=== PATIENT | male | born 1945 | race Caucasian/White ===

== ENCOUNTER 2019-11-02 11:52 | Emergency (ER) | payer BC, SELFPAY ==
--- NOTE | ~2019-11-02 | CT_ITS ---
EXAMINATION: CT brain wo con DATE: 11/02/2019 13:03 INDICATION: Dizziness. TECHNIQUE: Computed tomography (CT) of the head was performed without intravenous contrast. The mA wa s adjusted according to patient size. Iterative reconstruction technique was employed. The dose-lengt h product was 681.00 mGy-cm. COMPARISON: Head CT 07/07/2006 FINDINGS: There are small old infarcts in right cerebellum. There is chronic encephalomalacia in ante roinferior right temporal lobe There is no intracranial hemorrhage, acute infarction, or abnormal int racranial mass lesion. The ventricles are normal in size. There is mucosal thickening in the paranasa l sinuses. The mastoid air cells are normal. The orbits are normal. There is posterior scalp soft tis tonya swelling. IMPRESSION: 1. 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 2. Chronic encephalomalacia in anteroinferior right temporal lobe, which may be secondary to old infa rct or old traumatic brain injury. Reviewed, dictated and finalized at location A. CTOR OF RESERVATIONS IMPRESSION: 1. 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 2. Chronic encephalomalacia in anteroinferior right temporal lobe, which may be secondary to old infarct or old traumatic brain injury.
--- NOTE | 2019-11-02 12:20 | ECG_ITS ---
Measurements Intervals [place] Rate: 57 P: 53 [place]: 190 QRS: -33 QRSD: 126 T: 67 QT: 475 QTc: 464 Interpretive Statements SINUS BRADYCARDIA LEFT AXIS DEVIATION BORDERLINE AV CONDUCTION DELAY INTRAVENTRICULAR CONDUCTION DELAY LEFT VENTRICULAR HYPERTROPHY AND ST-T CHANGE DELAYED PRECORDIAL R/S TRANSITION BASELINE ARTIFACT- I, II, III, AVR, AVL, V1-V3 BORDERLINE ECG Electronically Signed On 11-02-2019 13:22:54 STAFF REPORTER by Tra Guillaume D.O.
[2019-11-02 12:31] VITALS: BP 120/61; PULSE 52; RESP 16; O2SAT 95
[2019-11-02 12:37] LABS: Basophils Percent Auto 0.7 % (0.2-1.2); Eosinophils Absolute Auto 0.2 K/mm3 (0-0.3); Eosinophils Percent Auto 3.6 % (0-4.4); Hematocrit 37.3 % (42.0-52.0); Hemoglobin 12.6 g/dL (14.0-18.0); Immature Granulocyte Absolute 0.01 K/mm3 (0.00-0.031); Immature Granulocyte Percent A 0.2 % (0-0.5); Lymphocytes Absolute Auto 1.02 K/mm3 (0.9-3.2); Lymphocytes Percent Auto 22.7 % (18.3-44.2); Mean Corpuscular HGB Conc 33.8 g/dl (32-36); Mean Corpuscular Hemoglobin 29.8 pg (26-34); Mean Corpuscular Volume 88.2 fl (80-100); Mean Platelet Volume 9.7 fl (7.4-10.4); Monocytes Absolute Auto 0.5 K/mm3 (0.1-0.6); Monocytes Percent Auto 10.4 % (2.6-8.5); Neutrophils Absolute Auto 2.8 K/mm3 (1.3-6.7); Neutrophils Percent Auto 62.4 % (45.5-73.1); Platelet Count Result 221 k/mm3 (150-375); Red Blood Count 4.23 M/mm3 (4.6-6.20); Red Cell Distribution Width 13.4 % (11.5-14.5); White Blood Count 4.5 K/mm3 (4.5-10.0)
--- NOTE | 2019-11-02 12:42 | PC.NURSE ---
to ct scan
[2019-11-02 12:44] LABS: Glucose Point of Care 121 (65-105)
[2019-11-02 12:48] LABS: Prothrombin Time 12.6 Seconds (11.1-14.7)
[2019-11-02 12:49] LABS: Blood Urea Nitrogen 23 mg/dL (9-20); Carbon Dioxide 28 mmol/L (22-30); Chloride 104 mmol/L (98-107); Estimated CRCL calculation 78 ml/min; Estimated Glomerular Filt Rate > 60; Glucose 112 mg/dL (75-110); Partial Thromboplastin Time 27.1 SECONDS (22.3-36.8); Potassium 4.1 mmol/L (3.4-5.0); Sodium 141 mmol/L (137-145)
[2019-11-02 13:00] LABS: Troponin I 0.021 ng/mL (0.000-0.034)
[2019-11-02] MEDS: MECLIZINE HCL 25 MG TABLET PO (13:05)
[2019-11-02] MEDS: ONDANSETRON INJ 4 MG/2 ML VIAL IV PUSH (13:06)
[2019-11-02] MEDS: SODIUM CHLORIDE 0.9% IV 1,000 ML 999 ML IV CONT (13:06)
[2019-11-02 13:14] VITALS: BP 127/77; PULSE 56; RESP 20; O2SAT 96
--- NOTE | 2019-11-02 13:14 | ED.DIZZY ---
HPI - Dizziness General Chief Complaint: Dizziness Stated Complaint: DIZZINESS Time Seen by Provider: 11/02/19 12:20 Source: patient and RN notes reviewed Mode of arrival: ambulatory Limitations: no limitations History of Present Illness HPI Narrative: Pt is a 73 y/o male with a Hx of vertigo, who presents to the ED with c/o dizziness. He notes that he has chronic intermittent tinnitus, and states that he was evaluated at his PCP, Dr. Chapa's office earlier today for recent tinnitus in his rt ear. Pt notes that he became dizzy while at his appointment which prompted Dr. Chapa to send the pt to the ED. He states that he feels off balance. He also currently reports a headache, but denies any vomiting, ABD pain, CP, numbness, otalgia, or visual changes. Pt also notes that he hasn't eaten much today. MD elicited complaint: dizziness Pertinent past history: other (vertigo) Timing: sudden onset Description: off-balance History of similar symptoms: Yes Associated symptoms: tinnitus (rt ear) and other (headache) Related Data Home Medications Medication Instructions Recorded Confirmed furosemide 40 mg PO DAILY 08/09/19 08/18/19 isosorbide mononitrate 30 mg PO DAILY 08/09/19 08/18/19 evolocumab [Repatha Syringe] 140 mg SUBCUT USEASDIRECTD 08/18/19 08/18/19 insulin aspart U-100 [Novolog See Rx Instructions .ROUTE .COMPLEX 08/18/19 08/18/19 Flexpen U-100 Insulin] insulin glargine [Lantus Solostar 40 unit SUBCUT BID 08/18/19 08/18/19 U-100 Insulin] omeprazole 40 mg DAILY 08/18/19 08/18/19 oseltamivir 75 mg PO BID 08/18/19 08/18/19 acetaminophen 325 mg tablet 325 mg PO Q6H PRN 09/07/19 albuterol sulfate 90 mcg/actuation 1 puff INHALATION Q4H PRN 09/07/19 aerosol inhaler aspirin 81 mg tablet,delayed 81 mg PO DAILY 09/07/19 release Allergies Allergy/AdvReac Type Severity Reaction Status Date / Time Penicillins Allergy Severe Anaphylaxis Verified 11/02/19 13:10 liraglutide Allergy Unknown Hives / Verified 11/02/19 13:10 Red Face Wfiboqk-Ahu-Ebu Reductase AdvReac Unknown Muscle Verified 11/02/19 13:11 Inhibitor Spasms Review of Systems Review of Systems: Narrative: CONSTITUTIONAL: Denies fever, chills, or sweats. EYES: Denies visual changes, redness, or discharge. ENT: Reports tinnitus in rt ear. Denies otalgia. CARDIOVASCULAR: Denies chest pain, palpitations, or edema. RESPIRATORY: Denies cough or dyspnea. GASTROINTESTINAL: Denies abdominal pain, nausea, vomiting, or diarrhea. NEUROLOGIC: Denies numbness or weakness. Reports headache and dizziness. All systems reviewed & are unremarkable except as noted in HPI and below PMFSH Past Medical History Medical History (Updated 11/02/19 @ 15:04 by Anika Banks MD) Abnormality of gait CAD (coronary artery disease) DM neuropathy with neurologic complication Dyslipidemia GERD (gastroesophageal reflux disease) Hypertension Morbid (severe) obesity due to excess calories Vertigo Surgical History Surgical History Hx of tonsillectomy S/P CABG (coronary artery bypass graft) Stented coronary artery Family History Family History (Updated 08/18/19 @ 11:51 by Betsy Mitchell, RN) Father Family history of heart disease in male family member before age 55 Hypertension Acute myocardial infarction Mother Family history of heart disease in male family member before age 55 Asthma Acute myocardial infarction Emphysema of lung Sibling Family history of kidney disease Acute myocardial infarction Hypertension Family history of heart disease in male family member before age 55 Sibling Acute myocardial infarction Family history of heart disease in male family member before age 55 Sibling Emphysema of lung Cerebrovascular accident Social History Social History Smoking status: Never smoker Second hand tobacco smoke exposure:
[2019-11-02 14:11] VITALS: BP 132/72; PULSE 50; RESP 16; O2SAT 99
--- NOTE | 2019-11-02 14:13 | PC.NURSE ---
no dizziness, chest pain or sob at this time.
--- NOTE | 2019-11-02 14:27 | PC.NURSE ---
urine sent to lab
[2019-11-02 14:43] LABS: Add Urine Microscopic? YES; Appearance Urine Clear (Clear); Bilirubin Urine Negative (Negative); Blood Urine Negative (Negative); Color Urine Straw (Yellow); Glucose Urine UA Negative (Negative); Ketones Urine Negative (Negative); Leukocyte Esterase Ur Negative LEU/UL (Negative); Mucus Urine Rare /lpf; Nitrate Urine Negative (Negative); Protein Urine 1+ mg/dL (Negative); Urobilinogen Urine Negative mg/dL (<2.0); WBC Urine 0-3 /hpf
[2019-11-02 15:51] VITALS: BP 130/72; PULSE 50; RESP 16; O2SAT 99
== END 2019-11-02 15:50 | disposition home or self-care (01) ==
PROVIDERS: Emergency Provider Emergency Medicine; PCP Family Medicine
DX: H81.11 Benign paroxysmal vertigo, right ear (principal); H93.11 Tinnitus, right ear; I25.10 Atherosclerotic heart disease of native coronary artery without angina pectoris; E11.40 Type 2 diabetes mellitus with diabetic neuropathy, unspecified; E11.44 Type 2 diabetes mellitus with diabetic amyotrophy; Z79.4 Long term (current) use of insulin; E78.5 Hyperlipidemia, unspecified; K21.9 Gastro-esophageal reflux disease without esophagitis; I10 Essential (primary) hypertension; E66.01 Morbid (severe) obesity due to excess calories; Z68.38 Body mass index [BMI] 38.0-38.9, adult; Z95.1 Presence of aortocoronary bypass graft; Z95.5 Presence of coronary angioplasty implant and graft; R00.1 Bradycardia, unspecified; R94.31 Abnormal electrocardiogram [ECG] [EKG]; I51.7 Cardiomegaly; I45.9 Conduction disorder, unspecified; G93.89 Other specified disorders of brain
CPT/HCPCS: 36415; 70450; 80048; 81001; 82948; 84484; 85025; 85610; 85730; 93005; 96361; 96374; 99284; A9270; J2405; J7030

== ENCOUNTER 2019-12-24 10:08 | Outpatient (CLI) | payer BC, SELFPAY ==
--- NOTE | ~2019-12-24 | XR_ITS ---
XR chest 2V DATE: 12/24/2019 10:31 INDICATION: Shortness of breath TECHNIQUE: PA and lateral views COMPARISON: 06/11/2019 2 view chest FINDINGS: Status post sternotomy/coronary artery bypass graft surgery. Normal heart size. Aortic calcification. No hilar or mediastinal enlargement. There is mild chronic discoid scarring in the left lower lung. No pulmonary infiltrate or consolidati on, pleural effusion or pulmonary vascular congestion or pneumothorax is detected. IMPRESSION: Status post sternotomy/CABG No active cardiopulmonary disease or significant change since 06/11/2019 Reviewed, dictated and finalized at location D.
== END 2019-12-24 10:09 | disposition home or self-care (01) ==
LOC: ANHIMG 10:23
PROVIDERS: PCP Family Medicine; Visit Provider Family Medicine
DX: R06.02 Shortness of breath (principal); Z95.1 Presence of aortocoronary bypass graft
CPT/HCPCS: 71046

== ENCOUNTER 2020-10-18 07:40 | Outpatient (CLI) | payer BC, SELFPAY ==
--- NOTE | ~2020-10-18 | NM_ITS ---
EXAMINATION: NM bone scan whole body DATE: 10/18/2020 11:33 INDICATION: Prostate cancer. TECHNIQUE: 23.6 mCi Tc-99m HDP was administered intravenously. Delayed whole-body scintigrams were o btained. COMPARISON: CT abdomen and pelvis 10/18/2020, chest 2 views 10/18/2020 FINDINGS: There is joint-centered increased activity at the acromioclavicular joints, sternoclavicula r joints, right wrist, right knee, left ankle, and bilateral feet without radiographic comparison, li emily osteoarthritis. There is focal increased activity in the anterior right rib correlating with a h ealed fracture by CT. There is an old healed fracture deformity of left femoral diaphysis. There is i ncreased activity in left kidney correlating with osteoarthritis on radiographs. There is increased a ctivity in the sternum correlating with changes of sternotomy on radiographs. IMPRESSION: 1. No evidence of metastatic disease. Reviewed, dictated and finalized at location A. IC HEALTH TECHNICIAN
--- NOTE | ~2020-10-18 | CT_ITS ---
EXAMINATION: CT abdomen pelvis w con INDICATION: Prostate cancer TECHNIQUE: Computed tomographic images of the abdomen and pelvis were obtained after the administrati on of 100 cc of Omnipaque 350 intravenous contrast. The dose-length product (DLP) was 1694.45 mGy-cm. Automated exposure control and iterative reconstruction technique were employed. COMPARISON: None available FINDINGS: The lung bases are clear. The heart size is normal. The liver, spleen, pancreas, gallbladde r, and adrenal glands are normal. There is an apparent 2.7 x 2.1 cm enhancing mass of the right mid k idney. Cortical parenchymal scarring is noted in the otherwise normal-appearing left kidney. There is calcified atherosclerosis of the aorta and many of the other arteries. There is no free intraperiton eal gas or evidence of bowel obstruction. No pathologically enlarged abdominal or pelvic lymph nodes are identified. The appendix is normal. There is mild lumbar spondylosis. No suspicious osseous lesio ns are identified. IMPRESSION: 1. No evidence of metastatic disease. 2. Right kidney mass suspicious for renal cell carcinoma. Consider further evaluation by MRI without and with contrast. Reviewed, dictated and finalized at location A. RVISOR CHASSIS ASSEMBLY IMPRESSION: 1. No evidence of metastatic disease. 2. Right kidney mass suspicious for renal cell carcinoma. Consider further eval uation by MRI without and with contrast.
--- NOTE | ~2020-10-18 | XR_ITS ---
EXAMINATION: XR chest 2V EXAM DATE: 10/18/2020 08:07 INDICATION: Prostate cancer. TECHNIQUE: Frontal and lateral projections of the chest obtained and reviewed. Comparison is made to prior examination from 12/24/2019. FINDINGS: Sternotomy wires are present without findings to suggest sternal dehiscence. The lungs are clear. There are no pleural effusions. The cardiomediastinal silhouette is within normal limits. There is no pneumothorax suspected. There are no osteoblastic or osteolytic lesions identified. The re is no significant interval change. IMPRESSION: No acute cardiopulmonary findings. Reviewed, dictated and finalized at location B. SUPERVISOR PIPE LINES
[2020-10-18 08:20] LABS: Estimated Glomerular Filt Rate 59
== END 2020-10-18 07:41 | disposition home or self-care (01) ==
PROVIDERS: PCP Family Medicine; Visit Provider Urology
DX: C61 Malignant neoplasm of prostate (principal); N28.89 Other specified disorders of kidney and ureter
CPT/HCPCS: 71046; 74177; 78306; A9561; Q9967

== ENCOUNTER 2020-10-23 07:44 | Outpatient (CLI) | payer BC, SELFPAY ==
--- NOTE | ~2020-10-23 | MR_ITS ---
EXAMINATION: MR abdomen wo/w con DATE: 10/23/2020 09:20 INDICATION: Neoplasm of uncertain behavior of the right kidney. TECHNIQUE: Magnetic resonance imaging (MRI) of the abdomen was performed without and with 20 mL Multi felecia intravenous contrast. Sequences included coronal T2-weighted SS-FSE, coronal and axial FS 2D-F IESTA, axial STIR FSE, axial T2-weighted SS-FSE, axial T2-weighted FS SS-FSE, axial diffusion-weighte d SE, axial dual-echo T1-weighted FSPGR, and axial and coronal T1-weighted LAVA. Postcontrast axial T 1-weighted LAVA images were obtained in a time course. Postcontrast coronal T1-weighted LAVA images w ere obtained. COMPARISON: CT abdomen and pelvis dated 10/18/2020 FINDINGS: Heart size is normal. No pericardial or pleural effusion. Metallic magnetic field artifact related to median sternotomy wires and likely coronary artery bypass grafting. Liver, gallbladder, spleen, bila teral adrenal glands and left kidney are normal. 2.0 cm heterogeneously enhancing mass at the lower p ole of the right kidney consistent with renal cell carcinoma. There is an additional 1.8 cm partially exophytic nonenhancing T2 hyperintense cyst at the posterior upper pole of the right kidney. Multipl e small T2 hyperintense cystic lesions but solid enhancing components throughout pancreas, the larges t at the uncinate process measuring 14 x 10 mm, 8-9 mm lesions in the uncinate process and tail of th e pancreas with a few additional tiny scattered cystic lesions throughout the pancreas suggesting sma ll pseudocysts or dilated side branches related to chronic pancreatitis. Visual is portions of the mary lou wels are unremarkable. No pathologically enlarged abdominal lymphadenopathy. Moderate disc height los s with degenerative endplate changes at T10-T11 and L2-L3. Bones are otherwise unremarkable. IMPRESSION: 1. 2.0 cm enhancing mass at the lower pole of the right kidney consistent with renal cell carcinoma. 2. Multiple small simple appearing cystic lesions at the pancreas likely small pseudocysts or dilated side branches related to chronic pancreatitis. Recommend two-year follow-up pre and postcontrast MRI . Reviewed, dictated and finalized at location A. REWIND MACHINE OPERATOR IMPRESSION: 1. 2.0 cm enhancing mass at the lower pole of the right kidney consistent with renal cell carcinoma. 2. Multiple small simple appearing cystic lesions at the pancreas likely small pseudocysts or dilated side branches related to chronic pancreatitis. Recommend two-year follow-up pre and postcontrast MRI.
== END 2020-10-23 07:45 | disposition home or self-care (01) ==
PROVIDERS: PCP Family Medicine; Visit Provider Urology
DX: D41.01 Neoplasm of uncertain behavior of right kidney (principal)
CPT/HCPCS: 74183; A9577

== ENCOUNTER → 2021-01-01 02:00 | Outpatient (CLI) | payer BC, SELFPAY ==
[2021-01-01 20:13] LABS: SARS-CoV-2 RNA PCR Negative
== END ==
PROVIDERS: PCP Family Medicine; Visit Provider Urology
DX: Z01.812 Encounter for preprocedural laboratory examination (principal); Z20.822 Contact with and (suspected) exposure to COVID-19
CPT/HCPCS: C9803; U0003; U0005

== ENCOUNTER 2021-01-01 10:28 | Outpatient (CLI) | payer BC, SELFPAY ==
[2021-01-01 11:06] LABS: Anion Gap 6 mmol/L (8-16); Blood Urea Nitrogen 21 mg/dL (9-20); Calcium 8.5 mg/dL (8.4-10.2); Carbon Dioxide 33 mmol/L (22-30); Chloride 102 mmol/L (98-107); Estimated Glomerular Filt Rate 54; Glucose 198 mg/dL (75-110); Potassium 4.4 mmol/L (3.4-5.0); Sodium 141 mmol/L (137-145)
--- NOTE | 2021-01-01 13:15 | ECG_ITS ---
Measurements Intervals [place] Rate: 59 P: 60 CO: 188 QRS: -44 QRSD: 137 T: 117 QT: 485 QTc: 484 Interpretive Statements SINUS BRADYCARDIA WITH SINUS ARRHYTHMIA LEFT AXIS DEVIATION INTRAVENTRICULAR CONDUCTION DELAY LEFT VENTRICULAR HYPERTROPHY AND ST-T CHANGE POOR R WAVE PROGRESSION, ANTERIOR LEADS BORDERLINE ECG Electronically Signed On 01-01-2021 10:48:59 CDT by Tra Guillaume D.O.
== END 2021-01-01 10:29 | disposition home or self-care (01) ==
LOC: ANHSURGERY 10:30
PROVIDERS: Anesthesiology; PCP Family Medicine; Visit Provider Urology
DX: E11.9 Type 2 diabetes mellitus without complications (principal); I10 Essential (primary) hypertension; Z01.818 Encounter for other preprocedural examination; I45.9 Conduction disorder, unspecified
CPT/HCPCS: 36415; 80048; 93005

== ENCOUNTER 2021-01-04 00:54 | Day surgery (SDC) | payer BC, SELFPAY ==
--- NOTE | 2020-12-13 10:01 | PM.HPGS ---
History of Present Illness History of Present Illness Consent: Risks, benefits, and alternatives have been discussed and questions answered. Patient agrees to proceed with procedure. Chief complaint: Prostate CA Narrative: Lopez Guzman is a 75 year old male who is a patient of Dr. Angelina Castano that recently presented with a PSA of 11.0ng/dl. He was diagnosed with clinically localized adenocarcinoma of the prostate and is scheduled for definitive pelvic IMRT. He's opted for placement of SpaceOAR to minimize risk of rectal irritation. Review of Systems Cardiovascular: Cardiovascular: Denies chest pain, Denies lightheadedness, Denies palpitations and Denies dyspnea Respiratory: Respiratory: Denies dyspnea Gastrointestinal: Gastrointestinal: Denies diarrhea, Denies nausea and Denies vomiting Genitourinary: Genitourinary: Denies hematuria and Denies dysuria Endocrine: Endocrine: Denies palpitations PMFSH Past Medical History Medical History Abnormality of gait CAD (coronary artery disease) DM neuropathy with neurologic complication Dyslipidemia GERD (gastroesophageal reflux disease) Hypertension Morbid (severe) obesity due to excess calories Vertigo Surgical History Surgical History Hx of tonsillectomy S/P CABG (coronary artery bypass graft) Stented coronary artery Family History Family History Father Family history of heart disease in male family member before age 55 Hypertension Acute myocardial infarction Mother Family history of heart disease in male family member before age 55 Asthma Acute myocardial infarction Emphysema of lung Sibling Family history of kidney disease Acute myocardial infarction Hypertension Family history of heart disease in male family member before age 55 Sibling Acute myocardial infarction Family history of heart disease in male family member before age 55 Sibling Emphysema of lung Cerebrovascular accident Social History Social History Social History: Smoking status: Never smoker Second hand tobacco smoke exposure: No Alcohol intake: never Substance use: never Substance use type: does not use Gender identity (if verbalized by the patient): Male Meds Home Medications and Allergies Home Medications Medication Instructions Recorded Confirmed Type evolocumab [Repatha Syringe] 140 mg SUBCUT USEASDIRECTD 08/18/19 05/16/20 History acetaminophen 325 mg tablet 325 mg PO Q6H PRN 09/07/19 05/16/20 History clobetasol 0.05 % topical cream 1 applic TOPICAL DAILY #30 gm 04/13/20 05/16/20 Rx carvedilol 12.5 mg tablet 25 mg PO Q12H #60 tablet 05/16/20 05/16/20 Rx flash glucose scanning reader #1 each 06/02/20 Rx insulin glargine 100 unit/mL (3 40 unit SUBCUT BID 90 Days #72 ml 06/29/20 Rx mL) subcutaneous pen omeprazole 40 mg capsule,delayed 40 mg PO DAILY #90 cap 06/29/20 Rx release nitroglycerin 0.4 mg sublingual 0.4 mg SUBLINGUAL Q5M PRN #90 07/27/20 Rx tablet tablet insulin aspart U-100 100 unit/mL See Rx Instructions .ROUTE 08/01/20 Rx (3 mL) subcutaneous pen .COMPLEX #15 ml nystatin 100,000 unit/gram topical 1 applic TOPICAL BID #60 gm 09/05/20 Rx cream furosemide 40 mg tablet 40 mg PO DAILY #90 tablet 09/26/20 Rx isosorbide dinitrate 30 mg tablet 30 mg PO TID #90 tablet 10/30/20 Rx losartan 25 mg tablet 12.5 mg PO DAILY tablet 11/06/20 11/06/20 History trazodone 50 mg tablet 50 mg PO .qhs #30 tablet 11/06/20 11/06/20 Rx prasugrel 10 mg tablet 10 mg PO DAILY #90 tablet 11/14/20 Rx flash glucose sensor #2 each 11/21/20 Rx Allergies Allergy/AdvReac Type Severity Reaction Status Date / Time Penicillins Allergy Severe Anaphylaxis Verified 11/06/20 14:43 liraglutide Allergy Unk
[2020-12-15 11:36] VITALS: BMI 40.9
--- NOTE | 2020-12-27 14:59 | PC.NURSE ---
STATES NO CHANGE IN HEALTH HX SINCE LAST INTERVIEW ON 12/15/20. DID HAVE POSITIVE URINE CULTURE AND WAS TREATED WITH AN ANTIBIOTIC
--- NOTE | 2020-12-28 07:27 | PM.HPGS ---
History of Present Illness History of Present Illness Consent: Risks, benefits, and alternatives have been discussed and questions answered. Patient agrees to proceed with procedure. Chief complaint: Prostate CA Narrative: Lopez Guzman is a 75 year old male who is a patient of Dr. Angelina Castano that recently presented with a PSA of 11.0ng/dl. He was diagnosed with clinically localized adenocarcinoma of the prostate and is scheduled for definitive pelvic IMRT. He's opted for placement of SpaceOAR to minimize risk of rectal irritation. Review of Systems Cardiovascular: Cardiovascular: Denies chest pain, Denies lightheadedness, Denies palpitations and Denies dyspnea Respiratory: Respiratory: Denies dyspnea Gastrointestinal: Gastrointestinal: Denies diarrhea, Denies nausea and Denies vomiting Genitourinary: Genitourinary: Denies hematuria and Denies dysuria Endocrine: Endocrine: Denies palpitations PMFSH Past Medical History Medical History Abnormality of gait CAD (coronary artery disease) DM neuropathy with neurologic complication Dyslipidemia GERD (gastroesophageal reflux disease) Hypertension Morbid (severe) obesity due to excess calories Vertigo Surgical History Surgical History Hx of tonsillectomy S/P CABG (coronary artery bypass graft) Stented coronary artery Family History Family History Father Family history of heart disease in male family member before age 55 Hypertension Acute myocardial infarction Mother Family history of heart disease in male family member before age 55 Asthma Acute myocardial infarction Emphysema of lung Sibling Family history of kidney disease Acute myocardial infarction Hypertension Family history of heart disease in male family member before age 55 Sibling Acute myocardial infarction Family history of heart disease in male family member before age 55 Sibling Emphysema of lung Cerebrovascular accident Social History Social History Social History: Smoking status: Never smoker Second hand tobacco smoke exposure: No Alcohol intake: never Substance use: never Substance use type: does not use Gender identity (if verbalized by the patient): Male Spiritual care concerns: No Meds Home Medications and Allergies Home Medications Medication Instructions Recorded Confirmed Type evolocumab [Repatha Syringe] 140 mg SUBCUT USEASDIRECTD 08/18/19 12/27/20 History acetaminophen 325 mg tablet 325 mg PO Q6H PRN 09/07/19 12/27/20 History carvedilol 12.5 mg tablet 25 mg PO Q12H #60 tablet 05/16/20 12/27/20 Rx flash glucose scanning reader #1 each 06/02/20 12/27/20 Rx insulin glargine 100 unit/mL (3 40 unit SUBCUT BID 90 Days #72 ml 06/29/20 12/27/20 Rx mL) subcutaneous pen omeprazole 40 mg capsule,delayed 40 mg PO DAILY #90 cap 06/29/20 12/27/20 Rx release nitroglycerin 0.4 mg sublingual 0.4 mg SUBLINGUAL Q5M PRN #90 07/27/20 12/27/20 Rx tablet tablet insulin aspart U-100 100 unit/mL See Rx Instructions .ROUTE 08/01/20 12/27/20 Rx (3 mL) subcutaneous pen .COMPLEX #15 ml furosemide 40 mg tablet 40 mg PO DAILY #90 tablet 09/26/20 12/27/20 Rx isosorbide dinitrate 30 mg tablet 30 mg PO TID #90 tablet 10/30/20 12/27/20 Rx prasugrel 10 mg tablet 10 mg PO DAILY #90 tablet 11/14/20 12/27/20 Rx flash glucose sensor #2 each 11/21/20 12/27/20 Rx clobetasol 1 applic TOPICAL DAILY PRN 12/15/20 12/27/20 History losartan 25 mg PO BID 12/15/20 12/27/20 History nystatin 1 applic TOPICAL BID PRN 12/15/20 12/27/20 History ranolazine 500 mg PO Q12H 12/15/20 12/27/20 History trazodone 50 mg PO .qhs PRN 12/15/20 12/27/20 History Allergies Allergy/AdvReac Type Severity Reaction Status Date / Time Penicillins Aller
--- NOTE | 2021-01-04 06:59 | WPDHPUPDATE1 ---
History and Physical Update Update Date/Time: 01/04/21 06:59 History and Physical has been reviewed, including an updated exam of the patient. There are NO changes in the patient's condition. Risks, benefits, and alternatives have been discussed and questions answered. Patient agrees to proceed with procedure.
--- NOTE | 2021-01-04 07:55 | WPDANESEPPF ---
Anes - Initial Pre Proc Eval Procedure: Operation Date: 01/04/21 13:00 Proposed Procedures p Insertion SpaceOAR Hydrogel System - Filiberto Castano MD Date/Time: 01/04/21 07:55 Surgeon: Filiberto Castano MD Pre Op Diagnosis: Prostate CA Patient Data Age: 75 Gender: M Height: 6 ft 1 in Weight: 140.9 kg Allergies Allergy/AdvReac Type Severity Reaction Status Date / Time Penicillins Allergy Severe Anaphylaxis Verified 12/28/20 14:42 liraglutide Allergy Unknown Hives / Verified 12/28/20 14:42 Red Face Jwxsjyv-Won-Szs Reductase AdvReac Unknown Muscle Verified 12/28/20 14:42 Inhibitor Spasms Home Medications Medication Instructions Recorded Confirmed Type evolocumab [Repatha Syringe] 140 mg SUBCUT USEASDIRECTD 08/18/19 12/28/20 History acetaminophen 325 mg tablet 325 mg PO Q6H PRN 09/07/19 12/28/20 History carvedilol 12.5 mg tablet 25 mg PO Q12H #60 tablet 05/16/20 12/28/20 Rx flash glucose scanning reader #1 each 06/02/20 12/28/20 Rx insulin glargine 100 unit/mL (3 40 unit SUBCUT BID 90 Days #72 ml 06/29/20 12/28/20 Rx mL) subcutaneous pen omeprazole 40 mg capsule,delayed 40 mg PO DAILY #90 cap 06/29/20 12/28/20 Rx release nitroglycerin 0.4 mg sublingual 0.4 mg SUBLINGUAL Q5M PRN #90 07/27/20 12/28/20 Rx tablet tablet insulin aspart U-100 100 unit/mL See Rx Instructions .ROUTE 08/01/20 12/28/20 Rx (3 mL) subcutaneous pen .COMPLEX #15 ml furosemide 40 mg tablet 40 mg PO DAILY #90 tablet 09/26/20 12/28/20 Rx isosorbide dinitrate 30 mg tablet 30 mg PO TID #90 tablet 10/30/20 12/28/20 Rx prasugrel 10 mg tablet 10 mg PO DAILY #90 tablet 11/14/20 12/28/20 Rx flash glucose sensor #2 each 11/21/20 12/28/20 Rx clobetasol 1 applic TOPICAL DAILY PRN 12/15/20 12/28/20 History losartan 25 mg PO BID 12/15/20 12/28/20 History nystatin 1 applic TOPICAL BID PRN 12/15/20 12/28/20 History ranolazine 500 mg PO Q12H 12/15/20 12/28/20 History trazodone 50 mg PO .qhs PRN 12/15/20 12/28/20 History Patient hx anesthesia problems: none Family hx anesthesia problems: none [facility] Past Medical History Medical History (Updated 12/28/20 @ 15:57 by Leonila Chapa MD) Abnormality of gait CAD (coronary artery disease) DM neuropathy with neurologic complication Dyslipidemia GERD (gastroesophageal reflux disease) Hypertension Morbid (severe) obesity due to excess calories Vertigo Surgical History Surgical History Hx of tonsillectomy S/P CABG (coronary artery bypass graft) Stented coronary artery Family History Family History Father Family history of heart disease in male family member before age 55 Hypertension Acute myocardial infarction Mother Family history of heart disease in male family member before age 55 Asthma Acute myocardial infarction Emphysema of lung Sibling Family history of kidney disease Acute myocardial infarction Hypertension Family history of heart disease in male family member before age 55 Sibling Acute myocardial infarction Family history of heart disease in male family member before age 55 Sibling Emphysema of lung Cerebrovascular accident Social History Social History (Updated 12/28/20 @ 14:43 by Flor Figueroa) Social History: Smoking status: Never smoker Second hand tobacco smoke exposure: No Alcohol intake: never Substance use: never Substance use type: does not use Living arrangements: alone Gender identity (if verbalized by the patient): Male Spiritual care concerns: No Anes - Eval Final PreProcedure Day of Procedure 01/04/21 07:55 Patient weight: overweight Heart: regular rate and rhythm Lungs: clear to auscultation Airway: Mallampati scale class II Neurological: alert and oriented Last oral intake: >/= 8 hours ASA classification: III Emergent: no Anesthetic plan: proceed Anesth
[2021-01-04] MEDS: LACTATED RINGERS 1,000 ML 30 ML IV CONT (11:25)
[2021-01-04 11:37] VITALS: BP 152/74; PULSE 67; RESP 18; TEMP 36.2; O2SAT 95
[2021-01-04 11:37] LABS: Glucose Point of Care 174 (65-105)
--- NOTE | 2021-01-04 12:27 | WPDANESEPPF ---
Anes - Initial Pre Proc Eval Procedure: Operation Date: 01/04/21 13:00 Proposed Procedures p Insertion SpaceOAR Hydrogel System - Filiberto Castano MD Date/Time: 01/04/21 12:27 Surgeon: Filiberto Castano MD Pre Op Diagnosis: Prostate CA Patient Data Age: 75 Gender: M Height: 6 ft 1 in Weight: 141 kg Last Vital Signs Temp 97.2 F L 01/04/21 11:37 Pulse 67 01/04/21 11:37 Resp 18 01/04/21 11:37 BP 152/74 H 01/04/21 11:37 Pulse Ox 95 01/04/21 11:37 Allergies Allergy/AdvReac Type Severity Reaction Status Date / Time Penicillins Allergy Severe Anaphylaxis Verified 01/04/21 11:16 liraglutide Allergy Unknown Hives / Verified 01/04/21 11:16 Red Face Uaqwsla-Ebj-Bkk Reductase AdvReac Unknown Muscle Verified 01/04/21 11:16 Inhibitor Spasms Home Medications Medication Instructions Recorded Confirmed Type evolocumab [Repatha Syringe] 140 mg SUBCUT USEASDIRECTD 08/18/19 01/04/21 History acetaminophen 325 mg tablet 325 mg PO Q6H PRN 09/07/19 01/04/21 History carvedilol 12.5 mg tablet 25 mg PO Q12H #60 tablet 05/16/20 01/04/21 Rx flash glucose scanning reader #1 each 06/02/20 01/04/21 Rx insulin glargine 100 unit/mL (3 40 unit SUBCUT BID 90 Days #72 ml 06/29/20 01/04/21 Rx mL) subcutaneous pen omeprazole 40 mg capsule,delayed 40 mg PO DAILY #90 cap 06/29/20 01/04/21 Rx release nitroglycerin 0.4 mg sublingual 0.4 mg SUBLINGUAL Q5M PRN #90 07/27/20 01/04/21 Rx tablet tablet insulin aspart U-100 100 unit/mL See Rx Instructions .ROUTE 08/01/20 01/04/21 Rx (3 mL) subcutaneous pen .COMPLEX #15 ml furosemide 40 mg tablet 40 mg PO DAILY #90 tablet 09/26/20 01/04/21 Rx isosorbide dinitrate 30 mg tablet 30 mg PO TID #90 tablet 10/30/20 01/04/21 Rx prasugrel 10 mg tablet 10 mg PO DAILY #90 tablet 11/14/20 01/04/21 Rx flash glucose sensor #2 each 11/21/20 01/04/21 Rx clobetasol 1 applic TOPICAL DAILY PRN 12/15/20 01/04/21 History losartan 25 mg PO BID 12/15/20 01/04/21 History nystatin 1 applic TOPICAL BID PRN 12/15/20 01/04/21 History ranolazine 500 mg PO Q12H 12/15/20 01/04/21 History trazodone 50 mg PO .qhs PRN 12/15/20 01/04/21 History Laboratory Tests 01/04/21 11:26 POC Capillary Glucose 174 mg/dl H mg/dl (65-105) Patient hx anesthesia problems: none Family hx anesthesia problems: none PMFSH Past Medical History Medical History (Updated 12/28/20 @ 15:57 by Leonila Chapa MD) Abnormality of gait CAD (coronary artery disease) DM neuropathy with neurologic complication Dyslipidemia GERD (gastroesophageal reflux disease) Hypertension Morbid (severe) obesity due to excess calories Vertigo Surgical History Surgical History Hx of tonsillectomy S/P CABG (coronary artery bypass graft) Stented coronary artery Family History Family History Father Family history of heart disease in male family member before age 55 Hypertension Acute myocardial infarction Mother Family history of heart disease in male family member before age 55 Asthma Acute myocardial infarction Emphysema of lung Sibling Family history of kidney disease Acute myocardial infarction Hypertension Family history of heart disease in male family member before age 55 Sibling Acute myocardial infarction Family history of heart disease in male family member before age 55 Sibling Emphysema of lung Cerebrovascular accident Social History Social History (Updated 12/28/20 @ 14:43 by Flor Figueroa) Social History: Smoking status: Never smoker Second hand tobacco smoke exposure: No Alcohol intake: never Substance use: never Substance use type: does not use Living arrangements: alone Gender identity (if verbalized by the patient): Male Spiritual care concerns: No Anes - Eval Final PreProcedure Day of Procedure 01/04/21
[2021-01-04] MEDS: levoFLOXacin 500 MG/D5W 100 ML 500 MG/100 ML BAG 100 MG IVPB (13:12)
[2021-01-04 13:44] VITALS: BP 107/57; PULSE 53; RESP 12; O2SAT 98
[2021-01-04 13:51] LABS: Glucose Point of Care 157 (65-105)
--- NOTE | 2021-01-04 13:52 | PM.PROC ---
Procedure Note - Detailed Date of procedure: 01/04/21 Pre-op diagnosis: Prostate CA Post-op diagnosis: same Procedure performed: Placement SpaceOAR Description of procedure: This patient has been diagnosed with prostate cancer. Patient has met with a radiation oncologist who has prescribed a course of radiation for treatment of the malignancy. Please refer to the Radiation Oncologist's note for radiation method, dose, number of fractions. After discussing with the radiation oncologist and the patient, it has been agreed upon to proceed with SpaceOAR placement. The purpose of SpaceOAR is to reduce rectal irradiation during radiation therapy by placing an absorbable polyethylene glycol (PEG) hydrogel (SpaceOAR) into perirectal fat space, thereby pushing the rectum away from the prostate. Prior to the procedure, a timeout was performed confirming the patient's identity and planned the procedure. Anesthesia was induced without complication. Antibiotics were administered prophylactically, and the patient completed an enema at home prior to the procedure. The patient was positioned in the dorsal lithotomy position. A transrectal ultrasound probe was inserted per rectum with clear visualization of the prostatic base and apex. SpaceOAR hydrogel was prepared as described in the online activist?s 'Instructions For Use'. Under transrectal ultrasound guidance, a 15 cm 18G needle was inserted, transperineal, through the rectourethralis muscle and the needle tip advanced into the perirectal fat posterior to the prostate. The needle position, and downward bevel, were confirmed in both sagittal and axial nye. 3-5cc of Sterile Saline was used to hydro-dissect the space between the Denonvilliers? fascia and anterior rectal wall. Aspiration did not yield any bleeding. With the needle tip at mid gland, the axial field was viewed to confirm the needle was not in the rectal wall -- movement of the needle tip without corresponding movement of the rectal wall confirmed perirectal placement. The assembled SpaceOAR delivery system was then attached to the 18G needle. Under ultrasound guidance in the sagittal plane, a smooth, continuous injection technique was used to dispense all 10cc of the SpaceOAR hydrogel into the space between the prostate and rectum. Optimal visualization of the needle during hydrogel administration was maintained at all times. An axial measurement of the space between the prostate (mid gland) and rectum immediately post-SpaceOAR injection was noted and measured 90mm. No suspected penetration or compromise of the rectal wall occurred. Anesthesia: GLMA Surgeon: Filiberto Castano MD Estimated blood loss (mL): 0 Drains: No Packing: No Pathology: none sent Complications: No immediate complications Condition: stable Disposition: PACU
[2021-01-04 14:00] VITALS: BP 134/69; PULSE 57; RESP 12; O2SAT 96
[2021-01-04 14:15] VITALS: BP 149/65; PULSE 53; RESP 12; O2SAT 95
[2021-01-04 14:25] VITALS: BP 145/71; PULSE 53; RESP 14
[2021-01-04 14:55] VITALS: BP 168/78; PULSE 54; RESP 16
== END 2021-01-04 15:39 | disposition home or self-care (01) ==
PROVIDERS: PCP Family Medicine; Visit Provider Urology
PROC: (CPT 55874; principal; 2021-01-04 13:00)
DX: C61 Malignant neoplasm of prostate (principal); I10 Essential (primary) hypertension; E11.40 Type 2 diabetes mellitus with diabetic neuropathy, unspecified; K21.9 Gastro-esophageal reflux disease without esophagitis; E78.5 Hyperlipidemia, unspecified; Z79.4 Long term (current) use of insulin; Z95.1 Presence of aortocoronary bypass graft; Z95.5 Presence of coronary angioplasty implant and graft; Z79.02 Long term (current) use of antithrombotics/antiplatelets; E66.01 Morbid (severe) obesity due to excess calories; Z68.41 Body mass index [BMI] 40.0-44.9, adult
CPT/HCPCS: 55874; A9270; C1889; J1100; J1956; J2405; J2704; J3010; J7120

== ENCOUNTER 2021-01-13 08:25 | Outpatient (CLI) | payer BC, SELFPAY ==
--- NOTE | ~2021-01-13 | MR_ITS ---
EXAMINATION: MR pelvis wo/w con INDICATION: Prostate cancer TECHNIQUE: Coronal SSFSE ARC, Axial and Coronal 2D FIESTA FatSat, Axial T2 FS, Axial SSFSE BH ARC, Ax ial 3D DualEcho BH, Axial SSFSE-IR Edin, Axial DWI b=600, pre and dynamic postcontrast Axial LAVA ARC, WATER:POST Cor LAVA-FLEX COMPARISON: CT, 10/18/2020 CONTRAST: Multihance, 20 cc FINDINGS: There is an area of low T2 signal intensity in the right peripheral zone of the prostate wi th associated restricted diffusion which may reflect the patient's known prostate cancer. Crescentic material situated between the rectum and prostate likely relates to biopsy. There are no pathological ly enlarged pelvic lymph nodes. No dilated loops of bowel are evident. There is circumferential wall thickening of the urinary bladder, likely reflecting chronic outlet obstruction. IMPRESSION: 1. No evidence of metastatic disease. Reviewed, dictated and finalized at location A.
== END 2021-01-13 08:26 | disposition home or self-care (01) ==
PROVIDERS: PCP Family Medicine; Visit Provider Radiology Radiation Oncology
DX: C61 Malignant neoplasm of prostate (principal)
CPT/HCPCS: 72197; A9577

== ENCOUNTER 2021-03-05 18:28 | Observation (INO) | payer BC, SELFPAY ==
--- NOTE | ~2021-03-05 | CT_ITS ---
EXAMINATION: CTA brain carotid EXAM DATE: 03/05/2021 20:51 INDICATION: Headache. Neck pain. Sudden onset one hour ago. TECHNIQUE: Noncontrast head CT. Spiral CTA of the carotid arteries was performed with intravenous i njection 100 cc of Omnipaque 350. Axial, coronal, sagittal reformatted images reviewed. Additional r eformatted images created on dedicated 3-D workstation. NASCET comparable standard used to assess th e degree of arterial stenosis. Spiral CT angiogram cerebral arteries performed with the same intrave nous injection of contrast. Source images of the brain CTA transferred to dedicated workstation for 3 -D rotational image creation. Coronal, sagittal maximum intensity pixel images also reviewed. The d ose-length product (DLP) for this examination was 1820.46 mGy-cm. The exposure was tailored accordi ng to patient size, and iterative reconstruction (ASIR) was used as additional dose reduction techniq ue. Comparison made to prior head CT 11/02/2019 FINDINGS: There is moderate amount of bilateral carotid bulb plaque with 45% stenosis on the right an d 30% stenosis on the left. The left vertebral artery is dominant. At the skull base there is signifi cant arterial sclerosis to both vertebral arteries before they join the basilar artery, with near occ lusion on the right and moderate stenosis on the left. There is also significant bilateral carotid si phon arterial sclerosis, making it difficult to quantify degree of stenosis. Supraclinoid segments of both intracranial internal carotid arteries may be significantly stenotic, more on the right. There is short segment moderate to severe stenosis of the right P1 segment. The middle cerebral, posterior cerebral and anterior cerebral arteries to appear otherwise symmetric. There is no carotid or vertebr al basilar arterial dissection or fibromuscular dysplasia. There are no cerebral artery aneurysms. T he sagittal, transverse and sigmoid sinuses enhance normally, no venous sinus thrombosis. Internal ce rebral veins also enhance normally. Again there is some chronic encephalomalacia in the right temporal horn anteriorly from prior infecti on or trauma. There is no acute intraparenchymal hemorrhage. No evidence of intraparenchymal brain m ass lesion. No evidence of acute infarction. There is mild periventricular and subcortical hypodensi ty, nonspecific but probably related to small vessel ischemic disease. There is mild prominence of the sulci and ventricles related to cerebral atrophy. There is no mass effect or midline shift. Th ere is no obstructive hydrocephalus suspected. There are no extra-axial collections. There are no a reas of abnormal enhancement on the post contrast images. Incidental Findings: Moderate cervical spondylosis. Sternotomy wires. IMPRESSION: 1. No acute carotid or intracranial findings. 2. Small to moderate-sized old region temporal lobe encephalomalacia. 3. Right carotid bulb 45% stenosis. Left carotid bulb 30% stenosis. 4. Distal vertebral, and bilateral intracranial carotid arteriosclerosis causing short segment regio ns of significant stenosis. Reviewed, dictated and finalized at location B. IMPRESSION: 1. No acute carotid or intracranial findings. 2. Small to moderate-sized old region temporal lobe encephalomalacia. 3. Right carotid bulb 45% stenosis. Left carotid bulb 30% stenosis. 4. Distal vertebral, and bilateral intracranial carotid arteriosclerosis causi ng short segment regions of significant stenosis.
--- NOTE | ~2021-03-05 | MR_ITS ---
EXAMINATION: MRA brain wo con DATE: 03/06/2021 13:58 INDICATION: Intracranial arterial stenosis and atherosclerosis. Headache. TECHNIQUE: Magnetic resonance angiography (MRA) of the brain was performed without intravenous contra st with T1-weighted SPGR by the 3D [id number] technique. Maximum intensity projection 3D-reconstr uctions were obtained. COMPARISON: Head CTA 03/05/2021 FINDINGS: There is total occlusion of distal right vertebral artery. There is no significant stenosis of basila r artery or the posterior cerebral arteries. There is moderate stenosis of the intracranial internal carotid arteries. There is no significant stenosis of the anterior or middle cerebral arteries. Anter ior communicating artery is normal. There is no aneurysm. Posterior communicating arteries are not id entified. IMPRESSION: 1. 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 2. Moderate stenosis of the intracranial internal carotid arteries. Reviewed, dictated and finalized at location A.
--- NOTE | ~2021-03-05 | MR_ITS ---
EXAMINATION: MR brain/brain stem wo/w con DATE: 03/06/2021 13:58 INDICATION: Headache. TECHNIQUE: Magnetic resonance imaging (MRI) of the brain and brainstem was performed without and with 20 mL MultiHance intravenous contrast. Sequences included sagittal and axial T1-weighted FSE, axial diffusion-weighted FS EPI, axial T2*-weighted GRE, axial T2-weighted FLAIR Propeller, and axial T2-we ighted Propeller. Postcontrast sequences included axial and coronal T1-weighted FSE. Apparent diffusi on coefficient (ADC) maps were created. COMPARISON: Head CT 03/05/2021 FINDINGS: There is chronic encephalomalacia in lateral aspect of right temporal lobe. There are small old infarcts in right cerebellum. There are scattered areas of nonspecific increased T2-weighted sig nal intensity in the cerebral white matter and herminio, which is within normal limits for the patient's age. There is no intracranial hemorrhage, acute infarction, or abnormal intracranial mass lesion. The ventricles are normal in size. The mastoid air cells are normal. There is mild mucosal thickening in the ethmoid sinuses. The orbits are normal. IMPRESSION: 1. Chronic encephalomalacia in lateral aspect of right temporal lobe. 2. 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 Reviewed, dictated and finalized at location A.
[2021-03-05 18:32] VITALS: BP 203/92; PULSE 79; RESP 18; TEMP 37.1; O2SAT 96
[2021-03-05 19:27] VITALS: BP 175/86; PULSE 85; RESP 25
[2021-03-05 20:16] LABS: Basophils Percent Auto 0.5 % (0.2-1.2); Eosinophils Absolute Auto 0.1 K/mm3 (0-0.3); Eosinophils Percent Auto 2.5 % (0-4.4); Hematocrit 34.7 % (42.0-52.0); Hemoglobin 11.7 g/dL (14.0-18.0); Immature Granulocyte Absolute 0.03 K/mm3 (0.00-0.031); Immature Granulocyte Percent A 0.7 % (0-0.5); Lymphocytes Absolute Auto 0.39 K/mm3 (0.9-3.2); Lymphocytes Percent Auto 9.7 % (18.3-44.2); Mean Corpuscular HGB Conc 33.7 g/dl (32-36); Monocytes Absolute Auto 0.5 K/mm3 (0.1-0.6); Monocytes Percent Auto 12.2 % (2.6-8.5); Neutrophils Percent Auto 74.4 % (45.5-73.1); Platelet Count Result 171 k/mm3 (150-375); Red Cell Distribution Width 14.6 % (11.5-14.5)
[2021-03-05 20:25] LABS: Anion Gap 7 mmol/L (8-16); Blood Urea Nitrogen 16 mg/dL (9-20); Calcium 9.3 mg/dL (8.4-10.2); Carbon Dioxide 31 mmol/L (22-30); Chloride 102 mmol/L (98-107); Estimated CRCL calculation 93 ml/min; Estimated Glomerular Filt Rate > 60; Glucose 144 mg/dL (75-110); Potassium 4.2 mmol/L (3.4-5.0); Sodium 140 mmol/L (137-145)
[2021-03-05 21:14] VITALS: BP 190/94; PULSE 81; RESP 23; O2SAT 97
[2021-03-05 21:30] LABS: INR 0.9; Prothrombin Time 13.1 Seconds (11.1-14.7)
[2021-03-05 21:32] LABS: Partial Thromboplastin Time 27.2 SECONDS (22.3-36.8)
--- NOTE | 2021-03-05 21:41 | PC.NURSE ---
This RN called Pharmacy and spoke to Roxi to follow up on ordered medication for pt. Informed they will be sent up as soon as possible.
[2021-03-05 21:50] VITALS: BP 164/70; PULSE 72; RESP 19; O2SAT 97
[2021-03-05 22:00] VITALS: PULSE 73
[2021-03-05] MEDS: carvediloL 25 MG TABLET PO (22:00)
[2021-03-05] MEDS: LOSARTAN POTASSIUM 12.5 MG TABLET PO (22:00)
--- NOTE | 2021-03-05 22:13 | ED.HA ---
HPI - Headache General Chief Complaint: Headache Stated Complaint: SUDDEN ON SET HEADACHE-SALAS UP NECK AND INTO HEAD Time Seen by Provider: 03/05/21 18:59 History of Present Illness HPI Narrative: Patient is a 75-year-old male who presents ER with sudden onset headache and neck pain. Patient was straining to urinate and defecate when he felt discomfort in his neck that then radiated to the front of his head. Reports 8/10. It has subsided to 2/10 without any pain therapy. Reports he felt like he is having a spasm in his neck but he maintained range of motion. No chest pain or chest pressure. No numbness or tingling or dizziness. Denies slurred speech or focal weakness. Denies history of head bleed. He is on no blood thinners but does take the generic for Effient. Related Data Home Medications Medication Instructions Recorded Confirmed acetaminophen 325 mg tablet 325 mg PO Q6H PRN 09/07/19 03/06/21 clobetasol 1 applic TOPICAL DAILY PRN 12/15/20 03/06/21 losartan 12.5 mg PO BID 12/15/20 03/06/21 nystatin 1 applic TOPICAL BID PRN 12/15/20 03/06/21 ranolazine 500 mg PO Q12H 12/15/20 03/06/21 trazodone 50 mg PO PRN PRN 12/15/20 03/06/21 Pepto-Bismol 30 ml PO PRN 03/06/21 03/06/21 psyllium husk [Metamucil] 0.8 g PO HS PRN 03/06/21 03/06/21 Allergies Allergy/AdvReac Type Severity Reaction Status Date / Time Penicillins Allergy Severe Anaphylaxis Verified 03/06/21 01:53 liraglutide Allergy Unknown Hives / Verified 03/06/21 01:53 Red Face Aihtntx-Uiz-Fgj Reductase AdvReac Unknown Muscle Verified 03/06/21 01:53 Inhibitor Spasms Review of Systems Review of Systems: All systems reviewed & are unremarkable except as noted in HPI and below Constitutional: Constitutional: Denies chills, Denies fever(s) and Denies weakness Eyes: Eyes: Denies change in vision and Denies photophobia ENT: Denies vertigo, Denies nasal congestion and Denies sore throat Cardiovascular: Cardiovascular: Denies chest pain and Denies radiating jaw, neck or arm pain Respiratory: Respiratory: Denies cough and Denies dyspnea Neurologic: Denies confusion, Denies syncope, Reports headache(s), Denies focal weakness and Denies numbness PMF Past Medical History Medical History (Updated 03/06/21 @ 06:53 by Juan Dupree MD) Abnormality of gait CAD (coronary artery disease) Multivessel coronary artery disease with stents to the proximal and distal LAD, mid right coronary artery July 2014 with prior catheterization performed [facility] January 2018 had severe diffuse 3 vessel coronary artery disease with multiple stenoses of about 70% and mid to distal LAD between previously placed proximal and distal stents, 50-70% diffuse stenosis of the circumflex with a proximal stenosis of: To and total occlusion of a the marginal branch and diffuse distal right coronary artery disease with occluded RPDA referred for CABG DM neuropathy with neurologic complication Dyslipidemia Eczema GERD (gastroesophageal reflux disease) Hypertension Morbid (severe) obesity due to excess calories Non-STEMI (non-ST elevated myocardial infarction) Most recent non-STEMI 12/11/2018 Obstructive sleep apnea Intolerant to CPAP Prostate cancer Renal cell carcinoma Vertigo Surgical History Surgical History (Updated 03/06/21 @ 04:45 by Liliana Martinez DO) Hx of tonsillectomy S/P CABG (coronary artery bypass graft) (04/2018) YESENIA to LAD, vein graft to OM, radial graft to RPDA, RCA was diffusely diseased and not a great target for bypass, LAD was also diffusely diseased Status post open reduction with internal fixation of fracture Of left leg at age 21 Stented coronary artery Family History Family History (Updated 03/06/21 @ 04:49 by Liliana Martinez DO) Father Family history of heart disease in male family member before age 55 Acute myocardial infarction Hypertension Mother Family history of heart disease in male family member eric
[2021-03-05 23:04] VITALS: BP 197/99; PULSE 73; RESP 17; O2SAT 97
[2021-03-06] VITALS (14 sets, daily range): BP systolic 134–199; BP diastolic 65–89; PULSE 60–77; RESP 16–20; TEMP 36.5–36.8; O2SAT 96–99; BMI 35.8
[2021-03-06] MEDS: RANOLAZINE 500 MG TAB.ER.12H PO ×2 (00:01→10:07)
--- NOTE | 2021-03-06 02:14 | PC.NURSE ---
This patient, Lopez Guzman, was admitted to IMU Room 206-02 on 03/06/21 at 0128. Patient/family oriented to hospital policies and general routines including ID bracelet, bed and alarms, visiting hours, pain management, procedures, bathroom and other care routines, personal items, smoking policy, room service/diet, and visiting hours. Information on how to activate the Rapid Response Team has been discussed. Patient/Family are encouraged to report perceived risks to care and to ask questions if they do not understand what they are told or what they should do.
--- NOTE | 2021-03-06 04:33 | PM.IMHP ---
H&P: HPI History of Present Illness Date/Time: 03/06/21 04:33 Chief Complaint: Sudden severe headache and neck pain Narrative: 75-year-old male with a past medical history of coronary artery disease, hyperlipidemia, hypertension, and insulin-dependent diabetes mellitus who presented to the ER after having sudden onset of headache and neck pain. The patient reports that he had been on the toilet straining to have a bowel movement. When he began having mid scapular back pain that radiated up into his neck into the base of his skull. He reports that the pain was burning in nature. He reported that he felt the back of his neck and felt like it was knotted like a muscle spasm. Was a costa of pain. The pain was a 8/10 at its worst. His pain improved values in the ER but did not resolve until he started to fall asleep last night. When he arrived to the ER his blood pressures were elevated as high as 203/92. He had not yet received his home antihypertensive prior to onset of symptoms. He has been into the ER multiple times over the last couple of years due to episodes of hypertension. Usually he received p.r.n. antihypertensives in his blood pressure returns to normal. When he presented to the ER today he only got his home meds and his blood pressure still returned to normal. His blood pressure did spike 1 more time once he arrived to the IMU but this occurred after he had exerted himself going to the bathroom. He reports that he usually cannot walk from his bed to the other room without shortness of breath this is been his baseline for years with his known coronary artery disease. He denies any cough or congestion. He has not had any orthopnea or paroxysmal nocturnal dyspnea. He is currently undergoing radiation treatment for prostate cancer. He reports that he received radiation treatments 5 days a week. He has not noticed any dysuria or hematuria. He has been having difficulty starting and stopping his urinary stream. He he does not feel like he empties his bladder completely. He reports that after he receives Lasix in the morning he usually pees a total of 2 L. but it takes him several attempts at urinating to get that urine output. His prostate cancer is managed by Dr. Castano. He has been on radiation treatments since the 23 of January. Initially when the patient woke up he would start out answering questions appropriately but in the middle of a sentence would state nonsensical facts. And then asked orientation questions and after that orientation questions the patient proceeded to answer the remainder of questions appropriately. He did still have 2 other episodes of word substitution but he states that this is not unusual for him, he reports occasional difficulty with word finding. He denies a history of stroke. Review of Systems Review of Systems: Narrative: 12 systems were reviewed with pertinent positives and negatives per HPI. Except as documented in the HPI, all other systems were reviewed and are negative. [facility], LAT[facility] Past Medical History Medical History (Updated 03/06/21 @ 05:00 by Liliana Martinez, ) Abnormality of gait CAD (coronary artery disease) Multivessel coronary artery disease with stents to the proximal and distal LAD, mid right coronary artery July 2014 with prior catheterization performed [facility] January 2018 had severe diffuse 3 vessel coronary artery disease with multiple stenoses of about 70% and mid to distal LAD between previously placed proximal and distal stents, 50-70% diffuse stenosis of the circumflex with a proximal stenosis of: To and total occlusion of a the marginal branch and diffuse distal right coronary artery disease with occluded RPDA referred for CABG DM neuropathy with neurologic complication Dyslipidemia Eczema GERD (gastroesophageal reflux disease) Hypertension Morbid (severe) obesity due to excess calories Non-STEMI (non-ST elevated myocardial infarction) Most recent non-STEMI 12/11/2018 O
--- NOTE | 2021-03-06 09:43 | WPDNEURCNPN ---
Assessment and Plan Assessment and plan (1) Headache: Code(s): R51.9 - Headache, unspecified Status: Acute Additional Plan intermittent hypertension with documented right carotid bulb 45% stenosis left carotid bulb 30% stenosis but otherwise the circulation without any significant stenosis patient will need the regular control of the hypertension and the symptomatology is related to the straining to use the restroom obviously aneurysm has been ruled out and there is no significant stenosis to consider any intervention Consult date: 03/06/21 Time Seen: 09:30 HPI: Lopez Guzman is a 75 year old male admitted to the hospital for the complaints of severe headaches and neck pain in addition to the ongoing history of 1. Hyperlipidemia 2. Coronary artery disease 3. Hypertension 4. Insulin-dependent diabetes mellitus reportedly he was on the toilet straining to have BM when he became having mild scapular back pain radiating into his neck and into the base of his skull pain was described as burning in nature and he also complained of knotted like feeling in the muscle pain was 8/10 at its worst by the time he came to the emergency room the pain was improved his blood pressure was noted lead 203/92 though he had not received antihypertensive medication what he had been taking at home he has been to the ER several times in the past for the episodes of hypertension and received epi p.r.n. antihypertensive the usually cannot walk from his bed to the other room without shortness of breath and has underlying known coronary artery disease without any cough or congestion or orthopnea or paroxysmal nocturnal dyspnea he has recently undergoing radiation treatment for prostate cancer and received the last treatment about 5 days ago complained of no dysuria or hematuria toe has difficulties in urination with hesitancy he is being followed by Dr. Rodriguez for the carcinoma of the prostate. Pertinent investigation this time includes the chemistry with blood sugar of 144 normal CBC with hemoglobin of 11.7 and platelet count of 171 Review of Systems Review of Systems: All systems reviewed & are unremarkable except as noted in HPI and below PMFSH Past Medical History Medical History Abnormality of gait CAD (coronary artery disease) Multivessel coronary artery disease with stents to the proximal and distal LAD, mid right coronary artery July 2014 with prior catheterization performed [facility] January 2018 had severe diffuse 3 vessel coronary artery disease with multiple stenoses of about 70% and mid to distal LAD between previously placed proximal and distal stents, 50-70% diffuse stenosis of the circumflex with a proximal stenosis of: To and total occlusion of a the marginal branch and diffuse distal right coronary artery disease with occluded RPDA referred for CABG DM neuropathy with neurologic complication Dyslipidemia Eczema GERD (gastroesophageal reflux disease) Hypertension Morbid (severe) obesity due to excess calories Non-STEMI (non-ST elevated myocardial infarction) Most recent non-STEMI 12/11/2018 Obstructive sleep apnea Intolerant to CPAP Prostate cancer Renal cell carcinoma Vertigo Surgical History Surgical History Hx of tonsillectomy S/P CABG (coronary artery bypass graft) (04/2018) YESENIA to LAD, vein graft to OM, radial graft to RPDA, RCA was diffusely diseased and not a great target for bypass, LAD was also diffusely diseased Status post open reduction with internal fixation of fracture Of left leg at age 21 Stented coronary artery Family History Family History Father Family history of heart disease in male family member before age 55 Acute myocardial infarction Hypertension Mother Family history of heart disease in male family member before age 55 Acute mary grace
[2021-03-06] MEDS: PANTOPRAZOLE 40 MG TABLET PO (10:06)
[2021-03-06] MEDS: ISOSORBIDE DINITRATE 10 MG TABLET 30 MG PO ×3 (10:06→13:05)
[2021-03-06] MEDS: carvediloL 25 MG TABLET PO (10:06)
[2021-03-06] MEDS: PRASUGREL HCL 10 MG TABLET PO (10:06)
[2021-03-06] MEDS: polyethylene glycoL 3350 17 GM POWD.PACK PO (10:06)
[2021-03-06] MEDS: FUROSEMIDE 40 MG TABLET PO (10:06)
[2021-03-06] MEDS: LOSARTAN POTASSIUM 12.5 MG TABLET PO (10:07)
[2021-03-06] MEDS: INSULIN GLARGINE (*BKC) 100 UNITS/ML 40 UNITS SUB-Q (10:07)
[2021-03-06] MEDS: ALPRAZolam (*CRX) 0.5 MG TABLET PO (13:05)
[2021-03-06] MEDS: INSULIN ASPART (*BKC) 100 UNITS/ML SUB-Q (13:07)
--- NOTE | 2021-03-06 14:51 | PM.DS ---
DS: Admitting Diagnosis Admitting Diagnosis Admitting Diagnosis: (1) Hypertensive urgency: Code(s): I16.0 - Hypertensive urgency Status: Acute (2) Headache: Qualifiers: Headache chronicity pattern: acute headache Headache type: unspecified Intractability: not intractable Qualified Code(s): R51.9 - Headache, unspecified Code(s): R51.9 - Headache, unspecified Status: Acute (3) Intracranial atherosclerosis: Code(s): I67.2 - Cerebral atherosclerosis Status: Acute DS: Discharge Diagnosis Discharge Diagnosis (1) Hypertensive urgency: Code(s): I16.0 - Hypertensive urgency Status: Acute (2) Headache: Qualifiers: Headache type: unspecified Headache chronicity pattern: acute headache Intractability: not intractable Qualified Code(s): R51.9 - Headache, unspecified Code(s): R51.9 - Headache, unspecified Status: Acute (3) Intracranial atherosclerosis: Code(s): I67.2 - Cerebral atherosclerosis Status: Acute DS: Summary Hospital Course Reason for hospitalization: Shooting pain down his neck Hospital Course: Chief Complaint: Sudden severe headache and neck pain Narrative: 75-year-old male with a past medical history of coronary artery disease, hyperlipidemia, hypertension, and insulin-dependent diabetes mellitus who presented to the ER after having sudden onset of headache and neck pain. The patient reports that he had been on the toilet straining to have a bowel movement. When he began having mid scapular back pain that radiated up into his neck into the base of his skull. He reports that the pain was burning in nature. He reported that he felt the back of his neck and felt like it was knotted like a muscle spasm. Was a costa of pain. The pain was a 8/10 at its worst. His pain improved values in the ER but did not resolve until he started to fall asleep last night. When he arrived to the ER his blood pressures were elevated as high as 203/92. He had not yet received his home antihypertensive prior to onset of symptoms. He has been into the ER multiple times over the last couple of years due to episodes of hypertension. Usually he received p.r.n. antihypertensives in his blood pressure returns to normal. When he presented to the ER today he only got his home meds and his blood pressure still returned to normal. His blood pressure did spike 1 more time once he arrived to the IMU but this occurred after he had exerted himself going to the bathroom. He reports that he usually cannot walk from his bed to the other room without shortness of breath this is been his baseline for years with his known coronary artery disease. He denies any cough or congestion. He has not had any orthopnea or paroxysmal nocturnal dyspnea. He is currently undergoing radiation treatment for prostate cancer. He reports that he received radiation treatments 5 days a week. He has not noticed any dysuria or hematuria. He has been having difficulty starting and stopping his urinary stream. He he does not feel like he empties his bladder completely. He reports that after he receives Lasix in the morning he usually pees a total of 2 L. but it takes him several attempts at urinating to get that urine output. His prostate cancer is managed by Dr. Castano. He has been on radiation treatments since the 23 of January. Initially when the patient woke up he would start out answering questions appropriately but in the middle of a sentence would state nonsensical facts. And then asked orientation questions and after that orientation questions the patient proceeded to answer the remainder of questions appropriately. He did still have 2 other episodes of word substitution but he states that this is not unusual for him, he reports occasional difficulty with word finding. He denies a history of stroke. Patient was able to have his blood pressure well controlled once initiated on his home meds
== END 2021-03-06 16:00 | disposition home or self-care (01) ==
LOC: ANHED 18:59 → ANHIMU 03-06 06:13
PROVIDERS: Admitting Provider Internal Medicine; Emergency Provider Emergency Medicine; PCP Family Medicine; Visit Provider Internal Medicine
DX: I16.0 Hypertensive urgency (principal); R51.9 Headache, unspecified; I67.2 Cerebral atherosclerosis; M54.2 Cervicalgia; I25.10 Atherosclerotic heart disease of native coronary artery without angina pectoris; E78.5 Hyperlipidemia, unspecified; E11.9 Type 2 diabetes mellitus without complications; I10 Essential (primary) hypertension; R06.02 Shortness of breath; C61 Malignant neoplasm of prostate; I65.01 Occlusion and stenosis of right vertebral artery; Z79.4 Long term (current) use of insulin
CPT/HCPCS: 36415; 70496; 70498; 70544; 70553; 80048; 85025; 85610; 85730; 99285; A9270; A9577; G0378; J1815; Q9967

== ENCOUNTER 2021-04-22 10:48 | Emergency (ER) | payer BC, SELFPAY ==
--- NOTE | ~2021-04-22 | US_ITS ---
EXAMINATION: US venous doppler [facility] DATE: 04/22/2021 13:03 INDICATION: Bilateral lower limb swelling TECHNIQUE: Crandall scale images without and with compression and Doppler images of the bilateral lower e xtremity veins were obtained. COMPARISON: 09/03/2010 FINDINGS: The right common femoral vein, profunda femoral vein, femoral vein, popliteal vein, peroneal trunk, a nd posterior tibial veins are patent. The left common femoral vein, profunda femoral vein, femoral vein, popliteal vein, peroneal trunk, po sterior tibial veins and greater saphenous vein are patent. IMPRESSION: 1. Patent bilateral lower extremity veins. No evidence of deep venous thrombosis. Reviewed, dictated and finalized at location A. IMPRESSION: 1. Patent bilateral lower extremity veins. No evidence of deep venous thrombosi s.
--- NOTE | ~2021-04-22 | XR_ITS ---
EXAMINATION: XR chest 2V DATE: 04/22/2021 11:12 INDICATION: Shortness of breath TECHNIQUE: AP and lateral views of the chest are obtained. COMPARISON: 10/18/2020 FINDINGS: The lungs are free of acute opacities. There is chronic atelectasis or scarring of the left lung base. There is no pleural effusion or pneumothorax. The heart size is upper limits of normal fo r technique. Median sternotomy wires and mediastinal surgical clips are seen, likely from prior coron vandana artery bypass grafting. There is mild thoracic spondylosis. IMPRESSION: 1. No acute cardiopulmonary abnormality. Reviewed, dictated and finalized at location A.
--- NOTE | 2021-04-22 10:50 | ECG_ITS ---
Measurements Intervals [place] Rate: 62 P: 49 NM: 197 QRS: -42 QRSD: 149 T: 107 QT: 478 QTc: 487 Interpretive Statements SINUS RHYTHM LEFT AXIS DEVIATION IVCD, CONSIDER ATYPICAL LBBB BASELINE ARTIFACT- I, II, III, AVR, AVL, AVF, V1-V6 ABNORMAL ECG Electronically Signed On 04-22-2021 12:40:49 CDT by Tra Guillaume D.O.
[2021-04-22 10:52] VITALS: BP 131/68; PULSE 64; RESP 21; TEMP 36.6; O2SAT 97
[2021-04-22 11:13] LABS: Basophils Percent Auto 0.3 % (0.2-1.2); Eosinophils Absolute Auto 0.1 K/mm3 (0-0.3); Eosinophils Percent Auto 2.3 % (0-4.4); Hematocrit 31.9 % (42.0-52.0); Hemoglobin 10.6 g/dL (14.0-18.0); Immature Granulocyte Absolute 0.01 K/mm3 (0.00-0.031); Immature Granulocyte Percent A 0.3 % (0-0.5); Lymphocytes Percent Auto 7.8 % (18.3-44.2); Mean Corpuscular HGB Conc 33.2 g/dl (32-36); Mean Corpuscular Hemoglobin 30.6 pg (26-34); Mean Corpuscular Volume 92.2 fl (80-100); Mean Platelet Volume 8.9 fl (7.4-10.4); Monocytes Absolute Auto 0.5 K/mm3 (0.1-0.6); Monocytes Percent Auto 11.7 % (2.6-8.5); Neutrophils Percent Auto 77.6 % (45.5-73.1); Platelet Count Result 135 k/mm3 (150-375); Red Blood Count 3.46 M/mm3 (4.6-6.20); Red Cell Distribution Width 14.4 % (11.5-14.5); White Blood Count 3.9 K/mm3 (4.5-10.0)
--- NOTE | 2021-04-22 11:17 | ED.SOB ---
HPI - SOB/Dyspnea General Chief Complaint: Shortness of Breath/Dyspnea Stated Complaint: SOB Time Seen by Provider: 04/22/21 11:17 History of Present Illness HPI Narrative: 75 yo male w/ h/o CHF, HTN, DM presents to the ED for SOB. He has had increased SOB since last night. This has been preventing him from sleeping. He is not able to lay flat at baseline. He has noted increased BLE swelling for the past few days. He first noticed this increasing when he finished radiation treatment for prostate cancer. No pain, fever, weakness. Related Data Home Medications Medication Instructions Recorded Confirmed acetaminophen 325 mg tablet 325 mg PO Q6H PRN 09/07/19 03/06/21 clobetasol 1 applic TOPICAL DAILY PRN 12/15/20 03/06/21 losartan 12.5 mg PO BID 12/15/20 03/06/21 nystatin 1 applic TOPICAL BID PRN 12/15/20 03/06/21 ranolazine 500 mg PO Q12H 12/15/20 03/06/21 trazodone 50 mg PO PRN PRN 12/15/20 03/06/21 Pepto-Bismol 30 ml PO PRN 03/06/21 03/06/21 psyllium husk [Metamucil] 0.8 g PO HS PRN 03/06/21 03/06/21 Allergies Allergy/AdvReac Type Severity Reaction Status Date / Time Penicillins Allergy Severe Anaphylaxis Verified 03/06/21 01:53 liraglutide Allergy Unknown Hives / Verified 03/06/21 01:53 Red Face Busuqdr-[id number]-Agq Reductase AdvReac Unknown Muscle Verified 03/06/21 01:53 Inhibitor Spasms Review of Systems Review of Systems: All systems reviewed & are unremarkable except as noted in HPI and below Constitutional: Constitutional: Denies fever(s) Cardiovascular: Cardiovascular: Denies chest pain Respiratory: Respiratory: Denies dyspnea Gastrointestinal: Gastrointestinal: Denies abdominal pain, Denies nausea and Denies vomiting Genitourinary: Genitourinary: Reports no additional male genitourinary complaints Neurologic: Denies numbness and Denies weakness [facility] Past Medical History Medical History Abnormality of gait CAD (coronary artery disease) Multivessel coronary artery disease with stents to the proximal and distal LAD, mid right coronary artery July 2014 with prior catheterization performed [facility] January 2018 had severe diffuse 3 vessel coronary artery disease with multiple stenoses of about 70% and mid to distal LAD between previously placed proximal and distal stents, 50-70% diffuse stenosis of the circumflex with a proximal stenosis of: To and total occlusion of a the marginal branch and diffuse distal right coronary artery disease with occluded RPDA referred for CABG DM neuropathy with neurologic complication Dyslipidemia Eczema GERD (gastroesophageal reflux disease) Hypertension Morbid (severe) obesity due to excess calories Non-STEMI (non-ST elevated myocardial infarction) Most recent non-STEMI 12/11/2018 Obstructive sleep apnea Intolerant to CPAP Prostate cancer Renal cell carcinoma [facility] Surgical History Surgical History Hx of tonsillectomy S/P CABG (coronary artery bypass graft) (04/2018) YESENIA to LAD, vein graft to OM, radial graft to RPDA, RCA was diffusely diseased and not a great target for bypass, LAD was also diffusely diseased Status post open reduction with internal fixation of fracture Of left leg at age 21 Stented coronary artery Family History Family History Father Family history of heart disease in male family member before age 55 Acute myocardial infarction Hypertension Mother Family history of heart disease in male family member before age 55 Acute myocardial infarction Emphysema of lung Asthma Sibling Family history of heart disease in male family member before age 55 Acute myocardial infarction Hypertension Polycystic kidney disease Sibling Family history of heart disease in male family member before age 55 Acute myocardial infarction Breast cancer S
[2021-04-22 11:22] LABS: Anion Gap 7 mmol/L (8-16); Blood Urea Nitrogen 22 mg/dL (9-20); Calcium 9.3 mg/dL (8.4-10.2); Carbon Dioxide 32 mmol/L (22-30); Chloride 100 mmol/L (98-107); Estimated CRCL calculation 77 ml/min; Estimated Glomerular Filt Rate > 60; Glucose 157 mg/dL (65-110); INR 0.9; Potassium 4.3 mmol/L (3.4-5.0); Prothrombin Time 12.5 Seconds (11.1-14.7); Sodium 139 mmol/L (137-145)
[2021-04-22 11:23] LABS: Partial Thromboplastin Time 28.9 SECONDS (22.3-36.8)
[2021-04-22 11:34] LABS: NT Pro B Type Natriuretic Pept 1490 pg/mL (5-100); Troponin I 0.025 ng/mL (0.000-0.034)
[2021-04-22] MEDS: FUROSEMIDE INJ 40 MG/4 ML VIAL IV PUSH (12:29)
[2021-04-22 13:59] VITALS: BP 149/69; PULSE 55; RESP 18; O2SAT 98
== END 2021-04-22 14:00 | disposition home or self-care (01) ==
PROVIDERS: Emergency Provider Emergency Medicine; PCP Family Medicine
DX: I50.9 Heart failure, unspecified (principal); I11.0 Hypertensive heart disease with heart failure; I25.10 Atherosclerotic heart disease of native coronary artery without angina pectoris; E78.5 Hyperlipidemia, unspecified; K21.9 Gastro-esophageal reflux disease without esophagitis; I25.2 Old myocardial infarction; G47.33 Obstructive sleep apnea (adult) (pediatric); Z85.46 Personal history of malignant neoplasm of prostate; Z85.528 Personal history of other malignant neoplasm of kidney; E11.40 Type 2 diabetes mellitus with diabetic neuropathy, unspecified; Z79.4 Long term (current) use of insulin; R94.31 Abnormal electrocardiogram [ECG] [EKG]; Z95.1 Presence of aortocoronary bypass graft; Z95.5 Presence of coronary angioplasty implant and graft; E66.01 Morbid (severe) obesity due to excess calories; Z68.41 Body mass index [BMI] 40.0-44.9, adult
CPT/HCPCS: 36415; 71046; 80048; 83880; 84484; 85025; 85610; 85730; 93005; 93970; 96374; 99284; J1940

== ENCOUNTER 2022-04-02 11:00 | Outpatient (CLI) | payer BC, SELFPAY ==
--- NOTE | ~2022-04-02 | XR_ITS ---
EXAMINATION: XR knee RT min 4V DATE: 04/02/2022 11:31 INDICATION: Right knee pain TECHNIQUE: Four views of the right knee were obtained. COMPARISON: 01/09/2010 FINDINGS: Alignment is normal. No fracture or osteochondral lesion. There is tricompartmental osteoar thritis characterized by marginal osteophytes end joint space narrowing. No joint effusion/synovitis. Soft tissues are unremarkable. A chronic sclerotic lesion in the medial aspect of the distal femur is stable since 2009, consistent with benign finding. IMPRESSION: 1. Osteoarthritis without acute osseous abnormality. Reviewed, dictated and finalized at location A.
--- NOTE | ~2022-04-02 | XR_ITS ---
EXAMINATION: XR knee LT min 4V DATE: 04/02/2022 11:32 INDICATION: Left knee pain TECHNIQUE: Four views of the left knee were obtained. COMPARISON: 01/29/2019 FINDINGS: No acute fracture is identified. There is an old healed fracture of the distal femoral shaf t with chronic angulation at the fracture site. There is severe tricompartmental osteoarthritis. No j oint effusion/synovitis. Soft tissues are unremarkable. IMPRESSION: 1. Severe tricompartmental osteoarthritis and old healed fracture of the femur without acute osseous abnormality identified. Reviewed, dictated and finalized at location A.
== END 2022-04-02 11:01 | disposition home or self-care (01) ==
PROVIDERS: PCP Family Medicine; Visit Provider Nurse Practitioner Gerontology
DX: M17.0 Bilateral primary osteoarthritis of knee (principal); S80.00XA Contusion of unspecified knee, initial encounter
CPT/HCPCS: 73564

== ENCOUNTER 2022-05-20 23:56 | Emergency (ER) | payer BC, SELFPAY ==
--- NOTE | ~2022-05-20 | XR_ITS ---
EXAMINATION: XR chest 1V portable DATE: 05/21/2022 01:16 INDICATION: Chest pain TECHNIQUE: frontal view of the chest was obtained. COMPARISON: Chest radiograph dated 04/22/2021 and 10/18/2020 FINDINGS: Unchanged mild elevation of the left hemidiaphragm with chronic discoid atelectasis/scarring at the l ateral left lung base. No new airspace opacities, pulmonary edema, pleural effusion or pneumothorax. Borderline heart size accounting for AP technique. Median sternotomy wires and mediastinal surgical c lips are seen, likely from prior coronary artery bypass grafting. IMPRESSION: 1. Chronic atelectasis/scarring at the left lung base with unchanged mild elevation of left hemidiaph ragm. Reviewed, dictated and finalized at location A. IMPRESSION: 1. Chronic atelectasis/scarring at the left lung base with unchanged mild eleva tion of left hemidiaphragm.
[2022-05-21] VITALS (14 sets, daily range): BP systolic 150–163; BP diastolic 65–85; PULSE 61–82; RESP 14–21; TEMP 36.6; O2SAT 94–100
--- NOTE | 2022-05-21 00:36 | ECG_ITS ---
Measurements Intervals [place] Rate: 59 P: 50 IN: 202 QRS: -44 QRSD: 146 T: 85 QT: 462 QTc: 460 Interpretive Statements SINUS BRADYCARDIA WITH MARKED SINUS ARRHYTHMIA LEFT AXIS DEVIATION LEFT BUNDLE BRANCH BLOCK [120+ ms QRS DURATION, 80+ ms Q/S IN V1/V2, 85+ ms R IN I/aVL/V5/V6] ABNORMAL ECG COMPARED TO ECG 04/22/2021 10:58:47 SINUS BRADYCARDIA NOW PRESENT SINUS ARRHYTHMIA NOW PRESENT Electronically Signed On 05-21-2022 8:48:46 CDT by Juwan Brown M.D.
--- NOTE | 2022-05-21 00:37 | ED.ABDPAIN ---
HPI - Abdominal Pain General Chief Complaint: Abdominal Pain Stated Complaint: chest pain, back ache, indegestion Time Seen by Provider: 05/21/22 00:22 History of Present Illness HPI narrative: 76-year-old male presents emergency room secondary to epigastric abdominal pain. He states that happened a couple days ago. He finally was able to go to sleep and woke up and felt pretty good throughout the day began having some more discomfort this evening so he got concerned came to emergency room. It hurts in the epigastric and left upper quadrant area and goes all way through to the back. He concerned because a 1 to make sure it was not coming from his heart. Denies any known history of any cardiac disease. He does not have any exertional chest pain. No shortness of breath no radicular pain as well. 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 Patient had a history of renal cancer as well as prostate cancer. Within the last couple weeks he had an extensive series of CAT scans which showed no pathology at that time. Related Data Home Medications Medication Instructions Recorded Confirmed acetaminophen 325 mg tablet (Pain 325 mg PO Q6H PRN Pain 09/07/19 04/16/22 Reliever (acetaminophen)) clobetasol 0.05 % topical cream 1 applic topical DAILY PRN Itching 12/15/20 04/16/22 nystatin 100,000 unit/gram topical 1 applic topical BID PRN Skin 12/15/20 04/16/22 cream Irritation ranolazine 500 mg tablet,extended 500 mg PO Q12H 12/15/20 04/16/22 release,12 hr Pepto-Bismol 30 ml PO PRN 03/06/21 04/16/22 psyllium husk 0.4 gram capsule 0.8 g PO HS PRN Constipation 03/06/21 04/16/22 (Metamucil) evolocumab 140 mg/mL subcutaneous 140 mg subcut ONCE 05/07/21 04/16/22 pen injector (Aman Ryder) Allergies Allergy/AdvReac Type Severity Reaction Status Date / Time Penicillins Allergy Severe Anaphylaxis Verified 05/21/22 00:00 liraglutide Allergy Unknown Hives / Verified 05/21/22 00:00 Red Face [id number]-[id number]-[id number] Reductase AdvReac Unknown Muscle Verified 05/21/22 00:00 Inhibitor Spasms [Bvamahu-Ptv-Llz Reductase Inhibitor] Review of Systems Review of Systems: CONSTITUTIONAL: Denies fever, chills, or sweats. EYES: Denies visual changes, redness, or discharge. ENT: Denies rhinorrhea, congestion, sore throat, or otalgia. CARDIOVASCULAR: Denies chest pain, palpitations, or edema. RESPIRATORY: Denies cough or dyspnea. GASTROINTESTINAL: Epigastric and left quadrant abdominal pain with no associated nausea, vomiting, or diarrhea. GENITOURINARY: Denies dysuria or hematuria. SKIN: Denies rash or itching. MUSCULOSKELETAL: Denies back pain, joint pain, or myalgia. NEUROLOGIC: Denies headache, numbness, or weakness. PSYCHIATRIC: Denies anxiety or depression. [facility] Past Medical History Medical History Abnormality of gait CAD (coronary artery disease) Multivessel coronary artery disease with stents to the proximal and distal LAD, mid right coronary artery July 2014 with prior catheterization performed [facility] January 2018 had severe diffuse 3 vessel coronary artery disease with multiple stenoses of about 70% and mid to distal LAD between previously placed proximal and distal stents, 50-70% diffuse stenosis of the circumflex with a proximal stenosis of: To and total occlusion of a the marginal branch and diffuse distal right coronary artery disease with occluded RPDA referred for CABG 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
[2022-05-21 00:58] LABS: Basophils Percent Auto 0.4 % (0.2-1.2); Eosinophils Absolute Auto 0.1 K/mm3 (0-0.3); Eosinophils Percent Auto 2.6 % (0-4.4); Hematocrit 35.4 % (42.0-52.0); Hemoglobin 11.3 g/dL (14.0-18.0); Immature Granulocyte Absolute 0.01 K/mm3 (0.00-0.031); Immature Granulocyte Percent A 0.2 % (0-0.5); Lymphocytes Absolute Auto 0.59 K/mm3 (0.9-3.2); Lymphocytes Percent Auto 11.1 % (18.3-44.2); Mean Corpuscular HGB Conc 31.9 g/dl (32-36); Mean Corpuscular Hemoglobin 30.8 pg (26-34); Mean Corpuscular Volume 96.5 fl (80-100); Mean Platelet Volume 9.2 fl (7.4-10.4); Monocytes Absolute Auto 0.5 K/mm3 (0.1-0.6); Monocytes Percent Auto 8.5 % (2.6-8.5); Neutrophils Absolute Auto 4.1 K/mm3 (1.3-6.7); Neutrophils Percent Auto 77.2 % (45.5-73.1); Platelet Count Result 181 k/mm3 (150-375); Red Blood Count 3.67 M/mm3 (4.6-6.20); Red Cell Distribution Width 13.7 % (11.5-14.5); White Blood Count 5.3 K/mm3 (4.5-10.0)
[2022-05-21 01:09] LABS: Alanine Aminotransferase 28 U/L (6-50); Albumin Level 4.2 g/dL (3.5-5.1); Alkaline Phosphatase 246 U/L (38-126); Anion Gap 9 mmol/L (8-16); Aspartate Amino Transferase 41 U/L (17-59); Bilirubin,Total 0.7 mg/dL (0.2-1.3); Blood Urea Nitrogen 19 mg/dL (9-20); Calcium 9.5 mg/dL (8.4-10.2); Carbon Dioxide 33 mmol/L (22-30); Chloride 94 mmol/L (98-107); Estimated CRCL calculation 75 ml/min; Estimated Glomerular Filt Rate > 60; Glucose 126 mg/dL (65-110); Potassium 3.9 mmol/L (3.4-5.0); Sodium 136 mmol/L (137-145)
[2022-05-21 01:21] LABS: Troponin I 0.032 ng/mL (0.000-0.034)
== END 2022-05-21 02:40 | disposition home or self-care (01) ==
PROVIDERS: Emergency Provider Emergency Medicine; PCP Family Medicine
DX: K52.9 Noninfective gastroenteritis and colitis, unspecified (principal); R00.1 Bradycardia, unspecified; I25.10 Atherosclerotic heart disease of native coronary artery without angina pectoris; E78.5 Hyperlipidemia, unspecified; K21.9 Gastro-esophageal reflux disease without esophagitis; I10 Essential (primary) hypertension; I25.2 Old myocardial infarction
CPT/HCPCS: 36415; 71045; 80053; 84484; 85025; 93005; 99284

== ENCOUNTER 2022-12-20 09:52 | Emergency (ER) | payer BC, SELFPAY ==
[2022-12-20] VITALS (24 sets, daily range): BP systolic 156–196; BP diastolic 61–78; PULSE 61–76; RESP 13–24; TEMP 36.4; O2SAT 97–100
--- NOTE | ~2022-12-20 | CT_ITS ---
CT of the Abdomen and Pelvis: Indication: Abdominal pain Technique: 2.5 mm axial scans were obtained through the abdomen and pelvis following intravenous adm inistration of 100 cc of Omnipaque 350. Dose reduction technique was used on this scan by utilizing a utomated exposure control and iterative reconstruction technique. The dose-length product (DLP) was 1 684.71 mGy-cm. COMPARISON: 10/18/2020 Findings: Scans through the lung bases are unremarkable. The liver, spleen, gallbladder, adrenals and left kidney are within normal limits. 13 mm cystic mass present at the uncinate process of the pancreas. There is a 2.1 cm masslike density at the mid pole t he right kidney with surrounding fat proliferative change, suggestive of postablation change. Residua l/recurrent neoplasm cannot be excluded based on this examination lesion. There are atherosclerotic c alcifications of the aorta. No lymphadenopathy. No bowel obstruction or bowel wall thickening. There is no evidence to suggest acute appendicitis. Images through the pelvis were performed. Urinary bladder unremarkable. Prostate gland is mildly prom inent with fiducial markers present. No ascites. Impression: 2.1 cm masslike lesion at the midpole right kidney with surrounding fatty proliferative change. This could reflect postablative change of previously diagnosed renal cell carcinoma from 2020, however rec urrent/residual neoplasm is not excluded based on this examination in isolation. Comparison with any other post therapy exams would be useful to assess for any interval change. Consider pre and postcont rast MR to assess for enhancing soft tissue masses indicated. 13 mm cystic mass at the uncinate process of the pancreas, abdominal clinical significance. Reviewed, dictated and finalized at [facility]. Impression: 2.1 cm masslike lesion at the midpole right kidney with surrounding fatty proli ferative change. This could reflect postablative change of previously diagnosed renal cell carcinoma from 2020, however recurrent/residual neoplasm is not exc luded based on this examination in isolation. Comparison with any other post th erapy exams would be useful to assess for any interval change. Consider pre and postcontrast MR to assess for enhancing soft tissue masses indicated. 13 mm cystic mass at the uncinate process of the pancreas, abdominal clinical s ignificance.
[2022-12-20 10:34] LABS: Basophils Percent Auto 0.4 % (0.2-1.2); Eosinophils Absolute Auto 0.1 K/mm3 (0-0.3); Eosinophils Percent Auto 1.7 % (0-4.4); Hematocrit 29.3 % (42.0-52.0); Hemoglobin 9.7 g/dL (14.0-18.0); Immature Granulocyte Absolute 0.03 K/mm3 (0.00-0.031); Immature Granulocyte Percent A 0.6 % (0-0.5); Lymphocytes Absolute Auto 0.45 K/mm3 (0.9-3.2); Lymphocytes Percent Auto 9.4 % (18.3-44.2); Mean Corpuscular HGB Conc 33.1 g/dl (32-36); Mean Corpuscular Hemoglobin 31.3 pg (26-34); Mean Corpuscular Volume 94.5 fl (80-100); Mean Platelet Volume 8.6 fl (7.4-10.4); Monocytes Absolute Auto 0.5 K/mm3 (0.1-0.6); Monocytes Percent Auto 10.4 % (2.6-8.5); Neutrophils Absolute Auto 3.7 K/mm3 (1.3-6.7); Neutrophils Percent Auto 77.5 % (45.5-73.1); Platelet Count Result 280 k/mm3 (150-375); Red Cell Distribution Width 15.2 % (11.5-14.5); White Blood Count 4.8 K/mm3 (4.5-10.0)
[2022-12-20 10:43] LABS: Alanine Aminotransferase 22 U/L (6-50); Alkaline Phosphatase 322 U/L (38-126); Anion Gap 8 mmol/L (8-16); Aspartate Amino Transferase 46 U/L (17-59); Bilirubin,Total 1.4 mg/dL (0.2-1.3); Blood Urea Nitrogen 16 mg/dL (9-20); Calcium 8.8 mg/dL (8.4-10.2); Carbon Dioxide 30 mmol/L (22-30); Chloride 94 mmol/L (98-107); Estimated CRCL calculation 69 ml/min; Estimated Glomerular Filt Rate 59; Glucose 97 mg/dL (65-110); Lactic Acid Reflex 0.9 mmol/L (0.7-2.0); Lipase 19 U/L (23-300); Potassium 4.3 mmol/L (3.4-5.0); Sodium 132 mmol/L (137-145)
[2022-12-20 11:04] LABS: Appearance Urine Clear (Clear); Bacteria Urine None Seen /hpf; Bilirubin Urine Negative (Negative); Blood Urine Negative (Negative); Color Urine Yellow (Yellow); Glucose Urine UA Negative (Negative); Ketones Urine Negative (Negative); Leukocyte Esterase Ur Negative LEU/UL (Negative); Nitrate Urine Negative (Negative); Non Pathogenic Casts 0-2; Protein Urine Trace mg/dL (Negative); RBC Urine 0-2 /hpf (0-2); Specific Grav Ur 1.012 (1.001-1.035); Squamous Epithelial Cell Urine None seen /hpf (Few); WBC Urine 0-5 /hpf; pH Urine 7.5 (5.0-9.0)
[2022-12-20] MEDS: SODIUM CHLORIDE 0.9% IV 1,000 ML 999 ML IV CONT (11:13)
[2022-12-20 11:17] LABS: Add Urine Microscopic? YES
[2022-12-20 12:43] LABS: Influenza A QL RT-PCR Negative (Negative); Influenza B QL RT-PCR Negative (Negative); SARS-CoV-2 RNA PCR Negative
[2022-12-20] MEDS: ONDANSETRON INJ 4 MG/2 ML VIAL IV PUSH (13:01)
--- NOTE | 2022-12-20 14:27 | ED.GENADULT ---
HPI - General Adult General Chief complaint: Nausea/Vomiting/Diarrhea Stated complaint: N/V Source: RN notes reviewed History of Present Illness HPI narrative: Patient presents emergency department from [facility] via EMS for nausea and vomiting. Patient states that he recently had knee surgery and has been constipated since that time states he had a small bowel movement last night but is concerned he is constipated. He states he has had nausea and belching today with an episode of emesis. States that the facility did send him over for further evaluation as there is concern of possible bowel obstruction. Patient denies having any abdominal pain. He denies any fevers or chills chest pain or shortness of breath he states he is not currently on any stool softeners Related Data Home Medications Medication Instructions Recorded Confirmed acetaminophen 325 mg tablet (Pain 325 mg PO Q6H PRN Pain 09/07/19 12/18/22 Reliever (acetaminophen)) clobetasol 0.05 % topical cream 1 applic topical DAILY PRN Itching 12/15/20 12/18/22 Pepto-Bismol 30 ml PO PRN 03/06/21 12/18/22 psyllium husk 0.4 gram capsule 0.8 g PO HS PRN Constipation 03/06/21 12/18/22 (Metamucil) evolocumab 140 mg/mL subcutaneous 140 mg subcut ONCE 05/07/21 12/18/22 pen injector (Aman Ryder) Allergies Allergy/AdvReac Type Severity Reaction Status Date / Time Penicillins Allergy Severe Anaphylaxis Verified 11/29/22 10:33 liraglutide Allergy Unknown Hives / Verified 11/29/22 10:33 Red Face Qutsfia-MTO-NiX Reductase AdvReac Unknown Muscle Verified 11/29/22 10:33 Inhibitor Spasms [Mlndebo-Wra-Ixw Reductase Inhibitor] Review of Systems Review of Systems: Gen.: Denies fevers or chills ENT: Denies congestion Respiratory: Denies shortness of breath or cough CV: Denies chest pain or palpitations GI: See HPI denies burning, urgency, frequency or hematuria Musculoskeletal: Denies back pain or muscle pain Neuro: Denies numbness, tingling, weakness or focal weakness Skin: Denies rash Except as documented, all other systems reviewed and negative PMFSH Past Medical History Medical History Abnormality of gait CAD (coronary artery disease) Multivessel coronary artery disease with stents to the proximal and distal LAD, mid right coronary artery July 2014 with prior catheterization performed [facility] January 2018 had severe diffuse 3 vessel coronary artery disease with multiple stenoses of about 70% and mid to distal LAD between previously placed proximal and distal stents, 50-70% diffuse stenosis of the circumflex with a proximal stenosis of: To and total occlusion of a the marginal branch and diffuse distal right coronary artery disease with occluded RPDA referred for CABG 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ory Hx of tonsillectomy S/P CABG (coronary artery bypass graft) (04/2018) YESENIA to LAD, vein graft to OM, radial graft to RPDA, RCA was diffusely diseased and not a great target for bypass, LAD was also diffusely diseased Status post open reduction with internal fixation of fracture Of left leg at age 21 Stented coronary artery Family History Family History Father Family history of heart disease in male family member before age 55 Acute myocardial infarction Hypertension Mother Family history of heart disease in male family member before age 55 Acute myocardial infarction Emphysema of tim
[2022-12-20 14:32] LABS: Glucose Point of Care 85 mg/dl (65-105)
--- NOTE | 2022-12-20 14:58 | PC.NURSE ---
puja yanez notified stephan herman for residential return to [facility]
== END 2022-12-20 17:24 | disposition home or self-care (01) ==
PROVIDERS: Emergency Provider Emergency Medicine; PCP Family Medicine
DX: R11.2 Nausea with vomiting, unspecified (principal); Z20.822 Contact with and (suspected) exposure to COVID-19; I25.10 Atherosclerotic heart disease of native coronary artery without angina pectoris; E11.40 Type 2 diabetes mellitus with diabetic neuropathy, unspecified; E11.49 Type 2 diabetes mellitus with other diabetic neurological complication; E78.5 Hyperlipidemia, unspecified; I10 Essential (primary) hypertension; I25.2 Old myocardial infarction; E66.01 Morbid (severe) obesity due to excess calories; Z68.41 Body mass index [BMI] 40.0-44.9, adult; G47.33 Obstructive sleep apnea (adult) (pediatric); K21.9 Gastro-esophageal reflux disease without esophagitis; Z85.46 Personal history of malignant neoplasm of prostate; Z85.528 Personal history of other malignant neoplasm of kidney; Z95.5 Presence of coronary angioplasty implant and graft; Z95.1 Presence of aortocoronary bypass graft; Z79.4 Long term (current) use of insulin; N28.9 Disorder of kidney and ureter, unspecified; K86.89 Other specified diseases of pancreas
CPT/HCPCS: 36415; 74177; 80053; 81001; 82948; 83605; 83690; 85025; 87636; 96361; 96374; 99284; J2405; J7030; Q9967

== ENCOUNTER 2023-01-09 14:32 | Outpatient (CLI) | payer BC, SELFPAY ==
--- NOTE | ~2023-01-09 | XR_ITS ---
XR abdomen/kub 1V DATE: 01/09/2023 14:54 INDICATION: Nausea and vomiting for one day TECHNIQUE: 2 supine AP views of the abdomen and pelvis COMPARISON: 12/20/2022 CT abdomen pelvis FINDINGS: There is no evidence of bowel obstruction. The psoas shadows are intact. No visceromegaly i s detected. Surgical clips at the prostate bed. Status post sternotomy. IMPRESSION: Nonspecific abdomen; no evidence of bowel obstruction Reviewed, dictated and finalized at [facility]. Reviewed, dictated and finalized at [facility].
== END 2023-01-09 14:33 | disposition home or self-care (01) ==
PROVIDERS: PCP Family Medicine; Visit Provider Physician Assistant
DX: R11.2 Nausea with vomiting, unspecified (principal)
CPT/HCPCS: 74018

== ENCOUNTER 2023-05-15 09:49 | Emergency (ER) | payer BC, SELFPAY ==
[2023-05-15] VITALS (13 sets, daily range): BP systolic 114–144; BP diastolic 54–80; PULSE 62–80; RESP 12–25; TEMP 36.6–36.7; O2SAT 94–100
--- NOTE | ~2023-05-15 | XR_ITS ---
Clinical Indication: CHF AP and lateral views of the chest: Comparison: 05/21/2022 Findings: Stable probable focal scarring at the left lung base. The lungs are otherwise clear, withou t evidence of focal consolidation or pleural effusion. Cardiomediastinal silhouette is stable, statu s post CABG. Bones and soft tissues are unremarkable. Impression: No acute pulmonary abnormality. Reviewed, dictated and finalized at location . Impression: No acute pulmonary abnormality.
--- NOTE | 2023-05-15 09:55 | ECG_ITS ---
Measurements Intervals [place] Rate: 63 P: [place]: 0 QRS: -37 QRSD: 141 T: 159 QT: 475 QTc: 487 Interpretive Statements UNCERTAIN REGULAR RHYTHM MARKED LEFT AXIS DEVIATION [QRS AXIS < -30] INTRAVENTRICULAR CONDUCTION DELAY [130+ ms QRS DURATION] ABNORMAL ECG COMPARED TO ECG 05/21/2022 01:20:34 INTRAVENTRICULAR CONDUCTION DELAY NOW PRESENT Electronically Signed On 05-15-2023 13:06:16 CDT by Juwan Brown M.D.
[2023-05-15 10:12] LABS: Basophils Percent Auto 0.9 % (0.2-1.2); Eosinophils Absolute Auto 0.1 K/mm3 (0-0.3); Eosinophils Percent Auto 4.1 % (0-4.4); Hematocrit 28.4 % (42.0-52.0); Hemoglobin 9.3 g/dL (14.0-18.0); Immature Granulocyte Absolute 0.02 K/mm3 (0.00-0.031); Immature Granulocyte Percent A 0.6 % (0-0.5); Lymphocytes Absolute Auto 0.45 K/mm3 (0.9-3.2); Lymphocytes Percent Auto 13.2 % (18.3-44.2); Mean Corpuscular HGB Conc 32.7 g/dl (32-36); Mean Corpuscular Hemoglobin 32.5 pg (26-34); Mean Corpuscular Volume 99.3 fl (80-100); Mean Platelet Volume 9.9 fl (7.4-10.4); Monocytes Absolute Auto 0.5 K/mm3 (0.1-0.6); Monocytes Percent Auto 15.8 % (2.6-8.5); Neutrophils Absolute Auto 2.2 K/mm3 (1.3-6.7); Neutrophils Percent Auto 65.4 % (45.5-73.1); Platelet Count Result 136 k/mm3 (150-375); Red Blood Count 2.86 M/mm3 (4.6-6.20); Red Cell Distribution Width 15.2 % (11.5-14.5); White Blood Count 3.4 K/mm3 (4.5-10.0)
[2023-05-15 10:22] LABS: Alanine Aminotransferase 23 U/L (6-50); Albumin Level 3.6 g/dL (3.5-5.1); Alkaline Phosphatase 187 U/L (38-126); Anion Gap 3 mmol/L (8-16); Aspartate Amino Transferase 46 U/L (17-59); Bilirubin,Total 1.7 mg/dL (0.2-1.3); Blood Urea Nitrogen 31 mg/dL (9-20); Calcium 8.7 mg/dL (8.4-10.2); Carbon Dioxide 27 mmol/L (22-30); Chloride 100 mmol/L (98-107); Estimated CRCL calculation 102 ml/min; Estimated Glomerular Filt Rate 49; Glucose 107 mg/dL (65-110); INR 1.2; Potassium 4.5 mmol/L (3.4-5.0); Prothrombin Time 15.5 Seconds (11.1-14.7); Sodium 130 mmol/L (137-145)
[2023-05-15 10:23] LABS: Partial Thromboplastin Time 32.9 SECONDS (22.3-36.8)
[2023-05-15 10:34] LABS: NT Pro B Type Natriuretic Pept 2530 pg/mL (19.9-100); Troponin I 0.018 ng/mL (0.000-0.034)
--- NOTE | 2023-05-15 12:02 | ED.GENADULT ---
HPI - General Adult General Chief complaint: Unspecified Stated complaint: fluid buildup Time Seen by Provider: 05/15/23 09:53 History of Present Illness HPI narrative: This is a 77-year-old male, past history of CHF and coronary artery disease, who presents to the emergency department complaining of bilateral lower extremity swelling. The patient states he was recently adjusted on his Lasix from a total of 120 mg daily to 40 mg a day due to kidney injury. He states his dose was increased to 40 mg twice daily yesterday. He take his first dose today. He denies chest pain or shortness of breath and has no other complaints. Related Data Home Medications Medication Instructions Recorded Confirmed acetaminophen 325 mg tablet (Pain 325 mg PO Q6H PRN Pain 09/07/19 05/15/23 Reliever (acetaminophen)) clobetasol 0.05 % topical cream 1 applic topical DAILY PRN Itching 12/15/20 05/12/23 psyllium husk 0.4 gram capsule 0.8 g PO HS PRN Constipation 03/06/21 05/12/23 (Metamucil) evolocumab 140 mg/mL subcutaneous 140 mg subcut ONCE 05/07/21 05/12/23 pen injector (Repatha SureClick) metolazone 2.5 mg tablet 2.5 mg PO DAILY PRN 12/24/22 05/12/23 furosemide 40 mg tablet (Lasix) 40 mg PO BID 05/08/23 05/15/23 isosorbide dinitrate 30 mg tablet See Rx Instructions .Route .COMPLEX 05/15/23 05/15/23 losartan 25 mg tablet 12.5 mg PO BID 05/15/23 05/15/23 omeprazole 40 mg capsule,delayed 40 mg PO DAILY 05/15/23 05/15/23 release prasugrel 10 mg tablet 10 mg 05/15/23 ranolazine 500 mg tablet,extended mg PO 05/15/23 release,12 hr Allergies Allergy/AdvReac Type Severity Reaction Status Date / Time Penicillins Allergy Severe Anaphylaxis Verified 05/15/23 10:13 liraglutide Allergy Unknown Hives / Verified 05/15/23 10:13 Red Face Xfhtdsj-UGU-UeH Reductase AdvReac Unknown Muscle Verified 05/15/23 10:13 Inhibitor Spasms [Gbfepry-Tle-Zzh Reductase Inhibitor] Review of Systems Review of Systems: CONSTITUTIONAL: Denies fever, chills, or sweats. CARDIOVASCULAR: Bilateral lower extremity edema denies chest pain, palpitations RESPIRATORY: Denies cough or dyspnea. GASTROINTESTINAL: Denies abdominal pain, nausea, vomiting, or diarrhea. GENITOURINARY: Denies dysuria or hematuria. SKIN: Denies rash or itching. MUSCULOSKELETAL: Denies back pain, joint pain, or myalgia. NEUROLOGIC: Denies headache, numbness, dizziness, or weakness. PSYCHIATRIC: Denies anxiety or depression. [facility] Past Medical History Medical History Abnormality of gait CAD (coronary artery disease) Multivessel coronary artery disease with stents to the proximal and distal LAD, mid right coronary artery July 2014 with prior catheterization performed [facility] January 2018 had severe diffuse 3 vessel coronary artery disease with multiple stenoses of about 70% and mid to distal LAD between previously placed proximal and distal stents, 50-70% diffuse stenosis of the circumflex with a proximal stenosis of: To and total occlusion of a the marginal branch and diffuse distal right coronary artery disease with occluded RPDA referred for CABG 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ory Hx of tonsillectomy S/P CABG (coronary artery bypass graft) (04/2018) YESENIA to LAD, vein graft to OM, radial graft to RPDA, RCA was diffusely diseased and not a great target for bypass, LAD was also diffusely diseased Status post open reduction with internal fixation of fracture Of left leg at age 21 Stented co
[2023-05-15] MEDS: FUROSEMIDE INJ 40 MG/4 ML VIAL 20 MG IV PUSH (12:05)
== END 2023-05-15 12:30 | disposition home or self-care (01) ==
PROVIDERS: Emergency Provider Preventive Medicine Aerospace Medicine; PCP Family Medicine
DX: I11.0 Hypertensive heart disease with heart failure (principal); I50.9 Heart failure, unspecified; R22.43 Localized swelling, mass and lump, lower limb, bilateral; I25.10 Atherosclerotic heart disease of native coronary artery without angina pectoris; E11.40 Type 2 diabetes mellitus with diabetic neuropathy, unspecified; I25.2 Old myocardial infarction; M17.9 Osteoarthritis of knee, unspecified; K21.9 Gastro-esophageal reflux disease without esophagitis; E66.01 Morbid (severe) obesity due to excess calories; Z68.45 Body mass index [BMI] 70 or greater, adult; G47.33 Obstructive sleep apnea (adult) (pediatric); Z95.1 Presence of aortocoronary bypass graft; Z95.5 Presence of coronary angioplasty implant and graft; Z85.528 Personal history of other malignant neoplasm of kidney; Z85.46 Personal history of malignant neoplasm of prostate; Z79.4 Long term (current) use of insulin
CPT/HCPCS: 36415; 71046; 80053; 83880; 84484; 85025; 85610; 85730; 93005; 96374; 99284; J1940

== ENCOUNTER 2023-05-18 16:59 | Inpatient (IN) | payer MEDICARE, BC, SELFPAY ==
[2023-05-18] VITALS (8 sets, daily range): BP systolic 117–148; BP diastolic 40–74; PULSE 60–75; RESP 14–22; TEMP 36.4–36.7; O2SAT 95–100; BMI 42.8
--- NOTE | ~2023-05-18 | CT_ITS ---
EXAMINATION: CTA chest PE protocol DATE: 05/18/2023 18:59 INDICATION: Dyspnea. TECHNIQUE: Computed tomography angiography (CTA) of the chest was performed with 100 mL Omnipaque-350 intravenous contrast timed to evaluate the pulmonary arteries. Coronal maximum intensity projection 3D-reconstructions were created by the technologist. Automated exposure control and iterative reconst ruction technique were employed. The dose-length product was 921.77 mGy-cm. COMPARISON: Chest CT 12/19/2014 FINDINGS: The lungs demonstrate mild atelectasis. A calcified left lung nodule and calcified left hil ar lymph nodes are consistent with old granulomatous disease. There is a trace right pleural effusion . Cardiomegaly is noted. There are coronary artery calcifications. There are changes of coronary hector ry bypass grafting. No pericardial effusion. There is no pulmonary embolus. There is a small volume o f perihepatic ascites. There are old healed left rib fractures. There is mild chronic anterior wedgin g of multiple vertebral bodies. There is mild thoracic spondylosis. IMPRESSION: 1. No pulmonary embolus. 2. Small volume of perihepatic ascites. Reviewed, dictated and finalized at location [facility].
--- NOTE | ~2023-05-18 | XR_ITS ---
EXAMINATION: XR chest 1V portable DATE: 05/18/2023 17:42 INDICATION: Dyspnea. TECHNIQUE: A single frontal view of the chest was obtained. COMPARISON: Chest 2 views 05/15/2023, CT abdomen and pelvis 12/20/2022 FINDINGS: There is mild atelectasis in left lower lung zone. No pleural effusion or pneumothorax. Car diomegaly is noted. Median sternotomy wires and mediastinal surgical clips are seen, likely from prio r coronary artery bypass grafting. IMPRESSION: 1. Mild atelectasis in left lower lung zone. 2. Cardiomegaly. Reviewed, dictated and finalized at location [facility].
--- NOTE | 2023-05-18 17:32 | ED.SOB ---
HPI - SOB/Dyspnea General Chief Complaint: Shortness of Breath/Dyspnea <Isabel Oates PA-C - Last Filed: 05/18/23 20:00> Stated Complaint: shortness of breath <Isabel Oates PA-C - Last Filed: 05/18/23 20:00> Time Seen by Provider: 05/18/23 17:09 <Isabel Oates PA-C - Last Filed: 05/18/23 20:00> History of Present Illness HPI Narrative: 77-year-old male with a history of anemia, insulin-dependent type 2 diabetes, chronic diastolic CHF, hypertension, CAD reports for evaluation for dyspnea and generalized fatigue x15 hours. Patient states the shortness of breath started at 2 AM and is worse when laying flat, improved when standing or sitting up with his feet hanging over the edge of the bed. Reports he took a nitroglycerin at 5 AM and again at 10 AM with improvement in symptoms. States since he took the nitro, he has developed a mild nonproductive cough. He denies chest pain, abdominal pain, palpitations, dysuria or hematuria, dizziness or lightheadedness, fever, calf pain. He is prescribed 40 mg of Lasix twice daily and states he has not missed any doses. His daily Lasix dose was recently reduced secondary to an AALIYAH. He came to the ED 3 days ago for CHF exacerbation, was given an IV dose of Lasix and advised to continue his Lasix regimen and follow-up with his stunt man. States he is scheduled to see his stunt man, Dr. Brown, in 3 days. Patient reports a recent weight gain of 26 pounds in the past month and increased bilateral lower extremity edema. He is able to ambulate with a walker. He does not wear oxygen at baseline and is currently satting 90% on room air. <Isabel Oates PA-C - Last Filed: 05/18/23 20:00> Related Data Home Medications: Home Medications Medication Instructions Recorded Confirmed acetaminophen 325 mg tablet (Pain 650 mg PO Q6H PRN Pain (Scale 09/07/19 05/18/23 Reliever (acetaminophen)) Score 1-3) clobetasol 0.05 % topical cream 1 applic topical DAILY PRN Itching 12/15/20 05/18/23 psyllium husk 0.4 gram capsule 0.8 g PO HS PRN Constipation 03/06/21 05/18/23 (Metamucil) evolocumab 140 mg/mL subcutaneous 140 mg subcut [id number] 05/07/21 05/18/23 pen injector (Aman Casianoick) furosemide 40 mg tablet (Lasix) 40 mg PO BID 05/08/23 05/18/23 isosorbide dinitrate 30 mg tablet See Rx Instructions .Route .COMPLEX 05/15/23 05/18/23 losartan 25 mg tablet 12.5 mg PO BID 05/15/23 05/18/23 omeprazole 40 mg capsule,delayed 40 mg PO DAILY 05/15/23 05/18/23 release prasugrel 10 mg tablet 10 mg PO DAILY 05/15/23 05/18/23 <Isabel Oates PA-C - Last Filed: 05/18/23 20:00> Allergies/Adverse Reactions: Allergies Allergy/AdvReac Type Severity Reaction Status Date / Time Penicillins Allergy Severe Anaphylaxis Verified 05/15/23 10:13 liraglutide Allergy Unknown Hives / Verified 05/15/23 10:13 Red Face Vdtptro-NLO-NfO Reductase AdvReac Unknown Muscle Verified 05/15/23 10:13 Inhibitor Spasms [Ikujcue-Tlg-Uge Reductase Inhibitor] <Isabel Oates PA-C - Last Filed: 05/18/23 20:00> Review of Systems Review of Systems: CONSTITUTIONAL: Denies fever, chills EYES: Denies visual changes, redness, or discharge. ENT: Denies rhinorrhea, congestion, sore throat, or otalgia. CARDIOVASCULAR: See HPI RESPIRATORY: See HPI GASTROINTESTINAL: Denies abdominal pain, nausea, vomiting, or diarrhea. GENITOURINARY: Denies dysuria or hematuria. SKIN: Denies rash or itching. MUSCULOSKELETAL: Denies back pain, joint pain, or myalgia. NEUROLOGIC: Denies headache, numbness, dizziness, or weakness. PSYCHIATRIC: Denies anxiety or depression. <Isabel Oates PA-C - Last Filed: 05/18/23 20:00> [facility] Past Medical History Medical History: Medical History (Updated 05/19/23 @ 02:35 by Yahaira Westfall MD) Abnormality of gait CAD (coronary artery disease) Multivessel coronary artery disease with stents to the proximal and distal LAD, mid right
[2023-05-18 17:39] LABS: Basophils Percent Auto 0.3 % (0.2-1.2); Eosinophils Absolute Auto 0.1 K/mm3 (0-0.3); Eosinophils Percent Auto 3.1 % (0-4.4); Hematocrit 27.6 % (42.0-52.0); Hemoglobin 9.2 g/dL (14.0-18.0); Immature Granulocyte Absolute 0.01 K/mm3 (0.00-0.031); Immature Granulocyte Percent A 0.3 % (0-0.5); Lymphocytes Absolute Auto 0.41 K/mm3 (0.9-3.2); Lymphocytes Percent Auto 11.6 % (18.3-44.2); Mean Corpuscular HGB Conc 33.3 g/dl (32-36); Mean Corpuscular Hemoglobin 32.6 pg (26-34); Mean Corpuscular Volume 97.9 fl (80-100); Mean Platelet Volume 9.6 fl (7.4-10.4); Monocytes Absolute Auto 0.5 K/mm3 (0.1-0.6); Monocytes Percent Auto 15.3 % (2.6-8.5); Neutrophils Absolute Auto 2.5 K/mm3 (1.3-6.7); Neutrophils Percent Auto 69.4 % (45.5-73.1); Platelet Count Result 138 k/mm3 (150-375); Red Blood Count 2.82 M/mm3 (4.6-6.20); White Blood Count 3.5 K/mm3 (4.5-10.0)
[2023-05-18 17:52] LABS: Alanine Aminotransferase 25 U/L (6-50); Albumin Level 3.7 g/dL (3.5-5.1); Alkaline Phosphatase 223 U/L (38-126); Anion Gap 7 mmol/L (8-16); Aspartate Amino Transferase 51 U/L (17-59); Bilirubin,Total 1.4 mg/dL (0.2-1.3); Blood Urea Nitrogen 30 mg/dL (9-20); Carbon Dioxide 28 mmol/L (22-30); Chloride 100 mmol/L (98-107); Estimated CRCL calculation 43 ml/min; Estimated Glomerular Filt Rate 45; Glucose 87 mg/dL (65-110); INR 1.2; Potassium 4.3 mmol/L (3.4-5.0); Prothrombin Time 16.1 Seconds (11.1-14.7); Sodium 135 mmol/L (137-145)
[2023-05-18 17:53] LABS: Partial Thromboplastin Time 36.2 SECONDS (22.3-36.8)
[2023-05-18 17:59] LABS: Appearance Urine Clear (Clear); Bacteria Urine None Seen /hpf; Bilirubin Urine 1+ (Negative); Blood Urine Negative (Negative); Color Urine Dark Yellow (Yellow); Glucose Urine UA Negative (Negative); Ketones Urine Trace mg/dL (Negative); Leukocyte Esterase Ur Trace LEU/UL (Negative); Nitrate Urine Negative (Negative); Non Pathogenic Casts 0-2; Protein Urine Negative (Negative); RBC Urine 0-2 /hpf (0-2); Specific Grav Ur 1.018 (1.001-1.035); Squamous Epithelial Cell Urine None seen /hpf (Few); WBC Urine 0-5 /hpf; pH Urine 5.5 (5.0-9.0)
[2023-05-18 18:01] LABS: Add Urine Microscopic? YES
[2023-05-18 18:03] LABS: NT Pro B Type Natriuretic Pept 3420 pg/mL (19.9-100); Troponin I 0.022 ng/mL (0.000-0.034)
[2023-05-18 18:07] LABS: D Dimer 2.61 ug/mL (<0.48)
[2023-05-18] MEDS: FUROSEMIDE INJ 40 MG/4 ML VIAL IV PUSH (19:18)
--- NOTE | 2023-05-18 19:30 | PM.IMHP ---
H&P: HPI History of Present Illness Date/Time: 05/18/23 19:30 Chief Complaint: Swelling. Narrative: THIS IS A 77-YEAR-OLD MALE WITH PAST MEDICAL HISTORY SIGNIFICANT FOR MORBID OBESITY, CONGESTIVE HEART FAILURE, INSULIN-DEPENDENT DIABETES MELLITUS, GERD, DEGENERATIVE JOINT DISEASE OF THE KNEES, DIABETIC PERIPHERAL NEUROPATHY, CORONARY ARTERY DISEASE, DYSLIPIDEMIA, OBSTRUCTIVE SLEEP APNEA, PROSTATE CANCER, RENAL CELL CARCINOMA. PATIENT PRESENTS TO THE EMERGENCY ROOM DUE TO BILATERAL LOWER EXTREMITY WORSENING EDEMA, WORSENING SHORTNESS OF BREATH, PATIENT DENIES ANY CHEST PAIN, NAUSEA, VOMITING, HAS HAD POOR APPETITE. UPON ARRIVAL TO MEDICAL FLOOR PATIENT HAD EPISODE OF HYPOGLYCEMIA WITH A BLOOD SUGAR IN THE 50S. PATIENT DENIES ANY FEVERS, RIGORS, CHILLS, COUGH, SPUTUM PRODUCTION. HAS HAD GENERALIZED WEAKNESS. PRELIMINARY WORKUP WAS SIGNIFICANT FOR A BRAIN NATRIURETIC PEPTIDE UPWARDS 3000, D-DIMER WAS 2.[address] A OF THE CHEST DID NOT SHOW ACUTE PULMONARY EMBOLUS. PATIENT IS BEEN ADMITTED FOR FURTHER EVALUATION MANAGEMENT AND TREATMENT. EXAMINATION: XR chest 1V portable DATE: 05/18/2023 17:42 INDICATION: Dyspnea. TECHNIQUE: A single frontal view of the chest was obtained. COMPARISON: Chest 2 views 05/15/2023, CT abdomen and pelvis 12/20/2022 FINDINGS: There is mild atelectasis in left lower lung zone. No pleural effusion or pneumothorax. Cardiomegaly is noted. Median sternotomy wires and mediastinal surgical clips are seen, likely from prior coronary artery bypass grafting. IMPRESSION: 1. Mild atelectasis in left lower lung zone. 2. Cardiomegaly. EXAMINATION: CTA chest PE protocol DATE: 05/18/2023 18:59 INDICATION: Dyspnea. TECHNIQUE: Computed tomography angiography (CTA) of the chest was performed with 100 mL Omnipaque-350 intravenous contrast timed to evaluate the pulmonary arteries. Coronal maximum intensity projection 3D-reconstructions were created by the technologist. Automated exposure control and iterative reconstruction technique were employed. The dose-length product was 921.77 mGy-cm. COMPARISON: Chest CT 12/19/2014 FINDINGS: The lungs demonstrate mild atelectasis. A calcified left lung nodule and calcified left hilar lymph nodes are consistent with old granulomatous disease. There is a trace right pleural effusion. Cardiomegaly is noted. There are coronary artery calcifications. There are changes of coronary artery bypass grafting. No pericardial effusion. There is no pulmonary embolus. There is a small volume of perihepatic ascites. There are old healed left rib fractures. There is mild chronic anterior wedging of multiple vertebral bodies. There is mild thoracic spondylosis. IMPRESSION: 1. No pulmonary embolus. 2. Small volume of perihepatic ascites. EKG Rate 63 MO 0 QRSd 137 QT 483 QTc 497 --[place]-- P QRS -36 T 166 UNCERTAIN REGULAR RHYTHM MARKED LEFT AXIS DEVIATION [QRS AXIS < -30] INTRAVENTRICULAR CONDUCTION DELAY [130+ ms QRS DURATION] LEFT VENTRICULAR HYPERTROPHY AND ST-T CHANGE [VOLTAGE CRITERIA PLUS ST/T ABNORMALITY] POSSIBLE ANTERIOR MYOCARDIAL INFARCTION [30 ms Q WAVE IN V3/V4, OR R < 0.2 mV IN V4], PROBABLY OLD COMPARED TO ECG 05/15/2023 10:00:03 LEFT VENTRICULAR HYPERTROPHY NOW PRESENT ST (T WAVE) DEVIATION NOW PRESENT Review of Systems Review of Systems: leg swelling. Constitutional: Constitutional: Denies chills, Denies fever(s), Denies frequent falls, Reports poor appetite and Reports weakness Eyes: Eyes: Denies change in vision ENT: Denies dysphagia, Denies vertigo, Denies dizziness and Denies odynophagia Cardiovascular: Cardiovascular: Denies chest pain, Reports leg edema, Denies palpitations and Reports dyspnea on exertion Respiratory: Respiratory: Denies chest congestion, Denies cough, Denies excessive phlegm production and Denies pain on inspiration Gastrointestinal: Gastrointestinal: Denies abdominal pain, Denies dyspepsia, Denies heartburn, Denies diarrhea, Denies nausea and Abad
--- NOTE | 2023-05-18 19:56 | ECG_ITS ---
Measurements Intervals [place] Rate: 63 P: ME: 0 QRS: -36 QRSD: 137 T: 166 QT: 483 QTc: 497 Interpretive Statements SINUS RHYTHM BASELINE ARTIFACT LEFT AXIS DEVIATION INTRAVENTRICULAR CONDUCTION DELAY LEFT VENTRICULAR HYPERTROPHY AND ST-T CHANGE [VOLTAGE CRITERIA PLUS ST/T ABNORMALITY] POSSIBLE ANTERIOR MYOCARDIAL INFARCTION, PROBABLY OLD ABNORMAL ECG COMPARED TO ECG 05/15/2023 10:00:03 NO SIGNIFICANT CHANGE Electronically Signed On 05-19-2023 15:32:47 CDT by Kishan Mendoza M.D.
--- NOTE | 2023-05-18 20:57 | ADMGEN ---
This patient, Lopez Guzman, was admitted to Medical Room 348-01. Patient/family oriented to hospital policies and general routines including ID bracelet, bed and alarms, visiting hours, pain management, procedures, bathroom and other care routines, personal items, smoking policy, room service/diet, and visiting hours. Information on how to activate the Rapid Response Team has been discussed. Patient/Family are encouraged to report perceived risks to care and to ask questions if they do not understand what they are told or what they should do.
[2023-05-18] MEDS: DEXTROSE 50% 25 GM/50 ML SYRINGE IV PUSH (21:42)
[2023-05-18 23:24] LABS: Glucose Point of Care 84 mg/dl (65-105)
[2023-05-19] VITALS (13 sets, daily range): BP systolic 132–145; BP diastolic 56–72; PULSE 60–88; RESP 18–20; TEMP 36.4–36.8; O2SAT 98–100
--- NOTE | 2023-05-19 00:48 | PC.NURSE ---
NOTIFIED PHARMACY THAT PATIENT WOULD LIKE TO HAVE HS DOSES RANEXA AND LOSARTAN. NOTED THAT HE WILL SEND THOSE UP.
[2023-05-19] MEDS: carvediloL 12.5 MG TABLET BY MOUTH ×2 (01:26→17:57)
[2023-05-19] MEDS: LOSARTAN POTASSIUM 12.5 MG TABLET PO ×3 (01:27→20:17)
[2023-05-19] MEDS: RANOLAZINE 500 MG TAB.ER.12H PO ×3 (01:27→20:24)
[2023-05-19] MEDS: MAG HYDROX/AL HYDROX/SIMETH 30 ML UDC PO (02:39)
[2023-05-19 08:34] LABS: Glucose Point of Care 122 mg/dl (65-105)
--- NOTE | 2023-05-19 09:13 | PM.CNCAR ---
Assessment and Plan Assessment and plan (1) Acute exacerbation of CHF (congestive heart failure): Qualifiers: Heart failure type: diastolic Qualified Code(s): I50.33 - Acute on chronic diastolic (congestive) heart failure Code(s): I50.9 - Heart failure, unspecified Status: Acute Assessment and Plan: Patient presents with acute on chronic heart failure with preserved ejection fraction. Accurate input and output and daily weights required to monitor volume status and assess response to therapy. Patient reports acute kidney injury with addition of metolazone. Continue intravenous Lasix 40 mg q.12h for now with further adjustment based on clinical status and response. Judicious BP control. Continue carvedilol 6.25 mg in a.m. and 12.5 mg in the evening. Continue losartan 12.5 mg daily. Monitor BP closely and renal function. DVT prophylaxis. PT OT. Continue telemetry. Patient is currently in sinus rhythm with underlying bundle branch block. Echocardiogram pending to assess LV function, chamber size, valve pathology, pulmonary pressures. Further recommendation follow after review. EF 54% by Lexiscan stress test August 2022. Patient remains on a fluid restriction at this time, questionable benefit but will continue for the time being observe response to therapy. Adjustments as appropriate. Monitor electrolytes and replete potassium and magnesium as appropriate. Check TSH. CTA chest ruled out for pulmonary embolism. No evidence for pneumonia or acute myocardial infarction. (2) CAD (coronary artery disease): Qualifiers: Coronary Disease-Associated Artery/Lesion type: [place] artery [place] vs. transplanted heart: [place] heart Associated angina: with stable angina Qualified Code(s): I25.118 - Atherosclerotic heart disease of [place] coronary artery with other forms of angina pectoris Code(s): I25.10 - Atherosclerotic heart disease of [place] coronary artery without angina pectoris Status: Acute Assessment and Plan: No clear anginal symptoms. Continue antiplatelet therapy with Effient 10 mg daily. Patient has a statin myopathy and is unable to tolerate although would be strongly advised otherwise. He is not on dual antiplatelet therapy presumably due to anemia. Monitor for bleeding. Follow H&H. Continue Ranexa 500 mg twice daily for antianginal benefit. (3) Hypertension: Qualifiers: Hypertension type: essential hypertension Qualified Code(s): I10 - Essential (primary) hypertension Code(s): I10 - Essential (primary) hypertension Status: Acute Assessment and Plan: BP stable, somewhat variable. Continue losartan 12.5 mg twice daily, furosemide, carvedilol 6.25 mg in the morning and 12.5 mg in the evening. (4) Anemia: Qualifiers: Anemia type: unspecified type Qualified Code(s): D64.9 - Anemia, unspecified Code(s): D64.9 - Anemia, unspecified Status: Acute Assessment and Plan: Chronic, stable. No evidence for bleeding. Continue to follow H&H. He is chronic intermittent mild thrombocytopenia although more persistent over the past couple of months. Monitor for bleeding. Follow trends. Continue to monitor CBC. (5) S/P CABG (coronary artery bypass graft): Onset Date: 04/2018 Code(s): Z95.1 - Presence of aortocoronary bypass graft Status: Acute Assessment and Plan: Stable. History of 3 vessel CABG 2017. Last left heart catheterization 2021 patent grafts no intervention. Last stress test 2021 in August. (6) CKD (chronic kidney disease): Qualifiers: Chronic kidney disease stage: stage 3 (moderate) Chronic kidney disease stage 3 subtype: unspecified whether 3a or 3b Qualified Code(s): N18.30 - Chronic kidney disease, stage 3 unspecified Code(s): N18.9 - Chronic kidney disease, unspecified Status: Acute Assessment and Plan: Monitor renal function electrolyt
[2023-05-19] MEDS: PRASUGREL HCL 10 MG TABLET PO (09:40)
[2023-05-19] MEDS: PANTOPRAZOLE 40 MG TABLET PO ×2 (09:41→17:57)
[2023-05-19] MEDS: FUROSEMIDE INJ 40 MG/4 ML VIAL IV PUSH ×2 (09:41→19:53)
[2023-05-19] MEDS: carvediloL 6.25 MG TABLET PO (10:49)
--- NOTE | 2023-05-19 11:02 | PM.IMPN ---
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 transplanted heart: [place] heart Qualified Code(s): I25.118 - Atherosclerotic heart disease of [place] coronary artery with other forms of angina pectoris Code(s): I25.10 - Atherosclerotic heart disease of [place] coronary artery without angina pectoris Status: Acute Assessment and Plan: Continue home medications, chest pain-free at this time (6) Obstructive sleep apnea: Code(s): G47.33 - Obstructive sleep apnea (adult) (pediatric) Status: Acute Assessment and Plan: CPAP while sleeping (7) GERD (gastroesophageal reflux disease): Code(s): K21.9 - Gastro-esophageal reflux disease without esophagitis Status: Acute Assessment and Plan: PPI (8) S/P CABG (coronary artery bypass graft): Onset Date: 04/2018 Code(s): Z95.1 - Presence of aortocoronary bypass graft Status: Acute (9) CKD (chronic kidney disease): Qualifiers: Chronic kidney disease stage: stage 3 (moderate) Chronic kidney disease stage 3 subtype: unspecified whether 3a or 3b Qualified Code(s): N18.30 - Chronic kidney disease, stage 3 unspecified Code(s): N18.9 - Chronic kidney disease, unspecified Status: Acute Assessment and Plan: Appears to be at baseline, monitor (10) Hypoglycemia: Code(s): E16.2 - Hypoglycemia, unspecified Status: Acute Assessment and Plan: Monitor, hypoglycemic protocol available (11) Prostate CA: Code(s): C61 - Malignant neoplasm of prostate Status: Acute Assessment and Plan: Follow-up outpatient Plan DVT prophylaxis with SCDs GI prophylaxis not indicated Code status full code Subjective Date/time seen: 05/19/23 11:02 Interval history: 77-year-old male with history of heart failure, diabetes and other comorbidities is presenting with shortness of breath and being worked up for heart failure exacerbation. No overnight events noted. No nausea, vomiting or diarrhea. No fevers or chills. No CP, SOB. Review of Systems Review of Systems: 12 point review of systems was assessed and was negative except as noted in the HPI Exam Narrative: General: No acute distress, alert and oriented per baseline HEENT: Atraumatic, normocephalic, mucous membranes moist CV: Regular rate and rhythm, S1, S2 Lungs: Clear to auscultation bilaterally, no rales or crackles noted, no wheezes, good air entry Abdomen: Soft, nontender, nondistended Extremities: Normal to inspection, 3+ pitting edema B/L LE Skin: No rashes noted, no lesions or wounds seen Objective Data Vital Signs Vital Signs: Vital Signs - 24 hr 05/18/23 17:01 05/18/23 17:14 05/18/23 17:15 Temperature 97.6 F Pulse Rate 66 64 Respiratory
[2023-05-19 12:13] LABS: Glucose Point of Care 133 mg/dl (65-105)
[2023-05-19 12:28] LABS: Basophils Percent Auto 0.6 % (0.2-1.2); Eosinophils Absolute Auto 0.1 K/mm3 (0-0.3); Eosinophils Percent Auto 3.5 % (0-4.4); Hematocrit 31.2 % (42.0-52.0); Hemoglobin 10.2 g/dL (14.0-18.0); Lymphocytes Absolute Auto 0.37 K/mm3 (0.9-3.2); Lymphocytes Percent Auto 11.6 % (18.3-44.2); Mean Corpuscular HGB Conc 32.7 g/dl (32-36); Mean Corpuscular Hemoglobin 32.4 pg (26-34); Mean Platelet Volume 9.4 fl (7.4-10.4); Monocytes Absolute Auto 0.4 K/mm3 (0.1-0.6); Monocytes Percent Auto 12.6 % (2.6-8.5); Neutrophils Absolute Auto 2.3 K/mm3 (1.3-6.7); Neutrophils Percent Auto 71.7 % (45.5-73.1); Platelet Count Result 142 k/mm3 (150-375); Red Blood Count 3.15 M/mm3 (4.6-6.20); Red Cell Distribution Width 15.5 % (11.5-14.5); White Blood Count 3.2 K/mm3 (4.5-10.0)
[2023-05-19 12:36] LABS: Alanine Aminotransferase 27 U/L (6-50); Albumin Level 4.1 g/dL (3.5-5.1); Alkaline Phosphatase 238 U/L (38-126); Anion Gap 7 mmol/L (8-16); Aspartate Amino Transferase 51 U/L (17-59); Blood Urea Nitrogen 27 mg/dL (9-20); Calcium 9.2 mg/dL (8.4-10.2); Carbon Dioxide 32 mmol/L (22-30); Chloride 98 mmol/L (98-107); Estimated CRCL calculation 66 ml/min; Estimated Glomerular Filt Rate 54; Glucose 133 mg/dL (65-110); Potassium 4.3 mmol/L (3.4-5.0); Sodium 137 mmol/L (137-145)
[2023-05-19 17:55] LABS: Glucose Point of Care 130 mg/dl (65-105)
[2023-05-19 22:33] LABS: Glucose Point of Care 167 mg/dl (65-105)
[2023-05-20] VITALS (11 sets, daily range): BP systolic 119–144; BP diastolic 47–64; PULSE 62–96; RESP 18–20; TEMP 36.1–36.6; O2SAT 99–100
--- NOTE | 2023-05-20 | ECHO_ITS ---
Patient Info Name: Lopez Guzman Age: 77 years : 1945 Gender: Male Ht: 73 in Wt: 334 lbs BSA: 2.86 m2 HR: 60 bpm BP: 144 / 64 mmHg Heart Rhythm: Sinus Rhythm Technical Quality: Fair Exam Date: 05/20/2023 11:36 AM Exam Location: [facility] Patient Status: Inpatient Admit Date: 05/18/2023 Staff Ordering Physician: Yahaira Westfall MD Hand Bulldozer: Tim Chau RDCS Attending Provider: Yahaira Westfall MD Referring Physician: Malou LAGOS; Exam Type: CA echo dop color flow w con Study Info Indications - CHF Complete two-dimensional, color flow and Doppler transthoracic echocardiogram is performed with contrast to opacify the left ventricle and to improve the deliniation of the left ventricle endocardial borders. Summary 1. Left ventricular chamber dimension is normal. 2. Left ventricular systolic function is normal, estimated at 60-65%. 3. There is moderately increased left ventricular wall thickness. 4. Left ventricular septal wall motion is abnormal with septal motion related to a post-operative state. 5. The left ventricular diastolic function is grade III diastolic dysfunction. 6. Right ventricular chamber dimension is moderately enlarged. 7. Right ventricular systolic function is reduced. 8. Flattening of the septum in diastole and systole consistent with right ventricular volume and pressure overload. 9. Right atrial chamber dimension is moderately enlarged. 10. There is mild mitral valve regurgitation. 11. There is mild tricuspid valve regurgitation. Left Ventricle Left ventricular chamber dimension is normal. Left ventricular systolic function is normal, estimated at 60-65%. There is moderately increased left ventricular wall thickness. Left ventricular septal wall motion is abnormal with septal motion related to a post-operative state. The left ventricular diastolic function is grade III diastolic dysfunction. Right Ventricle Flattening of the septum in diastole and systole consistent with right ventricular volume and pressure overload. Right ventricular chamber dimension is moderately enlarged. Right ventricular systolic function is reduced. Left Atria Left atrial chamber dimension is normal. Right Atria Right atrial chamber dimension is moderately enlarged. Atrial Septum Intact interatrial septum visualized by color flow imaging. Aortic Valve The aortic valve is trileaflet. There is no aortic valve stenosis. There is no aortic valve regurgitation. There is moderate aortic valve calcification. Pulmonic Valve The pulmonic valve is not well visualized. Mitral Valve The mitral valve has thickened leaflets. There is mild mitral valve regurgitation. The mitral valve annulus is mildly calcified. Tricuspid Valve There is mild tricuspid valve regurgitation. Estimated pulmonary arterial systolic pressure is 35 mmHg. Pericardium/Pleural There is no pericardial effusion. Inferior Vena Cava Dilated inferior vena cava with >50% collapse upon inspiration consistent with elevated right atrial pressure, 8 mmHg. Aorta The aortic root size at the sinus of Valsalva is mildly dilated. Left Ventricular Outflow Tract Name Value Normal LVOT 2D LVOT Diameter 2.04 cm LVOT Doppler
[2023-05-20 06:20] LABS: Basophils Percent Auto 1.1 % (0.2-1.2); Eosinophils Absolute Auto 0.1 K/mm3 (0-0.3); Eosinophils Percent Auto 3.2 % (0-4.4); Hematocrit 30.7 % (42.0-52.0); Hemoglobin 10.1 g/dL (14.0-18.0); Immature Granulocyte Absolute 0.01 K/mm3 (0.00-0.031); Immature Granulocyte Percent A 0.4 % (0-0.5); Lymphocytes Absolute Auto 0.28 K/mm3 (0.9-3.2); Mean Corpuscular HGB Conc 32.9 g/dl (32-36); Mean Corpuscular Hemoglobin 32.6 pg (26-34); Mean Platelet Volume 9.7 fl (7.4-10.4); Monocytes Absolute Auto 0.3 K/mm3 (0.1-0.6); Monocytes Percent Auto 12.2 % (2.6-8.5); Neutrophils Percent Auto 73.1 % (45.5-73.1); Platelet Count Result 149 k/mm3 (150-375); Red Cell Distribution Width 15.2 % (11.5-14.5); White Blood Count 2.8 K/mm3 (4.5-10.0)
[2023-05-20 06:29] LABS: Alanine Aminotransferase 24 U/L (6-50); Albumin Level 3.6 g/dL (3.5-5.1); Alkaline Phosphatase 202 U/L (38-126); Anion Gap 2 mmol/L (8-16); Aspartate Amino Transferase 51 U/L (17-59); Bilirubin,Total 1.7 mg/dL (0.2-1.3); Blood Urea Nitrogen 26 mg/dL (9-20); Calcium 8.9 mg/dL (8.4-10.2); Carbon Dioxide 32 mmol/L (22-30); Chloride 98 mmol/L (98-107); Estimated CRCL calculation 66 ml/min; Estimated Glomerular Filt Rate 54; Glucose 133 mg/dL (65-110); Potassium 4.4 mmol/L (3.4-5.0); Sodium 132 mmol/L (137-145)
[2023-05-20 08:18] LABS: Glucose Point of Care 156 mg/dl (65-105)
[2023-05-20] MEDS: PRASUGREL HCL 10 MG TABLET PO (09:15)
[2023-05-20] MEDS: carvediloL 6.25 MG TABLET PO (09:15)
[2023-05-20] MEDS: PANTOPRAZOLE 40 MG TABLET PO ×2 (09:15→17:19)
[2023-05-20] MEDS: RANOLAZINE 500 MG TAB.ER.12H PO ×2 (09:15→20:24)
[2023-05-20] MEDS: LOSARTAN POTASSIUM 12.5 MG TABLET PO ×2 (09:16→20:24)
[2023-05-20] MEDS: FUROSEMIDE INJ 40 MG/4 ML VIAL IV PUSH ×2 (09:16→20:24)
--- NOTE | 2023-05-20 11:36 | PM.IMPN ---
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 transplanted heart: [place] heart Qualified Code(s): I25.118 - Atherosclerotic heart disease of [place] coronary artery with other forms of angina pectoris Code(s): I25.10 - Atherosclerotic heart disease of [place] coronary artery without angina pectoris Status: Acute Assessment and Plan: Continue home medications, chest pain-free at this time (6) Obstructive sleep apnea: Code(s): G47.33 - Obstructive sleep apnea (adult) (pediatric) Status: Acute Assessment and Plan: CPAP while sleeping (7) GERD (gastroesophageal reflux disease): Code(s): K21.9 - Gastro-esophageal reflux disease without esophagitis Status: Acute Assessment and Plan: PPI (8) S/P CABG (coronary artery bypass graft): Onset Date: 04/2018 Code(s): Z95.1 - Presence of aortocoronary bypass graft Status: Acute (9) CKD (chronic kidney disease): Qualifiers: Chronic kidney disease stage: stage 3 (moderate) Chronic kidney disease stage 3 subtype: unspecified whether 3a or 3b Qualified Code(s): N18.30 - Chronic kidney disease, stage 3 unspecified Code(s): N18.9 - Chronic kidney disease, unspecified Status: Acute Assessment and Plan: Appears to be at baseline, monitor (10) Hypoglycemia: Code(s): E16.2 - Hypoglycemia, unspecified Status: Acute Assessment and Plan: Monitor, hypoglycemic protocol available (11) Prostate CA: Code(s): C61 - Malignant neoplasm of prostate Status: Acute Assessment and Plan: Follow-up outpatient Plan DVT prophylaxis with SCDs GI prophylaxis not indicated Code status full code Subjective Date/time seen: 05/20/23 11:36 Interval history: 77-year-old male with history of heart failure, diabetes and other comorbidities is presenting with shortness of breath and being worked up for heart failure exacerbation. No overnight events noted. No nausea, vomiting or diarrhea. No fevers or chills. No CP, SOB. Feels better than yesterday. Review of Systems Review of Systems: 12 point review of systems was assessed and was negative except as noted in the HPI Exam Narrative: General: No acute distress, alert and oriented per baseline HEENT: Atraumatic, normocephalic, mucous membranes moist CV: Regular rate and rhythm, S1, S2 Lungs: Clear to auscultation bilaterally, no rales or crackles noted, no wheezes, good air entry Abdomen: Soft, nontender, nondistended Extremities: Normal to inspection, 2+ pitting edema B/L LE, skin wrinkling noted Skin: No rashes noted, no lesions or wounds seen Objective Data Vital Signs Vital Signs: Vital Signs - 24 hr 05/19/23 12:00 05/06
[2023-05-20] MEDS: PERFLUTREN LIPID MICROSPHERES 1.5 ML VIAL DILUTED TO 10 ML TOTAL VOLUME IV PUSH (12:00)
--- NOTE | 2023-05-20 12:23 | PM.PNCARD ---
Progress Note: A&P Assessment and Plan (1) Acute exacerbation of CHF (congestive heart failure): Qualifiers: Heart failure type: diastolic Qualified Code(s): I50.33 - Acute on chronic diastolic (congestive) heart failure Code(s): I50.9 - Heart failure, unspecified Status: Acute Assessment and Plan: Patient presents with acute on chronic heart failure with preserved ejection fraction. Improving with IV diuresis. Continue furosemide 40 mg IV b.i.d. Has history of AALIYAH with daily metolazone use. However, still significantly volume overloaded. Will give metolazone 2.5mg x 1 prior to p.m. furosemide today. Accurate input and output and daily weights required to monitor volume status and assess response to therapy. Continue carvedilol 6.25 mg in a.m. and 12.5 mg in the evening. Continue losartan 12.5 mg daily. Monitor BP closely and renal function. Continue telemetry. Daily BMP while diuresing Repeat echo is pending (2) CAD (coronary artery disease): Qualifiers: Associated angina: with stable angina Coronary Disease-Associated Artery/Lesion type: [place] artery [place] vs. transplanted heart: [place] heart Qualified Code(s): I25.118 - Atherosclerotic heart disease of [place] coronary artery with other forms of angina pectoris Code(s): I25.10 - Atherosclerotic heart disease of [place] coronary artery without angina pectoris Status: Acute Assessment and Plan: No clear anginal symptoms. Continue antiplatelet therapy with Effient 10 mg daily. Patient has a statin myopathy and is unable to tolerate although would be strongly advised otherwise. He is not on dual antiplatelet therapy presumably due to anemia. Monitor for bleeding. Follow H&H. Continue Ranexa 500 mg twice daily for antianginal benefit. (3) Hypertension: Qualifiers: Hypertension type: essential hypertension Qualified Code(s): I10 - Essential (primary) hypertension Code(s): I10 - Essential (primary) hypertension Status: Acute Assessment and Plan: BP stable. Continue losartan 12.5 mg twice daily, furosemide, carvedilol 6.25 mg in the morning and 12.5 mg in the evening. (4) Anemia: Qualifiers: Anemia type: unspecified type Qualified Code(s): D64.9 - Anemia, unspecified Code(s): D64.9 - Anemia, unspecified Status: Acute Assessment and Plan: Chronic, stable. No evidence for bleeding. Continue to follow H&H. He is chronic intermittent mild thrombocytopenia although more persistent over the past couple of months. Monitor for bleeding. Follow trends. Continue to monitor CBC. (5) S/P CABG (coronary artery bypass graft): Onset Date: 04/2018 Code(s): Z95.1 - Presence of aortocoronary bypass graft Status: Acute Assessment and Plan: Stable. History of 3 vessel CABG 2017. Last left heart catheterization 2021 patent grafts no intervention. Last stress test 2021 in August. (6) CKD (chronic kidney disease): Qualifiers: Chronic kidney disease stage: stage 3 (moderate) Chronic kidney disease stage 3 subtype: unspecified whether 3a or 3b Qualified Code(s): N18.30 - Chronic kidney disease, stage 3 unspecified Code(s): N18.9 - Chronic kidney disease, unspecified Status: Acute Assessment and Plan: Monitor renal function electrolytes closely. Stable thus far. (7) Insulin dependent type 2 diabetes mellitus: Code(s): E11.9 - Type 2 diabetes mellitus without complications; Z79.4 - director long term care (current) use of insulin Status: Acute Assessment and Plan: Per primary service. Avoid hypoglycemia. Insulin management per primary service. Continue appropriate diet. Subjective Date/time seen: 05/20/23 12:23 Interval history: Cardiology follow-up for CHF He is feeling better today. Denies any shortness of breath at rest. He has been of bed and did not have any dyspnea wit
[2023-05-20 12:38] LABS: Glucose Point of Care 168 mg/dl (65-105)
[2023-05-20] MEDS: carvediloL 12.5 MG TABLET BY MOUTH (17:19)
[2023-05-20 17:22] LABS: Glucose Point of Care 173 mg/dl (65-105)
[2023-05-20] MEDS: metOLazone 2.5 MG TABLET PO (19:54)
[2023-05-20 21:10] LABS: Glucose Point of Care 206 mg/dl (65-105)
[2023-05-21] VITALS (12 sets, daily range): BP systolic 120–156; BP diastolic 48–59; PULSE 65–87; RESP 18; TEMP 36.6–36.7; O2SAT 98–99
[2023-05-21 06:38] LABS: Basophils Percent Auto 0.9 % (0.2-1.2); Eosinophils Absolute Auto 0.1 K/mm3 (0-0.3); Eosinophils Percent Auto 3.8 % (0-4.4); Hematocrit 30.9 % (42.0-52.0); Hemoglobin 10.1 g/dL (14.0-18.0); Immature Granulocyte Absolute 0.01 K/mm3 (0.00-0.031); Immature Granulocyte Percent A 0.3 % (0-0.5); Lymphocytes Absolute Auto 0.46 K/mm3 (0.9-3.2); Lymphocytes Percent Auto 13.3 % (18.3-44.2); Mean Corpuscular HGB Conc 32.7 g/dl (32-36); Mean Corpuscular Hemoglobin 32.7 pg (26-34); Mean Platelet Volume 9.5 fl (7.4-10.4); Monocytes Absolute Auto 0.4 K/mm3 (0.1-0.6); Neutrophils Absolute Auto 2.5 K/mm3 (1.3-6.7); Neutrophils Percent Auto 70.7 % (45.5-73.1); Platelet Count Result 153 k/mm3 (150-375); Red Blood Count 3.09 M/mm3 (4.6-6.20); Red Cell Distribution Width 15.5 % (11.5-14.5); White Blood Count 3.5 K/mm3 (4.5-10.0)
[2023-05-21 06:52] LABS: Alanine Aminotransferase 25 U/L (6-50); Albumin Level 3.7 g/dL (3.5-5.1); Alkaline Phosphatase 205 U/L (38-126); Anion Gap 2 mmol/L (8-16); Aspartate Amino Transferase 44 U/L (17-59); Bilirubin,Total 1.6 mg/dL (0.2-1.3); Blood Urea Nitrogen 24 mg/dL (9-20); Calcium 9.1 mg/dL (8.4-10.2); Carbon Dioxide 33 mmol/L (22-30); Chloride 98 mmol/L (98-107); Estimated CRCL calculation 62 ml/min; Estimated Glomerular Filt Rate 49; Glucose 194 mg/dL (65-110); Potassium 4.2 mmol/L (3.4-5.0); Sodium 133 mmol/L (137-145)
--- NOTE | 2023-05-21 08:00 | PM.IMPN ---
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 transplanted heart: [place] heart Qualified Code(s): I25.118 - Atherosclerotic heart disease of [place] coronary artery with other forms of angina pectoris Code(s): I25.10 - Atherosclerotic heart disease of [place] coronary artery without angina pectoris Status: Acute Assessment and Plan: Continue home medications, chest pain-free at this time (6) Obstructive sleep apnea: Code(s): G47.33 - Obstructive sleep apnea (adult) (pediatric) Status: Acute Assessment and Plan: CPAP while sleeping (7) GERD (gastroesophageal reflux disease): Code(s): K21.9 - Gastro-esophageal reflux disease without esophagitis Status: Acute Assessment and Plan: PPI (8) S/P CABG (coronary artery bypass graft): Onset Date: 04/2018 Code(s): Z95.1 - Presence of aortocoronary bypass graft Status: Acute (9) CKD (chronic kidney disease): Qualifiers: Chronic kidney disease stage: stage 3 (moderate) Chronic kidney disease stage 3 subtype: unspecified whether 3a or 3b Qualified Code(s): N18.30 - Chronic kidney disease, stage 3 unspecified Code(s): N18.9 - Chronic kidney disease, unspecified Status: Acute Assessment and Plan: Appears to be at baseline, monitor (10) Hypoglycemia: Code(s): E16.2 - Hypoglycemia, unspecified Status: Acute Assessment and Plan: Monitor, hypoglycemic protocol available (11) Prostate CA: Code(s): C61 - Malignant neoplasm of prostate Status: Acute Assessment and Plan: Follow-up outpatient Plan DVT prophylaxis with SCDs GI prophylaxis not indicated Code status full code Subjective Date/time seen: 05/21/23 08:00 Interval history: 77-year-old male with history of heart failure, diabetes and other comorbidities is presenting with shortness of breath and being worked up for heart failure exacerbation. No overnight events noted. No nausea, vomiting or diarrhea. No fevers or chills. No CP, SOB. Feels better than yesterday. Less swelling. Review of Systems Review of Systems: 12 point review of systems was assessed and was negative except as noted in the HPI Exam Narrative: General: No acute distress, alert and oriented per baseline HEENT: Atraumatic, normocephalic, mucous membranes moist CV: Regular rate and rhythm, S1, S2 Lungs: Clear to auscultation bilaterally, no rales or crackles noted, no wheezes, good air entry Abdomen: Soft, nontender, nondistended Extremities: Normal to inspection, 1+ pitting edema B/L LE, skin wrinkling noted Skin: No rashes noted, no lesions or wounds seen Objective Data Vital Signs Vital Signs: Vital Signs - 24 hr 05/20
[2023-05-21 08:23] LABS: Glucose Point of Care 174 mg/dl (65-105)
[2023-05-21] MEDS: PANTOPRAZOLE 40 MG TABLET PO ×2 (09:20→17:38)
[2023-05-21] MEDS: FUROSEMIDE INJ 40 MG/4 ML VIAL IV PUSH (09:20)
[2023-05-21] MEDS: carvediloL 6.25 MG TABLET PO (09:20)
[2023-05-21] MEDS: LOSARTAN POTASSIUM 12.5 MG TABLET PO ×2 (09:20→20:33)
[2023-05-21] MEDS: PRASUGREL HCL 10 MG TABLET PO (09:21)
[2023-05-21] MEDS: RANOLAZINE 500 MG TAB.ER.12H PO ×2 (09:21→20:33)
[2023-05-21 12:10] LABS: Glucose Point of Care 179 mg/dl (65-105)
[2023-05-21] MEDS: ACETAMINOPHEN 325 MG TABLET 650 MG PO (14:40)
--- NOTE | 2023-05-21 16:00 | PM.PNCARD ---
Progress Note: A&P Assessment and Plan (1) Acute exacerbation of CHF (congestive heart failure): Qualifiers: Heart failure type: diastolic Qualified Code(s): I50.33 - Acute on chronic diastolic (congestive) heart failure Code(s): I50.9 - Heart failure, unspecified Status: Acute Assessment and Plan: Patient presents with acute on chronic heart failure with preserved ejection fraction. Improving with IV diuresis. Continue furosemide 40 mg IV b.i.d. Has history of AALIYAH with daily metolazone use. However, still significantly volume overloaded. W Accurate input and output and daily weights required to monitor volume status and assess response to therapy. Continue carvedilol 6.25 mg in a.m. and 12.5 mg in the evening. Continue losartan 12.5 mg daily. Monitor BP closely and renal function closely. Potassium 4.2, creatinine stable 1.4 BUN 24. Continue telemetry. Daily BMP while diuresing EF preserved 60-65% moderate LVH, RV enlargement and dysfunction noted. Patient remains significantly volume overloaded but slowly improved. He is 4.4L negative thus far. Would prefer to escalate diuresis but need to be cautious with regards renal function and electrolytes given sensitivity in the past. If stable plan to give metolazone 2.5 mg once again tomorrow morning prior to a.m. Lasix. Increase Lasix to 60 mg IV q.12h. DVT prophylaxis with SCDs. Continue PT OT for strengthening and conditioning. Patient is not stable for discharge as he remains volume overloaded. Discussed at length with the patient who verbalized understanding and agreed with plan of care. (2) CAD (coronary artery disease): Qualifiers: Coronary Disease-Associated Artery/Lesion type: [place] artery [place] vs. transplanted heart: [place] heart Associated angina: with stable angina Qualified Code(s): I25.118 - Atherosclerotic heart disease of [place] coronary artery with other forms of angina pectoris Code(s): I25.10 - Atherosclerotic heart disease of [place] coronary artery without angina pectoris Status: Acute Assessment and Plan: No clear anginal symptoms. Continue antiplatelet therapy with Effient 10 mg daily. Patient has a statin myopathy and is unable to tolerate although would be strongly advised otherwise. He is not on dual antiplatelet therapy presumably due to anemia. Monitor for bleeding. Follow H&H. Continue Ranexa 500 mg twice daily for antianginal benefit. (3) Hypertension: Qualifiers: Hypertension type: essential hypertension Qualified Code(s): I10 - Essential (primary) hypertension Code(s): I10 - Essential (primary) hypertension Status: Acute Assessment and Plan: BP stable. Continue losartan 12.5 mg twice daily, furosemide, carvedilol 6.25 mg in the morning and 12.5 mg in the evening. (4) Anemia: Qualifiers: Anemia type: unspecified type Qualified Code(s): D64.9 - Anemia, unspecified Code(s): D64.9 - Anemia, unspecified Status: Acute Assessment and Plan: Chronic, stable. No evidence for bleeding. Continue to follow H&H. He is chronic intermittent mild thrombocytopenia although more persistent over the past couple of months. Monitor for bleeding. Follow trends. Continue to monitor CBC. (5) S/P CABG (coronary artery bypass graft): Onset Date: 04/2018 Code(s): Z95.1 - Presence of aortocoronary bypass graft Status: Acute Assessment and Plan: Stable. History of 3 vessel CABG 2017. Last left heart catheterization 2021 patent grafts no intervention. Last stress test 2021 in August. (6) CKD (chronic kidney disease): Qualifiers: Chronic kidney disease stage: stage 3 (moderate) Chronic kidney disease stage 3 subtype: unspecified whether 3a or 3b Qualified Code(s): N18.30 - Chronic kidney disease, stage 3 unspecified Code(s): N18.9 - Chronic kidney disease, unspecified Statu
[2023-05-21 17:10] LABS: Glucose Point of Care 219 mg/dl (65-105)
[2023-05-21] MEDS: carvediloL 12.5 MG TABLET BY MOUTH (17:38)
[2023-05-21] MEDS: FUROSEMIDE INJ 100 MG/10 ML VIAL 60 MG IV PUSH (19:45)
[2023-05-21 20:41] LABS: Glucose Point of Care 227 mg/dl (65-105)
[2023-05-22] VITALS (11 sets, daily range): BP systolic 118–142; BP diastolic 48–58; PULSE 65–79; RESP 16–18; TEMP 36.2–36.5; O2SAT 98–100
[2023-05-22 06:00] LABS: Basophils Percent Auto 0.8 % (0.2-1.2); Eosinophils Absolute Auto 0.1 K/mm3 (0-0.3); Eosinophils Percent Auto 2.2 % (0-4.4); Hematocrit 28.7 % (42.0-52.0); Hemoglobin 9.6 g/dL (14.0-18.0); Immature Granulocyte Absolute 0.01 K/mm3 (0.00-0.031); Immature Granulocyte Percent A 0.3 % (0-0.5); Lymphocytes Absolute Auto 0.39 K/mm3 (0.9-3.2); Mean Corpuscular HGB Conc 33.4 g/dl (32-36); Mean Corpuscular Volume 98.6 fl (80-100); Mean Platelet Volume 9.3 fl (7.4-10.4); Monocytes Absolute Auto 0.6 K/mm3 (0.1-0.6); Monocytes Percent Auto 15.4 % (2.6-8.5); Neutrophils Absolute Auto 2.5 K/mm3 (1.3-6.7); Neutrophils Percent Auto 70.3 % (45.5-73.1); Platelet Count Result 131 k/mm3 (150-375); Red Blood Count 2.91 M/mm3 (4.6-6.20); Red Cell Distribution Width 15.3 % (11.5-14.5); White Blood Count 3.6 K/mm3 (4.5-10.0)
[2023-05-22 06:12] LABS: Alanine Aminotransferase 24 U/L (6-50); Albumin Level 3.5 g/dL (3.5-5.1); Alkaline Phosphatase 210 U/L (38-126); Anion Gap 6 mmol/L (8-16); Aspartate Amino Transferase 40 U/L (17-59); Bilirubin,Total 1.8 mg/dL (0.2-1.3); Blood Urea Nitrogen 24 mg/dL (9-20); Calcium 8.7 mg/dL (8.4-10.2); Carbon Dioxide 32 mmol/L (22-30); Chloride 97 mmol/L (98-107); Estimated CRCL calculation 62 ml/min; Estimated Glomerular Filt Rate 49; Glucose 197 mg/dL (65-110); Potassium 3.9 mmol/L (3.4-5.0); Sodium 135 mmol/L (137-145)
[2023-05-22 08:25] LABS: Glucose Point of Care 196 mg/dl (65-105)
[2023-05-22] MEDS: PANTOPRAZOLE 40 MG TABLET PO ×2 (08:46→17:53)
[2023-05-22] MEDS: RANOLAZINE 500 MG TAB.ER.12H PO ×2 (08:46→20:23)
[2023-05-22] MEDS: metOLazone 2.5 MG TABLET PO (08:46)
[2023-05-22] MEDS: LOSARTAN POTASSIUM 12.5 MG TABLET PO ×2 (08:46→20:23)
[2023-05-22] MEDS: PRASUGREL HCL 10 MG TABLET PO (08:46)
[2023-05-22] MEDS: carvediloL 6.25 MG TABLET PO (08:47)
[2023-05-22] MEDS: FUROSEMIDE INJ 100 MG/10 ML VIAL 60 MG IV PUSH ×2 (08:48→19:45)
--- NOTE | 2023-05-22 11:12 | PM.IMPN ---
Progress Note: A&P Assessment and Plan (1) Acute exacerbation of CHF (congestive heart failure): Qualifiers: Heart failure type: diastolic Qualified Code(s): I50.33 - Acute on chronic diastolic (congestive) heart failure Code(s): I50.9 - Heart failure, unspecified Status: Acute Assessment and Plan: Appreciate cardiology consultation, monitor telemetry, follow-up echo IV diuresis, strict I&Os (2) Insulin dependent type 2 diabetes mellitus: Code(s): E11.9 - Type 2 diabetes mellitus without complications; Z79.4 - nursing home (current) use of insulin Status: Acute Assessment and Plan: Accu-Cheks, sliding scale insulin, check A1c (3) Body mass index (BMI) of 40.1 to 44.9 in adult: Code(s): Z68.41 - Body mass index [BMI] 40.0-44.9, adult Status: Acute (4) Degenerative joint disease of knee: Code(s): M17.10 - Unilateral primary osteoarthritis, unspecified knee Status: Acute (5) CAD (coronary artery disease): Qualifiers: Coronary Disease-Associated Artery/Lesion type: [place] artery [place] vs. transplanted heart: [place] heart Associated angina: with stable angina Qualified Code(s): I25.118 - Atherosclerotic heart disease of [place] coronary artery with other forms of angina pectoris Code(s): I25.10 - Atherosclerotic heart disease of [place] coronary artery without angina pectoris Status: Acute Assessment and Plan: Continue home medications (6) Obstructive sleep apnea: Code(s): G47.33 - Obstructive sleep apnea (adult) (pediatric) Status: Acute Assessment and Plan: CPAP while sleeping (7) GERD (gastroesophageal reflux disease): Code(s): K21.9 - Gastro-esophageal reflux disease without esophagitis Status: Acute Assessment and Plan: PPI (8) S/P CABG (coronary artery bypass graft): Onset Date: 04/2018 Code(s): Z95.1 - Presence of aortocoronary bypass graft Status: Acute (9) CKD (chronic kidney disease): Qualifiers: Chronic kidney disease stage: stage 3 (moderate) Chronic kidney disease stage 3 subtype: unspecified whether 3a or 3b Qualified Code(s): N18.30 - Chronic kidney disease, stage 3 unspecified Code(s): N18.9 - Chronic kidney disease, unspecified Status: Acute Assessment and Plan: Appears to be at baseline, monitor (10) Prostate CA: Code(s): C61 - Malignant neoplasm of prostate Status: Acute Assessment and Plan: Follow-up outpatient Subjective Date/time seen: 05/22/23 11:12 Interval history: Doing okay. Not short of breath Review of Systems Review of Systems: 12 point review of systems was assessed and was negative except as noted in the HPI Exam Narrative: General: No acute distress, alert and oriented per baseline HEENT: Atraumatic, normocephalic, mucous membranes moist CV: Regular rate and rhythm, S1, S2 Lungs: Clear to auscultation bilaterally, no rales or crackles noted, no wheezes, good air entry Abdomen: Soft, nontender, nondistended Extremities: Normal to inspection, 1+ pitting edema B/L LE, skin wrinkling noted Skin: No rashes noted, no lesions or wounds seen Objective Data Vital Signs Vital Signs: Vital Signs - 24 hr 05/21/23 11:20 05/21/23 12:00 05/21/23 13:18 Temperature Pulse Rate 74 Respiratory Rate Blood Pressure Pulse Oximetry Oxygen Delivery Room Air Room Air 05/21/23 15:14 05/21/23 16:00 05/21/23 17:38 Temperature 98.0 F Pulse Rate 79 80 87 Respiratory Rate 18 Blood Pressure 120/48 L Pulse Oximetry 99 Oxygen Delivery 05/21/23 19:44 05/21/23 20:00 05/21/23 20:00 Temperature 97.8 F Pulse Rate 72 69 69 Respiratory Rate 18 18 Blood Pressure 123/58 L Pulse Oximetry 98 98 Oxygen Delivery Room Air 05/22/23 00:00 05/22/23 03:48 05/21/23 22:30 Temperature 97.7 F
--- NOTE | 2023-05-22 12:18 | PM.PNCARD ---
Progress Note: A&P Assessment and Plan (1) Acute exacerbation of CHF (congestive heart failure): Qualifiers: Heart failure type: diastolic Qualified Code(s): I50.33 - Acute on chronic diastolic (congestive) heart failure Code(s): I50.9 - Heart failure, unspecified Status: Acute Assessment and Plan: Patient presents with acute on chronic heart failure with preserved ejection fraction. Improving with IV diuresis. Has history of AALIYAH with daily metolazone use but tolerating thus far. Will use on an as-needed basis. Last dose this morning. Accurate input and output and daily weights required to monitor volume status and assess response to therapy. Continue carvedilol 6.25 mg in a.m. and 12.5 mg in the evening. Continue losartan 12.5 mg daily. Monitor BP closely and renal function closely. Potassium 3.9, creatinine stable 1.4 BUN 24. Supplement potassium if further decline in a.m.. Continue telemetry. Daily BMP while diuresing EF preserved 60-65% moderate LVH, RV enlargement and dysfunction noted. Patient remains significantly volume overloaded but slowly improved. He is 4.5L negative thus far as recorded, however, per his description at least 1 L has not been account for as he has urinated the toilet without being measured with BMs. Continue Lasix 60 mg IV q.12h for now monitor clinical response. Discussed transition to oral diuretic regimen if significant improvement overnight with an eye towards discharge in the next 48 hours. DVT prophylaxis with SCDs. Continue PT OT for strengthening and conditioning. Patient is not stable for discharge as he remains volume overloaded. Discussed at length with the patient who verbalized understanding and agreed with plan of care. (2) CAD (coronary artery disease): Qualifiers: Coronary Disease-Associated Artery/Lesion type: [place] artery [place] vs. transplanted heart: [place] heart Associated angina: with stable angina Qualified Code(s): I25.118 - Atherosclerotic heart disease of [place] coronary artery with other forms of angina pectoris Code(s): I25.10 - Atherosclerotic heart disease of [place] coronary artery without angina pectoris Status: Acute Assessment and Plan: No clear anginal symptoms. Continue antiplatelet therapy with Effient 10 mg daily. Patient has a statin myopathy and is unable to tolerate although would be strongly advised otherwise. He is not on dual antiplatelet therapy presumably due to anemia. Monitor for bleeding. Follow H&H. Continue Ranexa 500 mg twice daily for antianginal benefit. (3) Hypertension: Qualifiers: Hypertension type: essential hypertension Qualified Code(s): I10 - Essential (primary) hypertension Code(s): I10 - Essential (primary) hypertension Status: Acute Assessment and Plan: BP stable. Continue losartan 12.5 mg twice daily, furosemide, carvedilol 6.25 mg in the morning and 12.5 mg in the evening. (4) Anemia: Qualifiers: Anemia type: unspecified type Qualified Code(s): D64.9 - Anemia, unspecified Code(s): D64.9 - Anemia, unspecified Status: Acute Assessment and Plan: Chronic, stable. No evidence for bleeding. Continue to follow H&H. He is chronic intermittent mild thrombocytopenia although more persistent over the past couple of months. Monitor for bleeding. Follow trends. Continue to monitor CBC. (5) S/P CABG (coronary artery bypass graft): Onset Date: 04/2018 Code(s): Z95.1 - Presence of aortocoronary bypass graft Status: Acute Assessment and Plan: Stable. History of 3 vessel CABG 2017. Last left heart catheterization 2021 patent grafts no intervention. Last stress test 2021 in August. (6) CKD (chronic kidney disease): Qualifiers: Chronic kidney disease stage: stage 3 (moderate) Chronic kidney disease stage 3 subtype: unspecified whether 3a or 3b Qualified Code(s):
[2023-05-22 12:25] LABS: Glucose Point of Care 213 mg/dl (65-105)
[2023-05-22] MEDS: ACETAMINOPHEN 325 MG TABLET 650 MG PO (12:32)
[2023-05-22] MEDS: CLOBETASOL PROPIONATE 0.05% CREAM 15 GM 1 APPLIC TOPICAL (12:34)
[2023-05-22 17:44] LABS: Glucose Point of Care 213 mg/dl (65-105)
[2023-05-22] MEDS: carvediloL 12.5 MG TABLET BY MOUTH (17:53)
[2023-05-22] MEDS: INSULIN ASPART (*BKC) 100 UNITS/ML SUB-Q (17:54)
[2023-05-22 21:40] LABS: Glucose Point of Care 217 mg/dl (65-105)
[2023-05-23] VITALS (11 sets, daily range): BP systolic 118–143; BP diastolic 53–62; PULSE 63–90; RESP 16–18; TEMP 36.1–36.8; O2SAT 99–100
[2023-05-23 05:40] LABS: Anion Gap 4 mmol/L (8-16); Blood Urea Nitrogen 24 mg/dL (9-20); Calcium 8.8 mg/dL (8.4-10.2); Carbon Dioxide 33 mmol/L (22-30); Chloride 94 mmol/L (98-107); Estimated CRCL calculation 66 ml/min; Estimated Glomerular Filt Rate 54; Glucose 202 mg/dL (65-110); Potassium 3.8 mmol/L (3.4-5.0); Sodium 131 mmol/L (137-145)
[2023-05-23 08:36] LABS: Glucose Point of Care 195 mg/dl (65-105)
--- NOTE | 2023-05-23 09:31 | PM.PNCARD ---
Progress Note: A&P Assessment and Plan (1) Acute exacerbation of CHF (congestive heart failure): Qualifiers: Heart failure type: diastolic Qualified Code(s): I50.33 - Acute on chronic diastolic (congestive) heart failure Code(s): I50.9 - Heart failure, unspecified Status: Acute Assessment and Plan: Patient presents with acute on chronic heart failure with preserved ejection fraction. Improving with IV diuresis. Has history of AALIYAH with daily metolazone use but tolerating thus far with p.r.n. dosing. Will give another dose this evening. Hope to be able to shift to p.o. furosemide tomorrow. Accurate input and output and daily weights required to monitor volume status and assess response to therapy. Continue carvedilol 6.25 mg in a.m. and 12.5 mg in the evening. Continue losartan 12.5 mg daily. Monitor BP closely and renal function closely. Stable today. Continue telemetry. Daily BMP while diuresing EF preserved 60-65% moderate LVH, RV enlargement and dysfunction noted. (2) CAD (coronary artery disease): Qualifiers: Associated angina: with stable angina Coronary Disease-Associated Artery/Lesion type: [place] artery [place] vs. transplanted heart: [place] heart Qualified Code(s): I25.118 - Atherosclerotic heart disease of [place] coronary artery with other forms of angina pectoris Code(s): I25.10 - Atherosclerotic heart disease of [place] coronary artery without angina pectoris Status: Acute Assessment and Plan: No clear anginal symptoms. Continue antiplatelet therapy with Effient 10 mg daily. Patient has a statin myopathy and is unable to tolerate although would be strongly advised otherwise. He is not on dual antiplatelet therapy presumably due to anemia. Monitor for bleeding. Follow H&H. Continue Ranexa 500 mg twice daily for antianginal benefit. (3) Hypertension: Qualifiers: Hypertension type: essential hypertension Qualified Code(s): I10 - Essential (primary) hypertension Code(s): I10 - Essential (primary) hypertension Status: Acute Assessment and Plan: BP stable. Continue losartan 12.5 mg twice daily, furosemide, carvedilol 6.25 mg in the morning and 12.5 mg in the evening. (4) Anemia: Qualifiers: Anemia type: unspecified type Qualified Code(s): D64.9 - Anemia, unspecified Code(s): D64.9 - Anemia, unspecified Status: Acute Assessment and Plan: Chronic, stable. No evidence for bleeding. Continue to follow H&H. He is chronic intermittent mild thrombocytopenia although more persistent over the past couple of months. Monitor for bleeding. Follow trends. Continue to monitor CBC. (5) S/P CABG (coronary artery bypass graft): Onset Date: 04/2018 Code(s): Z95.1 - Presence of aortocoronary bypass graft Status: Acute Assessment and Plan: Stable. History of 3 vessel CABG 2017. Last left heart catheterization 2021 patent grafts no intervention. Last stress test 2021 in August. (6) CKD (chronic kidney disease): Qualifiers: Chronic kidney disease stage: stage 3 (moderate) Chronic kidney disease stage 3 subtype: unspecified whether 3a or 3b Qualified Code(s): N18.30 - Chronic kidney disease, stage 3 unspecified Code(s): N18.9 - Chronic kidney disease, unspecified Status: Acute Assessment and Plan: Monitor renal function electrolytes closely. Stable thus far. Currently 1.4. Continue to follow closely. Check BMP in a.m.. Replete potassium as warranted. Tolerating diuretic therapy thus far fairly well. Sodium level is also tolerating diuresis. (7) Insulin dependent type 2 diabetes mellitus: Code(s): E11.9 - Type 2 diabetes mellitus without complications; Z79.4 - [facility] (current) use of insulin Status: Acute Assessment and Plan: Per primary service. Avoid hypoglycemia. Insulin management per primary service. Cont
[2023-05-23] MEDS: PRASUGREL HCL 10 MG TABLET PO (09:43)
[2023-05-23] MEDS: RANOLAZINE 500 MG TAB.ER.12H PO ×2 (09:43→22:23)
[2023-05-23] MEDS: LOSARTAN POTASSIUM 12.5 MG TABLET PO ×2 (09:43→22:24)
[2023-05-23] MEDS: FUROSEMIDE INJ 100 MG/10 ML VIAL 60 MG IV PUSH ×2 (09:44→22:24)
[2023-05-23] MEDS: PANTOPRAZOLE 40 MG TABLET PO ×2 (09:44→17:53)
[2023-05-23] MEDS: carvediloL 6.25 MG TABLET PO (09:45)
--- NOTE | 2023-05-23 11:15 | ECG_ITS ---
Measurements Intervals [place] Rate: 67 P: TN: 0 QRS: -44 QRSD: 158 T: 145 QT: 488 QTc: 516 Interpretive Statements ATRIAL FIBRILLATION MARKED LEFT AXIS DEVIATION [QRS AXIS < -30] INTRAVENTRICULAR CONDUCTION DELAY POSSIBLE LATERAL MYOCARDIAL INFARCTION , OF INDETERMINATE AGE [30 ms Q WAVE IN I/aVL/V5/V6] ABNORMAL ECG COMPARED TO ECG 05/18/2023 17:16:41 ATRIAL FIBRILLATION NOW PRESENT Electronically Signed On 05-23-2023 16:08:11 CDT by Yonathan Vences M.D.
--- NOTE | 2023-05-23 11:56 | PM.IMPN ---
Progress Note: A&P Assessment and Plan (1) Acute exacerbation of CHF (congestive heart failure): Qualifiers: Heart failure type: diastolic Qualified Code(s): I50.33 - Acute on chronic diastolic (congestive) heart failure Code(s): I50.9 - Heart failure, unspecified Status: Acute Assessment and Plan: Appreciate cardiology consultation, monitor telemetry continue iv diuresis Plan to switch to p.o. diuresis tomorrow (2) Insulin dependent type 2 diabetes mellitus: Code(s): E11.9 - Type 2 diabetes mellitus without complications; Z79.4 - [facility] (current) use of insulin Status: Acute Assessment and Plan: Accu-Cheks, sliding scale insulin, check A1c (3) CAD (coronary artery disease): Qualifiers: Coronary Disease-Associated Artery/Lesion type: [place] artery [place] vs. transplanted heart: [place] heart Associated angina: with stable angina Qualified Code(s): I25.118 - Atherosclerotic heart disease of [place] coronary artery with other forms of angina pectoris Code(s): I25.10 - Atherosclerotic heart disease of [place] coronary artery without angina pectoris Status: Acute Assessment and Plan: Continue home medications (4) Obstructive sleep apnea: Code(s): G47.33 - Obstructive sleep apnea (adult) (pediatric) Status: Acute Assessment and Plan: CPAP while sleeping (5) GERD (gastroesophageal reflux disease): Code(s): K21.9 - Gastro-esophageal reflux disease without esophagitis Status: Acute Assessment and Plan: PPI (6) S/P CABG (coronary artery bypass graft): Onset Date: 04/2018 Code(s): Z95.1 - Presence of aortocoronary bypass graft Status: Acute (7) CKD (chronic kidney disease): Qualifiers: Chronic kidney disease stage: stage 3 (moderate) Chronic kidney disease stage 3 subtype: unspecified whether 3a or 3b Qualified Code(s): N18.30 - Chronic kidney disease, stage 3 unspecified Code(s): N18.9 - Chronic kidney disease, unspecified Status: Acute Assessment and Plan: Appears to be at baseline, monitor (8) Prostate CA: Code(s): C61 - Malignant neoplasm of prostate Status: Acute Assessment and Plan: Follow-up outpatient Subjective Date/time seen: 05/23/23 11:56 Interval history: feeling better Review of Systems Review of Systems: 12 point review of systems was assessed and was negative except as noted in the HPI Exam Narrative: General: No acute distress, alert and oriented per baseline HEENT: Atraumatic, normocephalic, mucous membranes moist CV: Regular rate and rhythm, S1, S2 Lungs: Clear to auscultation bilaterally, no rales or crackles noted, no wheezes, good air entry Abdomen: Soft, nontender, nondistended Extremities: Normal to inspection, 1+ pitting edema B/L LE, skin wrinkling noted Skin: No rashes noted, no lesions or wounds seen Objective Data Vital Signs Vital Signs: Vital Signs - 24 hr 05/22/23 14:40 05/22/23 17:53 05/22/23 12:00 Temperature 97.6 F Pulse Rate 76 79 74 Respiratory Rate 18 Blood Pressure 130/58 L Pulse Oximetry 100 Oxygen Delivery 05/22/23 16:00 05/22/23 20:17 05/22/23 20:00 Temperature 97.2 F L Pulse Rate 79 76 65 Respiratory Rate 18 Blood Pressure 118/48 L Pulse Oximetry 98 Oxygen Delivery 05/22/23 20:00 05/23/23 00:00 05/23/23 04:00 Temperature Pulse Rate 76 72 63 Respiratory Rate 18 Blood Pressure Pulse Oximetry 98 Oxygen Delivery Room Air 05/23/23 05:50 05/23/23 08:00 05/23/23 09:45 Temperature 98.2 F Pulse Rate 63 73 66 Respiratory Rate 16 Blood Pressure 143/61 H Pulse Oximetry 99 Oxygen Delivery 05/23/23 08:00 Temperature Pulse Rate Respiratory Rate Blood Pressure Pulse Oximetry Oxygen Delivery Room Air Intake/Output Intake/Output: Intake & Outp
[2023-05-23 12:02] LABS: Glucose Point of Care 246 mg/dl (65-105)
[2023-05-23] MEDS: INSULIN ASPART (*BKC) 100 UNITS/ML SUB-Q ×2 (12:18→17:56)
[2023-05-23 17:34] LABS: Glucose Point of Care 250 mg/dl (65-105)
[2023-05-23] MEDS: carvediloL 12.5 MG TABLET BY MOUTH (17:53)
[2023-05-23] MEDS: metOLazone 2.5 MG TABLET PO (17:53)
[2023-05-23 20:42] LABS: Glucose Point of Care 267 mg/dl (65-105)
[2023-05-23] MEDS: APIXABAN 5 MG TABLET PO (22:23)
[2023-05-24] VITALS (13 sets, daily range): BP systolic 110–146; BP diastolic 31–97; PULSE 51–99; RESP 16–20; TEMP 36.4–36.7; O2SAT 96–98
[2023-05-24 06:04] LABS: Anion Gap 5 mmol/L (8-16); Blood Urea Nitrogen 25 mg/dL (9-20); Calcium 8.8 mg/dL (8.4-10.2); Carbon Dioxide 36 mmol/L (22-30); Chloride 93 mmol/L (98-107); Estimated CRCL calculation 72 ml/min; Estimated Glomerular Filt Rate 59; Glucose 223 mg/dL (65-110); Potassium 3.7 mmol/L (3.4-5.0); Sodium 134 mmol/L (137-145)
[2023-05-24 08:21] LABS: Glucose Point of Care 211 mg/dl (65-105)
[2023-05-24] MEDS: INSULIN ASPART (*BKC) 100 UNITS/ML SUB-Q ×4 (08:43→21:29)
[2023-05-24] MEDS: RANOLAZINE 500 MG TAB.ER.12H PO ×2 (08:48→21:29)
[2023-05-24] MEDS: PANTOPRAZOLE 40 MG TABLET PO ×2 (08:49→17:32)
[2023-05-24] MEDS: FUROSEMIDE INJ 100 MG/10 ML VIAL 60 MG IV PUSH ×2 (08:49→21:28)
[2023-05-24] MEDS: PRASUGREL HCL 10 MG TABLET PO (08:49)
[2023-05-24] MEDS: APIXABAN 5 MG TABLET PO ×2 (08:49→21:29)
[2023-05-24] MEDS: LOSARTAN POTASSIUM 12.5 MG TABLET PO ×2 (08:49→21:29)
[2023-05-24] MEDS: carvediloL 6.25 MG TABLET PO (08:49)
--- NOTE | 2023-05-24 11:55 | PM.PNCARD ---
Progress Note: A&P Assessment and Plan (1) Acute exacerbation of CHF (congestive heart failure): Qualifiers: Heart failure type: diastolic Qualified Code(s): I50.33 - Acute on chronic diastolic (congestive) heart failure Code(s): I50.9 - Heart failure, unspecified Status: Acute (2) S/P CABG (coronary artery bypass graft): Onset Date: 04/2018 Code(s): Z95.1 - Presence of aortocoronary bypass graft Status: Acute Plan Continue intravenous furosemide as he still has quite a bit of lower extremity edema. He understands this will not looks normal when he does leave the hospital but at this time his renal function is tolerating his current regimen. Yonathan Vences MD [facility] Subjective Date/time seen: Date of service: 05/24/23 11:55 Interval history: Cardiology follow-up for CHF Date of service 05/21/2023: Patient states his legs are worse fullness afternoon as he was sitting up in the chair for 2-3 hours. Notes a little shortness of breath walking with physical therapy otherwise stable. No dizziness or chest pain. He feels metolazone yesterday really helped him urinate more. Legs now [place] wrapped as of this afternoon. Date of service 05/22/2023: Patient feels better today. He states his swelling is notably improved as his abdominal fullness. He denies exertional dyspnea. He denies dizziness, chest pain. No new issues overnight. He complains of a rash over his lower abdomen and his home medication which has been prescribed for this condition and he is requesting a toothbrush. Date of service 05/23/2023: Continues to diurese well. Legs are wrapped, edema improving, now able to strap his shoe. Less abdominal fullness. Date of service 05/24/2023: Reports to be diuresing well he says he is urinating frequently. Legs are wrapped and his edema is improving he is asking for them to be re wrapped at this time. Still receiving intravenous furosemide. Renal function looks fine on today's labs Exam Narrative: General: Very pleasant morbidly obese male sitting in a chair breathing comfortably speaking full sentences, well developed, alert and oriented x3. No apparent distress, comfortable, pleasant, and cooperative. Head: atraumatic, normocephalic Eyes: EOM intact, sclerae anicteric, conjunctivae unremarkable Ears/Nose: external inspection of ears and nose were grossly normal Mouth/Throat: oral mucosa pink and moist Neck: supple, normal range of motion, no jugular venous distention or carotid bruits, thyroid nonpalpable, trachea midline. Cardiac: Regular rate and rhythm, normal S1-S2, grade 2/6 early systolic murmur with split S2 Lungs: Diminished breath sounds at the bases, no rales, wheezes, or rhonchi. Respirations unlabored Abdomen: Morbidly obese, soft, nontender, nondistended, positive bowel sounds throughout. Unable to appreciate hepatosplenomegaly, no rebound guarding or rigidity noted. Abdominal aorta nonpalpable, no appreciable bruits. Extremities: 1-2+ bilateral pitting lower extremity edema extending up to his lower abdomen, LE [place] wraps bilaterally no clubbing, or cyanosis. Skin: Warm and dry without ecchymoses, and/or petechiae. Faint reddish rash in the crease of his lower abdomen under pannus. Musculoskeletal: Muscle strength and tone intact throughout without obvious deformities. Well-healed median sternotomy scar Vascular: Carotid upstrokes 2+ bilaterally, radial pulses 2+ on the right, absent on the left due to surgical harvest, dorsalis pedis pulses nonpalpable due to significant pedal edema Neurologic: Cranial nerves 2-12 grossly intact, examination grossly nonfocal Psychiatric: Mood calm and appropriate. Const: General: comfortable, no acute distress, alert and awake Orientation/consciousness: patient oriented x3 HENMT: Head: normal to inspection Eyes: General: appearance normal, both eyes and al
[2023-05-24] MEDS: POTASSIUM CHLORIDE 20 MEQ ER TABLET 40 MEQ PO (11:58)
[2023-05-24 12:07] LABS: Glucose Point of Care 226 mg/dl (65-105)
--- NOTE | 2023-05-24 12:17 | PM.IMPN ---
Progress Note: A&P Assessment and Plan (1) Acute exacerbation of CHF (congestive heart failure): Qualifiers: Heart failure type: diastolic Qualified Code(s): I50.33 - Acute on chronic diastolic (congestive) heart failure Code(s): I50.9 - Heart failure, unspecified Status: Acute Assessment and Plan: Appreciate cardiology consultation, monitor telemetry continue iv diuresis for now. 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 transplanted heart: [place] heart Associated angina: with stable angina Qualified Code(s): I25.118 - Atherosclerotic heart disease of [place] coronary artery with other forms of angina pectoris Code(s): I25.10 - Atherosclerotic heart disease of [place] coronary artery without angina pectoris Status: Acute Assessment and Plan: Continue home medications (4) Obstructive sleep apnea: Code(s): G47.33 - Obstructive sleep apnea (adult) (pediatric) Status: Acute Assessment and Plan: CPAP while sleeping (5) GERD (gastroesophageal reflux disease): Code(s): K21.9 - Gastro-esophageal reflux disease without esophagitis Status: Acute Assessment and Plan: PPI (6) S/P CABG (coronary artery bypass graft): Onset Date: 04/2018 Code(s): Z95.1 - Presence of aortocoronary bypass graft Status: Acute Assessment and Plan: Stable (7) CKD (chronic kidney disease): Qualifiers: Chronic kidney disease stage: stage 3 (moderate) Chronic kidney disease stage 3 subtype: unspecified whether 3a or 3b Qualified Code(s): N18.30 - Chronic kidney disease, stage 3 unspecified Code(s): N18.9 - Chronic kidney disease, unspecified Status: Acute Assessment and Plan: Appears to be at baseline, monitor (8) Prostate CA: Code(s): C61 - Malignant neoplasm of prostate Status: Acute Assessment and Plan: Follow-up outpatient Subjective Date/time seen: 05/24/23 12:17 Interval history: No shortness of breaths. Swelling in legs is a little bit better Review of Systems Review of Systems: 12 point review of systems was assessed and was negative except as noted in the HPI Exam Narrative: General: No acute distress, alert and oriented per baseline HEENT: Atraumatic, normocephalic, mucous membranes moist CV: Regular rate and rhythm, S1, S2 Lungs: Clear to auscultation bilaterally, no rales or crackles noted, no wheezes, good air entry Abdomen: Soft, nontender, nondistended Extremities: Normal to inspection, 1+ pitting edema B/L LE, skin wrinkling noted Skin: No rashes noted, no lesions or wounds seen Objective Data Vital Signs Vital Signs: Vital Signs - 24 hr 05/23/23 14:32 05/23/23 17:53 05/23/23 16:00 Temperature 97.0 F L Pulse Rate 65 73 90 Respiratory Rate 18 Blood Pressure 135/53 L Pulse Oximetry 100 Oxygen Delivery 05/23/23 21:53 05/23/23 20:00 05/23/23 20:00 Temperature 97.7 F Pulse Rate 64 65 Respiratory Rate 18 Blood Pressure 118/62 Pulse Oximetry 100 Oxygen Delivery Room Air 05/24/23 00:00 05/24/23 04:00 05/24/23 06:00 Temperature 98.0 F Pulse Rate 77 65 70 Respiratory Rate 20 Blood Pressure 146/68 H Pulse Oximetry 98 Oxygen Delivery 05/24/23 08:49 05/24/23 08:00 Temperature Pulse Rate 85 64 Respiratory Rate Blood Pressure Pulse Oximetry Oxygen Delivery Intake/Output Intake/Output: Intake & Output 05/21/23 05/22/23 05/23/23 05/24/23 23:59 23:59 23:59 23:59 Intake Total 1660 / 1660 150
[2023-05-24 17:18] LABS: Glucose Point of Care 220 mg/dl (65-105)
[2023-05-24] MEDS: carvediloL 12.5 MG TABLET BY MOUTH (17:31)
[2023-05-24 20:07] LABS: Glucose Point of Care 287 mg/dl (65-105)
[2023-05-25] VITALS: PULSE 74
[2023-05-25 04:00] VITALS: PULSE 64
[2023-05-25 04:23] VITALS: BP 128/52; PULSE 63; RESP 18; TEMP 36.7; O2SAT 100
[2023-05-25 06:31] LABS: Anion Gap 5 mmol/L (8-16); Blood Urea Nitrogen 25 mg/dL (9-20); Calcium 8.9 mg/dL (8.4-10.2); Carbon Dioxide 37 mmol/L (22-30); Chloride 92 mmol/L (98-107); Estimated CRCL calculation 66 ml/min; Estimated Glomerular Filt Rate 54; Glucose 198 mg/dL (65-110); Potassium 3.9 mmol/L (3.4-5.0); Sodium 134 mmol/L (137-145)
--- NOTE | 2023-05-25 07:54 | PM.PNCARD ---
Progress Note: A&P Assessment and Plan (1) Obstructive sleep apnea: Code(s): G47.33 - Obstructive sleep apnea (adult) (pediatric) Status: Acute (2) Acute exacerbation of CHF (congestive heart failure): Qualifiers: Heart failure type: diastolic Qualified Code(s): I50.33 - Acute on chronic diastolic (congestive) heart failure Code(s): I50.9 - Heart failure, unspecified Status: Acute Plan 77-year-old man with significant CHF volume overload markedly improved following IV furosemide in the hospital. I am going to shifted back to his oral regimen and I believe he is achieved maximum hospital benefit I believe he should be discharged at this time. I will try to get the office to put an order in for CHF rehab program referral as an outpatient. Obviously that can not happen on Friday. Will ensure that he has timely follow-up in our office with my partner, Dr. Kevin Vences MD [facility] Subjective Date/time seen: date of service:05/25/23 07:54 Interval history: Cardiology follow-up for CHF Date of service 05/21/2023: Patient states his legs are worse fullness afternoon as he was sitting up in the chair for 2-3 hours. Notes a little shortness of breath walking with physical therapy otherwise stable. No dizziness or chest pain. He feels metolazone yesterday really helped him urinate more. Legs now [place] wrapped as of this afternoon. Date of service 05/22/2023: Patient feels better today. He states his swelling is notably improved as his abdominal fullness. He denies exertional dyspnea. He denies dizziness, chest pain. No new issues overnight. He complains of a rash over his lower abdomen and his home medication which has been prescribed for this condition and he is requesting a toothbrush. Date of service 05/23/2023: Continues to diurese well. Legs are wrapped, edema improving, now able to strap his shoe. Less abdominal fullness. Date of service 05/24/2023: Reports to be diuresing well he says he is urinating frequently. Legs are wrapped and his edema is improving he is asking for them to be re wrapped at this time. Still receiving intravenous furosemide. Renal function looks fine on today's labs Date of service 05/25/2023: Patient continues to do well and diurese effectively. He is happy with his volume status and would like to be considered for discharge at this time. He also would like to be referred for CHF cardiac rehab Exam Narrative: General: Very pleasant morbidly obese male sitting in a chair breathing comfortably speaking full sentences, well developed, alert and oriented x3. No apparent distress, comfortable, pleasant, and cooperative. Head: atraumatic, normocephalic Eyes: EOM intact, sclerae anicteric, conjunctivae unremarkable Ears/Nose: external inspection of ears and nose were grossly normal Mouth/Throat: oral mucosa pink and moist Neck: supple, normal range of motion, no jugular venous distention or carotid bruits, thyroid nonpalpable, trachea midline. Cardiac: Regular rate and rhythm, normal S1-S2, grade 2/6 early systolic murmur with split S2 Lungs: Diminished breath sounds at the bases, no rales, wheezes, or rhonchi. Respirations unlabored Abdomen: Morbidly obese, soft, nontender, nondistended, positive bowel sounds throughout. Unable to appreciate hepatosplenomegaly, no rebound guarding or rigidity noted. Abdominal aorta nonpalpable, no appreciable bruits. Extremities: 1-2+ bilateral pitting lower extremity edema extending up to his lower abdomen, LE AGUILA wraps bilaterally no clubbing, or cyanosis. Skin: Warm and dry without ecchymoses, and/or petechiae. Faint reddish rash in the crease of his lower abdomen under pannus. Musculoskeletal: Muscle strength and tone intact throughout without obvious deformities. Well-healed median sternotomy scar Vascular: Carotid upstrokes 2+ bilaterally, radial pulses
[2023-05-25 08:35] LABS: Glucose Point of Care 194 mg/dl (65-105)
[2023-05-25] MEDS: RANOLAZINE 500 MG TAB.ER.12H PO (09:25)
[2023-05-25 09:26] VITALS: PULSE 68
[2023-05-25] MEDS: APIXABAN 5 MG TABLET PO (09:26)
[2023-05-25] MEDS: carvediloL 6.25 MG TABLET PO (09:26)
[2023-05-25] MEDS: LOSARTAN POTASSIUM 12.5 MG TABLET PO (09:26)
[2023-05-25] MEDS: PANTOPRAZOLE 40 MG TABLET PO (09:26)
[2023-05-25] MEDS: FUROSEMIDE 40 MG TABLET PO (09:26)
[2023-05-25] MEDS: PRASUGREL HCL 10 MG TABLET PO (09:26)
--- NOTE | 2023-05-25 10:24 | PM.DS ---
DS: Admitting Diagnosis Discharge Date 05/25/2023 Admitting Diagnosis CHF exacerbation DS: Discharge Diagnosis Discharge Diagnosis (1) Atrial fibrillation: Code(s): I48.91 - Unspecified atrial fibrillation Status: Acute (2) CKD (chronic kidney disease): Qualifiers: Chronic kidney disease stage: stage 3 (moderate) Chronic kidney disease stage 3 subtype: unspecified whether 3a or 3b Qualified Code(s): N18.30 - Chronic kidney disease, stage 3 unspecified Code(s): N18.9 - Chronic kidney disease, unspecified Status: Acute (3) S/P CABG (coronary artery bypass graft): Onset Date: 04/2018 Code(s): Z95.1 - Presence of aortocoronary bypass graft Status: Acute (4) Obstructive sleep apnea: Code(s): G47.33 - Obstructive sleep apnea (adult) (pediatric) Status: Acute (5) Acute exacerbation of CHF (congestive heart failure): Qualifiers: Heart failure type: diastolic Qualified Code(s): I50.33 - Acute on chronic diastolic (congestive) heart failure Code(s): I50.9 - Heart failure, unspecified Status: Acute DS: Summary Hospital Course Hospital Course: Patient presents with acute on chronic heart failure with preserved ejection fraction.? Cardiology was consulted. he was started on IV Lasix along with IV metolazone. Improving with IV diuresis. Continue Coreg, continue losartan at home dose Echo done: EF preserved 60-65% moderate LVH, RV enlargement and dysfunction noted. Also has a history of coronary disease. continue antiplatelet therapy with Effient 10 mg daily.? Patient has a statin myopathy and is unable to tolerate although would be strongly advised otherwise.? He is not on dual antiplatelet therapy presumably due to anemia.? Monitor for bleeding.? Follow H&H.? Continue Ranexa 500 mg twice daily for antianginal benefit. Chronic anemia is stable.? No evidence for bleeding.? Irregular rhythm noted on telemetry, Afib confirmed by EKG.? Rate controlled on coreg.? [id number] score 4, systemic a/c is indicated.? Will start apixaban 5mg b.i.d. patient is clinically back to baseline. He is being discharged on home dose of Lasix. Follow up with Cardiology as outpatient Time Spent with Patient Time attestation: Total time spent providing and/or coordinating discharge services: DS: Data Data Completed and Pending Labs on day of discharge: Labs from last 24 hours 05/25/23 05/25/23 05/24/23 08:21 05:47 20:01 Sodium 134 L Potassium 3.9 Chloride 92 L Carbon Dioxide 37 H Anion Gap 5 L BUN 25 H Creatinine 1.30 Estim Creat Clear Calc 66 Estimated GFR 54 L Glucose 198 H POC Capillary Glucose 194 H 287 H Calcium 8.9 05/24/23 05/24/23 17:15 12:02 Sodium Potassium Chloride Carbon Dioxide Anion Gap BUN Creatinine Estim Creat Clear Calc Estimated GFR Glucose POC Capillary Glucose 220 H 226 H Calcium Discharge Plan Discharge Consulting providers: Juwan Brown Discharging Clinician: Theo Escobar Anticipated Discharge Date/Time: 05/25/23 10:21 Patient Disposition: Home Health Service Activity: no preference Diet: heart healthy and diabetic Discharge Instructions: Per Care Coordination Patient has been accepted to have [facility] Home Health services for RN, PT, OT RN please fax completed discharge instructions to [phone] Patient Instructions: Antibiotic Form, Prasugrel (By mouth), Heart Healthy Diet (DC), Safe Use of Anticoagulants (DC) Stand Alone Forms: General Discharge Information Follow-up/Referrals: Juwan Brown MD [Physician] - Leonila Chapa MD [Primary Care Provider] - Discharge Medications: New Eliquis 5 mg Tablet 5 mg PO Q12HR Qty: 60 0RF Continued acetaminophen [Pain Reliever (acetaminophen)] 325 mg tablet 650 mg PO Q6H PRN (Reason: Pain (Scale Score 1-3)) furosemide [Lasix]
[2023-05-25 12:12] LABS: Glucose Point of Care 249 mg/dl (65-105)
[2023-05-25] MEDS: INSULIN ASPART (*BKC) 100 UNITS/ML SUB-Q (12:31)
== END 2023-05-25 14:01 | disposition home health service (06) | DRG 291 ==
LOC: ANHED 19:44 → ANH3MED 20:17
PROVIDERS: Internal Medicine Cardiovascular Disease; Student in an Organized Health Care Education/Training Program; Admitting Provider Internal Medicine; Emergency Provider Physician Assistant; PCP Family Medicine; Visit Provider Hospitalist
DX: I13.0 Hypertensive heart and chronic kidney disease with heart failure and stage 1 through stage 4 chronic kidney disease, or unspecified chronic kidney disease (principal); I50.33 Acute on chronic diastolic (congestive) heart failure; Z68.42 Body mass index [BMI] 45.0-49.9, adult; D64.9 Anemia, unspecified; I25.10 Atherosclerotic heart disease of native coronary artery without angina pectoris; M17.10 Unilateral primary osteoarthritis, unspecified knee; E11.42 Type 2 diabetes mellitus with diabetic polyneuropathy; E11.22 Type 2 diabetes mellitus with diabetic chronic kidney disease; N18.30 Chronic kidney disease, stage 3 unspecified; E78.5 Hyperlipidemia, unspecified; L30.9 Dermatitis, unspecified; K21.9 Gastro-esophageal reflux disease without esophagitis; E66.01 Morbid (severe) obesity due to excess calories; G47.33 Obstructive sleep apnea (adult) (pediatric); Z85.46 Personal history of malignant neoplasm of prostate; Z85.53 Personal history of malignant neoplasm of renal pelvis; I25.2 Old myocardial infarction; Z95.5 Presence of coronary angioplasty implant and graft; Z95.1 Presence of aortocoronary bypass graft
CPT/HCPCS: 36415; 71045; 71275; 80048; 80053; 81001; 82948; 83880; 84443; 84484; 85025; 85380; 85610; 85730; 93005; 96374; 96375; 96376; 97161; 97165; 99285; A9270; C8929; G0378; J1815; J1940; Q9957; Q9967

== ENCOUNTER 2023-08-30 22:06 | Emergency (ER) | payer BC, SELFPAY ==
--- NOTE | ~2023-08-30 | XR_ITS ---
EXAMINATION: XR chest 1V portable INDICATION: Nausea and vomiting TECHNIQUE: Portable AP chest at 1253 hours COMPARISON: 05/18/2023 FINDINGS: There is mild atelectasis of the left lung base.. No pleural effusion or pneumothorax. Card iomegaly is noted. Median sternotomy wires and mediastinal surgical clips are seen, likely from prior coronary artery bypass grafting. IMPRESSION: 1. Mild atelectasis of the left lung base Reviewed, dictated and finalized at location F. ITY COMPLIANCE COORDINATOR
--- NOTE | ~2023-08-30 | CT_ITS ---
EXAMINATION: CT lumbar spine wo con DATE: 08/30/2023 23:00 INDICATION: Low back pain TECHNIQUE: Computed tomography (CT) of the lumbar spine was performed without intravenous contrast. T he dose-length product (DLP) was 1443.95 mGy-cm. Iterative reconstruction was used. COMPARISON: 12/20/2022 FINDINGS: Bone alignment is normal. There is no fracture. There is severe loss of intervertebral disc space height at L2-3. Vacuum disc phenomenon is noted at L4-5. The vertebral body heights are mainta ined. There is mild facet joint osteoarthritis of the lower lumbar spine. Severe central canal stenos is is noted at L3-4. Changes in the right kidney likely reflect radiofrequency ablation. There is a 3 cm cyst of the right kidney. IMPRESSION: 1. Moderate lumbar spondylosis with severe central canal stenosis at L3-4. Reviewed, dictated and finalized at location F. ERYMAN ASSISTANT
[2023-08-30 22:06] VITALS: BP 87/73; PULSE 65; RESP 19; TEMP 36.4; O2SAT 99
--- NOTE | 2023-08-30 22:10 | ECG_ITS ---
Measurements Intervals Alexis Rate: 70 P: UT: 0 QRS: -50 QRSD: 157 T: 125 QT: 457 QTc: 494 Interpretive Statements ATRIAL FIBRILLATION VENTRICULAR PREMATURE COMPLEX LEFT AXIS DEVIATION IVCD, CONSIDER ATYPICAL LEFT BUNDLE BRANCH BLOCK BASELINE WANDER- V3-V6 ABNORMAL ECG COMPARED TO ECG 05/23/2023 13:53:39 NO SIGNIFICANT CHANGES Electronically Signed On 08-30-2023 22:24:38 CANNERY WORKER by Tra Guillaume D.O.
[2023-08-30] MEDS: LIDOCAINE 5% PATCH 1 PATCH TRANSDERM (22:44)
[2023-08-30] MEDS: methocarbamoL 750 MG TABLET 1500 MG PO (22:44)
[2023-08-30 22:46] VITALS: BP 124/85; PULSE 76
[2023-08-30 22:48] VITALS: BP 118/66; PULSE 67; RESP 15; O2SAT 100
[2023-08-30 23:22] VITALS: PULSE 65; RESP 17
[2023-08-30 23:30] VITALS: PULSE 69; RESP 15
[2023-08-30 23:45] VITALS: PULSE 73; RESP 14
[2023-08-31] VITALS (25 sets, daily range): BP systolic 134–163; BP diastolic 59–82; PULSE 59–93; RESP 12–19; O2SAT 100
[2023-08-31] MEDS: ONDANSETRON INJ 4 MG/2 ML VIAL IV PUSH (00:16)
[2023-08-31 01:24] LABS: Basophils Percent Auto 0.4 % (0.2-1.2); Eosinophils Absolute Auto 0.1 K/mm3 (0-0.3); Eosinophils Percent Auto 1.2 % (0-4.4); Hematocrit 30.2 % (42.0-52.0); Hemoglobin 10.3 g/dL (14.0-18.0); Immature Granulocyte Absolute 0.02 K/mm3 (0.00-0.031); Immature Granulocyte Percent A 0.4 % (0-0.5); Lymphocytes Absolute Auto 0.81 K/mm3 (0.9-3.2); Lymphocytes Percent Auto 16.4 % (18.3-44.2); Mean Corpuscular HGB Conc 34.1 g/dl (32-36); Mean Corpuscular Hemoglobin 33.4 pg (26-34); Mean Corpuscular Volume 98.1 fl (80-100); Monocytes Absolute Auto 0.6 K/mm3 (0.1-0.6); Monocytes Percent Auto 12.8 % (2.6-8.5); Neutrophils Absolute Auto 3.4 K/mm3 (1.3-6.7); Neutrophils Percent Auto 68.8 % (45.5-73.1); Platelet Count Result 159 k/mm3 (150-375); Red Blood Count 3.08 M/mm3 (4.6-6.20); Red Cell Distribution Width 13.3 % (11.5-14.5); White Blood Count 4.9 K/mm3 (4.5-10.0)
[2023-08-31 01:30] LABS: Appearance Urine Clear (Clear); Bacteria Urine None Seen /hpf; Bilirubin Urine Negative (Negative); Blood Urine Negative (Negative); Color Urine Yellow (Yellow); Glucose Urine UA Negative (Negative); Ketones Urine Negative (Negative); Leukocyte Esterase Ur Trace LEU/UL (Negative); Nitrate Urine Negative (Negative); Protein Urine Negative (Negative); RBC Urine 0-2 /hpf (0-2); Specific Grav Ur 1.014 (1.001-1.035); Squamous Epithelial Cell Urine None seen /hpf (Few); Urobilinogen Urine 0.2 mg/dL (<2.0); WBC Urine 0-5 /hpf
[2023-08-31 01:36] LABS: INR 1.6
[2023-08-31 01:37] LABS: Partial Thromboplastin Time 40.2 SECONDS (22.3-36.8)
[2023-08-31] MEDS: ACETAMINOPHEN 500 MG TABLET 1000 MG PO (01:37)
[2023-08-31 02:17] LABS: Influenza A QL RT-PCR Negative (Negative); Influenza B QL RT-PCR Negative (Negative); RSV RNA, RT-PCR Negative (Negative); SARS-CoV-2 RNA PCR Negative (Negative)
[2023-08-31 02:24] LABS: Add Urine Microscopic? YES
--- NOTE | 2023-08-31 03:25 | ED.GENADULT ---
HPI - General Adult General Chief complaint: Abdominal Pain Stated complaint: Lower back pain Time Seen by Provider: 08/30/23 22:15 History of Present Illness HPI narrative: This is a 77-year-old male presenting to ED with multiple complaints. The patient's 1st complaint was lower back pain. Patient says that he has an aching bandlike pain across his lower back, that is nonradiating, and occurred after he rode on a train for 3 hours. After his initial workup for lower back pain was completed the patient stated that he does not feel well. He says he is having abdominal discomfort, and nausea/vomiting. Says he feels weak. He denies fevers chills chest pain, difficulty breathing or urinary symptoms. He does have edema of his lower extremities with a known hx of CHF. Related Data Home Medications Medication Instructions Recorded Confirmed acetaminophen 325 mg tablet (Pain 650 mg PO Q6H PRN Pain (Scale 09/07/19 06/18/23 Reliever (acetaminophen)) Score 1-3) clobetasol 0.05 % topical cream 1 applic topical DAILY PRN Itching 12/15/20 06/18/23 psyllium husk 0.4 gram capsule 0.8 g PO HS PRN Constipation 03/06/21 06/18/23 (Metamucil) evolocumab 140 mg/mL subcutaneous 140 mg subcut [id number] 05/07/21 06/18/23 pen injector (Repmilada SureMarioick) furosemide 40 mg tablet (Lasix) 40 mg PO BID 05/08/23 06/18/23 losartan 25 mg tablet 12.5 mg PO BID 05/15/23 06/18/23 prasugrel 10 mg tablet 10 mg PO DAILY 05/15/23 06/18/23 Allergies Allergy/AdvReac Type Severity Reaction Status Date / Time Penicillins Allergy Severe Anaphylaxis Verified 06/18/23 13:08 liraglutide Allergy Unknown Hives / Verified 06/18/23 13:08 Red Face [id number] Reductase AdvReac Unknown Muscle Verified 06/18/23 13:08 Inhibitor Spasms [Lyrmffn-Ygx-Xqi Reductase Inhibitor] [facility] Past Medical History Medical History Abnormality of gait CAD (coronary artery disease) Multivessel coronary artery disease with stents to the proximal and distal LAD, mid right coronary artery July 2014 with prior catheterization performed [facility] January 2018 had severe diffuse 3 vessel coronary artery disease with multiple stenoses of about 70% and mid to distal LAD between previously placed proximal and distal stents, 50-70% diffuse stenosis of the circumflex with a proximal stenosis of: To and total occlusion of a the marginal branch and diffuse distal right coronary artery disease with occluded RPDA referred for CABG 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ory Hx of tonsillectomy S/P CABG (coronary artery bypass graft) (04/2018) YESENIA to LAD, vein graft to OM, radial graft to RPDA, RCA was diffusely diseased and not a great target for bypass, LAD was also diffusely diseased Status post open reduction with internal fixation of fracture Of left leg at age 21 Stented coronary artery Family History Family History Father Family history of heart disease in male family member before age 55 Acute myocardial infarction Hypertension Mother Family history of heart disease in male family member before age 55 Acute myocardial infarction Emphysema of lung Asthma Sibling Family history of heart disease in male family member before age 55 Acute myocardial infarction Hypertension Polycystic kidney disease Sibling Family history of heart disease in male family member before age 55 Acute myocardial infarction
[2023-08-31 04:40] LABS: Alanine Aminotransferase 25 U/L (6-50); Albumin Level 4.1 g/dL (3.5-5.1); Alkaline Phosphatase 162 U/L (38-126); Anion Gap 12 mmol/L (8-16); Aspartate Amino Transferase 45 U/L (17-59); Bilirubin,Total 1.5 mg/dL (0.2-1.3); Blood Urea Nitrogen 47 mg/dL (9-20); Calcium 10.5 mg/dL (8.4-10.2); Carbon Dioxide 20 mmol/L (22-30); Chloride 102 mmol/L (98-107); Estimated CRCL calculation 49 ml/min; Estimated Glomerular Filt Rate 42; Glucose 150 mg/dL (65-110); Lipase 67 U/L (23-300); Magnesium 2.3 mg/dL (1.6-2.3); Potassium 4.9 mmol/L (3.4-5.0); Sodium 134 mmol/L (137-145)
[2023-08-31 04:51] LABS: NT Pro B Type Natriuretic Pept 3200 pg/mL (19.9-100); Troponin I 0.034 ng/mL (0.000-0.034)
== END 2023-08-31 06:53 | disposition home or self-care (01) ==
PROVIDERS: Emergency Provider Emergency Medicine; PCP Family Medicine
DX: M54.50 Low back pain, unspecified (principal); R11.2 Nausea with vomiting, unspecified; Z20.822 Contact with and (suspected) exposure to COVID-19; I25.10 Atherosclerotic heart disease of native coronary artery without angina pectoris; I10 Essential (primary) hypertension; I25.2 Old myocardial infarction; E11.40 Type 2 diabetes mellitus with diabetic neuropathy, unspecified; E78.5 Hyperlipidemia, unspecified; K21.9 Gastro-esophageal reflux disease without esophagitis; E66.01 Morbid (severe) obesity due to excess calories; Z68.35 Body mass index [BMI] 35.0-35.9, adult; G47.33 Obstructive sleep apnea (adult) (pediatric); Z95.1 Presence of aortocoronary bypass graft; Z95.5 Presence of coronary angioplasty implant and graft; Z85.528 Personal history of other malignant neoplasm of kidney; Z85.46 Personal history of malignant neoplasm of prostate; I49.3 Ventricular premature depolarization; I48.91 Unspecified atrial fibrillation; R94.31 Abnormal electrocardiogram [ECG] [EKG]; M47.816 Spondylosis without myelopathy or radiculopathy, lumbar region; Z79.01 Long term (current) use of anticoagulants; Z79.4 Long term (current) use of insulin
CPT/HCPCS: 36415; 71045; 72131; 80053; 81001; 83690; 83735; 83880; 84484; 85025; 85610; 85730; 87040; 87637; 93005; 96374; 99284; A9270; J2405

== ENCOUNTER 2023-10-13 17:08 | Outpatient (CLI) | payer BC, SELFPAY ==
[2023-10-13 18:21] LABS: Influenza A QL RT-PCR Negative (Negative); Influenza B QL RT-PCR Negative (Negative); RSV RNA, RT-PCR Negative (Negative); SARS-CoV-2 RNA PCR Negative (Negative)
== END 2023-10-13 17:09 | disposition home or self-care (01) ==
LOC: ANHLAB 17:09
PROVIDERS: PCP Family Medicine; Visit Provider Physician Assistant
DX: R11.0 Nausea (principal); Z20.822 Contact with and (suspected) exposure to COVID-19
CPT/HCPCS: 87637

== ENCOUNTER 2024-10-25 16:00 | Outpatient (CLI) | payer MEDICARE, SELFPAY ==
[2024-10-25 16:57] LABS: Influenza A QL RT-PCR Positive (Negative); Influenza B QL RT-PCR Negative (Negative); RSV RNA, RT-PCR Negative (Negative); SARS-CoV-2 RNA PCR Negative (Negative)
== END 2024-10-25 16:01 | disposition home or self-care (01) ==
LOC: ANHLAB 16:07
PROVIDERS: PCP Family Medicine; Visit Provider Physician Assistant Medical
DX: J06.9 Acute upper respiratory infection, unspecified (principal); R53.83 Other fatigue; Z20.822 Contact with and (suspected) exposure to COVID-19
CPT/HCPCS: 87637

== ENCOUNTER 2025-04-13 12:51 | Inpatient (IN) | payer MEDICARE, SELFPAY ==
[2025-04-13] VITALS (8 sets, daily range): BP systolic 89–138; BP diastolic 42–68; PULSE 50–82; RESP 12–20; TEMP 36–36.4; O2SAT 96–100; BMI 34.9
--- NOTE | ~2025-04-13 | XR_ITS ---
XR hip RT 1V Ordering provider: Ziggy Gardner MD History: . POST OP RIGHT HIP . Comparison: None. FINDINGS/impression: Right hip arthroplasty. No definite fractures seen. Lucency seen in the area of the superior pubic ramus is most likely summa tion shadow. Proper imaging is advised. Postoperative changes are seen in the subcutaneous tissues. Reviewed, dictated and finalized at location A.
--- NOTE | ~2025-04-13 | CT_ITS ---
Non-contrast Head CT History: CVA Technique: Axial non-contrast imaging of the brain was performed. Dose reduction technique was used on this scan by utilizing automated exposure control and iterative reconstruction technique. The dose -length product (DLP) was 605.33 mGy-cm. Findings: There is no evidence of intracranial hemorrhage, mass lesion, or acute infarct. Brain par enchyma appears normal. The ventricles and subarachnoid spaces are normal in size. The calvarium ap pears normal. The visualized paranasal sinuses and mastoid air cells are clear. Impression: No significant abnormality seen. Reviewed, dictated and finalized at location . Impression: No significant abnormality seen.
--- NOTE | ~2025-04-13 | XR_ITS ---
XR chest 1V portable Ordering provider: Cassidy Figueroa APRN History: 79 years Male with . Preop . Comparison: August 31, 2023 FINDINGS: MEDIASTINUM: The cardiac silhouette is slightly enlarged. Postoperative changes in the mediastinum. C ongestive yaya. LUNGS: No infiltrates, effusions or pneumothorax. Bilateral prominent bronchovascular markings. OTHER: No free air under the diaphragm. IMPRESSION: Cardiomegaly with congestive yaya. Prominent markings in the lower lobes. Reviewed, dictated and finalized at location A.
--- NOTE | ~2025-04-13 | CT_ITS ---
EXAM/PROCEDURE: CT hip RT wo con 04/13/2025 14:28 CDT HISTORY: Femoral neck fracture COMPARISON: Abdomen radiograph dated 04/13/2025 TECHNIQUE: Axial CT of the right hip was obtained. Coronal and sagittal reformats were obtained from axial data set. FINDINGS: Acute displaced fracture of the right femoral neck with anterior displacement of the distal fracture segment. Joint space narrowing, subchondral sclerosis, subchondral cyst formation and osteophyte form ation, compatible with moderate osteoarthritis.The visualized soft tissue structures are unremarkable . IMPRESSION: Acute displaced fracture of the right femoral neck with anterior displacement of the distal fracture segment. Reviewed, dictated and finalized at location A. IMPRESSION: Acute displaced fracture of the right femoral neck with anterior displacement o f the distal fracture segment.
--- NOTE | ~2025-04-13 | XR_ITS ---
HISTORY: trauma COMPARISON: None TECHNIQUE: 2 views of the right hip along with an AP view of the pelvis FINDINGS: Acute partially comminuted fracture of the right femoral neck is identified. Medial displacement of the fracture fragment with overlap is present. Brachii therapy seeds within the prostate gland. Periarticular osteopenia. Superior lateral joint space narrowing sclerosis also noted. IMPRESSION: Acute partially comminuted fracture of the right femoral neck with overlap of the fractu re fragments are noted. Reviewed, dictated and finalized at location A. IMPRESSION: Acute partially comminuted fracture of the right femoral neck with overlap of the fracture fragments are noted.
--- NOTE | ~2025-04-13 | XR_ITS ---
EXAM/ PROCEDURE: XR femur RT min 2V - 04/13/2025 13:50 CDT HISTORY: 79 years old Male with trauma COMPARISON: None available TECHNIQUE: Four view(s) FINDINGS/ IMPRESSION: Linear lucency in the femoral neck, concerning for an acute nondisplaced fracture. Correlate with poi nt tenderness. Joint space narrowing, subchondral sclerosis, subchondral cyst formation and osteophyte formation, co mpatible with moderate osteoarthritis. Reviewed, dictated and finalized at location A.
--- NOTE | 2025-04-13 13:03 | ED.GENADULT ---
HPI - General Adult General Chief complaint: Fall Stated complaint: GLF, hip pain History of Present Illness HPI narrative: 79-year-old male presented to the emergency department for evaluation for right leg pain. Patient was attempting to close his garage door when he slipped landed on his right arm and right leg. Patient was unable to ambulate and called EMS. When EMS arrived he was having difficulty moving the right leg. Patient does not complain of right hip pain but more of mid right femur pain. Patient denies striking his head denies any loss consciousness. Patient does have some abrasions and skin tears to the right arm that do not need repair. Patient does have a history of hypertension, diabetes, AFib, patient is supposed to be taking Eliquis but has not taken in the last 4 days. Related Data Home Medications ?Medication ?Instructions ?Recorded ?Confirmed ?Last Taken ?Type evolocumab 140 mg/mL subcutaneous 140 mg subcut [id number] 05/07/21 01/25/25 Unknown History pen injector (Repatha moziyMarioick) losartan 25 mg tablet 12.5 mg PO BID 05/15/23 01/25/25 Unknown History spironolactone 25 mg tablet 25 mg PO DAILY 09/01/23 01/25/25 Unknown History Allergies Allergy/AdvReac Type Severity Reaction Status Date / Time Penicillins Allergy Severe Anaphylaxis Verified 04/13/25 18:31 liraglutide Allergy Unknown Hives / Verified 04/13/25 18:31 Red Face Qnhyytb-[id number] Reductase AdvReac Unknown Muscle Verified 04/13/25 18:31 Inhibitor (Usxjigu-Tfz-Xmb Spasms Reductase Inhibitor) Review of Systems Review of Systems: All systems reviewed & are unremarkable except as noted in HPI and below [facility] Past Medical History Medical History Acute exacerbation of CHF (congestive heart failure) Skin tear of right lower leg without complication Pre-ulcerative corn or callous Kidney mass Pancreatic mass Nausea & vomiting Anemia Acquired deformity of left thigh Preoperative clearance Foot lesion Cellulitis Elsa tropicalis infection Hypotension Fall Bronchitis Elevated carbon dioxide level Alkaline phosphatase elevation Prostate cancer screening Body mass index (BMI) of 40.1 to 44.9 in adult Degenerative joint disease of knee Renal malignant neoplasm Prostate CA Intracranial atherosclerosis Eczema Hypertensive urgency Non-STEMI (non-ST elevated myocardial infarction) Most recent non-STEMI 12/11/2018 Obstructive sleep apnea Intolerant to CPAP Prostate cancer Renal cell carcinoma Elevated PSA, between 10 and less than 20 ng/ml Vertigo Morbid (severe) obesity due to excess calories Abnormality of gait CAD (coronary artery disease) Multivessel coronary artery disease with stents to the proximal and distal LAD, mid right coronary artery July 2014 with prior catheterization performed [facility] January 2018 had severe diffuse 3 vessel coronary artery disease with multiple stenoses of about 70% and mid to distal LAD between previously placed proximal and distal stents, 50-70% diffuse stenosis of the circumflex with a proximal stenosis of: To and total occlusion of a the marginal branch and diffuse distal right coronary artery disease with occluded RPDA referred for CABG DM neuropathy with neurologic complication GERD (gastroesophageal reflux disease) Dyslipidemia Hypertension Surgical History Surgical History Status post open reduction with internal fixation of fracture Of left leg at age 21 Stented coronary artery Hx of tonsillectomy S/P CABG (coronary artery bypass graft) (04/2018) YESENIA to LAD, vein graft to OM, radial graft to RPDA, RCA was diffusely diseased and not a great target for bypass, LAD was also diffusely diseased Family History Family History Father Family history of heart disease in male family member before age 55 Acute myocardial infarction Hypertension Mother Family history of heart disease in male family member before age 55 Acute myocardial infarction Emphysema of lung Asthma Sibling Family history of heart disease in male family member before age 55 Acute myocardial infarction Hypertension Polycystic kidney disease Sibling Family history of heart disease in male family member before age 55 Acute myocardial infarction Breast cancer Sibling Emphysema of lung Cerebrovascular accident Son Acute myocardial infarction Social History Social History Social History: He is and lives alone. He has an adult son and a daughter. 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 He is a lifelong nonsmoker and does not drink alcohol. Code status: Full code (he would not want to be on long-term life support or have a tracheostomy or PEG tube.) Surrogate decision maker: Adjacent (son) Smoking status: Never smoker Second hand tobacco smoke exposure: No Alcohol intake: never Substance use: never Substance use type: does not use Do You Feel Safe in your Home?: Yes Lack of Transportation: No Lack of Food: Sometimes True Current Housing: I Have Housing Concerned About Future Housing: YES Difficulty Paying Gas/Electric Bills: YES Difficulty Paying for Meds: YES Currently Unemployed: No Education: Decline to Answer Difficulty w/ Childcare or Family Care: No Living arrangements: alone Occupation/Education: retired Gender identity (if verbalized by the patient): Male Sexual Orientation (if Verbalized by the Patient): Straight or Heterosexual Spiritual care concerns: No Exam Narrative: APPEARANCE: Uncomfortable appearing HEAD: normocephalic, atraumatic. EYES: PERRLA/EOMI, conjunctivae clear. NOSE: Normal no drainage EARS:TMS clear with good light reflex. THROAT: Pharynx clear, no exudate. NECK: Supple. No adenopathy, no masses. RESPIRATORY: Airway patent, respirations nonlabored. Clear to auscultation bilaterally, no rales, rhonchi, wheezing. CARDIOVASCULAR: Regular rate and rhythm without murmurs rubs or gallops. ABDOMINAL: Soft, nontender, nondistended, normal bowel sounds MUSCULOSKELETAL: Tenderness to right femur, limited range of motion of right leg, neurovascularly intact NEURO: Alert. Cranial nerves II through XII intact. Grossly intact SKIN: Warm, dry. Normal Color Course Vital Signs Vital signs: Vital Signs Temperature 97.6 F 04/13/25 13:02 Pulse Rate 58 L 04/13/25 13:02 Respiratory Rate 16 04/13/25 13:02 Blood Pressure 116/47 L 04/13/25 13:02 Pulse Oximetry 99 04/13/25 13:02 Oxygen Delivery Room Air 04/13/25 13:02 Temperature 96.8 F L 04/13/25 18:03 Pulse Rate 80 04/13/25 18:03 Respiratory Rate 20 04/13/25 18:03 Blood Pressure 138/68 04/13/25 18:03 Pulse Oximetry 99 04/13/25 18:03 Oxygen Delivery Room Air 04/13/25 13:02 Medical Decision Making [facility] Narrative Medical decision making narrative: 79-year-old male presents emergency department for evaluation for right hip pain. Patient does have a right femoral neck fracture. Orthopedics was consulted. Case was discussed with hospitalist patient was accepted for admission. Patient was updated on the results of the workup and plan for admission. Differential Diagnosis Differential Diagnosis: Femur fracture knee fracture hip fracture Vital Signs Vital Signs: Vital Signs Temperature 97.6 F 04/13/25 13:02 Pulse Rate 58 L 04/13/25 13:02 Respiratory Rate 16 04/13/25 13:02 Blood Pressure 116/47 L 04/13/25 13:02 Pulse Oximetry 99 04/13/25 13:02 Oxygen Delivery Room Air 04/13/25 13:02 Temperature 96.8 F L 04/13/25 18:03 Pulse Rate 80 04/13/25 18:03 Respiratory Rate 20 04/13/25 18:03 Blood Pressure 138/68 04/13/25 18:03 Pulse Oximetry 99 04/13/25 18:03 Oxygen Delivery Room Air 04/13/25 13:02 Lab Data Lab results reviewed: Yes I reviewed the patient's lab results. 04/13/25 13:27 04/13/25 13:27 Labs: Lab Results 04/13/25 Range/Units 13:27 WBC 3.5 L (4.5-10.0) K/mm3 RBC 2.85 L (4.6-6.20) M/mm3 Hgb 9.5 L (14.0-18.0) g/dL Hct 27.9 L (42.0-52.0) % MCV 97.9 (80-100) fl MCH 33.3 (26-34) pg MCHC 34.1 (32-36) g/dl RDW 13.7 (11.5-14.5) % Plt Count 117 L (150-375) k/mm3 MPV 9.3 (7.4-10.4) fl Immature Gran % (Auto) 0.9 H (0-0.5) % Neut % (Auto) 62.2 (45.5-73.1) % Lymph % (Auto) 18.4 (18.3-44.2) % [place] % (Auto) 12.1 H (2.6-8.5) % Eos % (Auto) 5.5 H (0-4.4) % Baso % (Auto) 0.9 (0.2-1.2) % Lymph # (Auto) 0.64 L (0.9-3.2) K/mm3 [place] # (Auto) 0.4 (0.1-0.6) K/mm3 Eos # (Auto) 0.2 (0-0.3) K/mm3 Baso # (Auto) 0.0 (0.0-0.1) K/mm3 Abs Immat Gran (auto) 0.03 (0.00-0.031) K/mm3 Absolute Neuts (auto) 2.2 (1.3-6.7) K/mm3 Absolute Nucleated RBC 0.000 (0.0-0.012) K/mm3 Nucleated RBC % 0.0 (0.0-0.2) % PT 15.1 H (11.1-14.7) Seconds INR 1.2 APTT 29.5 (22.3-36.8) Seconds Sodium 137 (137-145) mmol/L Potassium 5.1 H (3.4-5.0) mmol/L Chloride 109 H (98-107) mmol/L Carbon Dioxide 21 L (22-30) mmol/L Anion Gap 7 (4-12) mmol/L BUN 36 H D (9-20) mg/dL Creatinine 1.44 H (0.7-1.3) mg/dL Estim Creat Clear Calc 50 ml/min Estimated GFR 47 L (59 - ) Glucose 179 H (65-110) mg/dL Calcium 9.1 (8.4-10.2) mg/dL Total Bilirubin 1.1 (0.2-1.3) mg/dL AST 41 (17-59) U/L ALT 30 (6-50) U/L Alkaline Phosphatase 145 H (38-126) U/L Total Protein 6.8 (6.3-8.2) g/dL Albumin 3.4 L (3.5-5.1) g/dL Imaging Data Radiologist's impression: Impressions Hip/Pelvis X-Ray 04/13/25 14:06 IMPRESSION: Acute partially comminuted fracture of the right femoral neck with overlap of the fracture fragments are noted. Hip CT 04/13/25 14:44 IMPRESSION: Acute displaced fracture of the right femoral neck with anterior displacement of the distal fracture segment. Discharge Plan Discharge Clinical Impression: Femoral neck fracture Patient Disposition: Still a Patient Condition: Stable
[2025-04-13] MEDS: HYDROmorphone HCL INJ (*CRX) 2 MG/ML VIAL 0.5 MG IV PUSH ×3 (13:12→21:15)
[2025-04-13] MEDS: CYCLOBENZAPRINE HCL 10 MG TABLET PO (13:13)
[2025-04-13 13:36] LABS: Hematocrit 27.9 % (42.0-52.0); Hemoglobin 9.5 g/dL (14.0-18.0); Immature Granulocyte Percent A 0.9 % (0-0.5); Lymphocytes Absolute Auto 0.64 K/mm3 (0.9-3.2); Mean Corpuscular HGB Conc 34.1 g/dl (32-36); Mean Corpuscular Hemoglobin 33.3 pg (26-34); Mean Corpuscular Volume 97.9 fl (80-100); Nucleated Red Blood Cells Absolute Auto 0.000 K/mm3 (0.0-0.012); Nucleated Red Blood Cells Perc 0.0 % (0.0-0.2); Platelet Count Result 117 k/mm3 (150-375); Red Blood Count 2.85 M/mm3 (4.6-6.20); White Blood Count 3.5 K/mm3 (4.5-10.0)
[2025-04-13 13:45] LABS: Alanine Aminotransferase 30 U/L (6-50); Albumin Level 3.4 g/dL (3.5-5.1); Alkaline Phosphatase 145 U/L (38-126); Anion Gap 7 mmol/L (4-12); Aspartate Amino Transferase 41 U/L (17-59); Bilirubin,Total 1.1 mg/dL (0.2-1.3); Blood Urea Nitrogen 36 mg/dL (9-20); Calcium 9.1 mg/dL (8.4-10.2); Carbon Dioxide 21 mmol/L (22-30); Chloride 109 mmol/L (98-107); Estimated CRCL calculation 50 ml/min; Estimated Glomerular Filt Rate 47; Glucose 179 mg/dL (65-110); Potassium 5.1 mmol/L (3.4-5.0); Sodium 137 mmol/L (137-145); Total Protein 6.8 g/dL (6.3-8.2)
[2025-04-13 13:47] LABS: INR 1.2; Prothrombin Time 15.1 Seconds (11.1-14.7)
[2025-04-13 13:49] LABS: Partial Thromboplastin Time 29.5 Seconds (22.3-36.8)
--- OUTSIDE RECORDS SUMMARY | 2025-04-13 14:04 | XMS_ITS | Clinical Summary ---
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 Gender Identity Not on file Sexual Orientation Not on file Plan of Treatment Health Maintenance Due Date Last Done Comments Hepatitis C Virus (HCV) Screening 1945 Pneumococcal Immunization (50+ years) (1 of 1 - PCV) 12/09/1995 Zoster Immunization (1 of 2) 12/09/1995 Respiratory Syncytial Virus (RSV) Immunization (Adult) (1 - 1-dose 75+ series) 2020 SARS-COV-2 Immunization ( season) 2024 09/05/2022, 08/22/2021, 12/18/2020, Additional history exists Influenza Immunization (#1) 06/06/202510/06, 09/05/2022, 09/16/2020, Additional history exists DTaP/Tdap/Td Immunization Discontinued 10/14/2023 TdaP Immunization Completed 10/14/2023 Hepatitis B Immunization Aged Out No longer eligible based on patient's age to complete this topic Human Papillomavirus (HPV) Immunization Aged Out No longer eligible based on patient's age to complete this topic Meningococcal Immunization (ACWY) Aged Out No longer eligible based on patient's age to complete this topic Rotavirus Immunization Aged Out No lo nger eligible based on patient's age to complete this topic Insurance MEDICARE [facility] Care Teams Film Sorter Relationship Specialty Start Date End Date Leonila Chapa MD [address] [facility] [address] [place] [address] PCP - General Family Medicine 10/15/23
--- OUTSIDE RECORDS SUMMARY | 2025-04-13 14:04 | XMS_ITS | Encounter Summary ---
Author Organization [facility] Address [address] [place] [address] Care Team Providers Care Detention Deputy Name Role Phone Leonila Chapa MD Primary Care Provider Chinmay ShannonM Unavailable [phone] Zach Ojeda Unavailable [phone] Yahaira Westfall MD Unavailable [phone] Encounter Details Date Type Department Care Team (Late st Contact Info) Description 05/21/2021 Telephone [facility] - Interventional Radiology [address] [place] [address] Cristina Guzman RN Social History Tobacco Use Types Packs/Day Years Used Date Smoking Tobacco: Never Smokeless Tobacco: Never Alcohol Use Standard Drinks/Week Comments Yes 2 (1 standard drink = 0.6 oz pur e alcohol) seldom Sex and Gender Information Value Date Recorded Sex Assigned at Not on file 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 Gender Identity Not on file Sexual Orientation Not on file documented as of this encounter Plan of Treatment Not on file documented as of this encounter Visit Diagnoses Not on filedocumented in this encounter Additional Health Concerns Infection Onset Date Last Indicated Resolved Time COVID: Suspected 03/16/2022 03/16/2022 03/16/2022 5:28 PM CDT COVID: Suspected 10/14/2023 10/14/2023 10/14/2023 3:53 AM SHIP OFFICER documented as of this encounter Care Teams Detention Deputy Relationship Specialty Start Date End Date Leonila Chapa MD [address] [facility] [address] [place] [address] PCP - General Family Medicine 12/29/17 Chinmay Shannon, SILVA [address] [place] [address] Referring Physician Foot and Ankle Surg 08/26/22 Zach Ojeda PA [address] [facility] [address] [facility] [place] [address] Orthopedic Surgery 12/06/22 Yahaira Westfall MD [address] [facility] [place] [address] Consulting Physician Internal Medicine 05/20/23 documented as of this encounter
--- OUTSIDE RECORDS SUMMARY | 2025-04-13 14:04 | XMS_ITS | Clinical Summary ---
Author Organization [facility] Address [address] [facility] [place] [address] Care Team Providers Care Doll Wigs Hackler Name Role Phone Leonila Chapa MD Primary Care Provider + Source Comments [facility],non-owned Affiliates and Associated Physician Practices is amultiple site organization consisting of ambulatory clinics and hospital sitesin [place], [place], [place] and [place]. This disclosure is being madepursuant to the Care Everywhere program and may not contain all information available regarding this patient. Last updated 18.[facility] [employer] Allergies Active Allergy Reactions Criticality Noted Date Comments Penicillins 03/19/2013 Medications * Be aware that medications may not be up to date on this document. Alwaysverify current medications with the patient. 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 Gender Identity Not on file Sexual Orientation Not on file Last Filed Vital Signs Vital Sign Reading Time Taken Comments Blood Pressure 130/64 02/11/2017 11:21 AM CDT Pulse 88 02/11/2017 11:21 AM CDT Temperature 36.8 C (98.2 F) 02/11/2017 11:21 AM CDT Respiratory Rate 16 02/11/2017 11:21 AM CDT Oxygen Saturation 95% 02/11/2017 11:21 AM CDT Inhaled Oxygen Concentration - - Weight 136.1 kg (300 lb) 02/11/2017 11:21 AM CDT Height 188 cm (6' 2) 02/11/2017 11:21 AM CDT Body Mass Index 38.52 02/11/2017 11:21 AM CDT Plan of Treatment Health Maintenance Due Date Last Done Comments DTAP/TDAP/TD VACCINES (1 - Tdap) 1964 PNEUMOCOCCAL VACCINE 50+ (1 of 1 - PCV) 12/09/1995 ZOSTER VACCINE (1 of 2) 12/09/1995 Respiratory Syncytial Virus (RSV) Vaccine Pt: or over 60 yrs (1 - 1-dose 75+ series) 2020 COVID-19 VACCINE ( - 2023-2 5 season) 2024 DEPRESSION SCREENING 10/06/2024 INFLUENZA VACCINE (Season Ended) 2025 HEPATITIS B VACCINE Aged Out No longe r eligible based on patient's age to complete this topic HIB VACCINE Aged Out No longer eligi ble based on patient's age to complete this topic HPV VACCINE Aged Out No longer eligi ble based on patient's age to complete this topic MENINGOCOCCAL (Group B) VACC INE SHARED DECISION-MAKING Aged Out No longer eligibl e based on patient's age to complete this topic MENINGOCOCCAL GROUPS A/C/Y/W VACCINE Aged Out No longer eligible b ased on patient's age to complete this topic Insurance [facility] Care Teams Doll Wigs Hackler Relationship Specialty Start Date End Date Leonila Chapa MD [address] [facility] [address] [place] [address] PCP - General Family Medicine 02/11/17
--- OUTSIDE RECORDS SUMMARY | 2025-04-13 14:04 | XMS_ITS | Encounter Summary ---
Author Organization [facility] Healthcare Address [address] [place] [address] Care Team Providers Care Production Line Technician Name Role Phone Leonila Chapa MD Primary Care Provider Chinmay ShannonM Unavailable [phone] Zach Ojeda Unavailable [phone] Yahaira Westfall MD Unavailable [phone] Encounter Details Date Type Department Care Team (Late st Contact Info) Description 05/29/2021 Telephone [facility] - Interventional Radiology [address] [place] [address] Cristina Guzman RN Social History Tobacco Use Types Packs/Day Years Used Date Smoking Tobacco: Never Smokeless Tobacco: Never Alcohol Use Standard Drinks/Week Comments Yes 2 (1 standard drink = 0.6 oz pur e alcohol) seldom Sex and Gender Information Value Date Recorded Sex Assigned at Not on file 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 Gender Identity Not on file Sexual Orientation Not on file documented as of this encounter Plan of Treatment Not on file documented as of this encounter Visit Diagnoses Not on filedocumented in this encounter Additional Health Concerns Infection Onset Date Last Indicated Resolved Time COVID: Suspected 03/16/2022 03/16/2022 03/16/2022 5:28 PM CDT COVID: Suspected 10/14/2023 10/14/2023 10/14/2023 3:53 AM FIRE ALARM MECHANIC documented as of this encounter Care Teams Production Line Technician Relationship Specialty Start Date End Date Leonila Chapa MD [address] [facility] [address] [place] [address] PCP - General Family Medicine 12/29/17 Chinmay Shannon, SILVA [address] [place] [address] Referring Physician Foot and Ankle Surg 08/26/22 Zach Ojeda PA [address] [facility] [address] [facility] [place] [address] Orthopedic Surgery 12/06/22 Yahaira Westfall MD [address] [facility] [place] [address] Consulting Physician Internal Medicine 05/20/23 documented as of this encounter
--- OUTSIDE RECORDS SUMMARY | 2025-04-13 14:04 | XMS_ITS | Referral Summary ---
Author Organization [facility] [address] Address [address] [place] [address] Care Team Providers Care Oracle Hr[employer] Developer Name Role Phone Leonila Chapa MD Primary Care Provider Chinmay ShannonM Unavailable [phone] Zach Ojeda Unavailable Yahaira Westfall MD Unavailable [phone] Encounters Date Type Department Care Team Description 04/07/2025 Telephone [facility] Cardiology [address] [facility] [address] [place] [address] Juwan Brown MD 03/22/2025 Telephone [facility] Cardiology [address] [place] [address] [address] [place] [address] Juwan Brown MD 02/22/2025 Orders Only [facility] Cardiology [address] [place] [address] [address] [place] [address] Dana Brunson MD 02/21/2025 Telephone [facility] Cardiology [address] [place] [address] [address] [place] [address] Juwan Brown MD 01/28/2025 Telephone [facility] Cardiology [address] [place] [address] [address] [place] [address] Juwan Brown MD from Last 3 Months Allergies Active Allergy Reactions Criticality Noted Date Comments Atorvastatin Other (See comments) Low Reaction: Penicillins Anaphylaxis High 03/19/2013 Bbpfcuq-Mar-Qed Reductase Inhibitors Muscle pain Medium 01/20/2018 Atorvastatin and rosuvastatin Medications BD ULTRA-FINE SHORT PEN NEEDLE 31 gauge x 5/16 needle U BID WITH LANTUS INJECTIONS 2 03/17/20 18 Active nitroglycerin (NITROSTAT) 0.[address] 1 tablet (0.4 mg total) under the tongue every 5 (five) minutes as needed for chest pain May repeat dose q 5 min, up to 3 doses total 25 tablet 04/05/20 19 Active insulin aspart (NovoLOG) 100 unit/mL (3 mL) pen for injection Inject 5-7 Units under the skin as needed Sliding scale 02/20/20 21 Active traZODone (DESYREL) 50 mg tablet Take 1 tablet (50 mg total) by mouth nightly as needed for sleep Active FreeStyle [place]hel 14 Day Sensor kit USE EVERY 14 DAYS 03/30/20 21 Active clobetasoL (CLOBEX) 0.05 % lotion Apply topically 2 (two) times a day as needed Active carvediloL (COREG) 3.125 mg tablet Take 1 tablet (3.125 mg total) by mouth 2 (two) times a day with meals 3.125mg in the morning on 6.25mg in the evening Active senna-docusate (PERICOLACE) 8.6-50 mg 1-2 times daily as needed for constipation 60 tablet 1 12/07/19 23 Active Additional Information Patient not taking.Reported on 09/21/2024 HYDROcodone-dannielle taminophen (NORCO) 5-325 mg per tabletIndicatio ns:Pain Take 1-2 tablets by mouth every 4 (four) hours as needed for pain 63 tablet 12/07/19 23 Active Additional Information Patient not taking.Reported on 09/21/2024 SEMGLEE-yfgn 100 unit/mL (3 mL) pen for injection ADMINISTER 25 UNITS UNDER THE SKIN TWICE DAILY 10/15/19 23 Active ferrous sulfate 325 mg (65 mg of elemental iron) tablet Take 1 tablet (325 mg total) by mouth daily with breakfast Active acetaminophen (TYLENOL) 325 mg tabletIndicatio ns:Pain Take 2 tablets (650 mg total) by mouth every 6 (six) hours as needed for pain 05/25/[address] (PROTONIX) 40 mg EC tablet Take 1 tablet (40 mg total) by mouth daily 90 tablet 3 08/25/20 23 Active famotidine (PEPCID) 20 mg tablet Take 1 tablet (20 mg total) by mouth 2 (two) times a day as needed for heartburn Active polysaccharide iron complex (NU-IRON) 150 mg iron capsule Take 1 capsule (150 mg total) by mouth daily 10/16/19 24 Active traMADoL (ULTRAM) 50 mg tablet Take by mouth every 6 (six) hours as needed 02/20/20 24 Active spironolactone (ALDACTONE) 25 mg tablet TAKE 1 TABLET(25 MG) BY MOUTH DAILY 30 tablet 11 06/18/20 24 Active isosorbide mononitrate ER (IMDUR) 30 mg 24 hr tablet Take 1 tablet (30 mg total) by mouth daily 30 tablet 11 07/27/20 24 025 Active furosemide (LASIX) 40 mg tabletIndicatio ns:Chronic diastolic heart failure (HCC) TAKE 1 TABLET(40 MG) BY MOUTH TWICE DAILY 180 tablet 2 09/08/20 24 Active LANTUS 100 unit/mL (3 mL) pen for injection INJECT 25 UNITS SUBCUTANEOUS TWICE DAILY 09/04/20 24 Active ranolazine ER (RANEXA) 500 mg 12 hr tabletIndicatio ns:Coronary artery disease of cachil dehe artery of c[place]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 TAKE 1 TABLET(500 MG) BY MOUTH TWICE DAILY 60 tablet 11 10/26/19 25 Active metOLazone (ZAROXOLYN) 2.5 mg tablet Take 1 tablet (2.5 mg total) by mouth daily for 10 days 10 tablet 01/29/20 25 Active evolocumab (Repatha SureClick) 140 mg/mL pen injectorIndicat ions:HOLD until follow up CBC Inject 1 mL (140 mg total) under the skin every 14 (fourteen) days 2 mL 11 03/22/20 25 Active apixaban (Eliquis) 5 mg tablet Take 1 tablet (5 mg total) by mouth 2 (two) times a day 60 tablet 07/03/20 25 Active Saccharomyces boulardii (FLORASTOR) 250 mg capsule Take 1 capsule (250 mg total) by mouth 2 (two) times a day 023 Discontin ued(Other ) Eliquis 5 mg tablet TAKE 1 TABLET(5 MG) BY MOUTH TWICE DAILY 180 tablet 2 07/05/20 24 025 Discontin ued(Reord er) evolocumab (Repatha SureClick) 140 mg/mL pen injectorIndicat ions:HOLD until follow up CBC Inject 1 mL (140 mg total) under the skin every 14 (fourteen) days 2 mL 11 09/21/20 24 025 Discontin ued(Reord er) Active Problems Problem Noted Date Diagnosed Date Pancytopenia 10/15/2023 Assessment & Plan (10/15/2023 4:30 PM PINMAKER): Newly noted, unclear etiology. Patient reports symptoms consistent with viral illness prior to admission and leading to fall. Leukopenia possibly in setting of viral illness, however anemia and thrombocytopenia unclear etiology. Iron panel, B12, Folate, retic, and ferritin unremarkable. Discussed referral to Hematology, however patient requested to follow up CBC with PCP and if still abnormal the PCP can refer him to Hematology. Fall, initial encounter 10/14/2023 Assessment & Plan (10/15/2023 4:23 PM PINMAKER): Mechanical as per history. Less likely orthostatic (though has history of 2-3 poor intake and AALIYAH), much less likely neurogenic or cardiogenic. HCT, c-spine CT, XR pelvis & L humerus without fracture and without intracranial bleed -Monitor L orbit hematoma, patient denies visual changes or headache. -PT/OT recommending home with HH AALIYAH (acute kidney injury) 10/14/2023 Assessment & Plan (10/15/2023 4:23 PM PINMAKER): Likely pre-renal in the setting of 2-3 days of N/V, and then poor intake after fall -Monitor off spironolactone and Lasix, instructed to resume 10/17 with slowly improving AALIYAH Nausea 10/14/2023 Assessment & Plan (10/15/2023 4:24 PM PINMAKER): Nausea/vomiting x2-3 days. Non bloody non bilious. Unclear etiology but more likely viral gastroenteritis. Resolved and patient tolerating diet. Leg swelling 10/14/2023 Assessment & Plan (10/15/2023 4:26 PM PINMAKER): Bilateral, L>R, chronic. Intermittent gets worse. He titrates his lasix up and down, lately 40 BID PO. 10/14/23 BNP ~1000 (similar to prior). Last TTE 2020 which was normal. He had a CABG in 2018 -likely some component lymphedema -TTE obtained with newly noted G2DD, mod LVH with EF 50-55%, marked LAE, dilated IVC with minimal collapse, new mod-severe pulmonary HTN with PASP est 65-70 mmHg and mod-severe TR. Patient without complaints of dyspnea, chest pain or shortness of breath, comfortable on RA. HFP added on and consistent with congestive hepatopathy. -Holding lasix and spironolactone with AALIYAH, patient without SOB/SKELTON. Instructed to resume 10/17 -Duplex b/l legs to r/o DVT negative (already on Eliquis) -OT for lymphedema - given list of lymphedema clinics for discharge -TSH normal HLD (hyperlipidemia) 10/14/2023 Assessment & Plan (10/14/2023 11:06 AM PINMAKER): Outpatient f/u A-fib 10/14/2023 Assessment & Plan (10/14/2023 11:08 AM PINMAKER): Chronic, continuing the home Eliquis. Based on PT and risk of repeat falls, may need risks/benefits couselling Follow-up examination 10/14/2023 Assessment & Plan (10/15/2023 4:28 PM PINMAKER): CT 10/14/23 incidentally noted a Serpiginous tubular density in the left lateral neck with associated fat stranding and multiple adjacent lymph nodes. This could represent a low-flow vascular malformation or an infectious/inflammatory process -LUE doppler obtained to rule out distal clot, negative for DVT. -Outpatient follow up for possible repeat imaging. Patient educated on image findings and need to close follow up with CTA neck once renal function improved. Hx of CABG 10/14/2023 Assessment & Plan (10/15/2023 4:28 PM PINMAKER): CABG in 2018. BNP around prior baseline, Troponin negative. TTE 2020 was ok -Continue outpatient f/u and GDMT. -Holding lasix and spironolactone with AALIYAH, instructed to resume 10/17. No SKELTON/SOB. Pancreatic cyst 08/25/2023 Anemia of unknown etiology 08/25/2023 Chronic anticoagulation 08/25/2023 Colonoscopy refused 08/25/2023 Paroxysmal atrial fibrillation 07/09/2023 Morbid (severe) obesity due to excess calories 0 06/12/2023 Status post total knee replacement, left 023 S/P total knee arthroplasty, left 12/04/2022 Arthritis of knee 12/03/2022 Chronic diastolic congestive heart failure 09/20 Primary osteoarthritis of left knee 08/14/2022 Overview (08/14/2022): Added automatically from request for surgery [id number] Pre-op evaluation 06/26/2022 Demand ischemia of myocardium 07/03/2021 Right renal mass 07/02/2021 Renal mass, right 07/02/2021 Prostate cancer 07/02/2021 Carotid atherosclerosis, bilateral 04/24/2021 Old cerebrovascular accident (CVA) without late effect 03/06/2021 Gastroesophageal reflux disease 01/27/2020 NSTEMI (non-ST elevated myocardial infarction) 0 12/22/2018 Hx of CABG 06/19/2018 Hyperlipidemia LDL goal <70 05/26/2018 CAD (coronary artery disease) 12/29/2017 DM2 (diabetes mellitus, type 2) 12/29/2017 Assessment & Plan (10/15/2023 4:22 PM PINMAKER): Uses long acting 25u BID + SSI short acting at home. -Here: Lantus 25u qAM + 7u lispro w/ meals + low dose SSI. DM consistent diet -resume home insulin regimen at discharge. Hyperlipidemia associated with type 2 diabetes m ellitus 12/29/2017 Hypertension associated with diabetes 12/29/2017 Knee pain 01/31/2016 Diabetes mellitus 05/04/2014 Overview (01/10/2017): Diabetes Dyslipidemia 05/04/2014 Overview (01/10/2017): Dyslipidemia Hypertension 05/04/2014 Overview (01/10/2017): Hypertension Obesity (BMI 30-39.9) 05/04/2014 Overview (01/10/2017): Obesity Chest pain 05/04/2014 Overview (01/10/2017): Chest pain Abnormal cardiovascular stress test 05/04/2014 Overview (01/10/2017): Abnormal stress test Immunizations Immunization Administration Dates Next Due Influenza, Quadrivalent, Hig h Dose, Preservative Free, Intrr 10/15/2023,09/16/2020 Influenza, Trivalent, Adjuvanted, Intramuscular 12/17/2019 Tdap 10/14/2023 Social History Tobacco Use Types Packs/Day Years Used Date Smoking Tobacco: Never Passive Smoke Exposure: Past Smokeless Tobacco: Never Tobacco Cessation:Counseling Given: Not Answered Alcohol Use Standard Drinks/Week Comments Yes 2 (1 standard drink = 0.6 oz pur e alcohol) seldom OASIS D0700: Social Isolation Answer Da te Recorded Frequency of experiencing loneliness or isolatio n Always 07/16/2023 OASIS A1250: Transportation Answer Date Recorded Lack of Transportation (Medical) No 07/16/2023 Lack of Transportation (Non-Medical) No 07/16/2023 Patient Unable or Declines to Respond No 07/16/2023 OASIS B1300: Health Literacy Answer Juan Antonio e Recorded Frequency of needing help to read materials from doctor or pharmacy Never 07/16/2023 AUDIT-C Answer Date Recorded Q1: How often do you have a drink containing alc ohol? Never 09/24/2023 Average Number of Drinks Not on file 023 Frequency of Binge Drinking Not on file 09/06 PHQ-2 Answer Date Recorded PHQ-2 Total Score (If total score is 3 or more points, staff should administer the PHQ-9) 0 12/03/2022 Personal Safety Answer Date Recorded Have you ever been in or are you currently in a harmful physical or emotional relationship or is someone making you feel afraid or unsafe? Denies 10/14/2023 Sex and Gender Information Value Date Recorded Sex Assigned at Not on file Legal Sex Male 7:32 PM PINMAKER Gender Identity Not on file Sexual Orientation Not on file Last Filed Vital Signs Vital Sign Reading Time Taken Comments Blood Pressure 90/60 09/21/2024 1:37 PM PINMAKER Pulse 87 09/21/2024 1:37 PM PINMAKER Temperature 36.2 C (97.2 F) 10/15/2023 3:35 PM PINMAKER Respiratory Rate 18 10/15/2023 8:00 AM PINMAKER Oxygen Saturation 96% 09/21/2024 1:37 PM PINMAKER Inhaled Oxygen Concentration - - Weight 129.7 kg (286 lb) 09/21/2024 1:37 PM PINMAKER Height 185.4 cm (6' 1) 09/21/2024 1:37 PM PINMAKER Body Mass Index 37.73 09/21/2024 1:37 PM PINMAKER Plan of Treatment Not on file Medical Devices Implanted Type Area Quality Liaison Device Identifier Shelf Expiration Date Model / Serial / Lot [employer]ig [employer] [id number] Angio-Seal Vip Bondek-Plus 6fr .035in 70cm Hemostatic Latex Free - [id number] Implanted:Qty: 1 on 01/06/2019 by Sanjiv Starkey MD at [facility] Right: Groin [employer] 08/05/2019 [id number] / / [id number] [employer] Misael Angio-Seal Vip 6fr Closere Device [id number] - [id number] Implanted:Qty: 1 on 08/07/2022 by Sanjiv Starkey MD at [facility] [employer] 03/05/2023 [id number] / / [id number] [employer] Cement Bone Simplex Gentamicin High Viscosity 40gm 6195-1-001 - [id number] Implanted:Qty: 1 on 12/03/2022 by Thuan Servin MD at [facility] Left: Knee [employer] 05/05/2024 [id number] / / [id number] [employer] Attune Cruciate Retain Cementless Knee Left 9 Component Femoral [id number] - [id number] Implanted:Qty: 1 on 12/03/2022 by Thuan Servin MD at [facility] Left: Knee [employer] 06/05/2031 [id number] / / [id number] [employer] Attune 41mm Cemented Medialize Knee Dome Patellar Aox Sterile [id number] - [id number] Implanted:Qty: 1 on 12/03/2022 by Thuan Servin MD at [facility] Left: Knee [employer] 03/05/2027 [id number] / / [id number] [employer] Attune 10mm Cruciate Retaining Fix Bearing Knee 9 Insert Tibial [id number] - [id number] Implanted:Qty: 1 on 12/03/2022 by Thuan Servin MD at [facility] Left: Knee [employer] 08/05/2027 [id number] / / [id number] 1506-21-010 Attune Tibial Base Affixium Fixed Bearing Size 10 Implanted:Qty: 1 on 12/03/2022 by Thuan Servin MD at [facility] Left: Knee [employer] [id number] 09/04/2032 [id number] / N/A / [id number] Procedures Procedure Name Priority Date/Time Associated Diagnosis Comments LIPID PANEL Routine 12/06/2024 1:28 PM PINMAKER EGFR Routine 10/15/2023 5:48 AM PINMAKER HEMOGLOBIN A1C STAT 10/14/2023 2:19 AM PINMAKER COLONOSCOPY 09/24/2023 2:16 PM PINMAKER from Last 3 Months or Most Recently Relevant to Health Maintenance Results * (ABNORMAL) Lipid panel (12/06/2024 1:28 PM PINMAKER) SCRIBED Cholesterol, Total 107 30 - 199 mg/dL [facility] SCRIBED Triglycerides 75 <=149 mg/dL [facility] SCRIBED HDL 37(A) >=40 mg/dL [facility] SCRIBED LDL 54 <=129 mg/dL [facility] Scribed Non-HDL Cholesterol 70 NONE mg/dL [facility] SCRIBED Total Cholesterol/HDL Ratio 107 NONE [facility] Blood Dana Brunson MD LAB BLOOD ORDERABLES Edit ed Result - Final [facility] * (ABNORMAL) eGFR (10/15/2023 5:48 AM PINMAKER) eGFR 48(L) >=60 mL/min/1. 73 m2 [facility] Comment: Interpretive Data Reference Interval Normal >/= 90 mL/min/1.73m2 Mildly decreased* 60 - 89 mL/min/1.73m2 Mildly to moderately decreased 45 - 59 mL/min/1.73m2 Moderately to severely decreased 30 - 44 mL/min/1.73m2 Severely decreased 15 - 29 mL/min/1.73m2 Kidney Failure < 15 mL/min/1.73m2 *Relative to young adult level Estimated glomerular filtration rate is determined by the 2020 CKD-EPI equation recommended by the National Kidney Foundation (A Unifying Approach to GFR Estimation: Recommendations of the NKF-ASK Task Force on Reassessing the Inclusion of Race in Diagnosing Kidney Disease, JASN 2020). The CKD-EPI equation should not be used for patients with unstable renal function and has not been validated in children and those over 70. Current interpretive data was last reviewed 2021. Blood 10/15/2023 5:48 AM PINMAKER 10/15/2023 6:08 AM PINMAKER Andrade Conti MD LAB BLOOD ORDERABLES Martha l Result [facility] [address] [facility] [place] [address] * (ABNORMAL) Hemoglobin A1c (10/14/2023 2:19 AM PINMAKER) Hgb A1C 6.4(H) 4.0 - 5.6 % [facility] Estimated Average Glucose 137 mg/dL [facility] Comment: The ADA recommends reporting an estimated Average Glucose (eAG) with all Hemoglobin A1c results using the equation derived from a study of 507 normal and diabetic adults. Minority populations were underrepresented and children were not included. (Diabetes Care 2020; 43(S1): S66-S76). The eAG is not equivalent to a fasting glucose. Blood 10/14/2023 2:19 AM PINMAKER 10/14/2023 2:28 AM PINMAKER us Maribell Basilio MD LAB BLOOD ORDERABLES Final Result [facility] [address] [facility] Department [place] [address] * COLONOSCOPY (09/24/2023 2:16 PM PINMAKER) Anatomical Region Laterality Modality Other Narrative Procedure Note Alli Ervin MD - 09/24/2023 2:16 PM [facility] Patient Name: Carl Guzman Procedure Date: 09/24/2023 2:16 PM Date of : 1945 Admit Type: Outpatient Age: 77 Gender: Male Attending MD: Alli Ervin M.D. Room: [facility] ENDOSCOPY ROOM 9 Note Status: Finalized Procedure: Colonoscopy Indications: Iron deficiency anemia Referring MD: Jonathan Haywood Providers: Alli Ervin M.D. Comorbidities See the other procedure note for documentation of comorbidities Medicines: Monitored Anesthesia Care Complications: No immediate complications. Estimated Blood Loss: Estimated blood loss: none. Procedure: Pre-Anesthesia Assessment: - Prior to the procedure, a History and Physicalwas performed, and patient medications, allergies and sensitivities were reviewed. The patient'stolerance of previous anesthesia was reviewed. - Immediately prior to administration ofmedications, the patient was re-assessed for adequacy to receive sedatives. - The risks and benefits of the procedure and the sedation options and risks were discussed with the patient. All questions were answered and informed consent was obtained. The benefits, risks and alternatives of theprocedure and sedation were discussed and informed consentwas obtained. All questions were answered. Please referto the signed informed consent document in the medical record. The scope was passed under direct vision.The CF [id number] endoscope was introduced through the anus and advanced to the cecum, identified by appendiceal orifice and ileocecal valve. The colonoscopy was performed without difficulty. The patient tolerated the procedure well. The qualityof the bowel preparation was evaluated using the BBPS ([place] Bowel Preparation Scale) with scores of:Right Colon = 2 (minor amount of residual staining, small fragments of stool and/or opaque liquid, but mucosa seen well), Transverse Colon = 2 (minor amount of residual staining, small fragments of stool and/or opaque liquid, but mucosa seen well) and Left Colon= 2 (minor amount of residual staining, smallfragments of stool and/or opaque liquid, but mucosa seenwell). The total BBPS score equals 6. The bowelpreparation used was GoLYTELY via split dose instruction. The quality of the bowel preparation was fair. Findings: The perianal and digital rectal examinations were normal. A large amount of semi-liquid stool was found in the entire colon, interfering with visualization. Lavage and suctioning of the area was performed, resulting in clearance with fair visualization. Non-bleeding internal hemorrhoids were found during retroflexion. Impression: - A large amount of semi-liquid stool was found inthe entire colon, interfering with visualization.Lavage and suctioning of the area was performed, resultingin clearance with fair visualization. - Non-bleeding internal hemorrhoids. Recommendation: - The patient will be observed post-procedure,until all discharge criteria are met. - Follow up with referring physician as previously scheduled. Attending Participation: I personally performed the entire procedure. Electronically signed by Alli Ervin MD Alli Ervin M.D. 09/24/2023 2:45:39 PM . Number of Addenda: 0 Note Initiated On: 09/24/2023 2:16 PM Recognized by the [employer] for promoting quality in endoscopy Alli Ervin MD ENDOSCOPY PROCEDURES Final Result from Last 3 Months or Most Recently Relevant to Health Maintenance Insurance [facility] MEDICARE [place]ICARE [place] [facility] OTHER Address: [address] [place] [address] [facility] MEDICARE MEDICARE MEDICARE [id number] [place] MEDICARE [place] Advance Directives For more information, please contact: [phone] Documents on File Type Date Recorded 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 08/15/2021 7:19 AM * Full Code (Latest Code Status on File) Date Activated Date Inactivated Comments 10/14/2023 8:55 AM 10/15/2023 10:48 PM * Full Code Date Activated Date Inactivated Comments 09/24/2023 1:08 PM 09/24/2023 8:05 PM * Full Code Date Activated Date Inactivated Comments 12/03/2022 5:08 PM 12/06/2022 6:14 PM * Full Code Date Activated Date Inactivated Comments 08/07/2022 9:44 AM 08/07/2022 6:13 PM * Full Code Date Activated Date Inactivated Comments 07/02/2021 7:45 PM 07/04/2021 5:17 PM Healthcare Agents on File Name Relationship Healthcare Agent Relationshi p Communication Liliana Butler Daughter Health Care Agent Care Teams Oracle Hrms Developer Relationship Specialty Start Date End Date Leonila Chapa MD [address] [facility] [address] [place] [address] PCP - General Family Medicine 12/29/17 Chinmay Shannon DPM [address] [place] [address] Referring Physician Foot and Ankle Surg 08/26/22 Zach Ojeda PA [address] [facility] [address] [place] [address] Orthopedic Surgery 12/06/22 Yahaira Westfall MD [address] [facility] [place] [address] Consulting Physician Internal Medicine 05/20/23
--- OUTSIDE RECORDS SUMMARY | 2025-04-13 14:04 | XMS_ITS | Encounter Summary ---
Author Organization [facility] Home Care Servic es Address [address] [place] [address] Phone Care Team Providers Care Cosmetics Presser Name Role Phone Leonila Chapa MD Primary Care Provider Chinmay Shannon DPM Unavailable [phone] Zach Ojeda Unavailable [phone] Yahaira Westfall MD Unavailable [phone] Encounter Details Date Type Department Care Team (Late st Contact Info) Description 05/20/2023 Telephone [facility] Home Care Services [address] [place] [address] Maureen Perez RN Social History Tobacco Use Types Packs/Day Years Used Date Smoking Tobacco: Never Passive Smoke Exposure: Past Smokeless Tobacco: Never Alcohol Use Standard Drinks/Week Comments Yes 2 (1 standard drink = 0.6 oz pur e alcohol) seldom AUDIT-C Answer Date Recorded Q1: How often do you have a drink containing alcohol? Monthly or less 12/03/2022 Q2: How many drinks containi ng alcohol do you have on a typical day when you are drinking? Patient does not drink Frequency of Binge Drinking Not on file 11/07 PHQ-2 Answer Date Recorded PHQ-2 Total Score (If total score is 3 or more points, staff should administer the PHQ-9) 0 12/03/2022 Sex and Gender Information Value Date Recorded Sex Assigned at Not on file Legal Sex Male 7:32 PM LOGISTICS ENGINEER Gender Identity Not on file Sexual Orientation Not on file COVID-19 Exposure Response Date Recorded In the last 10 days, have yo u been in contact with someone who was confirmed or suspected to have Coronavirus/COVID-19? No / Unsure 05/23/2023 4:06 PM CDT documented as of this encounter Plan of Treatment Not on file documented as of this encounter Visit Diagnoses Not on filedocumented in this encounter Additional Health Concerns Infection Onset Date Last Indicated Resolved Time COVID: Suspected 10/14/2023 10/14/2023 10/14/2023 3:53 AM LOGISTICS ENGINEER documented as of this encounter Care Teams Cosmetics Presser Relationship Specialty Start Date End Date Leonila Chapa MD [address] [facility] [address] [place] [address] PCP - General Family Medicine 12/29/17 Chinmay Shannon DPM [address] [place] [address] Referring Physician Foot and Ankle Surg 08/26/22 Zach Ojeda PA [address] [address] Orthopedic Surgery 12/06/22 Yahaira Westfall MD [address] [address] Consulting Physician Internal Medicine 05/20/23 documented as of this encounter
--- OUTSIDE RECORDS SUMMARY | 2025-04-13 14:04 | XMS_ITS | Encounter Summary ---
Author Organization [facility] Healthcare Address [address] [place] [address] Care Team Providers Care Assistant Librarian Name Role Phone Leonila Chapa MD Primary Care Provider Chinmay ShannonM Unavailable [phone] Zach Ojeda Unavailable [phone] Yahaira Westfall MD Unavailable [phone] Encounter Details Date Type Department Care Team (Late st Contact Info) Description 06/29/2021 Telephone [facility] - Interventional Radiology [address] [place] [address] Cristina Guzman RN Social History Tobacco Use Types Packs/Day Years Used Date Smoking Tobacco: Never Smokeless Tobacco: Never Alcohol Use Standard Drinks/Week Comments Yes 2 (1 standard drink = 0.6 oz pur e alcohol) seldom Sex and Gender Information Value Date Recorded Sex Assigned at Not on file Legal Sex Male 7:32 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 Gender Identity Not on file Sexual Orientation Not on file documented as of this encounter Plan of Treatment Not on file documented as of this encounter Visit Diagnoses Not on filedocumented in this encounter Additional Health Concerns Infection Onset Date Last Indicated Resolved Time COVID: Suspected 03/16/2022 03/16/2022 03/16/2022 5:28 PM CDT COVID: Suspected 10/14/2023 10/14/2023 10/14/2023 3:53 AM MARINE SERVICES TECHNICIAN documented as of this encounter Care Teams Assistant Librarian Relationship Specialty Start Date End Date Leonila Chapa MD [address] [facility] [address] [place] [address] PCP - General Family Medicine 12/29/17 Chinmay Shannon, SILVA [address] [place] [address] Referring Physician Foot and Ankle Surg 08/26/22 Zach Ojeda PA [address] [facility] [address] [facility] [place] [address] Orthopedic Surgery 12/06/22 Yahaira Westfall MD [address] [facility] [address] [place] [address] Consulting Physician Internal Medicine 05/20/23 documented as of this encounter
--- OUTSIDE RECORDS SUMMARY | 2025-04-13 14:04 | XMS_ITS | Clinical Summary ---
Author Organization [facility] Address [address] [place] [address] Care Team Providers Care Doctor Of Nursing Practice Name Role Phone Leonila Chapa MD Primary Care Provider [phone] Social History Tobacco Use Types Packs/Day Years Used Date Smoking Tobacco: Never Assessed Sex and Gender Information Value Date Recorded Sex Assigned at Not on file Legal Sex Male 8:04 AM CDT Gender Identity Not on file Sexual Orientation Not on file Plan of Treatment Health Maintenance Due Date Last Done Comments Hepatitis C 12/09/1963 Pneumococcal Vaccine: 50+ Years (1 of 1 - PCV) 12/09/1995 Zoster Vaccines (1 of 2) 12/09/1995 Annual Medicare Wellness Visit 2010 RSV Immunization or 60+ Years (1 - 1-dose 75+ series) 2020 COVID-19 Vaccine ( - season) 2024 09/05/2022, 08/22/2021, 12/18/2020, Additional history exists DTaP, Tdap and Td Vaccines (2 - Td or Tdap) 10/14/2033 10/14/2023 Meningococcal B Vaccine Aged Out No l onger eligible based on patient's age to complete this topic Meningococcal Vaccine Aged Out No chava rosita eligible based on patient's age to complete this topic RSV Immunizations Under 20 Months Aged Out No longer eligible based on patient's age to complete this topic Insurance [facility] Care Teams Doctor Of Nursing Practice Relationship Specialty Start Date End Date Leonila Chapa MD [address] [facility] [address] [place] [address] PCP - General FAMILY PRACTICE 06/22/24
--- OUTSIDE RECORDS SUMMARY | 2025-04-13 14:04 | XMS_ITS | Encounter Summary ---
Author Organization [facility] Healthcare Address [address] [place] [address] Care Team Providers Care Wildland Firefighter Name Role Phone Leonila Chapa MD Primary Care Provider Chinmay Shannon DPM Unavailable [phone] Zach Ojeda Unavailable Yahaira Westfall MD Unavailable [phone] Encounter Details Date Type Department Care Team (Late st Contact Info) Description 06/28/2021 Telephone [facility] - Interventional Radiology [address] [place] [address] Cristina Guzman RN Social History Tobacco Use Types Packs/Day Years Used Date Smoking Tobacco: Never Smokeless Tobacco: Never Alcohol Use Standard Drinks/Week Comments Yes 2 (1 standard drink = 0.6 oz pur e alcohol) seldom Sex and Gender Information Value Date Recorded Sex Assigned at Not on file 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 Testing performed by the [facility] Molecular Infectious Disease Laboratory. The 2019-Novel Coronavirus Assay (COVID-19) Real Time RT-PCR assay is for in vitro diagnostic use under FDA emergency use authorization only. A negative RT-PCR result does not preclude infection with COVID-19 and should not be used as the sole basis for treatment or other patient management decisions. Additional sample types have been validated according to CLIA regulations. Current Interpretive Data was last revised on November 09, 2020. Testing performed by: [facility], [address] [place] [address], [id number] First COVID-19 test? Unknown [facility] Comment:Testing performed by : [facility], [address] [place] [address], [id number] Employeed in healthcare? No [facility] Comment:Testing performed by : [facility], [address] [place] [address], [id number] status? No [facility] Comment:Testing performed by : [facility], [address] [place] [address], [id number] Group care resident? No [facility] Comment:Testing performed by : [facility], [address] [place] [address], [phone] Hospitalized? No [facility] Comment:Testing performed by : [facility], [address] [place] [address], [id number] Is patient in ICU? No [facility] Comment:Testing performed by : [facility], [address] [place] [address], [id number] Symptomatic as defined by CDC? No [facility] Comment:Testing performed by : [address], [address] Nasopharyngeal 06/29/2021 2: 00 PM CDT 06/29/2021 4:51 PM CDT Brianna [facility] - 06/29/2021 9:35 PM CDT What is the reason for testing?->Screening prior to scheduled procedure or surgery (batch) Nestor Whittington MD LAB MICROBIOLOGY - GENERA L ORDERABLES Final Result Performing Organization Address [facility]/ZIP Co de Phone Number [facility] [address] Department [place] [address] * Protime-INR (06/29/2021 12:12 PM CDT) Pathologist [facility] PT 12.4 9.5 - 13.6 sec [facility] INR 1.1 0.9 - 1.2 [facility] Comment: Interpretive data Oral anticoagulant therapeutic ranges: Venous thromboembolism prophylaxis or treatment: 2.0-3.0 CARDIOLOGY Standard range: 2.0-3.0 High-intensity range: 2.5-3.5 Refer to indication-specific guidelines for appropriate target ranges for prosthetic heart valve replacement. Current interpretive data was last revised on 2019. Blood 06/29/2021 12:1 2 PM CDT 06/29/2021 12:12 PM CDT Nestor Whittington MD LAB BLOOD ORDERABLES Martha l Result Performing Organization Address [facility] Co de Phone Number [facility] [address] Department [place] [address] * (ABNORMAL) CBC with auto differential (06/29/2021 12:12 PM CDT) Pathologist [facility] WBC 3.8 3.8 - 9.9 K/cumm [facility] Hgb 10.8(L) 13.0 - 17.5 g/dL [facility] Hct 34.0(L) 38.9 - 50.3 % [facility] Plt 154 150 - 400 K/cumm [facility] MPV 9.2 9.1 - 12.3 fL [facility] RBC 3.47(L) 4.30 - 5.80 M/cumm [facility] MCV 98.0(H) 81.3 - 96.4 fL [facility] MCH 31.1 27.1 - 33.3 pg [facility] MCHC 31.8(L) 32.3 - 35.7 g/dL [facility] RDW CV 14.2 11.1 - 14.9 % [facility] RDW SD 50.5(H) 35.7 - 48.1 fL [facility] NRBC abs 0.00 0.00 - 0.01 K/cumm [facility] Blood 06/29/2021 12:1 2 PM CDT 06/29/2021 12:12 PM CDT us Nestor Whittington MD LAB BLOOD ORDERABLES Martha l Result [facility] [address] Department [place] [address] * (ABNORMAL) Basic metabolic panel (06/29/2021 12:12 PM CDT) Sodium 142 135 - 145 mmol/L [facility] Potassium, pl 4.2 3.3 - 4.9 mmol/L [facility] Chloride 102 97 - 110 mmol/L [facility] CO2 35(H) 22 - 32 mmol/L [facility] Anion gap 5 2 - 15 mmol/L [facility] BUN 18 8 - 25 mg/dL [facility] Creatinine 1.13 0.80 - 1.30 mg/dL [facility] Glucose 145 70 - 199 mg/dL [facility] Comment: Interpretive Data Fasting glucose >/= 126 mg/dl is diagnostic for diabetes. Fasting is defined as no caloric intake for at least 8 hours. Fasting glucose between 100 mg/dl to 125 mg/dl is diagnostic of prediabetes. In a patient with classic symptoms of hyperglycemia or hyperglycemic crisis, a random glucose >/= 200 mg/dl is diagnostic for diabetes. In the absence of unequivocal hyperglycemia, results should be confirmed by repeat testing. The classification and Diagnosis of Diabetes Diabetes Care 2017;40 (Suppl. 1):S11. Current interpretive data was last revised 2017. Calcium 9.1 8.5 - 10.3 mg/dL [facility] Blood 06/29/2021 12:1 2 PM CDT 06/29/2021 12:12 PM CDT Nestor Whittington MD LAB BLOOD ORDERABLES Martha l Result [facility] [address] Department [place] [address] documented in this encounter Visit Diagnoses Diagnosis Right renal mass- Primary Unspecified disorder of kidney and ureter Right renal mass Unspecified disorder of kidney and ureter documented in this encounter Additional Health Concerns Infection Onset Date Last Indicated Resolved Time COVID: Suspected 03/16/2022 03/16/2022 03/16/2022 5:28 PM CDT COVID: Suspected 10/14/2023 10/14/2023 10/14/2023 3:53 AM SUPERVISOR ROVING 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
--- OUTSIDE RECORDS SUMMARY | 2025-04-13 14:04 | XMS_ITS ---
Author Organization [facility] [address] Address [address] [place] [address] Care Team Providers Care Event Attendant Name Role Phone Leonila Chapa MD Primary Care Provider Chinmay Shannon DPM Unavailable [phone] Zach Ojeda Unavailable [phone] Yahaira Westfall MD Unavailable Active Problems Problem Noted Date Diagnosed Date Pancytopenia 10/15/2023 Assessment & Plan (10/15/2023 4:30 PM HEALTH EDUCATION ASSISTANT): Newly noted, unclear etiology. Patient reports symptoms [...] 10/14/2023 Assessment & Plan (10/15/2023 4:23 PM HEALTH EDUCATION ASSISTANT): Mechanical as per history. Less likely orthostatic (though has history of 2-3 poor intake and AALIYAH), much less likely neurogenic or cardiogenic. HCT, c-spine CT, XR pelvis & L humerus without fracture and without intracranial bleed -Monitor L orbit hematoma, patient denies visual changes or headache. -PT/OT recommending home with HH AALIYAH (acute kidney injury) 10/14/2023 Assessment & Plan (10/15/2023 4:23 PM HEALTH EDUCATION ASSISTANT): Likely pre-renal in the setting of 2-3 days of N/V, and then poor intake after fall -Monitor off spironolactone and Lasix, instructed to resume 10/17 with slowly improving AALIYAH Nausea 10/14/2023 Assessment & Plan (10/15/2023 4:24 PM HEALTH EDUCATION ASSISTANT): Nausea/vomiting x2-3 days. Non bloody non bilious. Unclear etiology but more likely viral gastroenteritis. Resolved and patient tolerating diet. Leg swelling 10/14/2023 Assessment & Plan (10/15/2023 4:26 PM HEALTH EDUCATION ASSISTANT): Bilateral, L>R, chronic. Intermittent gets worse. He [...] 10/14/2023 Assessment & Plan (10/14/2023 11:06 AM HEALTH EDUCATION ASSISTANT): Outpatient f/u A-fib 10/14/2023 Assessment & Plan (10/14/2023 11:08 AM HEALTH EDUCATION ASSISTANT): Chronic, continuing the home Eliquis. Based on PT and risk of repeat falls, may need risks/benefits couselling Follow-up examination 10/14/2023 Assessment & Plan (10/15/2023 4:28 PM HEALTH EDUCATION ASSISTANT): CT 10/14/23 incidentally noted a Serpiginous tubular [...] 10/14/2023 Assessment & Plan (10/15/2023 4:28 PM HEALTH EDUCATION ASSISTANT): CABG in 2018. BNP around prior baseline, [...] (08/14/2022): Added automatically from request for surgery [id number] Pre-op evaluation 06/26/2022 Demand ischemia of myocardium [...] 12/29/2017 Assessment & Plan (10/15/2023 4:22 PM HEALTH EDUCATION ASSISTANT): Uses long acting 25u BID + SSI [...] test 05/04/2014 Overview (01/10/2017): Abnormal stress test Current Treatment and Therapy Plans No current plan information found. Past Treatment and Therapy Plans No past plan information found. Lifetime Dose Tracking * Chemical Lifetime Dose Automatic Entry Manual Entr y Air kerma at the reference point (Ka,r) 3,533 mGy 8 73 mGy 2,660 mGy DLP 1,281 mGycm 1,281 mGycm 0 mGycm
--- OUTSIDE RECORDS SUMMARY | 2025-04-13 14:04 | XMS_ITS | Clinical Summary ---
Author Organization [facility] [address] Address [address] [place] [address] Care Team Providers Care Borematic Operator Name Role Phone Leonila Chapa MD Primary Care Provider Chinmay Shannon DPM Unavailable [phone] Zach Ojeda Unavailable Yahaira Westfall MD Unavailable [phone] Allergies Active Allergy Reactions Criticality Noted Date Comments Atorvastatin Other (See comments) Low Reaction: Penicillins Anaphylaxis High 03/19/2013 Qlawstm-Gfv-Vzq Reductase Inhibitors Muscle pain Medium 01/20/2018 Atorvastatin [...] 12 hr tabletIndicatio ns:Coronary artery disease of [place] artery of [place] heart with stable angina pectoris TAKE 1 [...] 2 (two) times a day 60 tablet 04/07/20 25 Active Saccharomyces boulardii (FLORASTOR) 250 mg [...] 10/15/2023 Assessment & Plan (10/15/2023 4:30 PM DIRECTOR COUNCIL ON AGING): Newly noted, unclear etiology. Patient reports symptoms [...] 10/14/2023 Assessment & Plan (10/15/2023 4:23 PM DIRECTOR COUNCIL ON AGING): Mechanical as per history. Less likely orthostatic (though has history of 2-3 poor intake and AALIYAH), much less likely neurogenic or cardiogenic. HCT, c-spine CT, XR pelvis & L humerus without fracture and without intracranial bleed -Monitor L orbit hematoma, patient denies visual changes or headache. -PT/OT recommending home with HH AALIYAH (acute kidney injury) 10/14/2023 Assessment & Plan (10/15/2023 4:23 PM DIRECTOR COUNCIL ON AGING): Likely pre-renal in the setting of 2-3 days of N/V, and then poor intake after fall -Monitor off spironolactone and Lasix, instructed to resume 10/17 with slowly improving AALIYAH Nausea 10/14/2023 Assessment & Plan (10/15/2023 4:24 PM DIRECTOR COUNCIL ON AGING): Nausea/vomiting x2-3 days. Non bloody non bilious. Unclear etiology but more likely viral gastroenteritis. Resolved and patient tolerating diet. Leg swelling 10/14/2023 Assessment & Plan (10/15/2023 4:26 PM DIRECTOR COUNCIL ON AGING): Bilateral, L>R, chronic. Intermittent gets worse. He [...] 10/14/2023 Assessment & Plan (10/14/2023 11:06 AM DIRECTOR COUNCIL ON AGING): Outpatient f/u A-fib 10/14/2023 Assessment & Plan (10/14/2023 11:08 AM DIRECTOR COUNCIL ON AGING): Chronic, continuing the home Eliquis. Based on PT and risk of repeat falls, may need risks/benefits couselling Follow-up examination 10/14/2023 Assessment & Plan (10/15/2023 4:28 PM DIRECTOR COUNCIL ON AGING): CT 10/14/23 incidentally noted a Serpiginous tubular [...] 10/14/2023 Assessment & Plan (10/15/2023 4:28 PM DIRECTOR COUNCIL ON AGING): CABG in 2018. BNP around prior baseline, [...] (08/14/2022): Added automatically from request for surgery [id number] Pre-op evaluation 06/26/2022 Demand ischemia of myocardium [...] 12/29/2017 Assessment & Plan (10/15/2023 4:22 PM DIRECTOR COUNCIL ON AGING): Uses long acting 25u BID + SSI [...] test 05/04/2014 Overview (01/10/2017): Abnormal stress test Encounters Date Type Department Care Team Description 04/07/2025 Telephone [facility] Cardiology [address] [place] [address] Juwan Brown MD 03/22/2025 Telephone [facility] Cardiology [address] [place] [phone] Juwan Brown MD 02/22/2025 Orders Only [facility] Cardiology [address] [place] [phone] ProviderDana MD 02/21/2025 Telephone [facility] Cardiology [address] [place] [address] [address] [place] [phone] Juwan Brown MD 01/28/2025 Telephone [facility] Cardiology [address] [place] [phone] Juwan Brown MD from Last 3 Months Immunizations Immunization Administration Dates Next Due Influenza, Quadrivalent, Hig h Dose, Preservative Free, Intrr 10/15/2023,09/16/2020 Influenza, Trivalent, Adjuvanted, Intramuscular 12/17/2019 Tdap 10/14/2023 Surgical History Surgery Date Site/Laterality Comments CORONARY ANGIOPLASTY CARDIAC STENT PLACEMENT CARDIAC CATHETERIZATION SKIN GRAFT Left left leg CORONARY ARTERY BYPASS GRAFT 10/06/2017 - 10/05/2018 x3 OTHER SURGICAL HISTORY Right tumors removed from kidney COLONOSCOPY UPPER GASTROINTESTINAL ENDOSCOPY Medical History Medical History Date Comments Hx Other Medical HTN, obesity, h igh cholesterol, DM, gastritis, his; Comments: MAF 05/04/2014 - Hypertension Acid indigestion Asthma Type 2 diabetes mellitus (HCC) Hyperlipidemia GERD (gastroesophageal reflu x disease) Gastritis Arthritis History of transfusion 08/14/1967 Dyspnea on exertion Coronary artery disease Sleep apnea Knee pain Acquired short leg syndrome left leg PONV (postoperative nausea a nd vomiting) <1965 Ether anesthesia Carotid artery disease 03/06/2021 MRI showe d total occlusion of distal right vertebral artery and moderate stenosis of internal carotid arteries Stroke (HCC) 03/06/2021 Incidental findi ng of small old infarcts in right cerebellum on brain MRI Motion sickness History of kidney cancer Prostate cancer (HCC) Hx of radiation therapy Anemia Heart disease Triple by pass 2018 Chronic kidney disease 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, Infection Left leg several debi es last 50 yrs Pancreas cyst Family History Medical History Relation Name Comments Coronary artery disease Brother 1 Colby Jose nary artery disease; Heart attack Brother 1 Colby Alcohol abuse Brother 2 Irving Heart attack Brother 2 Irving Stroke Brother 2 Irving Alcohol abuse Brother 3 Simeon Early Brother 3 Simeon Alcohol abuse Father Colby Early Father Colby Heart attack Father Colby Myocardial infa rction; Cause of : Myocardial infarction Cancer Maternal Grandmother Elfego Allergy (severe) Mother Maira Heart failure Mother Maira Congestive hea rt failure; Cause of : Congestive heart failure Other Mother Maira Pacemaker; Stroke Sister Leigh Allergy (severe) Son Randy Coronary artery disease Son Randy Jose nary artery disease; Early Son Randy Hypertension Son Randy Relation Name Status Comments Brother 1 Colby (Age 61) Brother 2 Irving (Age 70) Brother 3 Simeon Father Colby (Age 52) Maternal Grandmother Elfego Mother Maira (Age 79) Sister Leigh (Age 75) Son Randy Social History Tobacco Use Types Packs/Day Years [...] on file Legal Sex Male 7:32 PM DIRECTOR COUNCIL ON AGING Gender Identity Not on file Sexual Orientation Not on file Obstetrics History Last Filed Vital Signs Vital Sign Reading Time Taken Comments Blood Pressure 90/60 09/21/2024 1:37 PM DIRECTOR COUNCIL ON AGING Pulse 87 09/21/2024 1:37 PM DIRECTOR COUNCIL ON AGING Temperature 36.2 C (97.2 F) 10/15/2023 3:35 PM DIRECTOR COUNCIL ON AGING Respiratory Rate 18 10/15/2023 8:00 AM DIRECTOR COUNCIL ON AGING Oxygen Saturation 96% 09/21/2024 1:37 PM DIRECTOR COUNCIL ON AGING Inhaled Oxygen Concentration - - Weight 129.7 kg (286 lb) 09/21/2024 1:37 PM DIRECTOR COUNCIL ON AGING Height 185.4 cm (6' 1) 09/21/2024 1:37 PM DIRECTOR COUNCIL ON AGING Body Mass Index 37.73 09/21/2024 1:37 PM DIRECTOR COUNCIL ON AGING Plan of Treatment Health Maintenance Due Date Last Done Comments Albumin Creatinine Ratio, Urine 1945 Hepatitis C Screening 1945 Dilated Eye Exam 1945 Foot Exam 1945 Hepatitis B Screening 12/09/1963 Pneumococcal vaccine 65+ (1 of 2 - PCV) 1964 Zoster Vaccine (1 of 2) 12/09/1995 Well Visit 65+ 2010 Depression Screening 08/14/2023 08/14/2022 Hemoglobin A1C 04/13/2024 10/14/2023, 06/2024, 11/05/2022, Additional history exists Covid-19 Vaccine (4 - 2023-2 5 season) 2024 08/22/2021, 12/18/2020, 11/27/2020 Fall Risk Assessment 10/15/2024 10/15/2023, 08/03/2020, 05/05/2020 eGFR 10/15/2024 10/15/2023, 0 06/2024, 09/18/2023, Additional history exists Influenza Vaccine (#1) 2025 , 09/16/2020, 12/17/2019 Lipid Panel 12/06/2025 12/06/2024, 0 12/2023, 11/07/2023, Additional history exists DTaP/Tdap/Td Vaccine (2 - Td or Tdap) 10/14/2033 10/14/2023 Colon Cancer Screening-CT Colonography Discontinued 09/24/2023 Colon Cancer Screening-Colonoscopy Discontinued 09/24/2023 Colon Cancer Screening-DNA Stool Discontinued 09/24/20 Colon Cancer Screening-FIT Discontinued 09/24/2023 Colon Cancer Screening-FOBT Discontinued 09/24/2023 Colon Cancer Screening-Sigmoidoscopy Discontinued 09/24/2023 Colorectal Cancer Screening Discontinued Medical Devices Implanted Type Area Commercial Construction Superintendent Device Identifier Shelf Expiration Date Model / Serial / Lot [employer]ig [employer] [id number] Angio-Seal Vip Bondek-Plus 6fr .035in 70cm Hemostatic Latex Free - [id number] Implanted:Qty: 1 on 01/06/2019 by Sanjiv Starkey MD at [facility] Right: Groin [employer] 08/05/2019 [id number] / / [id number] [facility] [employer] Misael Angio-Seal Vip 6fr Closere Device [id number] - [id number] Implanted:Qty: 1 on 08/07/2022 by Sanjiv Starkey MD at [facility] [employer] Misael 03/05/2023 [id number] / / [id number] [employer] Cement Bone Simplex Gentamicin High Viscosity 40gm 6195-1-001 - [id number] Implanted:Qty: 1 on 12/03/2022 by Thuan Servin MD at [facility] Left: Knee [employer] 05/05/2024 [id number] / / [id number] [employer] Attune Cruciate Retain Cementless Knee Left 9 Component Femoral [id number] - [id number] Implanted:Qty: 1 on 12/03/2022 by Thuan Servin MD at [facility] Left: Knee [employer] 06/05/2031 [id number] / / [id number] [employer] Attune 41mm Cemented Medialize Knee Dome Patellar Aox Sterile [id number] - [id number] Implanted:Qty: 1 on 12/03/2022 by Thuan Servin MD at [facility] Left: Knee [employer] 03/05/2027 [id number] / / [id number] [employer] Attune 10mm Cruciate Retaining Fix Bearing Knee 9 Insert Tibial [id number] - [id number] Implanted:Qty: 1 on 12/03/2022 by Thuan Servin MD at [facility] Left: Knee [employer] 08/05/2027 [id number] / / [id number] Attune Tibial Base Affixium Fixed Bearing Size 10 Implanted:Qty: 1 on 12/03/2022 by Thuan Servin MD at [facility] Left: Knee [employer] [id number] 09/04/2032 [id number] / N/A / [id number] Procedures Procedure Name Priority Date/Time Associated Diagnosis Comments LIPID PANEL Routine 12/06/2024 1:28 PM DIRECTOR COUNCIL ON AGING EGFR Routine 10/15/2023 5:48 AM DIRECTOR COUNCIL ON AGING HEMOGLOBIN A1C STAT 10/14/2023 2:19 AM DIRECTOR COUNCIL ON AGING COLONOSCOPY 09/24/2023 2:16 PM DIRECTOR COUNCIL ON AGING from Last 3 Months or Most Recently Relevant to Health Maintenance Results * (ABNORMAL) Lipid panel (12/06/2024 1:28 PM DIRECTOR COUNCIL ON AGING) [facility] SCRIBED Cholesterol, Total 107 30 - 199 mg/dL [facility] SCRIBED Triglycerides 75 <=149 mg/dL [facility] SCRIBED HDL 37(A) >=40 mg/dL [facility] SCRIBED LDL 54 <=129 mg/dL [facility] Scribed Non-HDL Cholesterol 70 NONE mg/dL [facility] SCRIBED Total Cholesterol/HDL Ratio 107 NONE [facility] Blood us Historical Provider LAB BLOOD ORDERABLES Edit ed Result - Final [facility] * (ABNORMAL) eGFR (10/15/2023 5:48 AM DIRECTOR COUNCIL ON AGING) Pathologist [facility] eGFR 48(L) >=60 mL/min/1. 73 m2 [facility] Comment: Interpretive Data Reference Interval Normal >/= [...] last reviewed 2021. Blood 10/15/2023 5:48 AM DIRECTOR COUNCIL ON AGING 10/15/2023 6:08 AM DIRECTOR COUNCIL ON AGING us Andrade Conti MD LAB BLOOD ORDERABLES Martha l Result Performing Organization Address City/[facility] Co de Phone Number [facility] Department [place] [address] * (ABNORMAL) Hemoglobin A1c (10/14/2023 2:19 AM DIRECTOR COUNCIL ON AGING) [facility] Hgb A1C 6.4(H) 4.0 - 5.6 % [facility] Estimated Average Glucose 137 mg/dL [facility] Comment: The ADA recommends reporting an estimated Average Glucose (eAG) with all Hemoglobin A1c results using the equation derived from a study of 507 normal and diabetic adults. Minority populations were underrepresented and children were not included. (Diabetes Care 2020; 43(S1): S66-S76). The eAG is not equivalent to a fasting glucose. Blood 10/14/2023 2:19 AM DIRECTOR COUNCIL ON AGING 10/14/2023 2:28 AM DIRECTOR COUNCIL ON AGING us Maribell Basilio MD LAB BLOOD ORDERABLES Final Result Performing Organization Address City/[facility] Co de Phone Number [facility] Department [place] [address] * COLONOSCOPY (09/24/2023 2:16 PM DIRECTOR COUNCIL ON AGING) Anatomical Region Laterality Modality Other Narrative Procedure Note Alli Ervin MD - 09/24/2023 2:16 PM [facility] Patient Name: Carl Guzman Procedure Date: 09/24/2023 2:16 PM Date of : 1945 Admit Type: Outpatient Age: 77 Gender: Male Attending MD: Alli Ervin M.D. Room: [facility] ENDOSCOPY ROOM 9 Note Status: Finalized Procedure: Colonoscopy Indications: Iron deficiency anemia Referring MD: Orlando Barr F.N.P. Providers: Alli Ervin M.D. Comorbidities See the [...] scope was passed under direct vision.The CF [id number] endoscope was introduced through the anus and advanced to the cecum, identified by appendiceal orifice and ileocecal valve. The colonoscopy was performed without difficulty. The patient tolerated the procedure well. The qualityof the bowel preparation was evaluated using the BBPS ([place] Bowel Preparation Scale) with scores of:Right Colon [...] On: 09/24/2023 2:16 PM Recognized by the [place] [employer] for promoting quality in endoscopy Alli Ervin MD ENDOSCOPY PROCEDURES Final Result from Last 3 Months or Most Recently Relevant to Health Maintenance Insurance [facility] MEDICARE [place] [facility] MEDICARE MEDICARE MEDICARE [place]ICARE [place] Advance Directives For more information, please contact: [phone] Documents on File Type Date Recorded Patient Production Planning Manager Expl anation Power of Accounting Auditor 08/15/2021 7:19 AM * Full Code (Latest [...] Name Relationship Healthcare Agent Relationshi p Communication [facility] Daughter Health Care Agent Care Teams Borematic Operator Relationship Specialty Start Date End Date Leonila Chapa MD [address] [facility] [address] [place] [address] PCP - General Family Medicine 12/29/17 Chinmay Shannon DPM [address] [place] [address] Referring Physician Foot and Ankle Surg 08/26/22 Zach Ojeda PA [address] [place] [address] Orthopedic Surgery 12/06/22 Yahaira Westfall MD [address] [place] [address] Consulting Physician Internal Medicine 05/20/23
[2025-04-13] MEDS: LACTATED RINGERS 1,000 ML 100 ML IV CONT (16:31)
--- NOTE | 2025-04-13 17:02 | P.HP_ITS ---
H&P: HPI History of Present Illness Date/Time: 04/13/25 17:02 Chief Complaint: Fall Narrative: 79-year-old male past medical history of CHF, anemia, renal malignant neoplasm, prostate cancer, CAD, diabetes, hypertension hyperlipidemia presents the hospital after a fall complaining of right hip pain. Patient states that he had a mechanical fall in his garage. Causing right leg pain and unable to walk So he called EMS and presented to the hospital. He denies hitting his head or losing consciousness. Patient denies lightheadedness, nausea vomiting fever chills. Lab work shows leukopenia at 3.5, anemia at 9.5, platelets of 117, potassium of 5.1, chloride of 109, BUN of 36, creatinine 1.4 for with previous creatinine being 1.48. Femur x-ray shows concerning for acute fracture. CT hip shows right femoral neck fracture. Review of Systems Review of Systems: 12 systems were reviewed and are negativ e except for as per HPI. [facility]LY [facility] Past Medical History Medical History Acute exacerbation of CHF (congestive heart failure) Skin tear of right lower leg without complication Pre-ulcerative corn or callous Kidney mass Pancreatic mass Nausea & vomiting Anemia Acquired deformity of left thigh Preoperative clearance Foot lesion Cellulitis Elsa tropicalis infection Hypotension Fall Bronchitis Elevated carbon dioxide level Alkaline phosphatase elevation Prostate cancer screening Body mass index (BMI) of 40.1 to 44.9 in adult Degenerative joint disease of knee Renal malignant neoplasm Prostate CA Intracranial atherosclerosis Eczema Hypertensive urgency Non-STEMI (non-ST elevated myocardial infarction) Most recent non-STEMI 12/11/2018 Obstructive sleep apnea Intolerant to CPAP Prostate cancer Renal cell carcinoma Elevated PSA, between 10 and less than 20 ng/ml Vertigo Morbid (severe) obesity due to excess calories Abnormality of gait CAD (coronary artery disease) Multivessel coronary artery disease with stents to the proximal and distal LAD, mid right coronary artery July 2014 with prior catheterization performed [facility] January 2018 had severe diffuse 3 vessel coronary artery disease with multiple stenoses of about 70% and mid to distal LAD between previously placed proximal and distal stents, 50-70% diffuse stenosis of the circumflex with a proximal stenosis of: To and total occlusion of a the marginal branch and diffuse distal right coronary artery disease with occluded RPDA referred for CABG DM neuropathy with neurologic complication GERD (gastroesophageal reflux disease) Dyslipidemia Hypertension Surgical History Surgical History Status post open reduction with internal fixation of fracture Of left leg at age 21 Stented coronary artery Hx of tonsillectomy S/P CABG (coronary artery bypass graft) (04/2018) YESENIA to LAD, vein graft to OM, radial graft to RPDA, RCA was diffusely diseased and not a great target for bypass, LAD was also diffusely diseased Family History Family History Father Family history of heart disease in male family member before age 55 Acute myocardial infarction Hypertension Mother Family history of heart disease in male family member before age 55 Acute myocardial infarction Emphysema of lung Asthma Sibling Family history of heart disease in male family member before age 55 Acute myocardial infarction Hypertension Polycystic kidney disease Sibling Family history of heart disease in male family member before age 55 Acute myocardial infarction Breast cancer Sibling Emphysema of lung Cerebrovascular accident Son Acute myocardial infarction Social History Social History Social History: He is and lives alone. He has an adult son and a daughter. 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 He is a lifelong nonsmoker and does not drink alcohol. Code status: Full code (he would not want to be on long-term life support or have a tracheostomy or PEG tube.) Surrogate decision maker: Adjacent (son) Smoking status: Never smoker Second hand tobacco smoke exposure: No Alcohol intake: never Substance use: never Substance use type: does not use Do You Feel Safe in your Home?: Yes Lack of Transportation: No Lack of Food: Sometimes True Current Housing: I Have Housing Concerned About Future Housing: YES Difficulty Paying Gas/Electric Bills: YES Difficulty Paying for Meds: YES Currently Unemployed: No Education: Decline to Answer Difficulty w/ Childcare or Family Care: No Living arrangements: alone Occupation/Education: retired Gender identity (if verbalized by the patient): Male Sexual Orientation (if Verbalized by the Patient): Straight or Heterosexual Spiritual care concerns: No Meds Home Medications and Allergies Home Medications ?Medication ?Instructions ?Recorded ?Confirmed ?Type evolocumab 140 mg/mL subcutaneous 140 mg subcut [id number] 05/07/21 01/25/25 History pen injector (Aman Ryder) pen needle, diabetic 31 gauge x #1,200 ea 05/28/22 01/25/25 Rx 5/16 (BD Ultra-Fine Short Pen Needle) ranolazine 500 mg tablet,extended 500 mg PO Q12H #60 tabs 08/16/22 01/25/25 Rx release,12 hr losartan 25 mg tablet 12.5 mg PO BID 05/15/23 01/25/25 History apixaban 5 mg tablet (Eliquis) 5 mg PO Q12HR #60 tabs 05/25/23 04/13/25 Rx furosemide 40 mg tablet (Lasix) 40 mg PO DAILY #30 tabs 09/01/23 01/25/25 Rx spironolactone 25 mg tablet 25 mg PO DAILY 09/01/23 01/25/25 History acetaminophen 325 mg tablet (Pain 650 mg (2 x 325 mg) PO Q6H PRN 11/14/23 04/13/25 Rx Reliever (acetaminophen)) Pain (Scale Score 1-3) #300 tabs tramadol 50 mg tablet 50 mg PO Q6H PRN pain #100 tabs 02/20/24 01/25/25 Rx isosorbide dinitrate 30 mg tablet See Rx Instructions .Route 03/28/24 01/25/25 Rx .COMPLEX #270 tabs polysaccharide iron complex 150 mg 150 mg PO DAILY #90 caps 11/22/24 01/25/25 Rx iron capsule (Poly-Iron) pantoprazole 40 mg tablet,delayed 40 mg PO QAM #100 tabs 01/13/25 01/25/25 Rx release blood-glucose sensor (FreeStyle #2 ea 01/25/25 01/25/25 Rx [place] 3 Sensor device) carvedilol 12.5 mg tablet See Rx Instructions .Route 01/31/25 Rx .COMPLEX #200 tabs insulin glargine 100 unit/mL (3 See Rx Instructions .Route 03/14/25 Rx mL) subcutaneous pen (Lantus .COMPLEX #57 mL Solostar U-100 Insulin) nitroglycerin 0.4 mg sublingual See Rx Instructions .Route 04/07/25 Rx tablet .COMPLEX #100 tabs insulin aspart U-100 100 unit/mL See Rx Instructions .Route 04/11/25 Rx (3 mL) subcutaneous pen .COMPLEX #15 mL Allergies Allergy/AdvReac Type Severity Reaction Status Date / Time Penicillins Allergy Severe Anaphylaxis Verified 04/13/25 18:31 liraglutide Allergy Unknown Hives / Verified 04/13/25 18:31 Red Face Izzzlbv-PJC-DvK Reductase AdvReac Unknown Muscle Verified 04/13/25 18:31 Inhibitor (Plkjnxe-Xtj-Elf Spasms Reductase Inhibitor) Vital Signs Vital Signs - 24 hr 04/13/25 13:02 04/13/25 13:30 04/13/25 14:30 Temperature 97.6 F Pulse Rate 58 L 50 L 57 L Respiratory Rate 16 13 13 Blood Pressure 116/47 L 89/42 L 105/52 L Pulse Oximetry 99 97 96 Oxygen Delivery Room Air 04/13/25 15:15 Temperature Pulse Rate 59 L Respiratory Rate 16 Blood Pressure 92/58 L Pulse Oximetry 97 Oxygen Delivery Exam Narrative: General: well appearing, appears stated age. HEENT: normocephalic, atraumatic. Mucous membranes moist. EOMI, PERRLA, bilateral sclera anicteric, no conjunctival injection. Neck supple without JVD, lymphadenopathy, or bruit. Respiratory: clear to ascultation bilaterally. No rales/rhonic/wheezes. Cardiovascular: Regular rate and rhythm, normal S1-S2 upon ascultation. No murmurs, rubs, or clicks. PMI is nondisplaced, capillary refill less than 3 second. Abdomen: Soft, round, no pulsatile masses, nondistended and nontender. No rebound, no guarding. No CVA tenderness, no hepatosplenomegaly. Bowel sounds present to all four quadrants. No high pitch or tinkling sounds, resonant to percussion. Extremities: No cyanosis, clubbing, or edema present. Pulses are palpable 2/2. Right lower extremity turned out Neuro: Alert and orientated x 4. PERRLA. Cranial nerves 2-12 intact without focal deficit. Skin: Warm, dry, and intact, without rash, erythema, or lesion. Psych: pleasant, cooperative, normal speech, normal affect, no hallucinations, no dysarthia H&P: Results Labs Labs: Short CBC 04/13/25 Range/Units 13:27 WBC 3.5 L (4.5-10.0) K/mm3 Hgb 9.5 L (14.0-18.0) g/dL Hct 27.9 L (42.0-52.0) % Plt Count 117 L (150-375) k/mm3 BMP 04/13/25 13:27 Sodium 137 Potassium 5.1 H Chloride 109 H Carbon Dioxide 21 L BUN 36 H D Creatinine 1.44 H Glucose 179 H Calcium 9.1 Liver Function 04/13/25 Range/Units 13:27 Total Bilirubin 1.1 (0.2-1.3) mg/dL AST 41 (17-59) U/L ALT 30 (6-50) U/L Alkaline Phosphatase 145 H (38-126) U/L Albumin 3.4 L (3.5-5.1) g/dL Assessment and Plan Assessment and plan (1) Closed displaced fracture of right femoral neck: Code(s): S72.001A - Fracture of unspecified part of neck of right femur, initial encounter for closed fracture Status: Acute Assessment and Plan: Orthopedics consulted NPO midnight EKG AFib rate controlled 64 Chest x-ray pending A.m. labs pending Pain management and bowel protocol (2) Hypertension: Qualifiers: Hypertension type: essential hypertension Qualified Code(s): I10 - Essential (primary) hypertension Code(s): I10 - Essential (primary) hypertension Status: Acute (3) Chronic diastolic (congestive) heart failure: Code(s): I50.32 - Chronic diastolic (congestive) heart failure Status: Acute Assessment and Plan: Pulmonary congestion seen on chest x-ray stop IV fluids IV Lasix x1 Re-evaluate fluid status morning Patient has not taken his anticoagulation since Friday (4) CAD (coronary artery disease): Qualifiers: Associated angina: with stable angina Coronary Disease-Associated Artery/Lesion type: [place] artery [place] vs. transplanted heart: [place] heart Qualified Code(s): I25.118 - Atherosclerotic heart disease of [place] coronary artery with other forms of angina pectoris Code(s): I25.10 - Atherosclerotic heart disease of [place] coronary artery without angina pectoris Status: Acute Assessment and Plan: Restart home meds once med rec is done (5) Atrial fibrillation: Qualifiers: Atrial fibrillation type: persistent (not longstanding) Qualified Code(s): I48.19 - Other persistent atrial fibrillation Code(s): I48.91 - Unspecified atrial fibrillation Status: Acute Assessment and Plan: Continue carvedilol (6) Insulin dependent type 2 diabetes mellitus: Code(s): E11.9 - Type 2 diabetes mellitus without complications; Z79.4 - joint terminal attack controller (current) use of insulin Status: Acute Assessment and Plan: NPO midnight Accu-Cheks q.6 SSI and Lantus (7) CKD (chronic kidney disease): Qualifiers: Chronic kidney disease stage: stage 3 (moderate) Chronic kidney disease stage 3 subtype: unspecified whether 3a or 3b Qualified Code(s): N18.30 - Chronic kidney disease, stage 3 unspecified Code(s): N18.9 - Chronic kidney disease, unspecified Status: Acute Assessment and Plan: Monitor for AALIYAH (8) Anemia associated with chemotherapy: Code(s): D64.81 - Anemia due to antineoplastic chemotherapy; T45.1X5A - Adverse effect of antineoplastic and immunosuppressive drugs, initial encounter Status: Acute Assessment and Plan: No signs of acute bleeding at this time Transfuse for hemoglobin less than 7 Quality VTE Prophylaxis VTE prophylaxis: mechanical ordered If No VTE Prophylaxis Answer both mechanical and pharmacologic: Reason no pharmacologic proph: medical contraindication Hospitalist MIPS Advance Care Plan I have confirmed that the patient's Advanced Care Plan is present, code status is documented, or surrogate decision maker is listed in patient medical record.: Yes Medication Reconciliation I have utilized all available resources to obtain, update and review the patients current medications (includes all prescriptions, OTC, herbals, cannabis, and nutritional supplements).: Yes
--- NOTE | 2025-04-13 17:13 | ECG_ITS ---
Test Date: 2025-04-13 18:24:18 Measurements Intervals [place] Rate: 64 P: 0 TN: 0 QRS: -62 QRSD: 163 T: 119 QT: 455 QTc: 472 Interpretive Statements ATRIAL FIBRILLATION LEFT AXIS DEVIATION [QRS AXIS < -30] LEFT BUNDLE BRANCH BLOCK [120+ ms QRS DURATION, 80+ ms Q/S IN V1/V2, 85+ ms R IN I/aVL/V5/V6] No previous ECG available for comparison Electronically Signed On 04-14-2025 11:45:44 CDT by Chinedu Seaman M.D.
--- NOTE | 2025-04-13 18:14 | ADMGEN ---
This patient, Lopez Guzman, was admitted to 3 [facility] Surg Room 304-01. Patient/family oriented to hospital policies and general routines including ID bracelet, bed and alarms, visiting hours, pain management, procedures, bathroom and other care routines, personal items, smoking policy, room service/diet, and visiting hours. Information on how to activate the Rapid Response Team has been discussed. Patient/Family are encouraged to report perceived risks to care and to ask questions if they do not understand what they are told or what they should do.
[2025-04-13] MEDS: FUROSEMIDE INJ 40 MG/4 ML VIAL IV PUSH (23:53)
[2025-04-14] MEDS: HYDROmorphone HCL INJ (*CRX) 2 MG/ML VIAL 0.5 MG IV PUSH ×5 (04:01→23:07)
[2025-04-14 04:52] VITALS: BP 130/60; PULSE 76; RESP 16; TEMP 36.6; O2SAT 93
[2025-04-14 07:12] LABS: Hematocrit 32.2 % (42.0-52.0); Hemoglobin 10.4 g/dL (14.0-18.0); Immature Granulocyte Percent A 0.4 % (0-0.5); Lymphocytes Absolute Auto 0.47 K/mm3 (0.9-3.2); Mean Corpuscular HGB Conc 32.3 g/dl (32-36); Mean Corpuscular Hemoglobin 32.6 pg (26-34); Mean Corpuscular Volume 100.9 fl (80-100); Nucleated Red Blood Cells Absolute Auto 0.000 K/mm3 (0.0-0.012); Nucleated Red Blood Cells Perc 0.0 % (0.0-0.2); Platelet Count Result 115 k/mm3 (150-375); Red Blood Count 3.19 M/mm3 (4.6-6.20); White Blood Count 4.8 K/mm3 (4.5-10.0)
[2025-04-14 07:18] LABS: Anion Gap 8 mmol/L (4-12); Blood Urea Nitrogen 35 mg/dL (9-20); Calcium 9.5 mg/dL (8.4-10.2); Carbon Dioxide 26 mmol/L (22-30); Chloride 105 mmol/L (98-107); Estimated CRCL calculation 49 ml/min; Estimated Glomerular Filt Rate 47; Glucose 159 mg/dL (65-110); Potassium 5.0 mmol/L (3.4-5.0); Sodium 139 mmol/L (137-145)
[2025-04-14 09:29] VITALS: PULSE 73
[2025-04-14] MEDS: DOCUSATE SODIUM 100 MG CAPSULE PO ×2 (09:29→17:08)
[2025-04-14 12:03] VITALS: O2SAT 98
--- NOTE | 2025-04-14 13:37 | P.PNIM_ITS ---
Progress Note: A&P Assessment and Plan (1) Closed displaced fracture of right femoral neck: Code(s): S72.001A - Fracture of unspecified part of neck of right femur, initial encounter for closed fracture Status: Acute Assessment and Plan: Orthopedics consulted NPO midnight EKG AFib rate controlled 64 Chest x-ray pending A.m. labs pending Pain management and bowel protocol 04/14/25: * EKG reviewed independently by this provider, and is identical to most recent dated 08/2023. * ECHO ordered - but will not change the clearance of pt for surgery. * Labs unremarkable with CBC and renal function is at baseline w/Cr and BUN at 1.44/35 respectively. * CXR without acute infection. Pulmonary congestion noted, and received a dose of Lasix. Not requiring supplemental oxygen. ECHO ordered. Appears Euvolemic. * Continue pain management and bowel protocol. * NPO at [facility], [place]. * Fall Precautions * SCD's ordered. Pt has been off of his Eliquis for four days. * PT IS CONSIDERED MEDICALLY CLEAR FOR OR TO REPAIR RIGHT FEMORAL NECK FRACTURE. (2) Hypertension: Qualifiers: Hypertension type: essential hypertension Qualified Code(s): I10 - Essential (primary) hypertension Code(s): I10 - Essential (primary) hypertension Status: Chronic Assessment and Plan: 04/14/25: * Home meds not yet verified. * BP range is 80s-130s Systolic/40s-60s Diastolic * Continue to trend VS. (3) Chronic diastolic (congestive) heart failure: Code(s): I50.32 - Chronic diastolic (congestive) heart failure Status: Chronic Assessment and Plan: Pulmonary congestion seen on chest x-ray stop IV fluids IV Lasix x1 Re-evaluate fluid status morning Patient has not taken his anticoagulation since Friday04/14/25: * Last ECHO 05/20/23 shows normal LVSF w/EF of 60-65%, and Grade III Diastolic dysfunction * Currently pt appears euvolemic. * Repeat ECHO ordered. * Stop IVF for now. Consider restarting after MN when he is NPO. (4) CAD (coronary artery disease): Qualifiers: Coronary Disease-Associated Artery/Lesion type: [place] artery [place] vs. transplanted heart: [place] heart Associated angina: with stable angina Qualified Code(s): I25.118 - Atherosclerotic heart disease of [place] coronary artery with other forms of angina pectoris Code(s): I25.10 - Atherosclerotic heart disease of [place] coronary artery without angina pectoris Status: Acute Assessment and Plan: Restart home meds once med rec is done 04/14/25: * Home meds still not completed. * Asymptomatic. * BP stable (5) Atrial fibrillation: Qualifiers: Atrial fibrillation type: persistent (not longstanding) Qualified Code(s): I48.19 - Other persistent atrial fibrillation Code(s): I48.91 - Unspecified atrial fibrillation Status: Chronic Assessment and Plan: Continue carvedilol 04/14/25: * Holding Eliquis in the setting of upcoming surgery. * Carvedilol 12.5 mg Q12 hrs for rate control. Pulse ranging 50s-80s. (6) Insulin dependent type 2 diabetes mellitus: Code(s): E11.9 - Type 2 diabetes mellitus without complications; Z79.4 - alf (current) use of insulin Status: Chronic Assessment and Plan: NPO midnight Accu-Cheks q.6 SSI and Lantus 04/14/25: * Do not hold Lantus in setting of NPO at [place]. * Continue Hypoglycemic protocol. * Check A1C (7) CKD (chronic kidney disease): Qualifiers: Chronic kidney disease stage: stage 3 (moderate) Chronic kidney disease stage 3 subtype: unspecified whether 3a or 3b Qualified Code(s): N18.30 - Chronic kidney disease, stage 3 unspecified Code(s): N18.9 - Chronic kidney disease, unspecified Status: Chronic Assessment and Plan: Monitor for AALIYAH 04/14/25: * Appears to be at Baseline with Cr/BUN 1.44/35 respectively. (8) Anemia associated with chemotherapy: Code(s): D64.81 - Anemia due to antineoplastic chemotherapy; T45.1X5A - Adverse effect of antineoplastic and immunosuppressive drugs, initial encounter Status: Acute Assessment and Plan: No signs of acute bleeding at this time Transfuse for hemoglobin less than 7 04/14/25: * Stable H&H at this time at 10.4/32.2. * No active bleeding or obvious hematoma development at the site of injury. Plan Pt is medically clear for surgery tomorrow with Dr. Gardner. I discussed pt and the POC with his daughter Liliana Butler. All questions were answered to her satisfaction. Time Spent With Patient Time with patient: 25 - 35 minutes Subjective Date/time seen: 04/14/25 13:37 Interval history: This is a 79 year old male pt who was admitted to the hospital post fall in the garage and sustaining a right Femoral Neck Fx. He has a hx of A-fib and is on [employer], and states he ran out of it four days ago, so he has not had any since . EKG on arrival to ER shows A-fib w/LAD and LBBB, which is unchanged from previous EKG dated 08/30/23. ECHO ordered. CXR without any acute findings. Pt without CP or any dyspnea/CP, so is considered medically cleared by medicine. Orthopedics to take to OR tomorrow by Dr. Gardner. Pain currently present in right hip. Review of Systems Review of Systems: All systems reviewed & are unremarkable except as noted in HPI and below Exam Const: General: no acute distress and uncomfortable Other: Obese male pt lying supine at this time without any acute distress. HENMT: Face/Nose/Sinus: Normal nares present Eyes: General: appearance normal, both eyes and all related structures Sclera: sclerae normal Pupils: Equal, round and reactive pupils present EOM: EOMs intact bilaterally Neck: Neck: supple and no JVD Thyroid: thyroid normal Lymphatic: lymphadenopathy not noted Resp: Effort & Inspection: normal respiratory effort Auscultation: clear to auscultation bilaterally Cardio: Rate: regular rate Rhythm: abnormal rhythm Heart sounds: no gallops, no murmurs and no rubs GI: GI Palp: Yes Soft to palpation and No Tenderness to palpation present (GI) Auscultation: normal bowel sounds Urinary Catheter: Urinary Catheter: patent and draining and urine cloudy Skin: General skin exam: normal color, no rashes or lesions noted and no erythema Lesions: no lesions noted Rashes: no rashes noted Wounds: no wounds Neuro: Speech: normal speech Motor exam (neuro): Abnormal motor strength present (Decreased strength in RLE.) Sensory Exam: normal sensation Extrem: Other: Decreased AROM of the RLE due to acute fracture of the right femoral neck. Psych: Mental Status: mental status grossly normal Affect: normal affect Objective Data Vital Signs Vital Signs: Vital Signs - 24 hr 04/13/25 14:30 04/13/25 15:15 04/13/25 17:00 Temperature 97.4 F L Pulse Rate 57 L 59 L 58 L Respiratory Rate 13 16 12 Blood Pressure 105/52 L 92/58 L 106/48 L Pulse Oximetry 96 97 99 Oxygen Delivery 04/13/25 18:03 04/13/25 20:00 04/13/25 20:48 Temperature 96.8 F L 97.6 F Pulse Rate 80 82 82 Respiratory Rate 20 16 16 Blood Pressure 138/68 135/65 Pulse Oximetry 99 100 100 Oxygen Delivery Room Air 04/14/25 04:52 04/14/25 09:29 04/14/25 12:03 Temperature 97.9 F Pulse Rate 76 73 Respiratory Rate 16 Blood Pressure 130/60 Pulse Oximetry 93 98 Oxygen Delivery Room Air Intake/Output Intake/Output: Intake & Output 04/11/25 04/12/25 04/13/25 04/14/25 23:59 23:59 23:59 23:59 Intake Total 400 Output Total 2500 Balance 400 -2500 Meds/Results Medications: Active Medications Generic Name Dose Route Start Last Admin Trade Name Freq PRN Reason Stop Dose Admin Apixaban 5 mg 04/13/25 21:00 Apixaban 5 Mg Tablet PO Q12HR YUNIOR Carvedilol 12.5 mg 04/14/25 09:00 04/14/25 09:29 Carvedilol 12.5 Mg Tablet PO 12.5 mg Q12HR YUNIOR Administration Dextrose 12.5 gm 04/13/25 19:34 Dextrose 50% 25 Gm/50 Ml Syringe IV PUSH PRN PRN Hypoglycemia Protocol Docusate Sodium 100 mg 04/13/25 17:30 04/14/25 09:29 Docusate Sodium 100 Mg Capsule PO 100 mg BID YUNIOR Administration Glucagon 1 mg 04/13/25 19:34 Glucagon For Inj 1 Mg Vial IM PRN PRN Hypoglycemia Protocol Glucose 15 gm 04/13/25 19:34 Glucose Oral Gel 15 Gm Of Glucse In 37.5 Gm Tube PO PRN PRN Hypoglycemia Protocol Hydromorphone HCl 0.5 mg 04/13/25 16:20 04/14/25 09:40 Hydromorphone Hcl Inj (*Crx) 2 Mg/Ml Vial IV PUSH 0.5 mg Q4H PRN Administration Pain Rated 7-10 Dextrose 1,000 mls @ 100 mls/hr 04/13/25 19:34 Dextrose 5% 1,000 Ml IVPB PRN PRN Hypoglycemia Protocol Insulin Aspart 2 - 5 units 04/14/25 08:00 04/14/25 12:35 Insulin Aspart (*Bkc) 100 Units/Ml SUB-Q Not Given TIDWM YUNIOR Protocol Insulin Glargine 18 units 04/13/25 21:00 04/13/25 21:20 Insulin Glargine (*Bkc) 100 Units/Ml 0.15 units/kg (18 units) Not Given SUB-Q HS [facility] Radiology Results: ITS Impressions Hip/Pelvis X-Ray 04/13/25 14:06 IMPRESSION: Acute partially comminuted fracture of the right femoral neck with overlap of the fracture fragments are noted. Hip CT 04/13/25 14:44 IMPRESSION: Acute displaced fracture of the right femoral neck with anterior displacement of the distal fracture segment. Chest X-Ray 04/13/25 17:51 IMPRESSION: Cardiomegaly with congestive yaya. Prominent markings in the lower lobes. Head CT 04/14/25 11:31 Impression: No significant abnormality seen. Labs Labs: Laboratory Results - last 24 hr 04/13/25 04/13/25 04/14/25 13:27 20:51 04:57 WBC 3.5 L RBC 2.85 L Hgb 9.5 L Hct 27.9 L MCV 97.9 MCH 33.3 MCHC 34.1 RDW 13.7 Plt Count 117 L MPV 9.3 Immature Gran % (Auto) 0.9 H Neut % (Auto) 62.2 Lymph % (Auto) 18.4 [place] % (Auto) 12.1 H Eos % (Auto) 5.5 H Baso % (Auto) 0.9 Lymph # (Auto) 0.64 L [place] # (Auto) 0.4 Eos # (Auto) 0.2 Baso # (Auto) 0.0 Abs Immat Gran (auto) 0.03 Absolute Neuts (auto) 2.2 Absolute Nucleated RBC 0.000 Nucleated RBC % 0.0 PT 15.1 H INR 1.2 APTT 29.5 Sodium 137 Potassium 5.1 H Chloride 109 H Carbon Dioxide 21 L Anion Gap 7 BUN 36 H D Creatinine 1.44 H Estim Creat Clear Calc 50 Estimated GFR 47 L Glucose 179 H POC Capillary Glucose 172 H 162 H Calcium 9.1 Total Bilirubin 1.1 AST 41 ALT 30 Alkaline Phosphatase 145 H Total Protein 6.8 Albumin 3.4 L 04/14/25 04/14/25 04/14/25 06:40 10:35 11:26 WBC 4.8 RBC 3.19 L Hgb 10.4 L Hct 32.2 L MCV 100.9 H MCH 32.6 MCHC 32.3 RDW 13.8 Plt Count 115 L MPV 9.6 Immature Gran % (Auto) 0.4 Neut % (Auto) 74.9 H Lymph % (Auto) 9.9 L [place] % (Auto) 11.9 H Eos % (Auto) 2.5 Baso % (Auto) 0.4 Lymph # (Auto) 0.47 L [place] # (Auto) 0.6 Eos # (Auto) 0.1 Baso # (Auto) 0.0 Abs Immat Gran (auto) 0.02 Absolute Neuts (auto) 3.6 Absolute Nucleated RBC 0.000 Nucleated RBC % 0.0 PT INR APTT Sodium 139 Potassium 5.0 Chloride 105 Carbon Dioxide 26 Anion Gap 8 BUN 35 H Creatinine 1.44 H Estim Creat Clear Calc 49 Estimated GFR 47 L Glucose 159 H POC Capillary Glucose 161 H 148 H Calcium 9.5 Total Bilirubin AST ALT Alkaline Phosphatase Total Protein Albumin Quality VTE Prophylaxis VTE prophylaxis: mechanical ordered
[2025-04-14 14:00] VITALS: BP 118/48; PULSE 67; RESP 16; TEMP 36.8; O2SAT 99
[2025-04-14 16:53] LABS: Hemoglobin A1C 6.6 % (<5.7)
--- NOTE | 2025-04-14 17:24 | PM.CNOR ---
Assessment and Plan Assessment and plan (1) Closed displaced fracture of right femoral neck: Code(s): S72.001A - Fracture of unspecified part of neck of right femur, initial encounter for closed fracture Status: Acute Assessment and Plan: S/P [id number] FEMORAL NECK FRACTURE AFTER A FALL. HE WILL REQUIRE RIGHT DONALDO ARTHROPLASTY ONCE CLEARED BY MEDICINE. DISCUSSED NONOPERATIVE AND OPERATIVE TREATMENT OPTIONS WITH THE PATIENT. THE PATIENT'S QUESTIONS WERE ANSWERED. THE PATIENT DESIRES OPERATIVE TREATMENT. DISCUSSED ___RIGHT HIP DONALDO ARTHROPLASTY . RISKS OF SURGERY INCLUDING BUT NOT LIMITED TO NEUROVASCULAR DAMAGE, WOUND COMPLICATIONS, BLOOD CLOT, PULMONARY EMBOLUS, STROKE, LA, ANESTHETIC RISKS UP TO AND INCLUDING WERE REVIEWED. CONTINUED PAIN AND POSSIBLE DYSFUNCTION WERE EXPLAINED. NO GUARANTEES WERE OFFERED. THE PATIENT UNDERSTANDS AND WISHES TO PROCEED. History of Present Illness HPI Consult date: 04/14/25 Chief complaint: right femoral neck fracture Narrative: CARL WAS TRYING TO CLOSE HIS GARAGE DOOR WHEN HE SLIPPED AND FELL. HE HAD PAIN AND SWELLING IN THE RIGHT HIP. HE WAS SEEN IN THE ED AND FOUND TO HAVE A RIGHT FEMORAL FRACTURE WITH DISPLACEMENT. HE COMPLAINS OF MODERATE RIGHT HIP PAIN. HE DENIES ANY OTHER PAIN. HE HAS NO NECK OR BACK PAIN. HISTORY, EXAM AND RADIOGRAPHS REVIEWED WITH THE PATIENT. REFERRING PHYSICIAN RECORDS AND IMAGES REVIEWED. CONDITION, NATURE, ETIOLOGY AND COURSE OF NATURAL HISTORY REVIEWED. CONSERVATIVE AND OPERATIVE TREATMENT OPTIONS REVIEWED WELL THE RISKS AND BENEFITS OF EACH. Review of Systems Review of Systems: All systems reviewed & are unremarkable except as noted in HPI and below PMFSH Past Medical History Medical History Acute exacerbation of CHF (congestive heart failure) Skin tear of right lower leg without complication Pre-ulcerative corn or callous Kidney mass Pancreatic mass Nausea & vomiting Anemia Acquired deformity of left thigh Preoperative clearance Foot lesion Cellulitis Elsa tropicalis infection Hypotension Fall Bronchitis Elevated carbon dioxide level Alkaline phosphatase elevation Prostate cancer screening Body mass index (BMI) of 40.1 to 44.9 in adult Degenerative joint disease of knee Renal malignant neoplasm Prostate CA Intracranial atherosclerosis Eczema Hypertensive urgency Non-STEMI (non-ST elevated myocardial infarction) Most recent non-STEMI 12/11/2018 Obstructive sleep apnea Intolerant to CPAP Prostate cancer Renal cell carcinoma Elevated PSA, between 10 and less than 20 ng/ml Vertigo Morbid (severe) obesity due to excess calories Abnormality of gait CAD (coronary artery disease) Multivessel coronary artery disease with stents to the proximal and distal LAD, mid right coronary artery July 2014 with prior catheterization performed [facility] January 2018 had severe diffuse 3 vessel coronary artery disease with multiple stenoses of about 70% and mid to distal LAD between previously placed proximal and distal stents, 50-70% diffuse stenosis of the circumflex with a proximal stenosis of: To and total occlusion of a the marginal branch and diffuse distal right coronary artery disease with occluded RPDA referred for CABG DM neuropathy with neurologic complication GERD (gastroesophageal reflux disease) Dyslipidemia Hypertension Surgical History Surgical History Status post open reduction with internal fixation of fracture Of left leg at age 21 Stented coronary artery Hx of tonsillectomy S/P CABG (coronary artery bypass graft) (04/2018) YESENIA to LAD, vein graft to OM, radial graft to RPDA, RCA was diffusely diseased and not a great target for bypass, LAD was also diffusely diseased Family History Family History Father Family history of heart disease in male family member before age 55 Acute myocardial infarction Hypertension Mother Family history of heart disease in male family member before age 55 Acute myocardial infarction Emphysema of lung Asthma Sibling Family history of heart disease in male family member before age 55 Acute myocardial infarction Hypertension Polycystic kidney disease Sibling Family history of heart disease in male family member before age 55 Acute myocardial infarction Breast cancer Sibling Emphysema of lung Cerebrovascular accident Son Acute myocardial infarction Social History Social History Social History: He is and lives alone. He has an adult son and a daughter. 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 He is a lifelong nonsmoker and does not drink alcohol. Code status: Full code (he would not want to be on long-term life support or have a tracheostomy or PEG tube.) Surrogate decision maker: Adjacent (son) Smoking status: Never smoker Second hand tobacco smoke exposure: No Alcohol intake: never Substance use: never Substance use type: does not use Do You Feel Safe in your Home?: Yes Lack of Transportation: No Lack of Food: Sometimes True Current Housing: I Have Housing Concerned About Future Housing: YES Difficulty Paying Gas/Electric Bills: YES Difficulty Paying for Meds: YES Currently Unemployed: No Education: Decline to Answer Difficulty w/ Childcare or Family Care: No Living arrangements: alone Occupation/Education: retired Gender identity (if verbalized by the patient): Male Sexual Orientation (if Verbalized by the Patient): Straight or Heterosexual Spiritual care concerns: No Meds Home Medications and Allergies Home Medications ?Medication ?Instructions ?Recorded ?Confirmed ?Type evolocumab 140 mg/mL subcutaneous 140 mg subcut [id number] 05/07/21 01/25/25 History pen injector (Aman Ryder) pen needle, diabetic 31 gauge x #1,200 ea 05/28/22 01/25/25 Rx 5/16 (BD Ultra-Fine Short Pen Needle) ranolazine 500 mg tablet,extended 500 mg PO Q12H #60 tabs 08/16/22 01/25/25 Rx release,12 hr losartan 25 mg tablet 12.5 mg PO BID 05/15/23 01/25/25 History apixaban 5 mg tablet (Eliquis) 5 mg PO Q12HR #60 tabs 05/25/23 04/13/25 Rx furosemide 40 mg tablet (Lasix) 40 mg PO DAILY #30 tabs 09/01/23 01/25/25 Rx spironolactone 25 mg tablet 25 mg PO DAILY 09/01/23 01/25/25 History acetaminophen 325 mg tablet (Pain 650 mg (2 x 325 mg) PO Q6H PRN 11/14/23 04/13/25 Rx Reliever (acetaminophen)) Pain (Scale Score 1-3) #300 tabs tramadol 50 mg tablet 50 mg PO Q6H PRN pain #100 tabs 02/20/24 01/25/25 Rx isosorbide dinitrate 30 mg tablet See Rx Instructions .Route 03/28/24 01/25/25 Rx .COMPLEX #270 tabs polysaccharide iron complex 150 mg 150 mg PO DAILY #90 caps 11/22/24 01/25/25 Rx iron capsule (Poly-Iron) pantoprazole 40 mg tablet,delayed 40 mg PO QAM #100 tabs 01/13/25 01/25/25 Rx release blood-glucose sensor (FreeStyle #2 ea 01/25/25 01/25/25 Rx [place] 3 Sensor device) carvedilol 12.5 mg tablet See Rx Instructions .Route 01/31/25 Rx .COMPLEX #200 tabs insulin glargine 100 unit/mL (3 See Rx Instructions .Route 03/14/25 Rx mL) subcutaneous pen (Lantus .COMPLEX #57 mL Solostar U-100 Insulin) nitroglycerin 0.4 mg sublingual See Rx Instructions .Route 04/07/25 Rx tablet .COMPLEX #100 tabs insulin aspart U-100 100 unit/mL See Rx Instructions .Route 04/11/25 Rx (3 mL) subcutaneous pen .COMPLEX #15 mL Allergies Allergy/AdvReac Type Severity Reaction Status Date / Time Penicillins Allergy Severe Anaphylaxis Verified 04/13/25 18:31 liraglutide Allergy Unknown Hives / Verified 04/13/25 18:31 Red Face [id number] Reductase AdvReac Unknown Muscle Verified 04/13/25 18:31 Inhibitor (Tdpvdif-Tjc-Rxt Spasms Reductase Inhibitor) Vital Signs Vital Signs - 24 hr 04/13/25 18:03 04/13/25 20:00 04/13/25 20:48 Temperature 36.0 C L 36.4 C Pulse Rate 80 82 82 Respiratory Rate 20 16 16 Blood Pressure 138/68 135/65 Pulse Oximetry 99 100 100 Oxygen Delivery Room Air 04/14/25 04:52 04/14/25 08:00 04/14/25 09:29 Temperature 36.6 C Pulse Rate 76 73 Respiratory Rate 16 Blood Pressure 130/60 Pulse Oximetry 93 Oxygen Delivery Room Air 04/14/25 12:03 04/14/25 14:00 Temperature 36.8 C Pulse Rate 67 Respiratory Rate 16 Blood Pressure 118/48 L Pulse Oximetry 98 99 Oxygen Delivery Room Air Exam Extrem: Right upper extremity: normal to inspection and full ROM Left upper extremity: normal to inspection and full ROM Right lower extremity: normal to inspection, full ROM, normal capillary refill, hip/thigh Details: abnormal to inspection, tenderness Location: of the hip Location: over the greater trochanter, swelling, abnormal ROM Details: pain with active ROM during Details: with ADduction, with ABduction, with extension, with flexion, to internal rotation and to external rotation and pain with passive ROM during Details: to ADduction, to ABduction, to extension, to flexion, to internal rotation and to external rotation, ecchymosis, crepitus, deformity and warmth; no abrasions and no lacerations, knee Details: normal to inspection, normal ROM and knee ligament exam normal; no tenderness and no swelling, lower leg Details: normal to inspection and palpable cord; no tenderness and no ecchymosis, ankle Details: normal to inspection and normal ROM; no tenderness and no swelling and foot Details: normal capillary refill, abnormal to inspection and toes with normal ROM; no tenderness; no cyanosis and no edema Left lower extremity: hip/thigh Details: normal to inspection and normal ROM; no tenderness and no swelling, knee Details: normal to inspection and normal ROM; no tenderness and no swelling, lower leg Details: normal to inspection and palpable cord; no tenderness, ankle Details: normal to inspection; no tenderness and no swelling and foot Details: normal capillary refill, normal to inspection, toes with normal ROM and vascular exam Details: dorsalis pedis pulse present and posterior tibial pulse present; no tenderness Results Labs 04/14/25 06:40 04/14/25 06:40 Labs: Abnormal lab results 04/13/25 04/14/25 04/14/25 Range/Units 20:51 04:57 06:37 RBC (4.6-6.20) M/mm3 Hgb (14.0-18.0) g/dL Hct (42.0-52.0) % MCV (80-100) fl Plt Count (150-375) k/mm3 Neut % (Auto) (45.5-73.1) % Lymph % (Auto) (18.3-44.2) % [place] % (Auto) (2.6-8.5) % Lymph # (Auto) (0.9-3.2) K/mm3 BUN (9-20) mg/dL Creatinine (0.7-1.3) mg/dL Estimated GFR (59 - ) Glucose (65-110) mg/dL POC Capillary Glucose 172 H 162 H (65-105) mg/dl Hemoglobin A1c 6.6 H (<5.7) % 04/14/25 04/14/25 04/14/25 Range/Units 06:40 10:35 11:26 RBC 3.19 L (4.6-6.20) M/mm3 Hgb 10.4 L (14.0-18.0) g/dL Hct 32.2 L (42.0-52.0) % MCV 100.9 H (80-100) fl Plt Count 115 L (150-375) k/mm3 Neut % (Auto) 74.9 H (45.5-73.1) % Lymph % (Auto) 9.9 L (18.3-44.2) % [place] % (Auto) 11.9 H (2.6-8.5) % Lymph # (Auto) 0.47 L (0.9-3.2) K/mm3 BUN 35 H (9-20) mg/dL Creatinine 1.44 H (0.7-1.3) mg/dL Estimated GFR 47 L (59 - ) Glucose 159 H (65-110) mg/dL POC Capillary Glucose 161 H 148 H (65-105) mg/dl Hemoglobin A1c (<5.7) % 04/14/25 Range/Units 16:43 RBC (4.6-6.20) M/mm3 Hgb (14.0-18.0) g/dL Hct (42.0-52.0) % MCV (80-100) fl Plt Count (150-375) k/mm3 Neut % (Auto) (45.5-73.1) % Lymph % (Auto) (18.3-44.2) % [place] % (Auto) (2.6-8.5) % Lymph # (Auto) (0.9-3.2) K/mm3 BUN (9-20) mg/dL Creatinine (0.7-1.3) mg/dL Estimated GFR (59 - ) Glucose (65-110) mg/dL POC Capillary Glucose 204 H (65-105) mg/dl Hemoglobin A1c (<5.7) % H & H 04/13/25 04/14/25 Range/Units 13:27 06:40 Hgb 9.5 L 10.4 L (14.0-18.0) g/dL Hct 27.9 L 32.2 L (42.0-52.0) % Coagulation 04/13/25 Range/Units 13:27 INR 1.2 All other labs normal.
[2025-04-14] MEDS: INSULIN ASPART (*BKC) 100 UNITS/ML SUB-Q (17:30)
[2025-04-14 20:03] VITALS: BP 123/69; PULSE 64; RESP 18; TEMP 37.4; O2SAT 99
[2025-04-14] MEDS: INSULIN GLARGINE (*BKC) 100 UNITS/ML 18 UNITS SUB-Q (21:00)
[2025-04-14 21:08] VITALS: PULSE 65
[2025-04-15] VITALS (14 sets, daily range): BP systolic 100–126; BP diastolic 48–75; PULSE 80–120; RESP 13–21; TEMP 36.7–37.6; O2SAT 94–100
--- NOTE | 2025-04-15 | ECHO_ITS ---
Patient Info Name: Lopze Guzman Age: 79 years : 1945 Gender: Male Ht: 71 in Wt: 257 lbs BSA: 2.46 m2 HR: 97 bpm BP: 126 / 71 mmHg Heart Rhythm: Sinus Rhythm Technical Quality: Poor Exam Date: 04/15/2025 9:17 AM Patient Status: I Admit Date: 04/13/2025 Exam Type: CA echo dop color flow w con Complete two-dimensional, color flow and Doppler transthoracic echocardiogram is performed with contrast to opacify the left ventricle and to improve the deliniation of the left ventricle endocardial borders. Staff Referring Physician: Ziggy Gardner MD Brush Maker: Gillian gAuilar Attending Provider: Patricia Cabral Contrast/Agitated Saline Contrast/Ag. Saline: Definity Amount: 2.00 ml Administered By: Gillian Aguilar Existing IV Access: Yes IV Access Condition: patent with no signs of infiltration Reason for Poor Study: poor echocardiographic windows Summary 1. Left ventricular chamber dimension is mildly enlarged. 2. Left ventricular systolic function is normal, estimated at 55-60. 3. There is severely increased left ventricular wall thickness. 4. The left ventricular diastolic function is grade II diastolic dysfunction. 5. The apical septum, basal anteroseptal, and mid anteroseptal are hypokinetic. 6. Left atrial chamber dimension is severely enlarged. 7. Right atrial chamber dimension is severely enlarged. 8. There is moderate aortic valve calcification. 9. There is mild aortic valve stenosis. 10. There is mild mitral valve regurgitation. 11. The mitral valve has a calcified annulus. 12. There is moderate to severe tricuspid valve regurgitation. 13. Severe pulmonary hypertension, estimated pulmonary arterial systolic pressure is 72 mmHg. 14. There is mild pulmonic regurgitation. Left Ventricle Left ventricular chamber dimension is mildly enlarged. Left ventricular systolic function is normal, estimated at 55-60. There is severely increased left ventricular wall thickness. The left ventricular diastolic function is grade II diastolic dysfunction. The apical septum, basal anteroseptal, and mid anteroseptal are hypokinetic. All other calderon appear normal. Right Ventricle Right ventricular chamber dimension is normal. Right ventricular systolic function is normal. Left Atria Left atrial chamber dimension is severely enlarged. Right Atria Right atrial chamber dimension is severely enlarged. Atrial Septum Intact interatrial septum visualized by color flow imaging. Aortic Valve The aortic valve is trileaflet. There is mild aortic valve stenosis. There is trace aortic valve regurgitation. There is moderate aortic valve calcification. Pulmonic Valve The pulmonic valve is normal. There is no pulmonic valve stenosis. There is mild pulmonic regurgitation. Mitral Valve The mitral valve has a calcified annulus. There is no mitral valve stenosis. There is mild mitral valve regurgitation. Tricuspid Valve The tricuspid valve leaflets are normal. There is no significant tricuspid valve stenosis. There is moderate to severe tricuspid valve regurgitation. Severe pulmonary hypertension, estimated pulmonary arterial systolic pressure is 72 mmHg. Pericardium/Pleural The pericardium appears normal. Inferior Vena Cava Dilated inferior vena cava with <50% collapse upon inspiration consistent with elevated right atrial pressure, 15 mmHg. Aorta The aortic root size at the sinus of Valsalva is normal. Left Ventricular Outflow Tract Name Value Normal LVOT 2D LVOT Diameter 2.0 cm LVOT Doppler LVOT Peak Velocity 95 cm/s LVOT Peak Gradient 4 mmHg LVOT Mean Gradient 2 mmHg LVOT VTI 18 cm LVOT Stroke Volume 57 ml LVOT CO 5.5 l/min LVOT CI 2.3 l/min/m2 Pulmonic Valve Name Value Normal RVOT Doppler RVOT Peak Velocity 72 cm/s RVOT Peak Gradient 2 mmHg PV Doppler PV Peak Velocity 146 cm/s PV Peak Gradient 9 mmHg Mitral Valve Name Value Normal MV Diastolic Function MV E Peak Velocity 87 cm/s MV A Peak Velocity 32 cm/s MV E/A 2.7 MV Decel Time (PW) 146 ms MV Annular TDI MV E/e' (Septal) 13.2 MV E/e' (Lateral) 7.3 MV E/e' (Average) 10.3 Tricuspid Valve Name Value Normal TV Regurgitation Doppler TR Peak Velocity 379 cm/s TR Peak Gradient 54 mmHg Estimated PAP/RSVP RA Pressure 15 mmHg <=5 PA Systolic Pressure 72 mmHg <36 RV Systolic Pressure 72 mmHg <36 Aortic Valve Name Value Normal AV Doppler AV Peak Velocity 189 cm/s AV Peak Gradient 14 mmHg AV Area (Cont Eq Can) 1.6 cm2 AV DI (Can) 0.50 AV Regurgitation 2D LVOT Area 3.2 cm2 Ventricles Name Value Normal LV Dimensions 2D/MM IVS Diastolic Thickness (2D) 1.6 cm 0.6-1.0 LVID Diastole (2D) 4.4 cm 4.2-5.8 LVIW Diastolic Thickness (2D) 1.7 cm 0.6-1.0 LVID Systole (2D) 3.5 cm 2.5-4.0 LVOT Diameter 2.0 cm LV Mass (2D Cubed) 318.49 g 88.00-224.00 LV Mass Index (2D Cubed) 130 g/m2 49-115 Relative Wall Thickness (2D) 0.78 <=0.42 LV Fractional Shortening/Ejection Fraction 2D/MM LV Fractional Shortening (2D) 22 % 25-43 LV EF (2D Teichholz) 45 % LV Diastolic Volume (4C MOD) 98 ml LV EF (4C MOD) 54 % LV Diastolic Volume (2C MOD) 43 ml LV EF (2C MOD) 49 % LV Diastolic Volume (BP MOD) 73 ml 62-150 LV Diastolic Volume Index (BP MOD) 30 ml/m2 34-74 LV Systolic Volume (BP MOD) 34 ml 21-61 LV Systolic Volume Index (BP MOD) 14 ml/m2 11-31 LV EF (BP MOD) 54 % 52-72 LV Diastolic Length (4C) 9.3 cm LV Systolic Length (4C) 8.5 cm LV Stroke Volume (4C MOD) 53 ml RV Dimensions 2D/MM TAPSE 0.9 cm >=1.7 Atria Name Value Normal LA Dimensions LA Volume (4C A-L) 89 ml LA Volume (BP A-L) 91 ml RA Dimensions RA Systolic [place] Length (4C) 7.5 cm 2.1-2.7 RA Area (4C) 36.9 cm2 <=18.0 Wall Motion Scoring Wall Motion Scoring Index: 1.18 Report Signatures
[2025-04-15] MEDS: HYDROmorphone HCL INJ (*CRX) 2 MG/ML VIAL 0.5 MG IV PUSH ×2 (03:14→08:43)
[2025-04-15] MEDS: PERFLUTREN LIPID MICROSPHERES 1.5 ML VIAL DILUTED TO 10 ML TOTAL VOLUME IV PUSH (09:30)
[2025-04-15] MEDS: LACTATED RINGERS 1,000 ML 30 ML IV CONT (09:55)
--- NOTE | 2025-04-15 09:56 | IVDEFINITY ---
Prior to administration of IV Definity the patient was educated on the risks and benefits of the imaging enhancing agent including potential adverse side effects. The patient verbalized understanding. Allergies were verified. No exclusion criteria were identified and at least one of the following inclusion criteria were met: 1) physician request, 2) patient technically difficult to image (per the [place] [employer]ocardi[employer] guidelines of two or more segments not discernable within the apical view), or 3) questionable left ventricular function. ?
--- NOTE | 2025-04-15 10:26 | WPDANESEPPF ---
Anes - Initial Pre Proc Eval Procedure: Operation Date: 04/15/25 10:30 Proposed Procedures p Right Bipolar Hip Replacement(Right) - Ziggy Gardner MD Date/Time: 04/15/25 10:26 Surgeon: Patricia Cabral MD Pre Op Diagnosis: right femoral neck fracture Patient Data Age: 79 Gender: M Height: 1.83 m Weight: 116.7 kg Last Vital Signs Temp 37.6 C H 04/15/25 04:51 Pulse 120 H 04/15/25 08:45 Resp 16 04/15/25 04:51 BP 126/71 04/15/25 04:51 Pulse Ox 99 04/15/25 04:51 O2 Del Method Room Air 04/14/25 12:03 Allergies Allergy/AdvReac Type Severity Reaction Status Date / Time Penicillins Allergy Severe Anaphylaxis Verified 04/13/25 18:31 liraglutide Allergy Unknown Hives / Verified 04/13/25 18:31 Red Face Uvtmnej-DER-XlI Reductase AdvReac Unknown Muscle Verified 04/13/25 18:31 Inhibitor (Qatphbe-Ktb-Wir Spasms Reductase Inhibitor) Home Medications ?Medication ?Instructions ?Recorded ?Confirmed ?Type evolocumab 140 mg/mL subcutaneous 140 mg subcut [id number] 05/07/21 01/25/25 History pen injector (Aman Ryder) pen needle, diabetic 31 gauge x #1,200 ea 05/28/22 01/25/25 Rx 5/16 (BD Ultra-Fine Short Pen Needle) ranolazine 500 mg tablet,extended 500 mg PO Q12H #60 tabs 08/16/22 01/25/25 Rx release,12 hr losartan 25 mg tablet 12.5 mg PO BID 05/15/23 01/25/25 History apixaban 5 mg tablet (Eliquis) 5 mg PO Q12HR #60 tabs 05/25/23 04/13/25 Rx furosemide 40 mg tablet (Lasix) 40 mg PO DAILY #30 tabs 09/01/23 01/25/25 Rx spironolactone 25 mg tablet 25 mg PO DAILY 09/01/23 01/25/25 History acetaminophen 325 mg tablet (Pain 650 mg (2 x 325 mg) PO Q6H PRN 11/14/23 04/13/25 Rx Reliever (acetaminophen)) Pain (Scale Score 1-3) #300 tabs tramadol 50 mg tablet 50 mg PO Q6H PRN pain #100 tabs 02/20/24 01/25/25 Rx isosorbide dinitrate 30 mg tablet See Rx Instructions .Route 03/28/24 01/25/25 Rx .COMPLEX #270 tabs polysaccharide iron complex 150 mg 150 mg PO DAILY #90 caps 11/22/24 01/25/25 Rx iron capsule (Poly-Iron) pantoprazole 40 mg tablet,delayed 40 mg PO QAM #100 tabs 01/13/25 01/25/25 Rx release blood-glucose sensor (FreeStyle #2 ea 01/25/25 01/25/25 Rx [place] 3 Sensor device) carvedilol 12.5 mg tablet See Rx Instructions .Route 01/31/25 Rx .COMPLEX #200 tabs insulin glargine 100 unit/mL (3 See Rx Instructions .Route 03/14/25 Rx mL) subcutaneous pen (Lantus .COMPLEX #57 mL Solostar U-100 Insulin) nitroglycerin 0.4 mg sublingual See Rx Instructions .Route 04/07/25 Rx tablet .COMPLEX #100 tabs insulin aspart U-100 100 unit/mL See Rx Instructions .Route 04/11/25 Rx (3 mL) subcutaneous pen .COMPLEX #15 mL Laboratory Tests 04/14/25 04/14/25 04/14/25 06:37 10:35 11:26 POC Capillary Glucose 161 H mg/dl 148 H mg/dl (65-105) (65-105) Hemoglobin A1c 6.6 H % (<5.7) 04/14/25 04/14/25 04/15/25 16:43 20:06 07:49 POC Capillary Glucose 204 H mg/dl 189 H mg/dl 167 H mg/dl (65-105) (65-105) (65-105) Hemoglobin A1c Patient hx anesthesia problems: none Family hx anesthesia problems: none Results Review: All pre-operative results and documents have been reviewed as part of the pre-operative evaluation. [facility] Past Medical History Medical History Acute exacerbation of CHF (congestive heart failure) Skin tear of right lower leg without complication Pre-ulcerative corn or callous Kidney mass Pancreatic mass Nausea & vomiting Anemia Acquired deformity of left thigh Preoperative clearance Foot lesion Cellulitis Elsa tropicalis infection Hypotension Fall Bronchitis Elevated carbon dioxide level Alkaline phosphatase elevation Prostate cancer screening Body mass index (BMI) of 40.1 to 44.9 in adult Degenerative joint disease of knee Renal malignant neoplasm Prostate CA Intracranial atherosclerosis Eczema Hypertensive urgency Non-STEMI (non-ST elevated myocardial infarction) Most recent non-STEMI 12/11/2018 Obstructive sleep apnea Intolerant to CPAP Prostate cancer Renal cell carcinoma Elevated PSA, between 10 and less than 20 ng/ml Vertigo Morbid (severe) obesity due to excess calories Abnormality of gait CAD (coronary artery disease) Multivessel coronary artery disease with stents to the proximal and distal LAD, mid right coronary artery July 2014 with prior catheterization performed [facility] January 2018 had severe diffuse 3 vessel coronary artery disease with multiple stenoses of about 70% and mid to distal LAD between previously placed proximal and distal stents, 50-70% diffuse stenosis of the circumflex with a proximal stenosis of: To and total occlusion of a the marginal branch and diffuse distal right coronary artery disease with occluded RPDA referred for CABG DM neuropathy with neurologic complication GERD (gastroesophageal reflux disease) Dyslipidemia Hypertension Surgical History Surgical History Status post open reduction with internal fixation of fracture Of left leg at age 21 Stented coronary artery Hx of tonsillectomy S/P CABG (coronary artery bypass graft) (04/2018) YESENIA to LAD, vein graft to OM, radial graft to RPDA, RCA was diffusely diseased and not a great target for bypass, LAD was also diffusely diseased Family History Family History Father Family history of heart disease in male family member before age 55 Acute myocardial infarction Hypertension Mother Family history of heart disease in male family member before age 55 Acute myocardial infarction Emphysema of lung Asthma Sibling Family history of heart disease in male family member before age 55 Acute myocardial infarction Hypertension Polycystic kidney disease Sibling Family history of heart disease in male family member before age 55 Acute myocardial infarction Breast cancer Sibling Emphysema of lung Cerebrovascular accident Son Acute myocardial infarction Social History Social History Social History: He is and lives alone. He has an adult son and a daughter. 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 He is a lifelong nonsmoker and does not drink alcohol. Code status: Full code (he would not want to be on long-term life support or have a tracheostomy or PEG tube.) Surrogate decision maker: Adjacent (son) Smoking status: Never smoker Second hand tobacco smoke exposure: No Alcohol intake: never Substance use: never Substance use type: does not use Do You Feel Safe in your Home?: Yes Lack of Transportation: No Lack of Food: Sometimes True Current Housing: I Have Housing Concerned About Future Housing: YES Difficulty Paying Gas/Electric Bills: YES Difficulty Paying for Meds: YES Currently Unemployed: No Education: Decline to Answer Difficulty w/ Childcare or Family Care: No Living arrangements: alone Occupation/Education: retired Gender identity (if verbalized by the patient): Male Sexual Orientation (if Verbalized by the Patient): Straight or Heterosexual Spiritual care concerns: No Anes - Eval Final PreProcedure Day of Procedure 04/15/25 10:26 Patient weight: obese Heart: regular rate and rhythm Lungs: clear to auscultation Airway: Mallampati scale class II Neurological: alert and oriented Last oral intake: >/= 8 hours ASA classification: III Emergent: no Anesthetic plan: proceed Anesthesia type and monitoring: general ETT and standard monitoring Results Review: All pre-operative results and documents have been reviewed as part of the pre-operative evaluation. Informed Consent: The patient's anesthetic plan and its attendant risks and benefits were discussed with the patient/family/POA. Questions were solicited and answers provided to the satisfaction of the patient/family/POA.
--- NOTE | 2025-04-15 10:36 | WPDHPUPDATE1 ---
History and Physical Update Update Date/Time: 04/15/25 10:36 History and Physical has been reviewed, including an updated exam of the patient. There are NO changes in the patient's condition. Risks, benefits, and alternatives have been discussed and questions answered. Patient agrees to proceed with procedure.
[2025-04-15] MEDS: SODIUM CHLORIDE 0.9% IV 38.7 ML, MORPHINE SULFATE INJ (*CRX) 2 MG, ROPivacaine HCL 1% 2... INFILTRATE (11:38)
[2025-04-15] MEDS: ceFAZolin 2 GM in SODIUM CHLORIDE 0.9% IV 50 ML 100 ML IVPB ×2 (11:38→20:35)
[2025-04-15] MEDS: TRANEXAMIC ACID 1,000 MG/10 ML AMPUL 1000 MG IV PUSH (12:19)
--- NOTE | 2025-04-15 13:00 | W.PM.PROC2 ---
Procedure Note - Detailed Date of Procedure 04/15/25 Pre-op Diagnosis right femoral neck fracture Post-op Diagnosis Same Procedure Performed RIGHT HIP HEMIARTHROPLASTY WITH BIPOLAR PROSTHESIS Surgeon Ziggy Gardner MD Anesthesia General Description of Procedure THE PATIENT WAS TAKEN TO THE OPERATING ROOM IN STABLE CONDITION. HE WAS PLACED IN THE LATERAL DECUBITUS AND THE RIGHT LOWER EXTREMITY WAS PREPPED AND DRAPED IN THE STERILE FASHION. INCISION WAS MADE IN THE POSTERIOR LATERAL SIDE OF THE HIP, DOWN TO THE FASCIA LAYER. THE FASCIA WAS INCISED. THE HIP WAS EXPOSED. THE SHORT EXTERNAL ROTATORS WERE EXPOSED AND THERE WAS A LARGE HEMATOMA. THE CAPSULE WAS INCISED EXPOSING THE FRACTURE. THE FEMORAL HEAD WAS REMOVED. IT MEASURED 53 MM. AN OSTEOTOMY WAS MADE TO THE FEMORAL NECK ABOUT 1 CM PROXIMAL TO THE LESSER TROCHANTER. NEXT THE FEMUR WAS PREPARED WITH INITIAL CANAL FINDER THEN SEQUENTIAL BROACHING WAS PREFORMED TILL A #5 BROACH FIT WELL IN 15 OF ANTE VERSION. A 0 STANDARD OFFSET NECK BIPOLAR TRIAL IN A 53 MM SHELL WAS PLACED. THE SHUCK TEST WAS EXCELLENT AND THE STABILITY IN FLEXION AND ROTATION WAS EXCELLENT. LEG LENGTHS WERE GROSSLY EQUAL. TRIALS WERE REMOVED. A SHARIF STEM #5 PRESS FIT STEM WAS PLACED WITH A STANDARD OFFSET IN 15 DEG OF ANTEVERSION. A 0 BIPOLAR HEAD NECK TRIAL WAS PLACED AGAIN. THE HIP WAS TRIALED AND THE STABILITY WAS EXCELLENT WERE THE LEG LENGTHS AND THE SHUCK TEST. NEXT A BIPOLAR HEAD NECK 0 IMPLANT WITH A 53 MM COBALT CHROME SHELL WAS PLACED AND TRIALED ONCE AGAIN SHOWING EXCELLENT STABILITY AND GROSSLY EQUAL LEG LENGTHS. THE WOUND WAS IRRIGATED WITH STERILE BETADINE AND WATER FOR 3 MIN. THEN WASHED AGAIN. THE CAPSULE AND THE EXTERNAL ROTATORS WERE APPROXIMATED WITH NUMBER 1 VICRYL. THE FASCIA WITH No 2 QUIL AND THE SUB CUTANEOUS LAYER WITH 2-0 ABSORBABLE SUTURE WITH ISAIAH TO THE SKIN. PATIENT WAS PLACED BACK ON TO THE SUPINE POSITION AND WAS EXTUBATED. Estimated Blood Loss 400 Drains No Pathology None sent Complications No immediate complications Condition Stable Disposition PACU
[2025-04-15] MEDS: fentaNYL CITRATE INJ (*CRX) 100 MCG/2 ML VIAL 25 MCG IV PUSH ×4 (13:15→14:00)
--- NOTE | 2025-04-15 14:35 | PCPTNOTE ---
pt not in room yet at 1430, will follow
--- NOTE | 2025-04-15 16:12 | P.PNIM_ITS ---
Progress Note: A&P Assessment and Plan (1) Closed displaced fracture of right femoral neck: Code(s): S72.001A - Fracture of unspecified part of neck of right femur, initial encounter for closed fracture Status: Acute Assessment and Plan: Orthopedics consulted s/p right ORIF 04/15/2025 EKG AFib rate controlled 64 Chest x-ray without acute abnormality. Pulmonary congestion noted received a dose of Lasix. Pain management and bowel protocol (2) Hypertension: Qualifiers: Hypertension type: essential hypertension Qualified Code(s): I10 - Essential (primary) hypertension Code(s): I10 - Essential (primary) hypertension Status: Chronic Assessment and Plan: BP range is 80s-130s Systolic/40s-60s Diastolic * Continue to trend VS. (3) Chronic diastolic (congestive) heart failure: Code(s): I50.32 - Chronic diastolic (congestive) heart failure Status: Chronic Assessment and Plan: Pulmonary congestion seen on chest x-ray stop IV fluids IV Lasix x1 * Last ECHO 05/20/23 shows normal LVSF w/EF of 60-65%, and Grade III Diastolic dysfunction * Currently pt appears euvolemic. * Repeat ECHO ordered. (4) CAD (coronary artery disease): Qualifiers: Coronary Disease-Associated Artery/Lesion type: [place] artery [place] vs. transplanted heart: [place] heart Associated angina: with stable angina Qualified Code(s): I25.118 - Atherosclerotic heart disease of [place] coronary artery with other forms of angina pectoris Code(s): I25.10 - Atherosclerotic heart disease of [place] coronary artery without angina pectoris Status: Acute Assessment and Plan: stable (5) Atrial fibrillation: Qualifiers: Atrial fibrillation type: persistent (not longstanding) Qualified Code(s): I48.19 - Other persistent atrial fibrillation Code(s): I48.91 - Unspecified atrial fibrillation Status: Chronic Assessment and Plan: Continue carvedilol * Holding Eliquis in the setting of upcoming surgery. * Carvedilol 12.5 mg Q12 hrs for rate control. Pulse ranging 50s-80s. * resumed post op (6) Insulin dependent type 2 diabetes mellitus: Code(s): E11.9 - Type 2 diabetes mellitus without complications; Z79.4 - [employer] (current) use of insulin Status: Chronic Assessment and Plan: ssi a1c 6.6 (7) CKD (chronic kidney disease): Qualifiers: Chronic kidney disease stage: stage 3 (moderate) Chronic kidney disease stage 3 subtype: unspecified whether 3a or 3b Qualified Code(s): N18.30 - Chronic kidney disease, stage 3 unspecified Code(s): N18.9 - Chronic kidney disease, unspecified Status: Chronic Assessment and Plan: * Appears to be at Baseline with Cr/BUN 1.44/35 respectively. (8) Anemia associated with chemotherapy: Code(s): D64.81 - Anemia due to antineoplastic chemotherapy; T45.1X5A - Adverse effect of antineoplastic and immunosuppressive drugs, initial encounter Status: Acute Assessment and Plan: * Stable H&H at this time at 10.4/32.2. * No active bleeding or obvious hematoma development at the site of injury. Subjective Date/time seen: 04/15/25 16:12 Interval history: no overnight events. seen after surgery. patient denies any sob, chest pain. patient is a bit sleepy. family at bedside. Review of Systems Review of Systems: All systems reviewed & are unremarkable except as noted in HPI and below Exam Narrative: General: well appearing, appears stated age.not in acute distress HEENT: normocephalic, atraumatic. Mucous membranes moist. EOMI, PERRLA Respiratory: clear to ascultation bilaterally. No rales/rhonic/wheezes. Cardiovascular: Regular rate and rhythm, normal S1-S2 upon ascultation. No murmurs, rubs, or clicks. Abdomen: Soft, round, no pulsatile masses, nondistended and nontender. No rebound, no guarding. No CVA tenderness Extremities: No cyanosis, clubbing, or edema present. Pulses are palpable 2/2. Neuro: Alert and orientated x 4. PERRLA. Cranial nerves 2-12 intact without focal deficit. Skin: Warm, dry, and intact, without rash, erythema, or lesion. Psych: pleasant, cooperative, normal speech, normal affect, no hallucinations, no dysarthia Objective Data Vital Signs Vital Signs: Vital Signs - 24 hr 04/14/25 20:03 04/14/25 21:08 04/15/25 04:51 Temperature 99.4 F 99.7 F H Pulse Rate 64 65 80 Respiratory Rate 18 16 Blood Pressure 123/69 126/71 Pulse Oximetry 99 99 Oxygen Delivery Oxygen Flow Rate 04/15/25 08:45 04/15/25 13:00 04/15/25 13:15 Temperature Pulse Rate 120 H 89 90 Respiratory Rate 13 14 Blood Pressure 115/57 L 120/75 Pulse Oximetry 100 100 Oxygen Delivery Simple Face Mask Room Air Oxygen Flow Rate 8 04/15/25 13:30 04/15/25 13:45 04/15/25 14:00 Temperature Pulse Rate 90 91 92 Respiratory Rate 13 14 21 H Blood Pressure 107/56 L 101/53 L 104/68 Pulse Oximetry 95 95 97 Oxygen Delivery Room Air Room Air Room Air Oxygen Flow Rate 04/15/25 14:15 Temperature 98.2 F Pulse Rate 91 Respiratory Rate 20 Blood Pressure 107/56 L Pulse Oximetry 94 Oxygen Delivery Room Air Oxygen Flow Rate Intake/Output Intake/Output: Intake & Output 04/12/25 04/13/25 04/14/25 04/15/25 23:59 23:59 23:59 23:59 Intake Total 400 680 550 Output Total 2500 1000 Balance 400 -1820 -450 Meds/Results Medications: Active Medications Generic Name Dose Route Start Last Admin Trade Name Freq PRN Reason Stop Dose Admin Acetaminophen 500 mg 04/15/25 14:41 Acetaminophen 500 Mg Tablet PO Q6H PRN Pain Rated 1-3 Apixaban 5 mg 04/13/25 21:00 Apixaban 5 Mg Tablet PO Q12HR [facility] Carvedilol 12.5 mg 04/14/25 09:00 04/15/25 08:45 Carvedilol 12.5 Mg Tablet PO 12.5 mg Q12HR [facility] Administration Dextrose 12.5 gm 04/13/25 19:34 Dextrose 50% 25 Gm/50 Ml Syringe IV PUSH PRN PRN Hypoglycemia Protocol Diazepam 5 mg 04/15/25 10:39 Diazepam (*Crx) 5 Mg Tablet PO Q8H PRN Muscle Spasm Diazepam 5 mg 04/15/25 14:41 Diazepam (*Crx) 5 Mg Tablet PO Q8H PRN Muscle Spasm Famotidine 20 mg 04/15/25 21:00 Famotidine 20 Mg Tablet PO Q12HR [facility] Famotidine 20 mg 04/15/25 21:00 Famotidine 20 Mg Tablet PO Q12HR [facility] Glucagon 1 mg 04/13/25 19:34 Glucagon For Inj 1 Mg Vial IM PRN PRN Hypoglycemia Protocol Glucose 15 gm 04/13/25 19:34 Glucose Oral Gel 15 Gm Of Glucse In 37.5 Gm Tube PO PRN PRN Hypoglycemia Protocol Hydromorphone HCl 1 mg 04/15/25 15:39 Hydromorphone Hcl Inj (*Crx) 2 Mg/Ml Vial IV PUSH Q2H PRN Breakthrough Pain Rated 7-10 or NPO Hydromorphone HCl 0.5 mg 04/15/25 15:40 Hydromorphone Hcl Inj (*Crx) 2 Mg/Ml Vial IV PUSH Q2H PRN Breakthrough Pain Rated 4-6 or NPO Hydroxyzine Pamoate 50 mg 04/15/25 10:39 Hydroxyzine Pamoate 25 Mg Capsule PO Q4H PRN Itching Dextrose 1,000 mls @ 100 mls/hr 04/13/25 19:34 Dextrose 5% 1,000 Ml IVPB PRN PRN Hypoglycemia Protocol Sodium Chloride 1,000 mls @ 125 mls/hr 04/15/25 10:40 Normal Saline Iv IV CONT .Q8H [facility] Ibuprofen 800 mg in 200 mls @ 400 mls/hr 04/15/25 10:39 Caldolor 800 Mg/200 Ml IVPB Q6H PRN Breakthrough Pain Rated 1-3 or NPO Cefazolin Sodium 2 gm/ Sodium 50 mls @ 100 mls/hr 04/15/25 20:00 Chloride IVPB 04/16/25 12:29 Q8H [facility] Sodium Chloride 1,000 mls @ 125 mls/hr 04/15/25 14:41 Normal Saline Iv IV CONT .Q8H [facility] Insulin Aspart 2 - 5 units 04/14/25 08:00 04/14/25 17:30 Insulin Aspart (*Bkc) 100 Units/Ml SUB-Q 2 units TIDWM [facility] Administration Protocol Insulin Glargine 18 units 04/13/25 21:00 04/14/25 21:00 Insulin Glargine (*Bkc) 100 Units/Ml 0.15 units/kg (18 units) 18 units SUB-Q Administration [facility] Naloxone HCl 0.1 mg 04/15/25 10:39 Naloxone Hcl 0.4 Mg/Ml Vial IV PUSH Q2M PRN Opiate Reversal Naloxone HCl 0.1 mg 04/15/25 14:41 Naloxone Hcl 0.4 Mg/Ml Vial IV PUSH Q2M PRN Opiate Reversal Ondansetron HCl 4 mg 04/15/25 10:39 Ondansetron Inj 4 Mg/2 Ml Vial IV PUSH Q4H PRN Nausea And Vomiting Ondansetron HCl 4 mg 04/15/25 14:41 Ondansetron Inj 4 Mg/2 Ml Vial IV PUSH Q4H PRN Nausea And Vomiting Oxycodone/Acetaminophen 1 tablet 04/15/25 14:41 Oxycodone/Acetaminophen (*Crx) 5-325 Mg Tablet PO Q4H PRN Pain Rated 4-6 Oxycodone/Acetaminophen 1 tab 04/15/25 14:41 Oxycodone/Acetaminophen (*Crx) 10-325 Mg Tablet PO Q6H PRN Pain Rated 7-10 Perflutren Lipid Microsphere 0 ml 04/15/25 09:55 Perflutren Lipid Microspheres 1.5 Ml Vial Diluted To 10 Ml Total Volume IV PUSH ONCE PRN adequate visualization Protocol Polyethylene Glycol 17 gm 04/16/25 09:00 Polyethylene Glycol 3350 17 Gm Powd.Pack PO QAM [facility] Polyethylene Glycol 17 gm 04/16/25 09:00 Polyethylene Glycol 3350 17 Gm Powd.Pack PO QAM [facility] Senna/Docusate Sodium 2 tab 04/15/25 17:00 Senna/Docusate Sodium Tablet PO BID [facility] Radiology Results: ITS Impressions Hip/Pelvis X-Ray 04/13/25 14:06 IMPRESSION: Acute partially comminuted fracture of the right femoral neck with overlap of the fracture fragments are noted. Hip CT 04/13/25 14:44 IMPRESSION: Acute displaced fracture of the right femoral neck with anterior displacement of the distal fracture segment. Chest X-Ray 04/13/25 17:51 IMPRESSION: Cardiomegaly with congestive yaya. Prominent markings in the lower lobes. Head CT 04/14/25 11:31 Impression: No significant abnormality seen. Labs Labs: Laboratory Results - last 24 hr 04/14/25 04/14/25 04/14/25 06:37 16:43 20:06 POC Capillary Glucose 204 H 189 H Hemoglobin A1c 6.6 H Blood Type Antibody Screen 04/15/25 04/15/25 04/15/25 07:49 10:41 14:35 POC Capillary Glucose 167 H 160 H Hemoglobin A1c Blood Type A Negative Antibody Screen Negative
[2025-04-15] MEDS: oxyCODONE/ACETAMINOPHEN (*CRX) 10-325 MG TABLET 1 TAB PO (17:13)
[2025-04-15] MEDS: SENNA/DOCUSATE SODIUM TABLET 2 TAB PO (17:14)
[2025-04-15] MEDS: SODIUM CHLORIDE 0.9% IV 1,000 ML 125 ML IV CONT ×2 (18:49→22:11)
[2025-04-15] MEDS: INSULIN GLARGINE (*BKC) 100 UNITS/ML 18 UNITS SUB-Q (21:46)
[2025-04-15] MEDS: FAMOTIDINE 20 MG TABLET PO (21:56)
[2025-04-15] MEDS: APIXABAN 5 MG TABLET PO (21:56)
[2025-04-16] VITALS (8 sets, daily range): BP systolic 106–121; BP diastolic 46–70; PULSE 93–101; RESP 14–18; TEMP 36.9–37.6; O2SAT 96–100
[2025-04-16] MEDS: oxyCODONE/ACETAMINOPHEN (*CRX) 10-325 MG TABLET 1 TAB PO ×2 (00:28→09:09)
[2025-04-16] MEDS: ceFAZolin 2 GM in SODIUM CHLORIDE 0.9% IV 50 ML 100 ML IVPB ×2 (04:49→13:18)
[2025-04-16] MEDS: SODIUM CHLORIDE 0.9% IV 1,000 ML 125 ML IV CONT (04:52)
[2025-04-16 06:41] LABS: Hematocrit 29.9 % (42.0-52.0); Hemoglobin 9.7 g/dL (14.0-18.0); Immature Granulocyte Percent A 0.7 % (0-0.5); Lymphocytes Absolute Auto 0.56 K/mm3 (0.9-3.2); Mean Corpuscular HGB Conc 32.4 g/dl (32-36); Mean Corpuscular Hemoglobin 33.3 pg (26-34); Mean Corpuscular Volume 102.7 fl (80-100); Nucleated Red Blood Cells Absolute Auto 0.000 K/mm3 (0.0-0.012); Nucleated Red Blood Cells Perc 0.0 % (0.0-0.2); Platelet Count Result 105 k/mm3 (150-375); Red Blood Count 2.91 M/mm3 (4.6-6.20); White Blood Count 10.5 K/mm3 (4.5-10.0)
[2025-04-16 06:52] LABS: Anion Gap 5 mmol/L (4-12); Blood Urea Nitrogen 40 mg/dL (9-20); Calcium 8.7 mg/dL (8.4-10.2); Carbon Dioxide 25 mmol/L (22-30); Chloride 104 mmol/L (98-107); Estimated CRCL calculation 48 ml/min; Estimated Glomerular Filt Rate 46; Glucose 154 mg/dL (65-110); Magnesium 1.8 mg/dL (1.6-2.3); Potassium 5.2 mmol/L (3.4-5.0); Sodium 134 mmol/L (137-145)
[2025-04-16] MEDS: SENNA/DOCUSATE SODIUM TABLET 2 TAB PO ×2 (09:09→17:42)
[2025-04-16] MEDS: FAMOTIDINE 20 MG TABLET PO ×2 (09:11→20:27)
[2025-04-16] MEDS: APIXABAN 5 MG TABLET PO ×2 (09:11→20:27)
--- NOTE | 2025-04-16 12:33 | P.PNIM_ITS ---
Progress Note: A&P Assessment and Plan (1) Closed displaced fracture of right femoral neck: Code(s): S72.001A - Fracture of unspecified part of neck of right femur, initial encounter for closed fracture Status: Acute Assessment and Plan: Orthopedics consulted s/p right ORIF 04/15/2025 EKG AFib rate controlled 64 Chest x-ray without acute abnormality. Pulmonary congestion noted received a dose of Lasix. Pain management and bowel protocol (2) Hypertension: Qualifiers: Hypertension type: essential hypertension Qualified Code(s): I10 - Essential (primary) hypertension Code(s): I10 - Essential (primary) hypertension Status: Chronic Assessment and Plan: BP range is 80s-130s Systolic/40s-60s Diastolic * Continue to trend VS. (3) Chronic diastolic (congestive) heart failure: Code(s): I50.32 - Chronic diastolic (congestive) heart failure Status: Chronic Assessment and Plan: Pulmonary congestion seen on chest x-ray stop IV fluids IV Lasix x1 * Last ECHO 05/20/23 shows normal LVSF w/EF of 60-65%, and Grade III Diastolic dysfunction * Currently pt appears euvolemic. * Repeat ECHO with EF 55-60% grade 2 diastolic dysfunction severe pulmonary hypertension moderate to severe tricuspid regurgitation (4) CAD (coronary artery disease): Qualifiers: Coronary Disease-Associated Artery/Lesion type: [place] artery [place] vs. transplanted heart: [place] heart Associated angina: with stable angina Qualified Code(s): I25.118 - Atherosclerotic heart disease of [place] coronary artery with other forms of angina pectoris Code(s): I25.10 - Atherosclerotic heart disease of [place] coronary artery without angina pectoris Status: Acute Assessment and Plan: stable (5) Atrial fibrillation: Qualifiers: Atrial fibrillation type: persistent (not longstanding) Qualified Code(s): I48.19 - Other persistent atrial fibrillation Code(s): I48.91 - Unspecified atrial fibrillation Status: Chronic Assessment and Plan: Continue carvedilol * Holding Eliquis in the setting of upcoming surgery. * Carvedilol 12.5 mg Q12 hrs for rate control. Pulse ranging 50s-80s. 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 (8) Anemia associated with chemotherapy: Code(s): D64.81 - Anemia due to antineoplastic chemotherapy; T45.1X5A - Adverse effect of antineoplastic and immunosuppressive drugs, initial encounter Status: Acute Assessment and Plan: * Stable H&H at this time at 10.4/32.2. * No active bleeding or obvious hematoma development at the site of injury. Subjective Date/time seen: 04/16/25 12:33 Interval history: No overnight events. No new complaints. Pain control. Work with therapy earlier today. Review of Systems Review of Systems: All systems reviewed & are unremarkable except as noted in HPI and below Exam Narrative: General: well appearing, appears stated age.not in acute distress HEENT: normocephalic, atraumatic. Mucous membranes moist. EOMI, PERRLA Respiratory: clear to ascultation bilaterally. No rales/rhonic/wheezes. Cardiovascular: Regular rate and rhythm, normal S1-S2 upon ascultation. No murmurs, rubs, or clicks. Abdomen: Soft, round, no pulsatile masses, nondistended and nontender. No rebound, no guarding. No CVA tenderness Extremities: No cyanosis, clubbing, or edema present. Pulses are palpable 2/2. Neuro: Alert and orientated x 4. PERRLA. Cranial nerves 2-12 intact without focal deficit. Skin: Warm, dry, and intact, without rash, erythema, or lesion. Psych: pleasant, cooperative, normal speech, normal affect, no hallucinations, no dysarthia Objective Data Vital Signs Vital Signs: Vital Signs - 24 hr 04/15/25 13:00 04/15/25 13:15 04/15/25 13:30 Temperature Pulse Rate 89 90 90 Respiratory Rate 13 14 13 Blood Pressure 115/57 L 120/75 107/56 L Pulse Oximetry 100 100 95 Oxygen Delivery Simple Face Mask Room Air Room Air Oxygen Flow Rate 8 04/15/25 13:45 04/15/25 14:00 04/15/25 14:15 Temperature 98.2 F Pulse Rate 91 92 91 Respiratory Rate 14 21 H 20 Blood Pressure 101/53 L 104/68 107/56 L Pulse Oximetry 95 97 94 Oxygen Delivery Room Air Room Air Room Air Oxygen Flow Rate 04/15/25 14:41 04/15/25 14:56 04/15/25 15:26 Temperature 98.0 F 98.0 F 98.0 F Pulse Rate 94 94 94 Respiratory Rate 18 18 18 Blood Pressure 109/53 L 106/58 L 101/53 L Pulse Oximetry 97 98 97 Oxygen Delivery Oxygen Flow Rate 04/15/25 15:55 04/15/25 16:26 04/15/25 20:44 Temperature 98.0 F 99.3 F Pulse Rate 95 96 Respiratory Rate 18 18 Blood Pressure 100/53 L 105/48 L Pulse Oximetry 98 98 96 Oxygen Delivery Room Air Oxygen Flow Rate 04/16/25 00:30 04/16/25 04:54 04/16/25 08:00 Temperature 99.6 F 98.7 F 99.3 F Pulse Rate 95 95 95 Respiratory Rate 18 14 16 Blood Pressure 106/58 L 112/46 L 114/55 L Pulse Oximetry 97 98 100 Oxygen Delivery Oxygen Flow Rate 04/16/25 09:11 04/16/25 09:59 04/16/25 10:15 Temperature Pulse Rate 95 Respiratory Rate Blood Pressure Pulse Oximetry Oxygen Delivery Room Air Room Air Oxygen Flow Rate Intake/Output Intake/Output: Intake & Output 04/13/25 04/14/25 04/15/25 04/16/25 23:59 23:59 23:59 23:59 Intake Total 146 985 0847.8 1625.4 Output Total 2500 1000 450 Balance 400 -1820 20.8 1175.4 Meds/Results Medications: Active Medications Generic Name Dose Route Start Last Admin Trade Name Freq PRN Reason Stop Dose Admin Acetaminophen 500 mg 04/15/25 14:41 Acetaminophen 500 Mg Tablet PO Q6H PRN Pain Rated 1-3 Apixaban 5 mg 04/13/25 21:00 04/16/25 09:11 Apixaban 5 Mg Tablet PO 5 mg Q12HR [facility] Administration Carvedilol 12.5 mg 04/14/25 09:00 04/16/25 09:11 Carvedilol 12.5 Mg Tablet PO 12.5 mg Q12HR [facility] Administration Dextrose 12.5 gm 04/13/25 19:34 Dextrose 50% 25 Gm/50 Ml Syringe IV PUSH PRN PRN Hypoglycemia Protocol Diazepam 5 mg 04/15/25 14:41 Diazepam (*Crx) 5 Mg Tablet PO Q8H PRN Muscle Spasm Famotidine 20 mg 04/15/25 21:00 04/16/25 09:11 Famotidine 20 Mg Tablet PO 20 mg Q12HR [facility] Administration Glucagon 1 mg 04/13/25 19:34 Glucagon For Inj 1 Mg Vial IM PRN PRN Hypoglycemia Protocol Glucose 15 gm 04/13/25 19:34 Glucose Oral Gel 15 Gm Of Glucse In 37.5 Gm Tube PO PRN PRN Hypoglycemia Protocol Hydromorphone HCl 1 mg 04/15/25 15:39 Hydromorphone Hcl Inj (*Crx) 2 Mg/Ml Vial IV PUSH Q2H PRN Breakthrough Pain Rated 7-10 or NPO Hydromorphone HCl 0.5 mg 04/15/25 15:40 Hydromorphone Hcl Inj (*Crx) 2 Mg/Ml Vial IV PUSH Q2H PRN Breakthrough Pain Rated 4-6 or NPO Hydroxyzine Pamoate 50 mg 04/15/25 10:39 Hydroxyzine Pamoate 25 Mg Capsule PO Q4H PRN Itching Dextrose 1,000 mls @ 100 mls/hr 04/13/25 19:34 Dextrose 5% 1,000 Ml IVPB PRN PRN Hypoglycemia Protocol Ibuprofen 800 mg in 200 mls @ 400 mls/hr 04/15/25 10:39 Caldolor 800 Mg/200 Ml IVPB Q6H PRN Breakthrough Pain Rated 1-3 or NPO Sodium Chloride 1,000 mls @ 125 mls/hr 04/15/25 14:41 04/16/25 04:52 Normal Saline Iv IV CONT 125 mls/hr .Q8H [facility] Administration Insulin Aspart 2 - 5 units 04/14/25 08:00 04/16/25 12:25 Insulin Aspart (*Bkc) 100 Units/Ml SUB-Q Not Given TIDWM [facility] Protocol Insulin Glargine 18 units 04/13/25 21:00 04/15/25 21:46 Insulin Glargine (*Bkc) 100 Units/Ml 0.15 units/kg (18 units) 18 units SUB-Q Administration HS [facility] Naloxone HCl 0.1 mg 04/15/25 14:41 Naloxone Hcl 0.4 Mg/Ml Vial IV PUSH Q2M PRN Opiate Reversal Ondansetron HCl 4 mg 04/15/25 14:41 Ondansetron Inj 4 Mg/2 Ml Vial IV PUSH Q4H PRN Nausea And Vomiting Oxycodone/Acetaminophen 1 tablet 04/15/25 14:41 Oxycodone/Acetaminophen (*Crx) 5-325 Mg Tablet PO Q4H PRN Pain Rated 4-6 Oxycodone/Acetaminophen 1 tab 04/15/25 14:41 04/16/25 09:09 Oxycodone/Acetaminophen (*Crx) 10-325 Mg Tablet PO 1 tab Q6H PRN Administration Pain Rated 7-10 Perflutren Lipid Microsphere 0 ml 04/15/25 09:55 Perflutren Lipid Microspheres 1.5 Ml Vial Diluted To 10 Ml Total Volume IV PUSH ONCE PRN adequate visualization Protocol Polyethylene Glycol 17 gm 04/16/25 09:00 04/16/25 09:09 Polyethylene Glycol 3350 17 Gm Powd.Pack PO 17 gm QAM [facility] Administration Senna/Docusate Sodium 2 tab 04/15/25 17:00 04/16/25 09:09 Senna/Docusate Sodium Tablet PO 2 tab BID [facility] Administration Radiology Results: ITS Impressions Hip/Pelvis X-Ray 04/13/25 14:06 IMPRESSION: Acute partially comminuted fracture of the right femoral neck with overlap of the fracture fragments are noted. Hip CT 04/13/25 14:44 IMPRESSION: Acute displaced fracture of the right femoral neck with anterior displacement of the distal fracture segment. Chest X-Ray 04/13/25 17:51 IMPRESSION: Cardiomegaly with congestive yaya. Prominent markings in the lower lobes. Head CT 04/14/25 11:31 Impression: No significant abnormality seen. Labs Labs: Laboratory Results - last 24 hr 04/15/25 04/15/25 04/15/25 14:35 17:00 20:46 WBC RBC Hgb Hct MCV MCH MCHC RDW Plt Count MPV Immature Gran % (Auto) Neut % (Auto) Lymph % (Auto) [place]ccone % (Auto) Eos % (Auto) Baso % (Auto) Lymph # (Auto) [place] # (Auto) Eos # (Auto) Baso # (Auto) Abs Immat Gran (auto) Absolute Neuts (auto) Absolute Nucleated RBC Nucleated RBC % Sodium Potassium Chloride Carbon Dioxide Anion Gap BUN Creatinine Estim Creat Clear Calc Estimated GFR Glucose POC Capillary Glucose 160 H 152 H 160 H Calcium Magnesium 04/16/25 04/16/25 04/16/25 05:26 07:36 11:52 WBC 10.5 H RBC 2.91 L Hgb 9.7 L Hct 29.9 L MCV 102.7 H MCH 33.3 MCHC 32.4 RDW 13.6 Plt Count 105 L MPV 10.6 H Immature Gran % (Auto) 0.7 H Neut % (Auto) 82.3 H Lymph % (Auto) 5.3 L Mccone % (Auto) 11.1 H Eos % (Auto) 0.3 Baso % (Auto) 0.3 Lymph # (Auto) 0.56 L Mccone # (Auto) 1.2 H Eos # (Auto) 0.0 Baso # (Auto) 0.0 Abs Immat Gran (auto) 0.07 H Absolute Neuts (auto) 8.6 H Absolute Nucleated RBC 0.000 Nucleated RBC % 0.0 Sodium 134 L Potassium 5.2 H Chloride 104 Carbon Dioxide 25 Anion Gap 5 BUN 40 H Creatinine 1.47 H Estim Creat Clear Calc 48 Estimated GFR 46 L Glucose 154 H POC Capillary Glucose 140 H 180 H Calcium 8.7 Magnesium 1.8
[2025-04-16] MEDS: INSULIN GLARGINE (*BKC) 100 UNITS/ML 18 UNITS SUB-Q (20:27)
[2025-04-16] MEDS: oxyCODONE/ACETAMINOPHEN (*CRX) 5-325 MG TABLET 1 TABLET PO (20:51)
[2025-04-16] MEDS: HYDROmorphone HCL INJ (*CRX) 2 MG/ML VIAL 1 MG IV PUSH (22:28)
[2025-04-17] VITALS: BP 135/76
[2025-04-17 05:02] VITALS: BP 104/57; PULSE 95; RESP 18; TEMP 36.9; O2SAT 95
[2025-04-17 06:34] LABS: Hematocrit 28.0 % (42.0-52.0); Hemoglobin 9.3 g/dL (14.0-18.0); Immature Granulocyte Percent A 0.5 % (0-0.5); Lymphocytes Absolute Auto 0.65 K/mm3 (0.9-3.2); Mean Corpuscular HGB Conc 33.2 g/dl (32-36); Mean Corpuscular Hemoglobin 33.3 pg (26-34); Mean Corpuscular Volume 100.4 fl (80-100); Nucleated Red Blood Cells Absolute Auto 0.000 K/mm3 (0.0-0.012); Nucleated Red Blood Cells Perc 0.0 % (0.0-0.2); Platelet Count Result 125 k/mm3 (150-375); Red Blood Count 2.79 M/mm3 (4.6-6.20); White Blood Count 9.1 K/mm3 (4.5-10.0)
[2025-04-17 07:17] LABS: Alanine Aminotransferase 15 U/L (6-50); Albumin Level 2.8 g/dL (3.5-5.1); Alkaline Phosphatase 157 U/L (38-126); Anion Gap 5 mmol/L (4-12); Aspartate Amino Transferase 34 U/L (17-59); Bilirubin,Total 1.5 mg/dL (0.2-1.3); Blood Urea Nitrogen 49 mg/dL (9-20); Calcium 8.6 mg/dL (8.4-10.2); Carbon Dioxide 23 mmol/L (22-30); Chloride 103 mmol/L (98-107); Estimated CRCL calculation 45 ml/min; Estimated Glomerular Filt Rate 42; Glucose 153 mg/dL (65-110); Magnesium 2.0 mg/dL (1.6-2.3); Potassium 5.1 mmol/L (3.4-5.0); Sodium 131 mmol/L (137-145); Total Protein 6.3 g/dL (6.3-8.2)
[2025-04-17] MEDS: APIXABAN 5 MG TABLET PO ×2 (09:11→22:21)
[2025-04-17] MEDS: SENNA/DOCUSATE SODIUM TABLET 2 TAB PO ×2 (09:11→17:11)
[2025-04-17] MEDS: FAMOTIDINE 20 MG TABLET PO ×2 (09:11→22:21)
[2025-04-17 09:12] VITALS: PULSE 95
[2025-04-17] MEDS: oxyCODONE/ACETAMINOPHEN (*CRX) 10-325 MG TABLET 1 TAB PO (09:19)
--- NOTE | 2025-04-17 12:02 | P.PNIM_ITS ---
Progress Note: A&P Assessment and Plan (1) Closed displaced fracture of right femoral neck: Code(s): S72.001A - Fracture of unspecified part of neck of right femur, initial encounter for closed fracture Status: Acute Assessment and Plan: Orthopedics consulted s/p right ORIF 04/15/2025 EKG AFib rate controlled 64 Chest x-ray without acute abnormality. Pulmonary congestion noted received a dose of Lasix. Pain management and bowel protocol (2) Hypertension: Qualifiers: Hypertension type: essential hypertension Qualified Code(s): I10 - Essential (primary) hypertension Code(s): I10 - Essential (primary) hypertension Status: Chronic Assessment and Plan: Home medication (3) Chronic diastolic (congestive) heart failure: Code(s): I50.32 - Chronic diastolic (congestive) heart failure Status: Chronic Assessment and Plan: Pulmonary congestion seen on chest x-ray stop IV fluids IV Lasix x1 * Last ECHO 05/20/23 shows normal LVSF w/EF of 60-65%, and Grade III Diastolic dysfunction * Currently pt appears euvolemic. * Repeat ECHO with EF 55-60% grade 2 diastolic dysfunction severe pulmonary hypertension moderate to severe tricuspid regurgitation (4) CAD (coronary artery disease): Qualifiers: Coronary Disease-Associated Artery/Lesion type: [place] artery [place] vs. transplanted heart: [place] heart Associated angina: with stable angina Qualified Code(s): I25.118 - Atherosclerotic heart disease of [place] coronary artery with other forms of angina pectoris Code(s): I25.10 - Atherosclerotic heart disease of [place] coronary artery without angina pectoris Status: Acute Assessment and Plan: stable (5) Atrial fibrillation: Qualifiers: Atrial fibrillation type: persistent (not longstanding) Qualified Code(s): I48.19 - Other persistent atrial fibrillation Code(s): I48.91 - Unspecified atrial fibrillation Status: Chronic Assessment and Plan: Continue carvedilol * Holding Eliquis in the setting of upcoming surgery. * Carvedilol 12.5 mg Q12 hrs for rate control. Pulse ranging 50s-80s. * resumed post op (6) Insulin dependent type 2 diabetes mellitus: Code(s): E11.9 - Type 2 diabetes mellitus without complications; Z79.4 - terminal clerk (current) use of insulin Status: Chronic Assessment and Plan: ssi a1c 6.6 (7) CKD (chronic kidney disease): Qualifiers: Chronic kidney disease stage: stage 3 (moderate) Chronic kidney disease stage 3 subtype: unspecified whether 3a or 3b Qualified Code(s): N18.30 - Chronic kidney disease, stage 3 unspecified Code(s): N18.9 - Chronic kidney disease, unspecified Status: Chronic Assessment and Plan: * Appears to be at Baseline with Cr/BUN 1.44/35 respectively. Slight uptick today. Will continue to monitor (8) Anemia associated with chemotherapy: Code(s): D64.81 - Anemia due to antineoplastic chemotherapy; T45.1X5A - Adverse effect of antineoplastic and immunosuppressive drugs, initial encounter Status: Acute Assessment and Plan: * Stable H&H at this time at 10.4/32.2. * No active bleeding or obvious hematoma development at the site of injury. Subjective Date/time seen: 04/17/25 12:02 Interval history: No overnight events. Eating okay. Working with therapy. Reports pain in his surgical site. Discussed with nursing staff. Discussed with son at bedside. Review of Systems Review of Systems: All systems reviewed & are unremarkable except as noted in HPI and below Exam Narrative: General: well appearing, appears stated age.not in acute distress HEENT: normocephalic, atraumatic. Mucous membranes moist. EOMI, PERRLA Respiratory: clear to ascultation bilaterally. No rales/rhonic/wheezes. Cardiovascular: Regular rate and rhythm, normal S1-S2 upon ascultation. No murmurs, rubs, or clicks. Abdomen: Soft, round, no pulsatile masses, nondistended and nontender. No rebound, no guarding. No CVA tenderness Extremities: No cyanosis, clubbing, or edema present. Pulses are palpable 2/2. Neuro: Alert and orientated x 4. PERRLA. Cranial nerves 2-12 intact without focal deficit. Skin: Warm, dry, and intact, without rash, erythema, or lesion. Psych: pleasant, cooperative, normal speech, normal affect, no hallucinations, no dysarthia Objective Data Vital Signs Vital Signs: Vital Signs - 24 hr 04/16/25 16:00 04/16/25 20:00 04/16/25 20:00 Temperature 99.0 F Pulse Rate 97 Respiratory Rate 16 Blood Pressure 106/51 L Pulse Oximetry 98 97 Oxygen Delivery Room Air Room Air Fraction of Inspired Oxygen 21 04/16/25 20:14 04/17/25 00:00 04/17/25 05:02 Temperature 98.5 F 98.4 F Pulse Rate 101 H 95 Respiratory Rate 16 18 Blood Pressure 121/53 L 135/76 104/57 L Pulse Oximetry 96 95 Oxygen Delivery Fraction of Inspired Oxygen 04/17/25 09:12 04/17/25 09:40 04/17/25 11:17 Temperature Pulse Rate 95 Respiratory Rate Blood Pressure Pulse Oximetry Oxygen Delivery Room Air Room Air Fraction of Inspired Oxygen Intake/Output Intake/Output: Intake & Output 04/14/25 04/15/25 04/16/25 04/17/25 23:59 23:59 23:59 23:59 Intake Total 680 1020.8 2955.4 850 Output Total 2500 1000 900 575 Balance -1820 20.8 2055.4 275 Meds/Results Medications: Active Medications Generic Name Dose Route Start Last Admin Trade Name Freq PRN Reason Stop Dose Admin Acetaminophen 500 mg 04/15/25 14:41 Acetaminophen 500 Mg Tablet PO Q6H PRN Pain Rated 1-3 Apixaban 5 mg 04/13/25 21:00 04/17/25 09:11 Apixaban 5 Mg Tablet PO 5 mg Q12HR YUNIOR Administration Carvedilol 12.5 mg 04/14/25 09:00 04/17/25 09:12 Carvedilol 12.5 Mg Tablet PO Not Given Q12HR YUNIOR Dextrose 12.5 gm 04/13/25 19:34 Dextrose 50% 25 Gm/50 Ml Syringe IV PUSH PRN PRN Hypoglycemia Protocol Diazepam 5 mg 04/15/25 14:41 Diazepam (*Crx) 5 Mg Tablet PO Q8H PRN Muscle Spasm Famotidine 20 mg 04/15/25 21:00 04/17/25 09:11 Famotidine 20 Mg Tablet PO 20 mg Q12HR YUNIOR Administration Glucagon 1 mg 04/13/25 19:34 Glucagon For Inj 1 Mg Vial IM PRN PRN Hypoglycemia Protocol Glucose 15 gm 04/13/25 19:34 Glucose Oral Gel 15 Gm Of Glucse In 37.5 Gm Tube PO PRN PRN Hypoglycemia Protocol Hydromorphone HCl 1 mg 04/15/25 15:39 04/16/25 22:28 Hydromorphone Hcl Inj (*Crx) 2 Mg/Ml Vial IV PUSH 1 mg Q2H PRN Administration Breakthrough Pain Rated 7-10 or NPO Hydromorphone HCl 0.5 mg 04/15/25 15:40 Hydromorphone Hcl Inj (*Crx) 2 Mg/Ml Vial IV PUSH Q2H PRN Breakthrough Pain Rated 4-6 or NPO Hydroxyzine Pamoate 50 mg 04/15/25 10:39 Hydroxyzine Pamoate 25 Mg Capsule PO Q4H PRN Itching Dextrose 1,000 mls @ 100 mls/hr 04/13/25 19:34 Dextrose 5% 1,000 Ml IVPB PRN PRN Hypoglycemia Protocol Ibuprofen 800 mg in 200 mls @ 400 mls/hr 04/15/25 10:39 Caldolor 800 Mg/200 Ml IVPB Q6H PRN Breakthrough Pain Rated 1-3 or NPO Insulin Aspart 2 - 5 units 04/14/25 08:00 04/17/25 09:06 Insulin Aspart (*Bkc) 100 Units/Ml SUB-Q Not Given TIDWM [facility] Protocol Insulin Glargine 18 units 04/13/25 21:00 04/16/25 20:27 Insulin Glargine (*Bkc) 100 Units/Ml 0.15 units/kg (18 units) 18 units SUB-Q Administration [facility] Naloxone HCl 0.1 mg 04/15/25 14:41 Naloxone Hcl 0.4 Mg/Ml Vial IV PUSH Q2M PRN Opiate Reversal Ondansetron HCl 4 mg 04/15/25 14:41 Ondansetron Inj 4 Mg/2 Ml Vial IV PUSH Q4H PRN Nausea And Vomiting Oxycodone/Acetaminophen 1 tablet 04/15/25 14:41 04/16/25 20:51 Oxycodone/Acetaminophen (*Crx) 5-325 Mg Tablet PO 1 tablet Q4H PRN Administration Pain Rated 4-6 Oxycodone/Acetaminophen 1 tab 04/15/25 14:41 04/17/25 09:19 Oxycodone/Acetaminophen (*Crx) 10-325 Mg Tablet PO 1 tab Q6H PRN Administration Pain Rated 7-10 Perflutren Lipid Microsphere 0 ml 04/15/25 09:55 Perflutren Lipid Microspheres 1.5 Ml Vial Diluted To 10 Ml Total Volume IV PUSH ONCE PRN adequate visualization Protocol Polyethylene Glycol 17 gm 04/16/25 09:00 04/17/25 09:11 Polyethylene Glycol 3350 17 Gm Powd.Pack PO 17 gm QAM [facility] Administration Senna/Docusate Sodium 2 tab 04/15/25 17:00 04/17/25 09:11 Senna/Docusate Sodium Tablet PO 2 tab BID YUNIOR Administration Radiology Results: ITS Impressions Hip/Pelvis X-Ray 04/13/25 14:06 IMPRESSION: Acute partially comminuted fracture of the right femoral neck with overlap of the fracture fragments are noted. Hip CT 04/13/25 14:44 IMPRESSION: Acute displaced fracture of the right femoral neck with anterior displacement of the distal fracture segment. Chest X-Ray 04/13/25 17:51 IMPRESSION: Cardiomegaly with congestive yaya. Prominent markings in the lower lobes. Head CT 04/14/25 11:31 Impression: No significant abnormality seen. Labs Labs: Laboratory Results - last 24 hr 04/16/25 04/16/25 04/16/25 11:52 16:27 20:22 WBC RBC Hgb Hct MCV MCH MCHC RDW Plt Count MPV Immature Gran % (Auto) Neut % (Auto) Lymph % (Auto) [place] % (Auto) Eos % (Auto) Baso % (Auto) Lymph # (Auto) [place] # (Auto) Eos # (Auto) Baso # (Auto) Abs Immat Gran (auto) Absolute Neuts (auto) Absolute Nucleated RBC Nucleated RBC % Sodium Potassium Chloride Carbon Dioxide Anion Gap BUN Creatinine Estim Creat Clear Calc Estimated GFR Glucose POC Capillary Glucose 180 H 198 H 197 H Calcium Magnesium Total Bilirubin AST ALT Alkaline Phosphatase Total Protein Albumin 04/17/25 04/17/25 04/17/25 05:39 07:39 11:37 WBC 9.1 RBC 2.79 L Hgb 9.3 L Hct 28.0 L MCV 100.4 H MCH 33.3 MCHC 33.2 RDW 13.6 Plt Count 125 L MPV 10.6 H Immature Gran % (Auto) 0.5 Neut % (Auto) 78.9 H Lymph % (Auto) 7.1 L [place] % (Auto) 12.2 H Eos % (Auto) 1.0 Baso % (Auto) 0.3 Lymph # (Auto) 0.65 L [place] # (Auto) 1.1 H Eos # (Auto) 0.1 Baso # (Auto) 0.0 Abs Immat Gran (auto) 0.05 H Absolute Neuts (auto) 7.2 H Absolute Nucleated RBC 0.000 Nucleated RBC % 0.0 Sodium 131 L Potassium 5.1 H Chloride 103 Carbon Dioxide 23 Anion Gap 5 BUN 49 H Creatinine 1.60 H Estim Creat Clear Calc 45 Estimated GFR 42 L Glucose 153 H POC Capillary Glucose 160 H 261 H Calcium 8.6 Magnesium 2.0 Total Bilirubin 1.5 H AST 34 ALT 15 Alkaline Phosphatase 157 H Total Protein 6.3 Albumin 2.8 L
[2025-04-17] MEDS: HYDROmorphone HCL INJ (*CRX) 2 MG/ML VIAL 0.5 MG IV PUSH (12:34)
[2025-04-17] MEDS: INSULIN ASPART (*BKC) 100 UNITS/ML SUB-Q ×2 (12:34→17:11)
[2025-04-17 14:00] VITALS: BP 100/58; PULSE 95; RESP 16; TEMP 36.7; O2SAT 99
[2025-04-17 19:50] VITALS: PULSE 90; RESP 20; O2SAT 95
[2025-04-17 20:55] VITALS: BP 113/54; PULSE 90; RESP 16; TEMP 36.2; O2SAT 99
[2025-04-17] MEDS: INSULIN GLARGINE (*BKC) 100 UNITS/ML 18 UNITS SUB-Q (22:22)
[2025-04-17] MEDS: oxyCODONE/ACETAMINOPHEN (*CRX) 5-325 MG TABLET 1 TABLET PO (23:24)
[2025-04-18 05:15] VITALS: BP 104/56; PULSE 93; RESP 17; TEMP 36.8; O2SAT 99
[2025-04-18 08:10] LABS: Hematocrit 27.5 % (42.0-52.0); Hemoglobin 9.2 g/dL (14.0-18.0); Immature Granulocyte Percent A 1.0 % (0-0.5); Lymphocytes Absolute Auto 0.56 K/mm3 (0.9-3.2); Mean Corpuscular HGB Conc 33.5 g/dl (32-36); Mean Corpuscular Hemoglobin 33.2 pg (26-34); Mean Corpuscular Volume 99.3 fl (80-100); Nucleated Red Blood Cells Absolute Auto 0.000 K/mm3 (0.0-0.012); Nucleated Red Blood Cells Perc 0.0 % (0.0-0.2); Platelet Count Result 139 k/mm3 (150-375); Red Blood Count 2.77 M/mm3 (4.6-6.20); White Blood Count 6.9 K/mm3 (4.5-10.0)
[2025-04-18 08:34] LABS: Alanine Aminotransferase 15 U/L (6-50); Albumin Level 2.9 g/dL (3.5-5.1); Alkaline Phosphatase 196 U/L (38-126); Anion Gap 6 mmol/L (4-12); Aspartate Amino Transferase 36 U/L (17-59); Bilirubin,Total 1.6 mg/dL (0.2-1.3); Blood Urea Nitrogen 58 mg/dL (9-20); Calcium 8.7 mg/dL (8.4-10.2); Carbon Dioxide 23 mmol/L (22-30); Chloride 99 mmol/L (98-107); Estimated CRCL calculation 44 ml/min; Estimated Glomerular Filt Rate 41; Glucose 174 mg/dL (65-110); Magnesium 2.2 mg/dL (1.6-2.3); Potassium 5.3 mmol/L (3.4-5.0); Sodium 128 mmol/L (137-145); Total Protein 6.4 g/dL (6.3-8.2)
[2025-04-18 09:15] VITALS: PULSE 96
[2025-04-18] MEDS: APIXABAN 5 MG TABLET PO ×2 (09:15→21:35)
[2025-04-18] MEDS: oxyCODONE/ACETAMINOPHEN (*CRX) 5-325 MG TABLET 1 TABLET PO (09:15)
[2025-04-18] MEDS: FAMOTIDINE 20 MG TABLET PO ×2 (09:15→21:35)
[2025-04-18] MEDS: SENNA/DOCUSATE SODIUM TABLET 2 TAB PO ×2 (09:16→17:06)
[2025-04-18] MEDS: HYDROmorphone HCL INJ (*CRX) 2 MG/ML VIAL 1 MG IV PUSH (12:49)
[2025-04-18] MEDS: diazePAM (*CRX) 5 MG TABLET PO (12:50)
--- NOTE | 2025-04-18 13:21 | PM.PNORT ---
Progress Note: A&P Assessment and Plan (1) History of right hip hemiarthroplasty: Code(s): Z96.641 - Presence of right artificial hip joint Status: Acute Assessment and Plan: POD #1 :RIGHT HIP HEMIARTHROPLASTY WITH BIPOLAR PROSTHESIS Hyponatremia/elevated Creatinine today. Hospitalist following. Continue PT/OT. WBAT. Walker. HIGH FALL RISK. Continue pain control. Ice Hip. Protect skin. DVT prophylaxis with resumed Eliquis. SCDs. Incentive Spirometry Use reviewed. Monitor Dressing. Change prior to discharge. Bowel Regimen. Dispo: [facility] pending progress with PT/OT Plan Reviewed history, exam, radiographs and current labs with attending MD and covering surgeon, Dr. Gardner, who agrees with current plan as indicated above. No further recommendations from Dr. Gardner at this time. Subjective Subjective Date/Time Seen: 04/18/25 13:21 Post Op day: 3 Interval history: POD #3: RIGHT HIP HEMIARTHROPLASTY WITH BIPOLAR PROSTHESIS Patient sitting up in chair. Slow progress with PT/OT. Difficulty with transfers. Complaints of pain. Review of Systems Review of Systems: All systems reviewed & are unremarkable except as noted in HPI and below Constitutional: Constitutional: Denies chills, Denies fever(s), Denies headache(s), Denies lethargy and Reports weakness ENT: Denies headache(s) Cardiovascular: Cardiovascular: Denies chest pain, Denies diaphoresis, Denies lightheadedness, Denies palpitations, Denies dyspnea and Denies dyspnea on exertion Respiratory: Respiratory: Denies cough, Denies dyspnea and Denies dyspnea on exertion Gastrointestinal: Gastrointestinal: Denies constipation, Denies diarrhea, Denies nausea and Denies vomiting Genitourinary: Genitourinary: Denies dysuria, Reports urinary frequency and Denies urinary hesitancy Musculoskeletal: Musculoskeletal: Reports joint swelling (Right Hip ) and Reports limited range of motion (Right Hip due to recent surgery ) Neurologic: Denies headache(s) and Reports weakness Endocrine: Endocrine: Denies palpitations Exam Const: General: comfortable and no acute distress Resp: Effort & Inspection: normal respiratory effort Cardio: Rate: regular rate Rhythm: regular rhythm GI: Inspection: non-distended Skin: General skin exam: normal color Other: Incision right hip c/d/i. Surrounding tissue without redness/warmth. Mild swelling consistent with recent surgery. No drainage. Neuro: Cognition (Neuro): normal cognition Speech: normal speech Extrem: Right lower extremity: normal to inspection, normal capillary refill, hip/thigh Details: tenderness Location: of the hip (Thigh soft ) Location: laterally and anteriorly, swelling Location: at the hip, abnormal ROM (limited consistent with recent surgery ) Details: pain with active ROM during and pain with passive ROM during and other (Incision c/d/i. ); no deformity and no unusual warmth, knee Details: normal to inspection; no tenderness and no swelling, lower leg (Negative Dawson's Sign ) Details: normal to inspection and no edema; no tenderness, ankle (+ankle dorsiflexion/plantarflexion) Details: normal to inspection and no edema; no tenderness, no swelling and no ecchymosis and foot Details: normal capillary refill, toes with normal ROM, vascular exam Details: dorsalis pedis pulse present and motor-sensory exam Details: light-touch normal; no tenderness Objective Data Vital Signs Vital Signs: Vital Signs - 24 hr 04/17/25 14:00 04/17/25 19:50 04/17/25 20:00 Temperature 36.7 C Pulse Rate 95 90 Respiratory Rate 16 20 Blood Pressure 100/58 L Pulse Oximetry 99 95 Oxygen Delivery Room Air Room Air Fraction of Inspired Oxygen 21 04/17/25 20:55 04/18/25 05:15 04/18/25 08:00 Temperature 36.2 C L 36.8 C Pulse Rate 90 93 Respiratory Rate 16 17 Blood Pressure 113/54 L 104/56 L Pulse Oximetry 99 99 Oxygen Delivery Room Air Fraction of Inspired Oxygen 04/18/25 09:15 Temperature Pulse Rate 96 Respiratory Rate Blood Pressure Pulse Oximetry Oxygen Delivery Fraction of Inspired Oxygen Intake/Output Intake/Output: Intake & Output 04/15/25 04/16/25 04/17/25 04/18/25 23:59 23:59 23:59 23:59 Intake Total 1020.8 2955.4 2430 240 Output Total 1000 900 575 300 Balance 20.8 2055.4 1855 -60 Meds/Results Medications: Active Medications Generic Name Dose Route Start Last Admin Trade Name Freq PRN Reason Stop Dose Admin Acetaminophen 500 mg 04/15/25 14:41 Acetaminophen 500 Mg Tablet PO Q6H PRN Pain Rated 1-3 Apixaban 5 mg 04/13/25 21:00 04/18/25 09:15 Apixaban 5 Mg Tablet PO 5 mg Q12HR YUNIOR Administration Carvedilol 12.5 mg 04/14/25 09:00 04/18/25 09:15 Carvedilol 12.5 Mg Tablet PO 12.5 mg Q12HR YUNIOR Administration Dextrose 12.5 gm 04/13/25 19:34 Dextrose 50% 25 Gm/50 Ml Syringe IV PUSH PRN PRN Hypoglycemia Protocol Diazepam 5 mg 04/15/25 14:41 04/18/25 12:50 Diazepam (*Crx) 5 Mg Tablet PO 5 mg Q8H PRN Administration Muscle Spasm Famotidine 20 mg 04/15/25 21:00 04/18/25 09:15 Famotidine 20 Mg Tablet PO 20 mg Q12HR YUNIOR Administration Glucagon 1 mg 04/13/25 19:34 Glucagon For Inj 1 Mg Vial IM PRN PRN Hypoglycemia Protocol Glucose 15 gm 04/13/25 19:34 Glucose Oral Gel 15 Gm Of Glucse In 37.5 Gm Tube PO PRN PRN Hypoglycemia Protocol Hydromorphone HCl 1 mg 04/15/25 15:39 04/18/25 12:49 Hydromorphone Hcl Inj (*Crx) 2 Mg/Ml Vial IV PUSH 1 mg Q2H PRN Administration Breakthrough Pain Rated 7-10 or NPO Hydromorphone HCl 0.5 mg 04/15/25 15:40 04/17/25 12:34 Hydromorphone Hcl Inj (*Crx) 2 Mg/Ml Vial IV PUSH 0.5 mg Q2H PRN Administration Breakthrough Pain Rated 4-6 or NPO Hydroxyzine Pamoate 50 mg 04/15/25 10:39 Hydroxyzine Pamoate 25 Mg Capsule PO Q4H PRN Itching Dextrose 1,000 mls @ 100 mls/hr 04/13/25 19:34 Dextrose 5% 1,000 Ml IVPB PRN PRN Hypoglycemia Protocol Ibuprofen 800 mg in 200 mls @ 400 mls/hr 04/15/25 10:39 Caldolor 800 Mg/200 Ml IVPB Q6H PRN Breakthrough Pain Rated 1-3 or NPO Insulin Aspart 2 - 5 units 04/14/25 08:00 04/17/25 17:11 Insulin Aspart (*Bkc) 100 Units/Ml SUB-Q 2 units TIDWM [facility] Administration Protocol Insulin Glargine 18 units 04/13/25 21:00 04/17/25 22:22 Insulin Glargine (*Bkc) 100 Units/Ml 0.15 units/kg (18 units) 18 units SUB-Q Administration [facility] Naloxone HCl 0.1 mg 04/15/25 14:41 Naloxone Hcl 0.4 Mg/Ml Vial IV PUSH Q2M PRN Opiate Reversal Ondansetron HCl 4 mg 04/15/25 14:41 Ondansetron Inj 4 Mg/2 Ml Vial IV PUSH Q4H PRN Nausea And Vomiting Oxycodone/Acetaminophen 1 tablet 04/15/25 14:41 04/18/25 09:15 Oxycodone/Acetaminophen (*Crx) 5-325 Mg Tablet PO 1 tablet Q4H PRN Administration Pain Rated 4-6 Oxycodone/Acetaminophen 1 tab 04/15/25 14:41 04/17/25 09:19 Oxycodone/Acetaminophen (*Crx) 10-325 Mg Tablet PO 1 tab Q6H PRN Administration Pain Rated 7-10 Perflutren Lipid Microsphere 0 ml 04/15/25 09:55 Perflutren Lipid Microspheres 1.5 Ml Vial Diluted To 10 Ml Total Volume IV PUSH ONCE PRN adequate visualization Protocol Polyethylene Glycol 17 gm 04/16/25 09:00 04/18/25 09:15 Polyethylene Glycol 3350 17 Gm Powd.Pack PO 17 gm QAM [facility] Administration Senna/Docusate Sodium 2 tab 04/15/25 17:00 04/18/25 09:16 Senna/Docusate Sodium Tablet PO 2 tab BID YUNIOR Administration Radiology Results: ITS Impressions Hip/Pelvis X-Ray 04/13/25 14:06 IMPRESSION: Acute partially comminuted fracture of the right femoral neck with overlap of the fracture fragments are noted. Hip CT 04/13/25 14:44 IMPRESSION: Acute displaced fracture of the right femoral neck with anterior displacement of the distal fracture segment. Chest X-Ray 04/13/25 17:51 IMPRESSION: Cardiomegaly with congestive yaya. Prominent markings in the lower lobes. Head CT 04/14/25 11:31 Impression: No significant abnormality seen. Labs Labs: Laboratory Results - last 24 hr 04/17/25 04/17/25 04/18/25 16:36 22:22 07:12 WBC 6.9 RBC 2.77 L Hgb 9.2 L Hct 27.5 L MCV 99.3 MCH 33.2 MCHC 33.5 RDW 13.3 Plt Count 139 L MPV 10.5 H Immature Gran % (Auto) 1.0 H Neut % (Auto) 75.1 H Lymph % (Auto) 8.1 L [place] % (Auto) 13.1 H Eos % (Auto) 2.3 Baso % (Auto) 0.4 Lymph # (Auto) 0.56 L [place] # (Auto) 0.9 H Eos # (Auto) 0.2 Baso # (Auto) 0.0 Abs Immat Gran (auto) 0.07 H Absolute Neuts (auto) 5.2 Absolute Nucleated RBC 0.000 Nucleated RBC % 0.0 Sodium 128 L Potassium 5.3 H Chloride 99 Carbon Dioxide 23 Anion Gap 6 BUN 58 H Creatinine 1.63 H Estim Creat Clear Calc 44 Estimated GFR 41 L Glucose 174 H POC Capillary Glucose 211 H 194 H Calcium 8.7 Magnesium 2.2 Total Bilirubin 1.6 H AST 36 ALT 15 Alkaline Phosphatase 196 H Total Protein 6.4 Albumin 2.9 L 04/18/25 04/18/25 07:43 12:13 WBC RBC Hgb Hct MCV MCH MCHC RDW Plt Count MPV Immature Gran % (Auto) Neut % (Auto) Lymph % (Auto) [place] % (Auto) Eos % (Auto) Baso % (Auto) Lymph # (Auto) [place] # (Auto) Eos # (Auto) Baso # (Auto) Abs Immat Gran (auto) Absolute Neuts (auto) Absolute Nucleated RBC Nucleated RBC % Sodium Potassium Chloride Carbon Dioxide Anion Gap BUN Creatinine Estim Creat Clear Calc Estimated GFR Glucose POC Capillary Glucose 173 H 208 H Calcium Magnesium Total Bilirubin AST ALT Alkaline Phosphatase Total Protein Albumin Quality VTE Prophylaxis VTE prophylaxis: mechanical ordered
[2025-04-18 13:51] VITALS: BP 109/56; PULSE 89; RESP 18; TEMP 35.8; O2SAT 95
[2025-04-18] MEDS: INSULIN ASPART (*BKC) 100 UNITS/ML SUB-Q ×2 (14:01→17:06)
[2025-04-18] MEDS: SODIUM ZIRCONIUM CYCLOSILICATE 10 GM POWD.PACK PO (14:03)
--- NOTE | 2025-04-18 14:52 | P.PNIM_ITS ---
Progress Note: A&P Assessment and Plan (1) Closed displaced fracture of right femoral neck: Code(s): S72.001A - Fracture of unspecified part of neck of right femur, initial encounter for closed fracture Status: Acute Assessment and Plan: Orthopedics consulted s/p right ORIF 04/15/2025 EKG AFib rate controlled 64 Chest x-ray without acute abnormality. Pulmonary congestion noted received a dose of Lasix. Pain management and bowel protocol (2) Hypertension: Qualifiers: Hypertension type: essential hypertension Qualified Code(s): I10 - Essential (primary) hypertension Code(s): I10 - Essential (primary) hypertension Status: Chronic Assessment and Plan: Home medication (3) Chronic diastolic (congestive) heart failure: Code(s): I50.32 - Chronic diastolic (congestive) heart failure Status: Chronic Assessment and Plan: Pulmonary congestion seen on chest x-ray stop IV fluids IV Lasix x1 * Last ECHO 05/20/23 shows normal LVSF w/EF of 60-65%, and Grade III Diastolic dysfunction * Currently pt appears euvolemic. * Repeat ECHO with EF 55-60% grade 2 diastolic dysfunction severe pulmonary hypertension moderate to severe tricuspid regurgitation (4) CAD (coronary artery disease): Qualifiers: Coronary Disease-Associated Artery/Lesion type: [place] artery [place] vs. transplanted heart: [place] heart Associated angina: with stable angina Qualified Code(s): I25.118 - Atherosclerotic heart disease of [place] coronary artery with other forms of angina pectoris Code(s): I25.10 - Atherosclerotic heart disease of [place] coronary artery without angina pectoris Status: Acute Assessment and Plan: stable (5) Atrial fibrillation: Qualifiers: Atrial fibrillation type: persistent (not longstanding) Qualified Code(s): I48.19 - Other persistent atrial fibrillation Code(s): I48.91 - Unspecified atrial fibrillation Status: Chronic Assessment and Plan: Continue carvedilol * Holding Eliquis in the setting of upcoming surgery. * Carvedilol 12.5 mg Q12 hrs for rate control. Pulse ranging 50s-80s. 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 Slight uptick today. Will continue to monitor (8) Anemia associated with chemotherapy: Code(s): D64.81 - Anemia due to antineoplastic chemotherapy; T45.1X5A - Adverse effect of antineoplastic and immunosuppressive drugs, initial encounter Status: Acute Assessment and Plan: * Stable H&H at this time at 10.4/32.2. * No active bleeding or obvious hematoma development at the site of injury. Plan Hyponatremia mild likely pain related. Will add salt tablet. Recheck in evening Hyperkalemia give a dose of Lokelma recheck labs in Subjective Date/time seen: 04/18/25 14:52 Interval history: Complains of pain on his hip. Denies any chest pain or shortness of breath. Still constipated. Review of Systems Review of Systems: All systems reviewed & are unremarkable except as noted in HPI and below Exam Narrative: General: well appearing, appears stated age.not in acute distress HEENT: normocephalic, atraumatic. Mucous membranes moist. EOMI, PERRLA Respiratory: clear to ascultation bilaterally. No rales/rhonic/wheezes. Cardiovascular: Regular rate and rhythm, normal S1-S2 upon ascultation. No murmurs, rubs, or clicks. Abdomen: Soft, round, no pulsatile masses, nondistended and nontender. No rebound, no guarding. No CVA tenderness Extremities: No cyanosis, clubbing, or edema present. Pulses are palpable 2/2. Neuro: Alert and orientated x 4. PERRLA. Cranial nerves 2-12 intact without focal deficit. Skin: Warm, dry, and intact, without rash, erythema, or lesion. Psych: pleasant, cooperative, normal speech, normal affect, no hallucinations, no dysarthia Objective Data Vital Signs Vital Signs: Vital Signs - 24 hr 04/17/25 19:50 04/17/25 20:00 04/17/25 20:55 Temperature 97.2 F L Pulse Rate 90 90 Respiratory Rate 20 16 Blood Pressure 113/54 L Pulse Oximetry 95 99 Oxygen Delivery Room Air Room Air Fraction of Inspired Oxygen 21 04/18/25 05:15 04/18/25 08:00 04/18/25 09:15 Temperature 98.3 F Pulse Rate 93 96 Respiratory Rate 17 Blood Pressure 104/56 L Pulse Oximetry 99 Oxygen Delivery Room Air Fraction of Inspired Oxygen 04/18/25 13:51 Temperature 96.4 F L Pulse Rate 89 Respiratory Rate 18 Blood Pressure 109/56 L Pulse Oximetry 95 Oxygen Delivery Fraction of Inspired Oxygen Intake/Output Intake/Output: Intake & Output 04/15/25 04/16/25 04/17/25 04/18/25 23:59 23:59 23:59 23:59 Intake Total 1020.8 2955.4 2430 476 Output Total 1000 900 575 300 Balance 20.8 2055.4 1855 176 Meds/Results Medications: Active Medications Generic Name Dose Route Start Last Admin Trade Name Freq PRN Reason Stop Dose Admin Acetaminophen 500 mg 04/15/25 14:41 Acetaminophen 500 Mg Tablet PO Q6H PRN Pain Rated 1-3 Apixaban 5 mg 04/13/25 21:00 04/18/25 09:15 Apixaban 5 Mg Tablet PO 5 mg Q12HR YUNIOR Administration Carvedilol 12.5 mg 04/14/25 09:00 04/18/25 09:15 Carvedilol 12.5 Mg Tablet PO 12.5 mg Q12HR YUNIOR Administration Dextrose 12.5 gm 04/13/25 19:34 Dextrose 50% 25 Gm/50 Ml Syringe IV PUSH PRN PRN Hypoglycemia Protocol Diazepam 5 mg 04/15/25 14:41 04/18/25 12:50 Diazepam (*Crx) 5 Mg Tablet PO 5 mg Q8H PRN Administration Muscle Spasm Famotidine 20 mg 04/15/25 21:00 04/18/25 09:15 Famotidine 20 Mg Tablet PO 20 mg Q12HR YUNIOR Administration Glucagon 1 mg 04/13/25 19:34 Glucagon For Inj 1 Mg Vial IM PRN PRN Hypoglycemia Protocol Glucose 15 gm 04/13/25 19:34 Glucose Oral Gel 15 Gm Of Glucse In 37.5 Gm Tube PO PRN PRN Hypoglycemia Protocol Hydromorphone HCl 1 mg 04/15/25 15:39 04/18/25 12:49 Hydromorphone Hcl Inj (*Crx) 2 Mg/Ml Vial IV PUSH 1 mg Q2H PRN Administration Breakthrough Pain Rated 7-10 or NPO Hydromorphone HCl 0.5 mg 04/15/25 15:40 04/17/25 12:34 Hydromorphone Hcl Inj (*Crx) 2 Mg/Ml Vial IV PUSH 0.5 mg Q2H PRN Administration Breakthrough Pain Rated 4-6 or NPO Hydroxyzine Pamoate 50 mg 04/15/25 10:39 Hydroxyzine Pamoate 25 Mg Capsule PO Q4H PRN Itching Dextrose 1,000 mls @ 100 mls/hr 04/13/25 19:34 Dextrose 5% 1,000 Ml IVPB PRN PRN Hypoglycemia Protocol Ibuprofen 800 mg in 200 mls @ 400 mls/hr 04/15/25 10:39 Caldolor 800 Mg/200 Ml IVPB Q6H PRN Breakthrough Pain Rated 1-3 or NPO Insulin Aspart 2 - 5 units 04/14/25 08:00 04/18/25 14:01 Insulin Aspart (*Bkc) 100 Units/Ml SUB-Q 2 units TIDWM YUNIOR Administration Protocol Insulin Glargine 18 units 04/13/25 21:00 04/17/25 22:22 Insulin Glargine (*Bkc) 100 Units/Ml 0.15 units/kg (18 units) 18 units SUB-Q Administration [facility] Naloxone HCl 0.1 mg 04/15/25 14:41 Naloxone Hcl 0.4 Mg/Ml Vial IV PUSH Q2M PRN Opiate Reversal Ondansetron HCl 4 mg 04/15/25 14:41 Ondansetron Inj 4 Mg/2 Ml Vial IV PUSH Q4H PRN Nausea And Vomiting Oxycodone/Acetaminophen 1 tablet 04/15/25 14:41 04/18/25 09:15 Oxycodone/Acetaminophen (*Crx) 5-325 Mg Tablet PO 1 tablet Q4H PRN Administration Pain Rated 4-6 Oxycodone/Acetaminophen 1 tab 04/15/25 14:41 04/17/25 09:19 Oxycodone/Acetaminophen (*Crx) 10-325 Mg Tablet PO 1 tab Q6H PRN Administration Pain Rated 7-10 Perflutren Lipid Microsphere 0 ml 04/15/25 09:55 Perflutren Lipid Microspheres 1.5 Ml Vial Diluted To 10 Ml Total Volume IV PUSH ONCE PRN adequate visualization Protocol Polyethylene Glycol 17 gm 04/16/25 09:00 04/18/25 09:15 Polyethylene Glycol 3350 17 Gm Powd.Pack PO 17 gm QAM YUNIOR Administration Senna/Docusate Sodium 2 tab 04/15/25 17:00 04/18/25 09:16 Senna/Docusate Sodium Tablet PO 2 tab BID YUNIOR Administration Radiology Results: ITS Impressions Hip/Pelvis X-Ray 04/13/25 14:06 IMPRESSION: Acute partially comminuted fracture of the right femoral neck with overlap of the fracture fragments are noted. Hip CT 04/13/25 14:44 IMPRESSION: Acute displaced fracture of the right femoral neck with anterior displacement of the distal fracture segment. Chest X-Ray 04/13/25 17:51 IMPRESSION: Cardiomegaly with congestive yaya. Prominent markings in the lower lobes. Head CT 04/14/25 11:31 Impression: No significant abnormality seen. Labs Labs: Laboratory Results - last 24 hr 04/17/25 04/17/25 04/18/25 16:36 22:22 07:12 WBC 6.9 RBC 2.77 L Hgb 9.2 L Hct 27.5 L MCV 99.3 MCH 33.2 MCHC 33.5 RDW 13.3 Plt Count 139 L MPV 10.5 H Immature Gran % (Auto) 1.0 H Neut % (Auto) 75.1 H Lymph % (Auto) 8.1 L [place] % (Auto) 13.1 H Eos % (Auto) 2.3 Baso % (Auto) 0.4 Lymph # (Auto) 0.56 L [place] # (Auto) 0.9 H Eos # (Auto) 0.2 Baso # (Auto) 0.0 Abs Immat Gran (auto) 0.07 H Absolute Neuts (auto) 5.2 Absolute Nucleated RBC 0.000 Nucleated RBC % 0.0 Sodium 128 L Potassium 5.3 H Chloride 99 Carbon Dioxide 23 Anion Gap 6 BUN 58 H Creatinine 1.63 H Estim Creat Clear Calc 44 Estimated GFR 41 L Glucose 174 H POC Capillary Glucose 211 H 194 H Calcium 8.7 Magnesium 2.2 Total Bilirubin 1.6 H AST 36 ALT 15 Alkaline Phosphatase 196 H Total Protein 6.4 Albumin 2.9 L 04/18/25 04/18/25 07:43 12:13 WBC RBC Hgb Hct MCV MCH MCHC RDW Plt Count MPV Immature Gran % (Auto) Neut % (Auto) Lymph % (Auto) [place] % (Auto) Eos % (Auto) Baso % (Auto) Lymph # (Auto) [place] # (Auto) Eos # (Auto) Baso # (Auto) Abs Immat Gran (auto) Absolute Neuts (auto) Absolute Nucleated RBC Nucleated RBC % Sodium Potassium Chloride Carbon Dioxide Anion Gap BUN Creatinine Estim Creat Clear Calc Estimated GFR Glucose POC Capillary Glucose 173 H 208 H Calcium Magnesium Total Bilirubin AST ALT Alkaline Phosphatase Total Protein Albumin
[2025-04-18] MEDS: SODIUM CHLORIDE 500 MG TABLET PO (17:06)
[2025-04-18 19:44] LABS: Anion Gap 7 mmol/L (4-12); Blood Urea Nitrogen 61 mg/dL (9-20); Calcium 9.0 mg/dL (8.4-10.2); Carbon Dioxide 23 mmol/L (22-30); Chloride 98 mmol/L (98-107); Estimated CRCL calculation 48 ml/min; Estimated Glomerular Filt Rate 45; Glucose 225 mg/dL (65-110); Potassium 5.3 mmol/L (3.4-5.0); Sodium 128 mmol/L (137-145)
[2025-04-18 20:05] VITALS: BP 108/51; PULSE 93; RESP 17; TEMP 36.8; O2SAT 100
[2025-04-18] MEDS: INSULIN GLARGINE (*BKC) 100 UNITS/ML 18 UNITS SUB-Q (21:35)
[2025-04-18] MEDS: oxyCODONE/ACETAMINOPHEN (*CRX) 10-325 MG TABLET 1 TAB PO (21:45)
[2025-04-19 06:04] VITALS: BP 101/47; PULSE 70; RESP 16; TEMP 36; O2SAT 100
[2025-04-19 06:06] LABS: Hematocrit 25.1 % (42.0-52.0); Hemoglobin 8.5 g/dL (14.0-18.0); Immature Granulocyte Percent A 1.4 % (0-0.5); Lymphocytes Absolute Auto 0.52 K/mm3 (0.9-3.2); Mean Corpuscular HGB Conc 33.9 g/dl (32-36); Mean Corpuscular Hemoglobin 32.9 pg (26-34); Mean Corpuscular Volume 97.3 fl (80-100); Nucleated Red Blood Cells Absolute Auto 0.000 K/mm3 (0.0-0.012); Nucleated Red Blood Cells Perc 0.0 % (0.0-0.2); Platelet Count Result 126 k/mm3 (150-375); Red Blood Count 2.58 M/mm3 (4.6-6.20); White Blood Count 4.9 K/mm3 (4.5-10.0)
[2025-04-19 06:21] LABS: Alanine Aminotransferase 20 U/L (6-50); Albumin Level 2.7 g/dL (3.5-5.1); Alkaline Phosphatase 259 U/L (38-126); Anion Gap 5 mmol/L (4-12); Aspartate Amino Transferase 46 U/L (17-59); Bilirubin,Total 1.4 mg/dL (0.2-1.3); Blood Urea Nitrogen 60 mg/dL (9-20); Calcium 8.6 mg/dL (8.4-10.2); Carbon Dioxide 24 mmol/L (22-30); Chloride 99 mmol/L (98-107); Estimated CRCL calculation 51 ml/min; Estimated Glomerular Filt Rate 49; Glucose 193 mg/dL (65-110); Magnesium 2.4 mg/dL (1.6-2.3); Potassium 4.9 mmol/L (3.4-5.0); Sodium 128 mmol/L (137-145); Total Protein 6.1 g/dL (6.3-8.2)
[2025-04-19 08:20] VITALS: O2SAT 100
[2025-04-19 09:01] VITALS: PULSE 80
[2025-04-19] MEDS: SODIUM CHLORIDE 500 MG TABLET PO ×2 (09:01→16:28)
[2025-04-19] MEDS: SENNA/DOCUSATE SODIUM TABLET 2 TAB PO ×2 (09:01→16:28)
[2025-04-19] MEDS: APIXABAN 5 MG TABLET PO ×2 (09:02→20:49)
[2025-04-19] MEDS: oxyCODONE/ACETAMINOPHEN (*CRX) 5-325 MG TABLET 1 TABLET PO ×2 (09:02→16:28)
[2025-04-19] MEDS: FAMOTIDINE 20 MG TABLET PO ×2 (09:02→20:50)
--- NOTE | 2025-04-19 12:06 | P.CDI_ITS ---
CDI Query Clarification Request Patient has a history of chronic diastolic heart failure and was treated with IV Lasix x1 for pulmonary congestion seen on CXR. Could you please clarify if the patient is experiencing : * acute on chronic diastolic HF * chronic diastolic HF * Another condition, please specify The medical chart reflects the following: (3) Chronic diastolic (congestive) heart failure: Code(s): I50.32 - Chronic diastolic (congestive) heart failure Status: Chronic Assessment and Plan: Pulmonary congestion seen on chest x-ray stop IV fluids IV Lasix x1 * Last ECHO 05/20/23 shows normal LVSF w/EF of 60-65%, and Grade III Diastolic dysfunction * Currently pt appears euvolemic. * Repeat ECHO with EF 55-60% grade 2 diastolic dysfunction severe pulmonary hypertension moderate to severe tricuspid regurgitation x1 dose IV lasix CXR 04/13: IMPRESSION: Cardiomegaly with congestive yaya. Prominent markings in the lower lobes. Echo 04/15: Summary 1. Left ventricular chamber dimension is mildly enlarged. 2. Left ventricular systolic function is normal, estimated at 55-60. 3. There is severely increased left ventricular wall thickness. 4. The left ventricular diastolic function is grade II diastolic dysfunction. 5. The apical septum, basal anteroseptal, and mid anteroseptal are hypokinetic. 6. Left atrial chamber dimension is severely enlarged. 7. Right atrial chamber dimension is severely enlarged. 8. There is moderate aortic valve calcification. 9. There is mild aortic valve stenosis. 10. There is mild mitral valve regurgitation. 11. The mitral valve has a calcified annulus. 12. There is moderate to severe tricuspid valve regurgitation. 13. Severe pulmonary hypertension, estimated pulmonary arterial systolic pressure is 72 mmHg. 14. There is mild pulmonic regurgitation. <Rody Queen RN - Last Filed: 04/19/25 12:14> Provider Comments Chronic diastolic heart failure <Galdino Maravilla MD - Last Filed: 04/29/25 07:17>
[2025-04-19] MEDS: INSULIN ASPART (*BKC) 100 UNITS/ML SUB-Q ×2 (12:12→17:56)
--- NOTE | 2025-04-19 12:14 | P.PNIM_ITS ---
Progress Note: A&P Assessment and Plan (1) Closed displaced fracture of right femoral neck: Code(s): S72.001A - Fracture of unspecified part of neck of right femur, initial encounter for closed fracture Status: Acute Assessment and Plan: Orthopedics consulted s/p right ORIF 04/15/2025 EKG AFib rate controlled 64 Chest x-ray without acute abnormality. Pulmonary congestion noted received a dose of Lasix. Pain management and bowel protocol (2) Hypertension: Qualifiers: Hypertension type: essential hypertension Qualified Code(s): I10 - Essential (primary) hypertension Code(s): I10 - Essential (primary) hypertension Status: Chronic Assessment and Plan: Home medication (3) Chronic diastolic (congestive) heart failure: Code(s): I50.32 - Chronic diastolic (congestive) heart failure Status: Chronic Assessment and Plan: Pulmonary congestion seen on chest x-ray stop IV fluids IV Lasix x1 * Last ECHO 05/20/23 shows normal LVSF w/EF of 60-65%, and Grade III Diastolic dysfunction * Currently pt appears euvolemic. * Repeat ECHO with EF 55-60% grade 2 diastolic dysfunction severe pulmonary hypertension moderate to severe tricuspid regurgitation Restart Lasix oral. Due to hyperkalemia will hold spironolactone (4) CAD (coronary artery disease): Qualifiers: Coronary Disease-Associated Artery/Lesion type: [place] artery [place] vs. transplanted heart: [place] heart Associated angina: with stable angina Qualified Code(s): I25.118 - Atherosclerotic heart disease of [place] coronary artery with other forms of angina pectoris Code(s): I25.10 - Atherosclerotic heart disease of [place] coronary artery without angina pectoris Status: Acute Assessment and Plan: stable (5) Atrial fibrillation: Qualifiers: Atrial fibrillation type: persistent (not longstanding) Qualified Code(s): I48.19 - Other persistent atrial fibrillation Code(s): I48.91 - Unspecified atrial fibrillation Status: Chronic Assessment and Plan: Continue carvedilol * Holding Eliquis in the setting of upcoming surgery. * Carvedilol 12.5 mg Q12 hrs for rate control. Pulse ranging 50s-80s. 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 Fluctuating but it is fairly stable (8) Anemia associated with chemotherapy: Code(s): D64.81 - Anemia due to antineoplastic chemotherapy; T45.1X5A - Adverse effect of antineoplastic and immunosuppressive drugs, initial encounter Status: Acute Assessment and Plan: * Stable H&H at this time at 10.4/32.2. * No active bleeding or obvious hematoma development at the site of injury. Plan Hyponatremia mild likely pain related. Will add salt tablet. Recheck and monitor and remained stable Hyperkalemia give a dose of Lokelma resolved. Continue to hold spironolactone Subjective Date/time seen: 04/19/25 12:14 Interval history: No overnight events. Complains of pain in hip. Has not had any bowel movement yet. Denies any chest pain or shortness of breath. Labs reviewed. Review of Systems Review of Systems: All systems reviewed & are unremarkable except as noted in HPI and below Exam Narrative: General: well appearing, appears stated age.not in acute distress HEENT: normocephalic, atraumatic. Mucous membranes moist. EOMI, PERRLA Respiratory: clear to ascultation bilaterally. No rales/rhonic/wheezes. Cardiovascular: Regular rate and rhythm, normal S1-S2 upon ascultation. No murmurs, rubs, or clicks. Abdomen: Soft, round, no pulsatile masses, nondistended and nontender. No rebound, no guarding. No CVA tenderness Extremities: No cyanosis, clubbing, or edema present. Pulses are palpable 2/2. Neuro: Alert and orientated x 4. PERRLA. Cranial nerves 2-12 intact without focal deficit. Skin: Warm, dry, and intact, without rash, erythema, or lesion. Psych: pleasant, cooperative, normal speech, normal affect, no hallucinations, no dysarthia Objective Data Vital Signs Vital Signs: Vital Signs - 24 hr 04/18/25 13:51 04/18/25 20:00 04/18/25 20:05 Temperature 96.4 F L 98.2 F Pulse Rate 89 93 Respiratory Rate 18 17 Blood Pressure 109/56 L 108/51 L Pulse Oximetry 95 100 Oxygen Delivery Room Air Fraction of Inspired Oxygen 04/19/25 06:04 04/19/25 08:20 04/19/25 09:01 Temperature 96.8 F L Pulse Rate 70 80 Respiratory Rate 16 Blood Pressure 101/47 L Pulse Oximetry 100 100 Oxygen Delivery Room Air Fraction of Inspired Oxygen 21 Intake/Output Intake/Output: Intake & Output 04/16/25 04/17/25 04/18/25 04/19/25 23:59 23:59 23:59 23:59 Intake Total 2955.4 2430 716 240 Output Total 900 270 382 0019 Balance 2055.4 1855 415 960 Meds/Results Medications: Active Medications Generic Name Dose Route Start Last Admin Trade Name Freq PRN Reason Stop Dose Admin Acetaminophen 500 mg 04/15/25 14:41 Acetaminophen 500 Mg Tablet PO Q6H PRN Pain Rated 1-3 Apixaban 5 mg 04/13/25 21:00 04/19/25 09:02 Apixaban 5 Mg Tablet PO 5 mg Q12HR YUNIOR Administration Carvedilol 12.5 mg 04/14/25 09:00 04/19/25 09:01 Carvedilol 12.5 Mg Tablet PO 12.5 mg Q12HR YUNIOR Administration Dextrose 12.5 gm 04/13/25 19:34 Dextrose 50% 25 Gm/50 Ml Syringe IV PUSH PRN PRN Hypoglycemia Protocol Diazepam 5 mg 04/15/25 14:41 04/18/25 12:50 Diazepam (*Crx) 5 Mg Tablet PO 5 mg Q8H PRN Administration Muscle Spasm Famotidine 20 mg 04/15/25 21:00 04/19/25 09:02 Famotidine 20 Mg Tablet PO 20 mg Q12HR YUNIOR Administration Glucagon 1 mg 04/13/25 19:34 Glucagon For Inj 1 Mg Vial IM PRN PRN Hypoglycemia Protocol Glucose 15 gm 04/13/25 19:34 Glucose Oral Gel 15 Gm Of Glucse In 37.5 Gm Tube PO PRN PRN Hypoglycemia Protocol Hydromorphone HCl 1 mg 04/15/25 15:39 04/18/25 12:49 Hydromorphone Hcl Inj (*Crx) 2 Mg/Ml Vial IV PUSH 1 mg Q2H PRN Administration Breakthrough Pain Rated 7-10 or NPO Hydromorphone HCl 0.5 mg 04/15/25 15:40 04/17/25 12:34 Hydromorphone Hcl Inj (*Crx) 2 Mg/Ml Vial IV PUSH 0.5 mg Q2H PRN Administration Breakthrough Pain Rated 4-6 or NPO Hydroxyzine Pamoate 50 mg 04/15/25 10:39 Hydroxyzine Pamoate 25 Mg Capsule PO Q4H PRN Itching Dextrose 1,000 mls @ 100 mls/hr 04/13/25 19:34 Dextrose 5% 1,000 Ml IVPB PRN PRN Hypoglycemia Protocol Ibuprofen 800 mg in 200 mls @ 400 mls/hr 04/15/25 10:39 Caldolor 800 Mg/200 Ml IVPB Q6H PRN Breakthrough Pain Rated 1-3 or NPO Insulin Aspart 2 - 5 units 04/14/25 08:00 04/19/25 12:12 Insulin Aspart (*Bkc) 100 Units/Ml SUB-Q 2 units TIDWM YUNIOR Administration Protocol Insulin Glargine 18 units 04/13/25 21:00 04/18/25 21:35 Insulin Glargine (*Bkc) 100 Units/Ml 0.15 units/kg (18 units) 18 units SUB-Q Administration [facility] Naloxone HCl 0.1 mg 04/15/25 14:41 Naloxone Hcl 0.4 Mg/Ml Vial IV PUSH Q2M PRN Opiate Reversal Ondansetron HCl 4 mg 04/15/25 14:41 Ondansetron Inj 4 Mg/2 Ml Vial IV PUSH Q4H PRN Nausea And Vomiting Oxycodone/Acetaminophen 1 tablet 04/15/25 14:41 04/19/25 09:02 Oxycodone/Acetaminophen (*Crx) 5-325 Mg Tablet PO 1 tablet Q4H PRN Administration Pain Rated 4-6 Oxycodone/Acetaminophen 1 tab 04/15/25 14:41 04/18/25 21:45 Oxycodone/Acetaminophen (*Crx) 10-325 Mg Tablet PO 1 tab Q6H PRN Administration Pain Rated 7-10 Perflutren Lipid Microsphere 0 ml 04/15/25 09:55 Perflutren Lipid Microspheres 1.5 Ml Vial Diluted To 10 Ml Total Volume IV PUSH ONCE PRN adequate visualization Protocol Polyethylene Glycol 17 gm 04/16/25 09:00 04/19/25 09:01 Polyethylene Glycol 3350 17 Gm Powd.Pack PO 17 gm QAM YUNIOR Administration Senna/Docusate Sodium 2 tab 04/15/25 17:00 04/19/25 09:01 Senna/Docusate Sodium Tablet PO 2 tab BID YUNIOR Administration Sodium Chloride 500 mg 04/18/25 17:00 04/19/25 09:01 Sodium Chloride 500 Mg Tablet PO 500 mg BID YUNIOR Administration Radiology Results: ITS Impressions Hip/Pelvis X-Ray 04/13/25 14:06 IMPRESSION: Acute partially comminuted fracture of the right femoral neck with overlap of the fracture fragments are noted. Hip CT 04/13/25 14:44 IMPRESSION: Acute displaced fracture of the right femoral neck with anterior displacement of the distal fracture segment. Chest X-Ray 04/13/25 17:51 IMPRESSION: Cardiomegaly with congestive yaya. Prominent markings in the lower lobes. Head CT 04/14/25 11:31 Impression: No significant abnormality seen. Labs Labs: Laboratory Results - last 24 hr 04/18/25 04/18/25 04/18/25 12:13 16:32 19:22 WBC RBC Hgb Hct MCV MCH MCHC RDW Plt Count MPV Immature Gran % (Auto) Neut % (Auto) Lymph % (Auto) [place] % (Auto) Eos % (Auto) Baso % (Auto) Lymph # (Auto) [place] # (Auto) Eos # (Auto) Baso # (Auto) Abs Immat Gran (auto) Absolute Neuts (auto) Absolute Nucleated RBC Nucleated RBC % Sodium 128 L Potassium 5.3 H Chloride 98 Carbon Dioxide 23 Anion Gap 7 BUN 61 H Creatinine 1.49 H Estim Creat Clear Calc 48 Estimated GFR 45 L Glucose 225 H POC Capillary Glucose 208 H 225 H Calcium 9.0 Magnesium Total Bilirubin AST ALT Alkaline Phosphatase Total Protein Albumin 04/18/25 04/19/25 04/19/25 20:06 05:23 08:21 WBC 4.9 RBC 2.58 L Hgb 8.5 L Hct 25.1 L MCV 97.3 MCH 32.9 MCHC 33.9 RDW 13.3 Plt Count 126 L MPV 9.9 Immature Gran % (Auto) 1.4 H Neut % (Auto) 68.8 Lymph % (Auto) 10.7 L [place] % (Auto) 15.8 H Eos % (Auto) 2.9 Baso % (Auto) 0.4 Lymph # (Auto) 0.52 L [place] # (Auto) 0.8 H Eos # (Auto) 0.1 Baso # (Auto) 0.0 Abs Immat Gran (auto) 0.07 H Absolute Neuts (auto) 3.3 Absolute Nucleated RBC 0.000 Nucleated RBC % 0.0 Sodium 128 L Potassium 4.9 Chloride 99 Carbon Dioxide 24 Anion Gap 5 BUN 60 H Creatinine 1.39 H Estim Creat Clear Calc 51 Estimated GFR 49 L Glucose 193 H POC Capillary Glucose 228 H 195 H Calcium 8.6 Magnesium 2.4 H Total Bilirubin 1.4 H AST 46 ALT 20 Alkaline Phosphatase 259 H Total Protein 6.1 L Albumin 2.7 L 04/19/25 12:03 WBC RBC Hgb Hct MCV MCH MCHC RDW Plt Count MPV Immature Gran % (Auto) Neut % (Auto) Lymph % (Auto) [place] % (Auto) Eos % (Auto) Baso % (Auto) Lymph # (Auto) [place] # (Auto) Eos # (Auto) Baso # (Auto) Abs Immat Gran (auto) Absolute Neuts (auto) Absolute Nucleated RBC Nucleated RBC % Sodium Potassium Chloride Carbon Dioxide Anion Gap BUN Creatinine Estim Creat Clear Calc Estimated GFR Glucose POC Capillary Glucose 238 H Calcium Magnesium Total Bilirubin AST ALT Alkaline Phosphatase Total Protein Albumin
[2025-04-19 14:00] VITALS: BP 106/55; PULSE 92; RESP 16; TEMP 37.2; O2SAT 100
[2025-04-19] MEDS: FUROSEMIDE 20 MG TABLET PO (16:29)
[2025-04-19] MEDS: BISACODYL 10 MG SUPPOSITORY RECTAL (17:00)
[2025-04-19 20:00] VITALS: PULSE 94; RESP 16; O2SAT 100
[2025-04-19] MEDS: INSULIN GLARGINE (*BKC) 100 UNITS/ML 18 UNITS SUB-Q (20:50)
[2025-04-19 21:31] VITALS: BP 110/61; PULSE 94; RESP 16; TEMP 36.8; O2SAT 100
[2025-04-20 05:33] VITALS: BP 108/50; PULSE 71; RESP 18; TEMP 36.5; O2SAT 100
[2025-04-20 06:01] LABS: Hematocrit 26.2 % (42.0-52.0); Hemoglobin 8.9 g/dL (14.0-18.0); Immature Granulocyte Percent A 2.5 % (0-0.5); Lymphocytes Absolute Auto 0.53 K/mm3 (0.9-3.2); Mean Corpuscular HGB Conc 34.0 g/dl (32-36); Mean Corpuscular Hemoglobin 33.5 pg (26-34); Mean Corpuscular Volume 98.5 fl (80-100); Nucleated Red Blood Cells Absolute Auto 0.000 K/mm3 (0.0-0.012); Nucleated Red Blood Cells Perc 0.0 % (0.0-0.2); Platelet Count Result 141 k/mm3 (150-375); Red Blood Count 2.66 M/mm3 (4.6-6.20); White Blood Count 5.2 K/mm3 (4.5-10.0)
[2025-04-20 06:17] LABS: Alanine Aminotransferase 19 U/L (6-50); Albumin Level 2.7 g/dL (3.5-5.1); Alkaline Phosphatase 275 U/L (38-126); Anion Gap 5 mmol/L (4-12); Aspartate Amino Transferase 48 U/L (17-59); Bilirubin,Total 1.2 mg/dL (0.2-1.3); Blood Urea Nitrogen 55 mg/dL (9-20); Calcium 8.9 mg/dL (8.4-10.2); Carbon Dioxide 25 mmol/L (22-30); Chloride 101 mmol/L (98-107); Estimated CRCL calculation 57 ml/min; Estimated Glomerular Filt Rate 56; Glucose 192 mg/dL (65-110); Magnesium 2.4 mg/dL (1.6-2.3); Potassium 5.1 mmol/L (3.4-5.0); Sodium 131 mmol/L (137-145); Total Protein 6.1 g/dL (6.3-8.2)
--- NOTE | 2025-04-20 08:02 | P.DS_ITS ---
DS: Admitting Diagnosis Discharge Date 04/20/2025 Admitting Diagnosis Fall and hip fracture DS: Discharge Diagnosis Discharge Diagnosis (1) Closed displaced fracture of right femoral neck: Code(s): S72.001A - Fracture of unspecified part of neck of right femur, initial encounter for closed fracture Status: Acute (2) Hypertension: Qualifiers: Hypertension type: essential hypertension Qualified Code(s): I10 - Essential (primary) hypertension Code(s): I10 - Essential (primary) hypertension Status: Chronic (3) Chronic diastolic (congestive) heart failure: Code(s): I50.32 - Chronic diastolic (congestive) heart failure Status: Chronic (4) CAD (coronary artery disease): Qualifiers: Coronary Disease-Associated Artery/Lesion type: [place] artery [place] vs. transplanted heart: [place] heart Associated angina: with stable angina Qualified Code(s): I25.118 - Atherosclerotic heart disease of [place] coronary artery with other forms of angina pectoris Code(s): I25.10 - Atherosclerotic heart disease of [place] coronary artery without angina pectoris Status: Acute (5) Atrial fibrillation: Qualifiers: Atrial fibrillation type: persistent (not longstanding) Qualified Code(s): I48.19 - Other persistent atrial fibrillation Code(s): I48.91 - Unspecified atrial fibrillation Status: Chronic (6) Insulin dependent type 2 diabetes mellitus: Code(s): E11.9 - Type 2 diabetes mellitus without complications; Z79.4 - residential (current) use of insulin Status: Chronic (7) CKD (chronic kidney disease): Qualifiers: Chronic kidney disease stage: stage 3 (moderate) Chronic kidney disease stage 3 subtype: unspecified whether 3a or 3b Qualified Code(s): N18.30 - Chronic kidney disease, stage 3 unspecified Code(s): N18.9 - Chronic kidney disease, unspecified Status: Chronic (8) Anemia associated with chemotherapy: Code(s): D64.81 - Anemia due to antineoplastic chemotherapy; T45.1X5A - Adverse effect of antineoplastic and immunosuppressive drugs, initial encounter Status: Acute DS: Summary Hospital Course Hospital Course: # Closed displaced fracture of right femoral neck: Orthopedics consulted s/p right ORIF 04/15/2025 EKG AFib rate controlled 64 Chest x-ray without acute abnormality. Pulmonary congestion noted received a dose of Lasix. Pain management and bowel protocol # Hypertension: Home medication # Chronic diastolic (congestive) heart failure: Pulmonary congestion seen on chest x-ray stop IV fluids IV Lasix x1 * Last ECHO 05/20/23 shows normal LVSF w/EF of 60-65%, and Grade III Diastolic dysfunction * Currently pt appears euvolemic. * Repeat ECHO with EF 55-60% grade 2 diastolic dysfunction severe pulmonary hyp ertension moderate to severe tricuspid regurgitationRestart Lasix oral. Due to hyperkalemia will hold spironolactone and losartan * continue on beta shanique # CAD (coronary artery disease): stable # Atrial fibrillation: Continue carvedilol * Holding Eliquis in the setting of upcoming surgery. * Carvedilol 12.5 mg Q12 hrs for rate control. Pulse ranging 50s-80s. * resumed post op # Insulin dependent type 2 diabetes mellitus: ssi a1c 6.6 # CKD (chronic kidney disease): * Appears to be at Baseline with Cr/BUN 1.44/35 respectively.Fluctuating but it is fairly stable # Anemia associated with chemotherapy: * Stable H&H at this time at 10.4/32.2. * No active bleeding or obvious hematoma development at the site of injury. # Hyponatremia mild likely pain related. Will add salt tablet. Recheck and monitor and remained stable. slow taper. 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 Continue to hold spironolactone and losartan. need restart in future if hyperkalemia remains stable. Time Spent with Patient Time attestation: Total time spent providing and/or coordinating discharge services: 45 minutes Exam Narrative: General: well appearing, appears stated age.not in acute distress HEENT: normocephalic, atraumatic. Mucous membranes moist. EOMI, PERRLA Respiratory: clear to ascultation bilaterally. No rales/rhonic/wheezes. Cardiovascular: Regular rate and rhythm, normal S1-S2 upon ascultation. No murmurs, rubs, or clicks. Abdomen: Soft, round, no pulsatile masses, nondistended and nontender. No rebound, no guarding. No CVA tenderness Extremities: No cyanosis, clubbing, or edema present. Pulses are palpable 2/2. Neuro: Alert and orientated x 4. PERRLA. Cranial nerves 2-12 intact without focal deficit. Skin: Warm, dry, and intact, without rash, erythema, or lesion. Right hip surgical dressing in place which is clean dry and intact Psych: pleasant, cooperative, normal speech, normal affect, no hallucinations, no dysarthia DS: Data Data Completed and Pending Completed studies during hospitalization: Exam Type: CA echo dop color flow w con Complete two-dimensional, color flow and Doppler transthoracic echocardiogram is performed with contrast to opacify the left ventricle and to improve the deliniation of the left ventricle endocardial borders. Staff Referring Physician: Ziggy Gardner MD Call Specialist: Gillian Aguilar Attending Provider: Patricia Cabral Contrast/Agitated Saline Contrast/Ag. Saline: Definity Amount: 2.00 ml Administered By: Gillian Aguilar Existing IV Access: Yes IV Access Condition: patent with no signs of infiltration Reason for Poor Study: poor echocardiographic windows Summary 1. Left ventricular chamber dimension is mildly enlarged. 2. Left ventricular systolic function is normal, estimated at 55-60. 3. There is severely increased left ventricular wall thickness. 4. The left ventricular diastolic function is grade II diastolic dysfunction. 5. The apical septum, basal anteroseptal, and mid anteroseptal are hypokinetic. 6. Left atrial chamber dimension is severely enlarged. 7. Right atrial chamber dimension is severely enlarged. 8. There is moderate aortic valve calcification. 9. There is mild aortic valve stenosis. 10. There is mild mitral valve regurgitation. 11. The mitral valve has a calcified annulus. 12. There is moderate to severe tricuspid valve regurgitation. 13. Severe pulmonary hypertension, estimated pulmonary arterial systolic pressure is 72 mmHg. 14. There is mild pulmonic regurgitation. Left Ventricle Left ventricular chamber dimension is mildly enlarged. Left ventricular systolic function is normal, estimated at 55-60. There is severely increased left ventricular wall thickness. The left ventricular diastolic function is grade II diastolic dysfunction. The apical septum, basal anteroseptal, and mid anteroseptal are hypokinetic. All other calderon appear normal. Right Ventricle Right ventricular chamber dimension is normal. Right ventricular systolic function is normal. Left Atria Left atrial chamber dimension is severely enlarged. Right Atria Right atrial chamber dimension is severely enlarged. Atrial Septum Intact interatrial septum visualized by color flow imaging. Aortic Valve The aortic valve is trileaflet. There is mild aortic valve stenosis. There is trace aortic valve regurgitation. There is moderate aortic valve calcification. Pulmonic Valve The pulmonic valve is normal. There is no pulmonic valve stenosis. There is mild pulmonic regurgitation. Mitral Valve The mitral valve has a calcified annulus. There is no mitral valve stenosis. There is mild mitral valve regurgitation. Tricuspid Valve The tricuspid valve leaflets are normal. There is no significant tricuspid valve stenosis. There is moderate to severe tricuspid valve regurgitation. Severe pulmonary hypertension, estimated pulmonary arterial systolic pressure is 72 mmHg. Pericardium/Pleural The pericardium appears normal. Inferior Vena Cava Dilated inferior vena cava with <50% collapse upon inspiration consistent with elevated right atrial pressure, 15 mmHg. Aorta The aortic root size at the sinus of Valsalva is normal. Labs on day of discharge: Labs from last 24 hours 04/20/25 04/19/25 04/19/25 04:59 20:35 17:47 WBC 5.2 RBC 2.66 L Hgb 8.9 L Hct 26.2 L MCV 98.5 MCH 33.5 MCHC 34.0 RDW 13.2 Plt Count 141 L MPV 10.2 Immature Gran % (Auto) 2.5 H Neut % (Auto) 68.8 Lymph % (Auto) 10.2 L [place] % (Auto) 15.0 H Eos % (Auto) 2.9 Baso % (Auto) 0.6 Lymph # (Auto) 0.53 L [place] # (Auto) 0.8 H Eos # (Auto) 0.2 Baso # (Auto) 0.0 Abs Immat Gran (auto) 0.13 H Absolute Neuts (auto) 3.6 Absolute Nucleated RBC 0.000 Nucleated RBC % 0.0 Sodium 131 L Potassium 5.1 H Chloride 101 Carbon Dioxide 25 Anion Gap 5 BUN 55 H Creatinine 1.24 Estim Creat Clear Calc 57 Estimated GFR 56 L Glucose 192 H POC Capillary Glucose 271 H 249 H Calcium 8.9 Magnesium 2.4 H Total Bilirubin 1.2 AST 48 ALT 19 Alkaline Phosphatase 275 H Total Protein 6.1 L Albumin 2.7 L 04/19/25 04/19/25 12:03 08:21 WBC RBC Hgb Hct MCV MCH MCHC RDW Plt Count MPV Immature Gran % (Auto) Neut % (Auto) Lymph % (Auto) [place] % (Auto) Eos % (Auto) Baso % (Auto) Lymph # (Auto) [place] # (Auto) Eos # (Auto) Baso # (Auto) Abs Immat Gran (auto) Absolute Neuts (auto) Absolute Nucleated RBC Nucleated RBC % Sodium Potassium Chloride Carbon Dioxide Anion Gap BUN Creatinine Estim Creat Clear Calc Estimated GFR Glucose POC Capillary Glucose 238 H 195 H Calcium Magnesium Total Bilirubin AST ALT Alkaline Phosphatase Total Protein Albumin Procedures/Treatments: Procedure Note - Detailed Date of Procedure 04/15/25 Pre-op Diagnosis right femoral neck fracture Post-op Diagnosis Same Procedure Performed RIGHT HIP HEMIARTHROPLASTY WITH BIPOLAR PROSTHESIS Surgeon Ziggy Gardner MD Anesthesia General Description of Procedure THE PATIENT WAS TAKEN TO THE OPERATING ROOM IN STABLE CONDITION. HE WAS PLACED IN THE LATERAL DECUBITUS AND THE RIGHT LOWER EXTREMITY WAS PREPPED AND DRAPED IN THE STERILE FASHION. INCISION WAS MADE IN THE POSTERIOR LATERAL SIDE OF THE HIP, DOWN TO THE FASCIA LAYER. THE FASCIA WAS INCISED. THE HIP WAS EXPOSED. THE SHORT EXTERNAL ROTATORS WERE EXPOSED AND THERE WAS A LARGE HEMATOMA. THE CAPSULE WAS INCISED EXPOSING THE FRACTURE. THE FEMORAL HEAD WAS REMOVED. IT MEASURED 53 MM. AN OSTEOTOMY WAS MADE TO THE FEMORAL NECK ABOUT 1 CM PROXIMAL TO THE LESSER TROCHANTER. NEXT THE FEMUR WAS PREPARED WITH INITIAL CANAL FINDER THEN SEQUENTIAL BROACHING WAS PREFORMED TILL A #5 BROACH FIT WELL IN 15 OF ANTE VERSION. A 0 STANDARD OFFSET NECK BIPOLAR TRIAL IN A 53 MM SHELL WAS PLACED. THE SHUCK TEST WAS EXCELLENT AND THE STABILITY IN FLEXION AND ROTATION WAS EXCELLENT. LEG LENGTHS WERE GROSSLY EQUAL. TRIALS WERE REMOVED. A SHARIF ST EM #5 PRESS FIT STEM WAS PLACED WITH A STANDARD OFFSET IN 15 DEG OF ANTEVERSION. A 0 BIPOLAR HEAD NECK TRIAL WAS PLACED AGAIN. THE HIP WAS TRIALED AND THE STABILITY WAS EXCELLENT WERE THE LEG LENGTHS AND THE SHUCK TEST. NEXT A BIPOLAR HEAD NECK 0 IMPLANT WITH A 53 MM COBALT CHROME SHELL WAS PLACED AND TRIALED ONCE AGAIN SHOWING EXCELLENT STABILITY AND GROSSLY EQUAL LEG LENGTHS. THE WOUND WAS IRRIGATED WITH STERILE BETADINE AND WATER FOR 3 MIN. THEN WASHED AGAIN. THE CAPSULE AND THE EXTERNAL ROTATORS WERE APPROXIMATED WITH NUMBER 1 VICRYL. THE FASCIA WITH No 2 QUIL AND THE SUB CUTANEOUS LAYER WITH 2-0 ABSORBABLE SUTURE WITH LUDIN TO THE SKIN. PATIENT WAS PLACED BACK ON TO THE SUPINE POSITION AND WAS EXTUBATED. Estimated Blood Loss 400 Drains No Pathology None sent Complications No immediate complications Condition Stable Disposition PACU Imaging Radiologist's impression: ITS Impressions Hip/Pelvis X-Ray 04/13/25 14:06 IMPRESSION: Acute partially comminuted fracture of the right femoral neck with overlap of the fracture fragments are noted. Hip CT 04/13/25 14:44 IMPRESSION: Acute displaced fracture of the right femoral neck with anterior displacement of the distal fracture segment. Chest X-Ray 04/13/25 17:51 IMPRESSION: Cardiomegaly with congestive yaya. Prominent markings in the lower lobes. Head CT 04/14/25 11:31 Impression: No significant abnormality seen. Discharge Plan Discharge Attending physician on discharge: Galdino Maravilla Consulting providers: Ziggy Gardner Discharging Clinician: Galdino Maravilla Anticipated Discharge Date/Time: 04/20/25 08:04 Patient Disposition: [facility] Activity: may shower, no driving and follow weight bearing status Diet: diabetic Wound Care Instructions: follow printed instructions Discharge Instructions: Postoperative Hip Fracture Instructions Dr. Ziggy Gardner [phone] * Dressing to be changed daily with an island dressing beginning on post op day #2. May stop dressing changes at post op day #14. Ludin to be removed on post op day #14 * Weight bearing: Weight bearing as tolerated. * You may shower with your dressing but do not submerge in a bath tub. * Do not drive or operate machinery until you are released by your surgeon. * Do not walk without a walker for any reason until you are released by your surgeon. * Continue home blood thinners, no additional medications indicated. * Continue to apply ice to the hip intermittently for additional pain relief. Protect your skin with a towel or pillow case. * Continue to follow strict hip fracture precautions. * Please contact our office with any questions/concerns regarding your hip at [phone]. * Follow up appointment instructions indicated below. Patient Language: Singaporean Follow-up/Referrals: Randy Borrero MD [Primary Care Provider] - 1 Week Ziggy Gardner MD [Physician] - 05/26/25 2:30 pm (Our office will contact you with an appt. ) Discharge Medications: New oxycodone-acetaminophen 5-325 mg Tablet 1 - 2 tablet PO Q4H PRN (Reason: pain) Qty: 40 0RF diazepam 5 mg Tablet 5 mg PO Q8H PRN (Reason: Muscle Spasm) Qty: 30 0RF sennosides-docusate sodium [Senokot-S] 8.6-50 mg Tablet 1 tab-cap PO BID Qty: 30 0RF polyethylene glycol 3350 [Miralax] 17 gram Powder In Packet 17 g PO QAM Qty: 30 0RF sodium chloride 1,000 mg tablet,soluble 500 mg PO BID Qty: 30 0RF sodium chloride 1,000 mg tablet,soluble 500 mg PO BID Qty: 30 0RF furosemide 20 mg Tablet 20 mg PO DAILY Qty: 30 0RF Continued (DME) FreeStyle [place] 3 Sensor Device See Rx Instructions .Route Qty: 2 5RF Rx Instructions: use for monitoring blood sugar on insulin Repatha SureClick 140 mg/mL pen injector 140 mg subcut [id number] Rx Instructions: 1ST AND 15TH OF MONTH acetaminophen [Pain Reliever (acetaminophen)] 325 mg tablet 650 mg PO Q6H PRN (Reason: Pain (Scale Score 1-3)) Qty: 300 0RF Eliquis 5 mg Tablet 5 mg PO Q12HR Qty: 60 0RF (DME) pen needle, diabetic [BD Ultra-Fine Short Pen Needle] 31 gauge x 5/16 needle See Rx Instructions .Route Qty: 1200 1RF Rx Instructions: As directed to administer insulin ranolazine 500 mg tablet extended release 12 hr 500 mg PO Q12H Qty: 60 0RF polysaccharide iron complex [Poly-Iron] 150 mg iron capsule 150 mg PO DAILY Qty: 90 1RF pantoprazole 40 mg tablet,delayed release (DR/EC) 40 mg PO QAM Qty: 100 0RF carvedilol 12.5 mg tablet See Rx Instructions .ROUTE .COMPLEX Qty: 200 1RF Dose Instruction: TAKE 1 TABLET BY MOUTH EVERY 12 HOURS Rx Instructions: TAKE 1 TABLET BY MOUTH EVERY 12 HOURS nitroglycerin 0.4 mg tablet, sublingual See Rx Instructions .ROUTE .COMPLEX Qty: 100 0RF Dose Instruction: DISSOLVE 1 TABLET UNDER THE TONGUE EVERY 5 MINUTES NEEDED FOR CHEST PAIN. TO BE TAKEN NO MORE THAN THREE TIMES DAILY Rx Instructions: DISSOLVE 1 TABLET UNDER THE TONGUE EVERY 5 MINUTES NEEDED FOR CHEST PAIN. TO BE TAKEN NO MORE THAN THREE TIMES DAILY insulin aspart U-100 100 unit/mL (3 mL) insulin pen See Rx Instructions .ROUTE .COMPLEX Qty: 15 0RF Dose Instruction: INJECT UP TO 20 UNITS UNDER THE SKIN WITH EACH MEAL PER SLIDING SCALE, 60 UNITS DAILY Rx Instructions: INJECT UP TO 20 UNITS UNDER THE SKIN WITH EACH MEAL PER SLIDING SCALE, 60 UNITS DAILY Changed insulin glargine [Lantus Solostar U-100 Insulin] 100 unit/mL (3 mL) insulin pen 25 unit subcut QHS Qty: 57 2RF Dose Instruction: INJECT 25 UNITS SUBCUTANEOUS TWICE DAILY Rx Instructions: INJECT 25 UNITS SUBCUTANEOUS TWICE DAILY Discontinued spironolactone 25 mg tablet 25 mg PO DAILY Patient Comments: as per cardio isosorbide mononitrate 30 mg tablet extended release 24 hr 30 mg PO DAILY furosemide [Lasix] 40 mg tablet 40 mg PO Q12H losartan 25 mg tablet 12.5 mg PO BID isosorbide dinitrate 30 mg tablet See Rx Instructions .ROUTE .COMPLEX Qty: 270 0RF Dose Instruction: TAKE 1 TABLET BY MOUTH THREE TIMES DAILY. ALLOW NITRATE FREE INTERVAL OF 12 TO 14 HOURS PER A 24 HOUR PERIOD. Rx Instructions: TAKE 1 TABLET BY MOUTH THREE TIMES DAILY. ALLOW NITRATE FREE INTERVAL OF 12 TO 14 HOURS PER A 24 HOUR PERIOD. Date of admission: 04/13/25 17:26 Primary Care Provider: Randy Borrero Admitting Provider: Patricia Cabral Attending physician on admission: Patricia Cabral Condition: Stable
--- NOTE | 2025-04-20 08:23 | PCOTNOTE ---
Addendum entered by CHATO Suero 04/20/25 09:15: Patients pain improved and was agreeable to therapy this morning. Original Note: The patient treatment was not able to be completed patient reports being in to much pain. RN aware. Will plan to continue treatment per plan of care.
[2025-04-20] MEDS: SODIUM ZIRCONIUM CYCLOSILICATE 10 GM POWD.PACK PO (08:42)
[2025-04-20 08:43] VITALS: PULSE 76
[2025-04-20] MEDS: SENNA/DOCUSATE SODIUM TABLET 2 TAB PO (08:43)
[2025-04-20] MEDS: SODIUM CHLORIDE 500 MG TABLET PO (08:44)
[2025-04-20] MEDS: FUROSEMIDE 20 MG TABLET PO (08:44)
[2025-04-20] MEDS: FAMOTIDINE 20 MG TABLET PO (08:44)
[2025-04-20] MEDS: APIXABAN 5 MG TABLET PO (08:44)
[2025-04-20] MEDS: oxyCODONE/ACETAMINOPHEN (*CRX) 5-325 MG TABLET 1 TABLET PO (08:44)
[2025-04-20] MEDS: oxyCODONE/ACETAMINOPHEN (*CRX) 10-325 MG TABLET 1 TAB (12:01)
[2025-04-20] MEDS: INSULIN ASPART (*BKC) 100 UNITS/ML SUB-Q (12:02)
[2025-04-20 14:34] VITALS: BP 104/51; PULSE 78; RESP 16; TEMP 36.1; O2SAT 99
== END 2025-04-20 15:30 | DRG 522 ==
LOC: ANHED 13:52 → ANH3MEDSUR 17:00
PROVIDERS: Nurse Practitioner Adult Health; Nurse Practitioner Gerontology; Orthopaedic Surgery; Admitting Provider Internal Medicine; Emergency Provider Emergency Medicine; PCP Family Medicine; Visit Provider Internal Medicine
PROC: 0SRR019 Replacement of Right Hip Joint, Femoral Surface with Metal Synthetic Substitute, Cemented, Open Approach (ICD-10-PCS; CPT 27125; principal; 2025-04-15 10:30)
DX: S72.001A Fracture of unspecified part of neck of right femur, initial encounter for closed fracture (principal); C64.9 Malignant neoplasm of unspecified kidney, except renal pelvis; I50.32 Chronic diastolic (congestive) heart failure; I13.0 Hypertensive heart and chronic kidney disease with heart failure and stage 1 through stage 4 chronic kidney disease, or unspecified chronic kidney disease; E87.1 Hypo-osmolality and hyponatremia; E87.5 Hyperkalemia; W01.0XXA Fall on same level from slipping, tripping and stumbling without subsequent striking against object, initial encounter; E78.5 Hyperlipidemia, unspecified; I25.10 Atherosclerotic heart disease of native coronary artery without angina pectoris; C61 Malignant neoplasm of prostate; E11.40 Type 2 diabetes mellitus with diabetic neuropathy, unspecified; K21.9 Gastro-esophageal reflux disease without esophagitis; I48.91 Unspecified atrial fibrillation; E11.22 Type 2 diabetes mellitus with diabetic chronic kidney disease; N18.30 Chronic kidney disease, stage 3 unspecified; D64.81 Anemia due to antineoplastic chemotherapy; I44.7 Left bundle-branch block, unspecified; Z95.5 Presence of coronary angioplasty implant and graft; Z95.1 Presence of aortocoronary bypass graft; Z79.4 Long term (current) use of insulin
CPT/HCPCS: 36415; 70450; 71045; 73501; 73502; 73552; 73700; 80048; 80053; 82948; 83036; 83735; 85025; 85610; 85730; 86850; 86900; 86901; 93005; 96361; 96374; 96376; 97110; 97116; 97161; 97165; 97530; 97535; 99285; J0690; A9270; C1713; C1776; C8929; J0166; J1171; J1815; J1938; J2003; J2270; J2371; J2405; J2704; J2795; J3010; J7030; J7120; Q9957

== ENCOUNTER 2025-04-26 02:28 | Emergency (ER) | payer MEDICARE, SELFPAY ==
[2025-04-26] VITALS (17 sets, daily range): BP systolic 96–125; BP diastolic 53–62; PULSE 64–85; RESP 12–23; TEMP 36.6; O2SAT 97–100
--- OUTSIDE RECORDS SUMMARY | 2025-04-26 02:37 | XMS_ITS ---
Author Organization [facility] [address] Address [address] [place] [address] Care Team Providers Care Restaurant Hourly Team Member Name Role Phone Leonila Chapa MD Primary Care Provider Chinmay Shannon DPM Unavailable [phone] Zach Ojeda Unavailable Yahaira Westfall MD Unavailable [phone] Active Problems Problem Noted Date Diagnosed Date Pancytopenia 10/15/2023 Assessment & Plan (10/15/2023 4:30 PM REIMBURSEMENT AUDITOR): Newly noted, unclear etiology. Patient reports symptoms [...] 10/14/2023 Assessment & Plan (10/15/2023 4:23 PM REIMBURSEMENT AUDITOR): Mechanical as per history. Less likely orthostatic (though has history of 2-3 poor intake and AALIYAH), much less likely neurogenic or cardiogenic. HCT, c-spine CT, XR pelvis & L humerus without fracture and without intracranial bleed -Monitor L orbit hematoma, patient denies visual changes or headache. -PT/OT recommending home with HH AALIYAH (acute kidney injury) 10/14/2023 Assessment & Plan (10/15/2023 4:23 PM REIMBURSEMENT AUDITOR): Likely pre-renal in the setting of 2-3 days of N/V, and then poor intake after fall -Monitor off spironolactone and Lasix, instructed to resume 10/17 with slowly improving AALIYAH Nausea 10/14/2023 Assessment & Plan (10/15/2023 4:24 PM REIMBURSEMENT AUDITOR): Nausea/vomiting x2-3 days. Non bloody non bilious. Unclear etiology but more likely viral gastroenteritis. Resolved and patient tolerating diet. Leg swelling 10/14/2023 Assessment & Plan (10/15/2023 4:26 PM REIMBURSEMENT AUDITOR): Bilateral, L>R, chronic. Intermittent gets worse. He [...] 10/14/2023 Assessment & Plan (10/14/2023 11:06 AM REIMBURSEMENT AUDITOR): Outpatient f/u A-fib 10/14/2023 Assessment & Plan (10/14/2023 11:08 AM REIMBURSEMENT AUDITOR): Chronic, continuing the home Eliquis. Based on PT and risk of repeat falls, may need risks/benefits couselling Follow-up examination 10/14/2023 Assessment & Plan (10/15/2023 4:28 PM REIMBURSEMENT AUDITOR): CT 10/14/23 incidentally noted a Serpiginous tubular [...] 10/14/2023 Assessment & Plan (10/15/2023 4:28 PM REIMBURSEMENT AUDITOR): CABG in 2018. BNP around prior baseline, [...] (08/14/2022): Added automatically from request for surgery [id number] Pre-op evaluation 06/26/2022 Demand ischemia of myocardium [...] 12/29/2017 Assessment & Plan (10/15/2023 4:22 PM REIMBURSEMENT AUDITOR): Uses long acting 25u BID + SSI [...]
--- OUTSIDE RECORDS SUMMARY | 2025-04-26 02:37 | XMS_ITS | Encounter Summary ---
Author Organization [facility] Address [address] [place] [address] Care Team Providers Care Police Judge Name Role Phone Leonila Chapa MD Primary Care Provider Chinmay ShannonM Unavailable [phone] Zach Ojeda Unavailable [phone] Yahaira Westfall MD Unavailable [phone] Encounter Details Date Type Department Care Team (Late st Contact Info) Description 05/21/2021 Telephone [facility] - Interventional Radiology [address] [place] [address] Cristina Guzman RN Social History Tobacco Use Types Packs/Day Years Used Date Smoking Tobacco: Never Smokeless Tobacco: Never Alcohol Use Standard Drinks/Week Comments Yes 2 (1 standard drink = 0.6 oz pur e alcohol) seldom Sex and Gender Information Value Date Recorded Sex Assigned at Not on file 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 [address] [place] [address] PCP - General Family Medicine 12/29/17 Chinmay Shannon, SILVA [address] [place] [address] Referring Physician Foot and Ankle Surg 08/26/22 Zach Ojeda PA [address] [facility] [address] [place] [facility] [place] [address] Orthopedic Surgery 12/06/22 Yahaira Westfall MD [address] [facility] [place] [address] Consulting Physician Internal Medicine 05/20/23 documented as of this encounter
--- OUTSIDE RECORDS SUMMARY | 2025-04-26 02:37 | XMS_ITS | Encounter Summary ---
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 Gender Identity Not on file Sexual Orientation [...] COVID: Suspected 10/14/2023 10/14/2023 10/14/2023 3:53 AM SHOE CLEANER documented as of this encounter Care Teams Stitchdown Thread Laster Relationship Specialty Start Date End Date Leonila Chapa MD [address] [facility] [address] [place] [address] PCP - General Family Medicine 12/29/17 Chinmay Shannon DPM [address] [place] [address] Referring Physician Foot and Ankle Surg 08/26/22 Zach Ojeda PA [address] [facility] [place] [address] Orthopedic Surgery 12/06/22 Yahaira Westfall MD [address] [facility] [place] [address] Consulting Physician Internal Medicine 05/20/23 documented as of this encounter
--- OUTSIDE RECORDS SUMMARY | 2025-04-26 02:37 | XMS_ITS | Clinical Summary ---
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
--- OUTSIDE RECORDS SUMMARY | 2025-04-26 02:37 | XMS_ITS | Referral Summary ---
Author Organization [place] [address] Address [address] [place] [address] Care Team Providers Care Headlight Adjuster Name Role Phone Leonila Chapa MD Primary Care Provider Chinmay ShannonM Unavailable [phone] Zach Ojeda Unavailable Yahaira Westfall MD Unavailable [phone] Encounters Date Type Department Care Team Description 04/07/2025 Telephone [facility] Medical [facility] Cardiology [address] [facility] [address] [place] [address] Juwan Brown MD 03/22/2025 Telephone [facility] Medical [facility] Cardiology [address] [place] [address] [address] [place] [address] Juwan Brown MD 02/22/2025 Orders Only [facility] Medical [facility] Cardiology [address] [place] [address] [address] [place] [address] Dana Brunson MD 02/21/2025 Telephone [facility] Medical [facility] Cardiology [address] [place] [address] [address] [place] [address] Juwan Brown MD 01/28/2025 Telephone [facility] Medical [facility] Cardiology [address] [place] [address] [address] [place] [address] Juwan Brown MD from Last 3 Months Allergies Active Allergy Reactions Criticality Noted Date Comments Atorvastatin Other (See comments) Low Reaction: Penicillins Anaphylaxis High 03/19/2013 Wbvysyx-Wfs-Tjr Reductase Inhibitors Muscle pain Medium 01/20/2018 Atorvastatin [...] 12 hr tabletIndicatio ns:Coronary artery disease of [place] artery of [place] heart with stable angina pectoris TAKE 1 [...] 2 07/05/20 24 025 Discontin ued(Reord er) Active Problems Problem Noted Date Diagnosed Date Pancytopenia 10/15/2023 Assessment & Plan (10/15/2023 4:30 PM DIRECTOR OF INSTITUTIONAL RESEARCH): Newly noted, unclear etiology. Patient reports symptoms [...] Assessment & Plan (10/15/2023 4:23 PM DIRECTOR OF INSTITUTIONAL RESEARCH): Mechanical as per history. Less likely orthostatic (though has history of 2-3 poor intake and AALIYAH), much less likely neurogenic or cardiogenic. HCT, c-spine CT, XR pelvis & L humerus without fracture and without intracranial bleed -Monitor L orbit hematoma, patient denies visual changes or headache. -PT/OT recommending home with HH AALIYAH (acute kidney injury) 10/14/2023 Assessment & Plan (10/15/2023 4:23 PM DIRECTOR OF INSTITUTIONAL RESEARCH): Likely pre-renal in the setting of 2-3 days of N/V, and then poor intake after fall -Monitor off spironolactone and Lasix, instructed to resume 10/17 with slowly improving AALIYAH Nausea 10/14/2023 Assessment & Plan (10/15/2023 4:24 PM DIRECTOR OF INSTITUTIONAL RESEARCH): Nausea/vomiting x2-3 days. Non bloody non bilious. Unclear etiology but more likely viral gastroenteritis. Resolved and patient tolerating diet. Leg swelling 10/14/2023 Assessment & Plan (10/15/2023 4:26 PM DIRECTOR OF INSTITUTIONAL RESEARCH): Bilateral, L>R, chronic. Intermittent gets worse. He [...] Assessment & Plan (10/14/2023 11:06 AM DIRECTOR OF INSTITUTIONAL RESEARCH): Outpatient f/u A-fib 10/14/2023 Assessment & Plan (10/14/2023 11:08 AM DIRECTOR OF INSTITUTIONAL RESEARCH): Chronic, continuing the home Eliquis. Based on PT and risk of repeat falls, may need risks/benefits couselling Follow-up examination 10/14/2023 Assessment & Plan (10/15/2023 4:28 PM DIRECTOR OF INSTITUTIONAL RESEARCH): CT 10/14/23 incidentally noted a Serpiginous tubular [...] Assessment & Plan (10/15/2023 4:28 PM DIRECTOR OF INSTITUTIONAL RESEARCH): CABG in 2017. BNP around prior baseline, Troponin negative. TTE 2021 was ok -Continue outpatient f/u and GDMT. [...] (08/14/2022): Added automatically from request for surgery [id number] Pre-op evaluation 06/26/2022 Demand ischemia of myocardium [...] Assessment & Plan (10/15/2023 4:22 PM DIRECTOR OF INSTITUTIONAL RESEARCH): Uses long acting 25u BID + SSI [...] file Legal Sex Male 7:32 PM DIRECTOR OF INSTITUTIONAL RESEARCH Gender Identity Not on file Sexual Orientation Not on file Last Filed Vital Signs Vital Sign Reading Time Taken Comments Blood Pressure 90/60 09/21/2024 1:37 PM DIRECTOR OF INSTITUTIONAL RESEARCH Pulse 87 09/21/2024 1:37 PM DIRECTOR OF INSTITUTIONAL RESEARCH Temperature 36.2 C (97.2 F) 10/15/2023 3:35 PM DIRECTOR OF INSTITUTIONAL RESEARCH Respiratory Rate 18 10/15/2023 8:00 AM DIRECTOR OF INSTITUTIONAL RESEARCH Oxygen Saturation 96% 09/21/2024 1:37 PM DIRECTOR OF INSTITUTIONAL RESEARCH Inhaled Oxygen Concentration - - Weight 129.7 kg (286 lb) 09/21/2024 1:37 PM DIRECTOR OF INSTITUTIONAL RESEARCH Height 185.4 cm (6' 1) 09/21/2024 1:37 PM DIRECTOR OF INSTITUTIONAL RESEARCH Body Mass Index 37.73 09/21/2024 1:37 PM DIRECTOR OF INSTITUTIONAL RESEARCH Plan of Treatment Not on file Medical Devices Implanted Type Area Energy And Sustainability Manager Device Identifier Shelf Expiration Date Model / Serial / Lot Daig [employer] [id number] Angio-Seal Vip Bondek-Plus 6fr .035in 70cm Hemostatic Latex Free - [id number] Implanted:Qty: 1 on 01/06/2019 by Sanjiv Starkey MD at [facility] Right: Groin [employer] 08/05/2019 [id number] / / [id number] [facility] [employer] Angio-Seal Vip 6fr Closere Device [id number] - [id number] Implanted:Qty: 1 on 08/07/2022 by Sanjiv Starkey MD at [facility] [employer] Misael 03/05/2023 [id number] / / [id number] [employer] Cement Bone Simplex Gentamicin High Viscosity 40gm 6195-1-001 - [id number] Implanted:Qty: 1 on 12/03/2022 by Thuan Servin MD at [facility] Left: Knee [employer] 05/05/2024 6195-1-001 / / [id number] [employer] Attune Cruciate Retain Cementless Knee Left 9 Component Femoral [id number] - [id number] Implanted:Qty: 1 on 12/03/2022 by Thuan Servin MD at [facility] Left: Knee [employer] 06/05/2031 [id number] / / [id number] [employer] Attune 41mm Cemented Medialize Knee Dome Patellar Aox Sterile [id number] - [id number] Implanted:Qty: 1 on 12/03/2022 by Thuan Servin MD at [facility] Left: Knee [employer] 03/05/2027 [id number] / / [id number] [employer] Attune 10mm Cruciate Retaining Fix Bearing Knee 9 Insert Tibial [id number] - [id number] Implanted:Qty: 1 on 12/03/2022 by Thuan Servin MD at [facility] Left: Knee [employer] 08/05/2027 [id number] / / [id number] 1506-21-010 Attune Tibial Base Affixium Fixed Bearing Size 10 Implanted:Qty: 1 on 12/03/2022 by Thuan Servin MD at [facility] Left: Knee [employer] [id number] 09/04/2032 [id number] / [id number] / [id number] Procedures Procedure Name Priority Date/Time Associated Diagnosis Comments LIPID PANEL Routine 12/06/2024 1:28 PM DIRECTOR OF INSTITUTIONAL RESEARCH EGFR Routine 10/15/2023 5:48 AM DIRECTOR OF INSTITUTIONAL RESEARCH HEMOGLOBIN A1C STAT 10/14/2023 2:19 AM DIRECTOR OF INSTITUTIONAL RESEARCH COLONOSCOPY 09/24/2023 2:16 PM DIRECTOR OF INSTITUTIONAL RESEARCH from Last 3 Months or Most Recently Relevant to Health Maintenance Results * (ABNORMAL) Lipid panel (12/06/2024 1:28 PM DIRECTOR OF INSTITUTIONAL RESEARCH) SCRIBED Cholesterol, Total 107 30 - 199 mg/dL [facility] SCRIBED Triglycerides 75 <=149 mg/dL [facility] SCRIBED HDL 37(A) >=40 mg/dL [facility] SCRIBED LDL 54 <=129 mg/dL [facility] Scribed Non-HDL Cholesterol 70 NONE mg/dL [facility] SCRIBED Total Cholesterol/HDL Ratio 107 NONE [facility] Blood us Historical Provider LAB BLOOD ORDERABLES Edit ed Result - Final [facility] * (ABNORMAL) eGFR (10/15/2023 5:48 AM DIRECTOR OF INSTITUTIONAL RESEARCH) eGFR 48(L) >=60 mL/min/1. 73 m2 [facility] Comment: Interpretive Data Reference Interval [...] reviewed 2021. Blood 10/15/2023 5:48 AM DIRECTOR OF INSTITUTIONAL RESEARCH 10/15/2023 6:08 AM DIRECTOR OF INSTITUTIONAL RESEARCH Andrade Conti MD LAB BLOOD ORDERABLES Martha l Result Performing Organization Address City/[facility]/ZIP Co de Phone Number [facility] Department [place] [address] * (ABNORMAL) Hemoglobin A1c (10/14/2023 2:19 AM DIRECTOR OF INSTITUTIONAL RESEARCH) Hgb A1C 6.4(H) 4.0 - 5.6 % [facility] Estimated Average Glucose 137 mg/dL [facility] Comment: The ADA recommends reporting an estimated Average Glucose (eAG) with all Hemoglobin A1c results using the equation derived from a study of 507 normal and diabetic adults. Minority populations were underrepresented and children were not included. (Diabetes Care 2020; 43(S1): S66-S76). The eAG is not equivalent to a fasting glucose. Blood 10/14/2023 2:19 AM DIRECTOR OF INSTITUTIONAL RESEARCH 10/14/2023 2:28 AM DIRECTOR OF INSTITUTIONAL RESEARCH us Maribell Basilio MD LAB BLOOD ORDERABLES Final Result [facility] [place] [address] * COLONOSCOPY (09/24/2023 2:16 PM DIRECTOR OF INSTITUTIONAL RESEARCH) Anatomical Region Laterality Modality Other Narrative Procedure Note Alli Ervin MD - 09/24/2023 2:16 PM [facility] Patient Name: [place] Guzman Procedure Date: 09/24/2023 2:16 PM Date of : 1945 Admit Type: Outpatient Age: 77 Gender: Male Attending MD: Alli Ervin M.D. Room: [facility] ENDOSCOPY ROOM 9 Note Status: Finalized Procedure: Colonoscopy Indications: Iron deficiency anemia Referring MD: Orlando Barr, F.N.P. Providers: Alli Ervin M.D. Comorbidities See [...] scope was passed under direct vision.The CF [id number] endoscope was introduced through the anus and advanced to the cecum, identified by appendiceal orifice and ileocecal valve. The colonoscopy was performed without difficulty. The patient tolerated the procedure well. The qualityof the bowel preparation was evaluated using the BBPS ([place] Bowel Preparation Scale) with scores of:Right Colon [...] On: 09/24/2023 2:16 PM Recognized by the [employer] Gastrointestinal Endoscopy for promoting quality in endoscopy Alli Ervin MD ENDOSCOPY PROCEDURES Final Result from Last 3 Months or Most Recently Relevant to Health Maintenance Insurance [facility] MEDICARE [place]BS MEDICARE [place] [facility] MEDICARE MEDICARE MEDICARE Advance Directives For more information, please contact: [phone] Documents on File Type Date Recorded Patient Police Officer Crime Prevention Expl anation Power of Licensed And Certified Midwife 08/15/2021 7:19 AM * Full Code (Latest [...] Agents on File Name Relationship Healthcare Agent [facility] Communication [facility] Health Care Agent Care Teams Headlight Adjuster Relationship Specialty Start Date End Date Leonila Chapa MD [address] [address] PCP - General Family Medicine 12/29/17 Chinmay Shannon DPM [address] [place] [address] Referring Physician Foot and Ankle Surg 08/26/22 Zach Ojeda PA 4 [facility] [place] [address] Orthopedic Surgery 12/06/22 Yahaira Westfall MD 1 [facility] [place] [address] Consulting Physician Internal Medicine 05/20/23
--- OUTSIDE RECORDS SUMMARY | 2025-04-26 02:37 | XMS_ITS | Clinical Summary ---
Author Organization [facility] [address] Address [address] [place] [address] Care Team Providers Care Collar Cutter Name Role Phone Leonila Chapa MD Primary Care Provider Chinmay Shannon DPM Unavailable [phone] Zach Ojeda Unavailable Yahaira Westfall MD Unavailable [phone] Allergies Active Allergy Reactions Criticality Noted Date Comments Atorvastatin Other (See comments) Low Reaction: Penicillins Anaphylaxis High 03/19/2013 Lwcqvyd-Vlg-Yum Reductase Inhibitors Muscle pain Medium 01/20/2018 Atorvastatin [...] 12 hr tabletIndicatio ns:Coronary artery disease of [place]a'[place] artery of asa'[place] heart with stable angina pectoris TAKE 1 [...] 10/15/2023 Assessment & Plan (10/15/2023 4:30 PM SAFETY ADMINISTRATOR): Newly noted, unclear etiology. Patient reports symptoms [...] 10/14/2023 Assessment & Plan (10/15/2023 4:23 PM SAFETY ADMINISTRATOR): Mechanical as per history. Less likely orthostatic (though has history of 2-3 poor intake and AALIYAH), much less likely neurogenic or cardiogenic. HCT, c-spine CT, XR pelvis & L humerus without fracture and without intracranial bleed -Monitor L orbit hematoma, patient denies visual changes or headache. -PT/OT recommending home with HH AALIYAH (acute kidney injury) 10/14/2023 Assessment & Plan (10/15/2023 4:23 PM SAFETY ADMINISTRATOR): Likely pre-renal in the setting of 2-3 days of N/V, and then poor intake after fall -Monitor off spironolactone and Lasix, instructed to resume 10/17 with slowly improving AALIYAH Nausea 10/14/2023 Assessment & Plan (10/15/2023 4:24 PM SAFETY ADMINISTRATOR): Nausea/vomiting x2-3 days. Non bloody non bilious. Unclear etiology but more likely viral gastroenteritis. Resolved and patient tolerating diet. Leg swelling 10/14/2023 Assessment & Plan (10/15/2023 4:26 PM SAFETY ADMINISTRATOR): Bilateral, L>R, chronic. Intermittent gets worse. He [...] 10/14/2023 Assessment & Plan (10/14/2023 11:06 AM SAFETY ADMINISTRATOR): Outpatient f/u A-fib 10/14/2023 Assessment & Plan (10/14/2023 11:08 AM SAFETY ADMINISTRATOR): Chronic, continuing the home Eliquis. Based on PT and risk of repeat falls, may need risks/benefits couselling Follow-up examination 10/14/2023 Assessment & Plan (10/15/2023 4:28 PM SAFETY ADMINISTRATOR): CT 10/14/23 incidentally noted a Serpiginous tubular [...] 10/14/2023 Assessment & Plan (10/15/2023 4:28 PM SAFETY ADMINISTRATOR): CABG in 2018. BNP around prior baseline, [...] (08/14/2022): Added automatically from request for surgery [id number] Pre-op evaluation 06/26/2022 Demand ischemia of myocardium [...] 12/29/2017 Assessment & Plan (10/15/2023 4:22 PM SAFETY ADMINISTRATOR): Uses long acting 25u BID + SSI [...] Type Department Care Team Description 04/07/2025 Telephone [facility] Cardiology [address] [place] [phone] Juwan Brown MD 03/22/2025 Telephone [facility] Cardiology [address] [place] [phone] Juwan Brown MD 02/22/2025 Orders Only [facility] Cardiology [address] [place] [phone] ProviderDana MD 02/21/2025 Telephone [facility] Cardiology [address] [facility] [address] [place] [address] Juwan Brown MD 01/28/2025 Telephone [facility] Cardiology [address] [place] [address] [address] [place] [address] Juwan Brown MD from Last [...] Brother 2 Irving Alcohol abuse Brother 3 Bill Early Brother 3 Bill Alcohol abuse Father Colby Early Father Colby [...] Brother 2 Irving (Age 70) Brother 3 Bill Father Colby (Age 52) Maternal Grandmother Elfego [...] on file Legal Sex Male 7:32 PM SAFETY ADMINISTRATOR Gender Identity Not on file Sexual Orientation Not on file Obstetrics History Last Filed Vital Signs Vital Sign Reading Time Taken Comments Blood Pressure 90/60 09/21/2024 1:37 PM SAFETY ADMINISTRATOR Pulse 87 09/21/2024 1:37 PM SAFETY ADMINISTRATOR Temperature 36.2 C (97.2 F) 10/15/2023 3:35 PM SAFETY ADMINISTRATOR Respiratory Rate 18 10/15/2023 8:00 AM SAFETY ADMINISTRATOR Oxygen Saturation 96% 09/21/2024 1:37 PM SAFETY ADMINISTRATOR Inhaled Oxygen Concentration - - Weight 129.7 kg (286 lb) 09/21/2024 1:37 PM SAFETY ADMINISTRATOR Height 185.4 cm (6' 1) 09/21/2024 1:37 PM SAFETY ADMINISTRATOR Body Mass Index 37.73 09/21/2024 1:37 PM SAFETY ADMINISTRATOR Plan of Treatment Health Maintenance Due Date Last Done Comments Albumin Creatinine Ratio, Urine 1945 Hepatitis C Screening 1945 Dilated Eye Exam 1945 Foot Exam 1945 Hepatitis B Screening 12/09/1963 Pneumococcal vaccine 65+ (1 of 2 - PCV) 1964 Zoster Vaccine (1 of 2) 12/09/1995 Well Visit 65+ 2010 Depression Screening 08/14/2023 08/14/2022 Hemoglobin A1C 04/13/2024 10/14/2023, 0 06/2024, 11/05/2022, Additional history exists Covid-19 Vaccine [...] Screening Discontinued Medical Devices Implanted Type Area Child Nurse Device Identifier Shelf Expiration Date Model / Serial / Lot Daig [employer] [id number] Angio-Seal Vip Bondek-Plus 6fr .035in 70cm Hemostatic Latex Free - [id number] Implanted:Qty: 1 on 01/06/2019 by Sanjiv Starkey MD at [facility] Right: Groin [employer]ig [employer] 08/05/2019 [id number] / / [id number] [employer] Misael Angio-Seal Vip 6fr Closere Device [id number] - [id number] Implanted:Qty: 1 on 08/07/2022 by Sanjiv Starkey MD at [facility] [employer]ael 03/05/2023 [id number] / / [id number] [employer] Cement Bone Simplex Gentamicin High Viscosity 40gm 6195-1-001 - [id number] Implanted:Qty: 1 on 12/03/2022 by Thuan Servin MD at [facility] Left: Knee [employer] 05/05/2024 6195-1-001 / / [id number] [employer] Attune Cruciate Retain Cementless Knee Left 9 Component Femoral [id number] - [id number] Implanted:Qty: 1 on 12/03/2022 by Thuan Servin MD at [facility] Left: Knee [employer] 06/05/2031 [id number] / / [id number] [employer] Attune 41mm Cemented Medialize Knee Dome Patellar Aox Sterile [id number] - [id number] Implanted:Qty: 1 on 12/03/2022 by Thuan Servin MD at [facility] Left: Knee [employer] 03/05/2027 [id number] / / [id number] [employer] Attune 10mm Cruciate Retaining Fix Bearing Knee 9 Insert Tibial [id number] - [id number] Implanted:Qty: 1 on 12/03/2022 by Thuan Servin MD at [facility] Left: Knee [employer] 08/05/2027 [id number] / / [id number] 1506-21-010 Attune Tibial Base Affixium Fixed Bearing Size 10 Implanted:Qty: 1 on 12/03/2022 by Thuan Servin MD at [facility] Left: Knee [employer] [id number] 09/04/2032 [id number] / [id number] Procedures Procedure Name Priority Date/Time Associated Diagnosis Comments LIPID PANEL Routine 12/06/2024 1:28 PM SAFETY ADMINISTRATOR EGFR Routine 10/15/2023 5:48 AM SAFETY ADMINISTRATOR HEMOGLOBIN A1C STAT 10/14/2023 2:19 AM SAFETY ADMINISTRATOR COLONOSCOPY 09/24/2023 2:16 PM SAFETY ADMINISTRATOR from Last 3 Months or Most Recently Relevant to Health Maintenance Results * (ABNORMAL) Lipid panel (12/06/2024 1:28 PM SAFETY ADMINISTRATOR) Pathologist [facility] SCRIBED Cholesterol, Total 107 30 - 199 mg/dL [facility] SCRIBED Triglycerides 75 <=149 mg/dL [facility] SCRIBED HDL 37(A) >=40 mg/dL [facility] SCRIBED LDL 54 <=129 mg/dL [facility] Scribed Non-HDL Cholesterol 70 NONE mg/dL [facility] SCRIBED Total Cholesterol/HDL Ratio 107 NONE [facility] Blood us Historical Provider LAB BLOOD ORDERABLES Edit ed Result - Final [facility] * (ABNORMAL) eGFR (10/15/2023 5:48 AM SAFETY ADMINISTRATOR) Pathologist [facility] eGFR 48(L) >=60 mL/min/1. 73 m2 [facility] Comment: Interpretive Data Reference Interval [...] of Race in Diagnosing Kidney Disease, JASN 202). The CKD-EPI equation should not be used for patients with unstable renal function and has not been validated in children and those over 70. Current interpretive data was last reviewed 2021. Blood 10/15/2023 5:48 AM SAFETY ADMINISTRATOR 10/15/2023 6:08 AM SAFETY ADMINISTRATOR Andrade Conti MD LAB BLOOD ORDERABLES Martha l Result Performing Organization Address City/[facility]/ZIP Co de Phone Number [facility] [place] [address] * (ABNORMAL) Hemoglobin A1c (10/14/2023 2:19 AM SAFETY ADMINISTRATOR) Hgb A1C 6.4(H) 4.0 - 5.6 % [facility] Estimated Average Glucose 137 mg/dL [facility] Comment: The ADA recommends reporting an estimated Average Glucose (eAG) with all Hemoglobin A1c results using the equation derived from a study of 507 normal and diabetic adults. Minority populations were underrepresented and children were not included. (Diabetes Care 2020; 43(S1): S66-S76). The eAG is not equivalent to a fasting glucose. Blood 10/14/2023 2:19 AM SAFETY ADMINISTRATOR 10/14/2023 2:28 AM SAFETY ADMINISTRATOR us Maribell Basilio MD LAB BLOOD ORDERABLES Final Result Performing Organization Address City/[facility]/ZIP Co de Phone Number [facility] [place] [address] * COLONOSCOPY (09/24/2023 2:16 PM SAFETY ADMINISTRATOR) Anatomical Region Laterality Modality Other Narrative Procedure Note Alli Ervin MD - 09/24/2023 2:16 PM [facility] Patient Name: Carl Guzman Procedure Date: 09/24/2023 2:16 PM Date of : 1945 Admit Type: Outpatient Age: 77 Gender: Male Attending MD: Alli Ervin M.D. Room: [facility] ENDOSCOPY ROOM 9 Note Status: [...] scope was passed under direct vision.The CF [id number] endoscope was introduced through the anus and advanced to the cecum, identified by appendiceal orifice and ileocecal valve. The colonoscopy was performed without difficulty. The patient tolerated the procedure well. The qualityof the bowel preparation was evaluated using the BBPS ([place] Bowel Preparation Scale) with scores of:Right Colon [...] On: 09/24/2023 2:16 PM Recognized by the [place] [employer] Gastrointestinal Endoscopy for promoting quality in endoscopy Alli Ervin MD ENDOSCOPY PROCEDURES Final Result from Last 3 Months or Most Recently Relevant to Health Maintenance Insurance [facility] MEDICARE [place]BS MEDICARE [place] [facility] MEDICARE MEDICARE MEDICARE Advance Directives For more information, please contact: [phone] Documents on File Type Date Recorded Patient 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 Expl anation Power of Benefits Consulting Analyst 08/15/2021 7:19 AM * Full Code (Latest [...] Agents on File Name Relationship Healthcare Agent [facility] Communication [facility] Agent Care Teams Collar Cutter Relationship Specialty Start Date End Date Leonila Chapa MD [address] [address] PCP - General Family Medicine 12/29/17 Chinmay Shannon DPM [address] [place] [address] Referring Physician Foot and Ankle Surg 08/26/22 Zach Ojeda PA [address] [facility] [place] [address] Orthopedic Surgery 12/06/22 Yahaira Westfall MD [address] [facility] [place] [place] [address] Consulting Physician Internal Medicine 05/20/23
--- OUTSIDE RECORDS SUMMARY | 2025-04-26 02:37 | XMS_ITS | Clinical Summary ---
Author Organization [facility] Address [address] [place] [address] Care Team Providers Care Marine Mammal Trainer Name Role Phone Leonila Chapa MD Primary Care Provider [phone] Social History Tobacco Use Types Packs/Day Years [...] patient's age to complete this topic Insurance [facility] Care Teams Marine Mammal Trainer Relationship Specialty Start Date End Date Leonila Chapa MD [address] [facility] [address] [place] [address] PCP - General FAMILY PRACTICE 06/22/24
--- OUTSIDE RECORDS SUMMARY | 2025-04-26 02:37 | XMS_ITS | Clinical Summary ---
Author Organization [facility] Address [address] [place] [address] Care Team Providers Care Roll Wrapper Name Role Phone Leonila Chapa MD Primary Care Provider + Source Comments [facility],non-owned Affiliates and Associated Physician Practices is amultiple site organization consisting of ambulatory clinics and hospital sitesin [place], [place], [place] and [place]. This disclosure is being madepursuant to the Care Everywhere program and may not contain all information available regarding this patient. Last updated 18.[facility] [employer] Allergies Active Allergy Reactions Criticality Noted Date [...] on file Legal Sex Male 6:09 AM SLURRY MAN Gender Identity Not on file Sexual Orientation [...] season) 2024 DEPRESSION SCREENING 10/06/2024 INFLUENZA VACCINE (#1) 2025 HEPATITIS B VACCINE Aged Out No [...] patient's age to complete this topic Insurance [facility] Care Teams Roll Wrapper Relationship Specialty Start Date End Date Leonila Chapa MD [address] [facility] [address] [place] [address] PCP - General Family Medicine 02/11/17
--- OUTSIDE RECORDS SUMMARY | 2025-04-26 02:37 | XMS_ITS | Encounter Summary ---
Author Organization [facility] Healthcare Address [address] [place] [address] Care Team Providers Care Visual Merchandiser Name Role Phone Leonila Chapa MD Primary Care Provider Chinmay ShannonM Unavailable [phone] Zach Ojeda Unavailable [phone] Yahaira Westfall MD Unavailable [phone] Encounter Details Date Type Department Care Team (Late st Contact Info) Description 05/29/2021 Telephone [facility] - Interventional Radiology [address] [place] [address] Cristina Guzman RN Social History Tobacco Use Types Packs/Day Years Used Date Smoking Tobacco: Never Smokeless Tobacco: Never Alcohol Use Standard Drinks/Week Comments Yes 2 (1 standard drink = 0.6 oz pur e alcohol) seldom Sex and Gender Information Value Date Recorded Sex Assigned at Not on file 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 Gender Identity Not on file Sexual Orientation Not on file documented as of this encounter Plan of Treatment Not on file documented as of this encounter Visit Diagnoses Not on filedocumented in this encounter Additional Health Concerns Infection Onset Date Last Indicated Resolved Time COVID: Suspected 03/16/2022 03/16/2022 03/16/2022 5:28 PM CDT COVID: Suspected 10/14/2023 10/14/2023 10/14/2023 3:53 AM OPTICAL GOODS WORKER documented as of this encounter Care Teams Visual Merchandiser Relationship Specialty Start Date End Date Leonila Chapa MD [address] [facility] [address] [place] [address] PCP - General Family Medicine 12/29/17 Chinmay Shannon, SILVA [address] [place] [address] Referring Physician Foot and Ankle Surg 08/26/22 Zach Ojeda PA [address] [facility] [address] [place] [address] Orthopedic Surgery 12/06/22 Yahaira Westfall MD [address] [facility] [place] [address] Consulting Physician Internal Medicine 05/20/23 documented as of this encounter
--- OUTSIDE RECORDS SUMMARY | 2025-04-26 02:37 | XMS_ITS | Encounter Summary ---
Author Organization [facility] Healthcare Address [address] [place] [address] Care Team Providers Care Technical Maintenance Technician Name Role Phone Leonila Chapa MD Primary Care Provider Chinmay ShannonM Unavailable [phone] Zach Ojeda Unavailable [phone] Yahaira Westfall MD Unavailable [phone] Encounter Details Date Type Department Care Team (Late st Contact Info) Description 06/29/2021 Telephone 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 Gender Identity Not on file Sexual Orientation Not on file documented as of this encounter Plan of Treatment Not on file documented as of this encounter Visit Diagnoses Not on filedocumented in this encounter Additional Health Concerns Infection Onset Date Last Indicated Resolved Time COVID: Suspected 03/16/2022 03/16/2022 03/16/2022 5:28 PM CDT COVID: Suspected 10/14/2023 10/14/2023 10/14/2023 3:53 AM RECONDITIONING ASSOCIATE documented as of this encounter Care Teams Technical Maintenance Technician Relationship Specialty Start Date End Date Leonila Chapa MD [address] [facility] [address] [place] [address] PCP - General Family Medicine 12/29/17 Chinmay Shannon, SILVA [address] [place] [address] Referring Physician Foot and Ankle Surg 08/26/22 Zach Ojeda PA [address] [facility] [address] [facility] [place] [address] Orthopedic Surgery 12/06/22 Yahaira Westfall MD [address] [facility] [place] [address] Consulting Physician Internal Medicine 05/20/23 documented as of this encounter
--- OUTSIDE RECORDS SUMMARY | 2025-04-26 02:37 | XMS_ITS | Encounter Summary ---
Author Organization [facility] Healthcare Address [address] [place] [address] Care Team Providers Care Luster Applicator Name Role Phone Leonila Chapa MD Primary Care Provider Chinmay Shannon DPM Unavailable [phone] Zach Ojeda Unavailable [phone] Yahaira Westfall MD Unavailable [phone] Encounter Details Date Type Department Care Team (Late st Contact Info) Description 06/28/2021 Telephone [facility] - Interventional Radiology [address] [place] [address] Cristina Guzman RN Social History Tobacco Use Types Packs/Day Years Used Date Smoking Tobacco: Never Smokeless Tobacco: Never Alcohol Use Standard Drinks/Week Comments Yes 2 (1 standard drink = 0.6 oz pur e alcohol) seldom Sex and Gender Information Value Date Recorded Sex Assigned at Not on file 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 Testing performed by the [facility] Molecular Infectious Disease Laboratory. The 2019-Novel Coronavirus [...] on November 09, 2020. Testing performed by: [facility], [address] [place] [address], [id number] First COVID-19 test? Unknown [facility] Comment:Testing performed by : [facility], [address] [place] [address], [id number] Employeed in healthcare? No [facility] Comment:Testing performed by : [facility], [address] [place] [address], [id number] status? No [facility] Comment:Testing performed by : [facility], [address] [place] [address], [id number] Group care resident? No [facility] Comment:Testing performed by : [facility], [address] [place] [address], [address] Hospitalized? No [facility] Comment:Testing performed by : [facility], [address] [place] [address], [id number] Is patient in ICU? No [facility] Comment:Testing performed by : [facility], [address] [place] [address], [id number] Symptomatic as defined by CDC? No [facility] Comment:Testing performed by : [address], [address] Nasopharyngeal 06/29/2021 2: 00 PM CDT 06/29/2021 4:51 PM CDT Brianna [facility] - 06/29/2021 9:35 PM CDT What is the reason for testing?->Screening prior to scheduled procedure or surgery (batch) Nestor Whittington MD LAB MICROBIOLOGY - GENERA L ORDERABLES Final Result Performing Organization Address [facility]/ZIP Co de Phone Number [facility] [address] [place] [address] * Protime-INR (06/29/2021 12:12 PM CDT) Pathologist [facility] PT 12.4 9.5 - 13.6 sec [facility] INR 1.1 0.9 - 1.2 [facility] Comment: Interpretive data Oral anticoagulant therapeutic ranges: Venous thromboembolism prophylaxis or treatment: 2.0-3.0 CARDIOLOGY Standard range: 2.0-3.0 High-intensity range: 2.5-3.5 Refer to indication-specific guidelines for appropriate target ranges for prosthetic heart valve replacement. Current interpretive data was last revised on 2019. Blood 06/29/2021 12:1 2 PM CDT 06/29/2021 12:12 PM CDT Nestor Whittington MD LAB BLOOD ORDERABLES Martha l Result Performing Organization Address [facility] Co de Phone Number [facility] [address] Department [place] [address] * (ABNORMAL) CBC with auto differential (06/29/2021 12:12 PM CDT) Pathologist [facility] WBC 3.8 3.8 - 9.9 K/cumm [facility] Hgb 10.8(L) 13.0 - 17.5 g/dL [facility] Hct 34.0(L) 38.9 - 50.3 % [facility] Plt 154 150 - 400 K/cumm [facility] MPV 9.2 9.1 - 12.3 fL [facility] RBC 3.47(L) 4.30 - 5.80 M/cumm [facility] MCV 98.0(H) 81.3 - 96.4 fL [facility] MCH 31.1 27.1 - 33.3 pg [facility] MCHC 31.8(L) 32.3 - 35.7 g/dL [facility] RDW CV 14.2 11.1 - 14.9 % [facility] RDW SD 50.5(H) 35.7 - 48.1 fL [facility] NRBC abs 0.00 0.00 - 0.01 K/cumm [facility] Blood 06/29/2021 12:1 2 PM CDT 06/29/2021 12:12 PM CDT us Nestor Whittington MD LAB BLOOD ORDERABLES Martha l Result [facility] [address] [place] [address] * (ABNORMAL) Basic metabolic panel (06/29/2021 12:12 PM CDT) Sodium 142 135 - 145 mmol/L [facility] Potassium, pl 4.2 3.3 - 4.9 mmol/L [facility] Chloride 102 97 - 110 mmol/L [facility] CO2 35(H) 22 - 32 mmol/L [facility] Anion gap 5 2 - 15 mmol/L [facility] BUN 18 8 - 25 mg/dL [facility] Creatinine 1.13 0.80 - 1.30 mg/dL [facility] Glucose 145 70 - 199 mg/dL [facility] Comment: Interpretive Data Fasting glucose >/= 126 [...] 2017. Calcium 9.1 8.5 - 10.3 mg/dL [facility] Blood 06/29/2021 12:1 2 PM CDT 06/29/2021 12:12 PM CDT Nestor Whittington MD LAB BLOOD ORDERABLES Martha l Result [facility] [address] [place] [address] documented in this encounter Visit Diagnoses Diagnosis Right renal mass- Primary Unspecified disorder of kidney and ureter Right renal mass Unspecified disorder of kidney and ureter documented in this encounter Additional Health Concerns Infection Onset Date Last Indicated Resolved Time COVID: Suspected 03/16/2022 03/16/2022 03/16/2022 5:28 PM CDT COVID: Suspected 10/14/2023 10/14/2023 10/14/2023 3:53 AM LAMINATOR HAND documented as of this encounter Care Teams Luster Applicator Relationship Specialty Start Date End Date Leonila Chapa MD [address] [address] PCP - General Family Medicine 12/29/17 Chinmay Shannon DPM [address] [place] [address] Referring Physician Foot and Ankle Surg 08/26/22 Zach Ojeda PA [address] [facility] [place] [address] Orthopedic Surgery 12/06/22 Yahaira Westfall MD [address] [facility] [place] [address] Consulting Physician Internal Medicine 05/20/23 documented as of this encounter
--- NOTE | 2025-04-26 02:39 | ECG_ITS ---
Test Date: 2025-04-26 03:07:50 Measurements Intervals [place] Rate: 67 P: 0 MT: 0 QRS: -51 QRSD: 158 T: 138 QT: 449 QTc: 476 Interpretive Statements ATRIAL FIBRILLATION LEFT AXIS DEVIATION [QRS AXIS < -30] LEFT BUNDLE BRANCH BLOCK [120+ ms QRS DURATION, 80+ ms Q/S IN V1/V2, 85+ ms R IN I/aVL/V5/V6] Compared to ECG 04/13/2025 18:24:18 No significant changes Electronically Signed On 04-26-2025 16:41:57 CDT by Gunner Bar M.D.
[2025-04-26] MEDS: LACTATED RINGERS 1,000 ML 999 ML IV CONT (02:55)
[2025-04-26 02:57] LABS: Hematocrit 27.8 % (42.0-52.0); Hemoglobin 9.1 g/dL (14.0-18.0); Immature Granulocyte Percent A 1.5 % (0-0.5); Lymphocytes Absolute Auto 0.48 K/mm3 (0.9-3.2); Mean Corpuscular HGB Conc 32.7 g/dl (32-36); Mean Corpuscular Hemoglobin 33.2 pg (26-34); Mean Corpuscular Volume 101.5 fl (80-100); Nucleated Red Blood Cells Absolute Auto 0.000 K/mm3 (0.0-0.012); Nucleated Red Blood Cells Perc 0.0 % (0.0-0.2); Platelet Count Result 201 k/mm3 (150-375); Red Blood Count 2.74 M/mm3 (4.6-6.20); White Blood Count 7.2 K/mm3 (4.5-10.0)
[2025-04-26 03:12] LABS: Add Urine Microscopic? YES; Appearance Urine Clear (Clear); Glucose Urine UA Negative (Negative); Leukocyte Esterase Ur Trace LEU/UL (Negative); Nitrate Urine Negative (Negative); Non Pathogenic Casts 0-2; Specific Grav Ur 1.019 (1.001-1.035)
[2025-04-26 03:15] LABS: INR 2.0; Prothrombin Time 21.8 Seconds (11.1-14.7)
[2025-04-26 03:16] LABS: Partial Thromboplastin Time 50.8 Seconds (22.3-36.8)
[2025-04-26 03:17] LABS: Alanine Aminotransferase 25 U/L (6-50); Albumin Level 2.9 g/dL (3.5-5.1); Alkaline Phosphatase 335 U/L (38-126); Anion Gap 5 mmol/L (4-12); Aspartate Amino Transferase 41 U/L (17-59); Bilirubin,Total 1.5 mg/dL (0.2-1.3); Blood Urea Nitrogen 37 mg/dL (9-20); Calcium 9.0 mg/dL (8.4-10.2); Carbon Dioxide 24 mmol/L (22-30); Chloride 102 mmol/L (98-107); Estimated CRCL calculation 57 ml/min; Estimated Glomerular Filt Rate 54; Glucose 158 mg/dL (65-110); Potassium 5.1 mmol/L (3.4-5.0); Sodium 131 mmol/L (137-145); Total Protein 6.5 g/dL (6.3-8.2)
--- NOTE | 2025-04-26 03:17 | ED.AMS ---
HPI - Altered Mental Status General Chief Complaint: Altered Mental Status Stated Complaint: AMS, FROM [place] Time Seen by Provider: 04/26/25 02:31 History of Present Illness HPI narrative: 79-year-old male with a past medical history including hypertension, diabetes, atrial fibrillation, CHF. Patient presents from [facility] for evaluation of mental status changes. Patient has been recently seen here for a right hemiarthroplasty on 04/15 after a fall with hip fracture. Patient has been doing well with rehab and progressing appropriately. Ambulatory at the facility. Getting pain medicines. This morning during morning rounds the PT staff noted that patient was having some difficulties with alert oriented questions or he sometimes throughout the year but otherwise was able to answer the questions. The physician over the facility did evaluate the patient and ordered imaging studies, laboratory assessments and a urinalysis. These were conducted including head CT, CBC and CMP but urinalysis never sent. Patient has not had any falls or injuries. He is awake alert oriented answering all my questions appropriately x4. He denies any concerns at this time. He is not sure why they sent him here to the emergency department at 3:00 a.m. report from nursing staff was for mental status changes but otherwise very limited. Patient not in any acute distress and denies any symptoms at this time. He is asking for some pain medicine for his right hip. Related Data Home Medications ?Medication ?Instructions ?Recorded ?Confirmed ?Last Taken ?Type evolocumab 140 mg/mL subcutaneous 140 mg subcut [id number] 05/07/21 04/20/25 04/05/25 History pen injector (Repatha SureClick) Allergies Allergy/AdvReac Type Severity Reaction Status Date / Time Penicillins Allergy Severe Anaphylaxis Verified 04/20/25 17:04 liraglutide Allergy Unknown Hives / Verified 04/20/25 17:04 Red Face Pxglhiv-AOV-BrK Reductase AdvReac Unknown Muscle Verified 04/20/25 17:04 Inhibitor (Vucjeaq-Esz-Dls Spasms Reductase Inhibitor) Review of Systems Review of Systems: As reviewed above in HPI [facility] Past Medical History Medical History Acute exacerbation of CHF (congestive heart failure) History of renal cell carcinoma History of prostate cancer Skin tear of right lower leg without complication Pre-ulcerative corn or callous Kidney mass Pancreatic mass Nausea & vomiting Anemia Acquired deformity of left thigh Preoperative clearance Foot lesion Cellulitis Elsa tropicalis infection Hypotension Fall Bronchitis Elevated carbon dioxide level Alkaline phosphatase elevation Prostate cancer screening Body mass index (BMI) of 40.1 to 44.9 in adult Degenerative joint disease of knee Renal malignant neoplasm Prostate CA Intracranial atherosclerosis Eczema Hypertensive urgency Non-STEMI (non-ST elevated myocardial infarction) Most recent non-STEMI 12/11/2018 Obstructive sleep apnea Intolerant to CPAP Prostate cancer Renal cell carcinoma Elevated PSA, between 10 and less than 20 ng/ml Vertigo Morbid (severe) obesity due to excess calories Abnormality of gait CAD (coronary artery disease) Multivessel coronary artery disease with stents to the proximal and distal LAD, mid right coronary artery July 2014 with prior catheterization performed [facility] January 2018 had severe diffuse 3 vessel coronary artery disease with multiple stenoses of about 70% and mid to distal LAD between previously placed proximal and distal stents, 50-70% diffuse stenosis of the circumflex with a proximal stenosis of: To and total occlusion of a the marginal branch and diffuse distal right coronary artery disease with occluded RPDA referred for CABG DM neuropathy with neurologic complication GERD (gastroesophageal reflux disease) Dyslipidemia Hypertension Surgical History Surgical History History of right hip hemiarthroplasty Status post open reduction with internal fixation of fracture Of left leg at age 21 Stented coronary artery Hx of tonsillectomy S/P CABG (coronary artery bypass graft) (04/2018) YESENIA to LAD, vein graft to OM, radial graft to RPDA, RCA was diffusely diseased and not a great target for bypass, LAD was also diffusely diseased Family History Family History Father Family history of heart disease in male family member before age 55 Acute myocardial infarction Hypertension Mother Family history of heart disease in male family member before age 55 Acute myocardial infarction Emphysema of lung Asthma Sibling Family history of heart disease in male family member before age 55 Acute myocardial infarction Hypertension Polycystic kidney disease Sibling Family history of heart disease in male family member before age 55 Acute myocardial infarction Breast cancer Sibling Emphysema of lung Cerebrovascular accident Son Acute myocardial infarction Social History Social History Social History: He is and lives alone. He has an adult son and a daughter. 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 He is a lifelong nonsmoker and does not drink alcohol. Code status: Full code (he would not want to be on long-term life support or have a tracheostomy or PEG tube.) Surrogate decision maker: Adjacent (son) Smoking status: Never smoker Second hand tobacco smoke exposure: No Alcohol intake: never Substance use: never Substance use type: does not use Do You Feel Safe in your Home?: Yes Lack of Transportation: No Lack of Food: Sometimes True Current Housing: I Have Housing Concerned About Future Housing: YES Difficulty Paying Gas/Electric Bills: YES Difficulty Paying for Meds: YES Currently Unemployed: No Education: Decline to Answer Difficulty w/ Childcare or Family Care: No Living arrangements: alone Occupation/Education: retired Gender identity (if verbalized by the patient): Male Sexual Orientation (if Verbalized by the Patient): Straight or Heterosexual Spiritual care concerns: No Exam Narrative: GENERAL: [Well-appearing, well-nourished, and in no acute distress.] HEAD: [Normocephalic, atraumatic.] EYES: [PERRLA and EOMI.] ENT: Nares clear, no rhinorrhea or epistaxis. Mucous membranes moist. NECK: Supple. CHEST: [Clear to auscultation. No respiratory distress.] HEART: [Regular rate and rhythm]. No murmur heard. [Normal peripheral pulses.] ABDOMEN: [Soft, nondistended], [nontender], [No rigidity or guarding] EXTREMITIES: Right hemiarthroplasty scar appears clean, dry, intact, no serosanguineous or purulent discharge. No redness overlying it. Restricted range of motion consistent with his exam from previous notes indicating limited flexion extension of the extremity secondary to pain. SKIN: Warm, dry, no rash. NEURO: No focal or acute neurological deficits, awake alert oriented x 4, moving all extremities with equal symmetric strength and no sensation changes. No facial asymmetries. PSYCH: [Normal mood and affect.] Course Vital Signs Vital signs: Vital Signs Temperature 36.6 C 04/26/25 02:43 Pulse Rate 75 04/26/25 02:43 Respiratory Rate 14 04/26/25 02:43 Blood Pressure 96/57 L 04/26/25 02:43 Pulse Oximetry 98 04/26/25 02:43 Oxygen Delivery Room Air 04/26/25 02:43 Temperature 36.6 C 04/26/25 02:43 Pulse Rate 85 04/26/25 03:46 Respiratory Rate 17 04/26/25 04:31 Blood Pressure 113/60 04/26/25 04:46 Pulse Oximetry 99 04/26/25 04:46 Oxygen Delivery Room Air 04/26/25 02:43 MDM - Altered Mental Status MDM Narrative Medical decision making narrative: 79-year-old male with a past medical history including hypertension, diabetes, atrial fibrillation, CHF. Patient presents from [facility] for evaluation of mental status changes. Patient has been recently seen here for a right hemiarthroplasty on 04/15 after a fall with hip fracture. Patient has been doing well with rehab and progressing appropriately. Ambulatory at the facility. Getting pain medicines. This morning during morning rounds the PT staff noted that patient was having some difficulties with alert oriented questions or he sometimes throughout the year but otherwise was able to answer the questions. The physician over the facility did evaluate the patient and ordered imaging studies, laboratory assessments and a urinalysis. These were conducted including head CT, CBC and CMP but urinalysis never sent. Patient has not had any falls or injuries. He is awake alert oriented answering all my questions appropriately x4. He denies any concerns at this time. He is not sure why they sent him here to the emergency department at 3:00 a.m. report from nursing staff was for mental status changes but otherwise very limited. Patient not in any acute distress and denies any symptoms at this time. He is asking for some pain medicine for his right hip. Patient is not in any acute physical distress, awake alert oriented x4. Moving all extremities without any lateralizing symptoms. Denies any head trauma or loss of consciousness. CT scan was already performed earlier today at 2:00 p.m. that shows no acute intracranial hemorrhage or calvarial fracture and there has not been any new changes in his status or fall since noon before the image so no indication for repeat scan at this time. Laboratory studies reviewed from earlier today that shows chronic mild hyperkalemia 5.1, chronic LFT elevations but no acute findings. Repeat laboratory studies ordered and urinalysis added as that was not done earlier. Patient is requesting additional pain control medications and has been getting oxycodone for analgesia. Possible component of delirium versus over medication causing his symptoms of mental status concerns but presently he is not having any mental status changes or concerns during my assessment. Possibility of urinary tract infection, dehydration, worsening electrolyte abnormalities. Workup ordered including repeat CBC, CMP, urinalysis and patient given a fluid bolus and re-evaluated. Re-evaluated without any mental status changes or any acute concerns. Hemodynamically stable improved after fluids. Possible component of some dehydration leading towards his symptoms earlier today or polypharmacy with his pain medications every 4 hours. He has no leukocytosis or significant anemia. Electrolytes are at their baseline, away seems to have a little bit of hyperkalemia but only 5.1. EKG shows AFib which is chronic for him without any acute ischemic evidence. LFTs at their baseline from previous. No acute kidney injury or any lactic acidosis. Patient is safe for discharge back to the [facility] at this time. Report called and ambulance arranged. Medical Records Attestation: I reviewed the patient's medical records. Lab Data Attestation: I reviewed the patient's lab results. 04/26/25 02:50 04/26/25 02:50 Labs: Lab Results 04/26/25 Range/Units 02:50 WBC 7.2 (4.5-10.0) K/mm3 RBC 2.74 L (4.6-6.20) M/mm3 Hgb 9.1 L (14.0-18.0) g/dL Hct 27.8 L (42.0-52.0) % MCV 101.5 H (80-100) fl MCH 33.2 (26-34) pg MCHC 32.7 (32-36) g/dl RDW 13.9 (11.5-14.5) % Plt Count 201 (150-375) k/mm3 MPV 9.5 (7.4-10.4) fl Immature Gran % (Auto) 1.5 H (0-0.5) % Neut % (Auto) 77.2 H (45.5-73.1) % Lymph % (Auto) 6.7 L (18.3-44.2) % Shelby % (Auto) 11.8 H (2.6-8.5) % Eos % (Auto) 2.5 (0-4.4) % Baso % (Auto) 0.3 (0.2-1.2) % Lymph # (Auto) 0.48 L (0.9-3.2) K/mm3 Shelby # (Auto) 0.9 H (0.1-0.6) K/mm3 Eos # (Auto) 0.2 (0-0.3) K/mm3 Baso # (Auto) 0.0 (0.0-0.1) K/mm3 Abs Immat Gran (auto) 0.11 H (0.00-0.031) K/mm3 Absolute Neuts (auto) 5.5 (1.3-6.7) K/mm3 Absolute Nucleated RBC 0.000 (0.0-0.012) K/mm3 Nucleated RBC % 0.0 (0.0-0.2) % PT 21.8 H (11.1-14.7) Seconds INR 2.0 APTT 50.8 H (22.3-36.8) Seconds Sodium 131 L (137-145) mmol/L Potassium 5.1 H (3.4-5.0) mmol/L Chloride 102 (98-107) mmol/L Carbon Dioxide 24 (22-30) mmol/L Anion Gap 5 (4-12) mmol/L BUN 37 H (9-20) mg/dL Creatinine 1.29 (0.7-1.3) mg/dL Estim Creat Clear Calc 57 ml/min Estimated GFR 54 L (59 - ) Glucose 158 H (65-110) mg/dL Lactic Acid 1.3 (0.7-2.0) mmol/L Calcium 9.0 (8.4-10.2) mg/dL Total Bilirubin 1.5 H (0.2-1.3) mg/dL AST 41 (17-59) U/L ALT 25 (6-50) U/L Alkaline Phosphatase 335 H (38-126) U/L Total Protein 6.5 (6.3-8.2) g/dL Albumin 2.9 L (3.5-5.1) g/dL Urine Color Dark yellow (Yellow) Urine Appearance Clear (Clear) Urine pH 5.5 (5.0-9.0) Ur Specific Shirley 1.019 (1.001-1.035) Urine Protein Trace (Negative) mg/dL Urine Glucose (UA) Negative (Negative) mg/dL Urine Ketones Trace H (Negative) mg/dL Ur Blood (Man) Negative (Negative) Urine Nitrate Negative (Negative) Urine Bilirubin 1+ H (Negative) Urine Urobilinogen 2.0 H (<2.0) mg/dL Leukocyte Esterase Rfl Trace H (Negative) BROOKE/UL Urine RBC 0-2 (0-2) /hpf Urine WBC 0-5 (0-3) /hpf Ur Squamous Epith Cells None seen (Few) /hpf Urine Bacteria None seen /hpf Urine Casts 0-2 Discharge Plan Discharge Clinical Impression: Mental status change resolved, Dehydration Patient Disposition: Inpatient Rehab Facility Condition: Stable Patient Language: Turkish Prescriptions: No Action Repatha SureClick 140 mg/mL pen injector 140 mg subcut [id number] Rx Instructions: AND 15 OF MONTH acetaminophen [Pain Reliever (acetaminophen)] 325 mg tablet 650 mg PO Q6H PRN (Reason: Pain (Scale Score 1-3)) Qty: 300 0RF Eliquis 5 mg Tablet 5 mg PO Q12HR Qty: 60 0RF oxycodone-acetaminophen 5-325 mg Tablet 1 - 2 tablet PO Q4H PRN (Reason: pain) Qty: 40 0RF sennosides-docusate sodium [Senokot-S] 8.6-50 mg Tablet 1 tab-cap PO BID Qty: 30 0RF polyethylene glycol 3350 [Miralax] 17 gram Powder In Packet 17 g PO QAM Qty: 30 0RF furosemide 20 mg Tablet 20 mg PO DAILY Qty: 30 0RF diazepam 5 mg Tablet 5 mg PO Q8H PRN (Reason: Muscle Spasm) Qty: 30 0RF sodium chloride 1,000 mg tablet,soluble 500 mg PO BID Qty: 30 0RF insulin glargine [Lantus Solostar U-100 Insulin] 100 unit/mL (3 mL) insulin pen 25 unit subcut QHS Qty: 57 2RF Dose Instruction: INJECT 25 UNITS SUBCUTANEOUS TWICE DAILY Rx Instructions: INJECT 25 UNITS SUBCUTANEOUS TWICE DAILY ranolazine 500 mg tablet extended release 12 hr 500 mg PO Q12H Qty: 60 0RF polysaccharide iron complex [Poly-Iron] 150 mg iron capsule 150 mg PO DAILY Qty: 90 1RF pantoprazole 40 mg tablet,delayed release (DR/EC) 40 mg PO QAM Qty: 100 0RF carvedilol 12.5 mg tablet See Rx Instructions .ROUTE .COMPLEX Qty: 200 1RF Dose Instruction: TAKE 1 TABLET BY MOUTH EVERY 12 HOURS Rx Instructions: TAKE 1 TABLET BY MOUTH EVERY 12 HOURS nitroglycerin 0.4 mg tablet, sublingual See Rx Instructions .ROUTE .COMPLEX Qty: 100 0RF Dose Instruction: DISSOLVE 1 TABLET UNDER THE TONGUE EVERY 5 MINUTES NEEDED FOR CHEST PAIN. TO BE TAKEN NO MORE THAN THREE TIMES DAILY Rx Instructions: DISSOLVE 1 TABLET UNDER THE TONGUE EVERY 5 MINUTES NEEDED FOR CHEST PAIN. TO BE TAKEN NO MORE THAN THREE TIMES DAILY insulin aspart U-100 100 unit/mL (3 mL) insulin pen See Rx Instructions .ROUTE .COMPLEX Qty: 15 0RF Dose Instruction: INJECT UP TO 20 UNITS UNDER THE SKIN WITH EACH MEAL PER SLIDING SCALE, 60 UNITS DAILY Rx Instructions: INJECT UP TO 20 UNITS UNDER THE SKIN WITH EACH MEAL PER SLIDING SCALE, 60 UNITS DAILY Follow-up/Referrals: Randy Borrero MD [Primary Care Provider] - Time of Disposition: 04:13
== END 2025-04-26 05:08 ==
PROVIDERS: Emergency Provider Student in an Organized Health Care Education/Training Program; PCP Family Medicine
DX: R41.82 Altered mental status, unspecified (principal); E86.0 Dehydration; I48.91 Unspecified atrial fibrillation; I11.0 Hypertensive heart disease with heart failure; I50.9 Heart failure, unspecified; I25.2 Old myocardial infarction; E11.40 Type 2 diabetes mellitus with diabetic neuropathy, unspecified; E78.5 Hyperlipidemia, unspecified; G47.33 Obstructive sleep apnea (adult) (pediatric); M17.9 Osteoarthritis of knee, unspecified; K21.9 Gastro-esophageal reflux disease without esophagitis; Z96.641 Presence of right artificial hip joint; Z95.5 Presence of coronary angioplasty implant and graft; Z95.1 Presence of aortocoronary bypass graft; Z85.528 Personal history of other malignant neoplasm of kidney; Z85.46 Personal history of malignant neoplasm of prostate; Z86.2 Personal history of diseases of the blood and blood-forming organs and certain disorders involving the immune mechanism; Z79.4 Long term (current) use of insulin; Z79.01 Long term (current) use of anticoagulants; Z79.899 Other long term (current) drug therapy
CPT/HCPCS: 36415; 80053; 81001; 83605; 85025; 85610; 85730; 93005; 96360; 99284; J7120

== ENCOUNTER 2025-05-31 20:07 | Inpatient (IN) | payer MEDICARE, SELFPAY ==
[2025-05-31] VITALS (12 sets, daily range): BP systolic 88–135; BP diastolic 48–85; PULSE 41–71; RESP 13–21; O2SAT 98–100
--- NOTE | ~2025-05-31 | XR_ITS ---
EXAMINATION: XR chest 1V portable DATE: 05/31/2025 20:44 INDICATION: Shortness of breath TECHNIQUE: frontal view of the chest was obtained. COMPARISON: Chest radiograph dated 04/13/[address] dated 05/18/2023 FINDINGS: Left paracardial fat pad partially obscures the apex of the heart. No airspace opacities, pulmonary edema, pleural effusion or pneumothorax. Cardiomegaly. Median sternotomy wires, ostial markers and mediastinal surgical clips consistent with prior coronary artery bypass grafting. IMPRESSION: 1. No acute cardiopulmonary disease. Reviewed, dictated and finalized at location A.
--- NOTE | ~2025-05-31 | US_ITS ---
EXAMINATION: US abdomen limited DATE: 06/02/2025 18:38 INDICATION: Assess for evidence of cirrhosis TECHNIQUE: Multiple grayscale and Doppler ultrasound images of the abdomen were obtained. COMPARISON: CT dated 12/20/2022 FINDINGS: The pancreatic head and body are normal in appearance. The pancreatic tail is not visualized. The visualized proximal inferior vena cava is normal. Liver demonstrates coarsened echotexture with subtle ill-defined liver surface nodularity consistent with cirrhosis. No liver lesion identified. No intra hepatic biliary duct dilation suspected. Portal venous flow was seen in the hepatopetal, normal direction and has normal Doppler waveform. Minimal perihepatic ascites. The gallbladder is normal in appearance. There is no cholelithiasis. The common bile duct measures 4 mm, which is normal. Sonographic Carney sign was reported as negative by the lab rn. IMPRESSION: 1. Subtle finding liver surface nodularity with coarsened hepatic echotexture consistent with cirrhosis. 2. Minimal perihepatic ascites. Reviewed, dictated and finalized at location A. IMPRESSION: 1. Subtle finding liver surface nodularity with coarsened hepatic echotexture c onsistent with cirrhosis. 2. Minimal perihepatic ascites.
--- NOTE | ~2025-05-31 | CT_ITS ---
EXAMINATION: CT brain wo con DATE: 05/31/2025 22:26 INDICATION: Head injury. Patient on blood thinners. TECHNIQUE: Computed tomography (CT) of the head was performed without intravenous contrast. The dose-length product was 681.00 mGy-cm. Automated exposure control and iterative reconstruction technique were employed. COMPARISON: CT head dated 04/25/2025 FINDINGS: Mild generalized atrophy. There are scattered mild periventricular and subcortical white matter changes, most likely related to small vessel ischemic disease (microangiopathy). No acute infarction, hemorrhage, mass or mass effect. No ventriculomegaly or midline shift. Basilar cisterns are patent. There is intracranial atherosclerosis. There is mucosal thickening of the maxillary and the ethmoid sinuses. There is mild mucosal thickening in the sphenoid sinuses. Mastoids are pneumatized. No depressed skull fractures. IMPRESSION: 1. No acute intracranial abnormality. 2: Mild sinus disease. Reviewed, dictated and finalized at location O.
--- NOTE | ~2025-05-31 | CT_ITS ---
EXAMINATION: CT facial & cervical spine wo DATE: 05/31/2025 22:26 INDICATION: Status post fall. Trauma. TECHNIQUE: Computed tomography (CT) of the maxillofacial region and cervical spine was performed without intravenous contrast. The dose-length product (DLP) was 304.41 mGy-cm. Automated exposure control and iterative reconstruction technique were employed. COMPARISON: None FINDINGS: MAXILLOFACIAL CT: No acute facial fracture. There is carotid atherosclerosis. Small mucous retention cyst/polyp left maxillary antrum. Mild mucosal thickening of the right maxillary, ethmoid and frontal sinuses. Mastoids are pneumatized. No depressed skull fractures. There are small bilateral lower cervical lymph nodes, likely reactive. CERVICAL SPINE CT: Craniovertebral junction is normal. Odontoid process is normal. There is disc narrowing at C2-3 C5-6 and C6-7. There is degenerative anterolisthesis at C2-3. There is multilevel uncinate and facet hypertrophy. No acute fracture, subluxation or dislocation. IMPRESSION: 1. No acute fracture of the facial bones or cervical spine. Reviewed, dictated and finalized at location O.
--- NOTE | ~2025-05-31 | US_ITS ---
EXAMINATION: US renal BI, 06/01/2025 10:06 CDT HISTORY: AALIYAH with hyperkalemia Comparison: None Technique: Crandall-scale and color Doppler images were obtained. Findings: KIDNEYS: The renal cortices are intact with no solid masses or calculi, no hydronephrosis. Right Kidney: Right kidney superior pole simple cyst 3.8 x 4.7 cm. Right kidney measures 11 x 5.4 x 4.2 cm. Left Kidney: Left kidney limited, left kidney measures 10.4 x 6.5 x 5.7 cm. Bladder: The bladder is unremarkable. . Impression: 1. Simple appearing right renal cyst. Reviewed, dictated and finalized at location A. Impression: 1. Simple appearing right renal cyst.
--- NOTE | ~2025-05-31 | XR_ITS ---
XR hip RT 2V w AP pelvis 05/31/2025 22:31 Indication: Recent hip replacement. Fall. Procedure: AP pelvis and 2 views right hip Comparison: 04/13/2025 Findings: There is a right femoral bipolar hemiarthroplasty, well seated. There is degenerative change of the left hip. There is sclerosis of the acetabulum and left inferior pubic ramus, suspicious for fracture. There is lower lumbar spondylosis. Impression: 1: Possible fractures of the left acetabulum and inferior pubic ramus. Recommend correlation with CT. Reviewed, dictated and finalized at location O. Impression: 1: Possible fractures of the left acetabulum and inferior pubic ramus. Recommen d correlation with CT.
--- NOTE | 2025-05-31 20:14 | ECG_ITS ---
Test Date: 2025-05-31 20:20:29 Measurements Intervals Viola Rate: 48 P: 0 AL: 0 QRS: -56 QRSD: 152 T: 145 QT: 524 QTc: 472 Interpretive Statements SLOW ATRIAL FIBRILLATION WITH VENTRICULAR BIGEMINY LEFT AXIS DEVIATION LEFT BUNDLE BRANCH BLOCK BASELINE WANDER- I, III, AVR, V4-V6 ABNORMAL ECG Compared to ECG 04/26/2025 03:07:50 HEART RATE HAS DECREASED VENTRICULAR BIGEMINY NOW PRESENT Electronically Signed On 06-01-2025 06:25:23 CDT by Tra Guillaume D.O.
--- NOTE | 2025-05-31 20:42 | ED.SOB ---
HPI - SOB/Dyspnea General Chief Complaint: Shortness of Breath/Dyspnea <Autumn Palma APRN - Last Filed: 05/31/25 20:49> Stated Complaint: FALL, BARADYCARDIC <Autumn Palma APRN - Last Filed: 05/31/25 20:49> Time Seen by Provider: 05/31/25 20:08 <Autumn Palma APRN - Last Filed: 05/31/25 20:49> History of Present Illness HPI Narrative: Patient is a 79 year old male who presents to the ER with a funny feeling in my chest, shortness of breath, and injury after falling out of bed. He reports he was getting into bed when he slipped off and hit his nose on the nightstand. Patient also endorses bleeding to his right great toe. Patient reports he started experiencing shortness of breath and chest pain after the event. He also recently had hip replacement surgery (6 weeks ago), but he denies hip pain at this time. Patient endorses a history of of kidney cancer, a knee replacement, hip replacement, stent placement, and cardiac triple bypass. <Autumn Palma APRN - Last Filed: 05/31/25 20:49> Related Data Home Medications: Home Medications ?Medication ?Instructions ?Recorded ?Confirmed ?Last Taken ?Type evolocumab 140 mg/mL subcutaneous 140 mg subcut [id number] 05/07/21 05/23/25 04/05/25 History pen injector (Repatha SureMarioick) <Autumn Palma APRN - Last Filed: 05/31/25 20:49> Allergies/Adverse Reactions: Allergies Allergy/AdvReac Type Severity Reaction Status Date / Time Penicillins Allergy Severe Anaphylaxis Verified 05/31/25 20:30 liraglutide Allergy Unknown Hives / Verified 05/31/25 20:30 Red Face Vhaljkc-MNV-WgJ Reductase AdvReac Unknown Muscle Verified 05/31/25 20:30 Inhibitor (Pqiuxwy-Dwk-Tvs Spasms Reductase Inhibitor) <Autumn Palma APRN - Last Filed: 05/31/25 20:49> Review of Systems Review of Systems: All systems are reviewed and are negative unless stated otherwise in the HPI. <Rajesh London MD - Last Filed: 05/31/25 23:57> [facility] Past Medical History Medical History: Medical History Pulmonary hypertension Tricuspid regurgitation severe Hyponatremia Acute exacerbation of CHF (congestive heart failure) History of renal cell carcinoma History of prostate cancer Skin tear of right lower leg without complication Pre-ulcerative corn or callous Kidney mass Pancreatic mass Nausea & vomiting Anemia Acquired deformity of left thigh Preoperative clearance Foot lesion Cellulitis Elsa tropicalis infection Hypotension Fall Bronchitis Elevated carbon dioxide level Alkaline phosphatase elevation Prostate cancer screening Body mass index (BMI) of 40.1 to 44.9 in adult Degenerative joint disease of knee Renal malignant neoplasm Prostate CA Intracranial atherosclerosis Eczema Hypertensive urgency Non-STEMI (non-ST elevated myocardial infarction) Most recent non-STEMI 12/11/2018 Obstructive sleep apnea Intolerant to CPAP Prostate cancer Renal cell carcinoma Elevated PSA, between 10 and less than 20 ng/ml Vertigo Morbid (severe) obesity due to excess calories Abnormality of gait CAD (coronary artery disease) Multivessel coronary artery disease with stents to the proximal and distal LAD, mid right coronary artery July 2014 with prior catheterization performed [facility] January 2018 had severe diffuse 3 vessel coronary artery disease with multiple stenoses of about 70% and mid to distal LAD between previously placed proximal and distal stents, 50-70% diffuse stenosis of the circumflex with a proximal stenosis of: To and total occlusion of a the marginal branch and diffuse distal right coronary artery disease with occluded RPDA referred for CABG DM neuropathy with neurologic complication GERD (gastroesophageal reflux disease) Dyslipidemia Hypertension <Autumn Palma APRN - Last Filed: 05/31/25 20:49> Surgical History Surgical History: Surgical History History of right hip hemiarthroplasty Status post open reduction with internal fixation of fracture Of left leg at age 21 Stented coronary artery Hx of tonsillectomy S/P CABG (coronary artery bypass graft) (04/2018) YESENIA to LAD, vein graft to OM, radial graft to RPDA, RCA was diffusely diseased and not a great target for bypass, LAD was also diffusely diseased <Autumn Palma, DWIGHT - Last Filed: 05/31/25 20:49> Family History Family History: Family History Father Family history of heart disease in male family member before age 55 Acute myocardial infarction Hypertension Mother Family history of heart disease in male family member before age 55 Acute myocardial infarction Emphysema of lung Asthma Sibling Family history of heart disease in male family member before age 55 Acute myocardial infarction Hypertension Polycystic kidney disease Sibling Family history of heart disease in male family member before age 55 Acute myocardial infarction Breast cancer Sibling Emphysema of lung Cerebrovascular accident Son Acute myocardial infarction <Autumn Palma SHUTTLE REPAIRER - Last Filed: 05/31/25 20:49> Social History Social History: Social History Social History: He is and lives alone. He has an adult son and a daughter. 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 He is a lifelong nonsmoker and does not drink alcohol. Code status: Full code (he would not want to be on long-term life support or have a tracheostomy or PEG tube.) Surrogate decision maker: Adjacent (son) Smoking status: Never smoker Second hand tobacco smoke exposure: No Alcohol intake: never Substance use: never Substance use type: does not use Do You Feel Safe in your Home?: Yes Lack of Transportation: No Lack of Food: Sometimes True Current Housing: I Have Housing Concerned About Future Housing: YES Difficulty Paying Gas/Electric Bills: YES Difficulty Paying for Meds: YES Currently Unemployed: No Education: Decline to Answer Difficulty w/ Childcare or Family Care: No Living arrangements: alone Occupation/Education: retired Gender identity (if verbalized by the patient): Male Sexual Orientation (if Verbalized by the Patient): Straight or Heterosexual Spiritual care concerns: No <Autumn Palma, SHUTTLE REPAIRER - Last Filed: 05/31/25 20:49> Exam Narrative: General: Alert, awake, afebrile, pale, diaphoretic. HEENT: PERRL, no rhinorrhea, no post nasal drip, oropharynx clear, abrasion to bridge of the nose. Neck: Trachea midline, no JVD, no lymphadenopathy. Cardiovascular: Bradycardic with a regular rhythm concern for heart block, no murmurs, rubs or gallops, no peripheral edema. Respiratory: Clear to auscultation bilaterally, no tachypnea, no wheezing, no rhonchi, no rubs, no respiratory distress. Abdomen: Soft, nontender, nondistended, no rebound, no guarding, no peritoneal signs. Musculoskeletal: No joint swelling or deformity, normal muscle tone. Skin: No rashes or petechia, no signs of infection. Psychiatric: Alert and oriented, normal behavior and judgment for situation. Neurological: Alert and oriented to person, place, and time. Follows all commands. No focal deficits, speech is clear and fluent. <Rajesh London MD - Last Filed: 05/31/25 23:57> Course Vital Signs Vital signs: Vital Signs Pulse Rate 52 L 05/31/25 20:24 Respiratory Rate 21 H 05/31/25 20:24 Blood Pressure 88/54 L 05/31/25 20:24 Pulse Oximetry 99 05/31/25 20:24 Oxygen Delivery Room Air 05/31/25 20:24 Pulse Rate 65 05/31/25 23:16 Respiratory Rate 19 05/31/25 23:16 Blood Pressure 135/55 L 05/31/25 23:16 Pulse Oximetry 100 05/31/25 23:16 Oxygen Delivery Nasal Cannula 05/31/25 21:25 Oxygen Flow Rate 2 05/31/25 21:25 Fraction of Inspired Oxygen 28 05/31/25 21:25 <Autumn Palma APRN - Last Filed: 05/31/25 20:49> Vital Signs Pulse Rate 52 L 05/31/25 20:24 Respiratory Rate 21 H 05/31/25 20:24 Blood Pressure 88/54 L 05/31/25 20:24 Pulse Oximetry 99 05/31/25 20:24 Oxygen Delivery Room Air 05/31/25 20:24 Pulse Rate 65 05/31/25 23:16 Respiratory Rate 19 05/31/25 23:16 Blood Pressure 135/55 L 05/31/25 23:16 Pulse Oximetry 100 05/31/25 23:16 Oxygen Delivery Nasal Cannula 05/31/25 21:25 Oxygen Flow Rate 2 05/31/25 21:25 Fraction of Inspired Oxygen 28 05/31/25 21:25 <Rajesh London MD - Last Filed: 05/31/25 23:57> MDM - SOB/Dyspnea MDM Narrative Medical decision making narrative: The patient was evaluated by myself in the emergency department. History is obtained from patient who is an independent historian and physical exam was performed. External medical records were reviewed at this time. IV was established and pertinent tests were ordered. Patient was administered 1 L IV fluid bolus by EMS prior to arrival due to concern for hypotension. EKG was obtained which revealed a bradycardic rhythm at a rate of 48 beats per minute concerning for 3rd degree heart block. EKG was independently interpreted by me and is currently pending official cardiology read. EKG was sent to the foot doctor Dr. Starkey at 2100 and case was discussed with him. Given the patient's hypotension and concern for 3rd degree AV block he did recommend starting the patient on dopamine at a rate of 5. Blood work was obtained included interpreted by me revealing a white blood cell count of 3.9, hemoglobin 8.2, potassium of 6.4, creatinine of 2.03, lactic acid of 2.6 proBNP 3910. At this time, patient was administered 1 g of calcium gluconate, 10 units of IV insulin, 10 mg of nebulized albuterol, 25 g of dextrose and 10 g of Lokelma due to concern for hyperkalemia. Patient was also administered 1 g of IV atropine to bridge pending his hyperkalemia medications. On repeat assessment, patient's blood pressure is now significantly improved ranging into the 120 systolic. Heart rate is in the 60s. Repeat EKG revealed sinus rhythm at a rate of 70 beats per minute with a left bundle branch block. Case was discussed with the on-call foot doctor Dr. Starkey again at [id number] regarding withholding the dopamine as patient's bradycardia was likely due to the hyperkalemia and he is in agreement. Imaging studies obtained included Portable chest x-ray, CT brain, C-spine, facial bones without IV contrast and AP pelvis with right hip which was independently interpreted by me revealing concern for fractures of the left inferior pubic rami and left acetabulum otherwise no acute process, which is pending final radiology interpretation. At this time, case was discussed with the on-call orthopedic surgeon Dr. Garcia at [phone] and he agreed to evaluate the patient. Differential diagnosis considerations include AV block, dehydration, electrolyte derangements, infectious process such as pneumonia/ UTI causing sepsis. Comorbidities impacting this visit include none. I have evaluated and discussed social determinants of health with the patient that could potentially impact subsequent diagnosis and treatment plans. On repeat assessment of the patient, reevaluation revealed that the patient is doing well and is in no acute distress. Patient symptoms have improved since he arrived to our emergency department. Repeat vital signs were all reviewed and noted to be stable. Differential diagnosis and treatment plan were discussed with the patient at bedside. Patient agrees with discussion and after shared medical decision making agrees with admission. All questions were answered to the patient's satisfaction. Critical care time of 120 minutes, exclusive of separately performed procedures, necessary for treating or preventing eminent or life-threatening deterioration of patient's condition of hemodynamic instability secondary to severe hyperkalemia requiring IV insulin therapy, focused on patient care provided personally by me and time spent during initial evaluation, physical examination, ordering and performing treatments and interventions, ordering and reviewing laboratory studies, ordering and reviewing radiographic studies, re-evaluation of the patient's condition, evaluation of the patient's response to treatment, and discussion of patient case with multiple consultants. <Rajesh London MD - Last Filed: 05/31/25 23:57> Lab Data Result diagrams: 05/31/25 20:36 05/31/25 23:04 <Autumn Palma APRN - Last Filed: 05/31/25 20:49> Labs: Lab Results 05/31/25 05/31/25 05/31/25 Range/Units 20:36 21:05 21:37 WBC 3.9 L (4.5-10.0) K/mm3 RBC 2.53 L (4.6-6.20) M/mm3 Hgb 8.2 L (14.0-18.0) g/dL Hct 26.1 L (42.0-52.0) % MCV 103.2 H (80-100) fl MCH 32.4 (26-34) pg MCHC 31.4 L (32-36) g/dl RDW 15.5 H (11.5-14.5) % Plt Count 157 (150-375) k/mm3 MPV 9.7 (7.4-10.4) fl Immature Gran % (Auto) 0.5 (0-0.5) % Neut % (Auto) 70.3 (45.5-73.1) % Lymph % (Auto) 10.5 L (18.3-44.2) % [place] % (Auto) 13.0 H (2.6-8.5) % Eos % (Auto) 4.9 H (0-4.4) % Baso % (Auto) 0.8 (0.2-1.2) % Lymph # (Auto) 0.41 L (0.9-3.2) K/mm3 [place] # (Auto) 0.5 (0.1-0.6) K/mm3 Eos # (Auto) 0.2 (0-0.3) K/mm3 Baso # (Auto) 0.0 (0.0-0.1) K/mm3 Abs Immat Gran (auto) 0.02 (0.00-0.031) K/mm3 Absolute Neuts (auto) 2.8 (1.3-6.7) K/mm3 Absolute Nucleated RBC 0.000 (0.0-0.012) K/mm3 Nucleated RBC % 0.0 (0.0-0.2) % PT 19.7 H (11.1-14.7) Seconds INR 1.7 APTT 40.0 H (22.3-36.8) Seconds Sodium 131 L (137-145) mmol/L Potassium 6.4 H* (3.4-5.0) mmol/L Chloride 100 (98-107) mmol/L Carbon Dioxide 22 (22-30) mmol/L Anion Gap 9 (4-12) mmol/L BUN 38 H (9-20) mg/dL Creatinine 2.08 H (0.7-1.3) mg/dL Estim Creat Clear Calc 38 ml/min Estimated GFR 31 L (59 - ) Glucose 179 H (65-110) mg/dL POC Capillary Glucose 172 H (65-105) mg/dl Lactic Acid 2.6 H (0.7-2.0) mmol/L Calcium 9.0 (8.4-10.2) mg/dL Magnesium 2.1 (1.6-2.3) mg/dL Total Bilirubin 1.3 (0.2-1.3) mg/dL AST 44 (17-59) U/L ALT 21 (6-50) U/L Alkaline Phosphatase 293 H (38-126) U/L Troponin I 0.034 (0.000-0.034) ng/mL C-Reactive Protein 2.8 H (<1.0) mg/dL NT-Pro-B Natriuret Pep 3910 H (19.9-100) pg/mL Total Protein 6.9 (6.3-8.2) g/dL Albumin 3.4 L (3.5-5.1) g/dL Urine Color (Yellow) Urine Appearance (Clear) Urine pH (5.0-9.0) Ur Specific [place] (1.001-1.035) Urine Protein (Negative) mg/dL Urine Glucose (UA) (Negative) mg/dL Urine Ketones (Negative) mg/dL Ur Blood (Man) (Negative) Urine Nitrate (Negative) Urine Bilirubin (Negative) Urine Urobilinogen (<2.0) mg/dL Leukocyte Esterase Rfl (Negative) BROOKE/UL Urine RBC (0-2) /hpf Urine WBC (0-3) /hpf Ur Squamous Epith Cells (Few) /hpf Urine Bacteria /hpf Urine Casts 05/31/25 05/31/25 05/31/25 Range/Units 21:42 22:53 23:04 WBC (4.5-10.0) K/mm3 RBC (4.6-6.20) M/mm3 Hgb (14.0-18.0) g/dL Hct (42.0-52.0) % MCV (80-100) fl MCH (26-34) pg MCHC (32-36) g/dl RDW (11.5-14.5) % Plt Count (150-375) k/mm3 MPV (7.4-10.4) fl Immature Gran % (Auto) (0-0.5) % Neut % (Auto) (45.5-73.1) % Lymph % (Auto) (18.3-44.2) % [place] % (Auto) (2.6-8.5) % Eos % (Auto) (0-4.4) % Baso % (Auto) (0.2-1.2) % Lymph # (Auto) (0.9-3.2) K/mm3 [place] # (Auto) (0.1-0.6) K/mm3 Eos # (Auto) (0-0.3) K/mm3 Baso # (Auto) (0.0-0.1) K/mm3 Abs Immat Gran (auto) (0.00-0.031) K/mm3 Absolute Neuts (auto) (1.3-6.7) K/mm3 Absolute Nucleated RBC (0.0-0.012) K/mm3 Nucleated RBC % (0.0-0.2) % PT (11.1-14.7) Seconds INR APTT (22.3-36.8) Seconds Sodium 131 L (137-145) mmol/L Potassium 5.8 H (3.4-5.0) mmol/L Chloride 100 (98-107) mmol/L Carbon Dioxide 24 (22-30) mmol/L Anion Gap 7 (4-12) mmol/L BUN 39 H (9-20) mg/dL Creatinine 2.03 H (0.7-1.3) mg/dL Estim Creat Clear Calc 39 ml/min Estimated GFR 32 L (59 - ) Glucose 119 H (65-110) mg/dL POC Capillary Glucose 196 H 116 H (65-105) mg/dl Lactic Acid (0.7-2.0) mmol/L Calcium 9.0 (8.4-10.2) mg/dL Magnesium (1.6-2.3) mg/dL Total Bilirubin (0.2-1.3) mg/dL AST (17-59) U/L ALT (6-50) U/L Alkaline Phosphatase (38-126) U/L Troponin I (0.000-0.034) ng/mL C-Reactive Protein (<1.0) mg/dL NT-Pro-B Natriuret Pep (19.9-100) pg/mL Total Protein (6.3-8.2) g/dL Albumin (3.5-5.1) g/dL Urine Color Dark yellow (Yellow) Urine Appearance Clear (Clear) Urine pH 6.5 (5.0-9.0) Ur Specific [place] 1.015 (1.001-1.035) Urine Protein 1+ H (Negative) mg/dL Urine Glucose (UA) Negative (Negative) mg/dL Urine Ketones Trace H (Negative) mg/dL Ur Blood (Man) Negative (Negative) Urine Nitrate Negative (Negative) Urine Bilirubin 1+ H (Negative) Urine Urobilinogen 1.0 (<2.0) mg/dL Leukocyte Esterase Rfl Trace H (Negative) BROOKE/UL Urine RBC 0-2 (0-2) /hpf Urine WBC 0-5 (0-3) /hpf Ur Squamous Epith Cells None seen (Few) /hpf Urine Bacteria None seen /hpf Urine Casts 11-20 <Autumn JoeyAlexei Palma, SHUTTLE REPAIRER - Last Filed: 05/31/25 20:49> Lab Results 05/31/25 05/31/25 05/31/25 Range/Units 20:36 21:05 21:37 WBC 3.9 L (4.5-10.0) K/mm3 RBC 2.53 L (4.6-6.20) M/mm3 Hgb 8.2 L (14.0-18.0) g/dL Hct 26.1 L (42.0-52.0) % MCV 103.2 H (80-100) fl MCH 32.4 (26-34) pg MCHC 31.4 L (32-36) g/dl RDW 15.5 H (11.5-14.5) % Plt Count 157 (150-375) k/mm3 MPV 9.7 (7.4-10.4) fl Immature Gran % (Auto) 0.5 (0-0.5) % Neut % (Auto) 70.3 (45.5-73.1) % Lymph % (Auto) 10.5 L (18.3-44.2) % [place] % (Auto) 13.0 H (2.6-8.5) % Eos % (Auto) 4.9 H (0-4.4) % Baso % (Auto) 0.8 (0.2-1.2) % Lymph # (Auto) 0.41 L (0.9-3.2) K/mm3 [place] # (Auto) 0.5 (0.1-0.6) K/mm3 Eos # (Auto) 0.2 (0-0.3) K/mm3 Baso # (Auto) 0.0 (0.0-0.1) K/mm3 Abs Immat Gran (auto) 0.02 (0.00-0.031) K/mm3 Absolute Neuts (auto) 2.8 (1.3-6.7) K/mm3 Absolute Nucleated RBC 0.000 (0.0-0.012) K/mm3 Nucleated RBC % 0.0 (0.0-0.2) % PT 19.7 H (11.1-14.7) Seconds INR 1.7 APTT 40.0 H (22.3-36.8) Seconds Sodium 131 L (137-145) mmol/L Potassium 6.4 H* (3.4-5.0) mmol/L Chloride 100 (98-107) mmol/L Carbon Dioxide 22 (22-30) mmol/L Anion Gap 9 (4-12) mmol/L BUN 38 H (9-20) mg/dL Creatinine 2.08 H (0.7-1.3) mg/dL Estim Creat Clear Calc 38 ml/min Estimated GFR 31 L (59 - ) Glucose 179 H (65-110) mg/dL POC Capillary Glucose 172 H (65-105) mg/dl Lactic Acid 2.6 H (0.7-2.0) mmol/L Calcium 9.0 (8.4-10.2) mg/dL Magnesium 2.1 (1.6-2.3) mg/dL Total Bilirubin 1.3 (0.2-1.3) mg/dL AST 44 (17-59) U/L ALT 21 (6-50) U/L Alkaline Phosphatase 293 H (38-126) U/L Troponin I 0.034 (0.000-0.034) ng/mL C-Reactive Protein 2.8 H (<1.0) mg/dL NT-Pro-B Natriuret Pep 3910 H (19.9-100) pg/mL Total Protein 6.9 (6.3-8.2) g/dL Albumin 3.4 L (3.5-5.1) g/dL Urine Color (Yellow) Urine Appearance (Clear) Urine pH (5.0-9.0) Ur Specific [place] (1.001-1.035) Urine Protein (Negative) mg/dL Urine Glucose (UA) (Negative) mg/dL Urine Ketones (Negative) mg/dL Ur Blood (Man) (Negative) Urine Nitrate (Negative) Urine Bilirubin (Negative) Urine Urobilinogen (<2.0) mg/dL Leukocyte Esterase Rfl (Negative) BROOKE/UL Urine RBC (0-2) /hpf Urine WBC (0-3) /hpf Ur Squamous Epith Cells (Few) /hpf Urine Bacteria /hpf Urine Casts 05/31/25 05/31/25 05/31/25 Range/Units 21:42 22:53 23:04 WBC (4.5-10.0) K/mm3 RBC (4.6-6.20) M/mm3 Hgb (14.0-18.0) g/dL Hct (42.0-52.0) % MCV (80-100) fl MCH (26-34) pg MCHC (32-36) g/dl RDW (11.5-14.5) % Plt Count (150-375) k/mm3 MPV (7.4-10.4) fl Immature Gran % (Auto) (0-0.5) % Neut % (Auto) (45.5-73.1) % Lymph % (Auto) (18.3-44.2) % [place] % (Auto) (2.6-8.5) % Eos % (Auto) (0-4.4) % Baso % (Auto) (0.2-1.2) % Lymph # (Auto) (0.9-3.2) K/mm3 [place] # (Auto) (0.1-0.6) K/mm3 Eos # (Auto) (0-0.3) K/mm3 Baso # (Auto) (0.0-0.1) K/mm3 Abs Immat Gran (auto) (0.00-0.031) K/mm3 Absolute Neuts (auto) (1.3-6.7) K/mm3 Absolute Nucleated RBC (0.0-0.012) K/mm3 Nucleated RBC % (0.0-0.2) % PT (11.1-14.7) Seconds INR APTT (22.3-36.8) Seconds Sodium 131 L (137-145) mmol/L Potassium 5.8 H (3.4-5.0) mmol/L Chloride 100 (98-107) mmol/L Carbon Dioxide 24 (22-30) mmol/L Anion Gap 7 (4-12) mmol/L BUN 39 H (9-20) mg/dL Creatinine 2.03 H (0.7-1.3) mg/dL Estim Creat Clear Calc 39 ml/min Estimated GFR 32 L (59 - ) Glucose 119 H (65-110) mg/dL POC Capillary Glucose 196 H 116 H (65-105) mg/dl Lactic Acid (0.7-2.0) mmol/L Calcium 9.0 (8.4-10.2) mg/dL Magnesium (1.6-2.3) mg/dL Total Bilirubin (0.2-1.3) mg/dL AST (17-59) U/L ALT (6-50) U/L Alkaline Phosphatase (38-126) U/L Troponin I (0.000-0.034) ng/mL C-Reactive Protein (<1.0) mg/dL NT-Pro-B Natriuret Pep (19.9-100) pg/mL Total Protein (6.3-8.2) g/dL Albumin (3.5-5.1) g/dL Urine Color Dark yellow (Yellow) Urine Appearance Clear (Clear) Urine pH 6.5 (5.0-9.0) Ur Specific [place] 1.015 (1.001-1.035) Urine Protein 1+ H (Negative) mg/dL Urine Glucose (UA) Negative (Negative) mg/dL Urine Ketones Trace H (Negative) mg/dL Ur Blood (Man) Negative (Negative) Urine Nitrate Negative (Negative) Urine Bilirubin 1+ H (Negative) Urine Urobilinogen 1.0 (<2.0) mg/dL Leukocyte Esterase Rfl Trace H (Negative) BROOKE/UL Urine RBC 0-2 (0-2) /hpf Urine WBC 0-5 (0-3) /hpf Ur Squamous Epith Cells None seen (Few) /hpf Urine Bacteria None seen /hpf Urine Casts 11-20 <Rajesh London MD - Last Filed: 05/31/25 23:57> Critical Care Time Critical Care Time Critical Care Time: Yes <Rajesh London MD - Last Filed: 05/31/25 23:57> Total Critical Care Time: 120 ( Please refer to [facility] for attestation.) <Rajesh London MD - Last Filed: 05/31/25 23:57> Discharge Plan Discharge Clinical Impression: Acute hyperkalemia, Closed fracture of left inferior pubic ramus, Acetabulum fracture, left, AALIYAH (acute kidney injury) <Autumn Camargo NEENA PalmaN - Last Filed: 05/31/25 20:49> Patient Disposition: Still a Patient <Autumn CookAlexei Palma APRN - Last Filed: 05/31/25 20:49> Condition: Improved <Autumn CookAlexei Palma APRN - Last Filed: 05/31/25 20:49> Patient Language: Ivorian <Autumn Camargo NEENA PalmaN - Last Filed: 05/31/25 20:49> Prescriptions: No Action Repatha SureClick 140 mg/mL pen injector 140 mg subcut [id number] Rx Instructions: AND 15 OF MONTH acetaminophen [Pain Reliever (acetaminophen)] 325 mg tablet 650 mg PO Q6H PRN (Reason: Pain (Scale Score 1-3)) Qty: 300 0RF sennosides-docusate sodium [Senokot-S] 8.6-50 mg Tablet 1 tab-cap PO BID Qty: 30 0RF polyethylene glycol 3350 [Miralax] 17 gram Powder In Packet 17 g PO QAM Qty: 30 0RF polysaccharide iron complex [Poly-Iron] 150 mg iron capsule 150 mg PO DAILY Qty: 90 1RF carvedilol 12.5 mg tablet See Rx Instructions .ROUTE .COMPLEX Qty: 200 1RF Dose Instruction: TAKE 1 TABLET BY MOUTH EVERY 12 HOURS Rx Instructions: TAKE 1 TABLET BY MOUTH EVERY 12 HOURS nitroglycerin 0.4 mg tablet, sublingual See Rx Instructions .ROUTE .COMPLEX Qty: 100 0RF Dose Instruction: DISSOLVE 1 TABLET UNDER THE TONGUE EVERY 5 MINUTES NEEDED FOR CHEST PAIN. TO BE TAKEN NO MORE THAN THREE TIMES DAILY Rx Instructions: DISSOLVE 1 TABLET UNDER THE TONGUE EVERY 5 MINUTES NEEDED FOR CHEST PAIN. TO BE TAKEN NO MORE THAN THREE TIMES DAILY insulin aspart U-100 100 unit/mL (3 mL) insulin pen See Rx Instructions .ROUTE .COMPLEX Qty: 15 0RF Dose Instruction: INJECT UP TO 20 UNITS UNDER THE SKIN WITH EACH MEAL PER SLIDING SCALE, 60 UNITS DAILY Rx Instructions: INJECT UP TO 20 UNITS UNDER THE SKIN WITH EACH MEAL PER SLIDING SCALE, 60 UNITS DAILY furosemide 40 mg Tablet 40 mg PO DAILY Qty: 30 0RF melatonin 3 mg Tablet 3 mg PO HS Qty: 0 0RF pantoprazole 40 mg tablet,delayed release (DR/EC) 40 mg PO QAM Qty: 30 0RF ranolazine 500 mg tablet extended release 12 hr 500 mg PO Q12H Qty: 60 0RF insulin glargine [Lantus Solostar U-100 Insulin] 100 unit/mL (3 mL) insulin pen 33 unit subcut QHS Qty: 57 2RF Dose Instruction: INJECT 25 UNITS SUBCUTANEOUS TWICE DAILY Rx Instructions: INJECT 25 UNITS SUBCUTANEOUS TWICE DAILY Eliquis 5 mg Tablet 5 mg PO Q12HR Qty: 60 0RF sodium chloride 1,000 mg tablet,soluble 1,000 mg PO BID Qty: 60 0RF <Autumn Palma APRN - Last Filed: 05/31/25 20:49> Follow-up/Referrals: Randy Borrero MD [Primary Care Provider, Family Practice] <Autumn Palma APRN - Last Filed: 05/31/25 20:49> Time of Disposition: 23:57 <Autumn Palma APRN - Last Filed: 05/31/25 20:49> 23:57 <Rajesh London MD - Last Filed: 05/31/25 23:57>
[2025-05-31 20:51] LABS: Hematocrit 26.1 % (42.0-52.0); Hemoglobin 8.2 g/dL (14.0-18.0); Immature Granulocyte Percent A 0.5 % (0-0.5); Lymphocytes Absolute Auto 0.41 K/mm3 (0.9-3.2); Mean Corpuscular HGB Conc 31.4 g/dl (32-36); Mean Corpuscular Hemoglobin 32.4 pg (26-34); Mean Corpuscular Volume 103.2 fl (80-100); Nucleated Red Blood Cells Absolute Auto 0.000 K/mm3 (0.0-0.012); Nucleated Red Blood Cells Perc 0.0 % (0.0-0.2); Platelet Count Result 157 k/mm3 (150-375); Red Blood Count 2.53 M/mm3 (4.6-6.20); White Blood Count 3.9 K/mm3 (4.5-10.0)
--- NOTE | 2025-05-31 20:55 | ECG_ITS ---
Test Date: 2025-05-31 20:56:45 Measurements Intervals Logan Rate: 44 P: 0 WA: 0 QRS: -55 QRSD: 123 T: 165 QT: 450 QTc: 388 Interpretive Statements JUNCTIONAL ESCAPE RHYTHM WITH VENTRICULAR BIGEMINY LEFT AXIS DEVIATION LEFT BUNDLE BRANCH BLOCK BASELINE ARTIFACT- I, II, AVR, AVL, V1, V4-V6 ABNORMAL ECG Compared to ECG 05/31/2025 20:20:29 No significant changes Electronically Signed On 06-01-2025 06:27:49 CDT by Tra Guillaume D.O.
[2025-05-31 21:01] LABS: Alanine Aminotransferase 21 U/L (6-50); Albumin Level 3.4 g/dL (3.5-5.1); Alkaline Phosphatase 293 U/L (38-126); Anion Gap 9 mmol/L (4-12); Aspartate Amino Transferase 44 U/L (17-59); Bilirubin,Total 1.3 mg/dL (0.2-1.3); Blood Urea Nitrogen 38 mg/dL (9-20); Calcium 9.0 mg/dL (8.4-10.2); Carbon Dioxide 22 mmol/L (22-30); Chloride 100 mmol/L (98-107); Estimated CRCL calculation 38 ml/min; Estimated Glomerular Filt Rate 31; Glucose 179 mg/dL (65-110); Potassium 6.4 mmol/L (3.4-5.0); Sodium 131 mmol/L (137-145); Total Protein 6.9 g/dL (6.3-8.2)
[2025-05-31] MEDS: DEXTROSE 50% 25 GM/50 ML SYRINGE IV PUSH (21:08)
[2025-05-31] MEDS: SODIUM ZIRCONIUM CYCLOSILICATE 10 GM POWD.PACK PO (21:09)
[2025-05-31] MEDS: INSULIN HUMAN REGULAR (*BKC) 100 UNITS/ML 10 UNITS IV PUSH (21:09)
[2025-05-31 21:13] LABS: CRP 2.8 mg/dL (<1.0)
[2025-05-31] MEDS: ATROPINE SULFATE 1 MG/10 ML SYRINGE IV PUSH (21:14)
[2025-05-31] MEDS: CALCIUM GLUC 1,000 MG/NS 50 ML 1,000 MG/50 ML BAG 100 MG IVPB (21:14)
[2025-05-31] MEDS: ALBUTEROL SULFATE NEB 2.5 MG/3 ML INH 10 MG INHALATION (21:20)
[2025-05-31 21:22] LABS: NT Pro B Type Natriuretic Pept 3910 pg/mL (19.9-100); Troponin I 0.034 ng/mL (0.000-0.034)
--- NOTE | 2025-05-31 21:23 | PC.NURSE ---
2030 patient placed on pads and elbashir to bedside to assess patient at this time.
[2025-05-31 21:27] LABS: Magnesium 2.1 mg/dL (1.6-2.3)
--- NOTE | 2025-05-31 21:30 | ECG_ITS ---
Test Date: 2025-05-31 21:34:10 Measurements Intervals [place] Rate: 70 P: -87 NC: 187 QRS: -51 QRSD: 142 T: 128 QT: 432 QTc: 467 Interpretive Statements SINUS RHYTHM LEFT AXIS DEVIATION BORDERLINE AV CONDUCTION DELAY LEFT BUNDLE BRANCH BLOCK BASELINE ARTIFACT- V5 ABNORMAL ECG Compared to ECG 05/31/2025 20:56:45 Junctional rhythm no longer present Ventricular premature complex(es) no longer present Electronically Signed On 06-01-2025 06:38:11 CDT by Tra Guillaume D.O.
[2025-05-31 21:50] LABS: INR 1.7; Prothrombin Time 19.7 Seconds (11.1-14.7)
[2025-05-31 21:51] LABS: Partial Thromboplastin Time 40.0 Seconds (22.3-36.8)
--- OUTSIDE RECORDS SUMMARY | 2025-05-31 22:29 | XMS_ITS | Encounter Summary ---
Author Organization [facility] Healthcare Address [address] [place] [address] Care Team Providers Care Bag Loader Name Role Phone Leonila Chapa MD Primary Care Provider Chinmay ShannonM Unavailable [phone] Zach Ojeda Unavailable [phone] Yahaira Westfall MD Unavailable [phone] Encounter Details Date Type Department Care Team (Late st Contact Info) Description 05/10/2025 Telephone [facility] Medical [facility] Cardiology [address] [place] [address] Juwan Brown MD [address] [facility] [address] [facility] C, [address] [place] [address] Social History Tobacco Use Types Packs/Day Years [...] on file 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 Pt reports weight gain of 13 lbs over the past 3 weeks. Pt requesting to be seen in the office earlier than scheduled.Pt scheduled to see CT tomorrow afternoon. Pt verbalizes understanding and appreciative of return call. Will forward to CT as FYI. * Telephone Encounter - Maura Garcia - 05/12/2025 2:53 PM CDT Pt states he is blowing up like a balloon. He states he has gained 14 pounds in the last 3 weeks and it is all water weight. Requesting call to discuss. Contact: * Telephone Encounter - Jada Montez RN - 05/10/2025 11:24 AM CDT Spoke with pt, he fell and broke his hip on 04/06 and had a partial hip replacement, pt went to [facility] and has been home 3 days now. Pt said he has a little swelling in his legs but it is notbad at the moment. Pt said he hasn't been able to step on the scale since being home but will startweighing himself daily when he is able. Pt said he is able to walk 100ft with his walker before getting a little SOB and that resolves after resting for a few minutes. Pt has been trying to follow a low sodium diet and he is going to start wearing his compression stockings now that he is home. Pt said he has his bed situated now that he is able to elevate his legs when in the bed as well. Pt asked if he needed to be seen. Pt was a no show for his March appt so rescheduled him to see CT in a couple of weeks. Offered pt a sooner appt but he couldn't make it work with transportation. Advised pt to cont to monitor for now and notify us if the conservative measures do not help or if his swelling worsens. Pt appreciated the callback and assistance. * Telephone Encounter - Maura Garcia - 05/10/2025 8:24 AM CDT Pt states he broke his leg on April 06 and his legs have been swelling ever since then. He is currently taking lasix 40 mg daily. Requesting call to discuss. Contact: documented in this encounter Plan of Treatment Not on file documented as of this encounter Visit Diagnoses Not on filedocumented in this encounter Care Teams Bag Loader Relationship Specialty Start Date End Date Leonila Chapa MD [address] [facility] [address] [place] [address] PCP - General Family Medicine 12/29/17 Chinmay Shannon DPM [address] [facility] [place] [place] [address] Referring Physician Foot and Ankle Surg 08/26/22 Zach Ojeda PA [address] [facility] [address] [facility] [place] [address] Orthopedic Surgery 12/06/22 Yahaira Westfall MD [address] [facility] [place] [address] Consulting Physician Internal Medicine 05/20/23 documented as of this encounter
--- OUTSIDE RECORDS SUMMARY | 2025-05-31 22:29 | XMS_ITS ---
Author Organization [facility] [address] Address [address] [place] [address] Care Team Providers Care Broadcast Program Director Name Role Phone Leonila Chapa MD Primary Care Provider Chinmay Shannon DPM Unavailable [phone] Zach Ojeda Unavailable Yahaira Westfall MD Unavailable [phone] Active Problems Problem Noted Date Diagnosed Date Pancytopenia 10/15/2023 Assessment & Plan (10/15/2023 4:30 PM BUTTON BREAKER): Newly noted, unclear etiology. Patient reports symptoms [...] 10/14/2023 Assessment & Plan (10/15/2023 4:23 PM BUTTON BREAKER): Mechanical as per history. Less likely orthostatic (though has history of 2-3 poor intake and AALIYAH), much less likely neurogenic or cardiogenic. HCT, c-spine CT, XR pelvis & L humerus without fracture and without intracranial bleed -Monitor L orbit hematoma, patient denies visual changes or headache. -PT/OT recommending home with HH AALIYAH (acute kidney injury) 10/14/2023 Assessment & Plan (10/15/2023 4:23 PM BUTTON BREAKER): Likely pre-renal in the setting of 2-3 days of N/V, and then poor intake after fall -Monitor off spironolactone and Lasix, instructed to resume 10/17 with slowly improving AALIYAH Nausea 10/14/2023 Assessment & Plan (10/15/2023 4:24 PM BUTTON BREAKER): Nausea/vomiting x2-3 days. Non bloody non bilious. Unclear etiology but more likely viral gastroenteritis. Resolved and patient tolerating diet. Leg swelling 10/14/2023 Assessment & Plan (10/15/2023 4:26 PM BUTTON BREAKER): Bilateral, L>R, chronic. Intermittent gets worse. He [...] 10/14/2023 Assessment & Plan (10/14/2023 11:06 AM BUTTON BREAKER): Outpatient f/u A-fib 10/14/2023 Assessment & Plan (10/14/2023 11:08 AM BUTTON BREAKER): Chronic, continuing the home Eliquis. Based on PT and risk of repeat falls, may need risks/benefits couselling Follow-up examination 10/14/2023 Assessment & Plan (10/15/2023 4:28 PM BUTTON BREAKER): CT 10/14/23 incidentally noted a Serpiginous tubular [...] 10/14/2023 Assessment & Plan (10/15/2023 4:28 PM BUTTON BREAKER): CABG in 2018. BNP around prior baseline, [...] (08/14/2022): Added automatically from request for surgery [id number] Pre-op evaluation 06/26/2022 Demand ischemia of myocardium [...] 12/29/2017 Assessment & Plan (10/15/2023 4:22 PM BUTTON BREAKER): Uses long acting 25u BID + SSI [...] Lifetime Dose Automatic Entry Manual Entr y Fluoro Time 8.2 minutes 0 minutes 8.2 minutes Air kerma at the reference point (Ka,r) 3,533 mGy 8 73 mGy 2,660 mGy DLP 1,281 mGycm 1,281 mGycm 0 mGycm DAP 9,447 Gy-cm2 0 Gy-cm2 9,447 Gy-cm2
--- OUTSIDE RECORDS SUMMARY | 2025-05-31 22:29 | XMS_ITS | Encounter Summary ---
Author Organization [facility] Healthcare Address [address] [place] [address] Care Team Providers Care Secretary Office Clerk Name Role Phone Leonila Chapa MD Primary Care Provider Chinmay ShannonM Unavailable [phone] Zach Ojeda Unavailable [phone] Yahaira Westfall MD Unavailable [phone] Encounter Details Date Type Department Care Team (Late st Contact Info) Description 05/29/2021 Telephone [facility] - Interventional Radiology [address] [place] [address] Cristina Guzman RN Social History Tobacco Use Types Packs/Day Years Used Date Smoking Tobacco: Never Smokeless Tobacco: Never Alcohol Use Standard Drinks/Week Comments Yes 2 (1 standard drink = 0.6 oz pur e alcohol) seldom Sex and Gender Information Value Date Recorded Sex Assigned at Not on file 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 Gender Identity Not on file Sexual Orientation Not on file documented as of this encounter Plan of Treatment Not on file documented as of this encounter Visit Diagnoses Not on filedocumented in this encounter Additional Health Concerns Infection Onset Date Last Indicated Resolved Time COVID: Suspected 03/16/2022 03/16/2022 03/16/2022 5:28 PM CDT COVID: Suspected 10/14/2023 10/14/2023 10/14/2023 3:53 AM SHOT FIREMAN documented as of this encounter Care Teams Secretary Office Clerk Relationship Specialty Start Date End Date Leonila Chapa MD [address] [facility] [address] [place] [address] PCP - General Family Medicine 12/29/17 Chinmay Shannon, SILVA [address] [place] [address] Referring Physician Foot and Ankle Surg 08/26/22 Zach Ojeda PA [address] [facility] [address] [facility] [place] [address] Orthopedic Surgery 12/06/22 Yahaira Westfall MD [address] [facility] [place] [address] Consulting Physician Internal Medicine 05/20/23 documented as of this encounter
--- OUTSIDE RECORDS SUMMARY | 2025-05-31 22:29 | XMS_ITS | Clinical Summary ---
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
--- OUTSIDE RECORDS SUMMARY | 2025-05-31 22:29 | XMS_ITS | Encounter Summary ---
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 Male 7:32 PM LEGAL TRANSCRIBER Gender Identity Not on file Sexual Orientation [...] COVID: Suspected 10/14/2023 10/14/2023 10/14/2023 3:53 AM LEGAL TRANSCRIBER documented as of this encounter Care Teams Guest Relations Receptionist Relationship Specialty Start Date End Date Leonila Chapa MD [address] [facility] [address] [place] [address] PCP - General Family Medicine 12/29/17 Chinmay Shannon DPM [address] [place] [address] Referring Physician Foot and Ankle Surg 08/26/22 Zach Ojeda PA [address] [facility] [address] Orthopedic Surgery 12/06/22 Yahaira Westfall MD [address] [facility] [address] Consulting Physician Internal Medicine 05/20/23 documented as of this encounter
--- OUTSIDE RECORDS SUMMARY | 2025-05-31 22:29 | XMS_ITS | Encounter Summary ---
Author Organization [facility] Healthcare Address [address] [place] [address] Care Team Providers Care Insole Buffer Name Role Phone Leonila Chapa MD Primary Care Provider Chinmay Shannon DPM Unavailable [phone] Zach Ojeda Unavailable [phone] Yahaira Westfall MD Unavailable [phone] Encounter Details Date Type Department Care Team (Late st Contact Info) Description 06/28/2021 Telephone [facility] - Interventional Radiology [address] [place] [address] Cristina Guzman RN Social History Tobacco Use Types Packs/Day Years Used Date Smoking Tobacco: Never Smokeless Tobacco: Never Alcohol Use Standard Drinks/Week Comments Yes 2 (1 standard drink = 0.6 oz pur e alcohol) seldom Sex and Gender Information Value Date Recorded Sex Assigned at Not on file 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 Testing performed by the [facility] Molecular Infectious Disease Laboratory. The 2019-Novel [...] on November 09, 2020. Testing performed by: [facility], [address] [place] [address], [id number] First COVID-19 test? Unknown [facility] Comment:Testing performed by : [facility], [address] [place] [address], [id number] Employeed in healthcare? No [facility] Comment:Testing performed by : [facility], [address] [place] [address], [id number] status? No [facility] Comment:Testing performed by : [facility], [address] [place] [address], [address] Group care resident? No [facility] Comment:Testing performed by : [facility], [address] [place] [address], [address] Hospitalized? No [facility] Comment:Testing performed by : [facility], [address] [place] [address], [address] Is patient in ICU? No [facility] Comment:Testing performed by : [facility], [address] [place] [address], [address] Symptomatic as defined by CDC? No [facility] Comment:Testing performed by : [address], [address] Nasopharyngeal 06/29/2021 2: 00 PM CDT 06/29/2021 4:51 PM CDT [facility]anna [facility] - 06/29/2021 9:35 PM CDT What is the reason for testing?->Screening prior to scheduled procedure or surgery (batch) Nestor Whittington MD LAB MICROBIOLOGY - GENERA L ORDERABLES Final Result Performing Organization Address [facility]/ZIP Co de Phone Number [facility] [address] Department [place] [address] * Protime-INR (06/29/2021 12:12 PM CDT) Pathologist [facility] PT 12.4 9.5 - 13.6 sec [facility] INR 1.1 0.9 - 1.2 [facility] Comment: Interpretive data Oral anticoagulant therapeutic ranges: Venous thromboembolism prophylaxis or treatment: 2.0-3.0 CARDIOLOGY Standard range: 2.0-3.0 High-intensity range: 2.5-3.5 Refer to indication-specific guidelines for appropriate target ranges for prosthetic heart valve replacement. Current interpretive data was last revised on 2019. Blood 06/29/2021 12:1 2 PM CDT 06/29/2021 12:12 PM CDT Nestor Whittington MD LAB BLOOD ORDERABLES Martha l Result Performing Organization Address [facility] Co de Phone Number [facility] [address] Department [place] [address] * (ABNORMAL) CBC with auto differential (06/29/2021 12:12 PM CDT) Pathologist [facility] WBC 3.8 3.8 - 9.9 K/cumm [facility] Hgb 10.8(L) 13.0 - 17.5 g/dL [facility] Hct 34.0(L) 38.9 - 50.3 % [facility] Plt 154 150 - 400 K/cumm [facility] MPV 9.2 9.1 - 12.3 fL [facility] RBC 3.47(L) 4.30 - 5.80 M/cumm [facility] MCV 98.0(H) 81.3 - 96.4 fL [facility] MCH 31.1 27.1 - 33.3 pg [facility] MCHC 31.8(L) 32.3 - 35.7 g/dL [facility] RDW CV 14.2 11.1 - 14.9 % [facility] RDW SD 50.5(H) 35.7 - 48.1 fL [facility] NRBC abs 0.00 0.00 - 0.01 K/cumm [facility] Blood 06/29/2021 12:1 2 PM CDT 06/29/2021 12:12 PM CDT us Nestor Whittington MD LAB BLOOD ORDERABLES Martha l Result [facility] [address] Department [place] [address] * (ABNORMAL) Basic metabolic panel (06/29/2021 12:12 PM CDT) Sodium 142 135 - 145 mmol/L [facility] Potassium, pl 4.2 3.3 - 4.9 mmol/L [facility] Chloride 102 97 - 110 mmol/L [facility] CO2 35(H) 22 - 32 mmol/L [facility] Anion gap 5 2 - 15 mmol/L [facility] BUN 18 8 - 25 mg/dL [facility] Creatinine 1.13 0.80 - 1.30 mg/dL [facility] Glucose 145 70 - 199 mg/dL [facility] Comment: Interpretive Data Fasting glucose >/= 126 [...] 2017. Calcium 9.1 8.5 - 10.3 mg/dL [facility] Blood 06/29/2021 12:1 2 PM CDT 06/29/2021 12:12 PM CDT Nestor Whittington MD LAB BLOOD ORDERABLES Martha l Result [facility] [address] Department [place] [address] documented in this encounter Visit Diagnoses Diagnosis Right renal mass- Primary Unspecified disorder of kidney and ureter Right renal mass Unspecified disorder of kidney and ureter documented in this encounter Additional Health Concerns Infection Onset Date Last Indicated Resolved Time COVID: Suspected 03/16/2022 03/16/2022 03/16/2022 5:28 PM CDT COVID: Suspected 10/14/2023 10/14/2023 10/14/2023 3:53 AM RECEIVING BARN CUSTODIAN documented as of this encounter Care Teams Insole Buffer Relationship Specialty Start Date End Date Leonila Chapa MD [address] [address] PCP - General Family Medicine 12/29/17 Chinmay Shannon DPM [address] [place] [address] Referring Physician Foot and Ankle Surg 08/26/22 Zach Ojeda PA [address] [facility] [place] [address] Orthopedic Surgery 12/06/22 Yahaira Westfall MD [address] [facility] [place] [address] Consulting Physician Internal Medicine 05/20/23 documented as of this encounter
--- OUTSIDE RECORDS SUMMARY | 2025-05-31 22:29 | XMS_ITS | Clinical Summary ---
Author Organization [facility] [address] Address [address] [place] [address] Care Team Providers Care Scrap Sorter Name Role Phone Leonila Chapa MD Primary Care Provider Chinmay Shannon DPM Unavailable [phone] Zach Ojeda Unavailable Yahaira Westfall MD Unavailable [phone] Allergies Active Allergy Reactions Criticality Noted Date Comments Atorvastatin Other (See comments) Low Reaction: Penicillins Anaphylaxis High 03/19/2013 Mkqzzwt-Amy-Rut Reductase Inhibitors Muscle pain Medium 01/20/2018 Atorvastatin [...] (two) times a day as needed Active senna-docusate (PERICOLACE) 8.6-50 mg 1-2 times daily as needed for constipation 60 tablet 1 12/07/19 23 Active HYDROcodone-dannielle taminophen (NORCO) 5-325 mg per tabletIndicatio [...] 12 hr tabletIndicatio ns: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 TAKE 1 TABLET(500 MG) BY MOUTH TWICE DAILY 60 tablet 11 10/26/19 25 Active evolocumab (Repatha SureClick) 140 mg/mL pen injectorIndicat ions:HOLD until follow up CBC Inject 1 mL (140 mg total) under the skin every 14 (fourteen) days 2 mL 11 03/22/20 25 Active apixaban (Eliquis) 5 mg tablet Take 1 tablet (5 mg total) by mouth 2 (two) times a day 60 tablet 04/07/20 25 Active carvediloL (COREG) 12.5 mg tablet Take 1 tablet (12.5 mg total) by mouth every 12 (twelve) hours 02/01/20 25 Active diazePAM (VALIUM) 5 mg tablet Take 1 tablet (5 mg total) by mouth every 6 (six) hours as needed for anxiety Active oxyCODONE-aceta minophen (PERCOCET) 5-325 mg per tabletIndicatio ns:Pain Take 1 tablet by mouth every 4 (four) hours as needed for pain Active sodium chloride 1 gram tablet Take 1 tablet (1 g total) by mouth 3 (three) times a day Active metOLazone (ZAROXOLYN) 2.5 mg tabletIndicatio ns:Chronic diastolic heart failure (HCC) Take 1 tablet (2.5 mg total) by mouth daily Take 30-60 minutes before morning dose of furosemide. Take for 3-4 days then stop. 10 tablet 05/13/20 25 Active carvediloL (COREG) 3.125 mg tablet Take 1 tablet (3.125 mg total) by mouth 2 (two) times a day with meals 3.125mg in the morning on 6.25mg in the evening 025 Discontin ued(Alter kaylie therapy) Saccharomyces boulardii (FLORASTOR) 250 mg capsule Take 1 capsule (250 mg total) by mouth 2 (two) times a day 023 Discontin ued(Other ) metOLazone (ZAROXOLYN) 2.5 mg tablet Take 1 tablet (2.5 mg total) by mouth daily for 10 days 10 tablet 01/29/20 25 025 Discontin ued(Reord er) Active Problems Problem Noted Date Diagnosed Date Pancytopenia 10/15/2023 Assessment & Plan (10/15/2023 4:30 PM AUDIT CLERKS SUPERVISOR): Newly noted, unclear etiology. Patient reports symptoms [...] 10/14/2023 Assessment & Plan (10/15/2023 4:23 PM AUDIT CLERKS SUPERVISOR): Mechanical as per history. Less likely orthostatic (though has history of 2-3 poor intake and AALIYAH), much less likely neurogenic or cardiogenic. HCT, c-spine CT, XR pelvis & L humerus without fracture and without intracranial bleed -Monitor L orbit hematoma, patient denies visual changes or headache. -PT/OT recommending home with HH AALIYAH (acute kidney injury) 10/14/2023 Assessment & Plan (10/15/2023 4:23 PM AUDIT CLERKS SUPERVISOR): Likely pre-renal in the setting of 2-3 days of N/V, and then poor intake after fall -Monitor off spironolactone and Lasix, instructed to resume 10/17 with slowly improving AALIYAH Nausea 10/14/2023 Assessment & Plan (10/15/2023 4:24 PM AUDIT CLERKS SUPERVISOR): Nausea/vomiting x2-3 days. Non bloody non bilious. Unclear etiology but more likely viral gastroenteritis. Resolved and patient tolerating diet. Leg swelling 10/14/2023 Assessment & Plan (10/15/2023 4:26 PM AUDIT CLERKS SUPERVISOR): Bilateral, L>R, chronic. Intermittent gets worse. He [...] 10/14/2023 Assessment & Plan (10/14/2023 11:06 AM AUDIT CLERKS SUPERVISOR): Outpatient f/u A-fib 10/14/2023 Assessment & Plan (10/14/2023 11:08 AM AUDIT CLERKS SUPERVISOR): Chronic, continuing the home Eliquis. Based on PT and risk of repeat falls, may need risks/benefits couselling Follow-up examination 10/14/2023 Assessment & Plan (10/15/2023 4:28 PM AUDIT CLERKS SUPERVISOR): CT 10/14/23 incidentally noted a Serpiginous tubular [...] 10/14/2023 Assessment & Plan (10/15/2023 4:28 PM AUDIT CLERKS SUPERVISOR): CABG in 2017. BNP around prior baseline, [...] (08/14/2022): Added automatically from request for surgery [id number] Pre-op evaluation 06/26/2022 Demand ischemia of myocardium [...] 12/29/2017 Assessment & Plan (10/15/2023 4:22 PM AUDIT CLERKS SUPERVISOR): Uses long acting 25u BID + SSI [...] Encounters Date Type Department Care Team Description 05/24/2025 Telephone [place] [address] [place] [phone] Juwan Brown MD 05/23/2025 Results Follow-Up [place] [address] [place] [phone] Mimi Conde NP Basic metabolic panel 05/20/[address] [address] Juwan Brown MD 05/13/2025 2:00 PM CDT Office Visit [address] [address] Mimi Conde NP Chronic diastolic heart failure (HCC) (Primary Dx); Edema, lower extremity; Paroxysmal atrial fibrillation (HCC); Chronic anticoagulation; 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 05/10/[address] [address] Juwan Brown MD 04/13/2025 Orders Only [facility] Health Information Management [address] [place] [address] Scanning, Provider 04/07/2025 Telephone [place] [address] [place] [phone] Juwan Brown MD 03/22/2025 Telephone [place] [address] [place] [phone] Juwan Brown MD from Last 3 Months [...] Acid indigestion Asthma Type 2 diabetes mellitus Hyperlipidemia GERD (gastroesophageal reflu x disease) Gastritis [...] therapy Anemia Heart disease 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 Chronic kidney disease 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, Infection Left leg several deib es last 50 yrs Pancreas cyst Family History Medical History Relation Name Comments Coronary artery disease Brother 1 Colby Jose nary artery disease; Heart attack Brother 1 Colby Alcohol abuse Brother 2 Irving Heart attack Brother 2 Irving Stroke Brother 2 Irving Alcohol abuse Brother 3 Bill Early Brother 3 Simeon Alcohol abuse Father [...] Bill Father Colby (Age 52) Maternal Grandmother Janelstiel Mother Maira (Age 79) Sister Leigh (Age [...] on file Legal Sex Male 7:32 PM AUDIT CLERKS SUPERVISOR Gender Identity Not on file Sexual Orientation Not on file Obstetrics History Last Filed Vital Signs Vital Sign Reading Time Taken Comments Blood Pressure 110/64 05/13/2025 2:08 PM CDT Pulse 86 05/13/2025 2:08 PM CDT Temperature 36.2 C (97.2 F) 10/15/2023 3:35 PM AUDIT CLERKS SUPERVISOR Respiratory Rate 18 10/15/2023 8:00 AM AUDIT CLERKS SUPERVISOR Oxygen Saturation 97% 05/13/2025 2:08 PM CDT Inhaled Oxygen Concentration - - Weight 133.4 kg (294 lb) 05/13/2025 2:08 PM CDT Height 185.4 cm (6' 1) 05/13/2025 2:08 PM CDT Body Mass Index 38.79 05/13/2025 2:08 PM CDT Plan of Treatment Health Maintenance Due [...] Fall Risk Assessment 10/15/2024 10/15/2023, 08/03/2020, 05/05/2020 Influenza Vaccine (#1) 2025 , 09/16/2020, 12/17/2019 Lipid Panel 12/06/2025 12/06/2024, 0 12/2023, 11/07/2023, Additional history exists eGFR 05/21/2026 05/21/2025, 10/06, 10/14/2023, Additional history exists DTaP/Tdap/Td Vaccine (2 - Td or Tdap) 10/14/2033 10/14/2023 Colon Cancer Screening-CT Colonography Discontinued 09/24/2023 Colon Cancer Screening-Colonoscopy Discontinued 09/24/2023 Colon Cancer Screening-DNA Stool Discontinued 09/24/20 Colon Cancer Screening-FIT Discontinued 09/24/2023 Colon Cancer Screening-FOBT Discontinued 09/24/2023 Colon Cancer Screening-Sigmoidoscopy Discontinued 09/24/2023 Colorectal Cancer Screening Discontinued Medical Devices Implanted Type Area Conveyor Line Battery Charger Device Identifier Shelf Expiration Date Model / Serial / Lot Daig [employer] [id number] Angio-Seal Vip Bondek-Plus 6fr .035in 70cm Hemostatic Latex Free - [id number] Implanted:Qty: 1 on 01/06/2019 by Sanjiv Starkey MD at [facility] Collagen Right: Groin [employer] 08/05/2019 [id number] / / [id number] [employer] Misael Angio-Seal Vip 6fr Closere Device [id number] - [id number] Implanted:Qty: 1 on 08/07/2022 by Sanjiv Starkey MD at [facility] 03/05/2023 [id number] / / [id number] [employer] Cement Bone Simplex Gentamicin High Viscosity 40gm 6195-1-001 - [id number] Implanted:Qty: 1 on 12/03/2022 by Thuan Servin MD at [facility] Left: Knee [employer] 05/05/2024 6195-1-001 / / [id number] [employer] Attune Cruciate Retain Cementless Knee Left 9 Component Femoral [id number] - [id number] Implanted:Qty: 1 on 12/03/2022 by Thuan Servin MD at [facility] Left: Knee [employer] 06/05/2031 [id number] / / [id number] [employer] Attune 41mm Cemented Medialize Knee Dome Patellar Aox Sterile [id number] - [id number] Implanted:Qty: 1 on 12/03/2022 by Thuan Servin MD at [facility] Left: Knee [employer] 03/05/2027 [id number] / / [id number] [employer] Attune 10mm Cruciate Retaining Fix Bearing Knee 9 Insert Tibial [id number] - [id number] Implanted:Qty: 1 on 12/03/2022 by Thuan Servin MD at [facility] Left: Knee [employer] 08/05/2027 [id number] / / [id number] Attune Tibial Base Affixium Fixed Bearing Size 10 Implanted:Qty: 1 on 12/03/2022 by Thuan Servin MD at [facility] Left: Knee [employer] [id number] 09/04/2032 [id number] / N/A / [id number] Procedures Procedure Name Priority Date/Time Associated Diagnosis Comments BASIC METABOLIC PANEL Routine 05/21/2025 7:17 AM CDT Chronic diastolic heart failure (HCC) CARDIOLOGY DOCUMENT SCAN 04/13/2025 LIPID PANEL Routine 12/06/2024 1:28 PM AUDIT CLERKS SUPERVISOR HEMOGLOBIN A1C STAT 10/14/2023 2:19 AM AUDIT CLERKS SUPERVISOR COLONOSCOPY 09/24/2023 2:16 PM AUDIT CLERKS SUPERVISOR from Last 3 Months or Most Recently Relevant to Health Maintenance Results * (ABNORMAL) Basic metabolic panel (05/21/2025 7:17 AM CDT) [facility] Glucose 91 65 - 139 mg/dL [facility] Comment: Non-fasting reference interval BUN 42(H) 7 - 25 mg/dL [facility] Creatinine 1.92(H) 0.70 - 1.28 mg/dL [facility] eGFR 35(L) > OR = 60 mL/min/1.7 3m2 [facility] BUN/creat ratio 22 6 - 22 (calc) [facility] Sodium 135 135 - 146 mmol/L [facility] Potassium, pl 4.5 3.5 - 5.3 mmol/L [facility] Chloride 100 98 - 110 mmol/L [facility] CO2 28 20 - 32 mmol/L [facility] Calcium 9.0 8.6 - 10.3 mg/dL [facility] Blood 05/21/2025 7:17 AM CDT 05/21/2025 7:17 AM CDT Narrative [facility] - 05/22/2025 6:56 AM CDT FASTING:NO FASTING: NO us Mimi Conde NP LAB BLOOD ORDERABLES Martha l Result [facility] [address] [place] [phone] * Cardiology Document Scan (04/13/2025) Anatomical Region Laterality Modality Other us Provider Scanning CV CARDIAC SERVICES PROCEDURES Final Result * (ABNORMAL) Lipid panel (12/06/2024 1:28 PM AUDIT CLERKS SUPERVISOR) SCRIBED Cholesterol, Total 107 30 - 199 mg/dL [facility] SCRIBED Triglycerides 75 <=149 mg/dL [facility] SCRIBED HDL 37(A) >=40 mg/dL [facility] SCRIBED LDL 54 <=129 mg/dL [facility] Scribed Non-HDL Cholesterol 70 NONE mg/dL [facility] SCRIBED Total Cholesterol/HDL Ratio 107 NONE [facility] Blood Historical Provider LAB BLOOD ORDERABLES Edit ed Result - Final Performing Organization Address City/[facility]/ZIP Co de Phone Number [facility] * (ABNORMAL) Hemoglobin A1c (10/14/2023 2:19 AM AUDIT CLERKS SUPERVISOR) Hgb A1C 6.4(H) 4.0 - 5.6 % [facility] Estimated Average Glucose 137 mg/dL [facility] Comment: The ADA recommends reporting an estimated Average Glucose (eAG) with all Hemoglobin A1c results using the equation derived from a study of 507 normal and diabetic adults. Minority populations were underrepresented and children were not included. (Diabetes Care 2020; 43(S1): S66-S76). The eAG is not equivalent to a fasting glucose. Blood 10/14/2023 2:19 AM AUDIT CLERKS SUPERVISOR 10/14/2023 2:28 AM AUDIT CLERKS SUPERVISOR Maribell Basilio MD LAB BLOOD ORDERABLES Final Result Performing Organization Address City/[facility]/ZIP Co de Phone Number [facility] Department [place] [address] * COLONOSCOPY (09/24/2023 2:16 PM AUDIT CLERKS SUPERVISOR) Anatomical Region Laterality Modality Other Narrative Procedure Note Alli Ervin MD - 09/24/2023 2:16 PM [facility] Patient Name: Lopez Guzman Procedure Date: 09/24/2023 2:16 PM Date of : 1945 Admit Type: Outpatient Age: 77 Gender: Male Attending MD: Alli Ervin M.D. Room: [facility] ENDOSCOPY ROOM 9 Note Status: Finalized Procedure: Colonoscopy Indications: Iron deficiency anemia Referring MD: Orlando Barr, F.N.P. Providers: Alli Erivn M.D. Comorbidities See the other procedure note [...] scope was passed under direct vision.The [id number] endoscope was introduced through the anus and advanced to the cecum, identified by appendiceal orifice and ileocecal valve. The colonoscopy was performed without difficulty. The patient tolerated the procedure well. The qualityof the bowel preparation was evaluated using the BBPS (Graff Bowel Preparation Scale) with scores of:Right Colon [...] On: 09/24/2023 2:16 PM Recognized by the [place] [employer] for promoting quality in endoscopy Alli Ervin MD ENDOSCOPY PROCEDURES Final Result from Last 3 Months or Most Recently Relevant to Health Maintenance Insurance MEDICARE [place] MEDICARE [place] [facility] OTHER Address: [address] [place] [address] [facility] MEDICARE MEDICARE MEDICARE Advance Directives For more information, please contact: [phone] Documents on File Type Date Recorded Patient Employee Health Rn Expl anation Power of Sr. Director 08/15/2021 7:19 AM * Full Code (Latest [...] Butler Daughter Health Care Agent Care Teams Scrap Sorter Relationship Specialty Start Date End Date Leonila Chapa MD [address] [facility] [address] [place], [place] [id number] PCP - General Family Medicine 12/29/17 Chinmay Shannon DPM [address] [place] [address] Referring Physician Foot and Ankle Surg 08/26/22 Zach Ojeda PA [address] [place] [address] Orthopedic Surgery 12/06/22 Yahaira Westfall MD [address] [place] [address] Consulting Physician Internal Medicine 05/20/23
--- OUTSIDE RECORDS SUMMARY | 2025-05-31 22:29 | XMS_ITS | Encounter Summary ---
Author Organization [facility] Healthcare Address [address] [place] [address] Care Team Providers Care Electromechanical Engineer Name Role Phone Leonila Chapa MD Primary Care Provider Chinmay Shannon DPM Unavailable [phone] Zach Ojeda Unavailable [phone] Yahaira Westfall MD Unavailable [phone] Encounter Details Date Type Department Care Team (Late st Contact Info) Description 04/13/[address] 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 Gender Identity Not on file Sexual Orientation Not on file documented as of this encounter Plan of Treatment Not on file documented as of this encounter Procedures Procedure Name Priority Date/Time Associated Diagnosis Comments CARDIOLOGY DOCUMENT SCAN 04/13/2025 documented in this encounter Results * Cardiology Document Scan (04/13/2025) Anatomical Region Laterality Modality Other Provider Scanning CV CARDIAC SERVICES PROCEDURES Final Result documented in this encounter Visit Diagnoses Not on filedocumented in this encounter Care Teams Electromechanical Engineer Relationship Specialty Start Date End Date Leonila Chapa MD [address] [phone] PCP - General Family Medicine 12/29/17 Chinmay Shannon DPM [address] [place] [address] Referring Physician Foot and Ankle Surg 08/26/22 Zach Ojeda PA [address] [place] [address] Orthopedic Surgery 12/06/22 Yahaira Westfall MD [address] [place] [address] Consulting Physician Internal Medicine 05/20/23 documented as of this encounter
--- OUTSIDE RECORDS SUMMARY | 2025-05-31 22:29 | XMS_ITS | Encounter Summary ---
Author Organization [facility] Healthcare Address [address] [place] [address] Care Team Providers Care Applied Marine Physics Professor Name Role Phone Leonila Chapa MD Primary Care Provider Chinmay Shannon DPM Unavailable [phone] Zach Ojeda Unavailable [phone] Yahaira Westfall MD Unavailable [phone] Encounter Details Date Type Department Care Team (Late st Contact Info) Description 05/16/2018 Orders Only [facility] Health Information Management [address] [place] [address] Scanning, Provider Social History Tobacco Use Types Packs/Day Years Used Date Smoking Tobacco: Never Smokeless Tobacco: Never Alcohol Use Standard Drinks/Week Comments Yes 2 (1 standard drink = 0.6 oz pur e alcohol) seldom Sex and Gender Information Value Date Recorded Sex Assigned at Not on file Legal Sex Male 7:32 PM ANIMAL 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 Gender Identity Not on file Sexual Orientation Not on file documented as of this encounter Plan of Treatment Not on file documented as of this encounter Procedures Procedure Name Priority Date/Time Associated Diagnosis Comments SCAN - RADIOLOGY/IMAGING 05/16/2018 documented in this encounter Results * SCAN - RADIOLOGY/IMAGING (05/16/2018) Anatomical Region Laterality Modality Other us Provider Scanning Final Result documented in this encounter Visit Diagnoses Not on filedocumented in this encounter Additional Health Concerns Infection Onset Date Last Indicated Resolved Time COVID: Suspected 03/16/2022 03/16/2022 03/16/2022 5:28 PM CDT COVID: Suspected 10/14/2023 10/14/2023 10/14/2023 3:53 AM ANIMAL LABORATORY TECHNICIAN documented as of this encounter Care Teams Applied Marine Physics Professor Relationship Specialty Start Date End Date Leonila Chapa MD [address] [place] [address] [address] [place] [address] PCP - General Family Medicine 12/29/17 Chinmay Shannon DPM [address] [place] [address] Referring Physician Foot and Ankle Surg 08/26/22 Zach Ojeda PA [address] [facility] [facility] [facility] [address] [facility] [place] [address] Orthopedic Surgery 12/06/22 Yahaira Westfall MD [address] [facility] [facility] [place] [address] Consulting Physician Internal Medicine 05/20/23 documented as of this encounter
--- OUTSIDE RECORDS SUMMARY | 2025-05-31 22:29 | XMS_ITS | Encounter Summary ---
Author Organization [facility] Healthcare Address [address] [place] [address] Care Team Providers Care Artificial Cherry Maker Name Role Phone Leonila Chapa MD Primary Care Provider Chinmay ShannonM Unavailable [phone] Zach Ojeda Unavailable [phone] Yahaira Westfall MD Unavailable [phone] Encounter Details Date Type Department Care Team (Late st Contact Info) Description 05/20/2025 Telephone [facility] Cardiology [address] [place] [address] Juwan Brown MD [address] [facility] [address] [place] [address] [facility] [place] [address] Social History Tobacco Use Types Packs/Day Years [...] on file Legal Sex Male 7:32 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 Advised pt to contact the office with any additional questions or concerns. * Telephone Encounter - Breann Huang RN - 05/20/2025 3:33 PM CDT LVM, returned pt call regarding taking the Metolazone. Will forward to [facility] for further suggestions.Please advise. Thank you. * Telephone Encounter - Maura Garcia - 05/20/2025 1:23 PM CDT Pt returning call from nurse. Contact: * Telephone Encounter - Jada Montez RN - 05/20/2025 11:23 AM CDT LM on requesting callback to discuss. * Telephone Encounter - Maura Garcia - 05/20/2025 9:47 AM CDT Pt wants to know if he has to continue taking Metolazone. States he is unsure if it is working or not. He is wearing compression socks. Please advise, thank you. Contact: documented in this encounter Plan of Treatment Not on file documented as of this encounter Visit Diagnoses Not on filedocumented in this encounter Care Teams Artificial Cherry Maker Relationship Specialty Start Date End Date Leonila Chapa MD [address] [place] [address] PCP - General Family Medicine 12/29/17 Chinmay Shannon DPM [address] [place] [address] Referring Physician Foot and Ankle Surg 08/26/22 Zach Ojeda PA [address] [place] [address] Orthopedic Surgery 12/06/22 Yahaira Westfall MD [address] [address] Consulting Physician Internal Medicine 05/20/23 documented as of this encounter
--- OUTSIDE RECORDS SUMMARY | 2025-05-31 22:29 | XMS_ITS | Encounter Summary ---
Author Organization [facility] Healthcare Address [address] [place] [address] Care Team Providers Care Triple Air Valve Tester Name Role Phone Leonila Chapa MD Primary Care Provider Chinmay ShannonM Unavailable [phone] Zach Ojeda Unavailable [phone] Yahaira Westfall MD Unavailable [phone] Encounter Details Date Type Department Care Team (Late st Contact Info) Description 06/29/[address] 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 Gender Identity Not on file Sexual Orientation Not on file documented as of this encounter Plan of Treatment Not on file documented as of this encounter Visit Diagnoses Not on filedocumented in this encounter Additional Health Concerns Infection Onset Date Last Indicated Resolved Time COVID: Suspected 03/16/2022 03/16/2022 03/16/2022 5:28 PM CDT COVID: Suspected 10/14/2023 10/14/2023 10/14/2023 3:53 AM EXTRACTING MACHINE OPERATOR documented as of this encounter Care Teams Triple Air Valve Tester Relationship Specialty Start Date End Date Leonila Chapa MD [address] [facility] [address] [place] [address] PCP - General Family Medicine 12/29/17 Chinmay Shannon, SILVA [address] [place] [address] Referring Physician Foot and Ankle Surg 08/26/22 Zach Ojeda PA [address] [facility] [address] [facility] [place] [address] Orthopedic Surgery 12/06/22 Yahaira Westfall MD [address] [place] [address] Consulting Physician Internal Medicine 05/20/23 documented as of this encounter
--- OUTSIDE RECORDS SUMMARY | 2025-05-31 22:29 | XMS_ITS | Clinical Summary ---
Author Organization [facility] Address [address] [place] [address] Care Team Providers Care Tool Adjuster Name Role Phone Leonila Chapa MD Primary Care Provider + Source Comments [facility],non-owned Affiliates and Associated Physician Practices is amultiple site organization consisting of ambulatory clinics and hospital sitesin [place], [place], [place] and [place]. This disclosure is being madepursuant to the Care Everywhere program and may not contain all information available regarding this patient. Last updated 18.[facility] [employer] Allergies Active Allergy Reactions Criticality Noted Date [...] on file Legal Sex Male 6:09 AM PROPELLER MECHANIC Gender Identity Not on file Sexual [...] patient's age to complete this topic Insurance [facility] Care Teams Tool Adjuster Relationship Specialty Start Date End Date Leonila Chapa MD [address] [facility] [address] [facility] [address] [place] [address] PCP - General Family Medicine 02/11/17
--- OUTSIDE RECORDS SUMMARY | 2025-05-31 22:29 | XMS_ITS | Encounter Summary ---
Author Organization [facility] Address [address] [place] [address] Care Team Providers Care Solutions Analyst Name Role Phone Leonila Chapa MD Primary Care Provider Chinmay ShannonM Unavailable [phone] Zach Ojeda Unavailable [phone] Yahaira Westfall MD Unavailable [phone] Encounter Details Date Type Department Care Team (Late st Contact Info) Description 05/21/2021 Telephone [facility] - Interventional Radiology [address] [place] [address] Cristina Guzman RN Social History Tobacco Use Types Packs/Day Years Used Date Smoking Tobacco: Never Smokeless Tobacco: Never Alcohol Use Standard Drinks/Week Comments Yes 2 (1 standard drink = 0.6 oz pur e alcohol) seldom Sex and Gender Information Value Date Recorded Sex Assigned at Not on file Legal Sex Male 7:32 PM SDE Gender Identity Not on file Sexual Orientation Not on file documented as of this encounter Plan of Treatment Not on file documented as of this encounter Visit Diagnoses Not on filedocumented in this encounter Additional Health Concerns Infection Onset Date Last Indicated Resolved Time COVID: Suspected 03/16/2022 03/16/2022 03/16/2022 5:28 PM CDT COVID: Suspected 10/14/2023 10/14/2023 10/14/2023 3:53 AM SDE documented as of this encounter Care Teams Solutions Analyst Relationship Specialty Start Date End Date Leonila Chapa MD [address] [facility] [address] [place] [address] PCP - General Family Medicine 12/29/17 Chinmay Shannon, SILVA [address] [place] [address] Referring Physician Foot and Ankle Surg 08/26/22 Zach Ojeda PA [address] [facility] [place] [address] Orthopedic Surgery 12/06/22 Yahaira Westfall MD [address] [facility] [place] [address] Consulting Physician Internal Medicine 05/20/23 documented as of this encounter
[2025-05-31] MEDS: ACETAMINOPHEN 500 MG TABLET 1000 MG PO (23:02)
[2025-05-31 23:20] LABS: Anion Gap 7 mmol/L (4-12); Blood Urea Nitrogen 39 mg/dL (9-20); Calcium 9.0 mg/dL (8.4-10.2); Carbon Dioxide 24 mmol/L (22-30); Chloride 100 mmol/L (98-107); Estimated CRCL calculation 39 ml/min; Estimated Glomerular Filt Rate 32; Glucose 119 mg/dL (65-110); Potassium 5.8 mmol/L (3.4-5.0); Sodium 131 mmol/L (137-145)
[2025-05-31 23:28] LABS: Add Urine Microscopic? YES; Appearance Urine Clear (Clear); Glucose Urine UA Negative (Negative); Leukocyte Esterase Ur Trace LEU/UL (Negative); Nitrate Urine Negative (Negative); Specific Grav Ur 1.015 (1.001-1.035)
[2025-05-31] MEDS: CALCIUM GLUCONATE 1,000 MG/10 ML VIAL 1000 MG IV PUSH (23:29)
[2025-06-01] VITALS (17 sets, daily range): BP systolic 112–123; BP diastolic 50–66; PULSE 53–68; RESP 14–20; TEMP 36.3–36.5; O2SAT 97–100; BMI 38.9
--- NOTE | 2025-06-01 00:05 | ECG_ITS ---
Test Date: 2025-06-01 00:05:55 Measurements Intervals [place] Rate: 59 P: -61 CT: 88 QRS: -53 QRSD: 144 T: 138 QT: 473 QTc: 471 Interpretive Statements SINUS BRADYCARDIA WITH FIRST DEGREE AV BLOCK LEFT AXIS DEVIATION LEFT BUNDLE BRANCH BLOCK BASELINE ARTIFACT- I, III, AVR, AVL, AVF, V1, V4, V6 ABNORMAL ECG Compared to ECG 05/31/2025 21:34:10 HEART RATE HAS DECREASED Electronically Signed On 06-01-2025 08:04:11 CDT by Tra Guillaume D.O.
--- NOTE | 2025-06-01 00:24 | PC.NURSE ---
Previous RN and pt reports pt has a pressure ulcer on coccyx.
[2025-06-01] MEDS: SODIUM ZIRCONIUM CYCLOSILICATE 10 GM POWD.PACK PO ×3 (00:48→17:04)
[2025-06-01] MEDS: DEXTROSE 50% 25 GM/50 ML SYRINGE IV PUSH (00:49)
[2025-06-01 00:51] LABS: Troponin I 0.040 ng/mL (0.000-0.034)
[2025-06-01] MEDS: INSULIN HUMAN REGULAR (*BKC) 100 UNITS/ML 10 UNITS IV PUSH (00:52)
--- NOTE | 2025-06-01 02:03 | P.HP_ITS ---
H&P: HPI History of Present Illness Date/Time: 06/01/25 02:03 Chief Complaint: Symptomatic bradycardia with hypotension and hyperkalemia Narrative: This is a 79-year-old male patient admitted to the hospital for abnormal heart rhythm related to hyperkalemia along with AALIYAH on CKD and hypotension. Patient fell getting out of his bed and also has fracture the left acetabulum and inferior pubic ramus. Patient recently had his right hip replaced and was at [facility] for a while before going home on May 06. He stated that he felt something funny in his chest had some shortness of breath the fill out of bed trying to get causing bleeding to his right great and pain to his left hip. He also continued to have chest discomfort and shortness of breath. Patient has a past medical history including recent right hip replacement previous knee replacement three-vessel CABG and cardiac stent placements as well history of CHF prostate cancer renal cell prior NSTEMI obstructive sleep apnea diabetes with neuropathy GERD hypertension hyperlipidemia pulmonary hypertension tricuspid regurgitation. Patient's heart rate was in the low 40s and even into the 30s at times shortly after arrival. EKG showed high-grade AV block. Interventional cardiology was consulted at felt like the EKG was account maintenance representative atrial fibrillation. To me it appeared to be severe bradycardia with bigeminal PVCs. Patient was also hypotensive at that time with BP of 80/40. Cardiology recommended dopamine infusion. At that time metabolic panel results were available and potassium was noted to be elevated at 6.4. ER provider gave IV atropine and initiated treatment for hyperkalemia with 1 g calcium gluconate, 10 units IV insulin 25 g of IV dextrose 10 mg of albuterol nebulized and 10 g of Lokelma oral. Blood pressure and heart rate/rhythm responded to sinus rhythm in the 60s blood pressure of 120 systolic. Patient no longer having chest pain or shortness of breath after rhythm and blood pressure corrected. Repeat metabolic panel showed potassium was still 5.8. Treatment was repeated with Lokelma 10 g, insulin 10 units, Dextrose 25 g and calcium gluconate 1 g. Orders also placed for 1 L of normal saline to be followed by 40 mg of IV furosemide. Repeat labs after this treatment showed potassium down to 5.3. AALIYAH on CKD continues unchanged. Lokelma ordered 10 g BID and Nephrology consulted in the morning. Cardiology will also see the patient. Based on his bradycardic rhythm earlier would anticipate consideration pacemaker placement. Review of Systems Review of Systems: All systems reviewed & are unremarkable except as noted in HPI and below PMFSH Past Medical History Medical History Pulmonary hypertension Tricuspid regurgitation severe Hyponatremia Acute exacerbation of CHF (congestive heart failure) History of renal cell carcinoma History of prostate cancer Skin tear of right lower leg without complication Pre-ulcerative corn or callous Kidney mass Pancreatic mass Nausea & vomiting Anemia Acquired deformity of left thigh Preoperative clearance Foot lesion Cellulitis Elsa tropicalis infection Hypotension Fall Bronchitis Elevated carbon dioxide level Alkaline phosphatase elevation Prostate cancer screening Body mass index (BMI) of 40.1 to 44.9 in adult Degenerative joint disease of knee Renal malignant neoplasm Prostate CA Intracranial atherosclerosis Eczema Hypertensive urgency Non-STEMI (non-ST elevated myocardial infarction) Most recent non-STEMI 12/11/2018 Obstructive sleep apnea Intolerant to CPAP Prostate cancer Renal cell carcinoma Elevated PSA, between 10 and less than 20 ng/ml Vertigo Morbid (severe) obesity due to excess calories Abnormality of gait CAD (coronary artery disease) Multivessel coronary artery disease with stents to the proximal and distal LAD, mid right coronary artery July 2014 with prior catheterization performed [facility] January 2018 had severe diffuse 3 vessel coronary artery disease with multiple stenoses of about 70% and mid to distal LAD between previously placed proximal and distal stents, 50-70% diffuse stenosis of the circumflex with a proximal stenosis of: To and total occlusion of a the marginal branch and diffuse distal right coronary artery disease with occluded RPDA referred for CABG DM neuropathy with neurologic complication GERD (gastroesophageal reflux disease) Dyslipidemia Hypertension Surgical History Surgical History History of right hip hemiarthroplasty Status post open reduction with internal fixation of fracture Of left leg at age 21 Stented coronary artery Hx of tonsillectomy S/P CABG (coronary artery bypass graft) (04/2018) YESENIA to LAD, vein graft to OM, radial graft to RPDA, RCA was diffusely diseased and not a great target for bypass, LAD was also diffusely diseased Family History Family History Father Family history of heart disease in male family member before age 55 Acute myocardial infarction Hypertension Mother Family history of heart disease in male family member before age 55 Acute myocardial infarction Emphysema of lung Asthma Sibling Family history of heart disease in male family member before age 55 Acute myocardial infarction Hypertension Polycystic kidney disease Sibling Family history of heart disease in male family member before age 55 Acute myocardial infarction Breast cancer Sibling Emphysema of lung Cerebrovascular accident Son Acute myocardial infarction Social History Social History Social History: He is and lives alone. He has an adult son and a daughter. 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 He is a lifelong nonsmoker and does not drink alcohol. Code status: Full code (he would not want to be on long-term life support or have a tracheostomy or PEG tube.) Surrogate decision maker: Adjacent (son) Smoking status: Never smoker Second hand tobacco smoke exposure: No Alcohol intake: never Substance use: never Substance use type: does not use Do You Feel Safe in your Home?: Yes Lack of Transportation: No Lack of Food: Sometimes True Current Housing: I Have Housing Concerned About Future Housing: YES Difficulty Paying Gas/Electric Bills: YES Difficulty Paying for Meds: YES Currently Unemployed: No Education: Decline to Answer Difficulty w/ Childcare or Family Care: No Living arrangements: alone Occupation/Education: retired Gender identity (if verbalized by the patient): Male Sexual Orientation (if Verbalized by the Patient): Straight or Heterosexual Spiritual care concerns: No Meds Home Medications and Allergies Home Medications ?Medication ?Instructions ?Recorded ?Confirmed ?Type evolocumab 140 mg/mL subcutaneous 140 mg subcut Q2WEEK S 05/07/21 06/01/25 History pen injector (Aman Ryder) acetaminophen 325 mg tablet (Pain 650 mg (2 x 325 mg) PO Q6H PRN 11/14/23 06/01/25 Rx Reliever (acetaminophen)) Pain (Scale Score 1-3) #300 tabs polysaccharide iron complex 150 mg 150 mg PO DAILY #90 caps 11/22/24 06/01/25 Rx iron capsule (Poly-Iron) carvedilol 12.5 mg tablet See Rx Instructions .Route 0 01/31/25 06/01/25 Rx .COMPLEX #200 tabs nitroglycerin 0.4 mg sublingual See Rx Instructions .R oute 07/03/25 08/27/25 Rx tablet .COMPLEX #100 tabs insulin aspart U-100 100 unit/mL See Rx Instructions . Route 04/11/25 06/01/25 Rx (3 mL) subcutaneous pen .COMPLEX #15 mL sennosides 8.6 mg-docusate sodium 1 tab-cap PO BID #30 tabs 04/20/25 06/01/25 Rx 50 mg tablet (Senokot-S) apixaban 5 mg tablet (Eliquis) 5 mg PO Q12HR #60 tabs 05/06/25 06/01/25 Rx furosemide 40 mg tablet 40 mg PO DAILY #30 tabs 08/10/3006/01/25 Rx insulin glargine 100 unit/mL (3 33 unit (0.33 mL) subc ut QHS #57 mL 05/06/25 06/01/25 Rx mL) subcutaneous pen (Lantus Solostar U-100 Insulin) melatonin 3 mg tablet 3 mg PO HS #0 tabs 05/06/25 06/01/25 Rx pantoprazole 40 mg tablet,delayed 40 mg PO QAM #30 tab s 05/06/25 06/01/25 Rx release ranolazine 500 mg tablet,extended 500 mg PO Q12H #60 t abs 05/06/25 06/01/25 Rx release,12 hr sodium chloride 1,000 mg soluble 1,000 mg PO BID #60 t abs 05/06/25 06/01/25 Rx tablet polyethylene glycol 3350 17 gram 17 g PO QAM PRN const ipation 06/01/25 06/01/25 History oral powder packet (Miralax) Allergies Allergy/AdvReac Type Severity Reaction Status Date / Time Penicillins Allergy Severe Anaphylaxis Verified 05/31/25 20:30 liraglutide Allergy Unknown Hives / Verified 05/31/25 20:30 Red Face Sptwfzi-[facility]-FdR Reductase AdvReac Unknown Muscle Verified 05/31/25 20:30 Inhibitor (Qinpvfs-Viy-Umy Spasms Reductase Inhibitor) Vital Signs Vital Signs - 24 hr 05/31/25 20:24 05/31/25 20:48 05/31/25 20:59 Pulse Rate 52 L 41 L 46 L Respiratory Rate 21 H 21 H Blood Pressure 88/54 L 90/48 L Pulse Oximetry 99 99 Oxygen Delivery Room Air Oxygen Flow Rate Fraction of Inspired Oxygen 05/31/25 21:16 05/31/25 21:25 05/31/25 21:25 Pulse Rate 43 L 67 Respiratory Rate 13 20 Blood Pressure 109/85 Pulse Oximetry 98 99 Oxygen Delivery Nasal Cannula Oxygen Flow Rate 2 Fraction of Inspired Oxygen 28 05/31/25 21:31 05/31/25 21:46 05/31/25 22:01 Pulse Rate 68 71 69 Respiratory Rate 18 15 20 Blood Pressure 124/64 111/63 Pulse Oximetry 100 99 Oxygen Delivery Oxygen Flow Rate Fraction of Inspired Oxygen 05/31/25 22:01 05/31/25 22:35 05/31/25 22:46 Pulse Rate 69 65 68 Respiratory Rate 18 17 17 Blood Pressure 116/60 123/61 125/64 Pulse Oximetry 99 98 100 Oxygen Delivery Oxygen Flow Rate Fraction of Inspired Oxygen 05/31/25 23:01 05/31/25 23:16 06/01/25 00:15 Pulse Rate 60 65 Respiratory Rate 14 19 Blood Pressure 124/59 L 135/55 L Pulse Oximetry 98 100 97 Oxygen Delivery Room Air Oxygen Flow Rate Fraction of Inspired Oxygen 06/01/25 01:15 Pulse Rate 60 Respiratory Rate 20 Blood Pressure 115/66 Pulse Oximetry 100 Oxygen Delivery Oxygen Flow Rate Fraction of Inspired Oxygen Exam Narrative: General: Alert, awake, afebrile, pale, diaphoretic. HEENT: PERRL, no rhinorrhea, no post nasal drip, oropharynx clear, abrasion to bridge of the nose. Neck: Trachea midline, no JVD, no lymphadenopathy. Cardiovascular: Bradycardic with irregular rhythm concern for heart block, no murmurs, rubs or gallops, no peripheral edema. Respiratory: Clear to auscultation bilaterally, no tachypnea, no wheezing, no rhonchi, no rubs, no respiratory distress. Abdomen: Soft, nontender, nondistended, no rebound, no guarding, no peritoneal signs. Musculoskeletal: Left hip/pelvis tender to palpation Skin: No rashes or petechia, no signs of infection. Psychiatric: Alert and oriented, normal behavior and judgment for situation. Neurological: Alert and oriented to person, place, and time. Follows all commands. No focal deficits, speech is clear and fluent. H&P: Results Labs Labs: Short CBC 05/31/25 Range/Units 20:36 WBC 3.9 L (4.5-10.0) K/mm3 Hgb 8.2 L (14.0-18.0) g/dL Hct 26.1 L (42.0-52.0) % Plt Count 157 (150-375) k/mm3 BMP 05/31/25 05/31/25 20:36 23:04 Sodium 131 L 131 L Potassium 6.4 H* 5.8 H Chloride 100 100 Carbon Dioxide 22 24 BUN 38 H 39 H Creatinine 2.08 H 2.03 H Glucose 179 H 119 H Calcium 9.0 9.0 Cardiac Enzymes 05/31/25 06/01/25 Range/Units 20:36 00:08 Troponin I 0.034 0.040 H* (0.000-0.034) ng/mL Liver Function 05/31/25 Range/Units 20:36 Total Bilirubin 1.3 (0.2-1.3) mg/dL AST 44 (17-59) U/L ALT 21 (6-50) U/L Alkaline Phosphatase 293 H (38-126) U/L Albumin 3.4 L (3.5-5.1) g/dL Urine 05/31/25 Range/Units 22:53 Urine Color Dark yellow (Yellow) Urine Appearance Clear (Clear) Urine pH 6.5 (5.0-9.0) Ur Specific Conrad 1.015 (1.001-1.035) Urine Protein 1+ H (Negative) mg/dL Urine Glucose (UA) Negative (Negative) mg/dL Pulse Oximetry SpO2 results: 97-100% Attestation: I personally reviewed and interpreted this pulse oximetry as f ollows: Interpretation: Patient may require oxygen at night due to untreated CPAP Imaging Echocardiogram 04-15-25: Radiologist's impression: Summary 1. Left ventricular chamber dimension is mildly enlarged. 2. Left ventricular systolic function is normal, estimated at 55-60. 3. There is severely increased left ventricular wall thickness. 4. The left ventricular diastolic function is grade II diastolic dysfunction. 5. The apical septum, basal anteroseptal, and mid anteroseptal are hypokinetic. 6. Left atrial chamber dimension is severely enlarged. 7. Right atrial chamber dimension is severely enlarged. 8. There is moderate aortic valve calcification. 9. There is mild aortic valve stenosis. 10. There is mild mitral valve regurgitation. 11. The mitral valve has a calcified annulus. 12. There is moderate to severe tricuspid valve regurgitation. 13. Severe pulmonary hypertension, estimated pulmonary arterial systolic pressure is 72 mmHg. 14. There is mild pulmonic regurgitation. Left Ventricle Left ventricular chamber dimension is mildly enlarged. Left ventricular systolic function is normal, estimated at 55-60. There is severely increased left ventricular wall thickness. The left ventricular diastolic function is grade II diastolic dysfunction. The apical septum, basal anteroseptal, and mid anteroseptal are hypokinetic. All other calderon appear normal. Right Ventricle Right ventricular chamber dimension is normal. Right ventricular systolic function is normal. Left Atria Left atrial chamber dimension is severely enlarged. Right Atria Right atrial chamber dimension is severely enlarged. Atrial Septum Intact interatrial septum visualized by color flow imaging. Aortic Valve The aortic valve is trileaflet. There is mild aortic valve stenosis. There is trace aortic valve regurgitation. There is moderate aortic valve calcification. Pulmonic Valve The pulmonic valve is normal. There is no pulmonic valve stenosis. There is mild pulmonic regurgitation. Mitral Valve The mitral valve has a calcified annulus. There is no mitral valve stenosis. There is mild mitral valve regurgitation. Tricuspid Valve The tricuspid valve leaflets are normal. There is no significant tricuspid valve stenosis. There is moderate to severe tricuspid valve regurgitation. Severe pulmonary hypertension, estimated pulmonary arterial systolic pressure is 72 mmHg. Pericardium/Pleural The pericardium appears normal. Inferior Vena Cava Dilated inferior vena cava with <50% collapse upon inspiration consistent with elevated right atrial pressure, 15 mmHg. Aorta The aortic root size at the sinus of Valsalva is normal. Chest x-ray: Radiologist's impression: EXAMINATION: XR chest 1V portable DATE: 05/31/2025 20:44 INDICATION: Shortness of breath TECHNIQUE: frontal view of the chest was obtained. COMPARISON: Chest radiograph dated 04/13/[address] dated 05/18/2023 FINDINGS: Left paracardial fat pad partially obscures the apex of the heart. No airspace opacities, pulmonary edema, pleural effusion or pneumothorax. Cardiomegaly. Median sternotomy wires, ostial markers and mediastinal surgical clips consistent with prior coronary artery bypass grafting. IMPRESSION: 1. No acute cardiopulmonary disease. Reviewed, dictated and finalized at location A. Assessment and Plan Assessment and plan (1) Acute hyperkalemia: Code(s): E87.5 - Hyperkalemia Status: Acute Assessment and Plan: -Potassium 6.4 with severe symptomatic bradycardia and hypotension -EKG changes improving with first round of treatment including Lokelma, insulin, dextrose, albuterol and calcium gluconate -BP and HR stable after first round of treatment, patient admitted to IMU -Repeat potassium 5.8 prompting a second round of Lokelma, insulin, dextrose, calcium gluconate, IV fluids and IV furosemide -Repeat potassium 5.3 on morning labs, Lokelma ordered twice daily (2) Symptomatic bradycardia: Code(s): R00.1 - Bradycardia, unspecified Status: Acute Assessment and Plan: -Severe bradycardia with bigeminal PVCs on bedside telemetry in ER per my independent interpretation -High grade AV block present, probably third degree. Cardiology consulted. -Improved after IV atropine and treatment for hyperkalemia -Repeat EKG sinus rhythm with left axis deviation and left bundle branch block (3) AALIYAH (acute kidney injury): Code(s): N17.9 - Acute kidney failure, unspecified Status: Acute Assessment and Plan: -Serum Cr 2.08 with baseline around 1.2 (4) Atrial fibrillation: Qualifiers: Atrial fibrillation type: persistent (not longstanding) Qualified Code(s): I48.19 - Other persistent atrial fibrillation Code(s): I48.91 - Unspecified atrial fibrillation Status: Chronic Assessment and Plan: -History of afib, on Eliquis and Coreg (5) Closed fracture of left inferior pubic ramus: Code(s): S32.592A - Other specified fracture of left pubis, initial encounter for closed fracture Status: Acute Assessment and Plan: -Fall from bed prompted ER visit, left hip/pelvis pain prompted X-rays -Orthopedics consulted (6) Acetabulum fracture, left: Code(s): S32.402A - Unspecified fracture of left acetabulum, initial encounter for closed fracture Status: Acute Assessment and Plan: -Fall from bed prompted ER visit, left hip/pelvis pain prompted X-rays -Orthopedics consulted (7) Diabetes mellitus with neuropathy: Qualifiers: Diabetes mellitus exterminator termite insulin use: with exterminator termite use Diabetes mellitus type: type 2 Qualified Code(s): E11.40 - Type 2 diabetes mellitus with diabetic neuropathy, unspecified; Z79.4 - custodial (current) use of insulin Code(s): E11.40 - Type 2 diabetes mellitus with diabetic neuropathy, unspecified Status: Chronic Assessment and Plan: -Renal diet ordered -ACHS fingerstick glucose with high dose SSI ordered (8) Obstructive sleep apnea: Code(s): G47.33 - Obstructive sleep apnea (adult) (pediatric) Status: Chronic Assessment and Plan: -Noted history, does not wear CPAP Quality VTE Prophylaxis VTE prophylaxis: pharmacologic ordered Due to a high probability of clinically significant, life threatening deterioration, the patient required my highest level of preparedness to intervene emergently and I personally spent this critical care time directly and personally managing the patient. This critical care time included obtaining a history; examining the patient; pulse oximetry; ordering and review of studies; arranging urgent treatment with development of a management plan; evaluation of patient's response to treatment; frequent reassessment; and discussions with other providers. It was exclusive of separately billable procedures and treating other patients and teaching time. Please see Assessment and Plan section and the rest of the note for further information on patient assessment and treatment. Critical Care time: 60 minutes Hospitalist MIPS Advance Care Plan I have confirmed that the patient's Advanced Care Plan is present, code status is documented, or surrogate decision maker is listed in patient medical record.: Yes Medication Reconciliation I have utilized all available resources to obtain, update and review the patients current medications (includes all prescriptions, OTC, herbals, cannabis, and nutritional supplements).: Yes
[2025-06-01 02:47] LABS: Hematocrit 25.5 % (42.0-52.0); Hemoglobin 8.2 g/dL (14.0-18.0); Immature Granulocyte Percent A 0.7 % (0-0.5); Lymphocytes Absolute Auto 0.40 K/mm3 (0.9-3.2); Mean Corpuscular HGB Conc 32.2 g/dl (32-36); Mean Corpuscular Hemoglobin 32.9 pg (26-34); Mean Corpuscular Volume 102.4 fl (80-100); Nucleated Red Blood Cells Absolute Auto 0.000 K/mm3 (0.0-0.012); Nucleated Red Blood Cells Perc 0.0 % (0.0-0.2); Platelet Count Result 127 k/mm3 (150-375); Red Blood Count 2.49 M/mm3 (4.6-6.20); White Blood Count 4.2 K/mm3 (4.5-10.0)
[2025-06-01 02:54] LABS: Hemoglobin A1C 6.1 % (<5.7)
[2025-06-01 03:05] LABS: Alanine Aminotransferase 20 U/L (6-50); Albumin Level 3.3 g/dL (3.5-5.1); Alkaline Phosphatase 268 U/L (38-126); Anion Gap 7 mmol/L (4-12); Aspartate Amino Transferase 41 U/L (17-59); Bilirubin,Total 1.4 mg/dL (0.2-1.3); Blood Urea Nitrogen 39 mg/dL (9-20); Calcium 9.1 mg/dL (8.4-10.2); Carbon Dioxide 23 mmol/L (22-30); Chloride 102 mmol/L (98-107); Creatine Kinase 43 U/L (55-170); Estimated CRCL calculation 38 ml/min; Estimated Glomerular Filt Rate 31; Glucose 93 mg/dL (65-110); Magnesium 2.2 mg/dL (1.6-2.3); Potassium 5.3 mmol/L (3.4-5.0); Sodium 132 mmol/L (137-145); Total Protein 6.8 g/dL (6.3-8.2)
[2025-06-01] MEDS: FUROSEMIDE INJ 40 MG/4 ML VIAL IV PUSH (07:20)
--- NOTE | 2025-06-01 08:36 | PM.CNCAR ---
Assessment and Plan Assessment and plan (1) S/P CABG (coronary artery bypass graft): Onset Date: 04/2018 Code(s): Z95.1 - Presence of aortocoronary bypass graft Status: Acute (2) Atrial fibrillation: Qualifiers: Atrial fibrillation type: persistent (not longstanding) Qualified Code(s): I48.19 - Other persistent atrial fibrillation Code(s): I48.91 - Unspecified atrial fibrillation Status: Chronic Plan This is a 79-year-old man with a history of coronary disease and paroxysmal atrial fibrillation. He underwent surgical revascularization in 2018 as well as anticoagulation because of his atrial fib. He was admitted to the hospital after weakness and falling in his home. He was bradycardic on arrival it appears this was secondary to significant hyperkalemia. In this setting implantation of a pacemaker is not indicated. He does have conduction system disease obviously when he is in sinus rhythm he has first-degree AV block as well as a chronic left bundle branch block. Therefore it is not out of the realm of possibility that a pacemaker might be required at some point but at the moment that is not indicated. I would suggest dietary consultation because of his hyperkalemia he needs to be educated regarding potassium rich foods to be avoided. We will follow his telemetry with you while he is in the hospital. Orthopedic surgery consult has been requested. I told the patient that he should not get out of bed until the orthopedist has seen him to determine if he has an acetabular fracture or if anything needs to be done regarding treatment of that. Yonathan Vences MD [facility] History of Present Illness History of Present Illness Consult date/time: 06/01/25 08:36 Reason For Visit: Hyperkalemia, bradycardia Narrative: This is a 79-year-old man who is known to my partner, Dr. Brown with a history of coronary artery disease and atrial fibrillation the. I am seeing him at the request of the hospitalist because of bradycardia that was concerning last night when he came to the hospital after falling at home. He has had a couple of falls recently he was hospitalized recently for right femoral neck fracture after falling while he was pulling his garage door down at home. He underwent surgical treatment with a hip replacement and was rehabbing at [facility] anticipating going home. After he was discharged home he had a fall last night he said he simply slipped out of bed and fell to the floor in his home. He was brought to the hospital for evaluation and he it is suspected he might have a left acetabular fracture although orthopedic consultation for that has yet to occur. We have been asked to see him because he was significantly bradycardic in the emergency department. His electrocardiogram showed atrial fibrillation with left bundle branch block and a very slow ventricular response. When his lab data came back it became obvious he was significantly hyperkalemic with a potassium of 6.4. That was treated urgently and his bradycardia resolved. Interestingly his next couple of EKGs show sinus rhythm with first-degree AV block also with left bundle branch block. His left bundle is chronic. He has no cardiovascular complaints or concerns denies any chest pain shortness of breath orthopnea or PND he does have chronic lower extremity edema. He is known to have diastolic dysfunction. His coronary disease dates back for many years ago with previous PCI and ultimately he was root found to have multivessel coronary disease referred for surgical revascularization in 2018. He was treated at [facility] with a PENDLETON graft to the LAD a saphenous vein graft to the 3rd marginal branch of the circumflex and a radial artery graft to the RPDA. His left ventricular systolic function has always been favorable after his event as stated above he developed a asymptomatic atrial fibrillation in 2021. Since then he has been the coagulated he is currently taking apixaban. He is not taking a potassium supplement he has been eating a lot of potassium rich foods including bananas and potato chips. There was some conversation last night with my partner who was transportation technician as to whether he should have a temporary pacemaker placed because of complete heart block. Once again his ECG did not demonstrate complete heart block with a demonstrated was atrial fibrillation with a slow ventricular response. Review of Systems Constitutional: Constitutional: Reports lethargy Eyes: Eyes: Reports no additional eye complaints ENT: Reports system reviewed and no additional complaints, except as documented Cardiovascular: Cardiovascular: Reports as per HPI and Reports pedal edema Respiratory: Respiratory: Reports no additional respiratory complaints Gastrointestinal: Gastrointestinal: Reports no additional gastrointestinal complaints Musculoskeletal: Musculoskeletal: Reports as per HPI Integumentary/Breasts: Skin/Breast: Reports system reviewed and no additional complaints, except as docu Neurologic: Reports system reviewed and no additional complaints, except as documented Endocrine: Endocrine: Reports no additional endocrine complaints Hematologic/Lymphatic: Hematologic/Lymphatic: Reports no additional hematologic/lymphatic complaints Allergic/Immunologic: Allergic/Immunologic: Reports no additional allergic/immunologic complaints [facility] Past Medical History Medical History Pulmonary hypertension Tricuspid regurgitation severe Hyponatremia Acute exacerbation of CHF (congestive heart failure) History of renal cell carcinoma History of prostate cancer Skin tear of right lower leg without complication Pre-ulcerative corn or callous Kidney mass Pancreatic mass Nausea & vomiting Anemia Acquired deformity of left thigh Preoperative clearance Foot lesion Cellulitis Elsa tropicalis infection Hypotension Fall Bronchitis Elevated carbon dioxide level Alkaline phosphatase elevation Prostate cancer screening Body mass index (BMI) of 40.1 to 44.9 in adult Degenerative joint disease of knee Renal malignant neoplasm Prostate CA Intracranial atherosclerosis Eczema Hypertensive urgency Non-STEMI (non-ST elevated myocardial infarction) Most recent non-STEMI 12/11/2018 Obstructive sleep apnea Intolerant to CPAP Prostate cancer Renal cell carcinoma Elevated PSA, between 10 and less than 20 ng/ml Vertigo Morbid (severe) obesity due to excess calories Abnormality of gait CAD (coronary artery disease) Multivessel coronary artery disease with stents to the proximal and distal LAD, mid right coronary artery July 2014 with prior catheterization performed [facility] January 2018 had severe diffuse 3 vessel coronary artery disease with multiple stenoses of about 70% and mid to distal LAD between previously placed proximal and distal stents, 50-70% diffuse stenosis of the circumflex with a proximal stenosis of: To and total occlusion of a the marginal branch and diffuse distal right coronary artery disease with occluded RPDA referred for CABG DM neuropathy with neurologic complication GERD (gastroesophageal reflux disease) Dyslipidemia Hypertension Surgical History Surgical History History of right hip hemiarthroplasty Status post open reduction with internal fixation of fracture Of left leg at age 21 Stented coronary artery Hx of tonsillectomy S/P CABG (coronary artery bypass graft) (04/2018) YESENIA to LAD, vein graft to OM, radial graft to RPDA, RCA was diffusely diseased and not a great target for bypass, LAD was also diffusely diseased Family History Family History Father Family history of heart disease in male family member before age 55 Acute myocardial infarction Hypertension Mother Family history of heart disease in male family member before age 55 Acute myocardial infarction Emphysema of lung Asthma Sibling Family history of heart disease in male family member before age 55 Acute myocardial infarction Hypertension Polycystic kidney disease Sibling Family history of heart disease in male family member before age 55 Acute myocardial infarction Breast cancer Sibling Emphysema of lung Cerebrovascular accident Son Acute myocardial infarction Social History Social History Social History: He is and lives alone. He has an adult son and a daughter. 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 He is a lifelong nonsmoker and does not drink alcohol. Code status: Full code (he would not want to be on long-term life support or have a tracheostomy or PEG tube.) Surrogate decision maker: Adjacent (son) Smoking status: Never smoker Second hand tobacco smoke exposure: No Alcohol intake: never Substance use: never Substance use type: does not use Do You Feel Safe in your Home?: Yes Lack of Transportation: No Lack of Food: Sometimes True Current Housing: I Have Housing Concerned About Future Housing: YES Difficulty Paying Gas/Electric Bills: YES Difficulty Paying for Meds: YES Currently Unemployed: No Education: Decline to Answer Difficulty w/ Childcare or Family Care: No Living arrangements: alone Occupation/Education: retired Gender identity (if verbalized by the patient): Male Sexual Orientation (if Verbalized by the Patient): Straight or Heterosexual Spiritual care concerns: No Meds Home Medications and Allergies Home Medications ?Medication ?Instructions ?Recorded ?Confirmed ?Type evolocumab 140 mg/mL subcutaneous 140 mg subcut [id number] 05/07/21 06/01/25 History pen injector (Aman Ryder) acetaminophen 325 mg tablet (Pain 650 mg (2 x 325 mg) PO Q6H PRN 11/14/23 06/01/25 Rx Reliever (acetaminophen)) Pain (Scale Score 1-3) #300 tabs polysaccharide iron complex 150 mg 150 mg PO DAILY #90 caps 11/22/24 06/01/25 Rx iron capsule (Poly-Iron) carvedilol 12.5 mg tablet See Rx Instructions .Route 01/31/25 06/01/25 Rx .COMPLEX #200 tabs nitroglycerin 0.4 mg sublingual See Rx Instructions .Route 04/07/25 06/01/25 Rx tablet .COMPLEX #100 tabs insulin aspart U-100 100 unit/mL See Rx Instructions .Route 04/11/25 06/01/25 Rx (3 mL) subcutaneous pen .COMPLEX #15 mL sennosides 8.6 mg-docusate sodium 1 tab-cap PO BID #30 tabs 04/20/25 06/01/25 Rx 50 mg tablet (Senokot-S) apixaban 5 mg tablet (Eliquis) 5 mg PO Q12HR #60 tabs 05/06/25 06/01/25 Rx furosemide 40 mg tablet 40 mg PO DAILY #30 tabs 05/06/25 06/01/25 Rx insulin glargine 100 unit/mL (3 33 unit (0.33 mL) subcut QHS #57 mL 05/06/25 06/01/25 Rx mL) subcutaneous pen (Lantus Solostar U-100 Insulin) melatonin 3 mg tablet 3 mg PO HS #0 tabs 05/06/25 06/01/25 Rx pantoprazole 40 mg tablet,delayed 40 mg PO QAM #30 tabs 05/06/25 06/01/25 Rx release ranolazine 500 mg tablet,extended 500 mg PO Q12H #60 tabs 05/06/25 06/01/25 Rx release,12 hr sodium chloride 1,000 mg soluble 1,000 mg PO BID #60 tabs 05/06/25 06/01/25 Rx tablet polyethylene glycol 3350 17 gram 17 g PO QAM PRN constipation 06/01/25 06/01/25 History oral powder packet (Miralax) Allergies Allergy/AdvReac Type Severity Reaction Status Date / Time Penicillins Allergy Severe Anaphylaxis Verified 05/31/25 20:30 liraglutide Allergy Unknown Hives / Verified 05/31/25 20:30 Red Face [id number] Reductase AdvReac Unknown Muscle Verified 05/31/25 20:30 Inhibitor (Bmoycgw-[id number]-Nwq Spasms Reductase Inhibitor) Vital Signs Vital Signs - 24 hr 05/31/25 20:24 05/31/25 20:48 05/31/25 20:59 Temperature Pulse Rate 52 L 41 L 46 L Respiratory Rate 21 H 21 H Blood Pressure 88/54 L 90/48 L Pulse Oximetry 99 99 Oxygen Delivery Room Air Oxygen Flow Rate Fraction of Inspired Oxygen 05/31/25 21:16 05/31/25 21:25 05/31/25 21:25 Temperature Pulse Rate 43 L 67 Respiratory Rate 13 20 Blood Pressure 109/85 Pulse Oximetry 98 99 Oxygen Delivery Nasal Cannula Oxygen Flow Rate 2 Fraction of Inspired Oxygen 28 05/31/25 21:31 05/31/25 21:46 05/31/25 22:01 Temperature Pulse Rate 68 71 69 Respiratory Rate 18 15 20 Blood Pressure 124/64 111/63 Pulse Oximetry 100 99 Oxygen Delivery Oxygen Flow Rate Fraction of Inspired Oxygen 05/31/25 22:01 05/31/25 22:35 05/31/25 22:46 Temperature Pulse Rate 69 65 68 Respiratory Rate 18 17 17 Blood Pressure 116/60 123/61 125/64 Pulse Oximetry 99 98 100 Oxygen Delivery Oxygen Flow Rate Fraction of Inspired Oxygen 05/31/25 23:01 05/31/25 23:16 06/01/25 00:15 Temperature Pulse Rate 60 65 Respiratory Rate 14 19 Blood Pressure 124/59 L 135/55 L Pulse Oximetry 98 100 97 Oxygen Delivery Room Air Oxygen Flow Rate Fraction of Inspired Oxygen 06/01/25 01:15 06/01/25 03:02 06/01/25 03:54 Temperature 36.4 C L Pulse Rate 60 60 62 Respiratory Rate 20 20 Blood Pressure 115/66 123/50 L Pulse Oximetry 100 100 Oxygen Delivery Oxygen Flow Rate Fraction of Inspired Oxygen 06/01/25 04:00 06/01/25 05:23 06/01/25 08:00 Temperature 36.4 C L Pulse Rate 58 L 58 L 60 Respiratory Rate 20 18 Blood Pressure 122/55 L Pulse Oximetry 100 100 Oxygen Delivery Room Air Oxygen Flow Rate Fraction of Inspired Oxygen 28 Exam Const: General: comfortable and no acute distress Other: Obese man appearing his stated age supine in bed with his nurse attending to him. He has no active complaints. Asking if he can get out of bed and sit in a chair. HENMT: Mouth: Yes moist mucous membranes Eyes: Sclera: sclerae normal Neck: Neck: supple Other: Cannot determine JVD given his thick neck/body habitus Resp: Effort & Inspection: normal respiratory effort Auscultation: clear to auscultation bilaterally Cardio: Rate: regular rate Rhythm: regular rhythm Other: The PMI is not palpable no discernible murmur or gallop GI: GI Palp: Yes Soft to palpation Auscultation: normal bowel sounds Skin: General skin exam: normal color Neuro: Other: Alert and oriented x3 Extrem: Other: Distal pulses are palpable. Moderate chronic appearing lower extremity edema Results Labs and Meds 06/01/25 02:37 06/01/25 02:37 Lab results: Cardiac Enzymes 05/31/25 06/01/25 06/01/25 Range/Units 20:36 00:08 02:37 AST 44 41 (17-59) U/L Troponin I 0.034 0.040 H* (0.000-0.034) ng/mL Coagulation 05/31/25 Range/Units 21:37 PT 19.7 H (11.1-14.7) Seconds APTT 40.0 H (22.3-36.8) Seconds CBC 05/31/25 06/01/25 Range/Units 20:36 02:37 WBC 3.9 L 4.2 L (4.5-10.0) K/mm3 RBC 2.53 L 2.49 L (4.6-6.20) M/mm3 Hgb 8.2 L 8.2 L (14.0-18.0) g/dL Hct 26.1 L 25.5 L (42.0-52.0) % Plt Count 157 127 L (150-375) k/mm3 Lymph # (Auto) 0.41 L 0.40 L (0.9-3.2) K/mm3 Barnes # (Auto) 0.5 0.7 H (0.1-0.6) K/mm3 Eos # (Auto) 0.2 0.1 (0-0.3) K/mm3 Baso # (Auto) 0.0 0.0 (0.0-0.1) K/mm3 Comprehensive Metabolic Panel 05/31/25 05/31/25 06/01/25 Range/Units 20:36 23:04 02:37 Sodium 131 L 131 L 132 L (137-145) mmol/L Potassium 6.4 H* 5.8 H 5.3 H (3.4-5.0) mmol/L Chloride 100 100 102 (98-107) mmol/L Carbon Dioxide 22 24 23 (22-30) mmol/L BUN 38 H 39 H 39 H (9-20) mg/dL Creatinine 2.08 H 2.03 H 2.05 H (0.7-1.3) mg/dL Glucose 179 H 119 H 93 (65-110) mg/dL Calcium 9.0 9.0 9.1 (8.4-10.2) mg/dL AST 44 41 (17-59) U/L ALT 21 20 (6-50) U/L Alkaline Phosphatase 293 H 268 H (38-126) U/L Total Protein 6.9 6.8 (6.3-8.2) g/dL Albumin 3.4 L 3.3 L (3.5-5.1) g/dL Intake and Output 05/31/25 06/01/25 06/01/25 23:59 07:59 15:59 Intake Total 50 150 Balance 50 150 Intake: IV 50 Calcium Gluc 1,000 mg/Ns 50 ml 50 1,000 mg In 50 ml @ 100 mls/hr IVPB ONCE STA Rx#:[id number] Oral 150 Other: Amount of IV Fluids Infused by 200 EMS Patient Weight 06/01/25 23:59 Weight 132.8 kg
[2025-06-01] MEDS: SENNA/DOCUSATE SODIUM TABLET 1 TAB PO ×2 (09:54→17:04)
[2025-06-01] MEDS: APIXABAN 5 MG TABLET PO ×2 (09:54→21:44)
[2025-06-01] MEDS: RANOLAZINE 500 MG TAB.ER.12H PO ×2 (09:55→21:44)
[2025-06-01] MEDS: PANTOPRAZOLE 40 MG TABLET PO (09:55)
[2025-06-01] MEDS: SODIUM CHLORIDE 1 GM TABLET PO ×2 (09:55→17:04)
--- NOTE | 2025-06-01 13:12 | P.CONNP_ITS ---
Assessment and Plan Assessment and plan (1) Hyperkalemia: Code(s): E87.5 - Hyperkalemia Status: Acute Assessment and Plan: * as noted in ER * initially 6.4 associated with bradycardia, EKG changes and low BP * s/p medical management (lokelma/insulin/dextrose/albuterol/calcium...etc) x 2 * on scheduled lokelma at this time * due to AALIYAH +/- other(?) * follow trend of repeat K+ (2) Acute kidney injury: Code(s): N17.9 - Acute kidney failure, unspecified Status: Acute Assessment and Plan: * as noted on admission - creatinine of 2.08mg/dL * etiology not clear -- possibilities include: * bradycardia * relative hypotension * prerenal factors * other(?) * evaluation to date noted: * renal u/s without obstruction * CPK low * urine studies pending * consider trial of IVFs(?) * follow trend of repeat labs and UOP (3) Stage 3 chronic kidney disease: Code(s): N18.30 - Chronic kidney disease, stage 3 unspecified Status: Chronic Assessment and Plan: * baseline creatinine runs around 1.2 - 1.6mg/dl for the last few years * this causes this to fluctuate between CKD stage 3A and 3B * presumably due to diabetes, hypertension, vascular disease (CAD + CHF + hyperlipidemia), MARIANNA, obesity, and age-related disease (4) Symptomatic bradycardia: Code(s): R00.1 - Bradycardia, unspecified Status: Acute Assessment and Plan: * as noted in the ER * likely secondary to significant hyperkalemia * clinical improvement noted with treatment of hyperkalemia and atropine * follow telemetry * Cardiology recommendations noted (5) Atrial fibrillation: Qualifiers: Atrial fibrillation type: persistent (not longstanding) Qualified Code(s): I48.19 - Other persistent atrial fibrillation Code(s): I48.91 - Unspecified atrial fibrillation Status: Chronic Assessment and Plan: * known history * rate control strategy * on anticoagulation (6) Closed fracture of left inferior pubic ramus: Code(s): S32.592A - Other specified fracture of left pubis, initial encounter for closed fracture Status: Acute Assessment and Plan: * as suggested by x-rays in ER * Orthopedic Surgery consulted (7) Acetabulum fracture, left: Code(s): S32.402A - Unspecified fracture of left acetabulum, initial encounter for closed fracture Status: Acute Assessment and Plan: * as suggested by x-rays in ER * Orthopedic Surgery to see (8) Diabetes mellitus with neuropathy: Qualifiers: Diabetes mellitus prison insulin use: with prison use Diabetes mellitus type: type 2 Qualified Code(s): E11.40 - Type 2 diabetes mellitus with diabetic neuropathy, unspecified; 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 Thank you for allowing me to participate in the care of this patient. L History of Present Illness Reason for Consult Consult date: 06/01/25 Reason for consult: acute renal failure (on chronic kidney disease) Chief Complaint Chief complaint: Hyperkalemia, bradycardia History of Present Illness Narrative: The patient is a 79-year-old male with a past medical history as outlined below who presented to [facility] Emergency Room after falling out of bed with subsequent complaints of shortness of breath and a odd sensation in his chest. Apparently, the patient was getting into bed when he slipped off the bed, fell to his knees, and then forward in to his nightstand sustaining injury to his bridge of his nose and forehead. Following this fall/ injury, he reports experiencing some mild shortness of breath and chest discomfort. He apparently also injured his right great toe along with some mild discomfort to his left hip area as well. Given his that his shortness of breath and chest discomfort continued to persist, EMS was called and he was brought to the ER for further assessment. The patient was noted be hypotensive on arrival by EMS and received a 1 L fluid bolus in route to the ER. His blood pressure did improve but he was still relatively hypotensive By the time of his arrival to the ER. He was also noted be bradycardic as well but in no respiratory distress. EKG was done which revealed sinus bradycardia with a heart rate of 48 with a concern for possible third-degree heart block. Given his persistent hypotension and the concern for possible third-degree AV block, it was recommended that he be started on a dopamine gtt. However, by this time, his initial blood work resulted which noted a white blood cell count of 3.9, hemoglobin 8.2, potassium 6.4, creatinine 2.03 mg/dL, lactic acid of 2.6, and a proBNP of 3910. It was felt his hyperkalemia may be the cause of his bradycardia and heart block and he received medical management for this electrolyte abnormality in the form of calcium gluconate, insulin, dextrose, nebulized albuterol, and Lokelma. Furthermore, he received IV atropine as a temporary measure in the hopes this would help his bradycardia until the hyperkalemia medications kicked in. Given these interventions, his blood pressure normalized to the 120 systolic range and his heart rate improved to the 60s range. Repeat EKG demonstrated normal sinus rhythm with a left bundle branch block. The dopamine was never started due to the improvement in his heart rate and blood pressure with the above-mentioned interventions. Subsequent imaging was done which included chest x-ray that demonstrated no acute findings, a hip and pelvis x-ray with possible fractures of the left left acetabulum and inferior pubic ramus, negative head CT, and a facial/cervical spine CT with no acute fractures noted. Given his issues with hyperkalemia, acute kidney injury, and bradycardia, along with suspected left acetabulum and inferior pubic ramus fracture, he was admitted to the hospital for further evaluation and therapy. Since his admission to the hospital, his potassium has continued to fluctuate requiring further medical intervention and his renal function has remained unchanged. Renal consultation was requested due to his acute kidney injury/acute renal failure on top of his baseline chronic kidney disease. From review of his records here at [facility], it would seem that his baseline creatinine runs around 1.2 - 1.6 mg/dL. On discharge earlier this month, his creatinine was 1.29 mg/dL. On admission, as mentioned above, his creatinine was 2.08 mg/dL and has remained relatively unchanged with a creatinine of 2.05 mg/dL by labs done earlier this morning. His potassium level has come down to 5.3 millimoles per L. in spite of his renal dysfunction at this time, he continues to make reasonable urine output. Currently, at the time my evaluation, he appears to be in no acute distress. Review of Systems 2 Review of Systems: As per HPI. [facility] Past Medical History Medical History Pulmonary hypertension Tricuspid regurgitation severe Hyponatremia Acute exacerbation of CHF (congestive heart failure) History of renal cell carcinoma History of prostate cancer Skin tear of right lower leg without complication Pre-ulcerative corn or callous Kidney mass Pancreatic mass Nausea & vomiting Anemia Acquired deformity of left thigh Preoperative clearance Foot lesion Cellulitis Elsa tropicalis infection Hypotension Fall Bronchitis Elevated carbon dioxide level Alkaline phosphatase elevation Prostate cancer screening Body mass index (BMI) of 40.1 to 44.9 in adult Degenerative joint disease of knee Renal malignant neoplasm Prostate CA Intracranial atherosclerosis Eczema Hypertensive urgency Non-STEMI (non-ST elevated myocardial infarction) Most recent non-STEMI 12/11/2018 Obstructive sleep apnea Intolerant to CPAP Prostate cancer Renal cell carcinoma Elevated PSA, between 10 and less than 20 ng/ml Vertigo Morbid (severe) obesity due to excess calories Abnormality of gait CAD (coronary artery disease) Multivessel coronary artery disease with stents to the proximal and distal LAD, mid right coronary artery July 2014 with prior catheterization performed [facility] January 2018 had severe diffuse 3 vessel coronary artery disease with multiple stenoses of about 70% and mid to distal LAD between previously placed proximal and distal stents, 50-70% diffuse stenosis of the circumflex with a proximal stenosis of: To and total occlusion of a the marginal branch and diffuse distal right coronary artery disease with occluded RPDA referred for CABG DM neuropathy with neurologic complication GERD (gastroesophageal reflux disease) Dyslipidemia Hypertension Surgical History Surgical History History of right hip hemiarthroplasty Status post open reduction with internal fixation of fracture Of left leg at age 21 Stented coronary artery Hx of tonsillectomy S/P CABG (coronary artery bypass graft) (04/2018) YESENIA to LAD, vein graft to OM, radial graft to RPDA, RCA was diffusely diseased and not a great target for bypass, LAD was also diffusely diseased Family History Family History Father Family history of heart disease in male family member before age 55 Acute myocardial infarction Hypertension Mother Family history of heart disease in male family member before age 55 Acute myocardial infarction Emphysema of lung Asthma Sibling Family history of heart disease in male family member before age 55 Acute myocardial infarction Hypertension Polycystic kidney disease Sibling Family history of heart disease in male family member before age 55 Acute myocardial infarction Breast cancer Sibling Emphysema of lung Cerebrovascular accident Son Acute myocardial infarction Social History Social History Social History: He is and lives alone. He has an adult son and a daughter. 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 He is a lifelong nonsmoker and does not drink alcohol. Code status: Full code (he would not want to be on long-term life support or have a tracheostomy or PEG tube.) Surrogate decision maker: Adjacent (son) Smoking status: Never smoker Second hand tobacco smoke exposure: No Alcohol intake: never Substance use: never Substance use type: does not use Do You Feel Safe in your Home?: Yes Lack of Transportation: No Lack of Food: Sometimes True Current Housing: I Have Housing Concerned About Future Housing: YES Difficulty Paying Gas/Electric Bills: YES Difficulty Paying for Meds: YES Currently Unemployed: No Education: Decline to Answer Difficulty w/ Childcare or Family Care: No Living arrangements: alone Occupation/Education: retired Gender identity (if verbalized by the patient): Male Sexual Orientation (if Verbalized by the Patient): Straight or Heterosexual Spiritual care concerns: No Meds Home Medications and Allergies Home Medications ?Medication ?Instructions ?Recorded ?Confirmed ?Type evolocumab 140 mg/mL subcutaneous 140 mg subcut Q2WEEK S 05/07/21 06/01/25 History pen injector (Aman Ryder) acetaminophen 325 mg tablet (Pain 650 mg (2 x 325 mg) PO Q6H PRN 11/14/23 06/01/25 Rx Reliever (acetaminophen)) Pain (Scale Score 1-3) #300 tabs polysaccharide iron complex 150 mg 150 mg PO DAILY #90 caps 11/22/24 06/01/25 Rx iron capsule (Poly-Iron) carvedilol 12.5 mg tablet See Rx Instructions .Route 0 01/31/25 06/01/25 Rx .COMPLEX #200 tabs nitroglycerin 0.4 mg sublingual See Rx Instructions .R oute 04/07/25 06/01/25 Rx tablet .COMPLEX #100 tabs insulin aspart U-100 100 unit/mL See Rx Instructions . Route 04/11/25 06/01/25 Rx (3 mL) subcutaneous pen .COMPLEX #15 mL sennosides 8.6 mg-docusate sodium 1 tab-cap PO BID #30 tabs 04/20/25 06/01/25 Rx 50 mg tablet (Senokot-S) apixaban 5 mg tablet (Eliquis) 5 mg PO Q12HR #60 tabs 05/06/25 06/01/25 Rx furosemide 40 mg tablet 40 mg PO DAILY #30 tabs 08/0 10/3006/01/25 Rx insulin glargine 100 unit/mL (3 33 unit (0.33 mL) subc ut QHS #57 mL 05/06/25 06/01/25 Rx mL) subcutaneous pen (Lantus Solostar U-100 Insulin) melatonin 3 mg tablet 3 mg PO HS #0 tabs 05/06/25 06/01/25 Rx pantoprazole 40 mg tablet,delayed 40 mg PO QAM #30 tab s 05/06/25 06/01/25 Rx release ranolazine 500 mg tablet,extended 500 mg PO Q12H #60 t abs 05/06/25 06/01/25 Rx release,12 hr sodium chloride 1,000 mg soluble 1,000 mg PO BID #60 t abs 05/06/25 06/01/25 Rx tablet blood-glucose sensor (FreeStyle #1 ea 06/01/25 Rx [place] 3 Sensor device) polyethylene glycol 3350 17 gram 17 g PO QAM PRN const ipation 06/01/25 06/01/25 History oral powder packet (Miralax) Allergies Allergy/AdvReac Type Severity Reaction Status Date / Time Penicillins Allergy Severe Anaphylaxis Verified 05/31/25 20:30 liraglutide Allergy Unknown Hives / Verified 05/31/25 20:30 Red Face Rilbtdg-UPS-NmN Reductase AdvReac Unknown Muscle Verified 05/31/25 20:30 Inhibitor (Zwsvgkc-Eyi-Bcg Spasms Reductase Inhibitor) Vital Signs Vital Signs Temp Pulse Resp BP Pulse Ox O2 Del Method O2 Flow Rate 06/01/25 12:36 97.6 F 57 L 18 122/53 L 100 06/01/25 12:00 68 Room Air 06/01/25 11:20 97.4 F L 56 L 14 112/60 100 06/01/25 10:00 63 06/01/25 08:00 59 L 06/01/25 08:00 56 L Room Air 06/01/25 08:00 97.5 F L 60 18 122/55 L 100 06/01/25 05:23 58 L 06/01/25 04:00 58 L 20 100 Room Air 06/01/25 03:54 97.5 F L 62 20 123/50 L 100 06/01/25 03:02 60 06/01/25 01:15 60 20 115/66 100 06/01/25 00:15 97 Room Air 05/31/25 23:16 65 19 135/55 L 100 05/31/25 23:01 60 14 124/59 L 98 05/31/25 22:46 68 17 125/64 100 05/31/25 22:35 65 17 123/61 98 05/31/25 22:01 69 18 116/60 99 05/31/25 22:01 69 20 05/31/25 21:46 71 15 111/63 99 05/31/25 21:31 68 18 124/64 100 05/31/25 21:25 67 20 05/31/25 21:25 99 Nasal Cannula 2 05/31/25 21:16 43 L 13 109/85 98 05/31/25 20:59 46 L 05/31/25 20:48 41 L 21 H 90/48 L 99 05/31/25 20:24 52 L 21 H 88/54 L 99 Room Air Exam 2 Narrative: GENERAL APPEARANCE: elderly but well developed well nourished male in no acute distress HEENT: normocephalic, right forehead bruising, normal conjunctiva and sclera, nares patent NECK: no lymphadenopathy, thyromegaly, or JVD MOUTH: normal lips, teeth, and gums CARDIOVASCULAR: RRR, normal S1 and S2, no rub RESPIRATORY: clear anteriorly with a few left bibasilar crackles ABDOMEN: soft, nontender, nondistended, positive bowel sounds present EXTREMITIES: no evidence of cyanosis, clubbing, 1 - 2+ edema NEUROLOGICAL: alert and oriented x 3; CN II - XII intact bilaterally; no focal deficits noted Results Lab Results 06/02/25 03:34 06/02/25 03:34 Lab results: Most recent lab results Calcium 9.1 mg/dL (8.4-10.2) 06/01/25 02:37 Phosphorus 3.8 mg/dL (2.5-4.5) 06/01/25 02:37 Magnesium 2.2 mg/dL (1.6-2.3) 06/01/25 02:37
--- NOTE | 2025-06-01 16:37 | PC.NURSE ---
On 06/01/25, the student, Chapis Mitchell, provided care and completed [facility] documentation on this patient. I have reviewed the student's documentation and agree with the findings.
--- NOTE | 2025-06-01 16:50 | PM.IMPN ---
Progress Note: A&P Assessment and Plan (1) Acute hyperkalemia: Code(s): E87.5 - Hyperkalemia Status: Acute Assessment and Plan: Potassium 6.4 with bradycardia and hypotension EKG on admission showing junctional escape rhythm with ventricular bigeminy, LAD, LBBB. Hyperkalemia was treated appropriately. BP and HR stable after first round of treatment, patient admitted to IMU Repeat potassium 5.8 prompting a second round of treatment Repeat potassium 5.3 this morning. He remains on Lokelma. Nephrology consulted. Follow-up potassium and treat accordingly. Low-potassium renal diet (2) Symptomatic bradycardia: Code(s): R00.1 - Bradycardia, unspecified Status: Acute Assessment and Plan: As above. [place] junctional escape rhythm related to the severe hyperkalemia. Currently sinus bradycardia by telemetry. He has a chronic first-degree AV block and chronic left bundle branch block Cardiology consulted appreciate their input. Monitor on telemetry (3) AALIYAH (acute kidney injury): Code(s): N17.9 - Acute kidney failure, unspecified Status: Acute Assessment and Plan: Baseline creatinine is 1.1-1.2 range earlier this year. Creatinine 2.1 on admission and about the same on repeat. UA shows 1+ protein but no blood or red blood cells. Urine eosinophils are negative. Protein to creatinine ratio is normal. Urine electrolytes are non prerenal. Nephrology consulted and appreciate their input. Monitor urine output, electrolytes and renal function. (4) Atrial fibrillation: Qualifiers: Atrial fibrillation type: persistent (not longstanding) Qualified Code(s): I48.19 - Other persistent atrial fibrillation Code(s): I48.91 - Unspecified atrial fibrillation Status: Chronic Assessment and Plan: Patient has a history of atrial fibrillation. Heart rate stable and noted to be in sinus bradycardia at this time. Continue Eliquis and Coreg. (5) Closed fracture of left inferior pubic ramus: Code(s): S32.592A - Other specified fracture of left pubis, initial encounter for closed fracture Status: Acute Assessment and Plan: Patient had a fall prior to admission. Two-view x-ray of the right hip and pelvis shows possible fractures of the left acetabulum and inferior pubic rami. Will check CT of the pelvis. Given his injury to his right foot, will check right foot x-ray as well. Unclear why he fell. UA is not consistent with UTI. Chest x-ray not consistent with pneumonia. He has a macrocytosis so will check B12, folate. Check TSH. Start PT and OT once his images are complete. 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 The patient's blood glucose was reviewed on 06/01 Glucose remains well controlled. Continue AccuCheks covering with sliding scale. Hypoglycemia protocol available as needed. Continue Lantus and scheduled NovoLog at mealtimes (8) Obstructive sleep apnea: Code(s): G47.33 - Obstructive sleep apnea (adult) (pediatric) Status: Chronic Assessment and Plan: Patient with known obstructive apnea but is unable to tolerate BiPAP. No ABG to evaluate Plan Code status -full DVT prophylaxis -Lashaun Subjective Date/time seen: 06/01/25 16:50 Interval history: 79yo male with CKD, CHF, CAD, DM, MARIANNA and pulm HTN admitted to the hospital for abnormal heart rhythm related to hyperkalemia along with AALIYAH and hypotension. Assuming care. Chart reviewed. Patient feels anxious at the time of this visit. No chest pain or shortness of breath. Was recently hospitalized last month for right hip fracture. He was at rehab and did well. He returned home on May 06. His son has been staying with him but prior to that, patient was living alone. Patient fell out of bed prompting this admission. He denies any lightheadedness with standing or dizziness recently. His Lasix was increased from 40 mg daily to 40 mg b.i.d. 1 week ago. He did hit his face on the table when he fell but no loss of consciousness. No fever, cough or chills. He denies orthopnea or PND prior to admission. He has nocturia 1-2 times a night that is chronic. Exam Narrative: AF 97.6 122/53 57 18 100% ra Gen - NARD HEENT - small ecchymosis right forehead. Dried blood noted bridge of nose. Chest - left bas crackles o/w clear. nml RR CV - RRR S1/S2. Tele showing sinus bradycardia (HR around 55) Abd - Soft, obese, NT Ext - 1-2+ pedal edema, 1+ DP bilat Neuro - Alert and oriented x3. Nonfocal exam. Psych - Nml mood and affect Skin - Warm and dry. chronic venous stasis skin changes bilateral LE.old blood noted between toes to right foot. bruising noted right plantar surface. Objective Data Vital Signs Vital Signs: Vital Signs - 24 hr 05/31/25 20:24 05/31/25 20:48 05/31/25 20:59 Temperature Pulse Rate 52 L 41 L 46 L Respiratory Rate 21 H 21 H Blood Pressure 88/54 L 90/48 L Pulse Oximetry 99 99 Oxygen Delivery Room Air Oxygen Flow Rate Fraction of Inspired Oxygen 05/31/25 21:16 05/31/25 21:25 05/31/25 21:25 Temperature Pulse Rate 43 L 67 Respiratory Rate 13 20 Blood Pressure 109/85 Pulse Oximetry 98 99 Oxygen Delivery Nasal Cannula Oxygen Flow Rate 2 Fraction of Inspired Oxygen 28 05/31/25 21:31 05/31/25 21:46 05/31/25 22:01 Temperature Pulse Rate 68 71 69 Respiratory Rate 18 15 20 Blood Pressure 124/64 111/63 Pulse Oximetry 100 99 Oxygen Delivery Oxygen Flow Rate Fraction of Inspired Oxygen 05/31/25 22:01 05/31/25 22:35 05/31/25 22:46 Temperature Pulse Rate 69 65 68 Respiratory Rate 18 17 17 Blood Pressure 116/60 123/61 125/64 Pulse Oximetry 99 98 100 Oxygen Delivery Oxygen Flow Rate Fraction of Inspired Oxygen 05/31/25 23:01 05/31/25 23:16 06/01/25 00:15 Temperature Pulse Rate 60 65 Respiratory Rate 14 19 Blood Pressure 124/59 L 135/55 L Pulse Oximetry 98 100 97 Oxygen Delivery Room Air Oxygen Flow Rate Fraction of Inspired Oxygen 06/01/25 01:15 06/01/25 03:02 06/01/25 03:54 Temperature 97.5 F L Pulse Rate 60 60 62 Respiratory Rate 20 20 Blood Pressure 115/66 123/50 L Pulse Oximetry 100 100 Oxygen Delivery Oxygen Flow Rate Fraction of Inspired Oxygen 06/01/25 04:00 06/01/25 05:23 06/01/25 08:00 Temperature 97.5 F L Pulse Rate 58 L 58 L 60 Respiratory Rate 20 18 Blood Pressure 122/55 L Pulse Oximetry 100 100 Oxygen Delivery Room Air Oxygen Flow Rate Fraction of Inspired Oxygen 28 06/01/25 08:00 06/01/25 08:00 06/01/25 10:00 Temperature Pulse Rate 56 L 59 L 63 Respiratory Rate Blood Pressure Pulse Oximetry Oxygen Delivery Room Air Oxygen Flow Rate Fraction of Inspired Oxygen 06/01/25 11:20 06/01/25 12:00 06/01/25 12:00 Temperature 97.4 F L Pulse Rate 56 L 68 63 Respiratory Rate 14 Blood Pressure 112/60 Pulse Oximetry 100 Oxygen Delivery Room Air Oxygen Flow Rate Fraction of Inspired Oxygen 06/01/25 15:36 Temperature 97.6 F Pulse Rate 57 L Respiratory Rate 18 Blood Pressure 122/53 L Pulse Oximetry 100 Oxygen Delivery Oxygen Flow Rate Fraction of Inspired Oxygen Intake/Output Intake/Output: Intake & Output 05/29/25 05/30/25 05/31/25 06/01/25 23:59 23:59 23:59 23:59 Intake Total 50 510 Output Total 350 Balance 50 160 Meds/Results Medications: Active Medications Generic Name Dose Route Start Last Admin Trade Name Freq PRN Reason Stop Dose Admin Acetaminophen 650 mg 06/01/25 06:59 Acetaminophen 325 Mg Tablet PO Q6H PRN Pain (Scale Score 1-3) Apixaban 5 mg 06/01/25 09:00 06/01/25 09:54 Apixaban 5 Mg Tablet PO 5 mg Q12HR YUNIOR Administration Dextrose 12.5 gm 06/01/25 01:21 Dextrose 50% 25 Gm/50 Ml Syringe IV PUSH PRN PRN Hypoglycemia Protocol Glucagon 1 mg 06/01/25 01:21 Glucagon For Inj 1 Mg Vial IM PRN PRN Hypoglycemia Protocol Glucose 15 gm 06/01/25 01:21 Glucose Oral Gel 15 Gm Of Glucse In 37.5 Gm Tube PO PRN PRN Hypoglycemia Protocol Dextrose 1,000 mls @ 100 mls/hr 06/01/25 01:21 Dextrose 5% 1,000 Ml IVPB PRN PRN Hypoglycemia Protocol Insulin Aspart 4 - 8 units 06/01/25 08:00 06/01/25 11:53 Insulin Aspart (*Bkc) 100 Units/Ml SUB-Q Not Given [facility] Protocol Insulin Aspart 9 units 06/01/25 08:00 06/01/25 11:53 Insulin Aspart (*Bkc) 100 Units/Ml 0.067 units/kg (9 units) Not Given SUB-Q [facility] Insulin Glargine 33 units 06/01/25 21:00 Insulin Glargine (*Bkc) 100 Units/Ml SUB-Q QHS YUNIOR Melatonin 3 mg 06/01/25 21:00 Melatonin 3 Mg Tablet PO HS YUNIOR Miscellaneous Information 0 each 06/01/25 00:01 Clarify Lantus Dose- Order Comment States Different Dose XX 07/01/25 00:00 CLARIFY YUNIOR Nitroglycerin 0.4 mg 06/01/25 07:00 Nitroglycerin Sl 0.4 Mg Tablet SUBLINGUAL Q5MIN PRN Chest Pain Pantoprazole Sodium 40 mg 06/01/25 09:00 06/01/25 09:55 Pantoprazole 40 Mg Tablet PO 40 mg QAM YUNIOR Administration Polyethylene Glycol 17 gm 06/01/25 06:59 Polyethylene Glycol 3350 17 Gm Powd.Pack PO QAM PRN Constipation Polysaccharide Iron Complex 150 mg 06/01/25 09:00 06/01/25 09:54 Polysaccharide Iron Complex 150 Mg Capsule PO 150 mg DAILY YUNIOR Administration Ranolazine 500 mg 06/01/25 09:00 06/01/25 09:55 Ranolazine 500 Mg Tab.Er.12h PO 500 mg Q12HR YUNIOR Administration Senna/Docusate Sodium 1 tab 06/01/25 09:00 06/01/25 09:54 Senna/Docusate Sodium Tablet PO 1 tab BID YUNIOR Administration Sodium Chloride 1 gm 06/01/25 09:00 06/01/25 09:55 Sodium Chloride 1 Gm Tablet PO 1 gm BID YUNIOR Administration Sodium Zirconium Cyclosilicate 10 gm 06/01/25 10:00 06/01/25 09:55 Sodium Zirconium Cyclosilicate 10 Gm Powd.Pack PO 10 gm BID@1000,1800 YUNIOR Administration Radiology Results: ITS Impressions Chest X-Ray 05/31/25 20:59 IMPRESSION: 1. No acute cardiopulmonary disease. Hip/Pelvis X-Ray 06/01/25 06:51 Impression: 1: Possible fractures of the left acetabulum and inferior pubic ramus. Recommend correlation with CT. Head/Cervical Spine/Facial Bones CT 06/01/25 07:18 IMPRESSION: 1. No acute fracture of the facial bones or cervical spine. Head CT 06/01/25 07:22 IMPRESSION: 1. No acute intracranial abnormality. 2: Mild sinus disease. Renal Ultrasound 06/01/25 10:52 Impression: 1. Simple appearing right renal cyst. Labs Labs: Laboratory Results - last 24 hr 05/31/25 05/31/25 05/31/25 20:36 21:05 21:37 WBC 3.9 L RBC 2.53 L Hgb 8.2 L Hct 26.1 L MCV 103.2 H MCH 32.4 MCHC 31.4 L RDW 15.5 H Plt Count 157 MPV 9.7 Immature Gran % (Auto) 0.5 Neut % (Auto) 70.3 Lymph % (Auto) 10.5 L [place] % (Auto) 13.0 H Eos % (Auto) 4.9 H Baso % (Auto) 0.8 Lymph # (Auto) 0.41 L [place] # (Auto) 0.5 Eos # (Auto) 0.2 Baso # (Auto) 0.0 Abs Immat Gran (auto) 0.02 Absolute Neuts (auto) 2.8 Absolute Nucleated RBC 0.000 Nucleated RBC % 0.0 PT 19.7 H INR 1.7 APTT 40.0 H Sodium 131 L Potassium 6.4 H* Chloride 100 Carbon Dioxide 22 Anion Gap 9 BUN 38 H Creatinine 2.08 H Estim Creat Clear Calc 38 Estimated GFR 31 L Glucose 179 H POC Capillary Glucose 172 H Hemoglobin A1c Lactic Acid 2.6 H Calcium 9.0 Phosphorus Magnesium 2.1 Total Bilirubin 1.3 AST 44 ALT 21 Alkaline Phosphatase 293 H Total Creatine Kinase Troponin I 0.034 C-Reactive Protein 2.8 H NT-Pro-B Natriuret Pep 3910 H Total Protein 6.9 Albumin 3.4 L Urine Color Urine Appearance Urine pH Ur Specific [place] Urine Protein Urine Glucose (UA) Urine Ketones Ur Blood (Man) Urine Nitrate Urine Bilirubin Urine Urobilinogen Leukocyte Esterase Rfl Urine RBC Urine WBC Ur Squamous Epith Cells Urine Bacteria Urine Casts 05/31/25 05/31/25 05/31/25 21:42 22:53 23:04 WBC RBC Hgb Hct MCV MCH MCHC RDW Plt Count MPV Immature Gran % (Auto) Neut % (Auto) Lymph % (Auto) [place] % (Auto) Eos % (Auto) Baso % (Auto) Lymph # (Auto) [place] # (Auto) Eos # (Auto) Baso # (Auto) Abs Immat Gran (auto) Absolute Neuts (auto) Absolute Nucleated RBC Nucleated RBC % PT INR APTT Sodium 131 L Potassium 5.8 H Chloride 100 Carbon Dioxide 24 Anion Gap 7 BUN 39 H Creatinine 2.03 H Estim Creat Clear Calc 39 Estimated GFR 32 L Glucose 119 H POC Capillary Glucose 196 H 116 H Hemoglobin A1c Lactic Acid Calcium 9.0 Phosphorus Magnesium Total Bilirubin AST ALT Alkaline Phosphatase Total Creatine Kinase Troponin I C-Reactive Protein NT-Pro-B Natriuret Pep Total Protein Albumin Urine Color Dark yellow Urine Appearance Clear Urine pH 6.5 Ur Specific [place] 1.015 Urine Protein 1+ H Urine Glucose (UA) Negative Urine Ketones Trace H Ur Blood (Man) Negative Urine Nitrate Negative Urine Bilirubin 1+ H Urine Urobilinogen 1.0 Leukocyte Esterase Rfl Trace H Urine RBC 0-2 Urine WBC 0-5 Ur Squamous Epith Cells None seen Urine Bacteria None seen Urine Casts 11-06/01/25 06/01/25 06/01/25 00:08 00:50 02:37 WBC 4.2 L RBC 2.49 L Hgb 8.2 L Hct 25.5 L MCV 102.4 H MCH 32.9 MCHC 32.2 RDW 15.6 H Plt Count 127 L MPV 9.4 Immature Gran % (Auto) 0.7 H Neut % (Auto) 70.3 Lymph % (Auto) 9.6 L [place] % (Auto) 15.6 H Eos % (Auto) 3.3 Baso % (Auto) 0.5 Lymph # (Auto) 0.40 L [place] # (Auto) 0.7 H Eos # (Auto) 0.1 Baso # (Auto) 0.0 Abs Immat Gran (auto) 0.03 Absolute Neuts (auto) 2.9 Absolute Nucleated RBC 0.000 Nucleated RBC % 0.0 PT INR APTT Sodium 132 L Potassium 5.3 H Chloride 102 Carbon Dioxide 23 Anion Gap 7 BUN 39 H Creatinine 2.05 H Estim Creat Clear Calc 38 Estimated GFR 31 L Glucose 93 POC Capillary Glucose 130 H Hemoglobin A1c 6.1 H Lactic Acid 2.1 H Calcium 9.1 Phosphorus 3.8 Magnesium 2.2 Total Bilirubin 1.4 H AST 41 ALT 20 Alkaline Phosphatase 268 H Total Creatine Kinase 43 L Troponin I 0.040 H* C-Reactive Protein NT-Pro-B Natriuret Pep Total Protein 6.8 Albumin 3.3 L Urine Color Urine Appearance Urine pH Ur Specific [place] Urine Protein Urine Glucose (UA) Urine Ketones Ur Blood (Man) Urine Nitrate Urine Bilirubin Urine Urobilinogen Leukocyte Esterase Rfl Urine RBC Urine WBC Ur Squamous Epith Cells Urine Bacteria Urine Casts 06/01/25 06/01/25 06/01/25 06:57 11:31 16:04 WBC RBC Hgb Hct MCV MCH MCHC RDW Plt Count MPV Immature Gran % (Auto) Neut % (Auto) Lymph % (Auto) [place] % (Auto) Eos % (Auto) Baso % (Auto) Lymph # (Auto) [place] # (Auto) Eos # (Auto) Baso # (Auto) Abs Immat Gran (auto) Absolute Neuts (auto) Absolute Nucleated RBC Nucleated RBC % PT INR APTT Sodium Potassium Chloride Carbon Dioxide Anion Gap BUN Creatinine Estim Creat Clear Calc Estimated GFR Glucose POC Capillary Glucose 133 H 162 H 172 H Hemoglobin A1c Lactic Acid Calcium Phosphorus Magnesium Total Bilirubin AST ALT Alkaline Phosphatase Total Creatine Kinase Troponin I C-Reactive Protein NT-Pro-B Natriuret Pep Total Protein Albumin Urine Color Urine Appearance Urine pH Ur Specific [place] Urine Protein Urine Glucose (UA) Urine Ketones Ur Blood (Man) Urine Nitrate Urine Bilirubin Urine Urobilinogen Leukocyte Esterase Rfl Urine RBC Urine WBC Ur Squamous Epith Cells Urine Bacteria Urine Casts
[2025-06-01] MEDS: ACETAMINOPHEN 325 MG TABLET 650 MG PO (17:09)
[2025-06-01 17:38] LABS: Potassium 5.5 mmol/L (3.4-5.0)
[2025-06-01 17:50] LABS: Urea Random Urine 437 MG/DL
[2025-06-01 18:06] LABS: Total Protein Urine Random < 5 mg/dL; Ur Ttl Prot Creatinine Ratio < 0.08 mg/mg (0-0.20)
[2025-06-01 18:22] LABS: Urine Eos QC 2nd Tech Confirmed
[2025-06-01 18:53] LABS: Vitamin B12 986.0 pg/mL (239-931)
--- NOTE | 2025-06-01 20:46 | P.CONOP_ITS ---
Assessment and Plan Assessment and plan (1) Acetabular fracture: Code(s): S32.409A - Unspecified fracture of unspecified acetabulum, initial encounter for closed fracture Status: Acute Assessment and Plan: 79 yr old male with Left Hip Acetabular fracture - stable, minimally symptomatic - rec WBAT with Physical Therapy - no CT Scan necessary at this point History of Present Illness HPI Consult date: 06/01/25 Chief complaint: Hyperkalemia, bradycardia Narrative: 79 yr old male with recent fall. s/p Right Hip Jp 04/2025. No pain with walking. - xrays of Pelvis show an acetabular fracture Left Side. (some callous formation) [facility] Past Medical History Medical History Pulmonary hypertension Tricuspid regurgitation severe Hyponatremia Acute exacerbation of CHF (congestive heart failure) History of renal cell carcinoma History of prostate cancer Skin tear of right lower leg without complication Pre-ulcerative corn or callous Kidney mass Pancreatic mass Nausea & vomiting Anemia Acquired deformity of left thigh Preoperative clearance Foot lesion Cellulitis Elsa tropicalis infection Hypotension Fall Bronchitis Elevated carbon dioxide level Alkaline phosphatase elevation Prostate cancer screening Body mass index (BMI) of 40.1 to 44.9 in adult Degenerative joint disease of knee Renal malignant neoplasm Prostate CA Intracranial atherosclerosis Eczema Hypertensive urgency Non-STEMI (non-ST elevated myocardial infarction) Most recent non-STEMI 12/11/2018 Obstructive sleep apnea Intolerant to CPAP Prostate cancer Renal cell carcinoma Elevated PSA, between 10 and less than 20 ng/ml Vertigo Morbid (severe) obesity due to excess calories Abnormality of gait CAD (coronary artery disease) Multivessel coronary artery disease with stents to the proximal and distal LAD, mid right coronary artery July 2014 with prior catheterization performed [facility] January 2018 had severe diffuse 3 vessel coronary artery disease with multiple stenoses of about 70% and mid to distal LAD between previously placed proximal and distal stents, 50-70% diffuse stenosis of the circumflex with a proximal stenosis of: To and total occlusion of a the marginal branch and diffuse distal right coronary artery disease with occluded RPDA referred for CABG DM neuropathy with neurologic complication GERD (gastroesophageal reflux disease) Dyslipidemia Hypertension Surgical History Surgical History History of right hip hemiarthroplasty Status post open reduction with internal fixation of fracture Of left leg at age 21 Stented coronary artery Hx of tonsillectomy S/P CABG (coronary artery bypass graft) (04/2018) YESENIA to LAD, vein graft to OM, radial graft to RPDA, RCA was diffusely diseased and not a great target for bypass, LAD was also diffusely diseased Family History Family History Father Family history of heart disease in male family member before age 55 Acute myocardial infarction Hypertension Mother Family history of heart disease in male family member before age 55 Acute myocardial infarction Emphysema of lung Asthma Sibling Family history of heart disease in male family member before age 55 Acute myocardial infarction Hypertension Polycystic kidney disease Sibling Family history of heart disease in male family member before age 55 Acute myocardial infarction Breast cancer Sibling Emphysema of lung Cerebrovascular accident Son Acute myocardial infarction Social History Social History Social History: He is and lives alone. He has an adult son and a daughter. 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 He is a lifelong nonsmoker and does not drink alcohol. Code status: Full code (he would not want to be on long-term life support or have a tracheostomy or PEG tube.) Surrogate decision maker: Adjacent (son) Smoking status: Never smoker Second hand tobacco smoke exposure: No Alcohol intake: never Substance use: never Substance use type: does not use Do You Feel Safe in your Home?: Yes Lack of Transportation: No Lack of Food: Sometimes True Current Housing: I Have Housing Concerned About Future Housing: YES Difficulty Paying Gas/Electric Bills: YES Difficulty Paying for Meds: YES Currently Unemployed: No Education: Decline to Answer Difficulty w/ Childcare or Family Care: No Living arrangements: alone Occupation/Education: retired Gender identity (if verbalized by the patient): Male Sexual Orientation (if Verbalized by the Patient): Straight or Heterosexual Spiritual care concerns: No Meds Home Medications and Allergies Home Medications ?Medication ?Instructions ?Recorded ?Confirmed ?Type evolocumab 140 mg/mL subcutaneous 140 mg subcut Q2WEEK S 05/07/21 06/01/25 History pen injector (Aman Ryder) acetaminophen 325 mg tablet (Pain 650 mg (2 x 325 mg) PO Q6H PRN 11/14/23 06/01/25 Rx Reliever (acetaminophen)) Pain (Scale Score 1-3) #300 tabs polysaccharide iron complex 150 mg 150 mg PO DAILY #90 caps 11/22/24 06/01/25 Rx iron capsule (Poly-Iron) carvedilol 12.5 mg tablet See Rx Instructions .Route 0 01/31/25 06/01/25 Rx .COMPLEX #200 tabs nitroglycerin 0.4 mg sublingual See Rx Instructions .R oute 04/07/25 06/01/25 Rx tablet .COMPLEX #100 tabs insulin aspart U-100 100 unit/mL See Rx Instructions . Route 04/11/25 06/01/25 Rx (3 mL) subcutaneous pen .COMPLEX #15 mL sennosides 8.6 mg-docusate sodium 1 tab-cap PO BID #30 tabs 04/20/25 06/01/25 Rx 50 mg tablet (Senokot-S) apixaban 5 mg tablet (Eliquis) 5 mg PO Q12HR #60 tabs 05/06/25 06/01/25 Rx furosemide 40 mg tablet 40 mg PO DAILY #30 tabs 08/0 10/3006/01/25 Rx insulin glargine 100 unit/mL (3 33 unit (0.33 mL) subc ut QHS #57 mL 05/06/25 06/01/25 Rx mL) subcutaneous pen (Lantus Solostar U-100 Insulin) melatonin 3 mg tablet 3 mg PO HS #0 tabs 05/06/25 06/01/25 Rx pantoprazole 40 mg tablet,delayed 40 mg PO QAM #30 tab s 05/06/25 06/01/25 Rx release ranolazine 500 mg tablet,extended 500 mg PO Q12H #60 t abs 05/06/25 06/01/25 Rx release,12 hr sodium chloride 1,000 mg soluble 1,000 mg PO BID #60 t abs 05/06/25 06/01/25 Rx tablet blood-glucose sensor (FreeStyle #1 ea 06/01/25 Rx [place] 3 Sensor device) polyethylene glycol 3350 17 gram 17 g PO QAM PRN const ipation 06/01/25 06/01/25 History oral powder packet (Miralax) Allergies Allergy/AdvReac Type Severity Reaction Status Date / Time Penicillins Allergy Severe Anaphylaxis Verified 05/31/25 20:30 liraglutide Allergy Unknown Hives / Verified 05/31/25 20:30 Red Face [id number] Reductase AdvReac Unknown Muscle Verified 05/31/25 20:30 Inhibitor (Ovauijz-Vgu-Aix Spasms Reductase Inhibitor) Vital Signs Vital Signs - 24 hr 05/31/25 20:48 05/31/25 20:59 05/31/25 21:16 Temperature Pulse Rate 41 L 46 L 43 L Respiratory Rate 21 H 13 Blood Pressure 90/48 L 109/85 Pulse Oximetry 99 98 Oxygen Delivery Oxygen Flow Rate Fraction of Inspired Oxygen 05/31/25 21:25 05/31/25 21:25 05/31/25 21:31 Temperature Pulse Rate 67 68 Respiratory Rate 20 18 Blood Pressure 124/64 Pulse Oximetry 99 100 Oxygen Delivery Nasal Cannula Oxygen Flow Rate 2 Fraction of Inspired Oxygen 28 05/31/25 21:46 05/31/25 22:01 05/31/25 22:01 Temperature Pulse Rate 71 69 69 Respiratory Rate 15 20 18 Blood Pressure 111/63 116/60 Pulse Oximetry 99 99 Oxygen Delivery Oxygen Flow Rate Fraction of Inspired Oxygen 05/31/25 22:35 05/31/25 22:46 05/31/25 23:01 Temperature Pulse Rate 65 68 60 Respiratory Rate 17 17 14 Blood Pressure 123/61 125/64 124/59 L Pulse Oximetry 98 100 98 Oxygen Delivery Oxygen Flow Rate Fraction of Inspired Oxygen 05/31/25 23:16 06/01/25 00:15 06/01/25 01:15 Temperature Pulse Rate 65 60 Respiratory Rate 19 20 Blood Pressure 135/55 L 115/66 Pulse Oximetry 100 97 100 Oxygen Delivery Room Air Oxygen Flow Rate Fraction of Inspired Oxygen 06/01/25 03:02 06/01/25 03:54 06/01/25 04:00 Temperature 36.4 C L Pulse Rate 60 62 58 L Respiratory Rate 20 20 Blood Pressure 123/50 L Pulse Oximetry 100 100 Oxygen Delivery Room Air Oxygen Flow Rate Fraction of Inspired Oxygen 06/01/25 05:23 06/01/25 08:00 06/01/25 08:00 Temperature 36.4 C L Pulse Rate 58 L 60 56 L Respiratory Rate 18 Blood Pressure 122/55 L Pulse Oximetry 100 Oxygen Delivery Room Air Oxygen Flow Rate Fraction of Inspired Oxygen 06/01/25 08:00 06/01/25 10:00 06/01/25 11:20 Temperature 36.3 C L Pulse Rate 59 L 63 56 L Respiratory Rate 14 Blood Pressure 112/60 Pulse Oximetry 100 Oxygen Delivery Oxygen Flow Rate Fraction of Inspired Oxygen 06/01/25 12:00 06/01/25 12:00 06/01/25 14:00 Temperature Pulse Rate 68 63 53 L Respiratory Rate Blood Pressure Pulse Oximetry Oxygen Delivery Room Air Oxygen Flow Rate Fraction of Inspired Oxygen 06/01/25 15:36 06/01/25 16:00 06/01/25 16:00 Temperature 36.4 C Pulse Rate 57 L 55 L 55 L Respiratory Rate 18 Blood Pressure 122/53 L Pulse Oximetry 100 Oxygen Delivery Room Air Oxygen Flow Rate Fraction of Inspired Oxygen 06/01/25 18:00 06/01/25 20:00 Temperature 36.5 C Pulse Rate 58 L 56 L Respiratory Rate 20 Blood Pressure 115/53 L Pulse Oximetry 100 Oxygen Delivery Oxygen Flow Rate Fraction of Inspired Oxygen Exam 2 Narrative: Bilateral lower extremity with skin changes consistent with chronic edema. - no pain with range of motion of either hip. Right hip incision c/d/i Const: General: cooperative, comfortable and no acute distress O rientation/consciousness: oriented to person, oriented to place and oriented to time Results Labs 06/01/25 02:37 06/01/25 17:16 Labs: Abnormal lab results 05/31/25 05/31/25 05/31/25 Range/Units 20:36 21:05 21:37 WBC 3.9 L (4.5-10.0) K/mm3 RBC 2.53 L (4.6-6.20) M/mm3 Hgb 8.2 L (14.0-18.0) g/dL Hct 26.1 L (42.0-52.0) % MCV 103.2 H (80-100) fl MCHC 31.4 L (32-36) g/dl RDW 15.5 H (11.5-14.5) % Plt Count (150-375) k/mm3 Immature Gran % (Auto) (0-0.5) % Lymph % (Auto) 10.5 L (18.3-44.2) % [place] % (Auto) 13.0 H (2.6-8.5) % Eos % (Auto) 4.9 H (0-4.4) % Lymph # (Auto) 0.41 L (0.9-3.2) K/mm3 [place] # (Auto) (0.1-0.6) K/mm3 PT 19.7 H (11.1-14.7) Seconds APTT 40.0 H (22.3-36.8) Seconds Sodium 131 L (137-145) mmol/L Potassium 6.4 H* (3.4-5.0) mmol/L BUN 38 H (9-20) mg/dL Creatinine 2.08 H (0.7-1.3) mg/dL Estimated GFR 31 L (59 - ) Glucose 179 H (65-110) mg/dL POC Capillary Glucose 172 H (65-105) mg/dl Hemoglobin A1c (<5.7) % Lactic Acid 2.6 H (0.7-2.0) mmol/L Total Bilirubin (0.2-1.3) mg/dL Alkaline Phosphatase 293 H (38-126) U/L Total Creatine Kinase (55-170) U/L Troponin I (0.000-0.034) ng/mL C-Reactive Protein 2.8 H (<1.0) mg/dL NT-Pro-B Natriuret Pep 3910 H (19.9-100) pg/mL Albumin 3.4 L (3.5-5.1) g/dL Vitamin B12 (239-931) pg/mL Urine Protein (Negative) mg/dL Urine Ketones (Negative) mg/dL Urine Bilirubin (Negative) Leukocyte Esterase Rfl (Negative) BROOKE/UL 05/31/25 05/31/25 05/31/25 Range/Units 21:42 22:53 23:04 WBC (4.5-10.0) K/mm3 RBC (4.6-6.20) M/mm3 Hgb (14.0-18.0) g/dL Hct (42.0-52.0) % MCV (80-100) fl MCHC (32-36) g/dl RDW (11.5-14.5) % Plt Count (150-375) k/mm3 Immature Gran % (Auto) (0-0.5) % Lymph % (Auto) (18.3-44.2) % [place] % (Auto) (2.6-8.5) % Eos % (Auto) (0-4.4) % Lymph # (Auto) (0.9-3.2) K/mm3 [place] # (Auto) (0.1-0.6) K/mm3 PT (11.1-14.7) Seconds APTT (22.3-36.8) Seconds Sodium 131 L (137-145) mmol/L Potassium 5.8 H (3.4-5.0) mmol/L BUN 39 H (9-20) mg/dL Creatinine 2.03 H (0.7-1.3) mg/dL Estimated GFR 32 L (59 - ) Glucose 119 H (65-110) mg/dL POC Capillary Glucose 196 H 116 H (65-105) mg/dl Hemoglobin A1c (<5.7) % Lactic Acid (0.7-2.0) mmol/L Total Bilirubin (0.2-1.3) mg/dL Alkaline Phosphatase (38-126) U/L Total Creatine Kinase (55-170) U/L Troponin I (0.000-0.034) ng/mL C-Reactive Protein (<1.0) mg/dL NT-Pro-B Natriuret Pep (19.9-100) pg/mL Albumin (3.5-5.1) g/dL Vitamin B12 (239-931) pg/mL Urine Protein 1+ H (Negative) mg/dL Urine Ketones Trace H (Negative) mg/dL Urine Bilirubin 1+ H (Negative) Leukocyte Esterase Rfl Trace H (Negative) BROOKE/UL 06/01/25 06/01/25 06/01/25 Range/Units 00:08 00:50 02:37 WBC 4.2 L (4.5-10.0) K/mm3 RBC 2.49 L (4.6-6.20) M/mm3 Hgb 8.2 L (14.0-18.0) g/dL Hct 25.5 L (42.0-52.0) % MCV 102.4 H (80-100) fl MCHC (32-36) g/dl RDW 15.6 H (11.5-14.5) % Plt Count 127 L (150-375) k/mm3 Immature Gran % (Auto) 0.7 H (0-0.5) % Lymph % (Auto) 9.6 L (18.3-44.2) % [place] % (Auto) 15.6 H (2.6-8.5) % Eos % (Auto) (0-4.4) % Lymph # (Auto) 0.40 L (0.9-3.2) K/mm3 [place] # (Auto) 0.7 H (0.1-0.6) K/mm3 PT (11.1-14.7) Seconds APTT (22.3-36.8) Seconds Sodium 132 L (137-145) mmol/L Potassium 5.3 H (3.4-5.0) mmol/L BUN 39 H (9-20) mg/dL Creatinine 2.05 H (0.7-1.3) mg/dL Estimated GFR 31 L (59 - ) Glucose (65-110) mg/dL POC Capillary Glucose 130 H (65-105) mg/dl Hemoglobin A1c 6.1 H (<5.7) % Lactic Acid 2.1 H (0.7-2.0) mmol/L Total Bilirubin 1.4 H (0.2-1.3) mg/dL Alkaline Phosphatase 268 H (38-126) U/L Total Creatine Kinase 43 L (55-170) U/L Troponin I 0.040 H* (0.000-0.034) ng/mL C-Reactive Protein (<1.0) mg/dL NT-Pro-B Natriuret Pep (19.9-100) pg/mL Albumin 3.3 L (3.5-5.1) g/dL Vitamin B12 (239-931) pg/mL Urine Protein (Negative) mg/dL Urine Ketones (Negative) mg/dL Urine Bilirubin (Negative) Leukocyte Esterase Rfl (Negative) BROOKE/UL 06/01/25 06/01/25 06/01/25 Range/Units 06:57 11:31 16:04 WBC (4.5-10.0) K/mm3 RBC (4.6-6.20) M/mm3 Hgb (14.0-18.0) g/dL Hct (42.0-52.0) % MCV (80-100) fl MCHC (32-36) g/dl RDW (11.5-14.5) % Plt Count (150-375) k/mm3 Immature Gran % (Auto) (0-0.5) % Lymph % (Auto) (18.3-44.2) % [place] % (Auto) (2.6-8.5) % Eos % (Auto) (0-4.4) % Lymph # (Auto) (0.9-3.2) K/mm3 [place] # (Auto) (0.1-0.6) K/mm3 PT (11.1-14.7) Seconds APTT (22.3-36.8) Seconds Sodium (137-145) mmol/L Potassium (3.4-5.0) mmol/L BUN (9-20) mg/dL Creatinine (0.7-1.3) mg/dL Estimated GFR (59 - ) Glucose (65-110) mg/dL POC Capillary Glucose 133 H 162 H 172 H (65-105) mg/dl Hemoglobin A1c (<5.7) % Lactic Acid (0.7-2.0) mmol/L Total Bilirubin (0.2-1.3) mg/dL Alkaline Phosphatase (38-126) U/L Total Creatine Kinase (55-170) U/L Troponin I (0.000-0.034) ng/mL C-Reactive Protein (<1.0) mg/dL NT-Pro-B Natriuret Pep (19.9-100) pg/mL Albumin (3.5-5.1) g/dL Vitamin B12 (239-931) pg/mL Urine Protein (Negative) mg/dL Urine Ketones (Negative) mg/dL Urine Bilirubin (Negative) Leukocyte Esterase Rfl (Negative) BROOKE/UL 06/01/25 06/01/25 Range/Units 17:16 20:35 WBC (4.5-10.0) K/mm3 RBC (4.6-6.20) M/mm3 Hgb (14.0-18.0) g/dL Hct (42.0-52.0) % MCV (80-100) fl MCHC (32-36) g/dl RDW (11.5-14.5) % Plt Count (150-375) k/mm3 Immature Gran % (Auto) (0-0.5) % Lymph % (Auto) (18.3-44.2) % [place] % (Auto) (2.6-8.5) % Eos % (Auto) (0-4.4) % Lymph # (Auto) (0.9-3.2) K/mm3 [place] # (Auto) (0.1-0.6) K/mm3 PT (11.1-14.7) Seconds APTT (22.3-36.8) Seconds Sodium (137-145) mmol/L Potassium 5.5 H (3.4-5.0) mmol/L BUN (9-20) mg/dL Creatinine (0.7-1.3) mg/dL Estimated GFR (59 - ) Glucose (65-110) mg/dL POC Capillary Glucose 215 H (65-105) mg/dl Hemoglobin A1c (<5.7) % Lactic Acid (0.7-2.0) mmol/L Total Bilirubin (0.2-1.3) mg/dL Alkaline Phosphatase (38-126) U/L Total Creatine Kinase (55-170) U/L Troponin I (0.000-0.034) ng/mL C-Reactive Protein (<1.0) mg/dL NT-Pro-B Natriuret Pep (19.9-100) pg/mL Albumin (3.5-5.1) g/dL Vitamin B12 986.0 H (239-931) pg/mL Urine Protein (Negative) mg/dL Urine Ketones (Negative) mg/dL Urine Bilirubin (Negative) Leukocyte Esterase Rfl (Negative) BROOKE/UL H & H 05/31/25 06/01/25 Range/Units 20:36 02:37 Hgb 8.2 L 8.2 L (14.0-18.0) g/dL Hct 26.1 L 25.5 L (42.0-52.0) % Coagulation 05/31/25 Range/Units 21:37 INR 1.7 All other labs normal.
[2025-06-01] MEDS: MELATONIN 3 MG TABLET PO (21:44)
[2025-06-01] MEDS: INSULIN GLARGINE (*BKC) 100 UNITS/ML 25 UNITS SUB-Q (21:44)
[2025-06-02] VITALS (17 sets, daily range): BP systolic 111–157; BP diastolic 50–97; PULSE 51–89; RESP 16–21; TEMP 36.3–36.6; O2SAT 99–100; BMI 38.9
[2025-06-02] MEDS: ACETAMINOPHEN 325 MG TABLET 650 MG PO ×3 (00:39→23:05)
[2025-06-02 04:18] LABS: Hematocrit 25.2 % (42.0-52.0); Hemoglobin 7.9 g/dL (14.0-18.0); Immature Granulocyte Percent A 0.6 % (0-0.5); Lymphocytes Absolute Auto 0.39 K/mm3 (0.9-3.2); Mean Corpuscular HGB Conc 31.3 g/dl (32-36); Mean Corpuscular Hemoglobin 32.5 pg (26-34); Mean Corpuscular Volume 103.7 fl (80-100); Nucleated Red Blood Cells Absolute Auto 0.000 K/mm3 (0.0-0.012); Nucleated Red Blood Cells Perc 0.0 % (0.0-0.2); Platelet Count Result 129 k/mm3 (150-375); Red Blood Count 2.43 M/mm3 (4.6-6.20); White Blood Count 3.4 K/mm3 (4.5-10.0)
[2025-06-02] MEDS: MAG HYDROX/AL HYDROX/SIMETH 30 ML UDC 20 ML PO (04:27)
[2025-06-02 04:31] LABS: Alanine Aminotransferase 17 U/L (6-50); Albumin Level 3.2 g/dL (3.5-5.1); Alkaline Phosphatase 264 U/L (38-126); Anion Gap 8 mmol/L (4-12); Aspartate Amino Transferase 38 U/L (17-59); Bilirubin,Total 1.3 mg/dL (0.2-1.3); Blood Urea Nitrogen 38 mg/dL (9-20); Calcium 8.9 mg/dL (8.4-10.2); Carbon Dioxide 24 mmol/L (22-30); Chloride 98 mmol/L (98-107); Estimated CRCL calculation 41 ml/min; Estimated Glomerular Filt Rate 35; Glucose 173 mg/dL (65-110); Magnesium 2.2 mg/dL (1.6-2.3); Potassium 5.2 mmol/L (3.4-5.0); Sodium 130 mmol/L (137-145); Total Protein 6.5 g/dL (6.3-8.2)
[2025-06-02 04:58] LABS: Thyroid Stimulating Hormone Reflex 2.930 uIU/mL (0.465-4.68)
[2025-06-02] MEDS: RANOLAZINE 500 MG TAB.ER.12H PO ×2 (09:55→20:39)
[2025-06-02] MEDS: SENNA/DOCUSATE SODIUM TABLET 1 TAB PO ×2 (09:55→17:25)
[2025-06-02] MEDS: INSULIN GLARGINE (*BKC) 100 UNITS/ML 25 UNITS SUB-Q ×2 (09:56→20:39)
[2025-06-02] MEDS: SODIUM ZIRCONIUM CYCLOSILICATE 10 GM POWD.PACK PO ×2 (09:57→17:25)
[2025-06-02] MEDS: PANTOPRAZOLE 40 MG TABLET PO (09:57)
[2025-06-02] MEDS: APIXABAN 5 MG TABLET PO ×2 (09:57→20:39)
[2025-06-02] MEDS: SODIUM CHLORIDE 1 GM TABLET PO ×2 (10:04→17:25)
[2025-06-02] MEDS: INSULIN ASPART (*BKC) 100 UNITS/ML SUB-Q (11:55)
[2025-06-02] MEDS: GENTAMICIN SULFATE 0.1% OINT 15 GM TUBE 1 APPLIC TOPICAL (11:55)
[2025-06-02] MEDS: INSULIN ASPART (*BKC) 100 UNITS/ML 9 UNITS SUB-Q (11:55)
--- NOTE | 2025-06-02 12:16 | P.PNNP_ITS ---
Progress Note: A&P Assessment and Plan (1) Hyperkalemia: Code(s): E87.5 - Hyperkalemia Status: Acute Assessment and Plan: * slow improvement * as noted in ER * initially 6.4 associated with bradycardia, EKG changes and low BP * s/p medical management (lokelma/insulin/dextrose/albuterol/calcium...etc) x 2 on admission * on scheduled lokelma at this time * due to AALIYAH +/- other(?) * follow trend of repeat K+ (2) Acute kidney injury: Code(s): N17.9 - Acute kidney failure, unspecified Status: Acute Assessment and Plan: * as noted on admission - creatinine of 2.08mg/dL * etiology not clear -- possibilities include: * bradycardia * relative hypotension * prerenal factors * other(?) * evaluation to date noted: * renal u/s without obstruction * CPK low * urine eosinophils negative * urine electrolytes non-prerenal * no significant proteinuria * diuretics on hold * follow trend of repeat labs and UOP (3) Stage 3 chronic kidney disease: Code(s): N18.30 - Chronic kidney disease, stage 3 unspecified Status: Chronic Assessment and Plan: * baseline creatinine runs around 1.2 - 1.6mg/dl for the last few years * this causes this to fluctuate between CKD stage 3A and 3B * presumably due to diabetes, hypertension, vascular disease (CAD + CHF + hyperlipidemia), MARIANNA, obesity, and age-related disease (4) Symptomatic bradycardia: Code(s): R00.1 - Bradycardia, unspecified Status: Acute Assessment and Plan: * as noted in the ER * likely secondary to significant hyperkalemia * clinical improvement noted with treatment of hyperkalemia and atropine * follow telemetry * Cardiology recommendations noted (5) Atrial fibrillation: Qualifiers: Atrial fibrillation type: persistent (not longstanding) Qualified Code(s): I48.19 - Other persistent atrial fibrillation Code(s): I48.91 - Unspecified atrial fibrillation Status: Chronic Assessment and Plan: * known history * rate control strategy * on anticoagulation (6) Closed fracture of left inferior pubic ramus: Code(s): S32.592A - Other specified fracture of left pubis, initial encounter for closed fracture Status: Acute Assessment and Plan: * as suggested by x-rays in ER * Orthopedic Surgery recommendations noted * WBAT with PT/OT (7) Acetabulum fracture, left: Code(s): S32.402A - Unspecified fracture of left acetabulum, initial encounter for closed fracture Status: Acute Assessment and Plan: * as suggested by x-rays in ER * Orthopedic Surgery recommends WBAT with PT/OT (8) Diabetes mellitus with neuropathy: Qualifiers: Diabetes mellitus penitentiary insulin use: with 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 L Subjective Date/time seen: 06/02/25 12:16 Interval history: Follow-up for acute kidney injury/acute renal failure on chronic kidney disease and hyperkalemia. Potassium and renal function appear to be doing better at this time; seen by Orthopedic surgery yesterday evening; no apparent distress noted at the time of my visit; overall, feels reasoably well when seen. Exam 2 Narrative: General: elderly but WD/WN male in NAD Heart: normal S1 and S2; no rub Lungs: coarse and decreased at bases Abdomen: soft, nontender, nondistended, positive bowel sounds Extremities: no cyanosis or clubbing; trace - 1+ edema Skin: warm and dry Objective Data Vital Signs Vital Signs: Vital Signs Temp Pulse Resp BP Pulse Ox O2 Del Method 06/02/25 12:00 52 L Room Air 06/02/25 11:40 97.5 F L 55 L 16 111/52 L 100 06/02/25 10:18 Room Air 06/02/25 10:00 56 L 06/02/25 08:00 54 L 06/02/25 08:00 51 L Room Air 06/02/25 07:50 97.6 F 53 L 16 124/50 L 100 06/02/25 06:00 57 L 06/02/25 04:00 59 L 06/02/25 04:00 97.8 F 89 16 157/97 H 100 06/02/25 04:00 Room Air 06/02/25 02:00 53 L 06/02/25 00:00 57 L 06/02/25 00:00 Room Air 06/01/25 23:51 97.7 F 59 L 18 121/53 L 98 06/01/25 22:00 59 L 06/01/25 20:00 53 L 06/01/25 20:00 Room Air 06/01/25 20:00 97.7 F 56 L 20 115/53 L 100 06/01/25 18:00 58 L Intake/Output Intake/Output: Intake & Output 05/30/25 05/31/25 06/01/25 06/02/25 23:59 23:59 23:59 23:59 Intake Total 50 1100 760 Output Total 550 500 Balance 50 550 260 Meds/Results Medications: Active Medications Generic Name Dose Route Start Last Admin Trade Name Freq PRN Reason Stop Dose Admin Acetaminophen 650 mg 06/01/25 06:59 06/02/25 06:24 Acetaminophen 325 Mg Tablet PO 650 mg Q6H PRN Administration Pain (Scale Score 1-3) Apixaban 5 mg 06/01/25 09:00 06/02/25 09:57 Apixaban 5 Mg Tablet PO 5 mg Q12HR YUNIOR Administration Dextrose 12.5 gm 06/01/25 01:21 Dextrose 50% 25 Gm/50 Ml Syringe IV PUSH PRN PRN Hypoglycemia Protocol Gentamicin Sulfate 1 applic 06/02/25 09:00 06/02/25 11:55 Gentamicin Sulfate 0.1% Oint 15 Gm Tube TOPICAL 1 applic DAILY YUNIOR Administration Glucagon 1 mg 06/01/25 01:21 Glucagon For Inj 1 Mg Vial IM PRN PRN Hypoglycemia Protocol Glucose 15 gm 06/01/25 01:21 Glucose Oral Gel 15 Gm Of Glucse In 37.5 Gm Tube PO PRN PRN Hypoglycemia Protocol Dextrose 1,000 mls @ 100 mls/hr 06/01/25 01:21 Dextrose 5% 1,000 Ml IVPB PRN PRN Hypoglycemia Protocol Insulin Aspart 4 - 8 units 06/01/25 08:00 06/02/25 11:55 Insulin Aspart (*Bkc) 100 Units/Ml SUB-Q 4 units TIDWM YUNIOR Administration Protocol Insulin Aspart 9 units 06/01/25 08:00 06/02/25 11:55 Insulin Aspart (*Bkc) 100 Units/Ml 0.067 units/kg (9 units) 9 units SUB-Q Administration TIDWM [facility] Insulin Glargine 25 units 06/01/25 21:00 06/02/25 09:56 Insulin Glargine (*Bkc) 100 Units/Ml SUB-Q 25 units Q12HR YUNIOR Administration Melatonin 3 mg 06/01/25 21:00 06/01/25 21:44 Melatonin 3 Mg Tablet PO 3 mg HS YUNIOR Administration Nitroglycerin 0.4 mg 06/01/25 07:00 Nitroglycerin Sl 0.4 Mg Tablet SUBLINGUAL Q5MIN PRN Chest Pain Pantoprazole Sodium 40 mg 06/01/25 09:00 06/02/25 09:57 Pantoprazole 40 Mg Tablet PO 40 mg QAM YUNIOR Administration Polyethylene Glycol 17 gm 06/01/25 06:59 Polyethylene Glycol 3350 17 Gm Powd.Pack PO QAM PRN Constipation Polysaccharide Iron Complex 150 mg 06/01/25 09:00 06/02/25 09:55 Polysaccharide Iron Complex 150 Mg Capsule PO 150 mg DAILY YUNIOR Administration Ranolazine 500 mg 06/01/25 09:00 06/02/25 09:55 Ranolazine 500 Mg Tab.Er.12h PO 500 mg Q12HR YUNIOR Administration Senna/Docusate Sodium 1 tab 06/01/25 09:00 06/02/25 09:55 Senna/Docusate Sodium Tablet PO 1 tab BID YUNIOR Administration Sodium Chloride 1 gm 06/01/25 09:00 06/02/25 10:04 Sodium Chloride 1 Gm Tablet PO 1 gm BID YUNIOR Administration Sodium Zirconium Cyclosilicate 10 gm 06/01/25 10:00 06/02/25 09:57 Sodium Zirconium Cyclosilicate 10 Gm Powd.Pack PO 10 gm BID@1000,1800 YUNIOR Administration Radiology Results: ITS Impressions Chest X-Ray 05/31/25 20:59 IMPRESSION: 1. No acute cardiopulmonary disease. Hip/Pelvis X-Ray 06/01/25 06:51 Impression: 1: Possible fractures of the left acetabulum and inferior pubic ramus. Recommend correlation with CT. Head/Cervical Spine/Facial Bones CT 06/01/25 07:18 IMPRESSION: 1. No acute fracture of the facial bones or cervical spine. Head CT 06/01/25 07:22 IMPRESSION: 1. No acute intracranial abnormality. 2: Mild sinus disease. Renal Ultrasound 06/01/25 10:52 Impression: 1. Simple appearing right renal cyst. Labs Labs: Laboratory Tests 06/02/25 03:34 06/02/25 03:34 Calcium 8.9 Magnesium 2.2 Total Bilirubin 1.3 AST 38 ALT 17 Alkaline Phosphatase 264 H Total Protein 6.5 Albumin 3.2 L TSH (Reflex) 2.930
--- NOTE | 2025-06-02 14:38 | WNDPHOTO ---
PHOTO ONLY - See Nursing Notes and/ or assessments for documentation.
--- NOTE | 2025-06-02 14:49 | WNDPHOTO ---
PHOTO ONLY - See Nursing Notes and/ or assessments for documentation.
--- NOTE | 2025-06-02 16:49 | P.PNIM_ITS ---
Progress Note: A&P Assessment and Plan (1) Acute hyperkalemia: Code(s): E87.5 - Hyperkalemia Status: Acute Assessment and Plan: Potassium 6.4 with bradycardia and hypotension EKG on admission showing junctional escape rhythm with ventricular bigeminy, LAD, LBBB. Hyperkalemia was treated appropriately. BP and HR stable after first round of treatment, patient admitted to IMU Repeat potassium 5.8 prompting a second round of treatment Repeat potassium still mildly elevated but better overall He remains on Lokelma. Nephrology following and appreciate their input Follow-up potassium and treat accordingly. Continue low-potassium renal diet (2) Symptomatic bradycardia: Code(s): R00.1 - Bradycardia, unspecified Status: Acute Assessment and Plan: As above. [place] junctional escape rhythm related to the severe hyperkalemia. Currently sinus bradycardia by telemetry. He has an underlying chronic first-degree AV block and chronic left bundle branch block Cardiology consulted and appreciate their input. Monitor on telemetry (3) AALIYAH (acute kidney injury): Code(s): N17.9 - Acute kidney failure, unspecified Status: Acute Assessment and Plan: Baseline creatinine is 1.1-1.2 range earlier this year. Creatinine 2.1 on admission UA shows 1+ protein but no blood or red blood cells. Urine eosinophils are negative. Protein to creatinine ratio is normal. Urine electrolytes are non prerenal. Nephrology consulted and appreciate their input. Cr slightly better. Monitor urine output, electrolytes and renal function. (4) Atrial fibrillation: Qualifiers: Atrial fibrillation type: persistent (not longstanding) Qualified Code(s): I48.19 - Other persistent atrial fibrillation Code(s): I48.91 - Unspecified atrial fibrillation Status: Chronic Assessment and Plan: Patient has a history of atrial fibrillation. Heart rate stable and noted to be in sinus bradycardia at this time. Continue Eliquis and Coreg. (5) Closed fracture of left inferior pubic ramus: Code(s): S32.592A - Other specified fracture of left pubis, initial encounter for closed fracture Status: Acute Assessment and Plan: Patient had a fall prior to admission. Two-view x-ray of the right hip and pelvis shows possible fractures of the left acetabulum and inferior pubic rami. Pelvic CT ordered but not felt to be required by ortho so this was cancelled. Given his injury to his right foot, right foot x-ray ordered but cancelled as well. Unclear why he fell. UA is not consistent with UTI. Chest x-ray not consistent with pneumonia. He has a macrocytosis but B12, folate and TSH normal. Check Abd US to assess for occult cirrhosis (macrocytosis, low plt, low WBC, elevated PT/PTT). 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 The patient's blood glucose was reviewed on 06/02 Glucose remains well controlled. Continue AccuCheks covering with sliding scale. Hypoglycemia protocol available as needed. Was on Lantus 33u at night and Novolog 20U TID at meals. Insulin adjusted to Lantus 25U Q12 and Novolog 9u TID Continue current Lantus and scheduled NovoLog at mealtimes (8) Obstructive sleep apnea: Code(s): G47.33 - Obstructive sleep apnea (adult) (pediatric) Status: Chronic Assessment and Plan: Patient with known obstructive apnea but is unable to tolerate BiPAP. No ABG to evaluate Plan Code status -full DVT prophylaxis -Eliquis Subjective Date/time seen: 06/02/25 16:49 Interval history: 79yo male with CKD, CHF, CAD, DM, MARIANNA and pulm HTN admitted to the hospital for abnormal heart rhythm related to hyperkalemia along with AALIYAH and hypotension. Increased right leg pain last night but better this morning. Up to the chair yesterday. No SOB. Had chest wall pain last night that was left lower chest and localized and tender to touch that has resolved. Mylanta overnight for nausea. Exam Narrative: AF 97.4 122/50 54 20 100% ra Gen - NARD HEENT - small ecchymosis right forehead. Dried blood noted bridge of nose. Chest - left base inspiratory crackles o/w clear. nml RR CV - irregular. Tele showing PVCs and sinus bradycardia (HR around 55) Abd - Soft, obese, NT Ext - trace-1+ pedal edema Psych - Nml mood and affect Skin - Warm and dry. Old blood noted between toes to right foot. Objective Data Vital Signs Vital Signs: Vital Signs - 24 hr 06/01/25 18:00 06/01/25 20:00 06/01/25 20:00 Temperature 97.7 F Pulse Rate 58 L 56 L Respiratory Rate 20 Blood Pressure 115/53 L Pulse Oximetry 100 Oxygen Delivery Room Air 06/01/25 20:00 06/01/25 22:00 06/01/25 23:51 Temperature 97.7 F Pulse Rate 53 L 59 L 59 L Respiratory Rate 18 Blood Pressure 121/53 L Pulse Oximetry 98 Oxygen Delivery 06/02/25 00:00 06/02/25 00:00 06/02/25 02:00 Temperature Pulse Rate 57 L 53 L Respiratory Rate Blood Pressure Pulse Oximetry Oxygen Delivery Room Air 06/02/25 04:00 06/02/25 04:00 06/02/25 04:00 Temperature 97.8 F Pulse Rate 89 59 L Respiratory Rate 16 Blood Pressure 157/97 H Pulse Oximetry 100 Oxygen Delivery Room Air 06/02/25 06:00 06/02/25 07:50 06/02/25 08:00 Temperature 97.6 F Pulse Rate 57 L 53 L 51 L Respiratory Rate 16 Blood Pressure 124/50 L Pulse Oximetry 100 Oxygen Delivery Room Air 06/02/25 08:00 06/02/25 10:00 06/02/25 10:18 Temperature Pulse Rate 54 L 56 L Respiratory Rate Blood Pressure Pulse Oximetry Oxygen Delivery Room Air 06/02/25 11:40 06/02/25 12:00 06/02/25 12:00 Temperature 97.5 F L Pulse Rate 55 L 52 L 55 L Respiratory Rate 16 Blood Pressure 111/52 L Pulse Oximetry 100 Oxygen Delivery Room Air 06/02/25 14:00 06/02/25 15:49 Temperature 97.4 F L Pulse Rate 53 L 54 L Respiratory Rate 20 Blood Pressure 122/50 L Pulse Oximetry 100 Oxygen Delivery Intake/Output Intake/Output: Intake & Output 05/30/25 05/31/25 06/01/2528/25 23:59 23:59 23:59 23:59 Intake Total 50 1100 760 Output Total 550 500 Balance 50 550 260 Meds/Results Medications: Active Medications Generic Name Dose Route Start Last Admin Trade Name Freq PRN Reason Stop Dose Admin Acetaminophen 650 mg 06/01/25 06:59 06/02/25 06:24 Acetaminophen 325 Mg Tablet PO 650 mg Q6H PRN Administration Pain (Scale Score 1-3) Apixaban 5 mg 06/01/25 09:00 06/02/25 09:57 Apixaban 5 Mg Tablet PO 5 mg Q12HR YUNIOR Administration Dextrose 12.5 gm 06/01/25 01:21 Dextrose 50% 25 Gm/50 Ml Syringe IV PUSH PRN PRN Hypoglycemia Protocol Gentamicin Sulfate 1 applic 06/02/25 09:00 06/02/25 11:55 Gentamicin Sulfate 0.1% Oint 15 Gm Tube TOPICAL 1 applic DAILY YUNIOR Administration Glucagon 1 mg 06/01/25 01:21 Glucagon For Inj 1 Mg Vial IM PRN PRN Hypoglycemia Protocol Glucose 15 gm 06/01/25 01:21 Glucose Oral Gel 15 Gm Of Glucse In 37.5 Gm Tube PO PRN PRN Hypoglycemia Protocol Dextrose 1,000 mls @ 100 mls/hr 06/01/25 01:21 Dextrose 5% 1,000 Ml IVPB PRN PRN Hypoglycemia Protocol Insulin Aspart 4 - 8 units 06/01/25 08:00 06/02/25 11:55 Insulin Aspart (*Bkc) 100 Units/Ml SUB-Q 4 units TIDWM YUNIOR Administration Protocol Insulin Aspart 9 units 06/01/25 08:00 06/02/25 11:55 Insulin Aspart (*Bkc) 100 Units/Ml 0.067 units/kg (9 units) 9 units SUB-Q Administration TIDWM YUNIOR Insulin Glargine 25 units 06/01/25 21:00 06/02/25 09:56 Insulin Glargine (*Bkc) 100 Units/Ml SUB-Q 25 units Q12HR YUNIOR Administration Melatonin 3 mg 06/01/25 21:00 06/01/25 21:44 Melatonin 3 Mg Tablet PO 3 mg HS YUNIOR Administration Nitroglycerin 0.4 mg 06/01/25 07:00 Nitroglycerin Sl 0.4 Mg Tablet SUBLINGUAL Q5MIN PRN Chest Pain Pantoprazole Sodium 40 mg 06/01/25 09:00 06/02/25 09:57 Pantoprazole 40 Mg Tablet PO 40 mg QAM YUNIOR Administration Polyethylene Glycol 17 gm 06/01/25 06:59 Polyethylene Glycol 3350 17 Gm Powd.Pack PO QAM PRN Constipation Polysaccharide Iron Complex 150 mg 06/01/25 09:00 06/02/25 09:55 Polysaccharide Iron Complex 150 Mg Capsule PO 150 mg DAILY YUNIOR Administration Ranolazine 500 mg 06/01/25 09:00 06/02/25 09:55 Ranolazine 500 Mg Tab.Er.12h PO 500 mg Q12HR YUNIOR Administration Senna/Docusate Sodium 1 tab 06/01/25 09:00 06/02/25 09:55 Senna/Docusate Sodium Tablet PO 1 tab BID YUNIOR Administration Sodium Chloride 1 gm 06/01/25 09:00 06/02/25 10:04 Sodium Chloride 1 Gm Tablet PO 1 gm BID YUNIOR Administration Sodium Zirconium Cyclosilicate 10 gm 06/01/25 10:00 06/02/25 09:57 Sodium Zirconium Cyclosilicate 10 Gm Powd.Pack PO 10 gm BID@1000,1800 YUNIOR Administration Radiology Results: ITS Impressions Chest X-Ray 05/31/25 20:59 IMPRESSION: 1. No acute cardiopulmonary disease. Hip/Pelvis X-Ray 06/01/25 06:51 Impression: 1: Possible fractures of the left acetabulum and inferior pubic ramus. Recommend correlation with CT. Head/Cervical Spine/Facial Bones CT 06/01/25 07:18 IMPRESSION: 1. No acute fracture of the facial bones or cervical spine. Head CT 06/01/25 07:22 IMPRESSION: 1. No acute intracranial abnormality. 2: Mild sinus disease. Renal Ultrasound 06/01/25 10:52 Impression: 1. Simple appearing right renal cyst. Labs Labs: Laboratory Results - last 24 hr 06/01/25 06/01/25 06/01/25 17:12 17:12 17:16 WBC RBC Hgb Hct MCV MCH MCHC RDW Plt Count MPV Immature Gran % (Auto) Neut % (Auto) Lymph % (Auto) [place] % (Auto) Eos % (Auto) Baso % (Auto) Lymph # (Auto) [place] # (Auto) Eos # (Auto) Baso # (Auto) Abs Immat Gran (auto) Absolute Neuts (auto) Absolute Nucleated RBC Nucleated RBC % Sodium Potassium 5.5 H Chloride Carbon Dioxide Anion Gap BUN Creatinine Estim Creat Clear Calc Estimated GFR Glucose POC Capillary Glucose Calcium Magnesium Total Bilirubin AST ALT Alkaline Phosphatase Total Protein Albumin Vitamin B12 986.0 H Folate 9.8 TSH (Reflex) Urine Eosinophils None seen U Random Total Protein < 5 Ur Random Sodium 74 Ur Random Urea 437 Urine Creatinine 59.7 Cancelled Protein/Creat Ratio 2 < 0.08 06/01/25 06/02/25 06/02/25 20:35 03:34 07:14 WBC 3.4 L RBC 2.43 L Hgb 7.9 L Hct 25.2 L MCV 103.7 H MCH 32.5 MCHC 31.3 L RDW 15.5 H Plt Count 129 L MPV 9.8 Immature Gran % (Auto) 0.6 H Neut % (Auto) 65.6 Lymph % (Auto) 11.4 L [place] % (Auto) 16.0 H Eos % (Auto) 5.8 H Baso % (Auto) 0.6 Lymph # (Auto) 0.39 L [place] # (Auto) 0.6 Eos # (Auto) 0.2 Baso # (Auto) 0.0 Abs Immat Gran (auto) 0.02 Absolute Neuts (auto) 2.3 Absolute Nucleated RBC 0.000 Nucleated RBC % 0.0 Sodium 130 L Potassium 5.2 H Chloride 98 Carbon Dioxide 24 Anion Gap 8 BUN 38 H Creatinine 1.89 H Estim Creat Clear Calc 41 Estimated GFR 35 L Glucose 173 H POC Capillary Glucose 215 H 164 H Calcium 8.9 Magnesium 2.2 Total Bilirubin 1.3 AST 38 ALT 17 Alkaline Phosphatase 264 H Total Protein 6.5 Albumin 3.2 L Vitamin B12 Folate TSH (Reflex) 2.930 Urine Eosinophils U Random Total Protein Ur Random Sodium Ur Random Urea Urine Creatinine Protein/Creat Ratio 2 06/02/25 06/02/25 11:20 15:33 WBC RBC Hgb Hct MCV MCH MCHC RDW Plt Count MPV Immature Gran % (Auto) Neut % (Auto) Lymph % (Auto) [place] % (Auto) Eos % (Auto) Baso % (Auto) Lymph # (Auto) [place] # (Auto) Eos # (Auto) Baso # (Auto) Abs Immat Gran (auto) Absolute Neuts (auto) Absolute Nucleated RBC Nucleated RBC % Sodium Potassium Chloride Carbon Dioxide Anion Gap BUN Creatinine Estim Creat Clear Calc Estimated GFR Glucose POC Capillary Glucose 207 H 160 H Calcium Magnesium Total Bilirubin AST ALT Alkaline Phosphatase Total Protein Albumin Vitamin B12 Folate TSH (Reflex) Urine Eosinophils U Random Total Protein Ur Random Sodium Ur Random Urea Urine Creatinine Protein/Creat Ratio 2
[2025-06-02 17:26] LABS: Anion Gap 8 mmol/L (4-12); Blood Urea Nitrogen 37 mg/dL (9-20); Calcium 8.9 mg/dL (8.4-10.2); Carbon Dioxide 24 mmol/L (22-30); Chloride 98 mmol/L (98-107); Estimated CRCL calculation 43 ml/min; Estimated Glomerular Filt Rate 37; Glucose 126 mg/dL (65-110); Potassium 5.0 mmol/L (3.4-5.0); Sodium 130 mmol/L (137-145)
--- NOTE | 2025-06-02 19:03 | PC.NURSE ---
Per Hospitalist, do not apply Gentamicin ointment to wound on coccyx.
[2025-06-02] MEDS: MELATONIN 3 MG TABLET PO (20:39)
[2025-06-03] VITALS (16 sets, daily range): BP systolic 117–130; BP diastolic 43–51; PULSE 53–61; RESP 17–20; TEMP 36.4–36.6; O2SAT 95–100
[2025-06-03 04:28] LABS: Hematocrit 24.9 % (42.0-52.0); Hemoglobin 8.0 g/dL (14.0-18.0); Immature Granulocyte Percent A 0.8 % (0-0.5); Lymphocytes Absolute Auto 0.36 K/mm3 (0.9-3.2); Mean Corpuscular HGB Conc 32.1 g/dl (32-36); Mean Corpuscular Hemoglobin 32.9 pg (26-34); Mean Corpuscular Volume 102.5 fl (80-100); Nucleated Red Blood Cells Absolute Auto 0.000 K/mm3 (0.0-0.012); Nucleated Red Blood Cells Perc 0.0 % (0.0-0.2); Platelet Count Result 137 k/mm3 (150-375); Red Blood Count 2.43 M/mm3 (4.6-6.20); White Blood Count 3.5 K/mm3 (4.5-10.0)
[2025-06-03 04:36] LABS: Ammonia 67 umol/L (9-30)
[2025-06-03 04:43] LABS: Alanine Aminotransferase 18 U/L (6-50); Albumin Level 3.1 g/dL (3.5-5.1); Alkaline Phosphatase 249 U/L (38-126); Anion Gap 5 mmol/L (4-12); Aspartate Amino Transferase 42 U/L (17-59); Bilirubin,Total 1.1 mg/dL (0.2-1.3); Blood Urea Nitrogen 36 mg/dL (9-20); Calcium 8.9 mg/dL (8.4-10.2); Carbon Dioxide 25 mmol/L (22-30); Chloride 99 mmol/L (98-107); Estimated CRCL calculation 48 ml/min; Estimated Glomerular Filt Rate 41; Glucose 158 mg/dL (65-110); Magnesium 2.0 mg/dL (1.6-2.3); Potassium 4.7 mmol/L (3.4-5.0); Sodium 129 mmol/L (137-145); Total Protein 6.4 g/dL (6.3-8.2)
[2025-06-03] MEDS: INSULIN GLARGINE (*BKC) 100 UNITS/ML 25 UNITS SUB-Q (08:15)
[2025-06-03] MEDS: INSULIN ASPART (*BKC) 100 UNITS/ML 9 UNITS SUB-Q ×2 (08:16→11:47)
[2025-06-03] MEDS: LACTULOSE 20 GM/30 ML UDC PO (08:16)
[2025-06-03] MEDS: SODIUM CHLORIDE 1 GM TABLET PO ×2 (08:16→18:03)
[2025-06-03] MEDS: PANTOPRAZOLE 40 MG TABLET PO (08:16)
[2025-06-03] MEDS: SENNA/DOCUSATE SODIUM TABLET 1 TAB PO ×2 (08:16→18:03)
[2025-06-03] MEDS: APIXABAN 5 MG TABLET PO ×2 (08:16→21:29)
[2025-06-03] MEDS: RANOLAZINE 500 MG TAB.ER.12H PO ×2 (08:16→21:29)
[2025-06-03 10:15] LABS: Hepatitis B Surface Antigen Negative (Negative)
[2025-06-03 10:33] LABS: Hepatitis B Surface Anti Res Negative
[2025-06-03 11:00] LABS: Iron 58 ug/dL (49-181)
[2025-06-03 11:12] LABS: Percent Iron Saturation 16 % (20-50)
--- NOTE | 2025-06-03 11:20 | P.PNNP_ITS ---
Progress Note: A&P Assessment and Plan (1) Hyperkalemia: Code(s): E87.5 - Hyperkalemia Status: Acute Assessment and Plan: * slow improvement * as noted in ER * initially 6.4 associated with bradycardia, EKG changes and low BP * s/p medical management (lokelma/insulin/dextrose/albuterol/calcium...etc) x 2 on admission * on scheduled lokelma at this time * wean as tolerated * due to AALIYAH +/- other(?) * follow trend of repeat K+ (2) Acute kidney injury: Code(s): N17.9 - Acute kidney failure, unspecified Status: Acute Assessment and Plan: * slow improvement if not resolving * as noted on admission - creatinine of 2.08mg/dL * etiology not clear -- possibilities include: * bradycardia * relative hypotension * prerenal factors * other(?) * evaluation to date noted: * renal u/s without obstruction * CPK low * urine eosinophils negative * urine electrolytes non-prerenal * no significant proteinuria * diuretics on hold * probably ok to restart (this may further help maintain K+ level) * follow trend of repeat labs and UOP (3) Stage 3 chronic kidney disease: Code(s): N18.30 - Chronic kidney disease, stage 3 unspecified Status: Chronic Assessment and Plan: * baseline creatinine runs around 1.2 - 1.6mg/dl for the last few years * this causes this to fluctuate between CKD stage 3A and 3B * presumably due to diabetes, hypertension, vascular disease (CAD + CHF + hyperlipidemia), MARIANNA, obesity, and age-related disease (4) Symptomatic bradycardia: Code(s): R00.1 - Bradycardia, unspecified Status: Acute Assessment and Plan: * as noted in the ER * likely secondary to significant hyperkalemia * clinical improvement noted with treatment of hyperkalemia and atropine * follow telemetry * Cardiology recommendations noted (5) Anemia: Qualifiers: Anemia type: unspecified type Qualified Code(s): D64.9 - Anemia, unspecified Code(s): D64.9 - Anemia, unspecified Status: Acute Assessment and Plan: * noted on admission * anemia studies with iron deficiency * on iron supplementation * follow trend of H/H (6) Hyponatremia: Code(s): E87.1 - Hypo-osmolality and hyponatremia Status: Acute Assessment and Plan: * noted in April 2025 * started on salt tabs during stay in [place] * should improve with restart of loop diuretics (7) Atrial fibrillation: Qualifiers: Atrial fibrillation type: persistent (not longstanding) Qualified Code(s): I48.19 - Other persistent atrial fibrillation Code(s): I48.91 - Unspecified atrial fibrillation Status: Chronic Assessment and Plan: * known history * rate control strategy * on anticoagulation (8) Closed fracture of left inferior pubic ramus: Code(s): S32.592A - Other specified fracture of left pubis, initial encounter for closed fracture Status: Acute Assessment and Plan: * as suggested by x-rays in ER * Orthopedic Surgery recommendations noted * WBAT with PT/OT (9) Acetabulum fracture, left: Code(s): S32.402A - Unspecified fracture of left acetabulum, initial encounter for closed fracture Status: Acute Assessment and Plan: * as suggested by x-rays in ER * Orthopedic Surgery recommends WBAT with PT/OT (10) Diabetes mellitus with neuropathy: Qualifiers: 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 L Subjective Date/time seen: 06/03/25 11:20 Interval history: Follow-up for acute kidney injury/acute renal failure on chronic kidney disease and hyperkalemia. Sitting up in chair at the time of my visit in no apparent distress; no new issues or complaints voiced when seen; renal function/creatinine along with potassium continue to slowly improve; no other events overnight or earlier this morning. Exam 2 Narrative: General: elderly but WD/WN male in NAD Heart: normal S1 and S2; no rub Lungs: coarse and decreased at bases Abdomen: soft, nontender, nondistended, positive bowel sounds Extremities: no cyanosis or clubbing; trace - 1+ edema Skin: warm and intact Objective Data Vital Signs Vital Signs: Vital Signs Temp Pulse Resp BP Pulse Ox O2 Del Method 06/03/25 11:15 97.6 F 55 L 20 118/43 L 100 06/03/25 10:00 55 L 06/03/25 08:12 97.8 F 56 L 20 130/51 L 100 06/03/25 08:06 95 Room Air 06/03/25 08:00 53 L 06/03/25 06:00 57 L 06/03/25 04:00 56 L 06/03/25 04:00 Room Air 06/03/25 04:00 97.5 F L 58 L 19 117/51 L 100 06/03/25 02:00 55 L 06/03/25 00:00 55 L 06/03/25 00:00 Room Air 06/02/25 23:58 97.5 F L 56 L 18 117/52 L 99 06/02/25 22:00 54 L 06/02/25 20:00 56 L 06/02/25 20:00 Room Air 06/02/25 19:58 97.3 F L 55 L 21 H 119/56 L 99 06/02/25 18:00 53 L 06/02/25 16:00 52 L 06/02/25 16:00 51 L Room Air 06/02/25 15:49 97.4 F L 54 L 20 122/50 L 100 Intake/Output Intake/Output: Intake & Output 05/31/25 06/01/25 06/02/25 06/03/25 23:59 23:59 23:59 23:59 Intake Total 50 1100 1010 1080 Output Total 550 1300 2150 Balance 50 248 -290 1070 Meds/Results Medications: Active Medications Generic Name Dose Route Start Last Admin Trade Name Wilfredq PRN Reason Stop Dose Admin Acetaminophen 650 mg 06/01/25 06:59 06/02/25 23:05 Acetaminophen 325 Mg Tablet PO 650 mg Q6H PRN Administration Pain (Scale Score 1-3) Apixaban 5 mg 06/01/25 09:00 06/03/25 08:16 Apixaban 5 Mg Tablet PO 5 mg Q12HR YUNIOR Administration Dextrose 12.5 gm 06/01/25 01:21 Dextrose 50% 25 Gm/50 Ml Syringe IV PUSH PRN PRN Hypoglycemia Protocol Glucagon 1 mg 06/01/25 01:21 Glucagon For Inj 1 Mg Vial IM PRN PRN Hypoglycemia Protocol Glucose 15 gm 06/01/25 01:21 Glucose Oral Gel 15 Gm Of Glucse In 37.5 Gm Tube PO PRN PRN Hypoglycemia Protocol Dextrose 1,000 mls @ 100 mls/hr 06/01/25 01:21 Dextrose 5% 1,000 Ml IVPB PRN PRN Hypoglycemia Protocol Insulin Aspart 4 - 8 units 06/01/25 08:00 06/03/25 11:45 Insulin Aspart (*Bkc) 100 Units/Ml SUB-Q Not Given TIDWM [facility] Protocol Insulin Aspart 9 units 06/01/25 08:00 06/03/25 11:47 Insulin Aspart (*Bkc) 100 Units/Ml 0.067 units/kg (9 units) 9 units SUB-Q Administration TIDWM YUNIOR Insulin Glargine 25 units 06/01/25 21:00 06/03/25 08:15 Insulin Glargine (*Bkc) 100 Units/Ml SUB-Q 25 units Q12HR YUNIOR Administration Lactulose 20 gm 06/03/25 09:00 06/03/25 08:16 Lactulose 20 Gm/30 Ml Udc PO 20 gm QAM YUNIOR Administration Melatonin 3 mg 06/01/25 21:00 06/02/25 20:39 Melatonin 3 Mg Tablet PO 3 mg HS YUNIOR Administration Nitroglycerin 0.4 mg 06/01/25 07:00 Nitroglycerin Sl 0.4 Mg Tablet SUBLINGUAL Q5MIN PRN Chest Pain Pantoprazole Sodium 40 mg 06/01/25 09:00 06/03/25 08:16 Pantoprazole 40 Mg Tablet PO 40 mg QAM YUNIOR Administration Polyethylene Glycol 17 gm 06/01/25 06:59 Polyethylene Glycol 3350 17 Gm Powd.Pack PO QAM PRN Constipation Polysaccharide Iron Complex 150 mg 06/01/25 09:00 06/03/25 08:16 Polysaccharide Iron Complex 150 Mg Capsule PO 150 mg DAILY YUNIOR Administration Ranolazine 500 mg 06/01/25 09:00 06/03/25 08:16 Ranolazine 500 Mg Tab.Er.12h PO 500 mg Q12HR YUNIOR Administration Senna/Docusate Sodium 1 tab 06/01/25 09:00 06/03/25 08:16 Senna/Docusate Sodium Tablet PO 1 tab BID YUNIOR Administration Sodium Chloride 1 gm 06/01/25 09:00 06/03/25 08:16 Sodium Chloride 1 Gm Tablet PO 1 gm BID YUNIOR Administration Sodium Zirconium Cyclosilicate 10 gm 06/01/25 10:00 06/03/25 11:48 Sodium Zirconium Cyclosilicate 10 Gm Powd.Pack PO 10 gm BID@1000,1800 YUNIOR Administration Radiology Results: ITS Impressions Chest X-Ray 05/31/25 20:59 IMPRESSION: 1. No acute cardiopulmonary disease. Hip/Pelvis X-Ray 06/01/25 06:51 Impression: 1: Possible fractures of the left acetabulum and inferior pubic ramus. Recommend correlation with CT. Head/Cervical Spine/Facial Bones CT 06/01/25 07:18 IMPRESSION: 1. No acute fracture of the facial bones or cervical spine. Head CT 06/01/25 07:22 IMPRESSION: 1. No acute intracranial abnormality. 2: Mild sinus disease. Renal Ultrasound 06/01/25 10:52 Impression: 1. Simple appearing right renal cyst. Abdomen Ultrasound 06/02/25 18:50 IMPRESSION: 1. Subtle finding liver surface nodularity with coarsened hepatic echotexture consistent with cirrhosis. 2. Minimal perihepatic ascites. Labs Labs: Laboratory Tests 06/03/25 03:51 06/03/25 03:51 Calcium 8.9 Magnesium 2.0 Total Bilirubin 1.1 AST 42 ALT 18 Alkaline Phosphatase 249 H Ammonia 67 H Total Protein 6.4 Albumin 3.1 L
[2025-06-03 11:34] LABS: Ferritin 116.00 ng/mL (11.1-264)
[2025-06-03] MEDS: SODIUM ZIRCONIUM CYCLOSILICATE 10 GM POWD.PACK PO (11:48)
--- NOTE | 2025-06-03 16:11 | PCOTNOTE ---
Pt currently declining getting OOB at this time due to fatigue and working with PT earlier this afternoon. Will continue to follow for OT evaluation.
--- NOTE | 2025-06-03 16:55 | P.PNIM_ITS ---
Progress Note: A&P Assessment and Plan (1) Acute hyperkalemia: Code(s): E87.5 - Hyperkalemia Status: Acute Assessment and Plan: Potassium 6.4 with bradycardia and hypotension EKG on admission showing junctional escape rhythm with ventricular bigeminy, LAD, LBBB. Hyperkalemia was treated appropriately. BP and HR stable after first round of treatment, patient admitted to IMU Repeat potassium 5.8 prompting a second round of treatment. Lokelma scheduled. Repeat potassium normal now He remains on Lokelma. Nephrology following and appreciate their input Continue low-potassium renal diet. Follow potassium. Decreased lokelma. (2) Symptomatic bradycardia: Code(s): R00.1 - Bradycardia, unspecified Status: Acute Assessment and Plan: As above. [place] junctional escape rhythm related to the severe hyperkalemia. Much improved but still with mild sinus bradycardia in the 50's. 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 Monitor on telemetry (3) AALIYAH (acute kidney injury): Code(s): N17.9 - Acute kidney failure, unspecified Status: Acute Assessment and Plan: Baseline creatinine is 1.1-1.2 range earlier this year. Creatinine 2.1 on admission UA shows 1+ protein but no blood or red blood cells. Urine eosinophils are negative. Protein to creatinine ratio is normal. Urine electrolytes are non prerenal. Nephrology consulted and appreciate their input. Cr slowly improveing. 1.64 today. Monitor urine output, electrolytes and renal function. (4) Atrial fibrillation: Qualifiers: Atrial fibrillation type: persistent (not longstanding) Qualified Code(s): I48.19 - Other persistent atrial fibrillation Code(s): I48.91 - Unspecified atrial fibrillation Status: Chronic Assessment and Plan: Patient has a history of atrial fibrillation. Heart rate stable and noted to be in sinus bradycardia at this time. Continue Eliquis. Holding Coreg (5) Closed fracture of left inferior pubic ramus: Code(s): S32.592A - Other specified fracture of left pubis, initial encounter for closed fracture Status: Acute Assessment and Plan: Patient had a fall prior to admission. Two-view x-ray of the right hip and pelvis shows possible fractures of the left acetabulum and inferior pubic rami. Pelvic CT ordered but not felt to be required by ortho so this was cancelled. Given his injury to his right foot, right foot x-ray ordered but cancelled as well. Unclear why he fell but felt related to hyperkalemia and bradyarrhythmia. UA is not consistent with UTI. Chest x-ray not consistent with pneumonia. B12, folate and TSH normal. Continue WBAT. Continue PT and OT (6) Acetabulum fracture, left: Code(s): S32.402A - Unspecified fracture of left acetabulum, initial encounter for closed fracture Status: Acute Assessment and Plan: As above (7) Diabetes mellitus with neuropathy: Qualifiers: Diabetes mellitus type: type 2 Diabetes mellitus watermaster insulin use: with fpc use Qualified Code(s): E11.40 - Type 2 diabetes mellitus with diabetic neuropathy, unspecified; Z79.4 - custodial (current) use of insulin Code(s): E11.40 - Type 2 diabetes mellitus with diabetic neuropathy, unspecified Status: Chronic Assessment and Plan: A1c 6.1%. The patient's blood glucose was reviewed on 06/02 Glucose remains well controlled. Continue AccuCheks covering with sliding scale. Hypoglycemia protocol available as needed. Was on Lantus 33u at night and Novolog 20U TID at meals. Insulin adjusted to Lantus 25U Q12 and Novolog 9u TID Continue current Lantus and scheduled NovoLog at mealtimes (8) Obstructive sleep apnea: Code(s): G47.33 - Obstructive sleep apnea (adult) (pediatric) Status: Chronic Assessment and Plan: Patient with known obstructive apnea but is unable to tolerate BiPAP. No ABG to evaluate Plan Cirrhosis - Concern for occult cirrhosis with macrocytosis, low plt, low WBC, elevated PT/PTT. B12, folate and TSH normal. Abd US shows subtle findings of liver surface nodularity with coarsened hepatic echotexture and minimal perihepatic ascites. Ammonia level 67. Could explain some of the mild confusion he has been having. Add Lactulose. Check for chronic viral hepatitis. Code status -full DVT prophylaxis -Eliquis Disp - PT/OT. Home with HH vs [facility] Subjective Date/time seen: 06/03/25 16:55 Interval history: 79yo male with CKD, CHF, CAD, DM, MARIANNA and pulm HTN admitted to the hospital for abnormal heart rhythm related to hyperkalemia along with AALIYAH and hypotension. Unsteady with walking. No CP or SOB. No hx of heavy alcohol use. No foot pain with walking. Exam Narrative: AF 97.6 117/43 57 20 100% ra Gen - NARD sitting up in chair HEENT - small ecchymosis right forehead. abrasion noted bridge of nose. Chest - minimal left base crackles o/w clear. nml RR CV - RRR. Tele showing PVCs Abd - Soft, obese, NT Ext - trace pedal edema Psych - Nml mood and affect Skin - Warm and dry. Objective Data Vital Signs Vital Signs: Vital Signs - 24 hr 06/02/25 18:00 06/02/25 19:58 06/02/25 20:00 Temperature 97.3 F L Pulse Rate 53 L 55 L Respiratory Rate 21 H Blood Pressure 119/56 L Pulse Oximetry 99 Oxygen Delivery Room Air 06/02/25 20:00 06/02/25 22:00 06/02/25 23:58 Temperature 97.5 F L Pulse Rate 56 L 54 L 56 L Respiratory Rate 18 Blood Pressure 117/52 L Pulse Oximetry 99 Oxygen Delivery 06/03/25 00:00 06/03/25 00:00 06/03/25 02:00 Temperature Pulse Rate 55 L 55 L Respiratory Rate Blood Pressure Pulse Oximetry Oxygen Delivery Room Air 06/03/25 04:00 06/03/25 04:00 06/03/25 04:00 Temperature 97.5 F L Pulse Rate 58 L 56 L Respiratory Rate 19 Blood Pressure 117/51 L Pulse Oximetry 100 Oxygen Delivery Room Air 06/03/25 06:00 06/03/25 08:00 06/03/25 08:06 Temperature Pulse Rate 57 L 53 L Respiratory Rate Blood Pressure Pulse Oximetry 95 Oxygen Delivery Room Air 06/03/25 08:12 06/03/25 10:00 06/03/25 11:45 Temperature 97.8 F 97.6 F Pulse Rate 56 L 55 L 55 L Respiratory Rate 20 20 Blood Pressure 130/51 L 118/43 L Pulse Oximetry 100 100 Oxygen Delivery 06/03/25 16:40 Temperature 97.6 F Pulse Rate 57 L Respiratory Rate 20 Blood Pressure 117/43 L Pulse Oximetry 100 Oxygen Delivery Intake/Output Intake/Output: Intake & Output 05/31/25 06/01/25 06/02/25 06/03/25 23:59 23:59 23:59 23:59 Intake Total 50 1100 1010 1080 Output Total 550 1300 2150 Balance 50 220 -772 -4543 Meds/Results Medications: Active Medications Generic Name Dose Route Start Last Admin Trade Name Freq PRN Reason Stop Dose Admin Acetaminophen 650 mg 06/01/25 06:59 06/02/25 23:05 Acetaminophen 325 Mg Tablet PO 650 mg Q6H PRN Administration Pain (Scale Score 1-3) Apixaban 5 mg 06/01/25 09:00 06/03/25 08:16 Apixaban 5 Mg Tablet PO 5 mg Q12HR YUNIOR Administration Dextrose 12.5 gm 06/01/25 01:21 Dextrose 50% 25 Gm/50 Ml Syringe IV PUSH PRN PRN Hypoglycemia Protocol Glucagon 1 mg 06/01/25 01:21 Glucagon For Inj 1 Mg Vial IM PRN PRN Hypoglycemia Protocol Glucose 15 gm 06/01/25 01:21 Glucose Oral Gel 15 Gm Of Glucse In 37.5 Gm Tube PO PRN PRN Hypoglycemia Protocol Dextrose 1,000 mls @ 100 mls/hr 06/01/25 01:21 Dextrose 5% 1,000 Ml IVPB PRN PRN Hypoglycemia Protocol Insulin Aspart 4 - 8 units 06/01/25 08:00 06/03/25 11:45 Insulin Aspart (*Bkc) 100 Units/Ml SUB-Q Not Given TIDWM [facility] Protocol Insulin Aspart 9 units 06/01/25 08:00 06/03/25 11:47 Insulin Aspart (*Bkc) 100 Units/Ml 0.067 units/kg (9 units) 9 units SUB-Q Administration TIDWM [facility] Insulin Glargine 25 units 06/01/25 21:00 06/03/25 08:15 Insulin Glargine (*Bkc) 100 Units/Ml SUB-Q 25 units Q12HR YUNIOR Administration Lactulose 20 gm 06/03/25 09:00 06/03/25 08:16 Lactulose 20 Gm/30 Ml Udc PO 20 gm QAM YUNIOR Administration Melatonin 3 mg 06/01/25 21:00 06/02/25 20:39 Melatonin 3 Mg Tablet PO 3 mg HS YUNIOR Administration Nitroglycerin 0.4 mg 06/01/25 07:00 Nitroglycerin Sl 0.4 Mg Tablet SUBLINGUAL Q5MIN PRN Chest Pain Pantoprazole Sodium 40 mg 06/01/25 09:00 06/03/25 08:16 Pantoprazole 40 Mg Tablet PO 40 mg QAM YUNIOR Administration Polyethylene Glycol 17 gm 06/01/25 06:59 Polyethylene Glycol 3350 17 Gm Powd.Pack PO QAM PRN Constipation Polysaccharide Iron Complex 150 mg 06/01/25 09:00 06/03/25 08:16 Polysaccharide Iron Complex 150 Mg Capsule PO 150 mg DAILY YUNIOR Administration Ranolazine 500 mg 06/01/25 09:00 06/03/25 08:16 Ranolazine 500 Mg Tab.Er.12h PO 500 mg Q12HR YUNIOR Administration Senna/Docusate Sodium 1 tab 06/01/25 09:00 06/03/25 08:16 Senna/Docusate Sodium Tablet PO 1 tab BID YUNIOR Administration Sodium Chloride 1 gm 06/01/25 09:00 06/03/25 08:16 Sodium Chloride 1 Gm Tablet PO 1 gm BID YUNIOR Administration Sodium Zirconium Cyclosilicate 10 gm 06/01/25 10:00 06/03/25 11:48 Sodium Zirconium Cyclosilicate 10 Gm Powd.Pack PO 10 gm BID@1000,1800 YUNIOR Administration Radiology Results: ITS Impressions Chest X-Ray 05/31/25 20:59 IMPRESSION: 1. No acute cardiopulmonary disease. Hip/Pelvis X-Ray 06/01/25 06:51 Impression: 1: Possible fractures of the left acetabulum and inferior pubic ramus. Recommend correlation with CT. Head/Cervical Spine/Facial Bones CT 06/01/25 07:18 IMPRESSION: 1. No acute fracture of the facial bones or cervical spine. Head CT 06/01/25 07:22 IMPRESSION: 1. No acute intracranial abnormality. 2: Mild sinus disease. Renal Ultrasound 06/01/25 10:52 Impression: 1. Simple appearing right renal cyst. Abdomen Ultrasound 06/02/25 18:50 IMPRESSION: 1. Subtle finding liver surface nodularity with coarsened hepatic echotexture consistent with cirrhosis. 2. Minimal perihepatic ascites. Labs Labs: Laboratory Results - last 24 hr 06/02/25 06/02/25 06/03/25 17:07 20:26 03:49 WBC RBC Hgb Hct MCV MCH MCHC RDW Plt Count MPV Immature Gran % (Auto) Neut % (Auto) Lymph % (Auto) [place] % (Auto) Eos % (Auto) Baso % (Auto) Lymph # (Auto) [place] # (Auto) Eos # (Auto) Baso # (Auto) Abs Immat Gran (auto) Absolute Neuts (auto) Absolute Nucleated RBC Nucleated RBC % Sodium 130 L Potassium 5.0 Chloride 98 Carbon Dioxide 24 Anion Gap 8 BUN 37 H Creatinine 1.80 H Estim Creat Clear Calc 43 Estimated GFR 37 L Glucose 126 H POC Capillary Glucose 146 H Calcium 8.9 Magnesium Iron 58 TIBC 360 % Saturation 16 L Ferritin 116.00 Total Bilirubin AST ALT Alkaline Phosphatase Ammonia Total Protein Albumin Hep Bs Antigen Negative Hep Bs Antibody Negative Hep B Core Total Ab Cancelled Hepatitis C Ab Screen Negative 06/03/25 06/03/25 06/03/25 03:51 07:35 11:21 WBC 3.5 L RBC 2.43 L Hgb 8.0 L Hct 24.9 L MCV 102.5 H MCH 32.9 MCHC 32.1 RDW 15.4 H Plt Count 137 L MPV 9.6 Immature Gran % (Auto) 0.8 H Neut % (Auto) 68.6 Lymph % (Auto) 10.2 L [place] % (Auto) 13.3 H Eos % (Auto) 6.5 H Baso % (Auto) 0.6 Lymph # (Auto) 0.36 L [place] # (Auto) 0.5 Eos # (Auto) 0.2 Baso # (Auto) 0.0 Abs Immat Gran (auto) 0.03 Absolute Neuts (auto) 2.4 Absolute Nucleated RBC 0.000 Nucleated RBC % 0.0 Sodium 129 L Potassium 4.7 Chloride 99 Carbon Dioxide 25 Anion Gap 5 BUN 36 H Creatinine 1.64 H Estim Creat Clear Calc 48 Estimated GFR 41 L Glucose 158 H POC Capillary Glucose 125 H 158 H Calcium 8.9 Magnesium 2.0 Iron TIBC % Saturation Ferritin Total Bilirubin 1.1 AST 42 ALT 18 Alkaline Phosphatase 249 H Ammonia 67 H Total Protein 6.4 Albumin 3.1 L Hep Bs Antigen Hep Bs Antibody Hep B Core Total Ab Hepatitis C Ab Screen 06/03/25 16:12 WBC RBC Hgb Hct MCV MCH MCHC RDW Plt Count MPV Immature Gran % (Auto) Neut % (Auto) Lymph % (Auto) [place] % (Auto) Eos % (Auto) Baso % (Auto) Lymph # (Auto) [place] # (Auto) Eos # (Auto) Baso # (Auto) Abs Immat Gran (auto) Absolute Neuts (auto) Absolute Nucleated RBC Nucleated RBC % Sodium Potassium Chloride Carbon Dioxide Anion Gap BUN Creatinine Estim Creat Clear Calc Estimated GFR Glucose POC Capillary Glucose 100 Calcium Magnesium Iron TIBC % Saturation Ferritin Total Bilirubin AST ALT Alkaline Phosphatase Ammonia Total Protein Albumin Hep Bs Antigen Hep Bs Antibody Hep B Core Total Ab Hepatitis C Ab Screen
[2025-06-03] MEDS: ACETAMINOPHEN 325 MG TABLET 650 MG PO (18:04)
[2025-06-03] MEDS: MELATONIN 3 MG TABLET PO (21:29)
[2025-06-04] VITALS (7 sets, daily range): BP systolic 132–148; BP diastolic 52–62; PULSE 52–65; RESP 18–22; TEMP 36.4–36.6; O2SAT 96–100
[2025-06-04] MEDS: ACETAMINOPHEN 325 MG TABLET 650 MG PO ×3 (00:33→17:54)
[2025-06-04 04:16] LABS: Hematocrit 27.3 % (42.0-52.0); Hemoglobin 8.6 g/dL (14.0-18.0); Immature Granulocyte Percent A 1.0 % (0-0.5); Lymphocytes Absolute Auto 0.41 K/mm3 (0.9-3.2); Mean Corpuscular HGB Conc 31.5 g/dl (32-36); Mean Corpuscular Hemoglobin 32.8 pg (26-34); Mean Corpuscular Volume 104.2 fl (80-100); Nucleated Red Blood Cells Absolute Auto 0.000 K/mm3 (0.0-0.012); Nucleated Red Blood Cells Perc 0.0 % (0.0-0.2); Platelet Count Result 147 k/mm3 (150-375); Red Blood Count 2.62 M/mm3 (4.6-6.20); White Blood Count 4.2 K/mm3 (4.5-10.0)
[2025-06-04 04:35] LABS: Alanine Aminotransferase 19 U/L (6-50); Albumin Level 3.2 g/dL (3.5-5.1); Alkaline Phosphatase 270 U/L (38-126); Anion Gap 4 mmol/L (4-12); Aspartate Amino Transferase 38 U/L (17-59); Bilirubin,Total 1.3 mg/dL (0.2-1.3); Blood Urea Nitrogen 35 mg/dL (9-20); Calcium 9.0 mg/dL (8.4-10.2); Carbon Dioxide 28 mmol/L (22-30); Chloride 99 mmol/L (98-107); Estimated CRCL calculation 59 ml/min; Estimated Glomerular Filt Rate 53; Glucose 133 mg/dL (65-110); Magnesium 2.1 mg/dL (1.6-2.3); Potassium 4.4 mmol/L (3.4-5.0); Sodium 131 mmol/L (137-145); Total Protein 6.7 g/dL (6.3-8.2)
[2025-06-04 07:09] LABS: Hep B Core Ab, Total Negative (Negative)
[2025-06-04] MEDS: SENNA/DOCUSATE SODIUM TABLET 1 TAB PO ×2 (08:56→17:53)
[2025-06-04] MEDS: RANOLAZINE 500 MG TAB.ER.12H PO ×2 (08:56→20:53)
[2025-06-04] MEDS: SODIUM CHLORIDE 1 GM TABLET PO ×2 (08:56→17:53)
[2025-06-04] MEDS: APIXABAN 5 MG TABLET PO ×2 (08:56→20:53)
[2025-06-04] MEDS: PANTOPRAZOLE 40 MG TABLET PO (08:56)
[2025-06-04] MEDS: LACTULOSE 20 GM/30 ML UDC PO (08:57)
[2025-06-04] MEDS: INSULIN GLARGINE (*BKC) 100 UNITS/ML 25 UNITS SUB-Q ×2 (08:57→20:53)
[2025-06-04] MEDS: SODIUM ZIRCONIUM CYCLOSILICATE 10 GM POWD.PACK PO (10:53)
--- NOTE | 2025-06-04 11:26 | P.PNNP_ITS ---
Progress Note: A&P Assessment and Plan (1) Hyperkalemia: Code(s): E87.5 - Hyperkalemia Status: Acute Assessment and Plan: * potassium is better. Lokelma reduced to once a day (2) Acute kidney injury: Code(s): N17.9 - Acute kidney failure, unspecified Status: Acute Assessment and Plan: * creatinine is improving near baseline now. * etiology not clear -- possibilities include: * bradycardia * relative hypotension * prerenal factors * other(?) * evaluation to date noted: * renal u/s without obstruction * CPK low * urine eosinophils negative * urine electrolytes non-prerenal * no significant proteinuria * diuretics on hold * probably ok to restart (this may further help maintain K+ level) * Check another creatinine tomorrow (3) Stage 3 chronic kidney disease: Code(s): N18.30 - Chronic kidney disease, stage 3 unspecified Status: Chronic Assessment and Plan: * baseline creatinine runs around 1.2 - 1.6mg/dl for the last few years * this causes this to fluctuate between CKD stage 3A and 3B * presumably due to diabetes, hypertension, vascular disease (CAD + CHF + hyperlipidemia), MARIANNA, obesity, and age-related disease (4) Symptomatic bradycardia: Code(s): R00.1 - Bradycardia, unspecified Status: Acute Assessment and Plan: * as noted in the ER * heart rate still in the 50s even with a good potassium. * Cardiology following the patient (5) Anemia: Qualifiers: Anemia type: unspecified type Qualified Code(s): D64.9 - Anemia, unspecified Code(s): D64.9 - Anemia, unspecified Status: Acute Assessment and Plan: * noted on admission * anemia studies with iron deficiency * on iron supplementation * hemoglobin seems to be running in the mid 8. It improved for the last 3 days in a (6) Hyponatremia: Code(s): E87.1 - Hypo-osmolality and hyponatremia Status: Acute Assessment and Plan: * noted in April 2025 * Continuing on salt tablets * sodium level stable between 129 and 131. (7) Atrial fibrillation: Qualifiers: Atrial fibrillation type: persistent (not longstanding) Qualified Code(s): I48.19 - Other persistent atrial fibrillation Code(s): I48.91 - Unspecified atrial fibrillation Status: Chronic Assessment and Plan: * known history * rate control strategy * on anticoagulation (8) Closed fracture of left inferior pubic ramus: Code(s): S32.592A - Other specified fracture of left pubis, initial encounter for closed fracture Status: Acute Assessment and Plan: * as suggested by x-rays in ER * Orthopedic Surgery recommendations noted * WBAT with PT/OT (9) Acetabulum fracture, left: Code(s): S32.402A - Unspecified fracture of left acetabulum, initial encounter for closed fracture Status: Acute Assessment and Plan: * as suggested by x-rays in ER * Orthopedic Surgery recommends WBAT with PT/OT (10) Diabetes mellitus with neuropathy: Qualifiers: Diabetes mellitus type: type 2 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 Subjective Date/time seen: 06/04/25 11:26 Interval history: patient feels okay. No chest pain or shortness of breath. He has a sore over his coccyx which he says is better but still hurts some Exam Narrative: General: elderly but WD/WN male in NAD Heart: normal S1 and S2; no rub Lungs: coarse and decreased at bases Abdomen: soft, nontender, nondistended, positive bowel sounds Extremities: no cyanosis or clubbing; trace - 1+ edema Skin: warm and intact Objective Data Vital Signs Vital Signs: Vital Signs - 24 hr 06/03/25 11:45 06/03/25 12:00 06/03/25 14:00 Temperature 97.6 F Pulse Rate 55 L 58 L 56 L Respiratory Rate 20 Blood Pressure 118/43 L Pulse Oximetry 100 Oxygen Delivery 06/03/25 16:00 06/03/25 16:40 06/03/25 18:00 Temperature 97.6 F Pulse Rate 61 57 L 57 L Respiratory Rate 20 Blood Pressure 117/43 L Pulse Oximetry 100 Oxygen Delivery 06/03/25 20:00 06/03/25 20:00 06/03/25 23:42 Temperature 97.5 F L Pulse Rate 58 L 57 L Respiratory Rate 17 Blood Pressure 122/51 L Pulse Oximetry 100 Oxygen Delivery Room Air 06/04/25 00:00 06/04/25 04:00 06/04/25 08:00 Temperature 97.6 F Pulse Rate 57 L 52 L 58 L Respiratory Rate 22 H Blood Pressure 136/61 Pulse Oximetry 97 Oxygen Delivery 06/04/25 08:00 06/04/25 08:00 06/04/25 08:49 Temperature Pulse Rate 56 L Respiratory Rate Blood Pressure Pulse Oximetry 97 Oxygen Delivery Room Air Room Air Intake/Output Intake/Output: Intake & Output 06/01/25 06/02/25 06/03/25 06/04/25 23:59 23:59 23:59 23:59 Intake Total 1100 1010 1620 1200 Output Total 550 1300 3200 890 Balance 550 290 -0980 310 Meds/Results Medications: Active Medications Generic Name Dose Route Start Last Admin Trade Name Wilfredq PRN Reason Stop Dose Admin Acetaminophen 650 mg 06/01/25 06:59 06/04/25 08:56 Acetaminophen 325 Mg Tablet PO 650 mg Q6H PRN Administration Pain (Scale Score 1-3) Apixaban 5 mg 06/01/25 09:00 06/04/25 08:56 Apixaban 5 Mg Tablet PO 5 mg Q12HR YUNIOR Administration Dextrose 12.5 gm 06/01/25 01:21 Dextrose 50% 25 Gm/50 Ml Syringe IV PUSH PRN PRN Hypoglycemia Protocol Glucagon 1 mg 06/01/25 01:21 Glucagon For Inj 1 Mg Vial IM PRN PRN Hypoglycemia Protocol Glucose 15 gm 06/01/25 01:21 Glucose Oral Gel 15 Gm Of Glucse In 37.5 Gm Tube PO PRN PRN Hypoglycemia Protocol Dextrose 1,000 mls @ 100 mls/hr 06/01/25 01:21 Dextrose 5% 1,000 Ml IVPB PRN PRN Hypoglycemia Protocol Insulin Aspart 4 - 8 units 06/01/25 08:00 06/04/25 08:55 Insulin Aspart (*Bkc) 100 Units/Ml SUB-Q Not Given TIDWM [facility] Protocol Insulin Glargine 25 units 06/01/25 21:00 06/04/25 08:57 Insulin Glargine (*Bkc) 100 Units/Ml SUB-Q 25 units Q12HR YUNIOR Administration Lactulose 20 gm 06/03/25 09:00 06/04/25 08:57 Lactulose 20 Gm/30 Ml Udc PO 20 gm QAM YUNIOR Administration Melatonin 3 mg 06/01/25 21:00 06/03/25 21:29 Melatonin 3 Mg Tablet PO 3 mg HS YUNIOR Administration Nitroglycerin 0.4 mg 06/01/25 07:00 Nitroglycerin Sl 0.4 Mg Tablet SUBLINGUAL Q5MIN PRN Chest Pain Pantoprazole Sodium 40 mg 06/01/25 09:00 06/04/25 08:56 Pantoprazole 40 Mg Tablet PO 40 mg QAM YUNIOR Administration Polyethylene Glycol 17 gm 06/01/25 06:59 Polyethylene Glycol 3350 17 Gm Powd.Pack PO QAM PRN Constipation Polysaccharide Iron Complex 150 mg 06/01/25 09:00 06/04/25 08:56 Polysaccharide Iron Complex 150 Mg Capsule PO 150 mg DAILY YUNIOR Administration Ranolazine 500 mg 06/01/25 09:00 06/04/25 08:56 Ranolazine 500 Mg Tab.Er.12h PO 500 mg Q12HR YUNIOR Administration Senna/Docusate Sodium 1 tab 06/01/25 09:00 06/04/25 08:56 Senna/Docusate Sodium Tablet PO 1 tab BID YUNIOR Administration Sodium Chloride 1 gm 06/01/25 09:00 06/04/25 08:56 Sodium Chloride 1 Gm Tablet PO 1 gm BID YUNIOR Administration Sodium Zirconium Cyclosilicate 10 gm 06/04/25 10:00 06/04/25 10:53 Sodium Zirconium Cyclosilicate 10 Gm Powd.Pack PO 10 gm DAILY@1000 YUNIOR Administration Radiology Results: ITS Impressions Chest X-Ray 05/31/25 20:59 IMPRESSION: 1. No acute cardiopulmonary disease. Hip/Pelvis X-Ray 06/01/25 06:51 Impression: 1: Possible fractures of the left acetabulum and inferior pubic ramus. Recommend correlation with CT. Head/Cervical Spine/Facial Bones CT 06/01/25 07:18 IMPRESSION: 1. No acute fracture of the facial bones or cervical spine. Head CT 06/01/25 07:22 IMPRESSION: 1. No acute intracranial abnormality. 2: Mild sinus disease. Renal Ultrasound 06/01/25 10:52 Impression: 1. Simple appearing right renal cyst. Abdomen Ultrasound 06/02/25 18:50 IMPRESSION: 1. Subtle finding liver surface nodularity with coarsened hepatic echotexture consistent with cirrhosis. 2. Minimal perihepatic ascites. Labs Labs: Laboratory Results - last 24 hr 06/03/25 06/03/25 06/03/25 03:49 11:21 16:12 WBC RBC Hgb Hct MCV MCH MCHC RDW Plt Count MPV Immature Gran % (Auto) Neut % (Auto) Lymph % (Auto) [place] % (Auto) Eos % (Auto) Baso % (Auto) Lymph # (Auto) [place] # (Auto) Eos # (Auto) Baso # (Auto) Abs Immat Gran (auto) Absolute Neuts (auto) Absolute Nucleated RBC Nucleated RBC % Sodium Potassium Chloride Carbon Dioxide Anion Gap BUN Creatinine Estim Creat Clear Calc Estimated GFR Glucose POC Capillary Glucose 158 H 100 Calcium Magnesium Ferritin 116.00 Total Bilirubin AST ALT Alkaline Phosphatase Total Protein Albumin Hep B Core Total Ab Negative 06/03/25 06/04/25 06/04/25 20:02 03:50 06:50 WBC 4.2 L RBC 2.62 L Hgb 8.6 L Hct 27.3 L MCV 104.2 H MCH 32.8 MCHC 31.5 L RDW 15.6 H Plt Count 147 L MPV 9.7 Immature Gran % (Auto) 1.0 H Neut % (Auto) 65.5 Lymph % (Auto) 9.9 L [place] % (Auto) 15.6 H Eos % (Auto) 7.5 H Baso % (Auto) 0.5 Lymph # (Auto) 0.41 L [place] # (Auto) 0.7 H Eos # (Auto) 0.3 Baso # (Auto) 0.0 Abs Immat Gran (auto) 0.04 H Absolute Neuts (auto) 2.7 Absolute Nucleated RBC 0.000 Nucleated RBC % 0.0 Sodium 131 L Potassium 4.4 Chloride 99 Carbon Dioxide 28 Anion Gap 4 BUN 35 H Creatinine 1.31 H Estim Creat Clear Calc 59 Estimated GFR 53 L Glucose 133 H POC Capillary Glucose 114 H 140 H Calcium 9.0 Magnesium 2.1 Ferritin Total Bilirubin 1.3 AST 38 ALT 19 Alkaline Phosphatase 270 H Total Protein 6.7 Albumin 3.2 L Hep B Core Total Ab
--- NOTE | 2025-06-04 15:52 | PM.IMPN ---
Progress Note: A&P Assessment and Plan (1) Acute hyperkalemia: Code(s): E87.5 - Hyperkalemia Status: Acute Assessment and Plan: Potassium 6.4 with bradycardia and hypotension EKG on admission showing junctional escape rhythm with ventricular bigeminy, LAD, LBBB. Hyperkalemia related to AALIYAH and was treated appropriately. BP and HR stable after first round of treatment, patient admitted to IMU Repeat potassium 5.8 prompting a second round of treatment. Lokelma scheduled. Repeat potassium normal now so Lokelma dose decreased. Potassium remains normal so will stop lokelma. Nephrology following and appreciate their input Continue low-potassium renal diet. Follow potassium. Stop lokelma. Resume lasix (2) Symptomatic bradycardia: Code(s): R00.1 - Bradycardia, unspecified Status: Acute Assessment and Plan: As above. [place] junctional escape rhythm related to the severe hyperkalemia. Much improved but still with mild sinus bradycardia mostly in the 50's. 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 Monitor on telemetry (3) AALIYAH (acute kidney injury): Code(s): N17.9 - Acute kidney failure, unspecified Status: Acute Assessment and Plan: Baseline creatinine is 1.1-1.2 range earlier this year. Creatinine 2.1 on admission UA shows 1+ protein but no blood or red blood cells. Urine eosinophils are negative. Protein to creatinine ratio is normal. Urine electrolytes are non prerenal. Nephrology consulted and appreciate their input. Cr slowly improving. 1.3 today. Monitor urine output, electrolytes and renal function. Nephrology felt okay to resume Lasix (4) Atrial fibrillation: Qualifiers: Atrial fibrillation type: persistent (not longstanding) Qualified Code(s): I48.19 - Other persistent atrial fibrillation Code(s): I48.91 - Unspecified atrial fibrillation Status: Chronic Assessment and Plan: Patient has a history of atrial fibrillation. Heart rate stable and noted to be in sinus bradycardia Continue Eliquis. Holding Coreg (5) Closed fracture of left inferior pubic ramus: Code(s): S32.592A - Other specified fracture of left pubis, initial encounter for closed fracture Status: Acute Assessment and Plan: Patient had a fall prior to admission. Two-view x-ray of the right hip and pelvis shows possible fractures of the left acetabulum and inferior pubic rami. Pelvic CT ordered but not felt to be required by ortho so this was cancelled. Given his injury to his right foot, right foot x-ray ordered but cancelled as well. Unclear why he fell but felt related to hyperkalemia and bradyarrhythmia. UA is not consistent with UTI. Chest x-ray not consistent with pneumonia. B12, folate and TSH normal. Continue WBAT. 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 The patient's blood glucose was reviewed on 06/04 Was on Lantus 33u at night and Novolog 20U TID at meals. Insulin adjusted to Lantus 25U Q12 and Novolog 9u TID Glucose was too well controlled so meal time insulin stopped. Glucose remains well controlled now just with Lantus. Continue AccuCheks covering with sliding scale. Hypoglycemia protocol available as needed. Continue current Lantus dose (8) Obstructive sleep apnea: Code(s): G47.33 - Obstructive sleep apnea (adult) (pediatric) Status: Chronic Assessment and Plan: Patient with known obstructive apnea but is unable to tolerate BiPAP. No ABG to evaluate Plan Cirrhosis - Concern for occult cirrhosis with macrocytosis, low plt, low WBC, elevated PT/PTT. B12, folate and TSH normal. Abd US shows subtle findings of liver surface nodularity with coarsened hepatic echotexture and minimal perihepatic ascites. Ammonia level 67. Could explain some of the mild confusion he has been having. Added Lactulose. Chronic viral hepatitis w/u negative. GI evaluation after discharge. Elevated Trop - Troponin up to 0.04 felt related to bradycardia and junctional rhythm. Cardiology following. Code status -full DVT prophylaxis -Eliquis Disp - PT/OT. Home with HH vs BH[facility]AR Subjective Date/time seen: 06/04/25 15:52 Interval history: 79yo male with CKD, CHF, CAD, DM, MARIANNA and pulm HTN admitted to the hospital for abnormal heart rhythm related to hyperkalemia along with AALIYAH and hypotension. Slept poorly. No CP or SOB. Walking to BR. No [place]. +BMs. No cough Exam Narrative: AF 97.6 148/57 63 18 99% ra Gen - NARD HEENT - small ecchymosis right forehead. abrasion noted bridge of nose. Chest - L>R basilar crackles o/w clear. nml RR CV - RRR. Tele showing PVCs Abd - Soft, obese, NT Ext - trace pedal edema Psych - Nml mood and affect Skin - Warm and dry. Objective Data Vital Signs Vital Signs: Vital Signs - 24 hr 06/03/25 16:00 06/03/25 16:40 06/03/25 18:00 Temperature 97.6 F Pulse Rate 61 57 L 57 L Respiratory Rate 20 Blood Pressure 117/43 L Pulse Oximetry 100 Oxygen Delivery 06/03/25 20:00 06/03/25 20:00 06/03/25 23:42 Temperature 97.5 F L Pulse Rate 58 L 57 L Respiratory Rate 17 Blood Pressure 122/51 L Pulse Oximetry 100 Oxygen Delivery Room Air 06/04/25 00:00 06/04/25 04:00 06/04/25 08:00 Temperature 97.6 F Pulse Rate 57 L 52 L 58 L Respiratory Rate 22 H Blood Pressure 136/61 Pulse Oximetry 97 Oxygen Delivery 06/04/25 08:00 06/04/25 08:00 06/04/25 08:49 Temperature Pulse Rate 56 L Respiratory Rate Blood Pressure Pulse Oximetry 97 Oxygen Delivery Room Air Room Air 06/04/25 12:00 Temperature 97.6 F Pulse Rate 63 Respiratory Rate 18 Blood Pressure 148/57 H Pulse Oximetry 99 Oxygen Delivery Intake/Output Intake/Output: Intake & Output 06/01/25 06/02/25 06/03/25 06/04/25 23:59 23:59 23:59 23:59 Intake Total 1100 1010 1620 1760 Output Total 550 1300 3200 890 Balance 550 290 -1580 870 Meds/Results Medications: Active Medications Generic Name Dose Route Start Last Admin Trade Name Freq PRN Reason Stop Dose Admin Acetaminophen 650 mg 06/01/25 06:59 06/04/25 08:56 Acetaminophen 325 Mg Tablet PO 650 mg Q6H PRN Administration Pain (Scale Score 1-3) Apixaban 5 mg 06/01/25 09:00 06/04/25 08:56 Apixaban 5 Mg Tablet PO 5 mg Q12HR YUNIOR Administration Dextrose 12.5 gm 06/01/25 01:21 Dextrose 50% 25 Gm/50 Ml Syringe IV PUSH PRN PRN Hypoglycemia Protocol Glucagon 1 mg 06/01/25 01:21 Glucagon For Inj 1 Mg Vial IM PRN PRN Hypoglycemia Protocol Glucose 15 gm 06/01/25 01:21 Glucose Oral Gel 15 Gm Of Glucse In 37.5 Gm Tube PO PRN PRN Hypoglycemia Protocol Dextrose 1,000 mls @ 100 mls/hr 06/01/25 01:21 Dextrose 5% 1,000 Ml IVPB PRN PRN Hypoglycemia Protocol Insulin Aspart 4 - 8 units 06/01/25 08:00 06/04/25 08:55 Insulin Aspart (*Bkc) 100 Units/Ml SUB-Q Not Given TIDWM YUNIOR Protocol Insulin Glargine 25 units 06/01/25 21:00 06/04/25 08:57 Insulin Glargine (*Bkc) 100 Units/Ml SUB-Q 25 units Q12HR YUNIOR Administration Lactulose 20 gm 06/03/25 09:00 06/04/25 08:57 Lactulose 20 Gm/30 Ml Udc PO 20 gm QAM YUNIOR Administration Melatonin 3 mg 06/01/25 21:00 06/03/25 21:29 Melatonin 3 Mg Tablet PO 3 mg HS YUNIOR Administration Nitroglycerin 0.4 mg 06/01/25 07:00 Nitroglycerin Sl 0.4 Mg Tablet SUBLINGUAL Q5MIN PRN Chest Pain Pantoprazole Sodium 40 mg 06/01/25 09:00 06/04/25 08:56 Pantoprazole 40 Mg Tablet PO 40 mg QAM YUNIOR Administration Polyethylene Glycol 17 gm 06/01/25 06:59 Polyethylene Glycol 3350 17 Gm Powd.Pack PO QAM PRN Constipation Polysaccharide Iron Complex 150 mg 06/01/25 09:00 06/04/25 08:56 Polysaccharide Iron Complex 150 Mg Capsule PO 150 mg DAILY YUNIOR Administration Ranolazine 500 mg 06/01/25 09:00 06/04/25 08:56 Ranolazine 500 Mg Tab.Er.12h PO 500 mg Q12HR YUNIOR Administration Senna/Docusate Sodium 1 tab 06/01/25 09:00 06/04/25 08:56 Senna/Docusate Sodium Tablet PO 1 tab BID YUNIOR Administration Sodium Chloride 1 gm 06/01/25 09:00 06/04/25 08:56 Sodium Chloride 1 Gm Tablet PO 1 gm BID YUNIOR Administration Sodium Zirconium Cyclosilicate 10 gm 06/04/25 10:00 06/04/25 10:53 Sodium Zirconium Cyclosilicate 10 Gm Powd.Pack PO 10 gm DAILY@1000 YUNIOR Administration Radiology Results: ITS Impressions Chest X-Ray 05/31/25 20:59 IMPRESSION: 1. No acute cardiopulmonary disease. Hip/Pelvis X-Ray 06/01/25 06:51 Impression: 1: Possible fractures of the left acetabulum and inferior pubic ramus. Recommend correlation with CT. Head/Cervical Spine/Facial Bones CT 06/01/25 07:18 IMPRESSION: 1. No acute fracture of the facial bones or cervical spine. Head CT 06/01/25 07:22 IMPRESSION: 1. No acute intracranial abnormality. 2: Mild sinus disease. Renal Ultrasound 06/01/25 10:52 Impression: 1. Simple appearing right renal cyst. Abdomen Ultrasound 06/02/25 18:50 IMPRESSION: 1. Subtle finding liver surface nodularity with coarsened hepatic echotexture consistent with cirrhosis. 2. Minimal perihepatic ascites. Labs Labs: Laboratory Results - last 24 hr 06/03/25 06/03/25 06/03/25 03:49 16:12 20:02 WBC RBC Hgb Hct MCV MCH MCHC RDW Plt Count MPV Immature Gran % (Auto) Neut % (Auto) Lymph % (Auto) [place] % (Auto) Eos % (Auto) Baso % (Auto) Lymph # (Auto) [place] # (Auto) Eos # (Auto) Baso # (Auto) Abs Immat Gran (auto) Absolute Neuts (auto) Absolute Nucleated RBC Nucleated RBC % Sodium Potassium Chloride Carbon Dioxide Anion Gap BUN Creatinine Estim Creat Clear Calc Estimated GFR Glucose POC Capillary Glucose 100 114 H Calcium Magnesium Total Bilirubin AST ALT Alkaline Phosphatase Total Protein Albumin Hep B Core Total Ab Negative 06/04/25 06/04/25 06/04/25 03:50 06:50 11:47 WBC 4.2 L RBC 2.62 L Hgb 8.6 L Hct 27.3 L MCV 104.2 H MCH 32.8 MCHC 31.5 L RDW 15.6 H Plt Count 147 L MPV 9.7 Immature Gran % (Auto) 1.0 H Neut % (Auto) 65.5 Lymph % (Auto) 9.9 L [place] % (Auto) 15.6 H Eos % (Auto) 7.5 H Baso % (Auto) 0.5 Lymph # (Auto) 0.41 L [place] # (Auto) 0.7 H Eos # (Auto) 0.3 Baso # (Auto) 0.0 Abs Immat Gran (auto) 0.04 H Absolute Neuts (auto) 2.7 Absolute Nucleated RBC 0.000 Nucleated RBC % 0.0 Sodium 131 L Potassium 4.4 Chloride 99 Carbon Dioxide 28 Anion Gap 4 BUN 35 H Creatinine 1.31 H Estim Creat Clear Calc 59 Estimated GFR 53 L Glucose 133 H POC Capillary Glucose 140 H 164 H Calcium 9.0 Magnesium 2.1 Total Bilirubin 1.3 AST 38 ALT 19 Alkaline Phosphatase 270 H Total Protein 6.7 Albumin 3.2 L Hep B Core Total Ab
[2025-06-04] MEDS: FUROSEMIDE 20 MG TABLET PO (17:53)
[2025-06-04] MEDS: MELATONIN 3 MG TABLET PO (20:53)
[2025-06-05] VITALS (9 sets, daily range): BP systolic 133–137; BP diastolic 52–60; PULSE 60–69; RESP 18–20; TEMP 35.6–36.9; O2SAT 100
[2025-06-05 05:13] LABS: Hematocrit 26.4 % (42.0-52.0); Hemoglobin 8.5 g/dL (14.0-18.0); Immature Granulocyte Percent A 0.6 % (0-0.5); Lymphocytes Absolute Auto 0.40 K/mm3 (0.9-3.2); Mean Corpuscular HGB Conc 32.2 g/dl (32-36); Mean Corpuscular Hemoglobin 33.3 pg (26-34); Mean Corpuscular Volume 103.5 fl (80-100); Nucleated Red Blood Cells Absolute Auto 0.000 K/mm3 (0.0-0.012); Nucleated Red Blood Cells Perc 0.0 % (0.0-0.2); Platelet Count Result 150 k/mm3 (150-375); Red Blood Count 2.55 M/mm3 (4.6-6.20); White Blood Count 4.7 K/mm3 (4.5-10.0)
[2025-06-05 05:40] LABS: Alanine Aminotransferase 19 U/L (6-50); Albumin Level 3.0 g/dL (3.5-5.1); Alkaline Phosphatase 261 U/L (38-126); Anion Gap 5 mmol/L (4-12); Aspartate Amino Transferase 39 U/L (17-59); Bilirubin,Total 1.3 mg/dL (0.2-1.3); Blood Urea Nitrogen 32 mg/dL (9-20); Calcium 9.0 mg/dL (8.4-10.2); Carbon Dioxide 25 mmol/L (22-30); Chloride 100 mmol/L (98-107); Estimated CRCL calculation 73 ml/min; Estimated Glomerular Filt Rate > 60; Glucose 210 mg/dL (65-110); Magnesium 1.8 mg/dL (1.6-2.3); Potassium 4.3 mmol/L (3.4-5.0); Sodium 130 mmol/L (137-145); Total Protein 6.4 g/dL (6.3-8.2)
[2025-06-05] MEDS: SODIUM CHLORIDE 1 GM TABLET PO ×2 (09:00→17:24)
[2025-06-05] MEDS: RANOLAZINE 500 MG TAB.ER.12H PO ×2 (09:00→20:54)
[2025-06-05] MEDS: PANTOPRAZOLE 40 MG TABLET PO (09:01)
[2025-06-05] MEDS: APIXABAN 5 MG TABLET PO ×2 (09:01→20:56)
[2025-06-05] MEDS: FUROSEMIDE 40 MG TABLET PO (09:01)
[2025-06-05] MEDS: ACETAMINOPHEN 325 MG TABLET 650 MG PO ×3 (09:01→20:55)
[2025-06-05] MEDS: SENNA/DOCUSATE SODIUM TABLET 1 TAB PO (09:01)
[2025-06-05] MEDS: LACTULOSE 20 GM/30 ML UDC PO (09:01)
[2025-06-05] MEDS: INSULIN GLARGINE (*BKC) 100 UNITS/ML 25 UNITS SUB-Q ×2 (09:03→20:56)
--- NOTE | 2025-06-05 11:06 | P.PNIM_ITS ---
Progress Note: A&P Assessment and Plan (1) Acute hyperkalemia: Code(s): E87.5 - Hyperkalemia Status: Acute Assessment and Plan: Potassium 6.4 with bradycardia and hypotension EKG on admission showing junctional escape rhythm with ventricular bigeminy, LAD, LBBB. Hyperkalemia related to AALIYAH and was treated appropriately. BP and HR stable after first round of treatment, patient admitted to IMU Repeat potassium 5.8 prompting a second round of treatment. Lokelma scheduled. Repeat potassium normal now so Lokelma dose decreased then discontinued. Lasix resumed. Nephrology following and appreciate their input Continue low-potassium renal diet. Follow potassium. (2) Symptomatic bradycardia: Code(s): R00.1 - Bradycardia, unspecified Status: Acute Assessment and Plan: As above. Coreg held. [place] junctional escape rhythm related to the severe hyperkalemia. 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 Coreg remains on hold. Okay to stop telemetry (3) AALIYAH (acute kidney injury): Code(s): N17.9 - Acute kidney failure, unspecified Status: Acute Assessment and Plan: Baseline creatinine is 1.1-1.2 range earlier this year. Creatinine 2.1 on admission UA shows 1+ protein but no blood or red blood cells. Urine eosinophils are negative. Protein to creatinine ratio is normal. Urine electrolytes are non prerenal. Nephrology consulted and appreciate their input. Cr slowly improving. 1.05 today. Tolerating Lasix Monitor urine output, electrolytes and renal function. (4) Atrial fibrillation: Qualifiers: Atrial fibrillation type: persistent (not longstanding) Qualified Code(s): I48.19 - Other persistent atrial fibrillation Code(s): I48.91 - Unspecified atrial fibrillation Status: Chronic Assessment and Plan: Patient has a history of atrial fibrillation. Heart rate stable and noted to have sinus mechanism Continue Eliquis. Continue to hold Coreg (5) Closed fracture of left inferior pubic ramus: Code(s): S32.592A - Other specified fracture of left pubis, initial encounter for closed fracture Status: Acute Assessment and Plan: Patient had a fall prior to admission. Two-view x-ray of the right hip and pelvis shows possible fractures of the left acetabulum and inferior pubic rami. Pelvic CT ordered but not felt to be required by ortho so this was cancelled. Given his injury to his right foot, right foot x-ray ordered but cancelled as well. Fall felt related to hyperkalemia and bradyarrhythmia. UA is not consistent with UTI. Chest x-ray not consistent with pneumonia. B12, folate and TSH normal. Continue WBAT. Continue PT and OT (6) Acetabulum fracture, left: Code(s): S32.402A - Unspecified fracture of left acetabulum, initial encounter for closed fracture Status: Acute Assessment and Plan: As above (7) Diabetes mellitus with neuropathy: Qualifiers: Diabetes mellitus type: type 2 Diabetes mellitus intermediate manager insulin use: with chcf use Qualified Code(s): E11.40 - Type 2 diabetes mellitus with diabetic neuropathy, unspecified; Z79.4 - director long term care (current) use of insulin Code(s): E11.40 - Type 2 diabetes mellitus with diabetic neuropathy, unspecified Status: Chronic Assessment and Plan: A1c 6.1%. The patient's blood glucose was reviewed on 06/05 Was on Lantus 33u at night and Novolog 20U TID at meals. Insulin adjusted to Lantus 25U Q12 and Novolog 9u TID Glucose was too well controlled so meal time insulin stopped. Glucose remains well controlled now just with Lantus. Continue AccuCheks covering with sliding scale. Hypoglycemia protocol available as needed. Continue current Lantus dose (8) Obstructive sleep apnea: Code(s): G47.33 - Obstructive sleep apnea (adult) (pediatric) Status: Chronic Assessment and Plan: Patient with known obstructive apnea but is unable to tolerate BiPAP. No ABG to evaluate Plan Cirrhosis - Concern for occult cirrhosis with macrocytosis, low plt, low WBC, elevated PT/PTT. B12, folate and TSH normal. Abd US shows subtle findings of liver surface nodularity with coarsened hepatic echotexture and minimal perihepatic ascites. Ammonia level 67. Could explain some of the mild confusion he has been having. Added Lactulose. Chronic viral hepatitis w/u negative. GI evaluation after discharge. Elevated Trop - Troponin up to 0.04 felt related to bradycardia and junctional rhythm. Cardiology following. Code status -full DVT prophylaxis -Eliquis Disp - PT/OT. Home with HH vs BH[facility]AR. Patient ready for discharge Subjective Date/time seen: 06/05/25 11:06 Interval history: 79yo male with CKD, CHF, CAD, DM, MARIANNA and pulm HTN admitted to the hospital for abnormal heart rhythm related to hyperkalemia along with AALIYAH and hypotension. No CP or SOB. +BM and some are loose. Walking to bathroom but feels very weak. Exam Narrative: AF 97.7 134/54 65 18 100% ra Gen - NARD HEENT - small ecchymosis right forehead. abrasion noted bridge of nose. Chest - lungs clear anteriorly. CV - RRR. Tele showing PVCs Abd - Soft, obese, NT Ext - trace-1+ pedal edema Psych - Nml mood and affect Skin - Warm and dry. bruising noted about distal right foot. Objective Data Vital Signs Vital Signs: Vital Signs - 24 hr 06/04/25 12:00 06/04/25 12:00 06/04/25 16:00 Temperature 97.6 F 97.5 F L Pulse Rate 63 61 65 Respiratory Rate 18 18 Blood Pressure 148/57 H 148/62 H Pulse Oximetry 99 96 Oxygen Delivery 06/04/25 16:00 06/04/25 20:00 06/04/25 20:47 Temperature 97.8 F Pulse Rate 60 61 64 Respiratory Rate 18 Blood Pressure 132/52 L Pulse Oximetry 100 Oxygen Delivery 06/05/25 00:00 06/05/25 04:00 06/05/25 04:14 Temperature 97.7 F Pulse Rate 66 66 69 Respiratory Rate 18 Blood Pressure 134/54 L Pulse Oximetry 100 Oxygen Delivery 06/05/25 08:00 06/05/25 08:00 Temperature Pulse Rate 65 Respiratory Rate Blood Pressure Pulse Oximetry Oxygen Delivery Room Air Intake/Output Intake/Output: Intake & Output 06/02/25 06/03/25 06/04/25 06/05/25 23:59 23:59 23:59 23:59 Intake Total 1010 1620 2600 1130 Output Total 1300 3200 1890 1700 Balance -290 -1580 672 -570 Meds/Results Medications: Active Medications Generic Name Dose Route Start Last Admin Trade Name Freq PRN Reason Stop Dose Admin Acetaminophen 650 mg 06/01/25 06:59 06/05/25 09:01 Acetaminophen 325 Mg Tablet PO 650 mg Q6H PRN Administration Pain (Scale Score 1-3) Apixaban 5 mg 06/01/25 09:00 06/05/25 09:01 Apixaban 5 Mg Tablet PO 5 mg Q12HR YUNIOR Administration Dextrose 12.5 gm 06/01/25 01:21 Dextrose 50% 25 Gm/50 Ml Syringe IV PUSH PRN PRN Hypoglycemia Protocol Furosemide 40 mg 06/05/25 09:00 06/05/25 09:01 Furosemide 40 Mg Tablet PO 40 mg DAILY YUNIOR Administration Glucagon 1 mg 06/01/25 01:21 Glucagon For Inj 1 Mg Vial IM PRN PRN Hypoglycemia Protocol Glucose 15 gm 06/01/25 01:21 Glucose Oral Gel 15 Gm Of Glucse In 37.5 Gm Tube PO PRN PRN Hypoglycemia Protocol Dextrose 1,000 mls @ 100 mls/hr 06/01/25 01:21 Dextrose 5% 1,000 Ml IVPB PRN PRN Hypoglycemia Protocol Insulin Aspart 4 - 8 units 06/01/25 08:00 06/05/25 08:45 Insulin Aspart (*Bkc) 100 Units/Ml SUB-Q Not Given TIDWM YUNIOR Protocol Insulin Glargine 25 units 06/01/25 21:00 06/05/25 09:03 Insulin Glargine (*Bkc) 100 Units/Ml SUB-Q 25 units Q12HR YUNIOR Administration Lactulose 20 gm 06/03/25 09:00 06/05/25 09:01 Lactulose 20 Gm/30 Ml Udc PO 20 gm QAM YUNIOR Administration Melatonin 3 mg 06/01/25 21:00 06/04/25 20:53 Melatonin 3 Mg Tablet PO 3 mg HS YUNIOR Administration Nitroglycerin 0.4 mg 06/01/25 07:00 Nitroglycerin Sl 0.4 Mg Tablet SUBLINGUAL Q5MIN PRN Chest Pain Pantoprazole Sodium 40 mg 06/01/25 09:00 06/05/25 09:01 Pantoprazole 40 Mg Tablet PO 40 mg QAM YUNIOR Administration Polyethylene Glycol 17 gm 06/01/25 06:59 Polyethylene Glycol 3350 17 Gm Powd.Pack PO QAM PRN Constipation Polysaccharide Iron Complex 150 mg 06/01/25 09:00 06/05/25 09:01 Polysaccharide Iron Complex 150 Mg Capsule PO 150 mg DAILY YUNIOR Administration Ranolazine 500 mg 06/01/25 09:00 06/05/25 09:00 Ranolazine 500 Mg Tab.Er.12h PO 500 mg Q12HR YUNIOR Administration Senna/Docusate Sodium 1 tab 06/01/25 09:00 06/05/25 09:01 Senna/Docusate Sodium Tablet PO 1 tab BID YUNIOR Administration Sodium Chloride 1 gm 06/01/25 09:00 06/05/25 09:00 Sodium Chloride 1 Gm Tablet PO 1 gm BID YUNIOR Administration Radiology Results: ITS Impressions Chest X-Ray 05/31/25 20:59 IMPRESSION: 1. No acute cardiopulmonary disease. Hip/Pelvis X-Ray 06/01/25 06:51 Impression: 1: Possible fractures of the left acetabulum and inferior pubic ramus. Recommend correlation with CT. Head/Cervical Spine/Facial Bones CT 06/01/25 07:18 IMPRESSION: 1. No acute fracture of the facial bones or cervical spine. Head CT 06/01/25 07:22 IMPRESSION: 1. No acute intracranial abnormality. 2: Mild sinus disease. Renal Ultrasound 06/01/25 10:52 Impression: 1. Simple appearing right renal cyst. Abdomen Ultrasound 06/02/25 18:50 IMPRESSION: 1. Subtle finding liver surface nodularity with coarsened hepatic echotexture consistent with cirrhosis. 2. Minimal perihepatic ascites. Labs Labs: Laboratory Results - last 24 hr 06/04/25 06/04/25 06/04/25 11:47 16:33 20:52 WBC RBC Hgb Hct MCV MCH MCHC RDW Plt Count MPV Immature Gran % (Auto) Neut % (Auto) Lymph % (Auto) [place] % (Auto) Eos % (Auto) Baso % (Auto) Lymph # (Auto) [place] # (Auto) Eos # (Auto) Baso # (Auto) Abs Immat Gran (auto) Absolute Neuts (auto) Absolute Nucleated RBC Nucleated RBC % Sodium Potassium Chloride Carbon Dioxide Anion Gap BUN Creatinine Estim Creat Clear Calc Estimated GFR Glucose POC Capillary Glucose 164 H 182 H 157 H Calcium Magnesium Total Bilirubin AST ALT Alkaline Phosphatase Total Protein Albumin 06/05/25 06/05/25 05:08 07:58 WBC 4.7 RBC 2.55 L Hgb 8.5 L Hct 26.4 L MCV 103.5 H MCH 33.3 MCHC 32.2 RDW 15.6 H Plt Count 150 MPV 9.7 Immature Gran % (Auto) 0.6 H Neut % (Auto) 69.7 Lymph % (Auto) 8.6 L [place] % (Auto) 14.1 H Eos % (Auto) 6.4 H Baso % (Auto) 0.6 Lymph # (Auto) 0.40 L [place] # (Auto) 0.7 H Eos # (Auto) 0.3 Baso # (Auto) 0.0 Abs Immat Gran (auto) 0.03 Absolute Neuts (auto) 3.3 Absolute Nucleated RBC 0.000 Nucleated RBC % 0.0 Sodium 130 L Potassium 4.3 Chloride 100 Carbon Dioxide 25 Anion Gap 5 BUN 32 H Creatinine 1.05 Estim Creat Clear Calc 73 Estimated GFR > 60 Glucose 210 H POC Capillary Glucose 153 H Calcium 9.0 Magnesium 1.8 Total Bilirubin 1.3 AST 39 ALT 19 Alkaline Phosphatase 261 H Total Protein 6.4 Albumin 3.0 L
--- NOTE | 2025-06-05 11:39 | P.PNNP_ITS ---
Progress Note: A&P Assessment and Plan (1) Hyperkalemia: Code(s): E87.5 - Hyperkalemia Status: Acute Assessment and Plan: * potassium is better. Lokelma discontinued (2) Acute kidney injury: Code(s): N17.9 - Acute kidney failure, unspecified Status: Acute Assessment and Plan: * creatinine is improving near baseline now. * etiology not clear -- possibilities include: * bradycardia * relative hypotension * prerenal factors * other(?) * evaluation to date noted: * renal u/s without obstruction * CPK low * urine eosinophils negative * urine electrolytes non-prerenal * no significant proteinuria * creatinine is now normal. He is back on furosemide * renal will sign off. Call if any things needed. (3) Stage 3 chronic kidney disease: Code(s): N18.30 - Chronic kidney disease, stage 3 unspecified Status: Chronic Assessment and Plan: * baseline creatinine runs around 1.2 - 1.6mg/dl for the last few years * this causes this to fluctuate between CKD stage 3A and 3B * presumably due to diabetes, hypertension, vascular disease (CAD + CHF + hyperlipidemia), MARIANNA, obesity, and age-related disease (4) Symptomatic bradycardia: Code(s): R00.1 - Bradycardia, unspecified Status: Acute Assessment and Plan: * as noted in the ER * heart rate still in the 50s even with a good potassium. * Cardiology following the patient (5) Anemia: Qualifiers: Anemia type: unspecified type Qualified Code(s): D64.9 - Anemia, unspecified Code(s): D64.9 - Anemia, unspecified Status: Acute Assessment and Plan: * noted on admission * anemia studies with iron deficiency * on iron supplementation * hemoglobin seems to be running in the mid 8. It improved for the last 3 days in a (6) Hyponatremia: Code(s): E87.1 - Hypo-osmolality and hyponatremia Status: Acute Assessment and Plan: * noted in April 2025 * Continuing on salt tablets * sodium level stable between 129 and 131. * Continue 1500cc fluid restriction. For home purposes, drink if thirsty and not if not. Sip but do not gulp if thirsty. (7) Atrial fibrillation: Qualifiers: Atrial fibrillation type: persistent (not longstanding) Qualified Code(s): I48.19 - Other persistent atrial fibrillation Code(s): I48.91 - Unspecified atrial fibrillation Status: Chronic Assessment and Plan: * known history * rate control strategy * on anticoagulation (8) Closed fracture of left inferior pubic ramus: Code(s): S32.592A - Other specified fracture of left pubis, initial encounter for closed fracture Status: Acute Assessment and Plan: * as suggested by x-rays in ER * Orthopedic Surgery recommendations noted * WBAT with PT/OT (9) Acetabulum fracture, left: Code(s): S32.402A - Unspecified fracture of left acetabulum, initial encounter for closed fracture Status: Acute Assessment and Plan: * as suggested by x-rays in ER * Orthopedic Surgery recommends WBAT with PT/OT (10) Diabetes mellitus with neuropathy: Qualifiers: Diabetes mellitus type: type 2 Diabetes mellitus mcfp insulin use: with mcfp use Qualified Code(s): E11.40 - Type 2 diabetes mellitus with diabetic neuropathy, unspecified; Z79.4 - intermodal customer service (current) use of insulin Code(s): E11.40 - Type 2 diabetes mellitus with diabetic neuropathy, unspecified Status: Chronic Assessment and Plan: * follow accu-cheks * glycemic control per hospitalist Subjective Date/time seen: 06/05/25 11:39 Interval history: Patient is alert. Feels okay eating okay Exam Narrative: General: elderly but WD/WN male in NAD Heart: normal S1 and S2; no rub Lungs: coarse and decreased at bases Abdomen: soft, nontender, nondistended, positive bowel sounds Extremities: no cyanosis or clubbing; trace - 1+ edema Skin: warm and intact Objective Data Vital Signs Vital Signs: Vital Signs - 24 hr 06/04/25 12:00 06/04/25 12:00 06/04/25 16:00 Temperature 97.6 F 97.5 F L Pulse Rate 63 61 65 Respiratory Rate 18 18 Blood Pressure 148/57 H 148/62 H Pulse Oximetry 99 96 Oxygen Delivery 06/04/25 16:00 06/04/25 20:00 06/04/25 20:47 Temperature 97.8 F Pulse Rate 60 61 64 Respiratory Rate 18 Blood Pressure 132/52 L Pulse Oximetry 100 Oxygen Delivery 06/05/25 00:00 06/05/25 04:00 06/05/25 04:14 Temperature 97.7 F Pulse Rate 66 66 69 Respiratory Rate 18 Blood Pressure 134/54 L Pulse Oximetry 100 Oxygen Delivery 06/05/25 08:00 06/05/25 08:00 Temperature Pulse Rate 65 Respiratory Rate Blood Pressure Pulse Oximetry Oxygen Delivery Room Air Intake/Output Intake/Output: Intake & Output 06/02/25 06/03/25 06/04/25 06/05/25 23:59 23:59 23:59 23:59 Intake Total 1010 1620 2600 1130 Output Total 1300 3200 1890 1700 Balance -290 -1580 710 -570 Meds/Results Medications: Active Medications Generic Name Dose Route Start Last Admin Trade Name Freq PRN Reason Stop Dose Admin Acetaminophen 650 mg 06/01/25 06:59 06/05/25 09:01 Acetaminophen 325 Mg Tablet PO 650 mg Q6H PRN Administration Pain (Scale Score 1-3) Apixaban 5 mg 06/01/25 09:00 06/05/25 09:01 Apixaban 5 Mg Tablet PO 5 mg Q12HR YUNIOR Administration Dextrose 12.5 gm 06/01/25 01:21 Dextrose 50% 25 Gm/50 Ml Syringe IV PUSH PRN PRN Hypoglycemia Protocol Furosemide 40 mg 06/05/25 09:00 06/05/25 09:01 Furosemide 40 Mg Tablet PO 40 mg DAILY YUNIOR Administration Glucagon 1 mg 06/01/25 01:21 Glucagon For Inj 1 Mg Vial IM PRN PRN Hypoglycemia Protocol Glucose 15 gm 06/01/25 01:21 Glucose Oral Gel 15 Gm Of Glucse In 37.5 Gm Tube PO PRN PRN Hypoglycemia Protocol Dextrose 1,000 mls @ 100 mls/hr 06/01/25 01:21 Dextrose 5% 1,000 Ml IVPB PRN PRN Hypoglycemia Protocol Insulin Aspart 4 - 8 units 06/01/25 08:00 06/05/25 08:45 Insulin Aspart (*Bkc) 100 Units/Ml SUB-Q Not Given TIDWM YUNIOR Protocol Insulin Glargine 25 units 06/01/25 21:00 06/05/25 09:03 Insulin Glargine (*Bkc) 100 Units/Ml SUB-Q 25 units Q12HR YUNIOR Administration Lactulose 20 gm 06/03/25 09:00 06/05/25 09:01 Lactulose 20 Gm/30 Ml Udc PO 20 gm QAM YUNIOR Administration Melatonin 3 mg 06/01/25 21:00 06/04/25 20:53 Melatonin 3 Mg Tablet PO 3 mg HS YUNIOR Administration Nitroglycerin 0.4 mg 06/01/25 07:00 Nitroglycerin Sl 0.4 Mg Tablet SUBLINGUAL Q5MIN PRN Chest Pain Pantoprazole Sodium 40 mg 06/01/25 09:00 06/05/25 09:01 Pantoprazole 40 Mg Tablet PO 40 mg QAM YUNIOR Administration Polyethylene Glycol 17 gm 06/01/25 06:59 Polyethylene Glycol 3350 17 Gm Powd.Pack PO QAM PRN Constipation Polysaccharide Iron Complex 150 mg 06/01/25 09:00 06/05/25 09:01 Polysaccharide Iron Complex 150 Mg Capsule PO 150 mg DAILY YUNIOR Administration Ranolazine 500 mg 06/01/25 09:00 06/05/25 09:00 Ranolazine 500 Mg Tab.Er.12h PO 500 mg Q12HR YUNIOR Administration Senna/Docusate Sodium 1 tab 06/01/25 09:00 06/05/25 09:01 Senna/Docusate Sodium Tablet PO 1 tab BID YUNIOR Administration Sodium Chloride 1 gm 06/01/25 09:00 06/05/25 09:00 Sodium Chloride 1 Gm Tablet PO 1 gm BID YUNIOR Administration Radiology Results: ITS Impressions Chest X-Ray 05/31/25 20:59 IMPRESSION: 1. No acute cardiopulmonary disease. Hip/Pelvis X-Ray 06/01/25 06:51 Impression: 1: Possible fractures of the left acetabulum and inferior pubic ramus. Recommend correlation with CT. Head/Cervical Spine/Facial Bones CT 06/01/25 07:18 IMPRESSION: 1. No acute fracture of the facial bones or cervical spine. Head CT 06/01/25 07:22 IMPRESSION: 1. No acute intracranial abnormality. 2: Mild sinus disease. Renal Ultrasound 06/01/25 10:52 Impression: 1. Simple appearing right renal cyst. Abdomen Ultrasound 06/02/25 18:50 IMPRESSION: 1. Subtle finding liver surface nodularity with coarsened hepatic echotexture consistent with cirrhosis. 2. Minimal perihepatic ascites. Labs Labs: Laboratory Results - last 24 hr 06/04/25 06/04/25 06/04/25 11:47 16:33 20:52 WBC RBC Hgb Hct MCV MCH MCHC RDW Plt Count MPV Immature Gran % (Auto) Neut % (Auto) Lymph % (Auto) Tyrrell % (Auto) Eos % (Auto) Baso % (Auto) Lymph # (Auto) Tyrrell # (Auto) Eos # (Auto) Baso # (Auto) Abs Immat Gran (auto) Absolute Neuts (auto) Absolute Nucleated RBC Nucleated RBC % Sodium Potassium Chloride Carbon Dioxide Anion Gap BUN Creatinine Estim Creat Clear Calc Estimated GFR Glucose POC Capillary Glucose 164 H 182 H 157 H Calcium Magnesium Total Bilirubin AST ALT Alkaline Phosphatase Total Protein Albumin 06/05/25 06/05/25 05:08 07:58 WBC 4.7 RBC 2.55 L Hgb 8.5 L Hct 26.4 L MCV 103.5 H MCH 33.3 MCHC 32.2 RDW 15.6 H Plt Count 150 MPV 9.7 Immature Gran % (Auto) 0.6 H Neut % (Auto) 69.7 Lymph % (Auto) 8.6 L Tyrrell % (Auto) 14.1 H Eos % (Auto) 6.4 H Baso % (Auto) 0.6 Lymph # (Auto) 0.40 L Tyrrell # (Auto) 0.7 H Eos # (Auto) 0.3 Baso # (Auto) 0.0 Abs Immat Gran (auto) 0.03 Absolute Neuts (auto) 3.3 Absolute Nucleated RBC 0.000 Nucleated RBC % 0.0 Sodium 130 L Potassium 4.3 Chloride 100 Carbon Dioxide 25 Anion Gap 5 BUN 32 H Creatinine 1.05 Estim Creat Clear Calc 73 Estimated GFR > 60 Glucose 210 H POC Capillary Glucose 153 H Calcium 9.0 Magnesium 1.8 Total Bilirubin 1.3 AST 39 ALT 19 Alkaline Phosphatase 261 H Total Protein 6.4 Albumin 3.0 L
[2025-06-05] MEDS: MELATONIN 3 MG TABLET PO (20:54)
[2025-06-06] VITALS: PULSE 64
[2025-06-06 04:00] VITALS: PULSE 63
[2025-06-06 05:38] LABS: Anion Gap 4 mmol/L (4-12); Blood Urea Nitrogen 30 mg/dL (9-20); Calcium 8.9 mg/dL (8.4-10.2); Carbon Dioxide 27 mmol/L (22-30); Chloride 97 mmol/L (98-107); Estimated CRCL calculation 80 ml/min; Estimated Glomerular Filt Rate > 60; Glucose 110 mg/dL (65-110); Potassium 4.3 mmol/L (3.4-5.0); Sodium 128 mmol/L (137-145)
[2025-06-06 06:00] VITALS: BP 114/37; PULSE 63; RESP 14; TEMP 35.8; O2SAT 100
[2025-06-06 08:00] VITALS: BP 128/54; PULSE 67
[2025-06-06] MEDS: APIXABAN 5 MG TABLET PO (09:17)
[2025-06-06] MEDS: LACTULOSE 20 GM/30 ML UDC PO (09:17)
[2025-06-06] MEDS: SENNA/DOCUSATE SODIUM TABLET 1 TAB PO (09:17)
[2025-06-06] MEDS: SODIUM CHLORIDE 1 GM TABLET PO (09:17)
[2025-06-06] MEDS: RANOLAZINE 500 MG TAB.ER.12H PO (09:17)
[2025-06-06] MEDS: PANTOPRAZOLE 40 MG TABLET PO (09:17)
[2025-06-06] MEDS: FUROSEMIDE 40 MG TABLET PO (09:18)
[2025-06-06] MEDS: INSULIN GLARGINE (*BKC) 100 UNITS/ML 25 UNITS SUB-Q (09:19)
[2025-06-06] MEDS: ACETAMINOPHEN 325 MG TABLET 650 MG PO (11:02)
[2025-06-06 12:00] VITALS: PULSE 64
--- NOTE | 2025-06-06 12:21 | PM.DS ---
DS: Admitting Diagnosis Discharge Date 06/06/25 Admitting Diagnosis Fall with abnormal heart rhythm related to hyperkalemia along with AALIYAH and hypotension DS: Discharge Diagnosis Discharge Diagnosis (1) Acute hyperkalemia: Code(s): E87.5 - Hyperkalemia Status: Acute (2) Symptomatic bradycardia: Code(s): R00.1 - Bradycardia, unspecified Status: Acute (3) AALIYAH (acute kidney injury): Code(s): N17.9 - Acute kidney failure, unspecified Status: Acute (4) Atrial fibrillation: Qualifiers: Atrial fibrillation type: persistent (not longstanding) Qualified Code(s): I48.19 - Other persistent atrial fibrillation Code(s): I48.91 - Unspecified atrial fibrillation Status: Chronic (5) Closed fracture of left inferior pubic ramus: Code(s): S32.592A - Other specified fracture of left pubis, initial encounter for closed fracture Status: Acute (6) Acetabulum fracture, left: Code(s): S32.402A - Unspecified fracture of left acetabulum, initial encounter for closed fracture Status: Acute (7) Diabetes mellitus with neuropathy: Qualifiers: Diabetes mellitus intermission coordinator insulin use: with intermission coordinator use Diabetes mellitus type: type 2 Qualified Code(s): E11.40 - Type 2 diabetes mellitus with diabetic neuropathy, unspecified; Z79.4 - jail (current) use of insulin Code(s): E11.40 - Type 2 diabetes mellitus with diabetic neuropathy, unspecified Status: Chronic (8) Obstructive sleep apnea: Code(s): G47.33 - Obstructive sleep apnea (adult) (pediatric) Status: Chronic (9) Cirrhosis: Code(s): K74.60 - Unspecified cirrhosis of liver Status: Acute DS: Summary Hospital Course Reason for hospitalization: 79yo male with CKD, CHF, CAD, DM, MARIANNA and pulm HTN admitted to the hospital for abnormal heart rhythm related to hyperkalemia along with AALIYAH and hypotension. Please see H&P for details. Hospital Course: Potassium 6.4 with bradycardia and hypotension on admission. EKG on admission showing junctional escape rhythm with ventricular bigeminy, LAD, LBBB. Hyperkalemia related to AALIYAH and was treated appropriately. BP and HR stable after first round of treatment, patient admitted to IMU. Repeat potassium 5.8 prompting a second round of treatment. Lokelma scheduled. Repeat potassium normal now so Lokelma dose decreased then discontinued. AALIYAH resolved and able to resume Lasix. Continue low-potassium renal diet after discharge. For his symptomatic bradycardia, Coreg was held. Stollings junctional escape rhythm related to the severe hyperkalemia. Sinus rhythm returned and rate improved with HR mostly in low normal range (60s). 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 Troponin up to 0.04 felt related to bradycardia and junctional rhythm. Cardiology consulted and appreciate their input. Coreg remained on hold. Baseline creatinine is 1.1-1.2 range earlier this year. Creatinine 2.1 on admission. UA shows 1+ protein but no blood or red blood cells. Urine eosinophils are negative. Protein to creatinine ratio is normal. Urine electrolytes are non prerenal. Nephrology consulted and appreciate their input. Cr improved and Lasix able to be resumed. Cr normal and was 0.96 at discharge. Patient has a history of atrial fibrillation. Heart rate improved and noted to have sinus mechanism. We continued Eliquis. Patient had a fall prior to admission. Two-view x-ray of the right hip and pelvis shows possible fractures of the left acetabulum and inferior pubic rami. Orthopedics consulted and appreciate their input. Pelvic CT ordered but not felt to be required by ortho so this was cancelled. Given his injury to his right foot, right foot x-ray ordered but cancelled by ortho as well. Fall felt related to hyperkalemia and bradyarrhythmia. UA is not consistent with UTI. Chest x-ray not consistent with pneumonia. B12, folate and TSH normal. WBAT. He worked with PT and OT. A1c 6.1%. The patient's blood glucose was monitored closely. He was on Lantus 33u at night and Novolog 20U TID at meals according to home med list. Insulin adjusted to Lantus 25U Q12 and Novolog 9u TID on admission but glucose was too well controlled so meal time insulin stopped. Glucose remained well controlled now just with Lantus. Patient with known obstructive apnea but is unable to tolerate BiPAP. No ABG to evaluate. Concern for occult cirrhosis with macrocytosis, low plt, low WBC, elevated PT/PTT. B12, folate and TSH normal. Abd US shows subtle findings of liver surface nodularity with coarsened hepatic echotexture and minimal perihepatic ascites. Ammonia level 67. Could explain some of the mild confusion he has been having. Added Lactulose. Chronic viral hepatitis w/u negative. GI evaluation after discharge. Patient overall did well and was able to be discharged on 06/06/25. Discharge instructions discussed and all questions answered. Status at Discharge Cognitive/behavioral status at discharge: stable Time Spent with Patient Time attestation: Total time spent providing and/or coordinating discharge services: 38 minutes Time spent: Greater than 30 minutes Exam Narrative: AF 96.4 128/54 67 14 100% ra Gen - NARD HEENT - small ecchymosis right forehead. abrasion noted bridge of nose. Chest - distant BS in the bilateral bases o/w clear. CV - RRR. Tele showing no significant dysrhythmias Abd - Soft, obese, NT Ext - trace-1+ LE edema Psych - Nml mood and affect Skin - Warm and dry. DS: Data Data Completed and Pending Labs on day of discharge: Labs from last 24 hours 06/06/25 06/06/25 06/06/25 11:49 08:11 04:41 Sodium 128 L Potassium 4.3 Chloride 97 L Carbon Dioxide 27 Anion Gap 4 BUN 30 H Creatinine 0.96 Estim Creat Clear Calc 80 Estimated GFR > 60 Glucose 110 POC Capillary Glucose 176 H 114 H Calcium 8.9 06/05/25 06/05/25 06/05/25 19:49 17:00 12:23 Sodium Potassium Chloride Carbon Dioxide Anion Gap BUN Creatinine Estim Creat Clear Calc Estimated GFR Glucose POC Capillary Glucose 177 H 156 H 185 H Calcium Discharge Plan Discharge Attending physician on discharge: Eamon Haas Consulting providers: Sanjiv Starkey; Zeus Garcia; Faustino Hope Discharging Clinician: Eamon Haas Anticipated Discharge Date/Time: 06/06/25 12:37 Patient Disposition: [facility] Activity: as tolerated Diet: diabetic and other - see discharge instructions Discharge Instructions: Low potassium, diabetic diet Please check glucose before meals and before bed. Record for the doctor's review. Check blood pressure 1 to 2 times a day. Record for the doctor's review. Take precautions to avoid falls. Rise slowly from a lying or sitting position. Pause before standing or walking. Check daily morning weights after voiding. Call the doctor if the patient gains more than 3 lb in 2 days or 5 lb in 1 week. Contact the doctor if the patient has lightheadedness with standing or other worrisome symptoms. Avoid NSAIDs (ibuprofen, naproxen, Aleve). Tylenol is safe to take. Follow-up with the provider at the facility. Arrange for follow-up for GI for possible cirrhosis. Please call for an appointment. Follow-up with Medical Scribe in 2-3 weeks. Please call for an appointment. Thank you for using [facility] for your health care needs. Follow-up with GI. Please call for an appointment. Patient Instructions: Enoxaparin (By injection) Patient Language: [place] Follow-up/Referrals: Randy Borrero MD [Primary Care Provider, Family Practice] - Call for Appointment Sanjiv Starkey MD [Physician, Cardiology] - Call for Appointment Cole Cardenas MD [Physician, Gastroenterology] - Call for Appointment Discharge Medications: New insulin glargine [Lantus U-100 Insulin] 100 unit/mL Solution 25 unit subcut Q12HR Qty: 10 0RF lactulose 10 gram/15 mL Solution 20 g PO QAM Qty: 300 0RF Continued Repatha SureClick 140 mg/mL pen injector 140 mg subcut [id number] Rx Instructions: 1ST AND 15TH OF MONTH acetaminophen [Pain Reliever (acetaminophen)] 325 mg tablet 650 mg PO Q6H PRN (Reason: Pain (Scale Score 1-3)) Qty: 300 0RF polyethylene glycol 3350 [Miralax] 17 gram Powder In Packet 17 g PO QAM PRN (Reason: constipation) polysaccharide iron complex [Poly-Iron] 150 mg iron capsule 150 mg PO DAILY Qty: 90 1RF nitroglycerin 0.4 mg tablet, sublingual See Rx Instructions .ROUTE .COMPLEX Qty: 100 0RF Dose Instruction: DISSOLVE 1 TABLET UNDER THE TONGUE EVERY 5 MINUTES NEEDED FOR CHEST PAIN. TO BE TAKEN NO MORE THAN THREE TIMES DAILY Rx Instructions: DISSOLVE 1 TABLET UNDER THE TONGUE EVERY 5 MINUTES NEEDED FOR CHEST PAIN. TO BE TAKEN NO MORE THAN THREE TIMES DAILY (DME) FreeStyle [place] 3 Sensor Device See Rx Instructions .Route Qty: 1 5RF Rx Instructions: As directed furosemide 40 mg Tablet 40 mg PO DAILY Qty: 30 0RF melatonin 3 mg Tablet 3 mg PO HS Qty: 0 0RF pantoprazole 40 mg tablet,delayed release (DR/EC) 40 mg PO QAM Qty: 30 0RF ranolazine 500 mg tablet extended release 12 hr 500 mg PO Q12H Qty: 60 0RF Eliquis 5 mg Tablet 5 mg PO Q12HR Qty: 60 0RF sodium chloride 1,000 mg tablet,soluble 1,000 mg PO BID Qty: 60 0RF Held carvedilol 12.5 mg tablet See Rx Instructions .ROUTE .COMPLEX Qty: 200 1RF Hold Instructions: HOLD - Resume when okay with 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 citizenship Dose Instruction: TAKE 1 TABLET BY MOUTH EVERY 12 HOURS Rx Instructions: TAKE 1 TABLET BY MOUTH EVERY 12 HOURS insulin aspart U-100 100 unit/mL (3 mL) insulin pen See Rx Instructions .ROUTE .COMPLEX Qty: 15 0RF Hold Instructions: HOLD - Insulin adjustment per provider Dose Instruction: INJECT UP TO 20 UNITS UNDER THE SKIN WITH EACH MEAL PER SLIDING SCALE, 60 UNITS DAILY Rx Instructions: INJECT UP TO 20 UNITS UNDER THE SKIN WITH EACH MEAL PER SLIDING SCALE, 60 UNITS DAILY Discontinued sennosides-docusate sodium [Senokot-S] 8.6-50 mg Tablet 1 tab-cap PO BID Qty: 30 0RF insulin glargine [Lantus Solostar U-100 Insulin] 100 unit/mL (3 mL) insulin pen 33 unit subcut QHS Qty: 57 2RF Dose Instruction: INJECT 25 UNITS SUBCUTANEOUS TWICE DAILY Rx Instructions: INJECT 25 UNITS SUBCUTANEOUS TWICE DAILY Other Ambulatory Orders: Basic Metabolic Panel (Routine) Timeframe: [id number] Location: Determined by Patient Ordered By: Eamon Haas Date of admission: 05/31/25 23:26 Primary Care Provider: Randy Borrero Admitting Provider: Galdino Maravilla Attending physician on admission: Galdino Maravilla Condition: Stable Hospitalist MIPS Heart Failure (Exclusion) Patient has history of Heart Transplant or Left Ventricular Assistive Device?: No IF YES, STOP HERE Heart Failure (Qualifier) Patient has current or prior documentation of LVEF less than or equal to 40%, or mod/servere depressed LVSF?: No IF NO, STOP HERE
--- OUTSIDE RECORDS SUMMARY | 2025-07-08 19:00 | XMS_ITS | Clinical Summary ---
Author Organization Unknown Care Team Providers Care Clerk Typist Name Role Phone ALEXANDRO MINCAREY YAN Unavailable Devin HAWTHORNE RN, JEFFREY Unavailable Unavailable UBALDO PT, MAGI Unavailable Unavailable CONNER BEE FARMER, MOO Unavailable Unavailable MELINA OT, AYAKA Unavailable Unavailable KENNETH INDUSTRIAL REGISTERED NURSE, RONI Unavailable Unavailable Payers Payer Name Policy Type Policy Number Effective Date Expira tion Date MEDICARE.[facility]WANDA.[facility] [id number] Problems Condition Name Condition Details Condition Category Status Onset Date Resolution Date Last Treatment Date Treating Clinician Comments FX UNSP PART OF NK OF R FEMR, SUBS FOR CLOS FX W ROUTN HEAL Active 04-12 00:00: 00 UNEQUAL LIMB LENGTH (ACQUIRED), LEFT FEMUR Active 10-06 00:00: 00 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 Active 10-06 00:00: 00 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 KDNY Active 10-06 00:00: 00 ACUTE DIASTOLIC (CONGESTIVE) HEART FAILURE Active 10-06 00:00: 00 TYPE 2 DIABETES MELLITUS W DIABETIC CHRONIC KIDNEY DISEASE Active 10-06 00:00: 00 CHRONIC KIDNEY DISEASE, STAGE 3 UNSPECIFIED Active 10-06 00:00: 00 TYPE 2 DIABETES MELLITUS WITH DIABETIC NEUROPATHY, UNSP Active 10-06 00:00: 00 PULMONARY HYPERTENSION , UNSPECIFIED Active 10-06 00:00: 00 ATHSCL HEART DISEASE OF [place] [facility] ART W UNSP ANG PCTRS Active 10-06 00:00: 00 UNSPECIFIED ATRIAL FIBRILLATION Active 10-06 00:00: 00 BRONCHITIS, NOT SPECIFIED ACUTE OR CHRONIC Active 10-06 00:00: 00 ANEMIA IN CHRONIC KIDNEY DISEASE Active 10-06 00:00: 00 OBSTRUCTIVE SLEEP APNEA (ADULT) (PEDIATRIC) Active 10-06 00:00: 00 GASTRO-ESOPH AGEAL REFLUX DISEASE WITHOUT ESOPHAGITIS Active 10-06 00:00: 00 HYPERLIPIDEM IA, UNSPECIFIED Active 10-06 00:00: 00 TYPE 2 DIABETES MELLITUS WITH DIABETIC DERMATITIS Active 10-06 00:00: 00 OLD MYOCARDIAL INFARCTION Active 10-06 00:00: 00 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 Active 10-06 00:00: 00 BODY MASS INDEX [BMI]40.0-44 .9, ADULT Active 10-06 00:00: 00 PRESENCE OF RIGHT ARTIFICIAL HIP JOINT Active 04-15 00:00: 00 JAIL (CURRENT) USE OF INSULIN Active 10-06 00:00: 00 JAIL (CURRENT) USE OF ANTICOAGULAN TS Active 10-06 00:00: 00 PRESENCE OF AORTOCORONAR Y BYPASS GRAFT Active 10-06 00:00: 00 Allergies, Adverse Reactions, Alerts Allergy Name Allergy Type Status Severity Reaction(s) Onset Date Inactive Date Treating Clinician Comments PENCILLINN Propensity to adverse reactions Active 05-11 19:20: 12 LIRAGLUTIDE Propensity to adverse reactions Active 05-11 19:20: 22 STATIN(S) Propensity to adverse reactions Active 05-11 19:20: 33 Vital Signs Vital Name Observation Time Observation Value Commen ts Temperature 2025-05-30 10:59:00.000 97.8 [degF] Temperature 2025-05-30 09:42:00.000 97.8 [degF] Temperature 2025-05-27 12:33:00.000 97 [degF] Temperature 2025-05-24 15:10:00.000 98.4 [degF] Temperature 2025-05-23 09:44:00.000 98.9 [degF] Temperature 2025-05-20 11:40:00.000 98.2 [degF] Temperature 2025-05-19 15:25:00.000 98.2 [degF] Temperature 2025-05-18 10:14:00.000 98.4 [degF] Temperature 2025-05-16 13:15:00.000 98.4 [degF] Temperature 2025-05-16 09:47:00.000 98.3 [degF] Temperature 2025-05-13 17:42:00.000 97.8 [degF] Temperature 2025-05-12 12:43:00.000 97.2 [degF] Temperature 2025-05-12 11:08:00.000 97.2 [degF] Temperature 2025-05-11 17:58:00.000 97.5 [degF] BMI (%) 2025-05-11 17:58:00.000 35 kg/m2 Height 2025-05-11 17:58:00.000 74 [in_us] Pulse 2025-05-30 10:59:00.000 70 /min Pulse 2025-05-30 09:42:00.000 73 /min Pulse 2025-05-27 12:33:00.000 76 /min Pulse 2025-05-24 15:10:00.000 78 /min Pulse 2025-05-23 09:44:00.000 83 /min Pulse 2025-05-20 11:40:00.000 76 /min Pulse 2025-05-19 15:25:00.000 60 /min Pulse 2025-05-18 10:14:00.000 82 /min Pulse 2025-05-16 13:15:00.000 82 /min Pulse 2025-05-16 09:47:00.000 83 /min Pulse 2025-05-13 17:42:00.000 80 /min Pulse 2025-05-12 12:43:00.000 84 /min Pulse 2025-05-12 11:08:00.000 84 /min Pulse 2025-05-11 17:58:00.000 60 /min O2 Saturation (%) 2025-05-30 10:59:00.000 98 % O2 Saturation (%) 2025-05-30 09:42:00.000 98 % O2 Saturation (%) 2025-05-27 12:33:00.000 98 % O2 Saturation (%) 2025-05-24 15:10:00.000 99 % O2 Saturation (%) 2025-05-23 09:44:00.000 98 % O2 Saturation (%) 2025-05-20 11:40:00.000 98 % O2 Saturation (%) 2025-05-19 15:25:00.000 100 % O2 Saturation (%) 2025-05-18 10:14:00.000 98 % O2 Saturation (%) 2025-05-16 13:15:00.000 98 % O2 Saturation (%) 2025-05-16 09:47:00.000 98 % O2 Saturation (%) 2025-05-13 17:42:00.000 99 % O2 Saturation (%) 2025-05-12 12:43:00.000 97 % O2 Saturation (%) 2025-05-12 11:08:00.000 97 % O2 Saturation (%) 2025-05-11 17:58:00.000 96 % Respirations 2025-05-30 10:59:00.000 16 /min Respirations 2025-05-30 09:42:00.000 18 /min Respirations 2025-05-27 12:33:00.000 18 /min Respirations 2025-05-24 15:10:00.000 20 /min Respirations 2025-05-23 09:44:00.000 18 /min Respirations 2025-05-20 11:40:00.000 18 /min Respirations 2025-05-19 15:25:00.000 16 /min Respirations 2025-05-18 10:14:00.000 18 /min Respirations 2025-05-16 13:15:00.000 16 /min Respirations 2025-05-16 09:47:00.000 18 /min Respirations 2025-05-13 17:42:00.000 16 /min Respirations 2025-05-12 12:43:00.000 18 /min Respirations 2025-05-12 11:08:00.000 18 /min Respirations 2025-05-11 17:58:00.000 18 /min Weight (lbs) 2025-05-30 10:59:00.000 284 [lb_av] Weight (lbs) 2025-05-27 12:33:00.000 285 [lb_av] Weight (lbs) 2025-05-19 15:25:00.000 289 [lb_av] Weight (lbs) 2025-05-18 10:19:00.000 291 [lb_av] Weight (lbs) 2025-05-16 13:15:00.000 290 [lb_av] Weight (lbs) 2025-05-13 17:42:00.000 291 [lb_av] Weight (lbs) 2025-05-12 11:45:00.000 294 [lb_av] Weight (lbs) 2025-05-11 17:58:00.000 280 [lb_av] Systolic Blood Pressure 2025-05-30 10:59:00.000 104 mm [Hg] Systolic Blood Pressure 2025-05-30 09:42:00.000 102 mm [Hg] Systolic Blood Pressure 2025-05-27 12:33:00.000 97 mm[ Hg] Systolic Blood Pressure 2025-05-24 15:10:00.000 108 mm [Hg] Systolic Blood Pressure 2025-05-23 09:44:00.000 118 mm [Hg] Systolic Blood Pressure 2025-05-20 11:40:00.000 112 mm [Hg] Systolic Blood Pressure 2025-05-19 15:25:00.000 120 mm [Hg] Systolic Blood Pressure 2025-05-18 10:14:00.000 104 mm [Hg] Systolic Blood Pressure 2025-05-16 13:15:00.000 118 mm [Hg] Systolic Blood Pressure 2025-05-16 09:47:00.000 122 mm [Hg] Systolic Blood Pressure 2025-05-13 17:42:00.000 112 mm [Hg] Systolic Blood Pressure 2025-05-12 12:43:00.000 108 mm [Hg] Systolic Blood Pressure 2025-05-12 11:08:00.000 108 mm [Hg] Systolic Blood Pressure 2025-05-11 17:58:00.000 110 mm [Hg] Diastolic Blood Pressure 2025-05-30 10:59:00.000 62 mm [Hg] Diastolic Blood Pressure 2025-05-30 09:42:00.000 62 mm [Hg] Diastolic Blood Pressure 2025-05-27 12:33:00.000 52 mm [Hg] Diastolic Blood Pressure 2025-05-24 15:10:00.000 60 mm [Hg] Diastolic Blood Pressure 2025-05-23 09:44:00.000 72 mm [Hg] Diastolic Blood Pressure 2025-05-20 11:40:00.000 62 mm [Hg] Diastolic Blood Pressure 2025-05-19 15:25:00.000 72 mm [Hg] Diastolic Blood Pressure 2025-05-18 10:14:00.000 68 mm [Hg] Diastolic Blood Pressure 2025-05-16 13:15:00.000 60 mm [Hg] Diastolic Blood Pressure 2025-05-16 09:47:00.000 72 mm [Hg] Diastolic Blood Pressure 2025-05-13 17:42:00.000 62 mm [Hg] Diastolic Blood Pressure 2025-05-12 12:43:00.000 64 mm [Hg] Diastolic Blood Pressure 2025-05-12 11:08:00.000 64 mm [Hg] Diastolic Blood Pressure 2025-05-11 17:58:00.000 60 mm [Hg] Plan of Treatment Planned Activity Planned Date Details Comments Future Scheduled Test RN TO OBSE RVE, ASSESS, EVALUATE, AND DEVELOP AN INDIVIDUALIZED PLAN OF CARE. AGENCY MAY ACCEPT ORDERS FROM CONSULTING PHYSICIANS. RN TO OBSERVE AND ASSESS, BEE FARMER/OPTOMETRY PROFESSOR TO OBSERVE FOR RISK FOR FALLS AND INSTRUCT IN FALL PREVENTION, HOME SAFETY, MEDICATION MANAGEMENT, INFECTION PREVENTION, AND NUTRITION MANAGEMENT. RN/BEE FARMER/OPTOMETRY PROFESSOR NURSE MAY PERFORM O2 SATURATION LEVEL ON ADMISSION AND PRN FOR RN TO ASSESS/BEE FARMER TO OBSERVE PATIENT, WITH NOTIFICATION TO THE PHYSICIAN IF SATURATION IS 90% IN THE ABSENCE OF MORE SPECIFIC PARAMETERS FROM THE PHYSICIAN. AGENCY MAY PERFORM A RESUMPTION OF CARE VISIT FOLLOWING ANY HOSPITAL ADMISSION. RN/BEE FARMER/OPTOMETRY PROFESSOR TO MONITOR CO-MORBID CONDITIONS LISTED ON THE PLAN OF CARE AND ANY NEW CONDITIONS THAT PRESENT THEMSELVES DURING THIS EPISODE TO IDENTIFY CHANGES AND INTERVENE TO MINIMIZE COMPLICATIONS. [code = RN TO OBSERVE, ASSESS, EVALUATE, AND DEVELOP AN INDIVIDUALIZED PLAN OF CARE. AGENCY MAY ACCEPT ORDERS FROM CONSULTING PHYSICIANS. RN TO OBSERVE AND ASSESS, BEE FARMER/OPTOMETRY PROFESSOR TO OBSERVE FOR RISK FOR FALLS AND INSTRUCT IN FALL PREVENTION, HOME SAFETY, MEDICATION MANAGEMENT, INFECTION PREVENTION, AND NUTRITION MANAGEMENT. RN/BEE FARMER/OPTOMETRY PROFESSOR NURSE MAY PERFORM O2 SATURATION LEVEL ON ADMISSION AND PRN FOR RN TO ASSESS/BEE FARMER TO OBSERVE PATIENT, WITH NOTIFICATION TO THE PHYSICIAN IF SATURATION IS 90% IN THE ABSENCE OF MORE SPECIFIC PARAMETERS FROM THE PHYSICIAN. AGENCY MAY PERFORM A RESUMPTION OF CARE VISIT FOLLOWING ANY HOSPITAL ADMISSION. RN/BEE FARMER/OPTOMETRY PROFESSOR TO MONITOR CO-MORBID CONDITIONS LISTED ON THE PLAN OF CARE AND ANY NEW CONDITIONS THAT PRESENT THEMSELVES DURING THIS EPISODE TO IDENTIFY CHANGES AND INTERVENE TO MINIMIZE COMPLICATIONS.] Future Scheduled Test MEDICATION MANAGEMENT; RN/BEE FARMER/OPTOMETRY PROFESSOR TO REVIEW MEDICATIONS FOR INTERACTIONS, EFFECTIVENESS OF DRUG THERAPY, AND SIGNS/SYMPTOMS OF ADVERSE REACTIONS. MAY INSTRUCT AND REINFORCE MEDICATION TEACHING RELATED TO THE USE OF MEDICATIONS, DOSAGE, FREQUENCY, PURPOSE, SIDE EFFECTS, AND TO REPORT COMPLICATIONS. [code = MEDICATION MANAGEMENT; RN/BEE FARMER/OPTOMETRY PROFESSOR TO REVIEW MEDICATIONS FOR INTERACTIONS, EFFECTIVENESS OF DRUG THERAPY, AND SIGNS/SYMPTOMS OF ADVERSE REACTIONS. MAY INSTRUCT AND REINFORCE MEDICATION TEACHING RELATED TO THE USE OF MEDICATIONS, DOSAGE, FREQUENCY, PURPOSE, SIDE EFFECTS, AND TO REPORT COMPLICATIONS.] Future Scheduled Test ANTITHROMB OTIC MANAGEMENT; RN TO ASSESS AND TEACH, BEE FARMER/OPTOMETRY PROFESSOR TO OBSERVE/TEACH/MONITOR EFFECTIVENESS OF ANTITHROMBOTIC THERAPY. RN/BEE FARMER/OPTOMETRY PROFESSOR TO INSTRUCT ON SIGNS AND SYMPTOMS OF BLEEDING/ADVERSE REACTIONS TO REPORT TO PHYSICIAN [code = ANTITHROMBOTIC MANAGEMENT; RN TO ASSESS AND TEACH, BEE FARMER/OPTOMETRY PROFESSOR TO OBSERVE/TEACH/MONITOR EFFECTIVENESS OF ANTITHROMBOTIC THERAPY. RN/BEE FARMER/OPTOMETRY PROFESSOR TO INSTRUCT ON SIGNS AND SYMPTOMS OF BLEEDING/ADVERSE REACTIONS TO REPORT TO PHYSICIAN ] Future Scheduled Test RISK FOR H OSPITALIZATION; RN TO ASSESS/TEACH, OPTOMETRY PROFESSOR/BEE FARMER TO OBSERVE/TEACH PATIENT/CAREGIVER ON RISK FOR HOSPITALIZATION/EMERGENCY ROOM VISITS, TEACH SIGNS AND SYMPTOMS THAT PUT PATIENT AT RISK, WHEN TO NOTIFY NURSE/PHYSICIAN OF COMPLICATIONS/DECLINE, AND WHEN TO CALL 911. [code = RISK FOR HOSPITALIZATION; RN TO ASSESS/TEACH, OPTOMETRY PROFESSOR/BEE FARMER TO OBSERVE/TEACH PATIENT/CAREGIVER ON RISK FOR HOSPITALIZATION/EMERGENCY ROOM VISITS, TEACH SIGNS AND SYMPTOMS THAT PUT PATIENT AT RISK, WHEN TO NOTIFY NURSE/PHYSICIAN OF COMPLICATIONS/DECLINE, AND WHEN TO CALL 911.] Future Scheduled Test CARDIOVASC ULAR SYSTEM; RN TO ASSESS/TEACH, BEE FARMER/OPTOMETRY PROFESSOR TO OBSERVE/TEACH RELATED TO ALTERED CARDIOVASCULAR STATUS TO MINIMIZE COMPLICATIONS AND REDUCE HOSPITALIZATION. [code = CARDIOVASCULAR SYSTEM; RN TO ASSESS/TEACH, BEE FARMER/OPTOMETRY PROFESSOR TO OBSERVE/TEACH RELATED TO ALTERED CARDIOVASCULAR STATUS TO MINIMIZE COMPLICATIONS AND REDUCE HOSPITALIZATION.] Future Scheduled Test HYPERTENSI ON MANAGEMENT; RN TO ASSESS AND TEACH, BEE FARMER/OPTOMETRY PROFESSOR TO OBSERVE AND TEACH WARNING SIGNS AND SYMPTOMS TO AVOID HOSPITALIZATION. [code = HYPERTENSION MANAGEMENT; RN TO ASSESS AND TEACH, BEE FARMER/OPTOMETRY PROFESSOR TO OBSERVE AND TEACH WARNING SIGNS AND SYMPTOMS TO AVOID HOSPITALIZATION.] Future Scheduled Test ARRHYTHMIA MANAGEMENT; RN TO ASSESS AND TEACH, BEE FARMER/OPTOMETRY PROFESSOR TO OBSERVE AND TEACH WARNING SIGNS AND SYMPTOMS TO AVOID HOSPITALIZATION. [code = ARRHYTHMIA MANAGEMENT; RN TO ASSESS AND TEACH, BEE FARMER/OPTOMETRY PROFESSOR TO OBSERVE AND TEACH WARNING SIGNS AND SYMPTOMS TO AVOID HOSPITALIZATION.] Future Scheduled Test RN TO ASSE SS/TEACH, BEE FARMER/OPTOMETRY PROFESSOR TO OBSERVE/TEACH SURGICAL AFTERCARE MANAGEMENT TO AVOID HOSPITALIZATION. [code = RN TO ASSESS/TEACH, BEE FARMER/OPTOMETRY PROFESSOR TO OBSERVE/TEACH SURGICAL AFTERCARE MANAGEMENT TO AVOID HOSPITALIZATION.] Future Scheduled Test PAIN MANAG EMENT; RN TO ASSESS AND TEACH, OPTOMETRY PROFESSOR/BEE FARMER TO OBSERVE AND TEACH AND PROVIDE EDUCATION ON PAIN MANAGEMENT TECHNIQUES. [code = PAIN MANAGEMENT; RN TO ASSESS AND TEACH, OPTOMETRY PROFESSOR/BEE FARMER TO OBSERVE AND TEACH AND PROVIDE EDUCATION ON PAIN MANAGEMENT TECHNIQUES.] Future Scheduled Test DIABETES M ANAGEMENT; RN TO ASSESS AND TEACH, OPTOMETRY PROFESSOR/BEE FARMER TO OBSERVE AND TEACH INSTRUCTIONS OF DIABETIC CARE TO INCLUDE: DIET DM, SKIN CARE, SIGNS AND SYMPTOMS OF HYPO/HYPERGLYCEMIA, PROPER ADMINISTRATION OF DIABETIC MEDICATION. RN/OPTOMETRY PROFESSOR/BEE FARMER TO INSTRUCT ON DIABETIC FOOT CARE AND MONITOR FOR SKIN LESIONS ON LOWER EXTREMITIES. BLOOD GLUCOSE TESTING MX TIMES DAILY. RN TO ASSESS AND TEACH, OPTOMETRY PROFESSOR/BEE FARMER TO OBSERVE AND TEACH PATIENT/CAREGIVER ABILITY TO PERFORM AND RECORD BLOOD GLUCOSE TESTING ORDERED AND TO REPORT ABNORMAL FINDINGS TO PHYSICIAN. RN/OPTOMETRY PROFESSOR/BEE FARMER MAY PERFORM BLOOD GLUCOSE TEST NEEDED. RN/OPTOMETRY PROFESSOR/BEE FARMER TO REPORT TO PHYSICIAN BLOOD GLUCOSE READINGS GREATER THAN 300 OR LESS THAN 70 RN/OPTOMETRY PROFESSOR/BEE FARMER TO INSTRUCT PATIENT ON IMPORTANCE OF HGBA1C MONITORING, KIDNEY FUNCTION TEST, EYE AND FOOT EXAMS. [code = DIABETES MANAGEMENT; RN TO ASSESS AND TEACH, OPTOMETRY PROFESSOR/BEE FARMER TO OBSERVE AND TEACH INSTRUCTIONS OF DIABETIC CARE TO INCLUDE: DIET DM, SKIN CARE, SIGNS AND SYMPTOMS OF HYPO/HYPERGLYCEMIA, PROPER ADMINISTRATION OF DIABETIC MEDICATION. RN/OPTOMETRY PROFESSOR/BEE FARMER TO INSTRUCT ON DIABETIC FOOT CARE AND MONITOR FOR SKIN LESIONS ON LOWER EXTREMITIES. BLOOD GLUCOSE TESTING MX TIMES DAILY. RN TO ASSESS AND TEACH, OPTOMETRY PROFESSOR/BEE FARMER TO OBSERVE AND TEACH PATIENT/CAREGIVER ABILITY TO PERFORM AND RECORD BLOOD GLUCOSE TESTING ORDERED AND TO REPORT ABNORMAL FINDINGS TO PHYSICIAN. RN/OPTOMETRY PROFESSOR/BEE FARMER MAY PERFORM BLOOD GLUCOSE TEST NEEDED. RN/OPTOMETRY PROFESSOR/BEE FARMER TO REPORT TO PHYSICIAN BLOOD GLUCOSE READINGS GREATER THAN 300 OR LESS THAN 70 RN/OPTOMETRY PROFESSOR/BEE FARMER TO INSTRUCT PATIENT ON IMPORTANCE OF HGBA1C MONITORING, KIDNEY FUNCTION TEST, EYE AND FOOT EXAMS.] Future Scheduled Test FALL REDUC TION MANAGEMENT; RN TO ASSESS AND OBSERVE, BEE FARMER/OPTOMETRY PROFESSOR TO OBSERVE FALL RISK FACTORS AND EDUCATE PATIENT/CAREGIVER ON STRATEGIES TO MINIMIZE THE RISK OF FALLING. [code = FALL REDUCTION MANAGEMENT; RN TO ASSESS AND OBSERVE, BEE FARMER/OPTOMETRY PROFESSOR TO OBSERVE FALL RISK FACTORS AND EDUCATE PATIENT/CAREGIVER ON STRATEGIES TO MINIMIZE THE RISK OF FALLING.] Future Scheduled Test PHYSICAL T HERAPIST TO EVALUATE FOR STRENGTHENING [code = PHYSICAL THERAPIST TO EVALUATE FOR STRENGTHENING ] Future Scheduled Test OCCUPATION AL THERAPIST TO EVALUATE FOR STRENGTHENING [code = OCCUPATIONAL THERAPIST TO EVALUATE FOR STRENGTHENING ] Future Scheduled Test PRN VISITS ; NUMBER OF RN/BEE FARMER/OPTOMETRY PROFESSOR VISITS: 1 RN/BEE FARMER/OPTOMETRY PROFESSOR TO PERFORM: WOUND CARES FOR THE FOLLOWING REASONS: SS INFECTION, BLEEDING [code = PRN VISITS; NUMBER OF RN/BEE FARMER/OPTOMETRY PROFESSOR VISITS: 1 RN/BEE FARMER/OPTOMETRY PROFESSOR TO PERFORM: WOUND CARES FOR THE FOLLOWING REASONS: SS INFECTION, BLEEDING ] Future Scheduled Test AGENCY MAY PERFORM A RESUMPTION OF CARE VISIT FOLLOWING ANY HOSPITAL ADMISSION. OT TO EVALUATE, OBSERVE / ASSESS, AND MONITOR, STEAM SHOVEL RUNNER TO OBSERVE AND MONITOR, PROVIDE SKILLED THERAPEUTIC INTERVENTION, ACTIVITY, EDUCATION, AND TRAINING TO ADDRESS SAFETY AND INDEPENDENCE OF ADLS AND FUNCTIONAL TRANSFERS IN HOME ENVIRONMENT. BATHING/SHOWERING (OT/TARYN) DRESSING (OT/TARYN) ACTIVITIES OF DAILY LIVING (OT/TARYN) BATH/SHOWER TRANSFER (OT/STEAM SHOVEL RUNNER) THERAPEUTIC EXERCISE (OT/STEAM SHOVEL RUNNER) OT / TARYN TO EDUCATE ON DIABETES SELF- MANAGEMENT OT/TARYN TO MONITOR AND EDUCATE ON OXYGEN SATURATION DURING ADLS/IADLS, NOTIFY PHYSICIAN AND/OR THE RN CLINICAL CONFERENCE TRANSLATOR FOR PHYSICIAN NOTIFICATION AND IF O2 SATS BELOW 90% AFTER 10 MIN OF REST. OT / STEAM SHOVEL RUNNER TO IDENTIFY FALL RISK FACTORS; EDUCATE THE PATIENT/CAREGIVER ON WAYS TO REDUCE FALL RISK FACTORS AND ESTABLISH HOME EXERCISE PROGRAM TO MINIMIZE FALL RISK. MAY TEACH THE PATIENT FLOOR RECOVERY WHEN CLINICALLY APPROPRIATE. OT/TARYN TO EDUCATE ON HEART FAILURE SELF-MANAGEMENT OT/STEAM SHOVEL RUNNER TO EDUCATE ON HYPERTENSION SELF-MANAGEMENT OT/TARYN TO MONITOR FOR AND REPORT EARLY SIGNS OF ANTICOAGULANT TOXICITY TO THE PHYSICIAN AND/OR THE RN CLINICAL CONFERENCE TRANSLATOR FOR PHYSICIAN NOTIFICATION AND TO PROVIDE PATIENT/CAREGIVER EDUCATION ON ANTICOAGULANT THERAPY OT/TARYN TO INSTRUCT PATIENT/CAREGIVER ON RISK FOR HOSPITALIZATION/EMERGENCY ROOM VISITS, TEACH SIGNS AND SYMPTOMS THAT PUT PATIENT AT RISK, WHEN TO NOTIFY NURSE/PHYSICIAN OF COMPLICATIONS/DECLINE, AND WHEN TO CALL 911. OT/TARYN TO EDUCATE ON ATRIAL FIBRILLATION SELF-MANAGEMENT. [code = AGENCY MAY PERFORM A RESUMPTION OF CARE VISIT FOLLOWING ANY HOSPITAL ADMISSION. OT TO EVALUATE, OBSERVE / ASSESS, AND MONITOR, TARYN TO OBSERVE AND MONITOR, PROVIDE SKILLED THERAPEUTIC INTERVENTION, ACTIVITY, EDUCATION, AND TRAINING TO ADDRESS SAFETY AND INDEPENDENCE OF ADLS AND FUNCTIONAL TRANSFERS IN HOME ENVIRONMENT. BATHING/SHOWERING (OT/STEAM SHOVEL RUNNER) DRESSING (OT/TARYN) ACTIVITIES OF DAILY LIVING (OT/STEAM SHOVEL RUNNER) BATH/SHOWER TRANSFER (OT/TARYN) THERAPEUTIC EXERCISE (OT/TARYN) OT / STEAM SHOVEL RUNNER TO EDUCATE ON DIABETES SELF- MANAGEMENT OT/STEAM SHOVEL RUNNER TO MONITOR AND EDUCATE ON OXYGEN SATURATION DURING ADLS/IADLS, NOTIFY PHYSICIAN AND/OR THE RN CLINICAL CONFERENCE TRANSLATOR FOR PHYSICIAN NOTIFICATION AND IF O2 SATS BELOW 90% AFTER 10 MIN OF REST. OT / TARYN TO IDENTIFY FALL RISK FACTORS; EDUCATE THE PATIENT/CAREGIVER ON WAYS TO REDUCE FALL RISK FACTORS AND ESTABLISH HOME EXERCISE PROGRAM TO MINIMIZE FALL RISK. MAY TEACH THE PATIENT FLOOR RECOVERY WHEN CLINICALLY APPROPRIATE. OT/TARYN TO EDUCATE ON HEART FAILURE SELF-MANAGEMENT OT/STEAM SHOVEL RUNNER TO EDUCATE ON HYPERTENSION SELF-MANAGEMENT OT/TARYN TO MONITOR FOR AND REPORT EARLY SIGNS OF ANTICOAGULANT TOXICITY TO THE PHYSICIAN AND/OR THE RN CLINICAL CONFERENCE TRANSLATOR FOR PHYSICIAN NOTIFICATION AND TO PROVIDE PATIENT/CAREGIVER EDUCATION ON ANTICOAGULANT THERAPY OT/STEAM SHOVEL RUNNER TO INSTRUCT PATIENT/CAREGIVER ON RISK FOR HOSPITALIZATION/EMERGENCY ROOM VISITS, TEACH SIGNS AND SYMPTOMS THAT PUT PATIENT AT RISK, WHEN TO NOTIFY NURSE/PHYSICIAN OF COMPLICATIONS/DECLINE, AND WHEN TO CALL 911. OT/TARYN TO EDUCATE ON ATRIAL FIBRILLATION SELF-MANAGEMENT. ] Future Scheduled Test AGENCY MAY PERFORM A RESUMPTION OF CARE VISIT FOLLOWING ANY HOSPITAL ADMISSION. PT TO EVALUATE, OBSERVE / ASSESS, AND MONITOR, INDUSTRIAL REGISTERED NURSE TO OBSERVE AND MONITOR, PROVIDE SKILLED THERAPEUTIC INTERVENTION, ACTIVITY, EDUCATION, AND TRAINING TO ADDRESS; PT/INDUSTRIAL REGISTERED NURSE TO PROVIDE GAIT TRAINING FOR IMPROVED MOBILITY AND /OR TO NORMALIZE GAIT PATTERN NEUROMUSCULAR RE-EDUCATION / BALANCE / POSTURAL CONTROL (PT) THERAPEUTIC EXERCISES AND ESTABLISHING A HOME EXERCISE PROGRAM (PT/INDUSTRIAL REGISTERED NURSE) PT/INDUSTRIAL REGISTERED NURSE TO PROVIDE STAIR TRAINING SIT TO/FROM STAND TRANSFERS (PT/INDUSTRIAL REGISTERED NURSE) PT TO ASSESS / INDUSTRIAL REGISTERED NURSE TO MONITOR FOR AND REPORT EARLY SIGNS OF ANTICOAGULANT TOXICITY TO THE PHYSICIAN AND/OR THE RN CLINICAL CONFERENCE TRANSLATOR FOR PHYSICIAN NOTIFICATION AND TO PROVIDE PATIENT/CAREGIVER EDUCATION ON ANTICOAGULANT THERAPY PT / INDUSTRIAL REGISTERED NURSE TO MONITOR FOR HYPO/HYPERGLYCEMIA AND CONDUCT ROUTINE FOOT INSPECTIONS. RECORD PATIENT REPORTED BLOOD SUGAR LEVELS AND NOTIFY PHYSICIAN AND/OR THE RN CLINICAL CONFERENCE TRANSLATOR FOR PHYSICIAN NOTIFICATION IF BLOOD SUGAR LEVELS ARE OUTSIDE ORDERED PARAMETERS. TEACH PATIENT/CAREGIVER ON DAILY FOOT INSPECTIONS PT / INDUSTRIAL REGISTERED NURSE TO EDUCATE ON HIP REPLACEMENT SELF-MANAGEMENT PT TO ASSESS / INDUSTRIAL REGISTERED NURSE TO MONITOR FOR HEART FAILURE EXACERBATION AND RECORD PATIENT REPORTED WEIGHT, AND NOTIFY THE PHYSICIAN AND/OR THE RN CLINICAL CONFERENCE TRANSLATOR FOR PHYSICIAN NOTIFICATION OF HF EXACERBATION (2LB WEIGHT GAIN IN 1 DAY, 5LBS IN A WEEK OR 5 LBS OVER BASELINE; INCREASED SOB, EDEMA, NEEDING MORE PILLOWS AT NIGHT, CRACKLES IN BASIS OF THE LUNGS OR PMI SHIFT) PT TO ASSESS / INDUSTRIAL REGISTERED NURSE TO MONITOR CARDIO/RESPIRATORY SYSTEM; AND NOTIFY THE PHYSICIAN AND/OR THE RN CLINICAL CONFERENCE TRANSLATOR FOR PHYSICIAN NOTIFICATION FOR EARLY SIGNS AND SYMPTOMS OF EXACERBATION OR DETERIORATION. PT/INDUSTRIAL REGISTERED NURSE TO IDENTIFY FALL RISK FACTORS; EDUCATE THE PATIENT/CAREGIVER ON WAYS TO REDUCE FALL RISK FACTORS AND ESTABLISH HOME EXERCISE PROGRAM TO MINIMIZE FALL RISK. MAY TEACH THE PATIENT FLOOR RECOVERY WHEN CLINICALLY APPROPRIATE [code = AGENCY MAY PERFORM A RESUMPTION OF CARE VISIT FOLLOWING ANY HOSPITAL ADMISSION. PT TO EVALUATE, OBSERVE / ASSESS, AND MONITOR, INDUSTRIAL REGISTERED NURSE TO OBSERVE AND MONITOR, PROVIDE SKILLED THERAPEUTIC INTERVENTION, ACTIVITY, EDUCATION, AND TRAINING TO ADDRESS; PT/INDUSTRIAL REGISTERED NURSE TO PROVIDE GAIT TRAINING FOR IMPROVED MOBILITY AND /OR TO NORMALIZE GAIT PATTERN NEUROMUSCULAR RE-EDUCATION / BALANCE / POSTURAL CONTROL (PT) THERAPEUTIC EXERCISES AND ESTABLISHING A HOME EXERCISE PROGRAM (PT/INDUSTRIAL REGISTERED NURSE) PT/INDUSTRIAL REGISTERED NURSE TO PROVIDE STAIR TRAINING SIT TO/FROM STAND TRANSFERS (PT/INDUSTRIAL REGISTERED NURSE) PT TO ASSESS / INDUSTRIAL REGISTERED NURSE TO MONITOR FOR AND REPORT EARLY SIGNS OF ANTICOAGULANT TOXICITY TO THE PHYSICIAN AND/OR THE RN CLINICAL CONFERENCE TRANSLATOR FOR PHYSICIAN NOTIFICATION AND TO PROVIDE PATIENT/CAREGIVER EDUCATION ON ANTICOAGULANT THERAPY PT / INDUSTRIAL REGISTERED NURSE TO MONITOR FOR HYPO/HYPERGLYCEMIA AND CONDUCT ROUTINE FOOT INSPECTIONS. RECORD PATIENT REPORTED BLOOD SUGAR LEVELS AND NOTIFY PHYSICIAN AND/OR THE RN CLINICAL CONFERENCE TRANSLATOR FOR PHYSICIAN NOTIFICATION IF BLOOD SUGAR LEVELS ARE OUTSIDE ORDERED PARAMETERS. TEACH PATIENT/CAREGIVER ON DAILY FOOT INSPECTIONS PT / INDUSTRIAL REGISTERED NURSE TO EDUCATE ON HIP REPLACEMENT SELF-MANAGEMENT PT TO ASSESS / INDUSTRIAL REGISTERED NURSE TO MONITOR FOR HEART FAILURE EXACERBATION AND RECORD PATIENT REPORTED WEIGHT, AND NOTIFY THE PHYSICIAN AND/OR THE RN CLINICAL CONFERENCE TRANSLATOR FOR PHYSICIAN NOTIFICATION OF HF EXACERBATION (2LB WEIGHT GAIN IN 1 DAY, 5LBS IN A WEEK OR 5 LBS OVER BASELINE; INCREASED SOB, EDEMA, NEEDING MORE PILLOWS AT NIGHT, CRACKLES IN BASIS OF THE LUNGS OR PMI SHIFT) PT TO ASSESS / INDUSTRIAL REGISTERED NURSE TO MONITOR CARDIO/RESPIRATORY SYSTEM; AND NOTIFY THE PHYSICIAN AND/OR THE RN CLINICAL CONFERENCE TRANSLATOR FOR PHYSICIAN NOTIFICATION FOR EARLY SIGNS AND SYMPTOMS OF EXACERBATION OR DETERIORATION. PT/INDUSTRIAL REGISTERED NURSE TO IDENTIFY FALL RISK FACTORS; EDUCATE THE PATIENT/CAREGIVER ON WAYS TO REDUCE FALL RISK FACTORS AND ESTABLISH HOME EXERCISE PROGRAM TO MINIMIZE FALL RISK. MAY TEACH THE PATIENT FLOOR RECOVERY WHEN CLINICALLY APPROPRIATE] Goal Patient Goal - H EAL WOUNDS AND RETURN TO BASELINE Goal Provider Goal - A PLAN OF CARE WILL BE ESTABLISHED THAT MEETS THE PATIENTS NEEDS. PATIENT WILL DEMONSTRATE OXYGEN SATURATION WITHIN NORMAL LIMITS OR PATIENTS OPTIMAL LEVEL ESTABLISHED BY THE PHYSICIAN THROUGHOUT CARE. CHANGES TO CO-MORBID CONDITIONS AND ANY NEW CONDITIONS WILL BE IDENTIFIED AND REPORTED TO THE PHYSICIAN. Goal Provider Goal - PATIENT/CAREGIVER TO VERBALIZE, AND CONSISTENTLY DEMONSTRATE EFFECTIVE, SAFE MANAGEMENT OF MEDICATION INCLUDING KNOWLEDGE OF EFFECTIVENESS, POTENTIAL SIDE EFFECTS AND DRUG REACTIONS AND WHEN TO CONTACT THE APPROPRIATE CARE PROVIDER. PATIENT/CAREGIVER WILL BE ABLE TO VERBALIZE UNDERSTANDING OF MEDICATION REGIMEN AND ACCURATELY TAKE MEDICATIONS PRESCRIBED WITHOUT ADVERSE EFFECTS BY END OF CERT PERIOD Goal Provider Goal - PATIENT / CAREGIVER WILL PROMPTLY REPORT SIGNS AND SYMPTOMS OF BLEEDING OR ADVERSE REACTIONS TO THE PHYSICIAN. PATIENT/CAREGIVER WILL VERBALIZE UNDERSTANDING OF ANTITHROMBOTIC THERAPY MANAGEMENT BY END OF EPISODE. Goal Provider Goal - PATIENT/CAREGIVER WILL VERBALIZE UNDERSTANDING OF SIGNS AND SYMPTOMS THAT PUT THE PATIENT AT RISK FOR HOSPITALIZATION /EMERGENCY ROOM VISITS, WHEN TO NOTIFY NURSE/PHYSICIAN OF COMPLICATIONS/DECLINE AND WHEN TO CALL 911. Goal Provider Goal - PATIENT / CAREGIVER WILL VERBALIZE/DEMONSTRATE UNDERSTANDING OF MEASURES TO MANAGE ALTERED CARDIOVASCULAR STATUS BY END OF CERT PERIOD Goal Provider Goal - PATIENT / CAREGIVER WILL VERBALIZE/DEMONSTRATE AN ABILITY TO ADHERE TO SELF-MANAGEMENT OF HTN TO MINIMIZE COMPLICATIONS AND AVOID HOSPITALIZATION BY END OF EPISODE. Goal Provider Goal - PATIENT / CAREGIVER WILL VERBALIZE/DEMONSTRATE AN ABILITY TO ADHERE TO SELF-MANAGEMENT OF HEART ARRHYTHMIA TO MINIMIZE COMPLICATIONS AND AVOID HOSPITALIZATION BY END OF EPISODE. Goal Provider Goal - PATIENT/CAREGIVER WILL VERBALIZE/DEMONSTRATE POSTOPERATIVE CARE TO MINIMIZE COMPLICATION AND AVOID HOSPITALIZATIONS BY THE END OF THE EPISODE. Goal Provider Goal - PATIENT / CAREGIVER WILL VERBALIZE / DEMONSTRATE UNDERSTANDING OF PAIN CONTROL MEASURES BY END OFCERTPERIOD Goal Provider Goal - PATIENT / CAREGIVER WILL VERBALIZE / DEMONSTRATE AN ABILITY TO ADHERE TO SELF-MANAGEMENT OF DIABETES MANAGEMENT BY ENDOFCERTPERIOD. Goal Provider Goal - PATIENT/CAREGIVER WILL VERBALIZE/DEMONSTRATE UNDERSTANDING OF FALL RISK FACTORS AND IMPLEMENT STRATEGIES TO MINIMIZE FALL RISK. PATIENT/CAREGIVER WILL VERBALIZE/DEMONSTRATE AN ABILITY TO ADHERE TO FALL REDUCTION SELF-MANAGEMENT AND LIFE-STYLE CHANGES BY END OF CERT PERIOD Goal Provider Goal - Goal Provider Goal - Goal Provider Goal - Goal Provider Goal - OT STG: PATIENT WILL SAFELY IMPROVE BATHING IN SHOWER FROM BEING UNABLE TO SBA USING AE NEEDED WITHIN 2 WEEKS. OT LTG: PATIENT WILL DEMONSTRATE IMPROVED ABILITY TO PERFORM BATHING/SHOWERING AND REDUCE CAREGIVER BURDEN FROM UNABLE IN SHOWER TO SUP WITHIN 5 WEEKS. OT STG: PATIENT WILL SAFELY IMPROVE LB DRESSING PERFORMANCE FOR COMPRESSION GARMENTS FROM MAX A TO MOD A USING COMP STRATEGIES AND AE NEEDED WITHIN 3 WEEKS. OT LTG: PATIENT WILL DEMONSTRATE IMPROVED ABILITY TO PERFORM LOWER BODY DRESSING FOR COMPRESSIONG GARMENTS TO REDUCE CAREGIVER BURDEN FROM MAX A TO SBA WITHIN 5 WEEKS. OT LTG: PATIENT WILL DEMONSTRATE IMPROVEMENT IN MODIFIED KIRK INDEX SCORE FROM 89 TO 93 INDICATING DECREASED DEPENDENCY ON CAREGIVER ASSISTANCE WITH ACTIVITIES OF DAILY LIVING WITHIN 5 WEEKS. OT STG: PATIENT WILL SAFELY IMPROVE SHOWER TRANSFERS FROM UNABLE TO CGA WITH USE OF AE/ COMP STRATGIES WITHIN 2 WEEKS. OT LTG: PATIENT WILL DEMONSTRATE IMPROVED ABILITY AND SAFETY TO PERFORM BATH/SHOWER TRANSFER FROM UNABLE TO SBA/SUP WITHIN 5 WEEKS. OT LTG: PATIENT WILL DEMONSTRATE IMPROVED BUE MUSCLE STRENGTH EVIDENCED BY AN IMPROVEMENT IN MMT/FUNCTIONAL STRENGTH FROM 4+/ TO 5/5 WITHIN 5 WEEKS IN ORDER TO COMPELTE UB ADLS AND FUNCTIONAL TRANSFERS. OT GOAL: PATIENT/CAREGIVER WILL BE ABLE TO IDENTIFY SIGNS OF HYPER- AND HYPOGLYCEMIA AND VERBALIZE HOW TO MANAGE SYMPTOMS. OT LTG: PATIENT WILL MAINTAIN OXYGEN SATURATION WITHIN PHYSICIAN ORDERED PARAMETERS THROUGHOUT THE EPISODE OF CARE. OT LTG: PATIENT/CAREGIVER WILL BE ABLE TO IMPLEMENT RECOMMENDATIONS SPECIFIC TO FALL REDUCTION FOR IMPROVED ADL/IADL COMPLETION AND HOME SAFETY BY END OF EPISODE. OT LTG: PATIENT WILL BE INDEPENDENT WITH IMPLEMENTATION OF HEP WITHIN 5 WEEKS. OT LTG: PATIENT/CAREGIVER WILL BE ABLE TO IDENTIFY SIGNS OF EXACERBATION OF HEART FAILURE AND VERBALIZE / DEMONSTRATE HOW TO MANAGE SYMPTOMS AND HOW TO ADHERE TO HEART FAILURE SELF-MANAGEMENT AND LIFE-STYLE CHANGES BY END OF EPISODE. OT GOAL: PATIENT/CAREGIVER WILL BE ABLE TO IDENTIFY SIGNS OF EXACERBATION OF HYPERTENSION AND WILL VERBALIZE/DEMONSTRATE AN ABILITY TO ADHERE TO HYPERTENSION SELF-MANAGEMENT AND LIFE-STYLE CHANGES BY END OF EPISODE . OT GOAL: PATIENT WILL NOT EXHIBIT SIGNS AND SYMPTOMS OF ANTICOAGULANT TOXICITY THROUGHOUT THE EPISODE OF CARE. PATIENT/CAREGIVER WILL VERBALIZE UNDERSTANDING OF SIGNS AND SYMPTOMS THAT PUT THE PATIENT AT RISK FOR HOSPITALIZATION /EMERGENCY ROOM VISITS, WHEN TO NOTIFY NURSE/PHYSICIAN OF COMPLICATIONS/DECLINE AND WHEN TO CALL 911. OT GOAL: PATIENT/CAREGIVER WILL BE ABLE TO IDENTIFY SIGNS OF ATRIAL FIBRILLATION EXACERBATION AND WILL VERBALIZE/DEMONSTRATE AN ABILITY TO ADHERE TO ATRIAL FIBRILLATION SELF-MANAGEMENT AND LIFE-STYLE CHANGES BY END OF EPISODE . Goal Provider Goal - PT LTG: PATIENT WILL DEMONSTRATE IMPROVED SAFE FUNCTIONAL MOBILITY AMBULATION WITH STANDBY ASSISTANCE WITH FRONT WHEELED WALKER TO INDEPENDENT WITH SINGLE POINT CANE FOR 150 FEET IN ORDER TO ACCESS ALL AREAS OF THE HOME TO BE ACHIEVED IN 3 WEEKS PT LTG: PATIENT WILL DEMONSTRATE REDUCED FALL RISK EVIDENCED BY IMPROVING TINETTI SCORE FROM 15/28-20/28 IN 3 WEEKS PT LTG: PATIENT WILL DEMONSTRATE INCREASED STRENGTH OF RIGHT LOWER EXTREMITY FROM 3/5O 4/5 INB3 WEEKS PT LTG: PATIENT WILL DEMONSTRATE IMPROVED ABILITY TO SAFELY NEGOTIATE STAIRS FROM CONTACT GUARD ASSIST TO INDEPENDENT IN ORDER TO SAFELY EXIT THE HOME IN 3 WEEKS ... PT STG: PATIENT WILL DEMONSTRATE IMPROVED ABILITY TO PERFORM SIT TO/FROM STAND TRANSFERS TO REDUCE THE RISK OF SKIN BREAKDOWN AND REDUCE FALL RISK FROM STANDBY ASSIST TO INDEPENDENT WHILE MAINTAINING HIP PRECAUTIONS IN 2 WEEKS ... PT LTG: PATIENT WILL NOT EXHIBIT SIGNS AND SYMPTOMS OF ANTICOAGULANT TOXICITY THROUGHOUT EPISODE OF CARE. PATIENTS BLOOD SUGAR WILL REMAIN WELL CONTROLLED WITH SELF-MANAGEMENT THROUGHOUT EPISODE OF CARE. PT GOAL: PATIENT WILL DEMONSTRATE OPTIMAL OUTCOMES INCLUDING INCREASED ROM AND STRENGTH WITH NO COMPLICATIONS FOLLOWING HIP SURGERY BY END OF EPISODE. PT GOAL: PATIENTS HEART FAILURE WILL REMAIN WELL CONTROLLED THROUGHOUT EPISODE OF CARE. PT LTG: PATIENT WILL NOT EXPERIENCE CARDIAC OR RESPIRATORY COMPLICATIONS THROUGHOUT THE EPISODE OF CARE. PT LTG: PATIENT/CAREGIVER WILL DEMONSTRATE ADHERENCE TO FALL REDUCTION SELF-MANAGEMENT AND REDUCING FALL RISK FACTORS TO MINIMIZE FALL RISK BY END OF EPISODE PT LTG: PATIENT WILL BE INDEPENDENT WITH IMPLEMENTATION OF HEP WITHIN 2 WEEKS Encounters Start Date/Time End Date/Time Encounter Type Admission Type Attending [facility] [place] Care Department Encounter ID Discharge Date Discharge Status Discharge Condition Discharge Reason Percent Goals Met 2025-05-11 00:00:00 2025-07-09 00:00:00 Outpatient NEW ADMISSION JEFFREY HAWTHORNE [facility] [id number]
== END 2025-06-06 14:40 | DRG 682 ==
LOC: ANHED 23:57 → ANHIMU 06-01 02:22 → ANH3MED 06-06 12:40 → ANHIMU 06-08 09:23
PROVIDERS: Internal Medicine Nephrology; Nurse Practitioner; Registered Nurse; Admitting Provider Internal Medicine; Emergency Provider Emergency Medicine; PCP Family Medicine; Visit Provider Internal Medicine
DX: N17.9 Acute kidney failure, unspecified (principal); S32.402A Unspecified fracture of left acetabulum, initial encounter for closed fracture; S32.592A Other specified fracture of left pubis, initial encounter for closed fracture; I48.19 Other persistent atrial fibrillation; Z68.41 Body mass index [BMI] 40.0-44.9, adult; E87.1 Hypo-osmolality and hyponatremia; E87.5 Hyperkalemia; I95.9 Hypotension, unspecified; N18.30 Chronic kidney disease, stage 3 unspecified; I25.10 Atherosclerotic heart disease of native coronary artery without angina pectoris; I50.9 Heart failure, unspecified; I27.20 Pulmonary hypertension, unspecified; K74.69 Other cirrhosis of liver; I44.0 Atrioventricular block, first degree; E66.01 Morbid (severe) obesity due to excess calories; K21.9 Gastro-esophageal reflux disease without esophagitis; E11.49 Type 2 diabetes mellitus with other diabetic neurological complication; E78.5 Hyperlipidemia, unspecified; I07.1 Rheumatic tricuspid insufficiency; G47.33 Obstructive sleep apnea (adult) (pediatric); S00.31XA Abrasion of nose, initial encounter; W01.190A Fall on same level from slipping, tripping and stumbling with subsequent striking against furniture, initial encounter; Z96.641 Presence of right artificial hip joint; Z96.659 Presence of unspecified artificial knee joint; I25.2 Old myocardial infarction; Z98.61 Coronary angioplasty status; Z95.1 Presence of aortocoronary bypass graft; Z85.46 Personal history of malignant neoplasm of prostate; Z85.820 Personal history of malignant melanoma of skin; Z91.81 History of falling; Z79.4 Long term (current) use of insulin; Z91.199 Patient's noncompliance with other medical treatment and regimen due to unspecified reason; Z85.528 Personal history of other malignant neoplasm of kidney
CPT/HCPCS: 36415; 70450; 70486; 71045; 72125; 73502; 76705; 76770; 80048; 80053; 81001; 82140; 82550; 82570; 82607; 82728; 82746; 82948; 83036; 83540; 83550; 83605; 83735; 83880; 84100; 84132; 84156; 84300; 84443; 84484; 84540; 85025; 85610; 85730; 85999; 86140; 86704; 86706; 86803; 87340; 93005; 94640; 96365; 96375; 96376; 97110; 97116; 97161; 97165; 97530; 99285; A9270; J0168; J0282; J0461; J0612; J1815; J1938

== ENCOUNTER 2025-06-26 16:55 | Inpatient (IN) | payer MEDICARE, SELFPAY ==
[2025-06-26] VITALS (21 sets, daily range): BP systolic 106–139; BP diastolic 47–68; PULSE 48–59; RESP 14–23; TEMP 35.3–36.7; O2SAT 88–100; BMI 41.2
--- NOTE | ~2025-06-26 | XR_ITS ---
Abdominal radiograph(s) INDICATION: Constipation COMPARISON: No recent comparison TECHNIQUE: 3 films portable AP supine FINDINGS: Scattered colonic gas and stool. Small bowel loops not well seen. Air-fluid levels cannot be assessed on supine projection No abnormal abdominal calcifications. No acute bony abnormality. IMPRESSION: 1. No acute findings. 2. Volume of stool not significantly increased. Reviewed, dictated and finalized at location R.
--- NOTE | ~2025-06-26 | US_ITS ---
EXAMINATION: US renal BI DATE: 06/27/2025 12:10 INDICATION: Acute renal failure TECHNIQUE: Multiple ultrasound grayscale images of the kidneys were obtained. COMPARISON: None. FINDINGS: The right kidney measures 10.9 x 5.6 x 4.0 cm. And 5.2 cm anechoic exophytic cyst at the upper pole the right kidney. The left kidney is suboptimally visualized in the longitudinal plane measuring at least 7.0 cm in length but likely underestimated the true length. Left kidney measures 4.1 x 5.5 cm in orthogonal dimensions. The kidneys demonstrate normal echogenicity. There is no hydronephrosis in either kidney. No stones identified. The bladder is decompressed around a Valenzuela catheter which limits evaluation. Small amount of ascites in the deep pelvis. IMPRESSION: 1. Normal right kidney and suboptimally visualized but normal-appearing left kidney, both with no hydronephrosis. 2. Small amount of ascites in the pelvis. Reviewed, dictated and finalized at location A. IMPRESSION: 1. Normal right kidney and suboptimally visualized but normal-appearing left k idney, both with no hydronephrosis. 2. Small amount of ascites in the pelvis.
--- NOTE | ~2025-06-26 | XR_ITS ---
EXAMINATION: XR chest 2V, 06/26/2025 17:40 CDT HISTORY: short of breath COMPARISON: No comparisons available. Technique: 2 views obtained. Findings: Mild pulmonary venous congestion. COPD changes noted. No pneumothorax. Mild cardiomegaly. Mediastinal and hilar contours are within normal limits. Post sternotomy. Impression: Mild CHF Reviewed, dictated and finalized at location A. Impression: Mild CHF
--- NOTE | 2025-06-26 17:02 | ECG_ITS ---
Test Date: 2025-06-26 17:04:42 Measurements Intervals [place] Rate: 55 P: 0 AR: 0 QRS: -56 QRSD: 148 T: 154 QT: 506 QTc: 486 Interpretive Statements ATRIAL FIBRILLATION WITH SLOW VENTRICULAR RESPONSE INTRAVENTRICULAR CONDUCTION DELAY [130+ ms QRS DURATION] Compared to ECG 06/01/2025 00:05:55 ATRIAL FIBRILLATION HAS REPLACED SINUS RHYTHM Electronically Signed On 06-27-2025 14:17:11 CDT by Chinedu Seaman M.D.
--- NOTE | 2025-06-26 17:09 | ED_ITS ---
HPI - SOB/Dyspnea General Chief Complaint: Shortness of Breath/Dyspnea Stated Complaint: sob Time Seen by Provider: 06/26/25 17:07 Source: patient and EMS Mode of arrival: EMS Limitations: no limitations History of Present Illness HPI Narrative: Patient is 79 years old white male came from home by ambulance complaining of shortness of breath and weakness for a while got worse over the last 24 hours. Patient got out of rehab recently after 2 months rehabilitation. He denies any fever, chills, nausea, vomiting, chest pain, abdominal pain or back pain. Related Data Home Medications ?Medication ?Instructions ?Recorded ?Confirmed ?Last Taken ?Type evolocumab 140 mg/mL subcutaneous 140 mg subcut Q2WEEK S 05/07/21 06/06/25 04/05/25 History pen injector (Repatha IntroFlyick) polyethylene glycol 3350 17 gram 17 g PO QAM PRN const ipation 06/01/25 06/06/25 Unknown History oral powder packet (Miralax) Allergies Allergy/AdvReac Type Severity Reaction Status Date / Time Penicillins Allergy Severe Anaphylaxis Verified 06/06/25 15:43 adhesive tape Allergy Mild rash Verified 06/06/25 15:43 liraglutide Allergy Unknown Hives / Verified 06/06/25 15:43 Red Face Uegsbjy-GFY-DdE Reductase AdvReac Unknown Muscle Verified 06/06/25 15:43 Inhibitor (Iuayvbn-Ytp-Gjl Spasms Reductase Inhibitor) Review of Systems 2 Review of Systems: All systems reviewed & are unremarkable except as noted in HPI and below PMFSH Past Medical History Medical History Hypotension Atrial fibrillation Cirrhosis Pulmonary hypertension Tricuspid regurgitation severe Hyponatremia Acute exacerbation of CHF (congestive heart failure) History of renal cell carcinoma History of prostate cancer Skin tear of right lower leg without complication Pre-ulcerative corn or callous Kidney mass Pancreatic mass Nausea & vomiting Anemia Acquired deformity of left thigh Preoperative clearance Foot lesion Cellulitis Elsa tropicalis infection Fall Bronchitis Elevated carbon dioxide level Alkaline phosphatase elevation Prostate cancer screening Body mass index (BMI) of 40.1 to 44.9 in adult Degenerative joint disease of knee Renal malignant neoplasm Prostate CA Intracranial atherosclerosis Eczema Hypertensive urgency Non-STEMI (non-ST elevated myocardial infarction) Most recent non-STEMI 12/11/2018 Obstructive sleep apnea Intolerant to CPAP Prostate cancer Renal cell carcinoma Elevated PSA, between 10 and less than 20 ng/ml Vertigo Morbid (severe) obesity due to excess calories Abnormality of gait CAD (coronary artery disease) Multivessel coronary artery disease with stents to the proximal and distal LAD, mid right coronary artery July 2014 with prior catheterization performed [facility] January 2018 had severe diffuse 3 vessel coronary artery disease with multiple stenoses of about 70% and mid to distal LAD between previously placed proximal and distal stents, 50-70% diffuse stenosis of the circumflex with a proximal stenosis of: To and total occlusion of a the marginal branch and diffuse distal right coronary artery disease with occluded RPDA referred for CABG DM neuropathy with neurologic complication GERD (gastroesophageal reflux disease) Dyslipidemia Hypertension Surgical History Surgical History History of right hip hemiarthroplasty Status post open reduction with internal fixation of fracture Of left leg at age 21 Stented coronary artery Hx of tonsillectomy S/P CABG (coronary artery bypass graft) (04/2018) YESENIA to LAD, vein graft to OM, radial graft to RPDA, RCA was diffusely diseased and not a great target for bypass, LAD was also diffusely diseased Family History Family History Father Family history of heart disease in male family member before age 55 Acute myocardial infarction Hypertension Mother Family history of heart disease in male family member before age 55 Acute myocardial infarction Emphysema of lung Asthma Sibling Family history of heart disease in male family member before age 55 Acute myocardial infarction Hypertension Polycystic kidney disease Sibling Family history of heart disease in male family member before age 55 Acute myocardial infarction Breast cancer Sibling Emphysema of lung Cerebrovascular accident Son Acute myocardial infarction Social History Social History Social History: He is and lives alone. He has an adult son and a daughter. 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 He is a lifelong nonsmoker and does not drink alcohol. Code status: Full code (he would not want to be on long-term life support or have a tracheostomy or PEG tube.) Surrogate decision maker: Adjacent (son) Smoking status: Never smoker Second hand tobacco smoke exposure: No Alcohol intake: never Substance use: never Substance use type: does not use Do You Feel Safe in your Home?: Yes Lack of Transportation: No Lack of Food: Never True Current Housing: I Have Housing Concerned About Future Housing: No Difficulty Paying Gas/Electric Bills: No Difficulty Paying for Meds: No Currently Unemployed: No Education: High School Diploma/GED Difficulty w/ Childcare or Family Care: No Living arrangements: alone Occupation/Education: retired Gender identity (if verbalized by the patient): Male Sexual Orientation (if Verbalized by the Patient): Straight or Heterosexual Spiritual care concerns: No Exam 2 Narrative: General appearance: Well-developed, well-nourished Skin: Normal color, 4+ edema bilaterally, compression stocking on Head: Normocephalic, nontraumatic Eyes: Clear conjunctiva ENT: Dry oral cavity and lips Neck: Supple, nontender Chest and respiratory: Airway patent, no respiratory distress, no accessory muscle use, basilar rales bilaterally Heart: Bradycardia Abdomen: Soft, nontender, no organomegaly, quiet bowel sounds Vascular: Normal peripheral pulses, normal capillary refill. 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 is normal as tested, no gross motor deficit Course Vital Signs Vital signs: Vital Signs Temperature 36.7 C 06/26/25 16:56 Pulse Rate 57 L 06/26/25 16:56 Respiratory Rate 15 06/26/25 16:56 Blood Pressure 115/54 L 06/26/25 16:56 Pulse Oximetry 100 06/26/25 16:56 Oxygen Delivery Room Air 06/26/25 16:56 Temperature 36.7 C 06/26/25 16:56 Pulse Rate 55 L 06/26/25 18:38 Respiratory Rate 20 06/26/25 18:38 Blood Pressure 106/47 L 06/26/25 17:31 Pulse Oximetry 98 06/26/25 17:46 Oxygen Delivery Room Air 06/26/25 16:56 MDM - SOB/Dyspnea MDM Narrative Medical decision making narrative: Patient presents with general weakness and shortness of breath for a while got worse lately Vital signs showing blood pressure 115/54, heart rate 57 history of bradycardia Physical examination showing pale skin, 4+ edema lower extremity bilaterally, dry oral cavity and lips Differential diagnosis include pneumonia, congestive heart failure, pleural effusion, dehydration, electrolyte imbalance less likely coronary artery disease Blood workup today includes CBC, CMP, proBNP, troponin and coags showed WBC 2.8, hemoglobin 8.3, platelet count 128, INR 2.6, sodium 127, potassium 5.1, BUN 99, creatinine 2.9 compared to 1.26 days ago, pro BMP 2980 Chest x-ray mild CHF Diagnosis: Pancytopenia, CHF, AALIYAH, hyponatremia Admit to hospitalist Differential Diagnosis Differential diagnosis: Likely other (As above) Medical Records Attestation: I reviewed the patient's medical records. Lab Data Attestation: I reviewed the patient's lab results. 06/26/25 17:11 06/26/25 17:11 Labs: Lab Results 06/26/25 06/26/25 Range/Units 17:11 18:50 WBC 2.8 L (4.5-10.0) K/mm3 RBC 2.53 L (4.6-6.20) M/mm3 Hgb 8.3 L (14.0-18.0) g/dL Hct 25.1 L (42.0-52.0) % MCV 99.2 (80-100) fl MCH 32.8 (26-34) pg MCHC 33.1 (32-36) g/dl RDW 15.9 H (11.5-14.5) % Plt Count 128 L (150-375) k/mm3 MPV 9.6 (7.4-10.4) fl Immature Gran % (Auto) 0.4 (0-0.5) % Neut % (Auto) 74.1 H (45.5-73.1) % Lymph % (Auto) 11.0 L (18.3-44.2) % [place] % (Auto) 12.7 H (2.6-8.5) % Eos % (Auto) 1.1 (0-4.4) % Baso % (Auto) 0.7 (0.2-1.2) % Lymph # (Auto) 0.31 L (0.9-3.2) K/mm3 [place] # (Auto) 0.4 (0.1-0.6) K/mm3 Eos # (Auto) 0.0 (0-0.3) K/mm3 Baso # (Auto) 0.0 (0.0-0.1) K/mm3 Abs Immat Gran (auto) 0.01 (0.00-0.031) K/mm3 Absolute Neuts (auto) 2.1 (1.3-6.7) K/mm3 Absolute Nucleated RBC 0.000 (0.0-0.012) K/mm3 Nucleated RBC % 0.0 (0.0-0.2) % PT 26.6 H (11.1-14.7) Seconds INR 2.6 APTT 45.1 H (22.3-36.8) Seconds Sodium 127 L (137-145) mmol/L Potassium 5.1 H (3.4-5.0) mmol/L Chloride 93 L (98-107) mmol/L Carbon Dioxide 25 (22-30) mmol/L Anion Gap 9 (4-12) mmol/L BUN 99 H D (9-20) mg/dL Creatinine 2.96 H (0.7-1.3) mg/dL Estim Creat Clear Calc Not Reportable Estimated GFR 21 L (59 - ) Glucose 96 (65-110) mg/dL Lactic Acid 1.1 (0.7-2.0) mmol/L Calcium 8.8 (8.4-10.2) mg/dL Total Bilirubin 1.5 H (0.2-1.3) mg/dL AST 47 (17-59) U/L ALT 22 (6-50) U/L Alkaline Phosphatase 211 H (38-126) U/L Troponin I 0.031 (0.000-0.034) ng/mL C-Reactive Protein 2.3 H (<1.0) mg/dL NT-Pro-B Natriuret Pep 2980 H (19.9-100) pg/mL Total Protein 6.8 (6.3-8.2) g/dL Albumin 3.4 L (3.5-5.1) g/dL Urine Color Yellow (Yellow) Urine Appearance Clear (Clear) Urine pH 5.5 (5.0-9.0) Ur Specific [place] 1.014 (1.001-1.035) Urine Protein Trace (Negative) mg/dL Urine Glucose (UA) Negative (Negative) mg/dL Urine Ketones Negative (Negative) mg/dL Ur Blood (Man) Negative (Negative) Urine Nitrate Negative (Negative) Urine Bilirubin Negative (Negative) Urine Urobilinogen 1.0 (<2.0) mg/dL Add Ur Microanalysis Reviewed Leukocyte Esterase Rfl Negative (Negative) BROOKE/UL Urine RBC 0-2 (0-2) /hpf Urine WBC 0-5 (0-3) /hpf Ur Squamous Epith Cells None seen (Few) /hpf Urine Bacteria None seen /hpf Urine Casts 6-10 ABG Data ABG results: 06/26/25 17:25 Puncture Site Right radial ABG pH 7.444 ABG pCO2 36.1 ABG pO2 88.9 ABG PO2/FiO2 Ratio 4.23 ABG HCO3 24.2 ABG O2 Saturation 97.1 ABG O2 Content 13.0 L ABG Base Excess 0.3 A-a Gradient 17.6 Oxyhemoglobin 95.6 Total Hemoglobin 9.6 L O2 Delivery Device Room air O2 Liters/Min Not Reportable FiO2 21 Imaging Data Radiologist's impression: Impressions Chest X-Ray 06/26/25 17:49 Impression: Mild CHF ECG Data EKG #1: Attestation: I personally reviewed and interpreted this ECG as follows: ECG completion date: 06/26/25 Interpretation: Sinus bradycardia at 55 beats per minute, inferior myocardial infarction probably old, left axis deviation, artifact EKG #2: Attestation: I personally reviewed and interpreted this ECG as follows: ECG completion date: 06/26/25 Prior ECG tracings: available for review Interpretation: AFib with slow ventricular response at 52 beats per minute, left axis deviation. Critical Care Time Critical Care Time Critical Care Time: No Discharge Plan Discharge Clinical Impression: Pancytopenia, Hyponatremia, AALIYAH (acute kidney injury), CHF (congestive heart failure) Patient Disposition: Still a Patient Condition: Guarded Prognosis Additional Instructions: Admit to hospitalist Patient Language: Tuvaluan Prescriptions: No Action Repatha SureClick 140 mg/mL pen injector 140 mg subcut Q2PPBHU Rx Instructions: 1ST AND 15TH OF MONTH acetaminophen [Pain Reliever (acetaminophen)] 325 mg tablet 650 mg PO Q6H PRN (Reason: Pain (Scale Score 1-3)) Qty: 300 0RF polyethylene glycol 3350 [Miralax] 17 gram Powder In Packet 17 g PO QAM PRN (Reason: constipation) insulin glargine [Lantus U-100 Insulin] 100 unit/mL Solution 25 unit subcut Q12HR Qty: 10 0RF lactulose 10 gram/15 mL Solution 20 g PO QAM Qty: 300 0RF polysaccharide iron complex [Poly-Iron] 150 mg iron capsule 150 mg PO DAILY Qty: 90 1RF nitroglycerin 0.4 mg tablet, sublingual See Rx Instructions .ROUTE .COMPLEX Qty: 100 0RF Dose Instruction: DISSOLVE 1 TABLET UNDER THE TONGUE EVERY 5 MINUTES NEEDED FOR CHEST PAIN. TO BE TAKEN NO MORE THAN THREE TIMES DAILY Rx Instructions: DISSOLVE 1 TABLET UNDER THE TONGUE EVERY 5 MINUTES NEEDED FOR CHEST PAIN. TO BE TAKEN NO MORE THAN THREE TIMES DAILY (DME) [employer] [place] 3 Sensor Device See Rx Instructions .Route Qty: 1 5RF Rx Instructions: As directed tamsulosin 0.4 mg Capsule 0.4 mg PO QPM Qty: 30 0RF cefdinir 300 mg Capsule 300 mg PO BID 2 Days Qty: 4 0RF furosemide 20 mg Tablet 60 mg PO BIDWM 15 Days Qty: 90 0RF Eliquis 5 mg Tablet 5 mg PO Q12HR Qty: 60 0RF sodium chloride 1,000 mg tablet,soluble 1,000 mg PO BID Qty: 60 0RF melatonin 3 mg Tablet 3 mg PO HS Qty: 0 0RF pantoprazole 40 mg tablet,delayed release (DR/EC) 40 mg PO QAM Qty: 30 0RF ranolazine 500 mg tablet extended release 12 hr 500 mg PO Q12H Qty: 60 0RF Follow-up/Referrals: Randy Borrero MD [Primary Care Provider, Family Practice]
[2025-06-26 17:18] LABS: Hematocrit 25.1 % (42.0-52.0); Hemoglobin 8.3 g/dL (14.0-18.0); Immature Granulocyte Percent A 0.4 % (0-0.5); Lymphocytes Absolute Auto 0.31 K/mm3 (0.9-3.2); Mean Corpuscular HGB Conc 33.1 g/dl (32-36); Mean Corpuscular Hemoglobin 32.8 pg (26-34); Mean Corpuscular Volume 99.2 fl (80-100); Nucleated Red Blood Cells Absolute Auto 0.000 K/mm3 (0.0-0.012); Nucleated Red Blood Cells Perc 0.0 % (0.0-0.2); Platelet Count Result 128 k/mm3 (150-375); Red Blood Count 2.53 M/mm3 (4.6-6.20); White Blood Count 2.8 K/mm3 (4.5-10.0)
[2025-06-26 17:27] LABS: Alveolar/Arterial O2 Gradient 17.6 mmHg; Fractional Inspired Oxygen 21 %; HCO3 ABG 24.2 mEq/l (22.0-26.0); Oxygen Content ABG 13.0 %vol (16.0-22.0); Oxygen Saturation ABG 97.1 % (95.0-100.0); PCO2 ABG 36.1 mmHg (35.0-45.0); PO2 ABG 88.9 mmHg (80.0-100.0); PO2 FiO2 Ratio Arterial Blood 4.23 %
[2025-06-26 17:28] LABS: Modified Allen's Test Pass; Site Drawn RIGHT RADIAL
[2025-06-26 17:47] LABS: INR 2.6; Prothrombin Time 26.6 Seconds (11.1-14.7)
--- OUTSIDE RECORDS SUMMARY | 2025-06-26 17:47 | XMS_ITS | Encounter Summary ---
Author Organization [facility] Healthcare Address [address] [place] [address] Care Team Providers Care Band Teacher Name Role Phone Leonila Chapa MD Primary Care Provider Chinmay ShannonM Unavailable [phone] Zach Ojeda Unavailable [phone] Yahaira Westfall MD Unavailable [phone] Encounter Details Date Type Department Care Team (Late st Contact Info) Description 05/21/2021 Telephone [facility] - Interventional Radiology [address] [place] [address] Cristina Guzman RN Social History Tobacco Use Types Packs/Day Years Used Date Smoking Tobacco: Never Smokeless Tobacco: Never Alcohol Use Standard Drinks/Week Comments Yes 2 (1 standard drink = 0.6 oz pur e alcohol) seldom Sex and Gender Information Value Date Recorded Sex Assigned at Not on file 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 Gender Identity Not on file Sexual Orientation Not on file documented as of this encounter Plan of Treatment Not on file documented as of this encounter Visit Diagnoses Not on filedocumented in this encounter Additional Health Concerns Infection Onset Date Last Indicated Resolved Time COVID: Suspected 03/16/2022 03/16/2022 03/16/2022 5:28 PM CDT COVID: Suspected 10/14/2023 10/14/2023 10/14/2023 3:53 AM HEEL SEWER documented as of this encounter Care Teams Band Teacher Relationship Specialty Start Date End Date Leonila Chapa MD [address] [facility] [address] [place] [address] PCP - General Family Medicine 12/29/17 Chinmay Shannon, SILVA [address] [place] [address] Referring Physician Foot and Ankle Surg 08/26/22 Zach Ojeda PA [address] [facility] [address] [facility] [place] [address] Orthopedic Surgery 12/06/22 Yahaira Westfall MD [address] [facility] [place] [address] Consulting Physician Internal Medicine 05/20/23 documented as of this encounter
--- OUTSIDE RECORDS SUMMARY | 2025-06-26 17:47 | XMS_ITS | Clinical Summary ---
Author Organization [facility] Address [address] [place] [id number] Care Team Providers Care Electrical Systems Engineer Name Role Phone Leonila Chapa MD Primary Care Provider [phone] Social History Tobacco Use Types Packs/Day Years [...] series) 2020 COVID-19 Vaccine ( - season) 2025 09/05/2022, 08/22/2021, 12/18/2020, Additional history exists DTaP, [...] patient's age to complete this topic Insurance [facility] Care Teams Electrical Systems Engineer Relationship Specialty Start Date End Date Leonila Chapa MD [address] [facility] [address] [place] [address] PCP - General FAMILY PRACTICE 06/22/24
--- OUTSIDE RECORDS SUMMARY | 2025-06-26 17:47 | XMS_ITS | Encounter Summary ---
Author Organization [facility] Healthcare Address [address] [place] [address] Care Team Providers Care Home Health Nurse Licensed Practical Name Role Phone Leonila Chapa MD Primary Care Provider Chinmay Shannon DPM Unavailable [phone] Zach Ojeda Unavailable Yahaira Westfall MD Unavailable [phone] Encounter Details Date Type Department Care Team (Late st Contact Info) Description 05/16/2018 Orders Only [facility] Health Information Management [address] [place] [id number] Scanning, Provider Social History Tobacco Use Types Packs/Day Years Used Date Smoking Tobacco: Never Smokeless Tobacco: Never Alcohol Use Standard Drinks/Week Comments Yes 2 (1 standard drink = 0.6 oz pur e alcohol) seldom Sex and Gender Information Value Date Recorded Sex Assigned at Not on file 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 Gender Identity Not on file Sexual [...] COVID: Suspected 10/14/2023 10/14/2023 10/14/2023 3:53 AM 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 WORKER documented as of this encounter Care Teams Home Health Nurse Licensed Practical Relationship Specialty Start Date End Date Leonila Chapa MD [address] [place] [address] [address] [place] [address] PCP - General Family Medicine 12/29/17 Chinmay Shannon DPM [address] [place] [address] Referring Physician Foot and Ankle Surg 08/26/22 Zach Ojeda PA [address] [facility] [address] [facility] [place] [address] Orthopedic Surgery 12/06/22 Yahaira Westfall MD [address] [facility] [place] [address] Consulting Physician Internal Medicine 05/20/23 documented as of this encounter
--- OUTSIDE RECORDS SUMMARY | 2025-06-26 17:47 | XMS_ITS | Clinical Summary ---
Author Organization [facility] Address [address] [place] [address] Care Team Providers Care Legal Paraprofessional Name Role Phone Leonila Chapa MD Primary Care Provider + Source Comments [facility],non-owned Affiliates and Associated Physician Practices is amultiple site organization consisting of ambulatory clinics and hospital sitesin [place], [place], [place] and [place]. This disclosure is being madepursuant to the Care Everywhere program and may not contain all information available regarding this patient. 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
--- OUTSIDE RECORDS SUMMARY | 2025-06-26 17:47 | XMS_ITS | Clinical Summary ---
Author Organization [facility] [address] Address [address] [place] [address] Care Team Providers Care Network Security Analyst Name Role Phone Leonila Chapa MD Primary Care Provider Chinmay Shannon DPM Unavailable [phone] Zach Ojeda Unavailable Yahaira Westfall MD Unavailable [phone] Allergies Active Allergy Reactions Criticality Noted Date Comments Atorvastatin Other (See comments) Low Reaction: Penicillins Anaphylaxis High 03/19/2013 Xqdcwrz-Quj-Tho Reductase Inhibitors Muscle pain Medium 01/20/2018 Atorvastatin [...] 12 hr tabletIndicatio ns:Coronary artery disease of [place] artery of [place] heart with stable angina pectoris TAKE 1 [...] then stop. 10 tablet 05/13/20 25 Active Saccharomyces boulardii (FLORASTOR) 250 mg capsule Take 1 capsule (250 mg total) by mouth 2 (two) times a day 023 Discontin ued(Other ) Active Problems Problem Noted Date Diagnosed Date Pancytopenia 10/15/2023 Assessment & Plan (10/15/2023 4:30 PM SNOW REMOVAL SUPERVISOR): Newly noted, unclear etiology. Patient reports [...] 10/14/2023 Assessment & Plan (10/15/2023 4:23 PM SNOW REMOVAL SUPERVISOR): Mechanical as per history. Less likely orthostatic (though has history of 2-3 poor intake and AALIYAH), much less likely neurogenic or cardiogenic. HCT, c-spine CT, XR pelvis & L humerus without fracture and without intracranial bleed -Monitor L orbit hematoma, patient denies visual changes or headache. -PT/OT recommending home with HH AALIYAH (acute kidney injury) 10/14/2023 Assessment & Plan (10/15/2023 4:23 PM SNOW REMOVAL SUPERVISOR): Likely pre-renal in the setting of 2-3 days of N/V, and then poor intake after fall -Monitor off spironolactone and Lasix, instructed to resume 10/17 with slowly improving AALIYAH Nausea 10/14/2023 Assessment & Plan (10/15/2023 4:24 PM SNOW REMOVAL SUPERVISOR): Nausea/vomiting x2-3 days. Non bloody non bilious. Unclear etiology but more likely viral gastroenteritis. Resolved and patient tolerating diet. Leg swelling 10/14/2023 Assessment & Plan (10/15/2023 4:26 PM SNOW REMOVAL SUPERVISOR): Bilateral, L>R, chronic. Intermittent gets worse. [...] 10/14/2023 Assessment & Plan (10/14/2023 11:06 AM SNOW REMOVAL SUPERVISOR): Outpatient f/u A-fib 10/14/2023 Assessment & Plan (10/14/2023 11:08 AM SNOW REMOVAL SUPERVISOR): Chronic, continuing the home Eliquis. Based on PT and risk of repeat falls, may need risks/benefits couselling Follow-up examination 10/14/2023 Assessment & Plan (10/15/2023 4:28 PM SNOW REMOVAL SUPERVISOR): CT 10/14/23 incidentally noted a Serpiginous [...] 10/14/2023 Assessment & Plan (10/15/2023 4:28 PM SNOW REMOVAL SUPERVISOR): CABG in 2018. BNP around prior baseline, [...] (08/14/2022): Added automatically from request for surgery [id number] Pre-op evaluation 06/26/2022 Demand ischemia of myocardium [...] 12/29/2017 Assessment & Plan (10/15/2023 4:22 PM SNOW REMOVAL SUPERVISOR): Uses long acting 25u BID + [...] Encounters Date Type Department Care Team Description 06/23/2025 Telephone [facility] Cardiology [address] [place] [address] Mimi Conde NP 06/23/2025 Telephone [place] [address] [place] [phone] Juwan Brown MD 06/13/2025 Orders Only [address] [phone] Yonathan Vences MD 05/24/[address] [phone] Juwan Brown MD 05/23/2025 Results Follow-Up [address] [phone] Mimi Conde NP Basic metabolic panel 05/20/[address] [phone] Juwan Brown MD 05/13/2025 2:00 PM CDT Office Visit [address] [phone] Mimi Conde NP Chronic diastolic heart failure (HCC) (Primary Dx); Edema, lower extremity; Paroxysmal atrial fibrillation (HCC); Chronic anticoagulation; Coronary artery disease of [place] artery of [place] heart with stable angina pectoris 05/10/[address] [address] Juwan Brown MD 04/13/2025 Orders Only [facility] Information Management [address] [place] [address] Scanning, Provider 04/07/[address] [phone] Juwan Brown MD from Last 3 Months [...] of : Myocardial infarction Cancer Maternal Grandmother Janelreji Allergy (severe) Mother Maira Heart failure Mother [...] Simeon Father Colby (Age 52) Maternal Grandmother Rosenstiel Mother Maira (Age 79) Sister Leigh (Age [...] on file Legal Sex Male 7:32 PM SNOW REMOVAL SUPERVISOR Gender Identity Not on file Sexual Orientation Not on file Obstetrics History Last Filed Vital Signs Vital Sign Reading Time Taken Comments Blood Pressure 110/64 05/13/2025 2:08 PM CDT Pulse 86 05/13/2025 2:08 PM CDT Temperature 36.2 C (97.2 F) 10/15/2023 3:35 PM SNOW REMOVAL SUPERVISOR Respiratory Rate 18 10/15/2023 8:00 AM SNOW REMOVAL SUPERVISOR Oxygen Saturation 97% 05/13/2025 2:08 PM [...] 04/13/2024 10/14/2023, 06/2024, 11/05/2022, Additional history exists Fall Risk Assessment 10/15/2024 10/15/2023, 08/03/2020, 05/05/2020 Covid-19 Vaccine (4 - 2024-2 6 season) 2025 08/22/2021, 12/18/2020, 11/27/2020 Influenza Vaccine (#1) 2025 , 09/16/2020, 12/17/2019 Lipid Panel 12/06/2025 12/06/2024, 12/2023, 11/07/2023, Additional history exists eGFR 05/21/2026 05/21/2025, 10/06, 10/14/2023, Additional history exists DTaP/Tdap/Td Vaccine (2 - Td or Tdap) 10/14/2033 10/14/2023 Colon Cancer Screening-CT Colonography Discontinued 09/24/2023 Colon Cancer Screening-Colonoscopy Discontinued 09/24/2023 Colon Cancer Screening-DNA Stool Discontinued 09/24/20 Colon Cancer Screening-FIT Discontinued 09/24/2023 Colon Cancer Screening-FOBT Discontinued 09/24/2023 Colon Cancer Screening-Sigmoidoscopy Discontinued 09/24/2023 Colorectal Cancer Screening Discontinued Medical Devices Implanted Type Area Aircraft Inspector Device Identifier Shelf Expiration Date Model / Serial / Lot Daig [employer]ael[employer] [id number] Angio-Seal Vip Bondek-Plus 6fr .035in 70cm Hemostatic Latex Free - [id number] Implanted:Qty: 1 on 01/06/2019 by Sanjiv Starkey MD at [facility] Collagen Right: Groin [employer] 08/05/2019 [id number] / / [id number] [employer] Misael Angio-Seal Vip 6fr Closere Device [id number] - [id number] Implanted:Qty: 1 on 08/07/2022 by Sanjiv Starkey MD at [facility] 03/05/2023 [id number] / / [id number] [employer] Cement Bone Simplex Gentamicin High Viscosity 40gm 6195-1-001 - [id number] Implanted:Qty: 1 on 12/03/2022 by Thuan Servin MD at [facility] Left: Knee [employer] 05/05/2024 6195-1-001 / / [id number] [employer] Attune Cruciate Retain Cementless Knee Left 9 Component Femoral [id number] - [id number] Implanted:Qty: 1 on 12/03/2022 by Thuan Servin MD at [facility] Left: Knee [employer] 06/05/2031 [id number] / / [id number] [employer] Attune 41mm Cemented Medialize Knee Dome Patellar Aox Sterile [id number] - [id number] Implanted:Qty: 1 on 12/03/2022 by Thuan Servin MD at [facility] Left: Knee [employer] 03/05/2027 [id number] / / [id number] [employer] Attune 10mm Cruciate Retaining Fix Bearing Knee 9 Insert Tibial [id number] - [id number] Implanted:Qty: 1 on 12/03/2022 by Thuan Serivn MD at [facility] Left: Knee [employer] 08/05/2027 [id number] / / [id number] 1506-21-010 Attune Tibial Base Affixium Fixed Bearing Size 10 Implanted:Qty: 1 on 12/03/2022 by Thuan Servin MD at [facility] Left: Knee [employer] [id number] 09/04/2032 [id number] / N/A / [id number] Procedures Procedure Name Priority Date/Time Associated Diagnosis Comments CARDIOLOGY DOCUMENT SCAN Routine 06/01/2025 4:41 PM CDT BASIC METABOLIC PANEL Routine 05/21/2025 7:17 AM CDT Chronic diastolic heart failure (HCC) CARDIOLOGY DOCUMENT SCAN 04/13/2025 LIPID PANEL Routine 12/06/2024 1:28 PM SNOW REMOVAL SUPERVISOR HEMOGLOBIN A1C STAT 10/14/2023 2:19 AM SNOW REMOVAL SUPERVISOR COLONOSCOPY 09/24/2023 2:16 PM SNOW REMOVAL SUPERVISOR from Last 3 Months or Most Recently Relevant to Health Maintenance Results * Cardiology Document Scan (06/01/2025 4:41 PM CDT) Anatomical Region Laterality Modality Other us Yonathan Vences MD [facility] PROC EDURES Final Result * (ABNORMAL) Basic metabolic panel (05/21/2025 7:17 AM CDT) Glucose 91 65 - 139 mg/dL [facility] [...] CDT FASTING:NO FASTING: NO us Mimi Conde IT ADMINISTRATIVE ASSISTANT LAB BLOOD ORDERABLES Martha l Result [facility] [address] [phone] * Cardiology Document Scan (04/13/2025) Anatomical Region Laterality Modality Other Provider Scanning [facility] C[facility] SERVICES PROCEDURES Final Result * (ABNORMAL) Lipid panel (12/06/2024 1:28 PM SNOW REMOVAL SUPERVISOR) SCRIBED Cholesterol, Total 107 30 - 199 mg/dL [facility] SCRIBED Triglycerides 75 <=149 mg/dL [facility] SCRIBED HDL 37(A) >=40 mg/dL [facility] SCRIBED LDL 54 <=129 mg/dL [facility] Scribed Non-HDL Cholesterol 70 NONE mg/dL [facility] SCRIBED Total Cholesterol/HDL Ratio 107 NONE [facility] Blood Historical Provider LAB BLOOD ORDERABLES Edit ed Result - Final [facility] * (ABNORMAL) Hemoglobin A1c (10/14/2023 2:19 AM SNOW REMOVAL SUPERVISOR) Hgb A1C 6.4(H) 4.0 - 5.6 % [facility] Estimated Average Glucose 137 mg/dL [facility] Comment: The ADA recommends reporting an estimated Average Glucose (eAG) with all Hemoglobin A1c results using the equation derived from a study of 507 normal and diabetic adults. Minority populations were underrepresented and children were not included. (Diabetes Care 2020; 43(S1): S66-S76). The eAG is not equivalent to a fasting glucose. Blood 10/14/2023 2:19 AM SNOW REMOVAL SUPERVISOR 10/14/2023 2:28 AM SNOW REMOVAL SUPERVISOR Maribell Basilio MD LAB BLOOD ORDERABLES Final Result [facility] Department [place] [address] * COLONOSCOPY (09/24/2023 2:16 PM SNOW REMOVAL SUPERVISOR) Anatomical Region Laterality Modality Other Narrative Procedure Note Alli Ervin MD - 09/24/2023 2:16 PM [facility] Patient Name: Lopez Guzman Procedure Date: 09/24/2023 2:16 PM Date of : 1945 Admit Type: Outpatient Age: 77 Gender: Male Attending MD: Alli Ervin M.D. Room: [facility] 9 Note Status: Finalized Procedure: [...] scope was passed under direct vision.The CF [id number] endoscope was introduced through the anus and advanced to the cecum, identified by appendiceal orifice and ileocecal valve. The colonoscopy was performed without difficulty. The patient tolerated the procedure well. The qualityof the bowel preparation was evaluated using the BBPS ([place] Bowel Preparation Scale) with scores of:Right Colon [...] On: 09/24/2023 2:16 PM Recognized by the [place] [employer] for promoting quality in endoscopy Alli Ervin MD ENDOSCOPY PROCEDURES Final Result from Last 3 Months or Most Recently Relevant to Health Maintenance Insurance BCBS MEDICARE [place] [facility] OTHER Address: [address] [place] [id number] [facility] MEDICARE MEDICARE MEDICARE [employer] MEDICARE SUPPLEMENT Advance Directives For more information, please contact: [phone] Documents on File Type Date Recorded Patient Vacuum Pan Tender Expl anation Power of Attendant Child Activity 08/15/2021 7:19 AM * Full Code (Latest [...] Butler Daughter Health Care Agent Care Teams Network Security Analyst Relationship Specialty Start Date End Date Leonila Chapa MD [address] [facility] [address] [place] [address] PCP - General Family Medicine 12/29/17 Chinmay Shannon DPM [address] [place] [address] Referring Physician Foot and Ankle Surg 08/26/22 Zach Ojeda PA [address] [facility] [address] [address] [place] [address] Orthopedic Surgery 12/06/22 Yahaira Westfall MD [address] [place] [address] Consulting Physician Internal Medicine 05/20/23
--- OUTSIDE RECORDS SUMMARY | 2025-06-26 17:47 | XMS_ITS | Encounter Summary ---
Author Organization [facility] Address [address] [place] [address] Phone Care Team Providers Care Service Delivery Analyst Name Role Phone Leonila Chapa MD Primary Care Provider Chinmay Shannon DPM Unavailable [phone] Zach Ojeda Unavailable [phone] Yahaira Westfall MD Unavailable [phone] Encounter Details Date Type Department Care Team (Late st Contact Info) Description 05/20/2023 Telephone [facility] [address] [place] [address] Maureen Perez RN Social History Tobacco Use [...] file Legal Sex Male 7:32 PM SUPERVISOR HARD CANDY Gender Identity Not on file Sexual Orientation [...] Suspected 10/14/2023 10/14/2023 10/14/2023 3:53 AM SUPERVISOR HARD CANDY documented as of this encounter Care Teams Service Delivery Analyst Relationship Specialty Start Date End Date Leonila Chapa MD [address] [facility] [address] [place] [address] PCP - General Family Medicine 12/29/17 Chinmay Shannon DPM [address] [place] [address] Referring Physician Foot and Ankle Surg 08/26/22 Zach Ojeda PA [address] [facility] [place] [address] Orthopedic Surgery 12/06/22 Yahaira Westfall MD [address] [facility] [place] [address] Consulting Physician Internal Medicine 05/20/23 documented as of this encounter
--- OUTSIDE RECORDS SUMMARY | 2025-06-26 17:47 | XMS_ITS | Clinical Summary ---
Author Organization [facility] Address [address] [place] [address] Phone Care Team Providers Care Executive Pilot Name Role Phone Leonila Chapa MD Primary Care Provider [phone] Social History Tobacco Use Types Packs/Day Years Used Date Smoking Tobacco: Never Assessed Sex and Gender Information Value Date Recorded Sex Assigned at Not on file Legal Sex Male 3:05 AM FLAKE DRIER Gender Identity Not on file Sexual Orientation Not on file Plan of Treatment Health Maintenance Due Date Last Done Comments Hepatitis C Virus (HCV) Screening 1945 Pneumococcal Immunization (50+ years) (1 of 1 - PCV) 12/09/1995 Zoster Immunization (1 of 2) 12/09/1995 Respiratory Syncytial Virus (RSV) Immunization (Adult) (1 - 1-dose 75+ series) 2020 Influenza Immunization (#1) 06/06/202510/06, 09/05/2022, 09/16/2020, Additional history exists SARS-COV-2 Immunization ( season) 2025 09/05/2022, 08/22/2021, 12/18/2020, Additional history exists DTaP/Tdap/Td Immunization Discontinued 10/14/2023 [...] age to complete this topic Insurance MEDICARE [facility] Care Teams Executive Pilot Relationship Specialty Start Date End Date Leonila Chapa MD [address] [facility] [address] [place] [address] PCP - General Family Medicine 10/15/23
--- OUTSIDE RECORDS SUMMARY | 2025-06-26 17:47 | XMS_ITS | Encounter Summary ---
Author Organization [facility] Address [address] [place] [address] Care Team Providers Care Dual Hose Cementer Name Role Phone Leonila Chapa MD Primary Care Provider Chinmay Shannon DPM Unavailable [phone] Zach Ojeda Unavailable [phone] Yahaira Westfall MD Unavailable [phone] Encounter Details Date Type Department Care Team (Late st Contact Info) Description 04/13/2025 Orders Only [facility] Information Management [address] [place] [address] Scanning, Provider Social History Tobacco Use [...] on file Legal Sex Male 7:32 PM SOLID STATE TESTER Gender Identity Not on file Sexual Orientation [...] on filedocumented in this encounter Care Teams Dual Hose Cementer Relationship Specialty Start Date End Date Leonila Chapa MD [address] [id number] PCP - General Family Medicine 12/29/17 Chinmay Shannon DPM [address] [place] [address] Referring Physician Foot and Ankle Surg 08/26/22 Zach Ojeda PA [address] [facility] [address] [place] [address] Orthopedic Surgery 12/06/22 Yahaira Westfall MD [address] [facility] [place] [address] Consulting Physician Internal Medicine 05/20/23 documented as of this encounter
--- OUTSIDE RECORDS SUMMARY | 2025-06-26 17:47 | XMS_ITS ---
Author Organization [facility] [address] Address [address] [place] [address] Care Team Providers Care Motion Picture Scene Builder Name Role Phone Leonila Chapa MD Primary Care Provider Chinmay Shannon DPM Unavailable [phone] Zach Ojeda Unavailable Yahaira Westfall MD Unavailable [phone] Active Problems Problem Noted Date Diagnosed Date Pancytopenia 10/15/2023 Assessment & Plan (10/15/2023 4:30 PM SAND BLASTER): Newly noted, unclear etiology. Patient reports symptoms [...] 10/14/2023 Assessment & Plan (10/15/2023 4:23 PM SAND BLASTER): Mechanical as per history. Less likely orthostatic (though has history of 2-3 poor intake and AALIYAH), much less likely neurogenic or cardiogenic. HCT, c-spine CT, XR pelvis & L humerus without fracture and without intracranial bleed -Monitor L orbit hematoma, patient denies visual changes or headache. -PT/OT recommending home with HH ALAIYAH (acute kidney injury) 10/14/2023 Assessment & Plan (10/15/2023 4:23 PM SAND BLASTER): Likely pre-renal in the setting of 2-3 days of N/V, and then poor intake after fall -Monitor off spironolactone and Lasix, instructed to resume 10/17 with slowly improving AALIYAH Nausea 10/14/2023 Assessment & Plan (10/15/2023 4:24 PM SAND BLASTER): Nausea/vomiting x2-3 days. Non bloody non bilious. Unclear etiology but more likely viral gastroenteritis. Resolved and patient tolerating diet. Leg swelling 10/14/2023 Assessment & Plan (10/15/2023 4:26 PM SAND BLASTER): Bilateral, L>R, chronic. Intermittent gets worse. He [...] 10/14/2023 Assessment & Plan (10/14/2023 11:06 AM SAND BLASTER): Outpatient f/u A-fib 10/14/2023 Assessment & Plan (10/14/2023 11:08 AM SAND BLASTER): Chronic, continuing the home Eliquis. Based on PT and risk of repeat falls, may need risks/benefits couselling Follow-up examination 10/14/2023 Assessment & Plan (10/15/2023 4:28 PM SAND BLASTER): CT 10/14/23 incidentally noted a Serpiginous tubular [...] 10/14/2023 Assessment & Plan (10/15/2023 4:28 PM SAND BLASTER): CABG in 2018. BNP around prior baseline, [...] (08/14/2022): Added automatically from request for surgery [id number] Pre-op evaluation 06/26/2022 Demand ischemia of myocardium [...] 12/29/2017 Assessment & Plan (10/15/2023 4:22 PM SAND BLASTER): Uses long acting 25u BID + SSI [...]
[2025-06-26 17:48] LABS: Partial Thromboplastin Time 45.1 Seconds (22.3-36.8)
--- OUTSIDE RECORDS SUMMARY | 2025-06-26 17:48 | XMS_ITS | Encounter Summary ---
Author Organization [facility] Healthcare Address [address] [place] [address] Care Team Providers Care Manager Ems Name Role Phone Leonila Chapa MD Primary Care Provider Chinmay Shannon DPM Unavailable [phone] Zach Ojeda Unavailable [phone] Yahaira Westfall MD Unavailable [phone] Encounter Details Date Type Department Care Team (Late st Contact Info) Description 06/28/2021 Telephone [facility] - Interventional Radiology [address] [place] [address] Cristina Guzman RN Social History Tobacco Use Types Packs/Day Years Used Date Smoking Tobacco: Never Smokeless Tobacco: Never Alcohol Use Standard Drinks/Week Comments Yes 2 (1 standard drink = 0.6 oz pur e alcohol) seldom Sex and Gender Information Value Date Recorded Sex Assigned at Not on file Legal Sex Male 7:32 PM GRINDER DRESSER Gender Identity Not on file Sexual Orientation Not on file documented as of this encounter Plan of Treatment Not on file documented as of this encounter Results * COVID-19 Coronavirus RNA Nasopharyngeal (06/29/2021 2:00 PM CDT) COVID-19 RNA Not Detected [facility] Comment: Interpretive Data Synonyms for this test include: PCR and NAAT. Testing performed by the [facility] Molecular Infectious Disease Laboratory. The 2019-Novel Coronavirus [...] on November 09, 2020. Testing performed by: [facility], [address] [place] [address], [id number] First COVID-19 test? Unknown [facility] Comment:Testing performed by : [facility], [address] [place] [address], [address] Employeed in healthcare? No [facility] Comment:Testing performed by : [facility], [address] [place] [address], [address] status? No [facility] Comment:Testing performed by : [facility], [address] [place] [address], [address] Group care resident? No [facility] Comment:Testing performed by : [facility], [address] [place] [address], [address] Hospitalized? No [facility] Comment:Testing performed by : [facility], [address] [place] [address], [address] Is patient in ICU? No [facility] Comment:Testing performed by : [facility], [address] [place] [address], [address] Symptomatic as defined by CDC? No [facility] Comment:Testing performed by : [address], [address] Nasopharyngeal 06/29/2021 2: 00 PM CDT 06/29/2021 4:51 PM CDT Brianna [facility] - 06/29/2021 9:35 PM CDT What is the reason for testing?->Screening prior to scheduled procedure or surgery (batch) Nestor Whittington MD LAB MICROBIOLOGY - GENERA L ORDERABLES Final Result Performing Organization Address [facility]/ZIP Co de Phone Number [facility] [address] Department [place] [address] * Protime-INR (06/29/2021 12:12 PM CDT) Pathologist [facility] PT 12.4 9.5 - 13.6 sec [facility] INR 1.1 0.9 - 1.2 [facility] Comment: Interpretive data Oral anticoagulant therapeutic [...] ORDERABLES Martha l Result Performing Organization Address [facility] Co de Phone Number [facility] [address] Department [place] [address] * (ABNORMAL) CBC with auto differential (06/29/2021 12:12 PM CDT) Pathologist [facility] WBC 3.8 3.8 - 9.9 K/cumm [facility] Hgb 10.8(L) 13.0 - 17.5 g/dL [facility] Hct 34.0(L) 38.9 - 50.3 % [facility] Plt 154 150 - 400 K/cumm [facility] MPV 9.2 9.1 - 12.3 fL [facility] RBC 3.47(L) 4.30 - 5.80 M/cumm [facility] MCV 98.0(H) 81.3 - 96.4 fL [facility] MCH 31.1 27.1 - 33.3 pg [facility] MCHC 31.8(L) 32.3 - 35.7 g/dL [facility] RDW CV 14.2 11.1 - 14.9 % [facility] RDW SD 50.5(H) 35.7 - 48.1 fL [facility] NRBC abs 0.00 0.00 - 0.01 K/cumm [facility] Blood 06/29/2021 12:1 2 PM CDT 06/29/2021 12:12 PM CDT us Nestor Whittington MD LAB BLOOD ORDERABLES Martha l Result [facility] [address] Department [place] [address] * (ABNORMAL) Basic metabolic panel (06/29/2021 12:12 PM CDT) Sodium 142 135 - 145 mmol/L [facility] Potassium, pl 4.2 3.3 - 4.9 mmol/L [facility] Chloride 102 97 - 110 mmol/L [facility] CO2 35(H) 22 - 32 mmol/L [facility] Anion gap 5 2 - 15 mmol/L [facility] BUN 18 8 - 25 mg/dL [facility] Creatinine 1.13 0.80 - 1.30 mg/dL [facility] Glucose 145 70 - 199 mg/dL [facility] Comment: Interpretive Data Fasting glucose >/= [...] 2017. Calcium 9.1 8.5 - 10.3 mg/dL [facility] Blood 06/29/2021 12:1 2 PM CDT 06/29/2021 12:12 PM CDT Nestor Whittington MD LAB BLOOD ORDERABLES Martha l Result [facility] [address] Department [place] [address] documented in this encounter Visit Diagnoses Diagnosis Right renal mass- Primary Unspecified disorder of kidney and ureter Right renal mass Unspecified disorder of kidney and ureter documented in this encounter Additional Health Concerns Infection Onset Date Last Indicated Resolved Time COVID: Suspected 03/16/2022 03/16/2022 03/16/2022 5:28 PM CDT COVID: Suspected 10/14/2023 10/14/2023 10/14/2023 3:53 AM GRINDER DRESSER documented as of this encounter Care Teams Manager Ems Relationship Specialty Start Date End Date Leonila Chapa MD [address] [address] PCP - General Family Medicine 12/29/17 Chinmay Shannon DPM [address] [place] [address] Referring Physician Foot and Ankle Surg 08/26/22 Zach Ojeda PA [address] [facility] [place] [address] Orthopedic Surgery 12/06/22 Yahaira Westfall MD [address] [facility] [place] [address] Consulting Physician Internal Medicine 05/20/23 documented as of this encounter
--- OUTSIDE RECORDS SUMMARY | 2025-06-26 17:48 | XMS_ITS | Encounter Summary ---
Author Organization [facility] Healthcare Address [address] [place] [address] Care Team Providers Care Video Game Creator Name Role Phone Leonila Chapa MD Primary Care Provider Chinmay ShannonM Unavailable [phone] Zach Ojeda Unavailable [phone] Yahaira Westfall MD Unavailable [phone] Encounter Details Date Type Department Care Team (Late st Contact Info) Description 05/29/2021 Telephone [facility] - Interventional Radiology [address] [place] [address] Cristina Guzman RN Social History Tobacco Use Types Packs/Day Years Used Date Smoking Tobacco: Never Smokeless Tobacco: Never Alcohol Use Standard Drinks/Week Comments Yes 2 (1 standard drink = 0.6 oz pur e alcohol) seldom Sex and Gender Information Value Date Recorded Sex Assigned at Not on file Legal Sex Male 7:32 PM 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 Gender Identity Not on file Sexual Orientation Not on file documented as of this encounter Plan of Treatment Not on file documented as of this encounter Visit Diagnoses Not on filedocumented in this encounter Additional Health Concerns Infection Onset Date Last Indicated Resolved Time COVID: Suspected 03/16/2022 03/16/2022 03/16/2022 5:28 PM CDT COVID: Suspected 10/14/2023 10/14/2023 10/14/2023 3:53 AM 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 documented as of this encounter Care Teams Video Game Creator Relationship Specialty Start Date End Date Leonila Chapa MD [address] [facility] [address] [place] [address] PCP - General Family Medicine 12/29/17 Chinmay Shannon, SILVA [address] [place] [address] Referring Physician Foot and Ankle Surg 08/26/22 Zach Ojeda PA [address] [facility] [address] [facility] [place] [address] Orthopedic Surgery 12/06/22 Yahaira Westfall MD [address] [facility] [place] [address] Consulting Physician Internal Medicine 05/20/23 documented as of this encounter
--- OUTSIDE RECORDS SUMMARY | 2025-06-26 17:48 | XMS_ITS | Encounter Summary ---
Author Organization [facility] Healthcare Address [address] [place] [address] Care Team Providers Care Sueding And Buffing Machine Operator Name Role Phone Leonila Chapa MD Primary Care Provider Chinmay ShannonM Unavailable [phone] Zach Ojeda Unavailable [phone] Yahaira Westfall MD Unavailable [phone] Encounter Details Date Type Department Care Team (Late st Contact Info) Description 06/29/2021 Telephone [facility] - Interventional Radiology [address] [place] [address] Cristina Guzman RN Social History Tobacco Use Types Packs/Day Years Used Date Smoking Tobacco: Never Smokeless Tobacco: Never Alcohol Use Standard Drinks/Week Comments Yes 2 (1 standard drink = 0.6 oz pur e alcohol) seldom Sex and Gender Information Value Date Recorded Sex Assigned at Not on file 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 Gender Identity Not on file Sexual Orientation Not on file documented as of this encounter Plan of Treatment Not on file documented as of this encounter Visit Diagnoses Not on filedocumented in this encounter Additional Health Concerns Infection Onset Date Last Indicated Resolved Time COVID: Suspected 03/16/2022 03/16/2022 03/16/2022 5:28 PM CDT COVID: Suspected 10/14/2023 10/14/2023 10/14/2023 3:53 AM NAIL WELTER documented as of this encounter Care Teams Sueding And Buffing Machine Operator Relationship Specialty Start Date End Date Leonila Chapa MD [address] [facility] [address] [place] [address] PCP - General Family Medicine 12/29/17 Chinmay Shannon, SILVA [address] [place] [address] Referring Physician Foot and Ankle Surg 08/26/22 Zach Ojeda PA [address] [facility] [address] [facility] [place] [address] Orthopedic Surgery 12/06/22 Yahaira Westfall MD [address] [facility] [place] [address] Consulting Physician Internal Medicine 05/20/23 documented as of this encounter
[2025-06-26 17:50] LABS: Alanine Aminotransferase 22 U/L (6-50); Albumin Level 3.4 g/dL (3.5-5.1); Alkaline Phosphatase 211 U/L (38-126); Anion Gap 9 mmol/L (4-12); Aspartate Amino Transferase 47 U/L (17-59); Bilirubin,Total 1.5 mg/dL (0.2-1.3); Blood Urea Nitrogen 99 mg/dL (9-20); Calcium 8.8 mg/dL (8.4-10.2); Carbon Dioxide 25 mmol/L (22-30); Chloride 93 mmol/L (98-107); Estimated Glomerular Filt Rate 21; Glucose 96 mg/dL (65-110); Potassium 5.1 mmol/L (3.4-5.0); Sodium 127 mmol/L (137-145); Total Protein 6.8 g/dL (6.3-8.2)
[2025-06-26 18:29] LABS: CRP 2.3 mg/dL (<1.0)
[2025-06-26 18:33] LABS: NT Pro B Type Natriuretic Pept 2980 pg/mL (19.9-100); Troponin I 0.031 ng/mL (0.000-0.034)
[2025-06-26] MEDS: SODIUM CHLORIDE 0.9% IV 1,000 ML 100 ML IV CONT (18:35)
[2025-06-26] MEDS: ACETAMINOPHEN 500 MG TABLET 1000 MG PO (19:01)
--- NOTE | 2025-06-26 19:07 | ECG_ITS ---
Test Date: 2025-06-26 19:17:46 Measurements Intervals [place] Rate: 52 P: 0 CT: 0 QRS: -49 QRSD: 142 T: 104 QT: 518 QTc: 485 Interpretive Statements ATRIAL FIBRILLATION WITH SLOW VENTRICULAR RESPONSE LEFT AXIS DEVIATION [QRS AXIS < -30] INTRAVENTRICULAR CONDUCTION DELAY [130+ ms QRS DURATION] Compared to ECG 06/26/2025 17:04:42 NO SIGNIFICANT CHANGES Electronically Signed On 06-27-2025 14:19:04 CDT by Chinedu Seaman M.D.
[2025-06-26 19:09] LABS: Add Urine Microscopic? YES; Appearance Urine Clear (Clear); Glucose Urine UA Negative (Negative); Leukocyte Esterase Ur Negative LEU/UL (Negative); Need Manual Microscopic Reviewed; Nitrate Urine Negative (Negative); Specific Grav Ur 1.014 (1.001-1.035)
--- NOTE | 2025-06-26 21:23 | PM.IMHP ---
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 The patient presents with shortness of breath from home. He was recently discharged from [facility] for the above-stated left inferior pubic ramus fracture and acetabulum fracture on the left, no surgical intervention, conservative therapy and he was then discharged from [facility] [place] on 06/20/2025. He reports his shortness of breath started spontaneously around noon on 06/26/2025 the day of admission. Was lying around not really doing anything. He denies cough, chest pain, fever, sick contacts, recent travel, abdominal pain, diarrhea. He cannot tell me if he has gained weight he does not track it, he cannot tell me if he has more swelling in his legs because he does not look at them. He is obese. He reports he takes his medications regularly. He is worried about his potassium because he had a very low potassium prior, he is worried about his strength and wants to go back to rehab. He also reports the past few days he has been urinating very little. In the ER he was started on fluids but then these were quickly discontinued when the ER physician noticed he had pulmonary edema. He was given Tylenol 1000 mg p.o. x1. He is in atrial fibrillation with a slow response, saturating 97% on room air. He rest comfortably reports he still feels like blah because his breathing is not right. His laboratory evaluation reveals chronic pancytopenia however stable, INR 2.6, ABG with a pH 7.444, pCO2 36, PO2 88, bicarb 24.2 on room air. His sodium is 127 which is around his usual, potassium 5.1 just slightly elevated, BUN 99 and serum creatinine 2.96 with which is much higher than his baseline. BNP 2900. This is around his baseline. Urinalysis is normal, no cast, no blood, no wbc's. A chest x-ray reports mild CHF. I did review this myself and agree. Review of Systems Review of Systems: All systems reviewed & are unremarkable except as noted in HPI and below (Subject) [facility] Past Medical History Medical History Hypotension Atrial fibrillation Cirrhosis Pulmonary hypertension Tricuspid regurgitation severe Hyponatremia Acute exacerbation of CHF (congestive heart failure) History of renal cell carcinoma History of prostate cancer Skin tear of right lower leg without complication Pre-ulcerative corn or callous Kidney mass Pancreatic mass Nausea & vomiting Anemia Acquired deformity of left thigh Preoperative clearance Foot lesion Cellulitis Elsa tropicalis infection Fall Bronchitis Elevated carbon dioxide level Alkaline phosphatase elevation Prostate cancer screening Body mass index (BMI) of 40.1 to 44.9 in adult Degenerative joint disease of knee Renal malignant neoplasm Prostate CA Intracranial atherosclerosis Eczema Hypertensive urgency Non-STEMI (non-ST elevated myocardial infarction) Most recent non-STEMI 12/11/2018 Obstructive sleep apnea Intolerant to CPAP Prostate cancer Renal cell carcinoma Elevated PSA, between 10 and less than 20 ng/ml Vertigo Morbid (severe) obesity due to excess calories Abnormality of gait CAD (coronary artery disease) Multivessel coronary artery disease with stents to the proximal and distal LAD, mid right coronary artery July 2014 with prior catheterization performed [facility] January 2018 had severe diffuse 3 vessel coronary artery disease with multiple stenoses of about 70% and mid to distal LAD between previously placed proximal and distal stents, 50-70% diffuse stenosis of the circumflex with a proximal stenosis of: To and total occlusion of a the marginal branch and diffuse distal right coronary artery disease with occluded RPDA referred for CABG DM neuropathy with neurologic complication GERD (gastroesophageal reflux disease) Dyslipidemia Hypertension Surgical History Surgical History History of right hip hemiarthroplasty Status post open reduction with internal fixation of fracture Of left leg at age 21 Stented coronary artery Hx of tonsillectomy S/P CABG (coronary artery bypass graft) (04/2018) YESENIA to LAD, vein graft to OM, radial graft to RPDA, RCA was diffusely diseased and not a great target for bypass, LAD was also diffusely diseased Family History Family History Father Family history of heart disease in male family member before age 55 Acute myocardial infarction Hypertension Mother Family history of heart disease in male family member before age 55 Acute myocardial infarction Emphysema of lung Asthma Sibling Family history of heart disease in male family member before age 55 Acute myocardial infarction Hypertension Polycystic kidney disease Sibling Family history of heart disease in male family member before age 55 Acute myocardial infarction Breast cancer Sibling Emphysema of lung Cerebrovascular accident Son Acute myocardial infarction Social History Social History Social History: He is and lives alone. He has an adult son and a daughter. 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 He is a lifelong nonsmoker and does not drink alcohol. Code status: Full code (he would not want to be on long-term life support or have a tracheostomy or PEG tube.) Surrogate decision maker: Adjacent (son) Smoking status: Never smoker Second hand tobacco smoke exposure: No Alcohol intake: never Substance use: never Substance use type: does not use Do You Feel Safe in your Home?: Yes Lack of Transportation: No Lack of Food: Never True Current Housing: I Have Housing Concerned About Future Housing: No Difficulty Paying Gas/Electric Bills: No Difficulty Paying for Meds: No Currently Unemployed: No Education: High School Diploma/GED Difficulty w/ Childcare or Family Care: No Living arrangements: alone Occupation/Education: retired Gender identity (if verbalized by the patient): Male Sexual Orientation (if Verbalized by the Patient): Straight or Heterosexual Spiritual care concerns: No Meds Home Medications and Allergies Home Medications ?Medication ?Instructions ?Recorded ?Confirmed ?Type evolocumab 140 mg/mL subcutaneous 140 mg subcut [id number] 05/07/21 06/06/25 History pen injector (Aman Ryder) acetaminophen 325 mg tablet (Pain 650 mg (2 x 325 mg) PO Q6H PRN 11/14/23 06/06/25 Rx Reliever (acetaminophen)) Pain (Scale Score 1-3) #300 tabs polysaccharide iron complex 150 mg 150 mg PO DAILY #90 caps 11/22/24 06/06/25 Rx iron capsule (Poly-Iron) nitroglycerin 0.4 mg sublingual See Rx Instructions .Route 04/07/25 06/06/25 Rx tablet .COMPLEX #100 tabs melatonin 3 mg tablet 3 mg PO HS #0 tabs 05/06/25 06/06/25 Rx pantoprazole 40 mg tablet,delayed 40 mg PO QAM #30 tabs 05/06/25 06/06/25 Rx release ranolazine 500 mg tablet,extended 500 mg PO Q12H #60 tabs 05/06/25 06/06/25 Rx release,12 hr blood-glucose sensor (FreeStyle #1 ea 06/01/25 06/06/25 Rx [place] 3 Sensor device) polyethylene glycol 3350 17 gram 17 g PO QAM PRN constipation 06/01/25 06/06/25 History oral powder packet (Miralax) insulin glargine 100 unit/mL 25 unit (0.25 mL) subcut Q12HR #10 06/06/25 06/06/25 Rx subcutaneous solution (Lantus mL U-100 Insulin) lactulose 10 gram/15 mL oral 20 g (30 mL) PO QAM #300 mL 06/06/25 06/06/25 Rx solution apixaban 5 mg tablet (Eliquis) 5 mg PO Q12HR #60 tabs 06/19/25 Rx cefdinir 300 mg capsule 300 mg PO BID 2 days #4 caps 06/19/25 Rx furosemide 20 mg tablet 60 mg (3 x 20 mg) PO BIDWM 15 days 06/19/25 Rx #90 tabs tamsulosin 0.4 mg capsule 0.4 mg PO QPM #30 caps 06/19/25 Rx sodium chloride 1,000 mg soluble 1,000 mg PO BID #60 tabs 06/23/25 Rx tablet Allergies Allergy/AdvReac Type Severity Reaction Status Date / Time Penicillins Allergy Severe Anaphylaxis Verified 06/06/25 15:43 adhesive tape Allergy Mild rash Verified 06/06/25 15:43 liraglutide Allergy Unknown Hives / Verified 06/06/25 15:43 Red Face [id number]-GPL-[id number] Reductase AdvReac Unknown Muscle Verified 06/06/25 15:43 Inhibitor (Khkjnql-Ukw-Vzh Spasms Reductase Inhibitor) Vital Signs Vital Signs - 24 hr 06/26/25 16:56 06/26/25 17:02 06/26/25 17:13 Temperature 98.0 F Pulse Rate 57 L 59 L Respiratory Rate 15 20 Blood Pressure 115/54 L Pulse Oximetry 100 100 Oxygen Delivery Room Air Room Air 06/26/25 17:15 06/26/25 17:17 06/26/25 17:30 Temperature Pulse Rate 59 L 57 L 54 L Respiratory Rate 16 15 14 Blood Pressure 113/54 L Pulse Oximetry 100 100 100 Oxygen Delivery 06/26/25 17:31 06/26/25 17:46 06/26/25 18:38 Temperature Pulse Rate 53 L 52 L 55 L Respiratory Rate 18 14 20 Blood Pressure 106/47 L Pulse Oximetry 100 98 Oxygen Delivery 06/26/25 19:09 06/26/25 19:15 06/26/25 19:53 Temperature Pulse Rate 54 L 55 L 52 L Respiratory Rate 22 H 23 H 16 Blood Pressure Pulse Oximetry 97 93 96 Oxygen Delivery 06/26/25 20:00 06/26/25 20:01 06/26/25 20:15 Temperature Pulse Rate 48 L 51 L 49 L Respiratory Rate 15 18 16 Blood Pressure 139/57 L Pulse Oximetry 99 100 88 L Oxygen Delivery 06/26/25 20:17 06/26/25 20:30 06/26/25 20:32 Temperature Pulse Rate 49 L 54 L 50 L Respiratory Rate 14 17 23 H Blood Pressure 131/60 Pulse Oximetry 95 100 Oxygen Delivery Exam Const: General: comfortable and no acute distress Other: A&O x3, obese HENMT: Mouth: Yes moist mucous membranes Eyes: Pupils: Equal, round and reactive pupils present Neck: Neck: supple Resp: Effort & Inspection: normal respiratory effort Other: Significant crackles, no wheezing. Cardio: Rate: bradycardic Rhythm: abnormal rhythm GI: Inspection: non-distended GI Palp: Yes Soft to palpation and No Tenderness to palpation present (GI) Neuro: Motor exam (neuro): 5/5 motor strength present throughout Extrem: General: edema H&P: Results Labs Labs: Short CBC 06/26/25 Range/Units 17:11 WBC 2.8 L (4.5-10.0) K/mm3 Hgb 8.3 L (14.0-18.0) g/dL Hct 25.1 L (42.0-52.0) % Plt Count 128 L (150-375) k/mm3 BMP 06/26/25 17:11 Sodium 127 L Potassium 5.1 H Chloride 93 L Carbon Dioxide 25 BUN 99 H D Creatinine 2.96 H Glucose 96 Calcium 8.8 Cardiac Enzymes 06/26/25 Range/Units 17:11 Troponin I 0.031 (0.000-0.034) ng/mL Liver Function 06/26/25 Range/Units 17:11 Total Bilirubin 1.5 H (0.2-1.3) mg/dL AST 47 (17-59) U/L ALT 22 (6-50) U/L Alkaline Phosphatase 211 H (38-126) U/L Albumin 3.4 L (3.5-5.1) g/dL Urine 06/26/25 Range/Units 18:50 Urine Color Yellow (Yellow) Urine Appearance Clear (Clear) Urine pH 5.5 (5.0-9.0) Ur Specific [place] 1.014 (1.001-1.035) Urine Protein Trace (Negative) mg/dL Urine Glucose (UA) Negative (Negative) mg/dL Assessment and Plan Assessment and plan (1) Risk for falls: Code(s): Z91.81 - History of falling Status: Acute (2) Hypertension: Qualifiers: Hypertension type: essential hypertension Qualified Code(s): I10 - Essential (primary) hypertension Code(s): I10 - Essential (primary) hypertension Status: Chronic (3) Acute exacerbation of CHF (congestive heart failure): Qualifiers: Heart failure type: diastolic Qualified Code(s): I50.33 - Acute on chronic diastolic (congestive) heart failure Code(s): I50.9 - Heart failure, unspecified Status: Acute (4) CAD (coronary artery disease): Qualifiers: Coronary Disease-Associated Artery/Lesion type: [place] artery [place] vs. transplanted heart: [place] heart Associated angina: with stable angina Qualified Code(s): I25.118 - Atherosclerotic heart disease of [place] coronary artery with other forms of angina pectoris Code(s): I25.10 - Atherosclerotic heart disease of [place] coronary artery without angina pectoris Status: Acute (5) Atrial fibrillation: Qualifiers: Atrial fibrillation type: persistent (not longstanding) Qualified Code(s): I48.19 - Other persistent atrial fibrillation Code(s): I48.91 - Unspecified atrial fibrillation Status: Chronic (6) Insulin long-term use: Code(s): Z79.4 - terminal computer operator (current) use of insulin Status: Acute (7) Diabetes mellitus with neuropathy: Qualifiers: Diabetes mellitus type: type 2 Diabetes mellitus long term care pharmacist insulin use: with [facility]p use Qualified Code(s): E11.40 - Type 2 diabetes mellitus with diabetic neuropathy, unspecified; Z79.4 - retirement (current) use of insulin Code(s): E11.40 - Type 2 diabetes mellitus with diabetic neuropathy, unspecified Status: Chronic (8) Morbid (severe) obesity due to excess calories: Code(s): E66.01 - Morbid (severe) obesity due to excess calories Status: Acute (9) AALIYAH (acute kidney injury): Code(s): N17.9 - Acute kidney failure, unspecified Status: Acute (10) CKD (chronic kidney disease): Qualifiers: Chronic kidney disease stage: stage 3 (moderate) Chronic kidney disease stage 3 subtype: unspecified whether 3a or 3b Qualified Code(s): N18.30 - Chronic kidney disease, stage 3 unspecified Code(s): N18.9 - Chronic kidney disease, unspecified Status: Chronic Plan This is a pleasant 79-year-old male with a H CHF with grade 2 diastolic dysfunction, pulmonary hypertension, CAD status post CABG in 2018, paroxysmal atrial fibrillation, first-degree AV block, obesity, left bundle branch block, hyper and hypokalemia, chronic hyponatremia, history of renal cell carcinoma, history of prostate cancer, chronic pancytopenia, chronic debility, CKD stage 3, fracture of left inferior pubic ramus and left acetabulum fracture in 06/2025, 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 The patient presents with shortness of breath from home. He was recently discharged from [facility] for the above-stated left inferior pubic ramus fracture and acetabulum fracture on the left, no surgical intervention, conservative therapy and he was then discharged from [facility] [place] on 06/20/2025. He reports his shortness of breath started spontaneously around noon on 06/26/2025 the day of admission. Was lying around not really doing anything. He denies cough, chest pain, fever, sick contacts, recent travel, abdominal pain, diarrhea. He cannot tell me if he has gained weight he does not track it, he cannot tell me if he has more swelling in his legs because he does not look at them. He is obese. He reports he takes his medications regularly. He is worried about his potassium because he had a very low potassium prior, he is worried about his strength and wants to go back to rehab. He also reports the past few days he has been urinating very little. In the ER he was started on fluids but then these were quickly discontinued when the ER physician noticed he had pulmonary edema. He was given Tylenol 1000 mg p.o. x1. He is in atrial fibrillation with a slow response, saturating 97% on room air. He rest comfortably reports he still feels like blah because his breathing is not right. His laboratory evaluation reveals chronic pancytopenia however stable, INR 2.6, ABG with a pH 7.444, pCO2 36, PO2 88, bicarb 24.2 on room air. His sodium is 127 which is around his usual, potassium 5.1 just slightly elevated, BUN 99 and serum creatinine 2.96 with which is much higher than his baseline. BNP 2900. This is around his baseline. Urinalysis is normal, no cast, no blood, no wbc's. A chest x-ray reports mild CHF. I did review this myself and agree. ----- The patient is only a fair historian. His presenting symptomatology appears to be due to fluid overload and acute decompensated heart failure. He is wearing his compression stockings up to the knees. There is 4+ pitting edema bilateral lower extremities as well as pitting edema on the dependent portions of his proximal lower extremities, he has slight pitting edema of the abdominal wall. Significant crackles on his lungs. Believe his acute kidney injury on CKD to be due to low effective circulating volume. Will give a Lasix 1 time dose 60 mg IV. Recheck BMP in about 4 hours. Strict I/O, daily weight. At this time he has atrial fibrillation with slow ventricular response. We will hold off on any beta-blockers. Resume as tolerated. Continue telemetry. Weakness: So PT/OT. He had a recent pubic ramus and acetabulum fracture and was just discharged from [facility] in-situ. Pancytopenia, continue to monitor. Resume [employer] anticoagulants for atrial fibrillation. Mild hyperkalemia: We will recheck a BMP after Lasix shortly. Accu-Cheks a.c. HS with low-dose insulin sliding scale. Hold his home insulin for now. ----- At this time medication reconciliation is ongoing. Home meds will be restarted as indicated and appropriate. ----- Patient wishes to be full code. He lives at home, uses a walker to ambulate. Heart healthy diabetic diet. Saline lock IV. Strict intake/output. Daily weights. Ambulate with assistance, fall precautions. Thigh-high compression stockings. Resume [employer] anticoagulant. PT/OT evaluations for weakness and discharge planning. ----- Greater than 75 minutes spent on evaluation, patient Education, coordination with care team, decision making. Hospitalist MIPS Advance Care Plan I have confirmed that the patient's Advanced Care Plan is present, code status is documented, or surrogate decision maker is listed in patient medical record.: Yes Medication Reconciliation I have utilized all available resources to obtain, update and review the patients current medications (includes all prescriptions, OTC, herbals, cannabis, and nutritional supplements).: Yes
--- NOTE | 2025-06-26 21:36 | ADMGEN ---
This patient, Lopez Guzman, was admitted to IMU Room 200-01 on 06/26/25 at 2108. Patient/family oriented to hospital policies and general routines including ID bracelet, bed and alarms, visiting hours, pain management, procedures, bathroom and other care routines, personal items, smoking policy, room service/diet, and visiting hours. Information on how to activate the Rapid Response Team has been discussed. Patient/Family are encouraged to report perceived risks to care and to ask questions if they do not understand what they are told or what they should do.
[2025-06-26] MEDS: FUROSEMIDE INJ 40 MG/4 ML VIAL 60 MG IV PUSH (23:06)
[2025-06-27] VITALS (36 sets, daily range): BP systolic 105–137; BP diastolic 44–96; PULSE 50–57; RESP 16–29; TEMP 34.9–36.8; O2SAT 94–100; BMI 41.3
--- NOTE | 2025-06-27 01:27 | WNDPHOTO ---
PHOTO ONLY - See Nursing Notes and/ or assessments for documentation.
--- NOTE | 2025-06-27 01:30 | WNDPHOTO ---
PHOTO ONLY - See Nursing Notes and/ or assessments for documentation.
--- NOTE | 2025-06-27 01:33 | WNDPHOTO ---
PHOTO ONLY - See Nursing Notes and/ or assessments for documentation.
[2025-06-27 01:35] LABS: Anion Gap 9 mmol/L (4-12); Blood Urea Nitrogen 95 mg/dL (9-20); Calcium 8.6 mg/dL (8.4-10.2); Carbon Dioxide 22 mmol/L (22-30); Chloride 95 mmol/L (98-107); Estimated CRCL calculation 29 ml/min; Estimated Glomerular Filt Rate 22; Glucose 98 mg/dL (65-110); Potassium 5.0 mmol/L (3.4-5.0); Sodium 126 mmol/L (137-145)
--- NOTE | 2025-06-27 01:35 | WNDPHOTO ---
PHOTO ONLY - See Nursing Notes and/ or assessments for documentation.
--- NOTE | 2025-06-27 01:40 | PEDADOS ---
[facility] ADOS2 AUTISM ASSESSMENT Reason for Referral Loepz Guzman was referred for the following assessment, as part of a full case study evaluation, in order to determine whether he has the characteristics of an Autism Spectrum Disorder. MD Latoya indicated that further assessment with the Autism Diagnostic Observation Schedule (ADOS) 2 was necessary. This report encompasses the results from that assessment. Behavioral Observations Acknowledged Therapist: Cooperation Level: Engagement: Followed Directions: Required Cueing: Affect: Eye Contact: Transitions: General Behavior Pattern: Behavioral Comments: Interpretation of Psycho-educational Assessment The Autism Diagnostic Observation Schedule (ADOS-2) was administered to Lopez this day. The ADOS-2 is a semi-structured observation instrument used to assess social and communicative behaviors in children. This instrument includes a series of semi-structured tasks of high interest to children with Autism. It is important to remember that the ADOS-2 provides a measure of current functioning (what was seen during the evaluation). It should be considered as a piece of a comprehensive evaluation process and should never be used in isolation to determine an individual?s clinical diagnosis or eligibility for services. Language and Communication Skills Used Complex Sentences: Used Single Words: Used Phrases: Varied Intonation: Varied Volume: Varied Rhythm/Rate: Directs Vocalizations Towards Others: Presence of Immediate Echolalia: Presence of Delayed Echolalia: Describes/Tells What Happened: Asks Others Questions About Their Thoughts, Feelings, Experiences: Tells Others About His/Her Thoughts, Feelings, Experiences: Presence of Stereotypical Phrases: Engages in Back/Forth Conversation: Uses Gestures to Aid in Communication: Uses Pointing Coordinated with Eye Gaze: Language and Communication Comments: Social Interaction Appropriate Eye Contact: Changes in Gaze, Expressions, Gestures While Vocalizing: Responsive Social Smile: Directs Facial Expressions to Others: Integration of Gaze with Words or Gestures: Shows Enjoyment During Activities: Understands Relationships & His/Her Role: Talks About Emotions: Responds to Name: Requests Desired Items: Gives Things to Others: Shows Things to Others: Spontaneous Initiation of Joint Attention: Response to Joint Attention: Initiates with Others: Responds Appropriately to Others: Engages in Social Exchanges (Chats/Comments): Initiates Interaction with Others: Spontaneously Engaged & Interested in Activities: Demonstrates Empathy: Demonstrates Responsibility for His/Her Actions: Interactions are Comfortable: Plays Functionally with Toys: Social Interaction Comments: Restricted/Stereotyped Behavior Unusual Interest in Toys/People/Topics: Hand & Finger Movements: Self Injurious Behaviors: Compulsive/Rituals: Repetitive Interest/Behaviors: Restricted/Stereotyped Behavior Comments: Abnormal Behavior Overactive: Agitated: Negative/Disruptive Behavior: Anxious: Abnormal Behavior Comments: Play Functional Play with Objects: Demonstrates Creativity/Imagination: Play Comments: On this assessment, scores are obtained for Social Affect (Communication and Reciprocal Social Interaction) and Restricted and Repetitive Behaviors. Comparison scores are determined and pertain to the level of Autism spectrum related symptoms evidenced on the ADOS-2 only. Scores from the ADOS-2 must be interpreted in the context of all of the available assessment information. _Lopez?s comparison score was an ____*manual fill which indicates (choose one and delete the other) a ____manual full_*___ level of autism spectrum-related symptoms as compared with other children who have ASD and are of the same age and language level. This score corresponds to ADOS-2 Classification of Autism. His scores were significant in the area of social affect (communication/relations with others). __Lopez?s comparison score was a _manual fill____ which indicates minimal evidence of autism spectrum-related symptoms as compared with other children who have ASD and are of the same age and language level. This score corresponds to ADOS2-2 classification of Non-Spectrum Disorder. Summary/Recommendations Administration this date of ADOS-2 indicated the following: Social Affect Raw Score = 2 Restricted and Repetitive Behavior Raw Score = 0 Overall Total Raw Score = 2 ADOS-2 Comparison Score = 1 Level of Autism Related Symptoms = 1 (Minimal to no Evidence) *The ADOS-2 scores provide a scale from 1-10 with 10 being the highest possible rating showing signs and symptoms consistent with Autism and 1 being minimal to no evidence of Autism. 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 Currently, Lopez is having difficulty using gestures and verbal language to communicate with others. He has poor eye contact and limited joint attention which are important pre-language skills that children need in order to engage with others. He is limited in his use of words to interact or respond with others, lacks initiation of social interactions with others and tends to echo language used. Socially, he has limited facial expressions and shared enjoyment and has limited interaction skills. He is beginning to show some functional play and imaginative play. His parents are providing a language rich environment and loving home to support him and give him language learning and interaction opportunities. The following recommendations are offered to help foster success in the following areas of Lopez?s educational program: (Keep or delete) Bombard your child with sounds and/or words they could use throughout the day to name things, describe actions or request desired items. (Keep or delete) Engage in turn-taking/back and forth play with child (example- roll a ball or car back and forth, play tickle) (Keep or delete) Hold child in your lap facing you so they can see your face. Make silly faces/noises and try to get eye contact. Hold toys near your face (or start away from your face and draw toward your face) so the child will look at your face. (Keep or delete) Work on joint attention/engagement skills. Hold an item (bubbles, balloon, toy) away from your face and see if your child will look at it, then at you, then back to toy to get you to do something with it. (Keep or delete) Social skills training (provided by a high school science teacher, speech therapist and/or social worker aide) may be effective in improving communication skills, peer interactions, and learning adaptive problem solving methods (how to get help, request items, communicate need to be done). Lopez may need both training and practice to learn the social skills that are necessary in maintaining relationships with others (sharing, turn-taking, using eye contact and joint attention to get needs met). (Keep or delete) Play therapy or a language-based classroom that will provide opportunities for Lopez to learn age-appropriate play skills and increase functional/imaginative play. Emphasis should be placed on verbal output paired with functional play, imaginative/dramatic play and increasing cooperative play. Cueing to use ?nice? or ?soft? hands/touch may be helpful in decreasing ?rough? play. (Keep or delete) Lopez may need motivators to increase his engagement in activities. Using an FIRST/THEN strategy may be helpful to get him to engage/complete tasks then get to do something of his choice (more desirable). A visual schedule (pictures of things he is going to do or steps for completing an activity) may help to keep him on task for longer periods of time. (Keep or delete) It may be helpful to initiate a picture communication system (PECS) or use of sign language/gestures to support/encourage interactions with others. _ needs to have a means for accurately indicating choices and making requests as well as making comments (including asking for help, answering questions) to others. Picture systems should also include/encourage verbal speech. (Keep or delete) Lopez may need predictability in his day (to reduce anxiety), perhaps in the form of a visual schedule. When he is finished with one activity, he needs to see which activity will follow. (This may also help with getting tasks completed if that is an issue). In addition, he may need preparation for changes that may occur. This may take the form of a visual schedule or a visual explanation as to why the change is taking place. (Keep or delete) Social stories may also be effective in scripting events, describing what is likely to occur, and how Lopez may respond. These will be especially helpful because they can include pictures as well as verbal descriptions of events and social interactions. These might be useful for stressful situations such as changing activities and/or going into general education for a new subject. (Keep or delete) Continuation and/or evaluation of speech/language therapy to address verbal expression and social language (answering questions, labeling, requesting, commenting and speech intelligibility). A speech/language evaluation may be helpful to determine specific areas of need. (Keep or delete) Referral for outpatient occupational therapy/sensory evaluation due to parent concerns regarding- sensory regulation (increased activity level, safety issues, anxiety, hand flapping, eating issues, fine motor skills (using utensils). (Keep or delete) An occupational therapy sensory evaluation to determine if sensory issues are present. An evaluation may determine whether or not a sensory diet would help. (For calming and organization. activities may include heavy/resistive work, deep pressure, tactile play, and/or movement.) (Keep or delete) Complete a formal hearing evaluation to rule out hearing loss if this has not yet been completed. (Keep or delete) Continue to provide opportunities for Lopez to engage with other children his age (in and outside of the school setting) and involvement in both structured and unstructured settings (school, buddhist, park, outings such as zoo). Involvement in small groups such as jacket preparer or larger groups of people such as sports teams. Choosing something of interest to him will provide a positive experience. Encourage him to talk about his experiences. (Keep or delete) His/Her parents are encouraged to continue to help develop language skills with book time/reading, labeling items to build vocabulary, giving (modeling) words needed to express himself, asking him questions and engaging him in play with others. (keep or delete) Limit the use and time spent on electronic devices (phones, tablets, computers, TV). Children who spend an excess amount of time on devices tend to shut the world out and hyper focus on what they are doing. Electronics limit the opportunities for language learning and use of verbal language but more importantly, limit interactions with others.
[2025-06-27 02:03] LABS: Influenza A QL RT-PCR Negative (Negative); Influenza B QL RT-PCR Negative (Negative); RSV RNA, RT-PCR Negative (Negative); SARS-CoV-2 RNA PCR Negative (Negative)
[2025-06-27] MEDS: SODIUM CHLORIDE 1 GM TABLET PO ×3 (02:35→17:02)
[2025-06-27] MEDS: APIXABAN 5 MG TABLET PO ×3 (02:35→21:16)
[2025-06-27] MEDS: MELATONIN 3 MG TABLET PO ×2 (02:35→21:16)
[2025-06-27] MEDS: RANOLAZINE 500 MG TAB.ER.12H PO ×2 (02:36→21:16)
[2025-06-27] MEDS: ACETAMINOPHEN 325 MG TABLET 650 MG PO ×4 (02:36→21:15)
[2025-06-27 05:40] LABS: Hematocrit 25.3 % (42.0-52.0); Hemoglobin 8.3 g/dL (14.0-18.0); Immature Granulocyte Percent A 0.3 % (0-0.5); Lymphocytes Absolute Auto 0.37 K/mm3 (0.9-3.2); Mean Corpuscular HGB Conc 32.8 g/dl (32-36); Mean Corpuscular Hemoglobin 32.8 pg (26-34); Mean Corpuscular Volume 100.0 fl (80-100); Nucleated Red Blood Cells Absolute Auto 0.000 K/mm3 (0.0-0.012); Nucleated Red Blood Cells Perc 0.0 % (0.0-0.2); Platelet Count Result 160 k/mm3 (150-375); Red Blood Count 2.53 M/mm3 (4.6-6.20); White Blood Count 3.5 K/mm3 (4.5-10.0)
[2025-06-27 06:01] LABS: Anion Gap 12 mmol/L (4-12); Blood Urea Nitrogen 95 mg/dL (9-20); Calcium 8.6 mg/dL (8.4-10.2); Carbon Dioxide 21 mmol/L (22-30); Chloride 95 mmol/L (98-107); Estimated CRCL calculation 29 ml/min; Estimated Glomerular Filt Rate 22; Glucose 109 mg/dL (65-110); Magnesium 2.4 mg/dL (1.6-2.3); Potassium 5.3 mmol/L (3.4-5.0); Sodium 128 mmol/L (137-145)
--- NOTE | 2025-06-27 08:57 | WNDPHOTO ---
PHOTO ONLY - See Nursing Notes and/ or assessments for documentation.
[2025-06-27] MEDS: FUROSEMIDE INJ 40 MG/4 ML VIAL 20 MG IV PUSH (09:58)
[2025-06-27] MEDS: SODIUM ZIRCONIUM CYCLOSILICATE 10 GM POWD.PACK PO (09:59)
[2025-06-27] MEDS: PANTOPRAZOLE 40 MG TABLET PO (10:00)
--- NOTE | 2025-06-27 14:01 | PM.IMPN ---
Progress Note: A&P Assessment and Plan (1) Hypertension: Qualifiers: Hypertension type: essential hypertension Qualified Code(s): I10 - Essential (primary) hypertension Code(s): I10 - Essential (primary) hypertension Status: Chronic (2) Acute exacerbation of CHF (congestive heart failure): Qualifiers: Heart failure type: diastolic Qualified Code(s): I50.33 - Acute on chronic diastolic (congestive) heart failure Code(s): I50.9 - Heart failure, unspecified Status: Acute (3) Atrial fibrillation: Qualifiers: Atrial fibrillation type: persistent (not longstanding) Qualified Code(s): I48.19 - Other persistent atrial fibrillation Code(s): I48.91 - Unspecified atrial fibrillation Status: Chronic (4) Hyponatremia: Code(s): E87.1 - Hypo-osmolality and hyponatremia Status: Acute (5) Morbid (severe) obesity due to excess calories: Code(s): E66.01 - Morbid (severe) obesity due to excess calories Status: Acute (6) OREN (acute kidney injury): Code(s): N17.9 - Acute kidney failure, unspecified Status: Acute (7) Stage 3 chronic kidney disease: Code(s): N18.30 - Chronic kidney disease, stage 3 unspecified Status: Chronic (8) Acute hyperkalemia: Code(s): E87.5 - Hyperkalemia Status: Acute Plan 79-year-old male with a H CHF with grade 2 diastolic dysfunction, pulmonary hypertension, CAD status post CABG in 2018, paroxysmal atrial fibrillation, first-degree AV block, obesity, left bundle branch block, hyper and hypokalemia, chronic hyponatremia, history of renal cell carcinoma, history of prostate cancer, chronic pancytopenia, chronic debility, CKD stage 3, fracture of left inferior pubic ramus and left acetabulum fracture in 06/2025, 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 1. Acute SOB: ? acute chf/volume overload Currently on room air Continue with IV Lasix Strict eyes and nose Daily weight Compression stocking 2. Oren I on pre-existing CKD stage 3: Renal ultrasound unremarkable [facility] for hyperkalemia Monitor kidney function with ongoing diuresis History of chronic hyponatremia, continue with salt tablets 3. History of atrial fibrillation with slow ventricular response: Continue with tele monitoring No beta-blockers Continue with Eliquis 4. History of diabetes mellitus: Blood glucose checked t.i.d. a.c. and HS Continue with sliding scale insulin 5. Code status: Full 6. DVT prophylaxis: Eliquis 7. P.T./OT 8. Disposition: Pending improvement, can be transferred out of IMU Time Spent With Patient Time: 38 minutes Subjective Date/time seen: 06/27/25 14:01 Interval history: SOB Review of Systems Review of Systems: All systems reviewed & are unremarkable except as noted in HPI and below Exam Narrative: General appearance: Well-developed Skin: 4+ edema bilaterally, compression stocking on Head: Normocephalic, nontraumatic Eyes: Clear conjunctiva ENT: Dry oral cavity and lips Neck: Supple, nontender Chest and respiratory: Airway patent, no respiratory distress,basilar rales bilaterally Heart: Bradycardia Abdomen: Soft, nontender, no organomegaly, quiet bowel sounds Vascular: Normal peripheral pulses, normal capillary refill. Musculoskeletal: Normal range of motion, nontender back Neurologic: Alert and oriented ?3, [employer] is normal as tested, no gross motor deficit Objective Data Vital Signs Vital Signs: Vital Signs - 24 hr 06/26/25 16:56 06/26/25 17:02 06/26/25 17:13 Temperature 98.0 F Pulse Rate 57 L 59 L Respiratory Rate 15 20 Blood Pressure 115/54 L Pulse Oximetry 100 100 Oxygen Delivery Room Air Room Air 06/26/25 17:15 06/26/25 17:17 06/26/25 17:30 Temperature Pulse Rate 59 L 57 L 54 L Respiratory Rate 16 15 14 Blood Pressure 113/54 L Pulse Oximetry 100 100 100 Oxygen Delivery 06/26/25 17:31 06/26/25 17:46 06/26/25 18:38 Temperature Pulse Rate 53 L 52 L 55 L Respiratory Rate 18 14 20 Blood Pressure 106/47 L Pulse Oximetry 100 98 Oxygen Delivery 06/26/25 19:09 06/26/25 19:15 06/26/25 19:53 Temperature Pulse Rate 54 L 55 L 52 L Respiratory Rate 22 H 23 H 16 Blood Pressure Pulse Oximetry 97 93 96 Oxygen Delivery 06/26/25 20:00 06/26/25 20:01 06/26/25 20:15 Temperature Pulse Rate 48 L 51 L 49 L Respiratory Rate 15 18 16 Blood Pressure 139/57 L Pulse Oximetry 99 100 88 L Oxygen Delivery 06/26/25 20:17 06/26/25 20:30 06/26/25 20:32 Temperature Pulse Rate 49 L 54 L 50 L Respiratory Rate 14 17 23 H Blood Pressure 131/60 Pulse Oximetry 95 100 Oxygen Delivery 06/26/25 21:16 06/26/25 21:17 06/26/25 22:00 Temperature Pulse Rate 52 L 55 L 50 L Respiratory Rate 19 Blood Pressure Pulse Oximetry 99 Oxygen Delivery Room Air 06/26/25 22:17 06/27/25 00:00 06/27/25 00:00 Temperature 95.6 F L 94.9 F L Pulse Rate 52 L 55 L 52 L Respiratory Rate 19 29 H Blood Pressure 113/68 117/51 L Pulse Oximetry 99 100 Oxygen Delivery 06/27/25 00:40 06/27/25 00:45 06/27/25 01:45 Temperature 94.9 F L 95.5 F L Pulse Rate 55 L 55 L Respiratory Rate 22 H Blood Pressure Pulse Oximetry 100 Oxygen Delivery Room Air 06/27/25 01:54 06/27/25 02:00 06/27/25 02:00 Temperature 95.8 F L 95.9 F L Pulse Rate 51 L 52 L Respiratory Rate 21 H Blood Pressure 113/52 L Pulse Oximetry 96 Oxygen Delivery 06/27/25 02:15 06/27/25 02:24 06/27/25 02:30 Temperature 96.2 F L 95.9 F L 95.9 F L Pulse Rate 56 L Respiratory Rate 19 Blood Pressure 110/50 L Pulse Oximetry 97 Oxygen Delivery 06/27/25 02:30 06/27/25 02:35 06/27/25 02:45 Temperature 96.3 F L 96.3 F L 96.6 F L Pulse Rate 55 L 55 L 57 L Respiratory Rate 20 19 Blood Pressure 114/96 H 109/44 L Pulse Oximetry 97 98 Oxygen Delivery 06/27/25 03:00 06/27/25 03:15 06/27/25 03:30 Temperature 96.2 F L 96.7 F L 96.9 F L Pulse Rate 56 L Respiratory Rate 20 Blood Pressure 118/60 Pulse Oximetry 97 Oxygen Delivery 06/27/25 03:45 06/27/25 03:45 06/27/25 03:52 Temperature 97.2 F L 97.3 F L Pulse Rate 51 L 51 L Respiratory Rate 19 19 Blood Pressure 113/57 L Pulse Oximetry 97 97 Oxygen Delivery Room Air 06/27/25 04:00 06/27/25 04:00 06/27/25 04:15 Temperature 97.7 F 97.7 F Pulse Rate 52 L 52 L Respiratory Rate 19 Blood Pressure 105/45 L Pulse Oximetry 97 Oxygen Delivery 06/27/25 06:00 06/27/25 08:00 06/27/25 08:00 Temperature 98.2 F Pulse Rate 52 L 54 L 55 L Respiratory Rate 24 H Blood Pressure 115/52 L Pulse Oximetry 94 Oxygen Delivery 06/27/25 08:47 06/27/25 09:03 06/27/25 10:00 Temperature Pulse Rate 50 L Respiratory Rate Blood Pressure Pulse Oximetry 97 Oxygen Delivery Room Air Room Air 06/27/25 10:10 06/27/25 12:00 Temperature Pulse Rate 51 L Respiratory Rate Blood Pressure Pulse Oximetry Oxygen Delivery Room Air Intake/Output Intake/Output: Intake & Output 06/24/25 06/25/25 06/26/25 06/27/25 23:59 23:59 23:59 23:59 Intake Total 1000 840 Output Total 0 1560 Balance 1000 -720 Meds/Results Medications: Active Medications Generic Name Dose Route Start Last Admin Trade Name Freq PRN Reason Stop Dose Admin Acetaminophen 650 mg 06/26/25 19:39 06/27/25 09:59 Acetaminophen 325 Mg Tablet PO 650 mg Q4H PRN Administration Mild Pain (1-3) or Fever Apixaban 5 mg 06/27/25 02:15 06/27/25 10:07 Apixaban 5 Mg Tablet PO 5 mg Q12HR YUNIOR Administration Dextrose 12.5 gm 06/26/25 21:20 Dextrose 50% 25 Gm/50 Ml Syringe IV PUSH PRN PRN Hypoglycemia Protocol Glucose 15 gm 06/26/25 21:20 Glucose Oral Gel 15 Gm Of Glucse In 37.5 Gm Tube PO PRN PRN Hypoglycemia Protocol Dextrose 1,000 mls @ 100 mls/hr 06/26/25 21:20 Dextrose 5% 1,000 Ml IVPB PRN PRN Hypoglycemia Protocol Insulin Aspart 2 - 5 units 06/27/25 08:00 06/27/25 12:45 Insulin Aspart (*Bkc) 100 Units/Ml SUB-Q Not Given TIDWM [facility] Protocol Insulin Aspart 1 - 2 units 06/27/25 21:00 Insulin Aspart (*Bkc) 100 Units/Ml SUB-Q HS [facility] Protocol Melatonin 3 mg 06/27/25 02:15 06/27/25 02:35 Melatonin 3 Mg Tablet PO 3 mg HS YUNIOR Administration Pantoprazole Sodium 40 mg 06/27/25 09:00 06/27/25 10:00 Pantoprazole 40 Mg Tablet PO 40 mg QAM YUNIOR Administration Polyethylene Glycol 17 gm 06/27/25 01:06 Polyethylene Glycol 3350 17 Gm Powd.Pack PO QAM PRN Constipation Polysaccharide Iron Complex 150 mg 06/27/25 08:00 06/27/25 09:59 Polysaccharide Iron Complex 150 Mg Capsule PO 150 mg DAILY@0800 YUNIOR Administration Ranolazine 500 mg 06/27/25 02:20 06/27/25 02:36 Ranolazine 500 Mg Tab.Er.12h PO 500 mg Q12HR YUNIOR Administration Sodium Chloride 1 gm 06/27/25 02:15 06/27/25 09:59 Sodium Chloride 1 Gm Tablet PO 1 gm BID YUNIOR Administration Tamsulosin HCl 0.4 mg 06/27/25 18:00 Tamsulosin Hcl 0.4 Mg Capsule PO QPM [facility] Radiology Results: ITS Impressions Chest X-Ray 06/26/25 17:49 Impression: Mild CHF Renal Ultrasound 06/27/25 12:21 IMPRESSION: 1. Normal right kidney and suboptimally visualized but normal-appearing left kidney, both with no hydronephrosis. 2. Small amount of ascites in the pelvis. Labs Labs: Laboratory Results - last 24 hr 06/26/25 06/26/25 06/26/25 17:11 17:25 18:50 WBC 2.8 L RBC 2.53 L Hgb 8.3 L Hct 25.1 L MCV 99.2 MCH 32.8 MCHC 33.1 RDW 15.9 H Plt Count 128 L MPV 9.6 Immature Gran % (Auto) 0.4 Neut % (Auto) 74.1 H Lymph % (Auto) 11.0 L [place] % (Auto) 12.7 H Eos % (Auto) 1.1 Baso % (Auto) 0.7 Lymph # (Auto) 0.31 L [place] # (Auto) 0.4 Eos # (Auto) 0.0 Baso # (Auto) 0.0 Abs Immat Gran (auto) 0.01 Absolute Neuts (auto) 2.1 Absolute Nucleated RBC 0.000 Nucleated RBC % 0.0 PT 26.6 H INR 2.6 APTT 45.1 H Puncture Site Right radial ABG pH 7.444 ABG pCO2 36.1 ABG pO2 88.9 ABG PO2/FiO2 Ratio 4.23 ABG HCO3 24.2 ABG O2 Saturation 97.1 ABG O2 Content 13.0 L ABG Base Excess 0.3 A-a Gradient 17.6 Oxyhemoglobin 95.6 Total Hemoglobin 9.6 L O2 Delivery Device Room air O2 Liters/Min Not Reportable FiO2 21 Sodium 127 L Potassium 5.1 H Chloride 93 L Carbon Dioxide 25 Anion Gap 9 BUN 99 H D Creatinine 2.96 H Estim Creat Clear Calc Not Reportable Estimated GFR 21 L Glucose 96 POC Capillary Glucose Lactic Acid 1.1 Calcium 8.8 Magnesium Total Bilirubin 1.5 H AST 47 ALT 22 Alkaline Phosphatase 211 H Troponin I 0.031 C-Reactive Protein 2.3 H NT-Pro-B Natriuret Pep 2980 H Total Protein 6.8 Albumin 3.4 L Urine Color Yellow Urine Appearance Clear Urine pH 5.5 Ur Specific [place] 1.014 Urine Protein Trace Urine Glucose (UA) Negative Urine Ketones Negative Ur Blood (Man) Negative Urine Nitrate Negative Urine Bilirubin Negative Urine Urobilinogen 1.0 Add Ur Microanalysis Reviewed Leukocyte Esterase Rfl Negative Urine RBC 0-2 Urine WBC 0-5 Ur Squamous Epith Cells None seen Urine Bacteria None seen Urine Casts 6-10 Influenza A (RT-PCR) Influenza B (RT-PCR) RSV (RT-PCR) SARS-CoV-2 RNA (RT-PCR) 06/26/25 06/27/25 06/27/25 21:24 01:18 05:25 WBC 3.5 L RBC 2.53 L Hgb 8.3 L Hct 25.3 L MCV 100.0 MCH 32.8 MCHC 32.8 RDW 15.9 H Plt Count 160 MPV 10.1 Immature Gran % (Auto) 0.3 Neut % (Auto) 75.1 H Lymph % (Auto) 10.7 L [place] % (Auto) 12.1 H Eos % (Auto) 1.2 Baso % (Auto) 0.6 Lymph # (Auto) 0.37 L [place] # (Auto) 0.4 Eos # (Auto) 0.0 Baso # (Auto) 0.0 Abs Immat Gran (auto) 0.01 Absolute Neuts (auto) 2.6 Absolute Nucleated RBC 0.000 Nucleated RBC % 0.0 PT INR APTT Puncture Site ABG pH ABG pCO2 ABG pO2 ABG PO2/FiO2 Ratio ABG HCO3 ABG O2 Saturation ABG O2 Content ABG Base Excess A-a Gradient Oxyhemoglobin Total Hemoglobin O2 Delivery Device O2 Liters/Min FiO2 Sodium 126 L 128 L Potassium 5.0 5.3 H Chloride 95 L 95 L Carbon Dioxide 22 21 L Anion Gap 9 12 BUN 95 H 95 H Creatinine 2.81 H 2.76 H Estim Creat Clear Calc 29 29 Estimated GFR 22 L 22 L Glucose 98 109 POC Capillary Glucose 83 Lactic Acid Calcium 8.6 8.6 Magnesium 2.4 H Total Bilirubin AST ALT Alkaline Phosphatase Troponin I C-Reactive Protein NT-Pro-B Natriuret Pep Total Protein Albumin Urine Color Urine Appearance Urine pH Ur Specific [place] Urine Protein Urine Glucose (UA) Urine Ketones Ur Blood (Man) Urine Nitrate Urine Bilirubin Urine Urobilinogen Add Ur Microanalysis Leukocyte Esterase Rfl Urine RBC Urine WBC Ur Squamous Epith Cells Urine Bacteria Urine Casts Influenza A (RT-PCR) Negative Influenza B (RT-PCR) Negative RSV (RT-PCR) Negative SARS-CoV-2 RNA (RT-PCR) Negative 06/27/25 06/27/25 08:13 12:28 WBC RBC Hgb Hct MCV MCH MCHC RDW Plt Count MPV Immature Gran % (Auto) Neut % (Auto) Lymph % (Auto) [place] % (Auto) Eos % (Auto) Baso % (Auto) Lymph # (Auto) [place] # (Auto) Eos # (Auto) Baso # (Auto) Abs Immat Gran (auto) Absolute Neuts (auto) Absolute Nucleated RBC Nucleated RBC % PT INR APTT Puncture Site ABG pH ABG pCO2 ABG pO2 ABG PO2/FiO2 Ratio ABG HCO3 ABG O2 Saturation ABG O2 Content ABG Base Excess A-a Gradient Oxyhemoglobin Total Hemoglobin O2 Delivery Device O2 Liters/Min FiO2 Sodium Potassium Chloride Carbon Dioxide Anion Gap BUN Creatinine Estim Creat Clear Calc Estimated GFR Glucose POC Capillary Glucose 121 H 127 H Lactic Acid Calcium Magnesium Total Bilirubin AST ALT Alkaline Phosphatase Troponin I C-Reactive Protein NT-Pro-B Natriuret Pep Total Protein Albumin Urine Color Urine Appearance Urine pH Ur Specific [place] Urine Protein Urine Glucose (UA) Urine Ketones Ur Blood (Man) Urine Nitrate Urine Bilirubin Urine Urobilinogen Add Ur Microanalysis Leukocyte Esterase Rfl Urine RBC Urine WBC Ur Squamous Epith Cells Urine Bacteria Urine Casts Influenza A (RT-PCR) Influenza B (RT-PCR) RSV (RT-PCR) SARS-CoV-2 RNA (RT-PCR) Quality VTE Prophylaxis VTE prophylaxis: pharmacologic ordered
[2025-06-27] MEDS: FUROSEMIDE INJ 40 MG/4 ML VIAL IV PUSH (17:02)
[2025-06-27] MEDS: TAMSULOSIN HCL 0.4 MG CAPSULE PO (17:02)
[2025-06-28] VITALS (9 sets, daily range): BP systolic 110–124; BP diastolic 36–60; PULSE 49–57; RESP 17–22; TEMP 36.4–36.8; O2SAT 98–100
[2025-06-28 04:23] LABS: Hematocrit 24.6 % (42.0-52.0); Hemoglobin 8.1 g/dL (14.0-18.0); Immature Granulocyte Percent A 0.2 % (0-0.5); Lymphocytes Absolute Auto 0.32 K/mm3 (0.9-3.2); Mean Corpuscular HGB Conc 32.9 g/dl (32-36); Mean Corpuscular Hemoglobin 32.3 pg (26-34); Mean Corpuscular Volume 98.0 fl (80-100); Nucleated Red Blood Cells Absolute Auto 0.000 K/mm3 (0.0-0.012); Nucleated Red Blood Cells Perc 0.0 % (0.0-0.2); Platelet Count Result 127 k/mm3 (150-375); Red Blood Count 2.51 M/mm3 (4.6-6.20); White Blood Count 4.2 K/mm3 (4.5-10.0)
[2025-06-28 04:50] LABS: Anion Gap 9 mmol/L (4-12); Blood Urea Nitrogen 98 mg/dL (9-20); Calcium 8.5 mg/dL (8.4-10.2); Carbon Dioxide 23 mmol/L (22-30); Chloride 94 mmol/L (98-107); Estimated CRCL calculation 30 ml/min; Estimated Glomerular Filt Rate 23; Glucose 144 mg/dL (65-110); Magnesium 2.2 mg/dL (1.6-2.3); Potassium 4.5 mmol/L (3.4-5.0); Sodium 126 mmol/L (137-145)
[2025-06-28] MEDS: FUROSEMIDE INJ 40 MG/4 ML VIAL IV PUSH ×2 (08:56→17:12)
[2025-06-28] MEDS: PANTOPRAZOLE 40 MG TABLET PO (08:56)
[2025-06-28] MEDS: SODIUM CHLORIDE 1 GM TABLET PO ×2 (08:56→17:12)
[2025-06-28] MEDS: APIXABAN 5 MG TABLET PO ×2 (08:56→21:48)
[2025-06-28] MEDS: RANOLAZINE 500 MG TAB.ER.12H PO ×2 (08:56→21:49)
--- NOTE | 2025-06-28 10:00 | P.CONNP_ITS ---
Assessment and Plan Assessment and plan (1) Acute kidney injury: Code(s): N17.9 - Acute kidney failure, unspecified Status: Acute Assessment and Plan: * as noted on admission - creatinine of 2.96mg/dL * etiology not clear -- suspect: * CHF exacerbation * variation of cardio-renal syndrome (diminished ECF) * renal venous hypertension * element of intravascular volume depletion (despite clear evidence of overload) * relative anemia * relative hypotension * other(?) * renal u/s without obstruction * check urine studies and CPK * follow trend of repeat labs and UOP (2) Stage 3 chronic kidney disease: Code(s): N18.30 - Chronic kidney disease, stage 3 unspecified Status: Chronic Assessment and Plan: * baseline creatinine runs around 1.2 - 1.6mg/dl for the last few years * this causes this to fluctuate between CKD stage 3A and 3B * presumably due to diabetes, hypertension, vascular disease (CAD + CHF + hyperlipidemia), MARIANNA, obesity, and age-related disease * however, it is possible he needs a higher creatinine to maintain his volume status.... (3) Acute exacerbation of CHF (congestive heart failure): Qualifiers: Heart failure type: diastolic Qualified Code(s): I50.33 - Acute on chronic diastolic (congestive) heart failure Code(s): I50.9 - Heart failure, unspecified Status: Acute Assessment and Plan: * based on evidence to date: * significant LE edema/swelling * bibasilar crackles on respiratory exam * CXR with mild CHF * elevated proBNP * recent Echo (on 04/15/25) noted: * left ventricular systolic function is normal, estimated at 55 - 60% * left ventricular diastolic function is grade II diastolic * moderate aortic valve calcification * mild aortic valve stenosis * \mild mitral valve regurgitation * moderate to severe tricuspid valve regurgitation * severe pulmonary hypertension, estimated pulmonary arterial systolic pressure is 72 mmHg * mild pulmonic regurgitation * follow daily weights * monitor I/Os (4) Anasarca: Code(s): R60.1 - Generalized edema Status: Acute Assessment and Plan: * significant lower extremity edema noted * suspect due to pulmonary HTN and TR as noted by previous Echo * on IV diuretic therapy: * follow I/Os and daily weights * continue fluid restriction (5) Atrial fibrillation: Qualifiers: Atrial fibrillation type: persistent (not longstanding) Qualified Code(s): I48.19 - Other persistent atrial fibrillation Code(s): I48.91 - Unspecified atrial fibrillation Status: Chronic Assessment and Plan: * known history * rate control strategy * on anticoagulation (6) Hyponatremia: Code(s): E87.1 - Hypo-osmolality and hyponatremia Status: Acute Assessment and Plan: * acute on chronic * sodium has been normal at times but seems to average ~ 130 -136mmol/L in the last few years * suspect acute drop due to volume overload/hypervolemia * on IV diuretics adjusted * on fluid restriction * for further evaluation -- check TSH, cortisol, SPEP, UPEP, and kappa/lambda ratio as well as serum/urine osmolality * already on salt tabs (7) Generalized weakness: Code(s): R53.1 - Weakness Status: Acute Assessment and Plan: * presumably due to previous falls, orthopedic injuries, recent hospitalization, and deconditioning * s/p stay at 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 Thank you for allowing me to participate in the care of this patient. L History of Present Illness Reason for Consult Consult date: 06/28/25 Reason for consult: acute renal failure (on chronic kidney disease) Chief Complaint Chief complaint: CHF, AALIYAH, pancytopenia, chronic hyponatremia History of Present Illness Narrative: The patient is a 79-year-old male with a past medical history as outlined below who presented to [facility] Emergency Room with weakness and shortness of breath. The patient was just recently discharged from [facility] after being hospitalized here at [facility] in late May of 2025. He was initially hospitalized at [facility] in late May of this year for a left inferior pubic ramus fracture and left acetabulum fracture along with acute kidney injury on top of his baseline chronic kidney disease. His renal function stabilized by the time of his hospital discharge and he was seen by Orthopedic surgery who recommended conservative therapy for his fractures with no surgical intervention. He was subsequently discharged to [facility] for further therapy due to his deconditioned state. He did well with acute rehab and was recently discharged from [facility] about a week ago. Apparently, his shortness of breath started acutely around the middle of the day on the day of admission. He reports that he was not really doing any physical activity and gave no other complaints with regard to chest pain, cough, fever, chills, abdominal pain, nausea, vomiting, or diarrhea. He is noted to have chronic swelling and edema but is difficult to ascertain if this has changed or worsened as the patient does not routinely assess his daily weights or look at his lower extremity swelling/edema. He reports compliance with his medications since his discharge from [facility]. He does state though that he has not been urinating as much as he usually does for the past few days prior to his presentation to the ER. Given his shortness of breath and ongoing weakness, he called EMS and was subsequently transported to the emergency room for further assessment. Workup and evaluation in the emergency room demonstrated the patient to be hemodynamically stable and afebrile with stable oxygenation on room air. Routine blood test demonstrated a white blood cell count of 2.8, hemoglobin 8.3, hematocrit 25.1, platelet count of 128, sodium 127, potassium 5.1, chloride 93, bicarb 25, BUN 99, creatinine 2.96, glucose 96 normal lactic acid, normal LFTs with the exception of a mildly elevated alkaline phosphatase 211, proBNP of 2009 heard 80, andan albumin of 3.4. his urinalysis was negative for a urinary tract infection and his ABG showed a pH is 7.44, pCO2 of 36.1, and a PO2 of 88.9 on room air. His chest x-ray showed mild CHF. His EKG demonstrated atrial fibrillation with a slow response and no evidence of ischemic changes.Given these constellation of symptoms in conjunction with his laboratory/ imaging findings with regard to a suspected CHF exacerbation along with acute kidney injury on top of his baseline kidney disease, he was admitted to the hospital for further evaluation and therapy. Since his admission, he has been fairly responsive to IV diuretic therapy with relative stability if not improvement in his renal function/creatinine along with this potassium level. Renal consultation was requested due to his acute kidney injury/acute renal failure on top of his baseline chronic kidney disease. The patient is somewhat familiar to me as I took care of him during his recent hospitalization here at [facility] and saw him briefly while he was undergoing rehabilitation/ PT/ OT at [facility]. From review of his records here at [facility], it would seem that his baseline creatinine runs around 1.2 - 1.6 mg/dL. On discharge from [facility] about a week ago, his creatinine was 1.27 mg/dL. On admission, as mentioned above, his creatinine was 2.96 mg/dL with slow and steady improvement to 2.69 mg/dL by labs done this morning despite ongoing IV diuretic therapy. His potassium was mildly elevated on admission as well but appears to have stabilized by labs done this morning as well. Currently, at the time my evaluation, he appears to be in no acute distress. Review of Systems 2 Review of Systems: As per HPI. [facility] Past Medical History Medical History Hypotension Atrial fibrillation Cirrhosis Pulmonary hypertension Tricuspid regurgitation severe Hyponatremia Acute exacerbation of CHF (congestive heart failure) History of renal cell carcinoma History of prostate cancer Skin tear of right lower leg without complication Pre-ulcerative corn or callous Kidney mass Pancreatic mass Nausea & vomiting Anemia Acquired deformity of left thigh Preoperative clearance Foot lesion Cellulitis Elsa tropicalis infection Fall Bronchitis Elevated carbon dioxide level Alkaline phosphatase elevation Prostate cancer screening Body mass index (BMI) of 40.1 to 44.9 in adult Degenerative joint disease of knee Renal malignant neoplasm Prostate CA Intracranial atherosclerosis Eczema Hypertensive urgency Non-STEMI (non-ST elevated myocardial infarction) Most recent non-STEMI 12/11/2018 Obstructive sleep apnea Intolerant to CPAP Prostate cancer Renal cell carcinoma Elevated PSA, between 10 and less than 20 ng/ml Vertigo Morbid (severe) obesity due to excess calories Abnormality of gait CAD (coronary artery disease) Multivessel coronary artery disease with stents to the proximal and distal LAD, mid right coronary artery July 2014 with prior catheterization performed IslamJanuary 2018 had severe diffuse 3 vessel coronary artery disease with multiple stenoses of about 70% and mid to distal LAD between previously placed proximal and distal stents, 50-70% diffuse stenosis of the circumflex with a proximal stenosis of: To and total occlusion of a the marginal branch and diffuse distal right coronary artery disease with occluded RPDA referred for CABG DM neuropathy with neurologic complication GERD (gastroesophageal reflux disease) Dyslipidemia Hypertension Surgical History Surgical History History of right hip hemiarthroplasty Status post open reduction with internal fixation of fracture Of left leg at age 21 Stented coronary artery Hx of tonsillectomy S/P CABG (coronary artery bypass graft) (04/2018) YESENIA to LAD, vein graft to OM, radial graft to RPDA, RCA was diffusely diseased and not a great target for bypass, LAD was also diffusely diseased Family History Family History Father Family history of heart disease in male family member before age 55 Acute myocardial infarction Hypertension Mother Family history of heart disease in male family member before age 55 Acute myocardial infarction Emphysema of lung Asthma Sibling Family history of heart disease in male family member before age 55 Acute myocardial infarction Hypertension Polycystic kidney disease Sibling Family history of heart disease in male family member before age 55 Acute myocardial infarction Breast cancer Sibling Emphysema of lung Cerebrovascular accident Son Acute myocardial infarction Social History Social History Social History: He is and lives alone. He has an adult son and a daughter. 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 He is a lifelong nonsmoker and does not drink alcohol. Code status: Full code (he would not want to be on long-term life support or have a tracheostomy or PEG tube.) Surrogate decision maker: Adjacent (son) Smoking status: Never smoker Second hand tobacco smoke exposure: Yes Alcohol intake: never Substance use: never Substance use type: does not use Do You Feel Safe in your Home?: Yes Lack of Transportation: No Lack of Food: Never True Current Housing: I Have Housing Concerned About Future Housing: No Difficulty Paying Gas/Electric Bills: YES Difficulty Paying for Meds: YES Currently Unemployed: No Education: Master's Degree or Higher Difficulty w/ Childcare or Family Care: No Living arrangements: alone Occupation/Education: retired Gender identity (if verbalized by the patient): Male Sexual Orientation (if Verbalized by the Patient): Straight or Heterosexual Spiritual care concerns: No Meds Home Medications and Allergies Home Medications ?Medication ?Instructions ?Recorded ?Confirmed ?Type evolocumab 140 mg/mL subcutaneous 140 mg subcut Q2WEEK S 05/07/21 06/26/25 History pen injector (Aman Ryder) polysaccharide iron complex 150 mg 150 mg PO DAILY #90 caps 11/22/24 06/26/25 Rx iron capsule (Poly-Iron) nitroglycerin 0.4 mg sublingual See Rx Instructions .R oute 04/07/25 06/26/25 Rx tablet .COMPLEX #100 tabs melatonin 3 mg tablet 3 mg PO HS #0 tabs 05/06/25 06/26/25 Rx pantoprazole 40 mg tablet,delayed 40 mg PO QAM #30 tab s 05/06/25 06/26/25 Rx release ranolazine 500 mg tablet,extended 500 mg PO Q12H #60 t abs 05/06/25 06/26/25 Rx release,12 hr blood-glucose sensor (FreeStyle #1 ea 06/01/25 5 Rx [place] 3 Sensor device) polyethylene glycol 3350 17 gram 17 g PO QAM PRN const ipation 06/01/25 06/26/25 History oral powder packet (Miralax) insulin glargine 100 unit/mL 25 unit (0.25 mL) subcut Q12HR #10 06/06/25 06/26/25 Rx subcutaneous solution (Lantus mL U-100 Insulin) apixaban 5 mg tablet (Eliquis) 5 mg PO Q12HR #60 tabs 06/19/25 06/26/25 Rx furosemide 20 mg tablet 60 mg (3 x 20 mg) PO BIDWM 1 5 days 06/19/25 06/26/25 Rx #90 tabs tamsulosin 0.4 mg capsule 0.4 mg PO QPM #30 caps 06/1906/26/25 Rx sodium chloride 1,000 mg soluble 1,000 mg PO BID #60 t abs 06/23/25 06/26/25 Rx tablet acetaminophen 500 mg tablet 1,000 mg PO Q6H 06/26/25 0 06/26/25 History (Acetaminophen Extra Strength) carvedilol 12.5 mg tablet 12.5 mg PO Q12H 06/26/25 History insulin aspart U-100 100 unit/mL 1 sliding scale dose subcut TID 06/26/25 06/26/25 History (3 mL) subcutaneous pen (Novolog PRN hyperglycemia FlexPen U-100 Insulin aspart) isosorbide mononitrate 30 mg 30 mg PO QAM 06/26/25 History tablet,extended release 24 hr metolazone 2.5 mg tablet 2.5 mg PO QAM 06/26/2506/26 History spironolactone 25 mg tablet 25 mg PO QAM 06/26/2506/07 History Allergies Allergy/AdvReac Type Severity Reaction Status Date / Time Penicillins Allergy Severe Anaphylaxis Verified 06/26/25 22:23 adhesive tape Allergy Mild rash Verified 06/26/25 22:23 liraglutide Allergy Unknown Hives / Verified 06/26/25 22:23 Red Face Rssrmby-SOI-GeQ Reductase AdvReac Unknown Muscle Verified 06/26/25 22:23 Inhibitor (Kfkrgym-Dcf-Rem Spasms Reductase Inhibitor) Vital Signs Vital Signs Temp Pulse Resp BP Pulse Ox O2 Del Method 06/28/25 08:07 97.7 F 53 L 22 H 124/36 L 100 06/28/25 08:00 57 L 06/28/25 04:00 53 L 06/28/25 00:00 97.8 F 06/28/25 00:00 54 L 06/28/25 00:00 97.8 F 54 L 18 120/60 98 06/27/25 23:30 97.0 F L 06/27/25 23:00 96.6 F L 06/27/25 23:00 96.6 F L 06/27/25 22:30 96.2 F L 06/27/25 22:00 95.9 F L 06/27/25 21:30 95.9 F L 06/27/25 21:00 95.7 F L 06/27/25 20:45 95.6 F L 06/27/25 20:30 95.5 F L 06/27/25 20:26 95.5 F L 55 L 16 117/53 L 100 06/27/25 20:15 95.4 F L 06/27/25 20:00 95.5 F L 06/27/25 20:00 53 L 06/27/25 20:00 Room Air 06/27/25 16:12 53 L 06/27/25 16:00 97.5 F L 52 L 18 137/51 L 99 Exam 2 Narrative: GENERAL APPEARANCE: elderly but well developed well nourished male in no acute distress HEENT: normocephalic, normal conjunctiva and sclera, nares patent NECK: no lymphadenopathy, thyromegaly, or JVD MOUTH: normal lips, teeth, and gums CARDIOVASCULAR: RRR, normal S1 and S2, no rub RESPIRATORY: clear anteriorly with some bibasilar crackles ABDOMEN: soft, nontender, nondistended, positive bowel sounds present EXTREMITIES: no evidence of cyanosis, clubbing, 2 - 3+ edema NEUROLOGICAL: alert and oriented x 3; CN II - XII intact bilaterally; no focal deficits noted Results Lab Results 06/28/25 03:26 06/28/25 03:26 Lab results: Most recent lab results ABG pH 7.444 (7.350-7.450) 06/26/25 17:25 ABG pCO2 36.1 mmHg (35.0-45.0) 06/26/25 17:25 ABG pO2 88.9 mmHg (80.0-100.0) 06/26/25 17:25 ABG HCO3 24.2 mEq/l (22.0-26.0) 06/26/25 17:25 ABG O2 Saturation 97.1 % (95.0-100.0) 06/26/25 17: Calcium 8.5 mg/dL (8.4-10.2) 06/28/25 03:26 Magnesium 2.2 mg/dL (1.6-2.3) 06/28/25 03:26
--- NOTE | 2025-06-28 13:41 | PM.IMPN ---
Progress Note: A&P Assessment and Plan (1) Hypertension: Qualifiers: Hypertension type: essential hypertension Qualified Code(s): I10 - Essential (primary) hypertension Code(s): I10 - Essential (primary) hypertension Status: Chronic (2) Acute exacerbation of CHF (congestive heart failure): Qualifiers: Heart failure type: diastolic Qualified Code(s): I50.33 - Acute on chronic diastolic (congestive) heart failure Code(s): I50.9 - Heart failure, unspecified Status: Acute (3) Atrial fibrillation: Qualifiers: Atrial fibrillation type: persistent (not longstanding) Qualified Code(s): I48.19 - Other persistent atrial fibrillation Code(s): I48.91 - Unspecified atrial fibrillation Status: Chronic (4) Hyponatremia: Code(s): E87.1 - Hypo-osmolality and hyponatremia Status: Acute (5) Morbid (severe) obesity due to excess calories: Code(s): E66.01 - Morbid (severe) obesity due to excess calories Status: Acute (6) OREN (acute kidney injury): Code(s): N17.9 - Acute kidney failure, unspecified Status: Acute (7) Stage 3 chronic kidney disease: Code(s): N18.30 - Chronic kidney disease, stage 3 unspecified Status: Chronic (8) Acute hyperkalemia: Code(s): E87.5 - Hyperkalemia Status: Acute Plan 79-year-old male with a H CHF with grade 2 diastolic dysfunction, pulmonary hypertension, CAD status post CABG in 2018, paroxysmal atrial fibrillation, first-degree AV block, obesity, left bundle branch block, hyper and hypokalemia, chronic hyponatremia, history of renal cell carcinoma, history of prostate cancer, chronic pancytopenia, chronic debility, CKD stage 3, fracture of left inferior pubic ramus and left acetabulum fracture in 06/2025, 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 1. Acute SOB: ? acute chf/volume overload Currently on room air Continue with IV Lasix Add fluid restriction Strict eyes and nose Daily weight Compression stocking 2. Oren I on pre-existing CKD stage 3: Renal ultrasound unremarkable Potassium levels better Monitor kidney function with ongoing diuresis History of chronic hyponatremia, continue with salt tablets Renal consult 3. History of atrial fibrillation with slow ventricular response: Continue with tele monitoring No beta-blockers Continue with Eliquis 4. History of diabetes mellitus: Blood glucose checked t.i.d. a.c. and HS Continue with sliding scale insulin Recent hemoglobin 6.1 5. Constipation: Obtain x-ray KUB 6. Code status: Full 7. DVT prophylaxis: Eliquis 8. P.T./OT 9. Disposition: Pending improvement Time Spent With Patient Time: 38 minutes Subjective Date/time seen: 06/28/25 13:41 Interval history: Complains of constipation Review of Systems Review of Systems: All systems reviewed & are unremarkable except as noted in HPI and below Exam Narrative: General appearance: Well-developed Skin: 4+ edema bilaterally, compression stocking on Head: Normocephalic, nontraumatic Eyes: Clear conjunctiva ENT: Dry oral cavity and lips Neck: Supple, nontender Chest and respiratory: Airway patent, no respiratory distress,basilar rales bilaterally Heart: Bradycardia Abdomen: Soft, nontender, no organomegaly, quiet bowel sounds Vascular: Normal peripheral pulses, normal capillary refill. Musculoskeletal: Normal range of motion, nontender back Neurologic: Alert and oriented ?3, ART PSYCHOTHERAPIST is normal as tested, no gross motor deficit Objective Data Vital Signs Vital Signs: Vital Signs - 24 hr 06/27/25 16:00 06/27/25 16:12 06/27/25 20:00 Temperature 97.5 F L Pulse Rate 52 L 53 L Respiratory Rate 18 Blood Pressure 137/51 L Pulse Oximetry 99 Oxygen Delivery Room Air 06/27/25 20:00 06/27/25 20:00 06/27/25 20:15 Temperature 95.5 F L 95.4 F L Pulse Rate 53 L Respiratory Rate Blood Pressure Pulse Oximetry Oxygen Delivery 06/27/25 20:26 06/27/25 20:30 06/27/25 20:45 Temperature 95.5 F L 95.5 F L 95.6 F L Pulse Rate 55 L Respiratory Rate 16 Blood Pressure 117/53 L Pulse Oximetry 100 Oxygen Delivery 06/27/25 21:00 06/27/25 21:30 06/27/25 22:00 Temperature 95.7 F L 95.9 F L 95.9 F L Pulse Rate Respiratory Rate Blood Pressure Pulse Oximetry Oxygen Delivery 06/27/25 22:30 06/27/25 23:00 06/27/25 23:00 Temperature 96.2 F L 96.6 F L 96.6 F L Pulse Rate Respiratory Rate Blood Pressure Pulse Oximetry Oxygen Delivery 06/27/25 23:30 06/28/25 00:00 06/28/25 00:00 Temperature 97.0 F L 97.8 F Pulse Rate 54 L 54 L Respiratory Rate 18 Blood Pressure 120/60 Pulse Oximetry 98 Oxygen Delivery 06/28/25 00:00 06/28/25 04:00 06/28/25 08:00 Temperature 97.8 F Pulse Rate 53 L 57 L Respiratory Rate Blood Pressure Pulse Oximetry Oxygen Delivery 06/28/25 08:07 06/28/25 12:00 Temperature 97.7 F Pulse Rate 53 L 56 L Respiratory Rate 22 H Blood Pressure 124/36 L Pulse Oximetry 100 Oxygen Delivery Intake/Output Intake/Output: Intake & Output 06/25/25 06/26/25 06/27/25 06/28/25 23:59 23:59 23:59 23:59 Intake Total 1000 2000 600 Output Total 0 2760 1450 Balance 1000 -760 -850 Meds/Results Medications: Active Medications Generic Name Dose Route Start Last Admin Trade Name Freq PRN Reason Stop Dose Admin Acetaminophen 650 mg 06/26/25 19:39 06/27/25 21:15 Acetaminophen 325 Mg Tablet PO 650 mg Q4H PRN Administration Mild Pain (1-3) or Fever Apixaban 5 mg 06/27/25 02:15 06/28/25 08:56 Apixaban 5 Mg Tablet PO 5 mg Q12HR YUNIOR Administration Dextrose 12.5 gm 06/26/25 21:20 Dextrose 50% 25 Gm/50 Ml Syringe IV PUSH PRN PRN Hypoglycemia Protocol Furosemide 40 mg 06/27/25 17:00 06/28/25 08:56 Furosemide Inj 40 Mg/4 Ml Vial IV PUSH 40 mg BID YUNIOR Administration Glucose 15 gm 06/26/25 21:20 Glucose Oral Gel 15 Gm Of Glucse In 37.5 Gm Tube PO PRN PRN Hypoglycemia Protocol Dextrose 1,000 mls @ 100 mls/hr 06/26/25 21:20 Dextrose 5% 1,000 Ml IVPB PRN PRN Hypoglycemia Protocol Insulin Aspart 2 - 5 units 06/27/25 08:00 06/28/25 11:37 Insulin Aspart (*Bkc) 100 Units/Ml SUB-Q Not Given TIDWM YUNIOR Protocol Insulin Aspart 1 - 2 units 06/27/25 21:00 06/27/25 20:43 Insulin Aspart (*Bkc) 100 Units/Ml SUB-Q Not Given HS YUNIOR Protocol Melatonin 3 mg 06/27/25 02:15 06/27/25 21:16 Melatonin 3 Mg Tablet PO 3 mg HS YUNIOR Administration Pantoprazole Sodium 40 mg 06/27/25 09:00 06/28/25 08:56 Pantoprazole 40 Mg Tablet PO 40 mg QAM YUNIOR Administration Polyethylene Glycol 17 gm 06/27/25 01:06 Polyethylene Glycol 3350 17 Gm Powd.Pack PO QAM PRN Constipation Polysaccharide Iron Complex 150 mg 06/27/25 08:00 06/28/25 08:56 Polysaccharide Iron Complex 150 Mg Capsule PO 150 mg DAILY@0800 YUNIOR Administration Ranolazine 500 mg 06/27/25 02:20 06/28/25 08:56 Ranolazine 500 Mg Tab.Er.12h PO 500 mg Q12HR YUNIOR Administration Sodium Chloride 1 gm 06/27/25 02:15 06/28/25 08:56 Sodium Chloride 1 Gm Tablet PO 1 gm BID YUNIOR Administration Tamsulosin HCl 0.4 mg 06/27/25 18:00 06/27/25 17:02 Tamsulosin Hcl 0.4 Mg Capsule PO 0.4 mg QPM YUNIOR Administration Radiology Results: ITS Impressions Chest X-Ray 06/26/25 17:49 Impression: Mild CHF Renal Ultrasound 06/27/25 12:21 IMPRESSION: 1. Normal right kidney and suboptimally visualized but normal-appearing left kidney, both with no hydronephrosis. 2. Small amount of ascites in the pelvis. Labs Labs: Laboratory Results - last 24 hr 06/27/25 06/27/25 06/28/25 15:34 20:14 03:26 WBC 4.2 L RBC 2.51 L Hgb 8.1 L Hct 24.6 L MCV 98.0 MCH 32.3 MCHC 32.9 RDW 15.6 H Plt Count 127 L MPV 9.5 Immature Gran % (Auto) 0.2 Neut % (Auto) 78.4 H Lymph % (Auto) 7.6 L Angelina % (Auto) 13.1 H Eos % (Auto) 0.5 Baso % (Auto) 0.2 Lymph # (Auto) 0.32 L Angelina # (Auto) 0.6 Eos # (Auto) 0.0 Baso # (Auto) 0.0 Abs Immat Gran (auto) 0.01 Absolute Neuts (auto) 3.3 Absolute Nucleated RBC 0.000 Nucleated RBC % 0.0 Sodium 126 L Potassium 4.5 Chloride 94 L Carbon Dioxide 23 Anion Gap 9 BUN 98 H Creatinine 2.69 H Estim Creat Clear Calc 30 Estimated GFR 23 L Glucose 144 H POC Capillary Glucose 187 H 190 H Calcium 8.5 Magnesium 2.2 06/28/25 06/28/25 07:18 11:29 WBC RBC Hgb Hct MCV MCH MCHC RDW Plt Count MPV Immature Gran % (Auto) Neut % (Auto) Lymph % (Auto) Angelina % (Auto) Eos % (Auto) Baso % (Auto) Lymph # (Auto) Angelina # (Auto) Eos # (Auto) Baso # (Auto) Abs Immat Gran (auto) Absolute Neuts (auto) Absolute Nucleated RBC Nucleated RBC % Sodium Potassium Chloride Carbon Dioxide Anion Gap BUN Creatinine Estim Creat Clear Calc Estimated GFR Glucose POC Capillary Glucose 136 H 161 H Calcium Magnesium Quality VTE Prophylaxis VTE prophylaxis: pharmacologic ordered
[2025-06-28 15:14] LABS: Urine Eos QC 2nd Tech Confirmed
[2025-06-28] MEDS: TAMSULOSIN HCL 0.4 MG CAPSULE PO (17:12)
[2025-06-28] MEDS: MELATONIN 3 MG TABLET PO (21:48)
[2025-06-28] MEDS: ACETAMINOPHEN 325 MG TABLET 650 MG PO (21:48)
[2025-06-28] MEDS: INSULIN ASPART (*BKC) 100 UNITS/ML SUB-Q (21:48)
--- NOTE | 2025-06-28 23:45 | PC.NURSE ---
This patient, Lopez Guzman, was transferred to [ [id number] ] on 06/28/25 at 2345. Personal belongings sent with patient. Report given to [ Oriana RN @ [phone] ]. Appropriate documentation sent with patient.
[2025-06-29] VITALS (34 sets, daily range): BP systolic 104–120; BP diastolic 51–54; PULSE 49–110; RESP 16–18; TEMP 36.2–37.1; O2SAT 99–100
[2025-06-29 05:54] LABS: Total Protein Urine Random 50 mg/dL; Ur Ttl Prot Creatinine Ratio 0.81 mg/mg (0-0.20)
[2025-06-29 05:58] LABS: Urea Random Urine 532 MG/DL
[2025-06-29 06:47] LABS: Hematocrit 25.0 % (42.0-52.0); Hemoglobin 8.2 g/dL (14.0-18.0); Immature Granulocyte Percent A 0.3 % (0-0.5); Lymphocytes Absolute Auto 0.34 K/mm3 (0.9-3.2); Mean Corpuscular HGB Conc 32.8 g/dl (32-36); Mean Corpuscular Hemoglobin 32.5 pg (26-34); Mean Corpuscular Volume 99.2 fl (80-100); Nucleated Red Blood Cells Absolute Auto 0.000 K/mm3 (0.0-0.012); Nucleated Red Blood Cells Perc 0.0 % (0.0-0.2); Platelet Count Result 123 k/mm3 (150-375); Red Blood Count 2.52 M/mm3 (4.6-6.20); White Blood Count 3.8 K/mm3 (4.5-10.0)
[2025-06-29 07:10] LABS: Anion Gap 9 mmol/L (4-12); Blood Urea Nitrogen 92 mg/dL (9-20); Calcium 8.7 mg/dL (8.4-10.2); Carbon Dioxide 26 mmol/L (22-30); Chloride 94 mmol/L (98-107); Creatine Kinase 33 U/L (55-170); Estimated CRCL calculation 36 ml/min; Estimated Glomerular Filt Rate 28; Glucose 151 mg/dL (65-110); Magnesium 2.4 mg/dL (1.6-2.3); Potassium 4.0 mmol/L (3.4-5.0); Sodium 129 mmol/L (137-145)
[2025-06-29 07:44] LABS: Thyroid Stimulating Hormone Reflex 3.100 uIU/mL (0.465-4.68)
[2025-06-29] MEDS: APIXABAN 5 MG TABLET PO ×2 (09:02→22:03)
[2025-06-29] MEDS: SODIUM CHLORIDE 1 GM TABLET PO ×2 (09:03→17:22)
[2025-06-29] MEDS: RANOLAZINE 500 MG TAB.ER.12H PO ×2 (09:03→22:04)
[2025-06-29] MEDS: PANTOPRAZOLE 40 MG TABLET PO (09:03)
[2025-06-29] MEDS: FUROSEMIDE INJ 40 MG/4 ML VIAL IV PUSH (09:03)
--- NOTE | 2025-06-29 10:00 | PM.IMPN ---
Progress Note: A&P Assessment and Plan (1) Hypertension: Qualifiers: Hypertension type: essential hypertension Qualified Code(s): I10 - Essential (primary) hypertension Code(s): I10 - Essential (primary) hypertension Status: Chronic (2) Acute exacerbation of CHF (congestive heart failure): Qualifiers: Heart failure type: diastolic Qualified Code(s): I50.33 - Acute on chronic diastolic (congestive) heart failure Code(s): I50.9 - Heart failure, unspecified Status: Acute (3) Atrial fibrillation: Qualifiers: Atrial fibrillation type: persistent (not longstanding) Qualified Code(s): I48.19 - Other persistent atrial fibrillation Code(s): I48.91 - Unspecified atrial fibrillation Status: Chronic (4) Hyponatremia: Code(s): E87.1 - Hypo-osmolality and hyponatremia Status: Acute (5) Morbid (severe) obesity due to excess calories: Code(s): E66.01 - Morbid (severe) obesity due to excess calories Status: Acute (6) OREN (acute kidney injury): Code(s): N17.9 - Acute kidney failure, unspecified Status: Acute (7) Stage 3 chronic kidney disease: Code(s): N18.30 - Chronic kidney disease, stage 3 unspecified Status: Chronic (8) Acute hyperkalemia: Code(s): E87.5 - Hyperkalemia Status: Acute Plan 79-year-old male with a PMH CHF with grade 2 diastolic dysfunction, pulmonary hypertension, CAD status post CABG in 2018, paroxysmal atrial fibrillation, first-degree AV block, obesity, left bundle branch block, hyper and hypokalemia, chronic hyponatremia, history of renal cell carcinoma, history of prostate cancer, chronic pancytopenia, chronic debility, CKD stage 3, fracture of left inferior pubic ramus and left acetabulum fracture in 06/2025, 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 Acute SOB: ? acute chf/volume overload Currently on room air Continue with IV Lasix Add fluid restriction Strict eyes and nose Daily weight Compression stocking Oren I on pre-existing CKD stage 3: Renal ultrasound unremarkable Potassium levels better Monitor kidney function with ongoing diuresis History of chronic hyponatremia, continue with salt tablets Renal consult History of atrial fibrillation with slow ventricular response: Continue with tele monitoring No beta-blockers Continue with Eliquis History of diabetes mellitus: Blood glucose checked t.i.d. a.c. and HS Continue with sliding scale insulin Recent hemoglobin 6.1 Constipation: Obtain x-ray KUB Code status: Full DVT prophylaxis: Eliquis P.T./OT . Disposition: Pending improvement Time Spent With Patient Time: 59 minutes Subjective Date/time seen: 06/29/25 10:00 Interval history: Overnight events Lost IV access. replacing Reporting constipation--scheduled miralax BID, added senna BID prn Sodium low, follow BMP Reason for hospitalization 79 y/o presented to the hospital for shortness of breath, edema. Treating COPD & CHF exacerbation. Hyponatremia--fluid restriction Review of Systems Review of Systems: All systems reviewed & are unremarkable except as noted in HPI and below Exam Narrative: General appearance: Well-developed Skin: 4+ edema bilaterally, compression stocking on Head: Normocephalic, nontraumatic Eyes: Clear conjunctiva ENT: Dry oral cavity and lips Neck: Supple, nontender Chest and respiratory: Airway patent, no respiratory distress,basilar rales bilaterally Heart: Bradycardia Abdomen: Soft, nontender, no organomegaly, quiet bowel sounds Vascular: Normal peripheral pulses, normal capillary refill. Musculoskeletal: Normal range of motion, nontender back Neurologic: Alert and oriented ?3, SENIOR HEALTH CONSULTANT is normal as tested, no gross motor deficit Objective Data Vital Signs Vital Signs: Vital Signs - 24 hr 06/28/25 12:00 06/28/25 16:00 06/28/25 16:07 Temperature 97.6 F Pulse Rate 56 L 50 L 49 L Respiratory Rate 20 Blood Pressure 110/43 L Pulse Oximetry 100 Oxygen Delivery 06/28/25 20:00 06/28/25 20:00 06/28/25 22:57 Temperature 98.2 F Pulse Rate 52 L 50 L Respiratory Rate 17 Blood Pressure 120/47 L Pulse Oximetry 100 Oxygen Delivery Room Air 06/28/25 23:30 06/29/25 00:00 06/29/25 03:35 Temperature 97.5 F L Pulse Rate 51 L 51 L Respiratory Rate 18 Blood Pressure 111/51 L Pulse Oximetry 99 Oxygen Delivery Room Air 06/29/25 04:00 Temperature Pulse Rate 53 L Respiratory Rate Blood Pressure Pulse Oximetry Oxygen Delivery Intake/Output Intake/Output: Intake & Output 09/21/06/27/25 06/28/25 06/29/25 23:59 23:59 23:59 23:59 Intake Total 1000 1999 1340 Output Total 0 2760 7980 250 Balance 4448 -412 -6043 -250 Meds/Results Medications: Active Medications Generic Name Dose Route Start Last Admin Trade Name Freq PRN Reason Stop Dose Admin Acetaminophen 650 mg 06/26/25 19:39 06/28/25 21:48 Acetaminophen 325 Mg Tablet PO 650 mg Q4H PRN Administration Mild Pain (1-3) or Fever Apixaban 5 mg 06/27/25 02:15 06/29/25 09:02 Apixaban 5 Mg Tablet PO 5 mg Q12HR YUNIOR Administration Dextrose 12.5 gm 06/26/25 21:20 Dextrose 50% 25 Gm/50 Ml Syringe IV PUSH PRN PRN Hypoglycemia Protocol Furosemide 40 mg 06/27/25 17:00 06/29/25 09:03 Furosemide Inj 40 Mg/4 Ml Vial IV PUSH 40 mg BID YUNIOR Administration Glucose 15 gm 06/26/25 21:20 Glucose Oral Gel 15 Gm Of Glucse In 37.5 Gm Tube PO PRN PRN Hypoglycemia Protocol Dextrose 1,000 mls @ 100 mls/hr 06/26/25 21:20 Dextrose 5% 1,000 Ml IVPB PRN PRN Hypoglycemia Protocol Insulin Aspart 2 - 5 units 06/27/25 08:00 06/29/25 08:59 Insulin Aspart (*Bkc) 100 Units/Ml SUB-Q Not Given TIDWM YUNIOR Protocol Insulin Aspart 1 - 2 units 06/27/25 21:00 06/28/25 21:48 Insulin Aspart (*Bkc) 100 Units/Ml SUB-Q 1 units HS YUNIOR Administration Protocol Melatonin 3 mg 06/27/25 02:15 06/28/25 21:48 Melatonin 3 Mg Tablet PO 3 mg HS YUNIOR Administration Pantoprazole Sodium 40 mg 06/27/25 09:00 06/29/25 09:03 Pantoprazole 40 Mg Tablet PO 40 mg QAM YUNIOR Administration Polyethylene Glycol 17 gm 06/27/25 01:06 Polyethylene Glycol 3350 17 Gm Powd.Pack PO QAM PRN Constipation Polysaccharide Iron Complex 150 mg 06/27/25 08:00 06/29/25 09:03 Polysaccharide Iron Complex 150 Mg Capsule PO 150 mg DAILY@0800 YUNIOR Administration Ranolazine 500 mg 06/27/25 02:20 06/29/25 09:03 Ranolazine 500 Mg Tab.Er.12h PO 500 mg Q12HR YUNIOR Administration Sodium Chloride 1 gm 06/27/25 02:15 06/29/25 09:03 Sodium Chloride 1 Gm Tablet PO 1 gm BID YUNIOR Administration Tamsulosin HCl 0.4 mg 06/27/25 18:00 06/28/25 17:12 Tamsulosin Hcl 0.4 Mg Capsule PO 0.4 mg QPM YUNIOR Administration Radiology Results: ITS Impressions Chest X-Ray 06/26/25 17:49 Impression: Mild CHF Renal Ultrasound 06/27/25 12:21 IMPRESSION: 1. Normal right kidney and suboptimally visualized but normal-appearing left kidney, both with no hydronephrosis. 2. Small amount of ascites in the pelvis. Abdomen X-Ray 06/28/25 14:47 IMPRESSION: 1. No acute findings. 2. Volume of stool not significantly increased. Labs Labs: Laboratory Results - last 24 hr 06/28/25 06/28/25 06/28/25 11:29 14:45 15:28 WBC RBC Hgb Hct MCV MCH MCHC RDW Plt Count MPV Immature Gran % (Auto) Neut % (Auto) Lymph % (Auto) Mineral % (Auto) Eos % (Auto) Baso % (Auto) Lymph # (Auto) Mineral # (Auto) Eos # (Auto) Baso # (Auto) Abs Immat Gran (auto) Absolute Neuts (auto) Absolute Nucleated RBC Nucleated RBC % Sodium Potassium Chloride Carbon Dioxide Anion Gap BUN Creatinine Estim Creat Clear Calc Estimated GFR Glucose POC Capillary Glucose 161 H 184 H Calcium Magnesium Total Creatine Kinase TSH (Reflex) Random Cortisol Urine Eosinophils 0.01 U Random Total Protein 50 Ur Random Sodium 52 Ur Random Urea 532 Urine Creatinine 61.7 Protein/Creat Ratio 2 0.81 H 06/28/25 06/28/25 06/29/25 21:31 23:49 06:35 WBC 3.8 L RBC 2.52 L Hgb 8.2 L Hct 25.0 L MCV 99.2 MCH 32.5 MCHC 32.8 RDW 15.8 H Plt Count 123 L MPV 9.8 Immature Gran % (Auto) 0.3 Neut % (Auto) 76.6 H Lymph % (Auto) 9.0 L Mineral % (Auto) 12.2 H Eos % (Auto) 1.6 Baso % (Auto) 0.3 Lymph # (Auto) 0.34 L Mineral # (Auto) 0.5 Eos # (Auto) 0.1 Baso # (Auto) 0.0 Abs Immat Gran (auto) 0.01 Absolute Neuts (auto) 2.9 Absolute Nucleated RBC 0.000 Nucleated RBC % 0.0 Sodium 129 L Potassium 4.0 Chloride 94 L Carbon Dioxide 26 Anion Gap 9 BUN 92 H Creatinine 2.25 H Estim Creat Clear Calc 36 Estimated GFR 28 L Glucose 151 H POC Capillary Glucose 210 H 180 H Calcium 8.7 Magnesium 2.4 H Total Creatine Kinase 33 L TSH (Reflex) 3.100 Random Cortisol 14.20 Urine Eosinophils U Random Total Protein Ur Random Sodium Ur Random Urea Urine Creatinine Protein/Creat Ratio 2 06/29/25 08:22 WBC RBC Hgb Hct MCV MCH MCHC RDW Plt Count MPV Immature Gran % (Auto) Neut % (Auto) Lymph % (Auto) Mineral % (Auto) Eos % (Auto) Baso % (Auto) Lymph # (Auto) Mineral # (Auto) Eos # (Auto) Baso # (Auto) Abs Immat Gran (auto) Absolute Neuts (auto) Absolute Nucleated RBC Nucleated RBC % Sodium Potassium Chloride Carbon Dioxide Anion Gap BUN Creatinine Estim Creat Clear Calc Estimated GFR Glucose POC Capillary Glucose 154 H Calcium Magnesium Total Creatine Kinase TSH (Reflex) Random Cortisol Urine Eosinophils U Random Total Protein Ur Random Sodium Ur Random Urea Urine Creatinine Protein/Creat Ratio 2 Quality VTE Prophylaxis VTE prophylaxis: pharmacologic ordered Hospitalist MIPS Advance Care Plan I have confirmed that the patient's Advanced Care Plan is present, code status is documented, or surrogate decision maker is listed in patient medical record.: Yes Medication Reconciliation I have utilized all available resources to obtain, update and review the patients current medications (includes all prescriptions, OTC, herbals, cannabis, and nutritional supplements).: Yes
--- NOTE | 2025-06-29 13:01 | P.PNNP_ITS ---
Progress Note: A&P Assessment and Plan (1) Acute kidney injury: Code(s): N17.9 - Acute kidney failure, unspecified Status: Acute Assessment and Plan: * as noted on admission - creatinine of 2.96mg/dL * etiology not clear -- suspect: * CHF exacerbation * variation of cardio-renal syndrome (diminished ECF) * renal venous hypertension * element of intravascular volume depletion (despite clear evidence of overload) * relative anemia * relative hypotension * other(?) * evaluation notedL * renal u/s without obstruction * urine electrolytes prerenal (by FeUrea) * urine eosinophils 0.01 * moderate proteinuria * CPK low * improvement noted with diuresis: * evidence of nephrosarca (?) * possible renal venous hypertension (?) * follow trend of repeat labs and UOP (2) Stage 3 chronic kidney disease: Code(s): N18.30 - Chronic kidney disease, stage 3 unspecified Status: Chronic Assessment and Plan: * baseline creatinine runs around 1.2 - 1.6mg/dl for the last few years * this causes this to fluctuate between CKD stage 3A and 3B * presumably due to diabetes, hypertension, vascular disease (CAD + CHF + hyperlipidemia), MARIANNA, obesity, and age-related disease * however, it is possible he needs a higher creatinine to maintain his volume status.... (3) Acute exacerbation of CHF (congestive heart failure): Qualifiers: Heart failure type: diastolic Qualified Code(s): I50.33 - Acute on chronic diastolic (congestive) heart failure Code(s): I50.9 - Heart failure, unspecified Status: Acute Assessment and Plan: * based on evidence to date: * significant LE edema/swelling * bibasilar crackles on respiratory exam * CXR with mild CHF * elevated proBNP * recent Echo (on 04/15/25) noted: * left ventricular systolic function is normal, estimated at 55 - 60% * left ventricular diastolic function is grade II diastolic * moderate aortic valve calcification * mild aortic valve stenosis * \mild mitral valve regurgitation * moderate to severe tricuspid valve regurgitation * severe pulmonary hypertension, estimated pulmonary arterial systolic pressure is 72 mmHg * mild pulmonic regurgitation * follow daily weights * monitor I/Os (4) Anasarca: Code(s): R60.1 - Generalized edema Status: Acute Assessment and Plan: * significant lower extremity edema noted * suspect due to pulmonary HTN and TR as noted by previous Echo * on IV diuretic therapy: * follow I/Os and daily weights * continue fluid restriction (5) Atrial fibrillation: Qualifiers: Atrial fibrillation type: persistent (not longstanding) Qualified Code(s): I48.19 - Other persistent atrial fibrillation Code(s): I48.91 - Unspecified atrial fibrillation Status: Chronic Assessment and Plan: * known history * rate control strategy * on anticoagulation (6) Hyponatremia: Code(s): E87.1 - Hypo-osmolality and hyponatremia Status: Acute Assessment and Plan: * stable if not improving * acute on chronic * sodium has been normal at times but seems to average ~ 130 -136mmol/L in the last few years * suspect acute drop due to volume overload/hypervolemia * on IV diuretics * on fluid restriction * evaluation to date noted: * TSH good * cortisol okay * SPEP/UPEP pending * serum/urine osmolality pending * already on salt tabs (prior to admission) (7) Generalized weakness: Code(s): R53.1 - Weakness Status: Acute Assessment and Plan: * presumably due to previous falls, orthopedic injuries, recent hospitalization, and deconditioning * s/p stay at [facility] with discharge on 06/20 * PT/OT as tolerated * need placement(?) (8) Diabetes mellitus with neuropathy: Qualifiers: Diabetes mellitus prison insulin use: with prison use Diabetes mellitus type: type 2 Qualified Code(s): E11.40 - Type 2 diabetes mellitus with diabetic neuropathy, unspecified; Z79.4 - alf (current) use of 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 L Subjective Date/time seen: 06/29/25 13:01 Interval history: Follow-up for acute kidney injury/acute renal failure on chronic kidney disease. Despite ongoing IV diuresis, renal function/creatinine/sodium continues to slowly improve; sitting up in chair in no apparent distress when seen; no acute issues/events overnight or earlier this morning. Exam 2 Narrative: General: elderly but WD/WN male in NAD Heart: normal S1 and S2; no rub Lungs: coarse and decreased at bases Abdomen: soft, nontender, nondistended, positive bowel sounds Extremities: no cyanosis or clubbing; 2+ edema Skin: warm and dry Objective Data Vital Signs Vital Signs: Vital Signs - 24 hr 06/28/25 20:00 06/28/25 20:00 06/28/25 22:57 Temperature 98.2 F Pulse Rate 52 L 50 L Respiratory Rate 17 Blood Pressure 120/47 L Pulse Oximetry 100 Oxygen Delivery Room Air 06/28/25 23:30 06/29/25 00:00 06/29/25 03:35 Temperature 97.5 F L Pulse Rate 51 L 51 L Respiratory Rate 18 Blood Pressure 111/51 L Pulse Oximetry 99 Oxygen Delivery Room Air 06/29/25 04:00 06/29/25 14:00 Temperature 97.2 F L Pulse Rate 53 L 52 L Respiratory Rate 18 Blood Pressure 120/54 L Pulse Oximetry 99 Oxygen Delivery Intake/Output Intake/Output: Intake & Output 06/26/25 06/27/25 06/28/25 06/29/25 23:59 23:59 23:59 23:59 Intake Total 1000 2000 1340 240 Output Total 0 2760 2450 250 Balance 1000 -760 -1110 -10 Meds/Results Medications: Active Medications Generic Name Dose Route Start Last Admin Trade Name Freq PRN Reason Stop Dose Admin Acetaminophen 650 mg 06/26/25 19:39 06/28/25 21:48 Acetaminophen 325 Mg Tablet PO 650 mg Q4H PRN Administration Mild Pain (1-3) or Fever Apixaban 5 mg 06/27/25 02:15 06/29/25 09:02 Apixaban 5 Mg Tablet PO 5 mg Q12HR YUNIOR Administration Dextrose 12.5 gm 06/26/25 21:20 Dextrose 50% 25 Gm/50 Ml Syringe IV PUSH PRN PRN Hypoglycemia Protocol Furosemide 40 mg 06/27/25 17:00 06/29/25 09:03 Furosemide Inj 40 Mg/4 Ml Vial IV PUSH 40 mg BID YUNIOR Administration Glucose 15 gm 06/26/25 21:20 Glucose Oral Gel 15 Gm Of Glucse In 37.5 Gm Tube PO PRN PRN Hypoglycemia Protocol Dextrose 1,000 mls @ 100 mls/hr 06/26/25 21:20 Dextrose 5% 1,000 Ml IVPB PRN PRN Hypoglycemia Protocol Insulin Aspart 2 - 5 units 06/27/25 08:00 06/29/25 12:10 Insulin Aspart (*Bkc) 100 Units/Ml SUB-Q Not Given TIDWM [facility] Protocol Insulin Aspart 1 - 2 units 06/27/25 21:00 06/28/25 21:48 Insulin Aspart (*Bkc) 100 Units/Ml SUB-Q 1 units HS YUNIOR Administration Protocol Melatonin 3 mg 06/27/25 02:15 06/28/25 21:48 Melatonin 3 Mg Tablet PO 3 mg HS YUNIOR Administration Pantoprazole Sodium 40 mg 06/27/25 09:00 06/29/25 09:03 Pantoprazole 40 Mg Tablet PO 40 mg QAM YUNIOR Administration Polyethylene Glycol 17 gm 06/29/25 17:00 Polyethylene Glycol 3350 17 Gm Powd.Pack PO BID YUNIOR Polysaccharide Iron Complex 150 mg 06/27/25 08:00 06/29/25 09:03 Polysaccharide Iron Complex 150 Mg Capsule PO 150 mg DAILY@0800 YUNIOR Administration Ranolazine 500 mg 06/27/25 02:20 06/29/25 09:03 Ranolazine 500 Mg Tab.Er.12h PO 500 mg Q12HR UYNIOR Administration Senna 8.6 mg 06/29/25 10:02 Sennosides 8.6 Mg Tablet PO BID PRN Constipation Sodium Chloride 1 gm 06/27/25 02:15 06/29/25 09:03 Sodium Chloride 1 Gm Tablet PO 1 gm BID YUNIOR Administration Tamsulosin HCl 0.4 mg 06/27/25 18:00 06/28/25 17:12 Tamsulosin Hcl 0.4 Mg Capsule PO 0.4 mg QPM YUNIOR Administration Radiology Results: ITS Impressions Chest X-Ray 06/26/25 17:49 Impression: Mild CHF Renal Ultrasound 06/27/25 12:21 IMPRESSION: 1. Normal right kidney and suboptimally visualized but normal-appearing left kidney, both with no hydronephrosis. 2. Small amount of ascites in the pelvis. Abdomen X-Ray 06/28/25 14:47 IMPRESSION: 1. No acute findings. 2. Volume of stool not significantly increased. Labs Labs: Laboratory Tests 06/29/25 06:35 06/29/25 06:35 Calcium 8.7 Magnesium 2.4 H Total Creatine Kinase 33 L TSH (Reflex) 3.100 Random Cortisol 14.20 Microbiology 06/26/25 18:50 Blood Blood Culture - Preliminary 06/26/25 18:50 Blood Blood Culture - Preliminary
[2025-06-29] MEDS: INSULIN ASPART (*BKC) 100 UNITS/ML SUB-Q (17:22)
[2025-06-29] MEDS: FUROSEMIDE INJ 40 MG/4 ML VIAL 60 MG IV PUSH (17:22)
[2025-06-29] MEDS: TAMSULOSIN HCL 0.4 MG CAPSULE PO (17:34)
[2025-06-29] MEDS: MELATONIN 3 MG TABLET PO (22:03)
[2025-06-29] MEDS: ACETAMINOPHEN 325 MG TABLET 650 MG PO (22:04)
[2025-06-30] VITALS (34 sets, daily range): BP systolic 108–132; BP diastolic 46–52; PULSE 49–555; RESP 16–20; TEMP 36.3–36.9; O2SAT 98–100
[2025-06-30 07:48] LABS: Hematocrit 24.5 % (42.0-52.0); Hemoglobin 7.9 g/dL (14.0-18.0); Immature Granulocyte Percent A 0.3 % (0-0.5); Lymphocytes Absolute Auto 0.35 K/mm3 (0.9-3.2); Mean Corpuscular HGB Conc 32.2 g/dl (32-36); Mean Corpuscular Hemoglobin 32.2 pg (26-34); Mean Corpuscular Volume 100.0 fl (80-100); Nucleated Red Blood Cells Absolute Auto 0.000 K/mm3 (0.0-0.012); Nucleated Red Blood Cells Perc 0.0 % (0.0-0.2); Platelet Count Result 107 k/mm3 (150-375); Red Blood Count 2.45 M/mm3 (4.6-6.20); White Blood Count 3.4 K/mm3 (4.5-10.0)
[2025-06-30 08:07] LABS: Anion Gap 6 mmol/L (4-12); Blood Urea Nitrogen 93 mg/dL (9-20); Calcium 8.6 mg/dL (8.4-10.2); Carbon Dioxide 29 mmol/L (22-30); Chloride 95 mmol/L (98-107); Estimated CRCL calculation 39 ml/min; Estimated Glomerular Filt Rate 31; Glucose 148 mg/dL (65-110); Magnesium 2.3 mg/dL (1.6-2.3); Potassium 3.9 mmol/L (3.4-5.0); Sodium 130 mmol/L (137-145)
[2025-06-30] MEDS: SODIUM CHLORIDE 1 GM TABLET PO ×2 (08:31→17:07)
[2025-06-30] MEDS: PANTOPRAZOLE 40 MG TABLET PO (08:31)
[2025-06-30] MEDS: RANOLAZINE 500 MG TAB.ER.12H PO ×2 (08:31→21:58)
[2025-06-30] MEDS: FUROSEMIDE INJ 40 MG/4 ML VIAL 60 MG IV PUSH (08:32)
[2025-06-30] MEDS: APIXABAN 5 MG TABLET PO ×2 (08:32→22:02)
--- NOTE | 2025-06-30 12:06 | P.PNIM_ITS ---
Progress Note: A&P Assessment and Plan (1) Hypertension: Qualifiers: Hypertension type: essential hypertension Qualified Code(s): I10 - Essential (primary) hypertension Code(s): I10 - Essential (primary) hypertension Status: Chronic (2) Acute exacerbation of CHF (congestive heart failure): Qualifiers: Heart failure type: diastolic Qualified Code(s): I50.33 - Acute on chronic diastolic (congestive) heart failure Code(s): I50.9 - Heart failure, unspecified Status: Acute (3) Atrial fibrillation: Qualifiers: Atrial fibrillation type: persistent (not longstanding) Qualified Code(s): I48.19 - Other persistent atrial fibrillation Code(s): I48.91 - Unspecified atrial fibrillation Status: Chronic (4) Hyponatremia: Code(s): E87.1 - Hypo-osmolality and hyponatremia Status: Acute (5) Morbid (severe) obesity due to excess calories: Code(s): E66.01 - Morbid (severe) obesity due to excess calories Status: Acute (6) AALIYAH (acute kidney injury): Code(s): N17.9 - Acute kidney failure, unspecified Status: Acute (7) Stage 3 chronic kidney disease: Code(s): N18.30 - Chronic kidney disease, stage 3 unspecified Status: Chronic (8) Acute hyperkalemia: Code(s): E87.5 - Hyperkalemia Status: Acute Plan 79-year-old male with a H CHF with grade 2 diastolic dysfunction, pulmonary hypertension, CAD status post CABG in 2018, paroxysmal atrial fibrillation, first-degree AV block, obesity, left bundle branch block, hyper and hypokalemia, chronic hyponatremia, history of renal cell carcinoma, history of prostate cancer, chronic pancytopenia, chronic debility, CKD stage 3, fracture of left inferior pubic ramus and left acetabulum fracture in 06/2025, 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 Acute SOB: Likely acute CHF exacerbation due to fluid overload. Currently on room air Continue with IV Lasix Fluid restriction Strict I&O Daily weight Compression stocking Hematuria Blood count trending down Irrigate simmons 100ml q6-8 Urology consult Follow CBC AALIYAH on pre-existing CKD stage 3: Creatinine trending down, 2.9<2.07 Renal ultrasound unremarkable Potassium levels normal History of chronic hyponatremia, continue with salt tablets Renal consult History of atrial fibrillation with slow ventricular response: Continue with tele monitoring No beta-blockers Continue Eliquis History of diabetes mellitus: Blood glucose checked t.i.d. a.c. and HS Continue with sliding scale insulin Recent hemoglobin 6.1 Constipation: 06/28 KUB normal bowel gas patter Full code DVT prophylaxis: Eliquis P.T./OT Disposition: Pending improvement Time Spent With Patient Time: 57 minutes Subjective Date/time seen: 06/30/25 12:06 Interval history: Improving but still has signficant scrotal and LE edema Creatinine trending down with IV lasix. Nephrology following Still having hematuria. Blood count trending down slightly Consult urology Hard stools, not back or bloody. Scheduling miralax, senna hs daily Review of Systems Review of Systems: All systems reviewed & are unremarkable except as noted in HPI and below Exam Narrative: General appearance: Well-developed Skin: 4+ edema bilaterally, compression stocking on Head: Normocephalic, nontraumatic Eyes: Clear conjunctiva ENT: Dry oral cavity and lips Neck: Supple, nontender Chest and respiratory: Airway patent, no respiratory distress,basilar rales bilaterally Heart: Bradycardia Abdomen: Soft, nontender, no organomegaly, quiet bowel sounds Vascular: Normal peripheral pulses, normal capillary refill. 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, no gross motor deficit Scrotal edema and LE edema Simmons catheter Objective Data Vital Signs Vital Signs: Vital Signs - 24 hr 06/29/25 13:30 06/29/25 13:59 06/29/25 14:00 Temperature 97.2 F L Pulse Rate 56 L 53 L 52 L Respiratory Rate 18 Blood Pressure 120/54 L Pulse Oximetry 99 Oxygen Delivery 06/29/25 14:00 06/29/25 14:15 06/29/25 14:30 Temperature Pulse Rate 52 L 57 L 53 L Respiratory Rate Blood Pressure Pulse Oximetry Oxygen Delivery 06/29/25 14:45 06/29/25 15:24 06/29/25 15:30 Temperature Pulse Rate 52 L 55 L 54 L Respiratory Rate Blood Pressure Pulse Oximetry Oxygen Delivery 06/29/25 15:45 06/29/25 16:00 06/29/25 16:00 Temperature Pulse Rate 51 L 50 L 49 L Respiratory Rate Blood Pressure Pulse Oximetry Oxygen Delivery 06/29/25 16:15 06/29/25 16:30 06/29/25 16:45 Temperature Pulse Rate 52 L 51 L 52 L Respiratory Rate Blood Pressure Pulse Oximetry Oxygen Delivery 06/29/25 17:00 06/29/25 17:15 06/29/25 17:40 Temperature Pulse Rate 57 L 58 L 55 L Respiratory Rate Blood Pressure Pulse Oximetry Oxygen Delivery 06/29/25 18:00 06/29/25 18:21 06/29/25 18:39 Temperature Pulse Rate 55 L 53 L 55 L Respiratory Rate Blood Pressure Pulse Oximetry Oxygen Delivery 06/29/25 19:54 06/29/25 20:00 06/29/25 20:00 Temperature Pulse Rate 54 L 55 L Respiratory Rate Blood Pressure Pulse Oximetry Oxygen Delivery Room Air 06/29/25 20:15 06/29/25 20:39 06/29/25 21:01 Temperature Pulse Rate 53 L 53 L 54 L Respiratory Rate Blood Pressure Pulse Oximetry Oxygen Delivery 06/29/25 21:29 06/29/25 21:33 06/29/25 21:56 Temperature 98.7 F Pulse Rate 110 H 57 L 55 L Respiratory Rate 16 Blood Pressure 104/51 L Pulse Oximetry 100 Oxygen Delivery 06/29/25 22:32 06/29/25 23:31 06/30/25 00:00 Temperature Pulse Rate 55 L 56 L 54 L Respiratory Rate Blood Pressure Pulse Oximetry Oxygen Delivery 06/30/25 00:03 06/30/25 00:19 06/30/25 00:32 Temperature Pulse Rate 53 L 51 L 54 L Respiratory Rate Blood Pressure Pulse Oximetry Oxygen Delivery 06/30/25 00:45 06/30/25 01:00 06/30/25 01:24 Temperature Pulse Rate 52 L 52 L 52 L Respiratory Rate Blood Pressure Pulse Oximetry Oxygen Delivery 06/30/25 01:33 06/30/25 01:45 06/30/25 02:00 Temperature Pulse Rate 54 L 52 L 54 L Respiratory Rate Blood Pressure Pulse Oximetry Oxygen Delivery 06/30/25 02:19 06/30/25 02:36 06/30/25 02:46 Temperature Pulse Rate 55 L 52 L 51 L Respiratory Rate Blood Pressure Pulse Oximetry Oxygen Delivery 06/30/25 03:01 06/30/25 03:39 06/30/25 03:58 Temperature Pulse Rate 53 L 51 L 49 L Respiratory Rate Blood Pressure Pulse Oximetry Oxygen Delivery 06/30/25 04:00 06/30/25 04:08 06/30/25 04:29 Temperature 97.7 F Pulse Rate 49 L 52 L 52 L Respiratory Rate 16 Blood Pressure 132/46 L Pulse Oximetry 98 Oxygen Delivery 06/30/25 04:30 06/30/25 04:31 06/30/25 04:46 Temperature Pulse Rate 52 L 53 L Respiratory Rate Blood Pressure 108/52 L Pulse Oximetry Oxygen Delivery 06/30/25 05:00 06/30/25 05:15 06/30/25 05:30 Temperature Pulse Rate 52 L 57 L 52 L Respiratory Rate Blood Pressure Pulse Oximetry Oxygen Delivery 06/30/25 05:45 06/30/25 06:00 06/30/25 08:00 Temperature Pulse Rate 56 L 55 L Respiratory Rate Blood Pressure Pulse Oximetry Oxygen Delivery Room Air 06/30/25 08:00 Temperature Pulse Rate 51 L Respiratory Rate Blood Pressure Pulse Oximetry Oxygen Delivery Intake/Output Intake/Output: Intake & Output 06/27/25 06/28/25 06/29/25 06/30/25 23:59 23:59 23:59 23:59 Intake Total 1999 1340 240 608 Output Total 2116 2450 1550 1750 [place] [id number] -1110 -1310 -1142 Meds/Results Medications: Active Medications Generic Name Dose Route Start Last Admin Trade Name Freq PRN Reason Stop Dose Admin Acetaminophen 650 mg 06/26/25 19:39 06/29/25 22:04 Acetaminophen 325 Mg Tablet PO 650 mg Q4H PRN Administration Mild Pain (1-3) or Fever Apixaban 5 mg 06/27/25 02:15 06/30/25 08:32 Apixaban 5 Mg Tablet PO 5 mg Q12HR YUNIOR Administration Dextrose 12.5 gm 06/26/25 21:20 Dextrose 50% 25 Gm/50 Ml Syringe IV PUSH PRN PRN Hypoglycemia Protocol Furosemide 60 mg 06/29/25 17:00 06/30/25 08:32 Furosemide Inj 40 Mg/4 Ml Vial IV PUSH 60 mg BID YUNIOR Administration Glucose 15 gm 06/26/25 21:20 Glucose Oral Gel 15 Gm Of Glucse In 37.5 Gm Tube PO PRN PRN Hypoglycemia Protocol Dextrose 1,000 mls @ 100 mls/hr 06/26/25 21:20 Dextrose 5% 1,000 Ml IVPB PRN PRN Hypoglycemia Protocol Insulin Aspart 2 - 5 units 06/27/25 08:00 06/30/25 08:30 Insulin Aspart (*Bkc) 100 Units/Ml SUB-Q Not Given TIDWM YUNIOR Protocol Insulin Aspart 1 - 2 units 06/27/25 21:00 06/29/25 22:04 Insulin Aspart (*Bkc) 100 Units/Ml SUB-Q Not Given HS YUNIOR Protocol Melatonin 3 mg 06/27/25 02:15 06/29/25 22:03 Melatonin 3 Mg Tablet PO 3 mg HS YUNIOR Administration Pantoprazole Sodium 40 mg 06/27/25 09:00 06/30/25 08:31 Pantoprazole 40 Mg Tablet PO 40 mg QAM YUNIOR Administration Polyethylene Glycol 17 gm 06/29/25 17:00 06/30/25 08:32 Polyethylene Glycol 3350 17 Gm Powd.Pack PO 17 gm BID YUNIOR Administration Polysaccharide Iron Complex 150 mg 06/27/25 08:00 06/30/25 08:31 Polysaccharide Iron Complex 150 Mg Capsule PO 150 mg DAILY@0800 YUNIOR Administration Ranolazine 500 mg 06/27/25 02:20 06/30/25 08:31 Ranolazine 500 Mg Tab.Er.12h PO 500 mg Q12HR YUNIOR Administration Senna 8.6 mg 06/29/25 10:02 Sennosides 8.6 Mg Tablet PO BID PRN Constipation Sodium Chloride 1 gm 06/27/25 02:15 06/30/25 08:31 Sodium Chloride 1 Gm Tablet PO 1 gm BID YUNIOR Administration Tamsulosin HCl 0.4 mg 06/27/25 18:00 06/29/25 17:34 Tamsulosin Hcl 0.4 Mg Capsule PO 0.4 mg QPM YUNIOR Administration Radiology Results: ITS Impressions Chest X-Ray 06/26/25 17:49 Impression: Mild CHF Renal Ultrasound 06/27/25 12:21 IMPRESSION: 1. Normal right kidney and suboptimally visualized but normal-appearing left kidney, both with no hydronephrosis. 2. Small amount of ascites in the pelvis. Abdomen X-Ray 06/28/25 14:47 IMPRESSION: 1. No acute findings. 2. Volume of stool not significantly increased. Labs Labs: Laboratory Results - last 24 hr 06/29/25 06/29/25 06/29/25 12:04 17:14 21:32 WBC RBC Hgb Hct MCV MCH MCHC RDW Plt Count MPV Immature Gran % (Auto) Neut % (Auto) Lymph % (Auto) [place] % (Auto) Eos % (Auto) Baso % (Auto) Lymph # (Auto) [place] # (Auto) Eos # (Auto) Baso # (Auto) Abs Immat Gran (auto) Absolute Neuts (auto) Absolute Nucleated RBC Nucleated RBC % Sodium Potassium Chloride Carbon Dioxide Anion Gap BUN Creatinine Estim Creat Clear Calc Estimated GFR Glucose POC Capillary Glucose 167 H 216 H 190 H Calcium Magnesium 06/30/25 06/30/25 06/30/25 07:38 07:39 11:31 WBC 3.4 L RBC 2.45 L Hgb 7.9 L Hct 24.5 L MCV 100.0 MCH 32.2 MCHC 32.2 RDW 15.7 H Plt Count 107 L MPV 9.6 Immature Gran % (Auto) 0.3 Neut % (Auto) 73.1 Lymph % (Auto) 10.3 L [place] % (Auto) 13.3 H Eos % (Auto) 2.7 Baso % (Auto) 0.3 Lymph # (Auto) 0.35 L [place] # (Auto) 0.5 Eos # (Auto) 0.1 Baso # (Auto) 0.0 Abs Immat Gran (auto) 0.01 Absolute Neuts (auto) 2.5 Absolute Nucleated RBC 0.000 Nucleated RBC % 0.0 Sodium 130 L Potassium 3.9 Chloride 95 L Carbon Dioxide 29 Anion Gap 6 BUN 93 H Creatinine 2.07 H Estim Creat Clear Calc 39 Estimated GFR 31 L Glucose 148 H POC Capillary Glucose 155 H 204 H Calcium 8.6 Magnesium 2.3 Quality VTE Prophylaxis VTE prophylaxis: pharmacologic ordered Hospitalist MIPS Advance Care Plan I have confirmed that the patient's Advanced Care Plan is present, code status is documented, or surrogate decision maker is listed in patient medical record.: Yes Medication Reconciliation I have utilized all available resources to obtain, update and review the patients current medications (includes all prescriptions, OTC, herbals, cannabis, and nutritional supplements).: Yes
[2025-06-30] MEDS: INSULIN ASPART (*BKC) 100 UNITS/ML SUB-Q ×2 (12:38→17:15)
--- NOTE | 2025-06-30 13:17 | P.PNNP_ITS ---
Progress Note: A&P Assessment and Plan (1) Acute kidney injury: Code(s): N17.9 - Acute kidney failure, unspecified Status: Acute Assessment and Plan: * slow improvement noted * as noted on admission - creatinine of 2.96mg/dL * etiology not clear -- suspect: * CHF exacerbation * variation of cardio-renal syndrome (diminished ECF) * renal venous hypertension * element of intravascular volume depletion (despite clear evidence of overload) * relative anemia * relative hypotension * other(?) * evaluation noted to date * renal u/s without obstruction * urine electrolytes prerenal (by FeUrea) * urine eosinophils 0.01 * moderate proteinuria * CPK low * improvement noted with diuresis: * evidence of nephrosarca (?) * possible renal venous hypertension (?) * follow trend of repeat labs and UOP (2) Stage 3 chronic kidney disease: Code(s): N18.30 - Chronic kidney disease, stage 3 unspecified Status: Chronic Assessment and Plan: * baseline creatinine runs around 1.2 - 1.6mg/dl for the last few years * this causes this to fluctuate between CKD stage 3A and 3B * presumably due to diabetes, hypertension, vascular disease (CAD + CHF + hyperlipidemia), MARIANNA, obesity, and age-related disease (3) Acute exacerbation of CHF (congestive heart failure): Qualifiers: Heart failure type: diastolic Qualified Code(s): I50.33 - Acute on chronic diastolic (congestive) heart failure Code(s): I50.9 - Heart failure, unspecified Status: Acute Assessment and Plan: * based on evidence to date: * significant LE edema/swelling * bibasilar crackles on respiratory exam * CXR with mild CHF * elevated proBNP * recent Echo (on 04/15/25) noted: * left ventricular systolic function is normal, estimated at 55 - 60% * left ventricular diastolic function is grade II diastolic * moderate aortic valve calcification * mild aortic valve stenosis * \mild mitral valve regurgitation * moderate to severe tricuspid valve regurgitation * severe pulmonary hypertension, estimated pulmonary arterial systolic pressure is 72 mmHg * mild pulmonic regurgitation * follow daily weights * monitor I/Os (4) Anasarca: Code(s): R60.1 - Generalized edema Status: Acute Assessment and Plan: * significant lower extremity edema noted * suspect due to pulmonary HTN and TR as noted by previous Echo * on IV diuretic therapy * follow I/Os and daily weights * continue fluid restriction (5) Atrial fibrillation: Qualifiers: Atrial fibrillation type: persistent (not longstanding) Qualified Code(s): I48.19 - Other persistent atrial fibrillation Code(s): I48.91 - Unspecified atrial fibrillation Status: Chronic Assessment and Plan: * known history * rate control strategy * on anticoagulation (6) Hyponatremia: Code(s): E87.1 - Hypo-osmolality and hyponatremia Status: Acute Assessment and Plan: * stable if not improving * acute on chronic * sodium has been normal at times but seems to average ~ 130 -136mmol/L in the last few years * suspect acute drop due to volume overload/hypervolemia * on IV diuretics * on fluid restriction * evaluation to date noted: * TSH good * cortisol okay * SPEP without M-spike; UPEP pending * serum/urine osmolality pending * already on salt tabs (prior to admission) (7) Generalized weakness: Code(s): R53.1 - Weakness Status: Acute Assessment and Plan: * presumably due to previous falls, orthopedic injuries, recent hospitalization, and deconditioning * s/p stay at 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 L Subjective Date/time seen: 06/30/25 13:17 Interval history: Follow-up for acute kidney injury/acute renal failure on chronic kidney disease. Renal function/creatinine/sodium continue to improve with current therapy/interventions to date; tolerating diuresis but still with significant swelling/edema in his LE and scrotal area; noted issues with hematuria; no apparent distress noted at the time of my visit. Exam 2 Narrative: General: elderly but WD/WN male in NAD Heart: normal S1 and S2; no rub Lungs: coarse and decreased at bases Abdomen: soft, nontender, nondistended, positive bowel sounds Extremities: no cyanosis or clubbing; 2+ edema Skin: warm and intact Objective Data Vital Signs Vital Signs: Vital Signs Temp Pulse Resp BP Pulse Ox O2 Del Method 06/30/25 12:00 57 L 06/30/25 08:00 51 L 06/30/25 08:00 Room Air 06/30/25 06:00 55 L 06/30/25 05:45 56 L 06/30/25 05:30 52 L 06/30/25 05:15 57 L 06/30/25 05:00 52 L 06/30/25 04:46 53 L 06/30/25 04:31 52 L 06/30/25 04:30 108/52 L 06/30/25 04:29 97.7 F 52 L 16 132/46 L 98 06/30/25 04:08 52 L 06/30/25 04:00 49 L 06/30/25 03:58 49 L 06/30/25 03:39 51 L 06/30/25 03:01 53 L 06/30/25 02:46 51 L 06/30/25 02:36 52 L 06/30/25 02:19 55 L 06/30/25 02:00 54 L 06/30/25 01:45 52 L 06/30/25 01:33 54 L 06/30/25 01:24 52 L 06/30/25 01:00 52 L 06/30/25 00:45 52 L 06/30/25 00:32 54 L 06/30/25 00:19 51 L 06/30/25 00:03 53 L 06/30/25 00:00 54 L 06/29/25 23:31 56 L 06/29/25 22:32 55 L 06/29/25 21:56 55 L 06/29/25 21:33 57 L 06/29/25 21:29 98.7 F 110 H 16 104/51 L 100 06/29/25 21:01 54 L 06/29/25 20:39 53 L 06/29/25 20:15 53 L 06/29/25 20:00 55 L 06/29/25 20:00 Room Air 06/29/25 19:54 54 L 06/29/25 18:39 55 L 06/29/25 18:21 53 L 06/29/25 18:00 55 L 06/29/25 17:40 55 L 06/29/25 17:15 58 L 06/29/25 17:00 57 L 06/29/25 16:45 52 L 06/29/25 16:30 51 L Intake/Output Intake/Output: Intake & Output 06/27/25 06/28/25 06/29/25 06/30/25 23:59 23:59 23:59 23:59 Intake Total 1999 1340 240 608 Output Total 2760 2450 1550 1750 [facility] -760 -1110 -1310 -7172 Meds/Results Medications: Active Medications Generic Name Dose Route Start Last Admin Trade Name Freq PRN Reason Stop Dose Admin Acetaminophen 650 mg 06/26/25 19:39 06/29/25 22:04 Acetaminophen 325 Mg Tablet PO 650 mg Q4H PRN Administration Mild Pain (1-3) or Fever Apixaban 5 mg 06/27/25 02:15 06/30/25 08:32 Apixaban 5 Mg Tablet PO 5 mg Q12HR YUNIOR Administration Dextrose 12.5 gm 06/26/25 21:20 Dextrose 50% 25 Gm/50 Ml Syringe IV PUSH PRN PRN Hypoglycemia Protocol Furosemide 60 mg 06/29/25 17:00 06/30/25 08:32 Furosemide Inj 40 Mg/4 Ml Vial IV PUSH 60 mg BID YUNIOR Administration Glucose 15 gm 06/26/25 21:20 Glucose Oral Gel 15 Gm Of Glucse In 37.5 Gm Tube PO PRN PRN Hypoglycemia Protocol Dextrose 1,000 mls @ 100 mls/hr 06/26/25 21:20 Dextrose 5% 1,000 Ml IVPB PRN PRN Hypoglycemia Protocol Insulin Aspart 2 - 5 units 06/27/25 08:00 06/30/25 12:38 Insulin Aspart (*Bkc) 100 Units/Ml SUB-Q 2 units TIDWM YUNIOR Administration Protocol Insulin Aspart 1 - 2 units 06/27/25 21:00 06/29/25 22:04 Insulin Aspart (*Bkc) 100 Units/Ml SUB-Q Not Given HS YUNIOR Protocol Melatonin 3 mg 06/27/25 02:15 06/29/25 22:03 Melatonin 3 Mg Tablet PO 3 mg HS YUNIOR Administration Pantoprazole Sodium 40 mg 06/27/25 09:00 06/30/25 08:31 Pantoprazole 40 Mg Tablet PO 40 mg QAM YUNIOR Administration Polyethylene Glycol 17 gm 06/29/25 17:00 06/30/25 08:32 Polyethylene Glycol 3350 17 Gm Powd.Pack PO 17 gm BID YUNIOR Administration Polyethylene Glycol 17 gm 06/30/25 17:00 Polyethylene Glycol 3350 17 Gm Powd.Pack PO BID YUNIOR Polysaccharide Iron Complex 150 mg 06/27/25 08:00 06/30/25 08:31 Polysaccharide Iron Complex 150 Mg Capsule PO 150 mg DAILY@0800 YUNIOR Administration Ranolazine 500 mg 06/27/25 02:20 06/30/25 08:31 Ranolazine 500 Mg Tab.Er.12h PO 500 mg Q12HR YUNIOR Administration Senna 8.6 mg 06/29/25 10:02 Sennosides 8.6 Mg Tablet PO BID PRN Constipation Senna 8.6 mg 07/01/25 21:00 Sennosides 8.6 Mg Tablet PO HS [facility] Sodium Chloride 1 gm 06/27/25 02:15 06/30/25 08:31 Sodium Chloride 1 Gm Tablet PO 1 gm BID YUNIOR Administration Tamsulosin HCl 0.4 mg 06/27/25 18:00 06/29/25 17:34 Tamsulosin Hcl 0.4 Mg Capsule PO 0.4 mg QPM YUNIOR Administration Radiology Results: ITS Impressions Chest X-Ray 06/26/25 17:49 Impression: Mild CHF Renal Ultrasound 06/27/25 12:21 IMPRESSION: 1. Normal right kidney and suboptimally visualized but normal-appearing left kidney, both with no hydronephrosis. 2. Small amount of ascites in the pelvis. Abdomen X-Ray 06/28/25 14:47 IMPRESSION: 1. No acute findings. 2. Volume of stool not significantly increased. Labs Labs: Laboratory Tests 06/30/25 07:39 06/30/25 07:39 Glucose 148 H Calcium 8.6 Magnesium 2.3 Microbiology 06/26/25 18:50 Blood Blood Culture - Preliminary 06/26/25 18:50 Blood Blood Culture - Preliminary
[2025-06-30 16:08] LABS: Albumin 3.1 g/dL (2.9-4.4); Alpha-1-Globulin 0.3 g/dL (0.0-0.4); Alpha-2-Globulin 0.5 g/dL (0.4-1.0); Gamma Globulin 1.4 g/dL (0.4-1.8)
--- NOTE | 2025-06-30 16:32 | P.CONUR_ITS ---
Assessment and Plan Assessment and plan (1) AALIYAH (acute kidney injury): Code(s): N17.9 - Acute kidney failure, unspecified Status: Acute (2) UTI (urinary tract infection): Code(s): N39.0 - Urinary tract infection, site not specified Status: Acute (3) BPH loc w urin obs/LUTS: Code(s): N40.1 - Benign prostatic hyperplasia with lower urinary tract symptoms Status: Acute (4) Hematuria: Code(s): R31.9 - Hematuria, unspecified Status: Acute (5) Urinary retention: Code(s): R33.9 - Retention of urine, unspecified Status: Acute Plan 79y old male with gross hematuria in the setting of BPH with urinary retention and eliquis -maintain simmons. Consider voiding trial before discharge. -cr 2.07. Nephro on board. -urine culture was clinically insignificant. -SANIYA show bilateral kidneys normal with no hydro. -continue tamsulosin -trend H/H. currently 7.9/24.5 -WBC low at 3.4 -Patient has 3 way catheter in. If he has maria elena blood in urine then run cbi. Otherwise flush PRN. continue to monitor urine. -could consider outpatient cystoscopy Urology Consult Note HPI Date Seen: 06/30/25 Requesting Physician: Tatum Wheeler MD Primary Care Provider: Randy Borrero MD Consult Narrative Narrative: Lopez Guzman is a 79 year old male with a H CHF with grade 2 diastolic dysfunction, pulmonary hypertension, CAD status post CABG in 2018, paroxysmal atrial fibrillation, first-degree AV block, obesity, left bundle branch block, hyper and hypokalemia, chronic hyponatremia, history of renal cell carcinoma, history of prostate cancer, chronic pancytopenia, chronic debility, CKD stage 3, fracture of left inferior pubic ramus and left acetabulum fracture in 06/2025, 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 Patient was having retention on admit with >600ml in bladder. simmons catheter was placed. Since then has had hematuria in the setting of the above listed status as well as eliquis. Review of Systems 2 Review of Systems: per hpi [facility] Past Medical History Medical History Hypotension Atrial fibrillation Cirrhosis Pulmonary hypertension Tricuspid regurgitation severe Hyponatremia Acute exacerbation of CHF (congestive heart failure) History of renal cell carcinoma History of prostate cancer Skin tear of right lower leg without complication Pre-ulcerative corn or callous Kidney mass Pancreatic mass Nausea & vomiting Anemia Acquired deformity of left thigh Preoperative clearance Foot lesion Cellulitis Elsa tropicalis infection Fall Bronchitis Elevated carbon dioxide level Alkaline phosphatase elevation Prostate cancer screening Body mass index (BMI) of 40.1 to 44.9 in adult Degenerative joint disease of knee Renal malignant neoplasm Prostate CA Intracranial atherosclerosis Eczema Hypertensive urgency Non-STEMI (non-ST elevated myocardial infarction) Most recent non-STEMI 12/11/2018 Obstructive sleep apnea Intolerant to CPAP Prostate cancer Renal cell carcinoma Elevated PSA, between 10 and less than 20 ng/ml Vertigo Morbid (severe) obesity due to excess calories Abnormality of gait CAD (coronary artery disease) Multivessel coronary artery disease with stents to the proximal and distal LAD, mid right coronary artery July 2014 with prior catheterization performed [facility] January 2018 had severe diffuse 3 vessel coronary artery disease with multiple stenoses of about 70% and mid to distal LAD between previously placed proximal and distal stents, 50-70% diffuse stenosis of the circumflex with a proximal stenosis of: To and total occlusion of a the marginal branch and diffuse distal right coronary artery disease with occluded RPDA referred for CABG DM neuropathy with neurologic complication GERD (gastroesophageal reflux disease) Dyslipidemia Hypertension Surgical History Surgical History History of right hip hemiarthroplasty Status post open reduction with internal fixation of fracture Of left leg at age 21 Stented coronary artery Hx of tonsillectomy S/P CABG (coronary artery bypass graft) (04/2018) YESENIA to LAD, vein graft to OM, radial graft to RPDA, RCA was diffusely diseased and not a great target for bypass, LAD was also diffusely diseased Family History Family History Father Family history of heart disease in male family member before age 55 Acute myocardial infarction Hypertension Mother Family history of heart disease in male family member before age 55 Acute myocardial infarction Emphysema of lung Asthma Sibling Family history of heart disease in male family member before age 55 Acute myocardial infarction Hypertension Polycystic kidney disease Sibling Family history of heart disease in male family member before age 55 Acute myocardial infarction Breast cancer Sibling Emphysema of lung Cerebrovascular accident Son Acute myocardial infarction Social History Social History Social History: He is and lives alone. He has an adult son and a daughter. 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 He is a lifelong nonsmoker and does not drink alcohol. Code status: Full code (he would not want to be on long-term life support or have a tracheostomy or PEG tube.) Surrogate decision maker: Adjacent (son) Smoking status: Never smoker Second hand tobacco smoke exposure: Yes Alcohol intake: never Substance use: never Substance use type: does not use Do You Feel Safe in your Home?: Yes Lack of Transportation: No Lack of Food: Never True Current Housing: I Have Housing Concerned About Future Housing: No Difficulty Paying Gas/Electric Bills: YES Difficulty Paying for Meds: YES Currently Unemployed: No Education: Master's Degree or Higher Difficulty w/ Childcare or Family Care: No Living arrangements: alone Occupation/Education: retired Gender identity (if verbalized by the patient): Male Sexual Orientation (if Verbalized by the Patient): Straight or Heterosexual Spiritual care concerns: No Meds Home Medications and Allergies Home Medications ?Medication ?Instructions ?Recorded ?Confirmed ?Type evolocumab 140 mg/mL subcutaneous 140 mg subcut Q2WEEK S 05/07/21 06/26/25 History pen injector (Aman Ryder) polysaccharide iron complex 150 mg 150 mg PO DAILY #90 caps 11/22/24 06/26/25 Rx iron capsule (Poly-Iron) nitroglycerin 0.4 mg sublingual See Rx Instructions .R oute 04/07/25 06/26/25 Rx tablet .COMPLEX #100 tabs melatonin 3 mg tablet 3 mg PO HS #0 tabs 05/06/25 06/26/25 Rx pantoprazole 40 mg tablet,delayed 40 mg PO QAM #30 tab s 05/06/25 06/26/25 Rx release ranolazine 500 mg tablet,extended 500 mg PO Q12H #60 t abs 05/06/25 06/26/25 Rx release,12 hr blood-glucose sensor (FreeStyle #1 ea 06/01/25 5 Rx [place] 3 Sensor device) polyethylene glycol 3350 17 gram 17 g PO QAM PRN const ipation 06/01/25 06/26/25 History oral powder packet (Miralax) insulin glargine 100 unit/mL 25 unit (0.25 mL) subcut Q12HR #10 06/06/25 06/26/25 Rx subcutaneous solution (Lantus mL U-100 Insulin) apixaban 5 mg tablet (Eliquis) 5 mg PO Q12HR #60 tabs 06/19/25 06/26/25 Rx furosemide 20 mg tablet 60 mg (3 x 20 mg) PO BIDWM 1 5 days 06/19/25 06/26/25 Rx #90 tabs tamsulosin 0.4 mg capsule 0.4 mg PO QPM #30 caps 06/1906/26/25 Rx sodium chloride 1,000 mg soluble 1,000 mg PO BID #60 t abs 06/23/25 06/26/25 Rx tablet acetaminophen 500 mg tablet 1,000 mg PO Q6H 06/26/25 0 06/26/25 History (Acetaminophen Extra Strength) carvedilol 12.5 mg tablet 12.5 mg PO Q12H 06/26/25 History insulin aspart U-100 100 unit/mL 1 sliding scale dose subcut TID 06/26/25 06/26/25 History (3 mL) subcutaneous pen (Novolog PRN hyperglycemia FlexPen U-100 Insulin aspart) isosorbide mononitrate 30 mg 30 mg PO QAM 06/26/25 History tablet,extended release 24 hr metolazone 2.5 mg tablet 2.5 mg PO QAM 06/26/2506/26 History spironolactone 25 mg tablet 25 mg PO QAM 06/26/25/10/30 History Allergies Allergy/AdvReac Type Severity Reaction Status Date / Time Penicillins Allergy Severe Anaphylaxis Verified 06/26/25 22:23 adhesive tape Allergy Mild rash Verified 06/26/25 22:23 liraglutide Allergy Unknown Hives / Verified 06/26/25 22:23 Red Face Xzkethy-QQC-LdQ Reductase AdvReac Unknown Muscle Verified 06/26/25 22:23 Inhibitor (Ppmndxj-Qxo-Dns Spasms Reductase Inhibitor) Vital Signs Vital Signs - 24 hr 06/29/25 16:45 06/29/25 17:00 06/29/25 17:15 Temperature Pulse Rate 52 L 57 L 58 L Respiratory Rate Blood Pressure Pulse Oximetry Oxygen Delivery 06/29/25 17:40 06/29/25 18:00 06/29/25 18:21 Temperature Pulse Rate 55 L 55 L 53 L Respiratory Rate Blood Pressure Pulse Oximetry Oxygen Delivery 06/29/25 18:39 06/29/25 19:54 06/29/25 20:00 Temperature Pulse Rate 55 L 54 L Respiratory Rate Blood Pressure Pulse Oximetry Oxygen Delivery Room Air 06/29/25 20:00 06/29/25 20:15 06/29/25 20:39 Temperature Pulse Rate 55 L 53 L 53 L Respiratory Rate Blood Pressure Pulse Oximetry Oxygen Delivery 06/29/25 21:01 06/29/25 21:29 06/29/25 21:33 Temperature 98.7 F Pulse Rate 54 L 110 H 57 L Respiratory Rate 16 Blood Pressure 104/51 L Pulse Oximetry 100 Oxygen Delivery 06/29/25 21:56 06/29/25 22:32 06/29/25 23:31 Temperature Pulse Rate 55 L 55 L 56 L Respiratory Rate Blood Pressure Pulse Oximetry Oxygen Delivery 06/30/25 00:00 06/30/25 00:03 06/30/25 00:19 Temperature Pulse Rate 54 L 53 L 51 L Respiratory Rate Blood Pressure Pulse Oximetry Oxygen Delivery 06/30/25 00:32 06/30/25 00:45 06/30/25 01:00 Temperature Pulse Rate 54 L 52 L 52 L Respiratory Rate Blood Pressure Pulse Oximetry Oxygen Delivery 06/30/25 01:24 06/30/25 01:33 06/30/25 01:45 Temperature Pulse Rate 52 L 54 L 52 L Respiratory Rate Blood Pressure Pulse Oximetry Oxygen Delivery 06/30/25 02:00 06/30/25 02:19 06/30/25 02:36 Temperature Pulse Rate 54 L 55 L 52 L Respiratory Rate Blood Pressure Pulse Oximetry Oxygen Delivery 06/30/25 02:46 06/30/25 03:01 06/30/25 03:39 Temperature Pulse Rate 51 L 53 L 51 L Respiratory Rate Blood Pressure Pulse Oximetry Oxygen Delivery 06/30/25 03:58 06/30/25 04:00 06/30/25 04:08 Temperature Pulse Rate 49 L 49 L 52 L Respiratory Rate Blood Pressure Pulse Oximetry Oxygen Delivery 06/30/25 04:29 06/30/25 04:30 06/30/25 04:31 Temperature 97.7 F Pulse Rate 52 L 52 L Respiratory Rate 16 Blood Pressure 132/46 L 108/52 L Pulse Oximetry 98 Oxygen Delivery 06/30/25 04:46 06/30/25 05:00 06/30/25 05:15 Temperature Pulse Rate 53 L 52 L 57 L Respiratory Rate Blood Pressure Pulse Oximetry Oxygen Delivery 06/30/25 05:30 06/30/25 05:45 06/30/25 06:00 Temperature Pulse Rate 52 L 56 L 55 L Respiratory Rate Blood Pressure Pulse Oximetry Oxygen Delivery 06/30/25 08:00 06/30/25 08:00 06/30/25 12:00 Temperature Pulse Rate 51 L 57 L Respiratory Rate Blood Pressure Pulse Oximetry Oxygen Delivery Room Air Exam 2 Const: General: comfortable and no acute distress Eyes: General: appearance normal, both eyes and all related structures Resp: Effort & Inspection: normal respiratory effort Urinary Catheter: Urinary Catheter: patent and draining, urine clear and urine pink Skin: General skin exam: normal color Results Labs 06/30/25 07:39 06/30/25 07:39 Labs: Short CBC 06/30/25 Range/Units 07:39 WBC 3.4 L (4.5-10.0) K/mm3 Hgb 7.9 L (14.0-18.0) g/dL Hct 24.5 L (42.0-52.0) % Plt Count 107 L (150-375) k/mm3 BMP 06/30/25 07:39 Sodium 130 L Potassium 3.9 Chloride 95 L Carbon Dioxide 29 BUN 93 H Creatinine 2.07 H Glucose 148 H Calcium 8.6
[2025-06-30] MEDS: FUROSEMIDE INJ 40 MG/4 ML VIAL 80 MG IV PUSH (17:07)
[2025-06-30] MEDS: TAMSULOSIN HCL 0.4 MG CAPSULE PO (17:07)
[2025-06-30] MEDS: WATER FOR IRRIGATION, STERILE 500 ML BOTTLE IRRIGATION (18:45)
[2025-06-30] MEDS: MELATONIN 3 MG TABLET PO (21:58)
[2025-07-01] VITALS (12 sets, daily range): BP systolic 110–123; BP diastolic 44–60; PULSE 58–70; RESP 18–20; TEMP 36.2–36.8; O2SAT 100
[2025-07-01] MEDS: ACETAMINOPHEN 325 MG TABLET 650 MG PO ×3 (02:44→18:17)
--- NOTE | 2025-07-01 06:10 | WPDUROPN2 ---
Progress Note: A&P Assessment and Plan (1) Hematuria: Code(s): R31.9 - Hematuria, unspecified Status: Acute Assessment and Plan: Transient hematuria likely due to catheter irritation and anticoagulation Urine has been clear since yesterday afternoon. Valenzuela catheter can be removed any time, when not otherwise needed Subjective Subjective Date/Time Seen: 07/01/25 06:10 Interval history: Comfortable, tolerating catheter and urine clear overnight Review of Systems Cardiovascular: Cardiovascular: Denies chest pain, Denies lightheadedness, Denies palpitations and Denies dyspnea Respiratory: Respiratory: Denies dyspnea Gastrointestinal: Gastrointestinal: Denies diarrhea, Denies nausea and Denies vomiting Genitourinary: Genitourinary: Denies hematuria and Denies dysuria Endocrine: Endocrine: Denies palpitations Objective Data Vital Signs Vital Signs: Vital Signs - 24 hr 06/30/25 08:00 06/30/25 08:00 06/30/25 12:00 Temperature Pulse Rate 51 L 57 L Respiratory Rate Blood Pressure Pulse Oximetry Oxygen Delivery Room Air 06/30/25 14:00 06/30/25 16:00 06/30/25 20:00 Temperature 97.4 F L Pulse Rate 55 L 555 H Respiratory Rate 18 Blood Pressure 114/46 L Pulse Oximetry 100 Oxygen Delivery Room Air 06/30/25 20:00 06/30/25 21:50 06/30/25 22:00 Temperature 98.4 F Pulse Rate 59 L 58 L Respiratory Rate 20 Blood Pressure 121/50 L Pulse Oximetry 99 99 Oxygen Delivery Room Air 07/01/25 00:00 07/01/25 04:00 Temperature Pulse Rate 58 L 61 Respiratory Rate Blood Pressure Pulse Oximetry Oxygen Delivery Intake/Output Intake/Output: Intake & Output 06/28/25 06/29/25 06/30/25 07/01/25 23:59 23:59 23:59 23:59 Intake Total 0102 410 4153 Output Total 2454 6270 6010 [facility] -7031 -0255 -6514 Meds/Results Medications: Active Medications Generic Name Dose Route Start Last Admin Trade Name Freq PRN Reason Stop Dose Admin Acetaminophen 650 mg 06/26/25 19:39 07/01/25 02:44 Acetaminophen 325 Mg Tablet PO 650 mg Q4H PRN Administration Mild Pain (1-3) or Fever Apixaban 5 mg 06/27/25 02:15 06/30/25 22:02 Apixaban 5 Mg Tablet PO 5 mg Q12HR YUNIOR Administration Dextrose 12.5 gm 06/26/25 21:20 Dextrose 50% 25 Gm/50 Ml Syringe IV PUSH PRN PRN Hypoglycemia Protocol Furosemide 80 mg 06/30/25 17:00 06/30/25 17:07 Furosemide Inj 40 Mg/4 Ml Vial IV PUSH 80 mg BID YUNIOR Administration Glucose 15 gm 06/26/25 21:20 Glucose Oral Gel 15 Gm Of Glucse In 37.5 Gm Tube PO PRN PRN Hypoglycemia Protocol Dextrose 1,000 mls @ 100 mls/hr 06/26/25 21:20 Dextrose 5% 1,000 Ml IVPB PRN PRN Hypoglycemia Protocol Insulin Aspart 2 - 5 units 06/27/25 08:00 06/30/25 17:15 Insulin Aspart (*Bkc) 100 Units/Ml SUB-Q 2 units TIDWM YUNIOR Administration Protocol Insulin Aspart 1 - 2 units 06/27/25 21:00 06/30/25 22:03 Insulin Aspart (*Bkc) 100 Units/Ml SUB-Q Not Given HS YUNIOR Protocol Melatonin 3 mg 06/27/25 02:15 06/30/25 21:58 Melatonin 3 Mg Tablet PO 3 mg HS YUNIOR Administration Pantoprazole Sodium 40 mg 06/27/25 09:00 06/30/25 08:31 Pantoprazole 40 Mg Tablet PO 40 mg QAM YUNIOR Administration Polyethylene Glycol 17 gm 06/29/25 17:00 06/30/25 17:07 Polyethylene Glycol 3350 17 Gm Powd.Pack PO 17 gm BID YUNIOR Administration Polysaccharide Iron Complex 150 mg 06/27/25 08:00 06/30/25 08:31 Polysaccharide Iron Complex 150 Mg Capsule PO 150 mg DAILY@0800 YUNIOR Administration Ranolazine 500 mg 06/27/25 02:20 06/30/25 21:58 Ranolazine 500 Mg Tab.Er.12h PO 500 mg Q12HR YUNIOR Administration Senna 8.6 mg 06/29/25 10:02 Sennosides 8.6 Mg Tablet PO BID PRN Constipation Senna 8.6 mg 07/01/25 21:00 Sennosides 8.6 Mg Tablet PO HS YUNIOR Sodium Chloride 1 gm 06/27/25 02:15 06/30/25 17:07 Sodium Chloride 1 Gm Tablet PO 1 gm BID YUNIOR Administration Tamsulosin HCl 0.4 mg 06/27/25 18:00 06/30/25 17:07 Tamsulosin Hcl 0.4 Mg Capsule PO 0.4 mg QPM YUNIOR Administration Radiology Results: ITS Impressions Chest X-Ray 06/26/25 17:49 Impression: Mild CHF Renal Ultrasound 06/27/25 12:21 IMPRESSION: 1. Normal right kidney and suboptimally visualized but normal-appearing left kidney, both with no hydronephrosis. 2. Small amount of ascites in the pelvis. Abdomen X-Ray 06/28/25 14:47 IMPRESSION: 1. No acute findings. 2. Volume of stool not significantly increased. Labs Labs: Laboratory Results - last 24 hr 06/29/25 06/30/25 06/30/25 06:35 07:38 07:39 WBC 3.4 L RBC 2.45 L Hgb 7.9 L Hct 24.5 L MCV 100.0 MCH 32.2 MCHC 32.2 RDW 15.7 H Plt Count 107 L MPV 9.6 Immature Gran % (Auto) 0.3 Neut % (Auto) 73.1 Lymph % (Auto) 10.3 L [place] % (Auto) 13.3 H Eos % (Auto) 2.7 Baso % (Auto) 0.3 Lymph # (Auto) 0.35 L [place] # (Auto) 0.5 Eos # (Auto) 0.1 Baso # (Auto) 0.0 Abs Immat Gran (auto) 0.01 Absolute Neuts (auto) 2.5 Absolute Nucleated RBC 0.000 Nucleated RBC % 0.0 Sodium 130 L Potassium 3.9 Chloride 95 L Carbon Dioxide 29 Anion Gap 6 BUN 93 H Creatinine 2.07 H Estim Creat Clear Calc 39 Estimated GFR 31 L Glucose 148 H POC Capillary Glucose 155 H Calcium 8.6 Magnesium 2.3 Total Protein (PEP) 6.2 Albumin (PEP) 3.1 Globulin (PEP) 3.1 Albumin/Globulin Ratio 1.0 Zkshp-3-Dzkpkmefd 0.3 Aggsc-7-Plttvwryf 0.5 Beta Globulins 1.0 Gamma Globulins 1.4 PEP Comment Comment Pr Electrophoresis MSpike Not observed 06/30/25 06/30/25 06/30/25 11:31 17:13 21:51 WBC RBC Hgb Hct MCV MCH MCHC RDW Plt Count MPV Immature Gran % (Auto) Neut % (Auto) Lymph % (Auto) [place] % (Auto) Eos % (Auto) Baso % (Auto) Lymph # (Auto) [place] # (Auto) Eos # (Auto) Baso # (Auto) Abs Immat Gran (auto) Absolute Neuts (auto) Absolute Nucleated RBC Nucleated RBC % Sodium Potassium Chloride Carbon Dioxide Anion Gap BUN Creatinine Estim Creat Clear Calc Estimated GFR Glucose POC Capillary Glucose 204 H 219 H 186 H Calcium Magnesium Total Protein (PEP) Albumin (PEP) Globulin (PEP) Albumin/Globulin Ratio Gkhis-5-Zkqlqvxcn Jhbtm-9-Hiuzqnsgs Beta Globulins Gamma Globulins PEP Comment Pr Electrophoresis MSpike
[2025-07-01 07:12] LABS: Hematocrit 24.9 % (42.0-52.0); Hemoglobin 8.1 g/dL (14.0-18.0); Immature Granulocyte Percent A 0.3 % (0-0.5); Lymphocytes Absolute Auto 0.28 K/mm3 (0.9-3.2); Mean Corpuscular HGB Conc 32.5 g/dl (32-36); Mean Corpuscular Hemoglobin 32.5 pg (26-34); Mean Corpuscular Volume 100.0 fl (80-100); Nucleated Red Blood Cells Absolute Auto 0.000 K/mm3 (0.0-0.012); Nucleated Red Blood Cells Perc 0.0 % (0.0-0.2); Platelet Count Result 107 k/mm3 (150-375); Red Blood Count 2.49 M/mm3 (4.6-6.20); White Blood Count 2.9 K/mm3 (4.5-10.0)
[2025-07-01 07:37] LABS: Albumin Level 3.1 g/dL (3.5-5.1); Anion Gap 5 mmol/L (4-12); Blood Urea Nitrogen 90 mg/dL (9-20); Calcium 8.7 mg/dL (8.4-10.2); Carbon Dioxide 32 mmol/L (22-30); Chloride 96 mmol/L (98-107); Estimated CRCL calculation 45 ml/min; Estimated Glomerular Filt Rate 38; Glucose 192 mg/dL (65-110); Potassium 4.1 mmol/L (3.4-5.0); Sodium 133 mmol/L (137-145)
[2025-07-01] MEDS: RANOLAZINE 500 MG TAB.ER.12H PO ×2 (08:13→21:36)
[2025-07-01] MEDS: SODIUM CHLORIDE 1 GM TABLET PO ×2 (08:14→17:56)
[2025-07-01] MEDS: APIXABAN 5 MG TABLET PO (08:14)
[2025-07-01] MEDS: PANTOPRAZOLE 40 MG TABLET PO (08:14)
--- NOTE | 2025-07-01 09:57 | P.PNNP_ITS ---
Progress Note: A&P Assessment and Plan (1) Acute kidney injury: Code(s): N17.9 - Acute kidney failure, unspecified Status: Acute Assessment and Plan: * improving * as noted on admission - creatinine of 2.96mg/dL * etiology not clear -- suspect: * CHF exacerbation * variation of cardio-renal syndrome (diminished ECF) * renal venous hypertension * element of intravascular volume depletion (despite clear evidence of overload) * relative anemia * relative hypotension * other(?) * evaluation noted to date * renal u/s without obstruction * urine electrolytes prerenal (by FeUrea) * urine eosinophils 0.01 * moderate proteinuria * CPK low * improvement noted with diuresis: * evidence of nephrosarca (?) * possible component of renal venous hypertension (?) * follow trend of repeat labs and UOP (2) Stage 3 chronic kidney disease: Code(s): N18.30 - Chronic kidney disease, stage 3 unspecified Status: Chronic Assessment and Plan: * baseline creatinine runs around 1.2 - 1.6mg/dl for the last few years * this causes this to fluctuate between CKD stage 3A and 3B * presumably due to diabetes, hypertension, vascular disease (CAD + CHF + hyperlipidemia), MARIANNA, obesity, and age-related disease (3) Acute exacerbation of CHF (congestive heart failure): Qualifiers: Heart failure type: diastolic Qualified Code(s): I50.33 - Acute on chronic diastolic (congestive) heart failure Code(s): I50.9 - Heart failure, unspecified Status: Acute Assessment and Plan: * based on evidence to date: * significant LE edema/swelling * bibasilar crackles on respiratory exam * CXR with mild CHF * elevated proBNP * recent Echo (on 04/15/25) noted: * left ventricular systolic function is normal, estimated at 55 - 60% * left ventricular diastolic function is grade II diastolic * moderate aortic valve calcification * mild aortic valve stenosis * mild mitral valve regurgitation * 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 * monitor I/Os (4) Anasarca: Code(s): R60.1 - Generalized edema Status: Acute Assessment and Plan: * significant lower extremity edema noted * suspect due to pulmonary HTN and TR as noted by last Echo * on IV diuretic therapy * transition to oral diuretics soon (?) * follow I/Os and daily weights * continue fluid restriction (5) Atrial fibrillation: Qualifiers: Atrial fibrillation type: persistent (not longstanding) Qualified Code(s): I48.19 - Other persistent atrial fibrillation Code(s): I48.91 - Unspecified atrial fibrillation Status: Chronic Assessment and Plan: * known history * rate control strategy * on anticoagulation (6) Hyponatremia: Code(s): E87.1 - Hypo-osmolality and hyponatremia Status: Acute Assessment and Plan: * stable if not improving * acute on chronic * sodium has been normal at times but seems to average ~ 130 -136mmol/L in the last few years * suspect acute drop due to volume overload/hypervolemia * on diuretics * on fluid restriction * evaluation to date noted: * TSH good * cortisol okay * SPEP without M-spike (immunofixation negative as well) * UPEP with M-spike but urine immunofixation reports presence of monoclonal protein is unclear at this time * serum/urine osmolality pending * already on salt tabs (prior to admission) (7) Generalized weakness: Code(s): R53.1 - Weakness Status: Acute Assessment and Plan: * presumably due to previous falls, orthopedic injuries, recent hospitalization, and deconditioning * s/p stay at [facility] with discharge on 06/20 * PT/OT as tolerated * need placement again(?) * was just recently discharged from [facility] (on 06/20) (8) Diabetes mellitus with neuropathy: Qualifiers: Diabetes mellitus fdc insulin use: with fdc use Diabetes mellitus type: type 2 Qualified Code(s): E11.40 - Type 2 diabetes mellitus with diabetic neuropathy, unspecified; 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 L Subjective Date/time seen: 07/01/25 09:57 Interval history: Follow-up for acute kidney injury/acute renal failure on chronic kidney disease. Continues to make good urine output in response to IV diuretic therapy with improvement noted in renal function/creatinine; hematuria appears to be doing a bit better as well; no apparent distress noted at the time of my visit. Exam 2 Narrative: General: elderly but WD/WN male in NAD Heart: normal S1 and S2; no rub Lungs: coarse and decreased at bases Abdomen: soft, nontender, nondistended, positive bowel sounds Extremities: no cyanosis or clubbing; 2+ edema Skin: no rash Objective Data Vital Signs Vital Signs: Vital Signs Temp Pulse Resp BP Pulse Ox O2 Del Method 07/01/25 09:00 Room Air 07/01/25 08:27 58 L 112/50 L 07/01/25 08:00 63 07/01/25 06:00 97.2 F L 61 20 111/45 L 100 07/01/25 04:00 61 07/01/25 00:00 58 L 06/30/25 22:00 98.4 F 58 L 20 121/50 L 99 06/30/25 21:50 99 Room Air 06/30/25 20:00 59 L 06/30/25 20:00 Room Air 06/30/25 16:00 555 H Intake/Output Intake/Output: Intake & Output 06/28/25 06/29/25 06/30/25 07/01/25 23:59 23:59 23:59 23:59 Intake Total 4227 294 9658 290 Output Total 2450 1550 3520 Balance -7184 -8224 -2229 290 Meds/Results Medications: Active Medications Generic Name Dose Route Start Last Admin Trade Name Freq PRN Reason Stop Dose Admin Acetaminophen 650 mg 06/26/25 19:39 07/01/25 11:38 Acetaminophen 325 Mg Tablet PO 650 mg Q4H PRN Administration Mild Pain (1-3) or Fever Apixaban 5 mg 06/27/25 02:15 07/01/25 08:14 Apixaban 5 Mg Tablet PO 5 mg Q12HR YUNIOR Administration Dextrose 12.5 gm 06/26/25 21:20 Dextrose 50% 25 Gm/50 Ml Syringe IV PUSH PRN PRN Hypoglycemia Protocol Furosemide 80 mg 06/30/25 17:00 07/01/25 11:38 Furosemide Inj 40 Mg/4 Ml Vial IV PUSH 80 mg BID YUNIOR Administration Glucose 15 gm 06/26/25 21:20 Glucose Oral Gel 15 Gm Of Glucse In 37.5 Gm Tube PO PRN PRN Hypoglycemia Protocol Dextrose 1,000 mls @ 100 mls/hr 06/26/25 21:20 Dextrose 5% 1,000 Ml IVPB PRN PRN Hypoglycemia Protocol Insulin Aspart 2 - 5 units 06/27/25 08:00 07/01/25 12:27 Insulin Aspart (*Bkc) 100 Units/Ml SUB-Q 2 units TIDWM YUNIOR Administration Protocol Insulin Aspart 1 - 2 units 06/27/25 21:00 06/30/25 22:03 Insulin Aspart (*Bkc) 100 Units/Ml SUB-Q Not Given HS YUNIOR Protocol Melatonin 3 mg 06/27/25 02:15 06/30/25 21:58 Melatonin 3 Mg Tablet PO 3 mg HS YUNIOR Administration Pantoprazole Sodium 40 mg 06/27/25 09:00 07/01/25 08:14 Pantoprazole 40 Mg Tablet PO 40 mg QAM YUNIOR Administration Polyethylene Glycol 17 gm 06/29/25 17:00 07/01/25 08:14 Polyethylene Glycol 3350 17 Gm Powd.Pack PO 17 gm BID YUNIOR Administration Polysaccharide Iron Complex 150 mg 06/27/25 08:00 07/01/25 08:12 Polysaccharide Iron Complex 150 Mg Capsule PO 150 mg DAILY@0800 YUNIOR Administration Ranolazine 500 mg 06/27/25 02:20 07/01/25 08:13 Ranolazine 500 Mg Tab.Er.12h PO 500 mg Q12HR YUNIOR Administration Senna 8.6 mg 06/29/25 10:02 Sennosides 8.6 Mg Tablet PO BID PRN Constipation Senna 8.6 mg 07/01/25 21:00 Sennosides 8.6 Mg Tablet PO HS YUNIOR Sodium Chloride 1 gm 06/27/25 02:15 07/01/25 08:14 Sodium Chloride 1 Gm Tablet PO 1 gm BID YUNIOR Administration Tamsulosin HCl 0.4 mg 06/27/25 18:00 06/30/25 17:07 Tamsulosin Hcl 0.4 Mg Capsule PO 0.4 mg QPM YUNIOR Administration Radiology Results: ITS Impressions Chest X-Ray 06/26/25 17:49 Impression: Mild CHF Renal Ultrasound 06/27/25 12:21 IMPRESSION: 1. Normal right kidney and suboptimally visualized but normal-appearing left kidney, both with no hydronephrosis. 2. Small amount of ascites in the pelvis. Abdomen X-Ray 06/28/25 14:47 IMPRESSION: 1. No acute findings. 2. Volume of stool not significantly increased. Labs Labs: Laboratory Tests 07/01/25 06:59 07/01/25 06:59 Calcium 8.7 Phosphorus 3.2 Albumin 3.1 L Microbiology 06/26/25 18:50 Blood Blood Culture - Preliminary 06/26/25 18:50 Blood Blood Culture - Preliminary
--- NOTE | 2025-07-01 09:57 | PM.PNNEP ---
Progress Note: A&P Assessment and Plan (1) Acute kidney injury: Code(s): N17.9 - Acute kidney failure, unspecified Status: Acute Assessment and Plan: improving as noted on admission - creatinine of 2.96mg/dL etiology not clear -- suspect: CHF exacerbation variation of cardio-renal syndrome (diminished ECF) renal venous hypertension element of intravascular volume depletion (despite clear evidence of overload) relative anemia relative hypotension other(?) evaluation noted to date renal u/s without obstruction urine electrolytes prerenal (by FeUrea) urine eosinophils 0.01 moderate proteinuria CPK low improvement noted with diuresis: evidence of nephrosarca (?) possible component of renal venous hypertension (?) follow trend of repeat labs and UOP (2) Stage 3 chronic kidney disease: Code(s): N18.30 - Chronic kidney disease, stage 3 unspecified Status: Chronic Assessment and Plan: baseline creatinine runs around 1.2 - 1.6mg/dl for the last few years this causes this to fluctuate between CKD stage 3A and 3B presumably due to diabetes, hypertension, vascular disease (CAD + CHF + hyperlipidemia), MARIANNA, obesity, and age-related disease (3) Acute exacerbation of CHF (congestive heart failure): Qualifiers: Heart failure type: diastolic Qualified Code(s): I50.33 - Acute on chronic diastolic (congestive) heart failure Code(s): I50.9 - Heart failure, unspecified Status: Acute Assessment and Plan: based on evidence to date: significant LE edema/swelling bibasilar crackles on respiratory exam CXR with mild CHF elevated proBNP recent Echo (on 04/15/25) noted: left ventricular systolic function is normal, estimated at 55 - 60% left ventricular diastolic function is grade II diastolic moderate aortic valve calcification mild aortic valve stenosis mild mitral valve regurgitation 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 monitor I/Os (4) Anasarca: Code(s): R60.1 - Generalized edema Status: Acute Assessment and Plan: significant lower extremity edema noted suspect due to pulmonary HTN and TR as noted by last Echo on IV diuretic therapy transition to oral diuretics soon (?) follow I/Os and daily weights continue fluid restriction (5) Atrial fibrillation: Qualifiers: Atrial fibrillation type: persistent (not longstanding) Qualified Code(s): I48.19 - Other persistent atrial fibrillation Code(s): I48.91 - Unspecified atrial fibrillation Status: Chronic Assessment and Plan: known history rate control strategy on anticoagulation (6) Hyponatremia: Code(s): E87.1 - Hypo-osmolality and hyponatremia Status: Acute Assessment and Plan: stable if not improving acute on chronic sodium has been normal at times but seems to average ~ 130 -136mmol/L in the last few years suspect acute drop due to volume overload/hypervolemia on diuretics on fluid restriction evaluation to date noted: TSH good cortisol okay SPEP without M-spike (immunofixation negative as well) UPEP with M-spike but urine immunofixation reports presence of monoclonal protein is unclear at this time serum/urine osmolality pending already on salt tabs (prior to admission) (7) Generalized weakness: Code(s): R53.1 - Weakness Status: Acute Assessment and Plan: presumably due to previous falls, orthopedic injuries, recent hospitalization, and deconditioning s/p stay at [facility] with discharge on 06/20 PT/OT as tolerated need placement again(?) was just recently discharged from [facility] (on 06/20) (8) Diabetes mellitus with neuropathy: Qualifiers: Diabetes mellitus longterm insulin use: with longterm use Diabetes mellitus type: type 2 Qualified Code(s): E11.40 - Type 2 diabetes mellitus with diabetic neuropathy, unspecified; 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 Subjective Date/time seen: 07/01/25 09:57 Interval history: Follow-up for acute kidney injury/acute renal failure on chronic kidney disease. Continues to make good urine output in response to IV diuretic therapy with improvement noted in renal function/creatinine; hematuria appears to be doing a bit better as well; no apparent distress noted at the time of my visit. Exam Narrative: General: elderly but WD/WN male in NAD Heart: normal S1 and S2; no rub Lungs: coarse and decreased at bases Abdomen: soft, nontender, nondistended, positive bowel sounds Extremities: no cyanosis or clubbing; 2+ edema Skin: no rash Objective Data Vital Signs Vital Signs: Vital Signs Temp Pulse Resp BP Pulse Ox O2 Del Method 07/01/25 09:00 Room Air 07/01/25 08:27 58 L 112/50 L 07/01/25 08:00 63 07/01/25 06:00 97.2 F L 61 20 111/45 L 100 07/01/25 04:00 61 07/01/25 00:00 58 L 06/30/25 22:00 98.4 F 58 L 20 121/50 L 99 06/30/25 21:50 99 Room Air 06/30/25 20:00 59 L 06/30/25 20:00 Room Air 06/30/25 16:00 555 H Intake/Output Intake/Output: Intake & Output 06/28/25 06/29/25 06/30/25 07/01/25 23:59 23:59 23:59 23:59 Intake Total 3699 553 2059 290 Output Total 2450 1550 3520 Balance -1110 -1310 -2079 290 Meds/Results Medications: Active Medications Generic Name Dose Route Start Last Admin Trade Name Freq PRN Reason Stop Dose Admin Acetaminophen 650 mg 06/26/25 19:39 07/01/25 11:38 Acetaminophen 325 Mg Tablet PO 650 mg Q4H PRN Administration Mild Pain (1-3) or Fever Apixaban 5 mg 06/27/25 02:15 07/01/25 08:14 Apixaban 5 Mg Tablet PO 5 mg Q12HR YUNIOR Administration Dextrose 12.5 gm 06/26/25 21:20 Dextrose 50% 25 Gm/50 Ml Syringe IV PUSH PRN PRN Hypoglycemia Protocol Furosemide 80 mg 06/30/25 17:00 07/01/25 11:38 Furosemide Inj 40 Mg/4 Ml Vial IV PUSH 80 mg BID YUNIOR Administration Glucose 15 gm 06/26/25 21:20 Glucose Oral Gel 15 Gm Of Glucse In 37.5 Gm Tube PO PRN PRN Hypoglycemia Protocol Dextrose 1,000 mls @ 100 mls/hr 06/26/25 21:20 Dextrose 5% 1,000 Ml IVPB PRN PRN Hypoglycemia Protocol Insulin Aspart 2 - 5 units 06/27/25 08:00 07/01/25 12:27 Insulin Aspart (*Bkc) 100 Units/Ml SUB-Q 2 units TIDWM YUNIOR Administration Protocol Insulin Aspart 1 - 2 units 06/27/25 21:00 06/30/25 22:03 Insulin Aspart (*Bkc) 100 Units/Ml SUB-Q Not Given HS [facility] Protocol Melatonin 3 mg 06/27/25 02:15 06/30/25 21:58 Melatonin 3 Mg Tablet PO 3 mg HS YUNIOR Administration Pantoprazole Sodium 40 mg 06/27/25 09:00 07/01/25 08:14 Pantoprazole 40 Mg Tablet PO 40 mg QAM YUNIOR Administration Polyethylene Glycol 17 gm 06/29/25 17:00 07/01/25 08:14 Polyethylene Glycol 3350 17 Gm Powd.Pack PO 17 gm BID YUNIOR Administration Polysaccharide Iron Complex 150 mg 06/27/25 08:00 07/01/25 08:12 Polysaccharide Iron Complex 150 Mg Capsule PO 150 mg DAILY@0800 YUNIOR Administration Ranolazine 500 mg 06/27/25 02:20 07/01/25 08:13 Ranolazine 500 Mg Tab.Er.12h PO 500 mg Q12HR YUNIOR Administration Senna 8.6 mg 06/29/25 10:02 Sennosides 8.6 Mg Tablet PO BID PRN Constipation Senna 8.6 mg 07/01/25 21:00 Sennosides 8.6 Mg Tablet PO HS [facility] Sodium Chloride 1 gm 06/27/25 02:15 07/01/25 08:14 Sodium Chloride 1 Gm Tablet PO 1 gm BID YUNIOR Administration Tamsulosin HCl 0.4 mg 06/27/25 18:00 06/30/25 17:07 Tamsulosin Hcl 0.4 Mg Capsule PO 0.4 mg QPM YUNIOR Administration Radiology Results: ITS Impressions Chest X-Ray 06/26/25 17:49 Impression: Mild CHF Renal Ultrasound 06/27/25 12:21 IMPRESSION: 1. Normal right kidney and suboptimally visualized but normal-appearing left kidney, both with no hydronephrosis. 2. Small amount of ascites in the pelvis. Abdomen X-Ray 06/28/25 14:47 IMPRESSION: 1. No acute findings. 2. Volume of stool not significantly increased. Labs Labs: Laboratory Tests 07/01/25 06:59 07/01/25 06:59 Calcium 8.7 Phosphorus 3.2 Albumin 3.1 L Microbiology 06/26/25 18:50 Blood Blood Culture - Preliminary 06/26/25 18:50 Blood Blood Culture - Preliminary
--- NOTE | 2025-07-01 11:28 | PCNFU ---
Nutrition Follow-Up Complete: Increased protein energy needs related to wound healing as evidenced by stage 2 pressure injury to coccyx Goal:PO intake >75% to support wound healing Pt meeting goal, continue with same goal Pt current nutrition is Heart healthy, GAIL BID. Nutrition recommendation: continue with current plan of care Last recorded weight is 138.1 kg. Bowel Motility: +BM 06/30 Labs Reviewed: Hgb:8.1, HCt:24.9, Na:133, GFR:38, BUN:90, Cr:1.7, Glu:192 Meds Noted: novolog, eliquis, miralax, senna, lasix Skin: Stage II coccyx Additional Notes: Pt continues on a heart healthy diet with 100% intake of meals. GAIL BID in place for wound healing. Agree with orders, continue with current plan of care. Monitoring intakes, weights, labs, supplement intake, skin, plan of care Follow up in 7 days
[2025-07-01] MEDS: FUROSEMIDE INJ 40 MG/4 ML VIAL 80 MG IV PUSH ×2 (11:38→17:56)
[2025-07-01] MEDS: INSULIN ASPART (*BKC) 100 UNITS/ML SUB-Q ×3 (12:27→21:36)
[2025-07-01 14:08] LABS: Immunoglobulin A, Qn 444 mg/dL (61-437); Immunoglobulin G, Qn 1566 mg/dL (603-1613); Immunoglobulin M, Qn 31 mg/dL (15-143)
[2025-07-01 15:09] LABS: Albumin, U 46.2 % (.); Alpha-1-Globulin, U 3.5 % (.); Alpha-2-Globulin, U 8.9 % (.); Beta Globulin, U 16.0 % (.); Gamma Globulin, U 25.5 % (.)
[2025-07-01 15:09] LABS: Immunofixation (IFE), Urine Comment: (.)
--- NOTE | 2025-07-01 15:18 | PM.IMPN ---
Progress Note: A&P Assessment and Plan (1) Hypertension: Qualifiers: Hypertension type: essential hypertension Qualified Code(s): I10 - Essential (primary) hypertension Code(s): I10 - Essential (primary) hypertension Status: Chronic (2) Acute exacerbation of CHF (congestive heart failure): Qualifiers: Heart failure type: diastolic Qualified Code(s): I50.33 - Acute on chronic diastolic (congestive) heart failure Code(s): I50.9 - Heart failure, unspecified Status: Acute (3) Atrial fibrillation: Qualifiers: Atrial fibrillation type: persistent (not longstanding) Qualified Code(s): I48.19 - Other persistent atrial fibrillation Code(s): I48.91 - Unspecified atrial fibrillation Status: Chronic (4) Hyponatremia: Code(s): E87.1 - Hypo-osmolality and hyponatremia Status: Acute (5) Morbid (severe) obesity due to excess calories: Code(s): E66.01 - Morbid (severe) obesity due to excess calories Status: Acute (6) AALIYAH (acute kidney injury): Code(s): N17.9 - Acute kidney failure, unspecified Status: Acute (7) Stage 3 chronic kidney disease: Code(s): N18.30 - Chronic kidney disease, stage 3 unspecified Status: Chronic (8) Acute hyperkalemia: Code(s): E87.5 - Hyperkalemia Status: Acute Plan 79-year-old male with a PMH CHF with grade 2 diastolic dysfunction, pulmonary hypertension, CAD status post CABG in 2018, paroxysmal atrial fibrillation, first-degree AV block, obesity, left bundle branch block, hyper and hypokalemia, chronic hyponatremia, history of renal cell carcinoma, history of prostate cancer, chronic pancytopenia, chronic debility, CKD stage 3, fracture of left inferior pubic ramus and left acetabulum fracture in 06/2025, 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 Acute SOB: Acute chf/volume overload Currently on room air Continue with IV Lasix 80 BID fluid restriction Strict I&O's Daily weight Compression stocking Aaliyah I on pre-existing CKD stage 3: Renal ultrasound unremarkable Potassium levels better Follow kidney function, improving History of chronic hyponatremia continue salt tablets Renal consult Hematuria Urology consulted, appreciate recommendations Clots in catheter this AM, irrigated. Urine still red, likely clearing up Could be due to irritation. Doesn't remember pulling it but can't tolerate taping due to tape allergy. Trying a tegaderm Hold eliquis Repeat CBC, type & screen History of atrial fibrillation with slow ventricular response: Continue with tele monitoring No beta-blockers Hold Eliquis for hematuria History of diabetes mellitus: Blood glucose checked t.i.d. a.c. and HS Continue with sliding scale insulin Recent hemoglobin 6.1 Constipation: 06/28 KUB no acute findings Code status: Full DVT prophylaxis: Eliquis P.T./OT Disposition: Pending improvement Time Spent With Patient Time: 58 minutes Subjective Date/time seen: 07/01/25 15:18 Interval history: Catheter clotted this morning. Irrigated and hematuria light right, seems improved from dark red urine in the bag. Holding eliquis Swelling improving slowly Otherwise feeling ok. No pain. Repeating CBC this afternoon Review of Systems Review of Systems: All systems reviewed & are unremarkable except as noted in HPI and below Exam Narrative: General appearance: Well-developed Skin: 4+ edema bilaterally, compression stocking on Head: Normocephalic, nontraumatic Eyes: Clear conjunctiva ENT: Dry oral cavity and lips Neck: Supple, nontender Chest and respiratory: Airway patent, no respiratory distress,basilar rales bilaterally Heart: Bradycardia Abdomen: Soft, nontender, no organomegaly, quiet bowel sounds Vascular: Normal peripheral pulses, normal capillary refill. Musculoskeletal: Normal range of motion, nontender back Neurologic: Alert and oriented ?3, [employer] is normal as tested, no gross motor deficit Scrotal edema and LE edema. Valenzuela with red urine Valenzuela catheter Objective Data Vital Signs Vital Signs: Vital Signs - 24 hr 06/30/25 16:00 06/30/25 20:00 06/30/25 20:00 Temperature Pulse Rate 555 H 59 L Respiratory Rate Blood Pressure Pulse Oximetry Oxygen Delivery Room Air 06/30/25 21:50 06/30/25 22:00 07/01/25 00:00 Temperature 98.4 F Pulse Rate 58 L 58 L Respiratory Rate 20 Blood Pressure 121/50 L Pulse Oximetry 99 99 Oxygen Delivery Room Air 07/01/25 04:00 07/01/25 06:00 07/01/25 08:00 Temperature 97.2 F L Pulse Rate 61 61 63 Respiratory Rate 20 Blood Pressure 111/45 L Pulse Oximetry 100 Oxygen Delivery 07/01/25 08:27 07/01/25 09:00 07/01/25 12:00 Temperature Pulse Rate 58 L 70 Respiratory Rate Blood Pressure 112/50 L Pulse Oximetry Oxygen Delivery Room Air 07/01/25 12:11 Temperature Pulse Rate Respiratory Rate Blood Pressure 118/60 Pulse Oximetry Oxygen Delivery Intake/Output Intake/Output: Intake & Output 06/28/25 06/29/25 06/30/25 07/01/25 23:59 23:59 23:59 23:59 Intake Total 5503 903 3319 290 Output Total 2450 4850 3720 [id number] -[id number] -4816 290 Meds/Results Medications: Active Medications Generic Name Dose Route Start Last Admin Trade Name Freq PRN Reason Stop Dose Admin Acetaminophen 650 mg 06/26/25 19:39 07/01/25 11:38 Acetaminophen 325 Mg Tablet PO 650 mg Q4H PRN Administration Mild Pain (1-3) or Fever Apixaban 5 mg 06/27/25 02:15 07/01/25 08:14 Apixaban 5 Mg Tablet PO 5 mg On Hold: 07/01/25 15:16 Q12HR YUNIOR Administration Dextrose 12.5 gm 06/26/25 21:20 Dextrose 50% 25 Gm/50 Ml Syringe IV PUSH PRN PRN Hypoglycemia Protocol Furosemide 80 mg 06/30/25 17:00 07/01/25 11:38 Furosemide Inj 40 Mg/4 Ml Vial IV PUSH 80 mg BID YUNIOR Administration Glucose 15 gm 06/26/25 21:20 Glucose Oral Gel 15 Gm Of Glucse In 37.5 Gm Tube PO PRN PRN Hypoglycemia Protocol Dextrose 1,000 mls @ 100 mls/hr 06/26/25 21:20 Dextrose 5% 1,000 Ml IVPB PRN PRN Hypoglycemia Protocol Insulin Aspart 2 - 5 units 06/27/25 08:00 07/01/25 12:27 Insulin Aspart (*Bkc) 100 Units/Ml SUB-Q 2 units TIDWM YUNIOR Administration Protocol Insulin Aspart 1 - 2 units 06/27/25 21:00 06/30/25 22:03 Insulin Aspart (*Bkc) 100 Units/Ml SUB-Q Not Given HS YUNIOR Protocol Melatonin 3 mg 06/27/25 02:15 06/30/25 21:58 Melatonin 3 Mg Tablet PO 3 mg HS YUNIOR Administration Pantoprazole Sodium 40 mg 06/27/25 09:00 07/01/25 08:14 Pantoprazole 40 Mg Tablet PO 40 mg QAM YUNIOR Administration Polyethylene Glycol 17 gm 06/29/25 17:00 07/01/25 08:14 Polyethylene Glycol 3350 17 Gm Powd.Pack PO 17 gm BID YUNIOR Administration Polysaccharide Iron Complex 150 mg 06/27/25 08:00 07/01/25 08:12 Polysaccharide Iron Complex 150 Mg Capsule PO 150 mg DAILY@0800 YUNIOR Administration Ranolazine 500 mg 06/27/25 02:20 07/01/25 08:13 Ranolazine 500 Mg Tab.Er.12h PO 500 mg Q12HR YUNIOR Administration Senna 8.6 mg 06/29/25 10:02 Sennosides 8.6 Mg Tablet PO BID PRN Constipation Senna 8.6 mg 07/01/25 21:00 Sennosides 8.6 Mg Tablet PO HS YUNIOR Sodium Chloride 1 gm 06/27/25 02:15 07/01/25 08:14 Sodium Chloride 1 Gm Tablet PO 1 gm BID YUNIOR Administration Tamsulosin HCl 0.4 mg 06/27/25 18:00 06/30/25 17:07 Tamsulosin Hcl 0.4 Mg Capsule PO 0.4 mg QPM YUNIOR Administration Radiology Results: ITS Impressions Chest X-Ray 06/26/25 17:49 Impression: Mild CHF Renal Ultrasound 06/27/25 12:21 IMPRESSION: 1. Normal right kidney and suboptimally visualized but normal-appearing left kidney, both with no hydronephrosis. 2. Small amount of ascites in the pelvis. Abdomen X-Ray 06/28/25 14:47 IMPRESSION: 1. No acute findings. 2. Volume of stool not significantly increased. Labs Labs: Laboratory Results - last 24 hr 06/28/25 06/29/25 06/29/25 14:45 06:35 15:04 WBC RBC Hgb Hct MCV MCH MCHC RDW Plt Count MPV Immature Gran % (Auto) Neut % (Auto) Lymph % (Auto) [place] % (Auto) Eos % (Auto) Baso % (Auto) Lymph # (Auto) [place] # (Auto) Eos # (Auto) Baso # (Auto) Abs Immat Gran (auto) Absolute Neuts (auto) Absolute Nucleated RBC Nucleated RBC % Sodium Potassium Chloride Carbon Dioxide Anion Gap BUN Creatinine Estim Creat Clear Calc Estimated GFR Glucose POC Capillary Glucose Calcium Phosphorus Total Protein (PEP) 6.2 Albumin Albumin (PEP) 3.1 Globulin (PEP) 3.1 Albumin/Globulin Ratio 1.0 Cezef-3-Llebczavh 0.3 Tdkuw-6-Lmcuqlyjk 0.5 Beta Globulins 1.0 Gamma Globulins 1.4 PEP Comment Comment Urine Total Protein 49.8 Urine Albumin (PEP) 46.2 U Rkjps-4-Lcbofdbg 3.5 U Xxzjn-7-Tgkmxfdm 8.9 U Beta Globulin 16.0 U Gamma Globulin 25.5 U Random M-Chris (%) 6.6 H Urine PEP Note Comment IgG 1566 IgA 444 H IgM 31 Pr Electrophoresis MSpike Not observed KOBE Interpretation Comment Urine Immunofixation Comment: 06/30/25 06/30/25 07/01/25 17:13 21:51 06:59 WBC 2.9 L RBC 2.49 L Hgb 8.1 L Hct 24.9 L MCV 100.0 MCH 32.5 MCHC 32.5 RDW 15.5 H Plt Count 107 L MPV 9.9 Immature Gran % (Auto) 0.3 Neut % (Auto) 74.3 H Lymph % (Auto) 9.6 L [place] % (Auto) 12.7 H Eos % (Auto) 2.4 Baso % (Auto) 0.7 Lymph # (Auto) 0.28 L [place] # (Auto) 0.4 Eos # (Auto) 0.1 Baso # (Auto) 0.0 Abs Immat Gran (auto) 0.01 Absolute Neuts (auto) 2.2 Absolute Nucleated RBC 0.000 Nucleated RBC % 0.0 Sodium 133 L Potassium 4.1 Chloride 96 L Carbon Dioxide 32 H Anion Gap 5 BUN 90 H Creatinine 1.75 H Estim Creat Clear Calc 45 Estimated GFR 38 L Glucose 192 H POC Capillary Glucose 219 H 186 H Calcium 8.7 Phosphorus 3.2 Total Protein (PEP) Albumin 3.1 L Albumin (PEP) Globulin (PEP) Albumin/Globulin Ratio Cjepv-1-Dwzqhxrak Rfjwx-8-Hceiahpph Beta Globulins Gamma Globulins PEP Comment Urine Total Protein Urine Albumin (PEP) U Hcdeh-7-Mydgnghe U Fswfr-6-Ndozfdfy U Beta Globulin U Gamma Globulin U Random M-Chris (%) Urine PEP Note IgG IgA IgM Pr Electrophoresis MSpike KOBE Interpretation Urine Immunofixation 07/01/25 12:24 WBC RBC Hgb Hct MCV MCH MCHC RDW Plt Count MPV Immature Gran % (Auto) Neut % (Auto) Lymph % (Auto) [place] % (Auto) Eos % (Auto) Baso % (Auto) Lymph # (Auto) [place] # (Auto) Eos # (Auto) Baso # (Auto) Abs Immat Gran (auto) Absolute Neuts (auto) Absolute Nucleated RBC Nucleated RBC % Sodium Potassium Chloride Carbon Dioxide Anion Gap BUN Creatinine Estim Creat Clear Calc Estimated GFR Glucose POC Capillary Glucose 211 H Calcium Phosphorus Total Protein (PEP) Albumin Albumin (PEP) Globulin (PEP) Albumin/Globulin Ratio Qjjkg-0-Uyxnnhvya Coaiv-9-Rqosqpbhp Beta Globulins Gamma Globulins PEP Comment Urine Total Protein Urine Albumin (PEP) U Vipju-6-Pkiemapc U Taonl-4-Wkxogerf U Beta Globulin U Gamma Globulin U Random M-Chris (%) Urine PEP Note IgG IgA IgM Pr Electrophoresis MSpike KOBE Interpretation Urine Immunofixation Quality VTE Prophylaxis VTE prophylaxis: pharmacologic ordered Hospitalist MIPS Advance Care Plan I have confirmed that the patient's Advanced Care Plan is present, code status is documented, or surrogate decision maker is listed in patient medical record.: Yes Medication Reconciliation I have utilized all available resources to obtain, update and review the patients current medications (includes all prescriptions, OTC, herbals, cannabis, and nutritional supplements).: Yes
[2025-07-01 17:04] LABS: Hematocrit 25.4 % (42.0-52.0); Hemoglobin 8.3 g/dL (14.0-18.0); Immature Granulocyte Percent A 1.1 % (0-0.5); Lymphocytes Absolute Auto 0.28 K/mm3 (0.9-3.2); Mean Corpuscular HGB Conc 32.7 g/dl (32-36); Mean Corpuscular Hemoglobin 32.3 pg (26-34); Mean Corpuscular Volume 98.8 fl (80-100); Nucleated Red Blood Cells Absolute Auto 0.000 K/mm3 (0.0-0.012); Nucleated Red Blood Cells Perc 0.0 % (0.0-0.2); Platelet Count Result 117 k/mm3 (150-375); Red Blood Count 2.57 M/mm3 (4.6-6.20); White Blood Count 3.5 K/mm3 (4.5-10.0)
[2025-07-01] MEDS: TAMSULOSIN HCL 0.4 MG CAPSULE PO (17:56)
[2025-07-01] MEDS: SENNOSIDES 8.6 MG TABLET PO (21:36)
[2025-07-01] MEDS: MELATONIN 3 MG TABLET PO (21:36)
[2025-07-02] VITALS (9 sets, daily range): BP systolic 107–113; BP diastolic 43–50; PULSE 57–76; RESP 16–18; TEMP 36.5–37.1; O2SAT 100
[2025-07-02] MEDS: WATER FOR IRRIGATION, STERILE 1,000 ML BOTTLE 1000 ML (00:41)
[2025-07-02] MEDS: ACETAMINOPHEN 325 MG TABLET 650 MG PO ×2 (06:24→18:06)
[2025-07-02 06:53] LABS: Hematocrit 25.8 % (42.0-52.0); Hemoglobin 8.3 g/dL (14.0-18.0); Immature Granulocyte Percent A 0.4 % (0-0.5); Lymphocytes Absolute Auto 0.28 K/mm3 (0.9-3.2); Mean Corpuscular HGB Conc 32.2 g/dl (32-36); Mean Corpuscular Hemoglobin 32.5 pg (26-34); Mean Corpuscular Volume 101.2 fl (80-100); Nucleated Red Blood Cells Absolute Auto 0.000 K/mm3 (0.0-0.012); Nucleated Red Blood Cells Perc 0.0 % (0.0-0.2); Platelet Count Result 110 k/mm3 (150-375); Red Blood Count 2.55 M/mm3 (4.6-6.20); White Blood Count 2.8 K/mm3 (4.5-10.0)
[2025-07-02 07:04] LABS: INR 1.6; Prothrombin Time 19.1 Seconds (11.1-14.7)
[2025-07-02 07:15] LABS: Albumin Level 3.1 g/dL (3.5-5.1); Anion Gap 4 mmol/L (4-12); Blood Urea Nitrogen 86 mg/dL (9-20); Calcium 8.8 mg/dL (8.4-10.2); Carbon Dioxide 31 mmol/L (22-30); Chloride 98 mmol/L (98-107); Estimated CRCL calculation 50 ml/min; Estimated Glomerular Filt Rate 43; Glucose 206 mg/dL (65-110); Magnesium 2.2 mg/dL (1.6-2.3); Potassium 4.0 mmol/L (3.4-5.0); Sodium 133 mmol/L (137-145)
[2025-07-02] MEDS: SODIUM CHLORIDE 1 GM TABLET PO ×2 (08:51→17:55)
[2025-07-02] MEDS: PANTOPRAZOLE 40 MG TABLET PO (08:51)
[2025-07-02] MEDS: RANOLAZINE 500 MG TAB.ER.12H PO ×2 (08:51→21:36)
[2025-07-02] MEDS: FUROSEMIDE INJ 40 MG/4 ML VIAL 80 MG IV PUSH ×2 (08:52→17:55)
[2025-07-02] MEDS: INSULIN ASPART (*BKC) 100 UNITS/ML SUB-Q ×5 (09:02→21:34)
--- NOTE | 2025-07-02 10:36 | PM.PNNEP ---
Progress Note: A&P Assessment and Plan (1) Acute kidney injury: Code(s): N17.9 - Acute kidney failure, unspecified Status: Acute Assessment and Plan: improving (if not back to baseline) as noted on admission - creatinine of 2.96mg/dL etiology not clear -- suspect: CHF exacerbation variation of cardio-renal syndrome (diminished ECF) renal venous hypertension element of intravascular volume depletion (despite clear evidence of overload) relative anemia relative hypotension other(?) evaluation noted to date renal u/s without obstruction urine electrolytes prerenal (by FeUrea) urine eosinophils 0.01 moderate proteinuria CPK low improvement noted with diuresis: possible variation of nephrosarca relieved by diuresis alternatively, he could have a component of renal venous hypertension (also relieved by diuretics) follow trend of repeat labs and UOP (2) Stage 3 chronic kidney disease: Code(s): N18.30 - Chronic kidney disease, stage 3 unspecified Status: Chronic Assessment and Plan: baseline creatinine runs around 1.2 - 1.6mg/dl for the last few years this causes this to fluctuate between CKD stage 3A and 3B presumably due to diabetes, hypertension, vascular disease (CAD + CHF + hyperlipidemia), MARIANNA, obesity, and age-related disease (3) Acute exacerbation of CHF (congestive heart failure): Qualifiers: Heart failure type: diastolic Qualified Code(s): I50.33 - Acute on chronic diastolic (congestive) heart failure Code(s): I50.9 - Heart failure, unspecified Status: Acute Assessment and Plan: slow improvement based on evidence to date: significant LE edema/swelling bibasilar crackles on respiratory exam CXR with mild CHF elevated proBNP recent Echo (on 04/15/25) noted: left ventricular systolic function is normal, estimated at 55 - 60% left ventricular diastolic function is grade II diastolic moderate aortic valve calcification mild aortic valve stenosis mild mitral valve regurgitation moderate to severe tricuspid valve regurgitation severe pulmonary hypertension, estimated pulmonary arterial systolic pressure is 72 mmHg mild pulmonic regurgitation follow daily weights almost 6L negative since admission... ongoing diuresis switching to oral diuretics soon(?) rising CO2 suggestive of contraction alkalosis... monitor I/Os (4) Anasarca: Code(s): R60.1 - Generalized edema Status: Acute Assessment and Plan: significant lower extremity edema noted suspect a chronic component to LE edema likely due to pulmonary HTN and TR as noted by last Echo on IV diuretic therapy transition to oral diuretics soon (?) follow I/Os and daily weights continue fluid restriction (5) Atrial fibrillation: Qualifiers: Atrial fibrillation type: persistent (not longstanding) Qualified Code(s): I48.19 - Other persistent atrial fibrillation Code(s): I48.91 - Unspecified atrial fibrillation Status: Chronic Assessment and Plan: known history rate control strategy on anticoagulation (6) Hyponatremia: Code(s): E87.1 - Hypo-osmolality and hyponatremia Status: Acute Assessment and Plan: stable if not improving acute on chronic sodium has been normal at times but seems to average ~ 130 -136mmol/L in the last few years suspect acute drop due to volume overload/hypervolemia on diuretics on fluid restriction evaluation to date noted: TSH good cortisol okay SPEP without M-spike (immunofixation negative as well) UPEP with M-spike but urine immunofixation reports presence of monoclonal protein is unclear at this time serum/urine osmolality pending already on salt tabs (prior to admission) (7) Generalized weakness: Code(s): R53.1 - Weakness Status: Acute Assessment and Plan: presumably due to previous falls, orthopedic injuries, recent hospitalization, and deconditioning s/p stay at [facility] with discharge on 06/20 PT/OT as tolerated need placement again(?) was just recently discharged from [facility] (on 06/20) (8) Diabetes mellitus with neuropathy: Qualifiers: Diabetes mellitus assisted insulin use: with director long term care use Diabetes mellitus type: type 2 Qualified Code(s): E11.40 - Type 2 diabetes mellitus with diabetic neuropathy, unspecified; Z79.4 - halfway (current) use of insulin Code(s): E11.40 - Type 2 diabetes mellitus with diabetic neuropathy, unspecified Status: Chronic Assessment and Plan: follow accu-cheks glycemic control per hospitalist Will continue to follow. Subjective Date/time seen: 07/02/25 10:36 Interval history: Follow-up for acute kidney injury/acute renal failure on chronic kidney disease. No apparent distress noted at the time of my visit -- resting comfortably when seen; renal function/creatinine continues to improve with IV diuretic therapy with reasonable urine output noted; hematuria appears to have resolving (if not resolved); no other acute issues/events overnight or earlier this morning. Exam Narrative: General: elderly but WD/WN male in NAD Heart: normal S1 and S2; no rub Lungs: coarse and decreased at bases Abdomen: soft, nontender, nondistended, positive bowel sounds Extremities: no cyanosis or clubbing; 2+ edema Skin: no nodules Objective Data Vital Signs Vital Signs: Vital Signs Temp Pulse Resp BP Pulse Ox O2 Del Method 07/02/25 05:48 97.7 F 67 16 108/50 L 100 07/02/25 04:00 57 L 07/02/25 00:00 63 07/01/25 21:39 98.3 F 63 18 110/52 L 100 07/01/25 20:00 67 07/01/25 20:00 Room Air 07/01/25 17:59 118/52 L 07/01/25 16:00 63 07/01/25 14:00 97.1 F L 66 18 123/44 L 100 Intake/Output Intake/Output: Intake & Output 06/29/25 06/30/25 07/01/25 07/02/25 23:59 23:59 23:59 23:59 Intake Total 240 1448 1070 558 Output Total 1550 3520 2800 900 Balance -1310 -2072 -1730 -342 Meds/Results Medications: Active Medications Generic Name Dose Route Start Last Admin Trade Name Freq PRN Reason Stop Dose Admin Acetaminophen 650 mg 06/26/25 19:39 07/02/25 06:24 Acetaminophen 325 Mg Tablet PO 650 mg Q4H PRN Administration Mild Pain (1-3) or Fever Apixaban 5 mg 06/27/25 02:15 07/01/25 08:14 Apixaban 5 Mg Tablet PO 5 mg On Hold: 07/01/25 15:16 Q12HR YUNIOR Administration Dextrose 12.5 gm 06/26/25 21:20 Dextrose 50% 25 Gm/50 Ml Syringe IV PUSH PRN PRN Hypoglycemia Protocol Furosemide 80 mg 06/30/25 17:00 07/02/25 08:52 Furosemide Inj 40 Mg/4 Ml Vial IV PUSH 80 mg BID YUNIOR Administration Glucose 15 gm 06/26/25 21:20 Glucose Oral Gel 15 Gm Of Glucse In 37.5 Gm Tube PO PRN PRN Hypoglycemia Protocol Dextrose 1,000 mls @ 100 mls/hr 06/26/25 21:20 Dextrose 5% 1,000 Ml IVPB PRN PRN Hypoglycemia Protocol Insulin Aspart 2 - 5 units 06/27/25 08:00 07/02/25 09:02 Insulin Aspart (*Bkc) 100 Units/Ml SUB-Q 2 units TIDWM YUNIOR Administration Protocol Insulin Aspart 1 - 2 units 06/27/25 21:00 07/01/25 21:36 Insulin Aspart (*Bkc) 100 Units/Ml SUB-Q 1 units HS YUNIOR Administration Protocol Melatonin 3 mg 06/27/25 02:15 07/01/25 21:36 Melatonin 3 Mg Tablet PO 3 mg HS YUNIOR Administration Pantoprazole Sodium 40 mg 06/27/25 09:00 07/02/25 08:51 Pantoprazole 40 Mg Tablet PO 40 mg QAM YUNIOR Administration Polyethylene Glycol 17 gm 06/29/25 17:00 07/02/25 08:48 Polyethylene Glycol 3350 17 Gm Powd.Pack PO 17 gm BID YUNIOR Administration Polysaccharide Iron Complex 150 mg 06/27/25 08:00 07/02/25 08:51 Polysaccharide Iron Complex 150 Mg Capsule PO 150 mg DAILY@0800 YUNIOR Administration Ranolazine 500 mg 06/27/25 02:20 07/02/25 08:51 Ranolazine 500 Mg Tab.Er.12h PO 500 mg Q12HR YUNIOR Administration Senna 8.6 mg 06/29/25 10:02 Sennosides 8.6 Mg Tablet PO BID PRN Constipation Senna 8.6 mg 07/01/25 21:00 07/01/25 21:36 Sennosides 8.6 Mg Tablet PO 8.6 mg HS YUNIOR Administration Sodium Chloride 1 gm 06/27/25 02:15 07/02/25 08:51 Sodium Chloride 1 Gm Tablet PO 1 gm BID YUNIOR Administration Tamsulosin HCl 0.4 mg 06/27/25 18:00 07/01/25 17:56 Tamsulosin Hcl 0.4 Mg Capsule PO 0.4 mg QPM YUNIOR Administration Radiology Results: ITS Impressions Chest X-Ray 06/26/25 17:49 Impression: Mild CHF Renal Ultrasound 06/27/25 12:21 IMPRESSION: 1. Normal right kidney and suboptimally visualized but normal-appearing left kidney, both with no hydronephrosis. 2. Small amount of ascites in the pelvis. Abdomen X-Ray 06/28/25 14:47 IMPRESSION: 1. No acute findings. 2. Volume of stool not significantly increased. Labs Labs: Laboratory Tests 07/02/25 06:31 07/02/25 06:31 Calcium 8.8 Phosphorus 3.0 Magnesium 2.2 Albumin 3.1 L
--- NOTE | 2025-07-02 10:36 | P.PNNP_ITS ---
Progress Note: A&P Assessment and Plan (1) Acute kidney injury: Code(s): N17.9 - Acute kidney failure, unspecified Status: Acute Assessment and Plan: * improving (if not back to baseline) * as noted on admission - creatinine of 2.96mg/dL * etiology not clear -- suspect: * CHF exacerbation * variation of cardio-renal syndrome (diminished ECF) * renal venous hypertension * element of intravascular volume depletion (despite clear evidence of overload) * relative anemia * relative hypotension * other(?) * evaluation noted to date * renal u/s without obstruction * urine electrolytes prerenal (by FeUrea) * urine eosinophils 0.01 * moderate proteinuria * CPK low * improvement noted with diuresis: * possible variation of nephrosarca relieved by diuresis * alternatively, he could have a component of renal venous hypertension (also relieved by diuretics) * follow trend of repeat labs and UOP (2) Stage 3 chronic kidney disease: Code(s): N18.30 - Chronic kidney disease, stage 3 unspecified Status: Chronic Assessment and Plan: * baseline creatinine runs around 1.2 - 1.6mg/dl for the last few years * this causes this to fluctuate between CKD stage 3A and 3B * presumably due to diabetes, hypertension, vascular disease (CAD + CHF + hyperlipidemia), MARIANNA, obesity, and age-related disease (3) Acute exacerbation of CHF (congestive heart failure): Qualifiers: Heart failure type: diastolic Qualified Code(s): I50.33 - Acute on chronic diastolic (congestive) heart failure Code(s): I50.9 - Heart failure, unspecified Status: Acute Assessment and Plan: * slow improvement * based on evidence to date: * significant LE edema/swelling * bibasilar crackles on respiratory exam * CXR with mild CHF * elevated proBNP * recent Echo (on 04/15/25) noted: * left ventricular systolic function is normal, estimated at 55 - 60% * left ventricular diastolic function is grade II diastolic * moderate aortic valve calcification * mild aortic valve stenosis * mild mitral valve regurgitation * moderate to severe tricuspid valve regurgitation * severe pulmonary hypertension, estimated pulmonary arterial systolic pressure is 72 mmHg * mild pulmonic regurgitation * follow daily weights * almost 6L negative since admission... * ongoing diuresis * switching to oral diuretics soon(?) * rising CO2 suggestive of contraction alkalosis... * monitor I/Os (4) Anasarca: Code(s): R60.1 - Generalized edema Status: Acute Assessment and Plan: * significant lower extremity edema noted * suspect a chronic component to LE edema * likely due to pulmonary HTN and TR as noted by last Echo * on IV diuretic therapy * transition to oral diuretics soon (?) * follow I/Os and daily weights * continue fluid restriction (5) Atrial fibrillation: Qualifiers: Atrial fibrillation type: persistent (not longstanding) Qualified Code(s): I48.19 - Other persistent atrial fibrillation Code(s): I48.91 - Unspecified atrial fibrillation Status: Chronic Assessment and Plan: * known history * rate control strategy * on anticoagulation (6) Hyponatremia: Code(s): E87.1 - Hypo-osmolality and hyponatremia Status: Acute Assessment and Plan: * stable if not improving * acute on chronic * sodium has been normal at times but seems to average ~ 130 -136mmol/L in the last few years * suspect acute drop due to volume overload/hypervolemia * on diuretics * on fluid restriction * evaluation to date noted: * TSH good * cortisol okay * SPEP without M-spike (immunofixation negative as well) * UPEP with M-spike but urine immunofixation reports presence of monoclonal protein is unclear at this time * serum/urine osmolality pending * already on salt tabs (prior to admission) (7) Generalized weakness: Code(s): R53.1 - Weakness Status: Acute Assessment and Plan: * presumably due to previous falls, orthopedic injuries, recent hospitalization, and deconditioning * s/p stay at [facility] with discharge on 06/20 * PT/OT as tolerated * need placement again(?) * was just recently discharged from [facility] (on 06/20) (8) Diabetes mellitus with neuropathy: Qualifiers: Diabetes mellitus senior living insulin use: with beater worker helper use Diabetes mellitus type: type 2 Qualified Code(s): E11.40 - Type 2 diabetes mellitus with diabetic neuropathy, unspecified; Z79.4 - detention (current) use of 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 L Subjective Date/time seen: 07/02/25 10:36 Interval history: Follow-up for acute kidney injury/acute renal failure on chronic kidney disease. No apparent distress noted at the time of my visit -- resting comfortably when seen; renal function/creatinine continues to improve with IV diuretic therapy with reasonable urine output noted; hematuria appears to have resolving (if not resolved); no other acute issues/events overnight or earlier this morning. Exam 2 Narrative: General: elderly but WD/WN male in NAD Heart: normal S1 and S2; no rub Lungs: coarse and decreased at bases Abdomen: soft, nontender, nondistended, positive bowel sounds Extremities: no cyanosis or clubbing; 2+ edema Skin: no nodules Objective Data Vital Signs Vital Signs: Vital Signs Temp Pulse Resp BP Pulse Ox O2 Del Method 07/02/25 05:48 97.7 F 67 16 108/50 L 100 07/02/25 04:00 57 L 07/02/25 00:00 63 07/01/25 21:39 98.3 F 63 18 110/52 L 100 07/01/25 20:00 67 07/01/25 20:00 Room Air 07/01/25 17:59 118/52 L 07/01/25 16:00 63 07/01/25 14:00 97.1 F L 66 18 123/44 L 100 Intake/Output Intake/Output: Intake & Output 06/29/25 06/30/25 07/01/25 07/02/25 23:59 23:59 23:59 23:59 Intake Total 240 1448 1070 558 Output Total 1550 3520 2800 900 Balance -2227 -3272 -0703 -342 Meds/Results Medications: Active Medications Generic Name Dose Route Start Last Admin Trade Name Freq PRN Reason Stop Dose Admin Acetaminophen 650 mg 06/26/25 19:39 07/02/25 06:24 Acetaminophen 325 Mg Tablet PO 650 mg Q4H PRN Administration Mild Pain (1-3) or Fever Apixaban 5 mg 06/27/25 02:15 07/01/25 08:14 Apixaban 5 Mg Tablet PO 5 mg On Hold: 07/01/25 15:16 Q12HR YUNIOR Administration Dextrose 12.5 gm 06/26/25 21:20 Dextrose 50% 25 Gm/50 Ml Syringe IV PUSH PRN PRN Hypoglycemia Protocol Furosemide 80 mg 06/30/25 17:00 07/02/25 08:52 Furosemide Inj 40 Mg/4 Ml Vial IV PUSH 80 mg BID YUNIOR Administration Glucose 15 gm 06/26/25 21:20 Glucose Oral Gel 15 Gm Of Glucse In 37.5 Gm Tube PO PRN PRN Hypoglycemia Protocol Dextrose 1,000 mls @ 100 mls/hr 06/26/25 21:20 Dextrose 5% 1,000 Ml IVPB PRN PRN Hypoglycemia Protocol Insulin Aspart 2 - 5 units 06/27/25 08:00 07/02/25 09:02 Insulin Aspart (*Bkc) 100 Units/Ml SUB-Q 2 units TIDWM YUNIOR Administration Protocol Insulin Aspart 1 - 2 units 06/27/25 21:00 07/01/25 21:36 Insulin Aspart (*Bkc) 100 Units/Ml SUB-Q 1 units HS YUNIOR Administration Protocol Melatonin 3 mg 06/27/25 02:15 07/01/25 21:36 Melatonin 3 Mg Tablet PO 3 mg HS YUNIOR Administration Pantoprazole Sodium 40 mg 06/27/25 09:00 07/02/25 08:51 Pantoprazole 40 Mg Tablet PO 40 mg QAM YUNIOR Administration Polyethylene Glycol 17 gm 06/29/25 17:00 07/02/25 08:48 Polyethylene Glycol 3350 17 Gm Powd.Pack PO 17 gm BID YUNIOR Administration Polysaccharide Iron Complex 150 mg 06/27/25 08:00 07/02/25 08:51 Polysaccharide Iron Complex 150 Mg Capsule PO 150 mg DAILY@0800 YUNIOR Administration Ranolazine 500 mg 06/27/25 02:20 07/02/25 08:51 Ranolazine 500 Mg Tab.Er.12h PO 500 mg Q12HR YUNIOR Administration Senna 8.6 mg 06/29/25 10:02 Sennosides 8.6 Mg Tablet PO BID PRN Constipation Senna 8.6 mg 07/01/25 21:00 07/01/25 21:36 Sennosides 8.6 Mg Tablet PO 8.6 mg HS YUNIOR Administration Sodium Chloride 1 gm 06/27/25 02:15 07/02/25 08:51 Sodium Chloride 1 Gm Tablet PO 1 gm BID YUNIOR Administration Tamsulosin HCl 0.4 mg 06/27/25 18:00 07/01/25 17:56 Tamsulosin Hcl 0.4 Mg Capsule PO 0.4 mg QPM YUNIOR Administration Radiology Results: ITS Impressions Chest X-Ray 06/26/25 17:49 Impression: Mild CHF Renal Ultrasound 06/27/25 12:21 IMPRESSION: 1. Normal right kidney and suboptimally visualized but normal-appearing left kidney, both with no hydronephrosis. 2. Small amount of ascites in the pelvis. Abdomen X-Ray 06/28/25 14:47 IMPRESSION: 1. No acute findings. 2. Volume of stool not significantly increased. Labs Labs: Laboratory Tests 07/02/25 06:31 07/02/25 06:31 Calcium 8.8 Phosphorus 3.0 Magnesium 2.2 Albumin 3.1 L
--- NOTE | 2025-07-02 11:03 | P.PNUR_ITS ---
Progress Note: A&P Assessment and Plan (1) Hematuria: Code(s): R31.9 - Hematuria, unspecified Status: Acute Assessment and Plan: * Urine remains clear. Okay to remove catheter any time, from my standpoint Subjective Subjective Date/Time Seen: 07/02/25 11:03 Interval history: No complaints, tolerating catheter Review of Systems Review of Systems: All systems reviewed & are unremarkable except as noted in HPI and below Exam Const: General: no acute distress Resp: Effort & Inspection: normal respiratory effort GI: Inspection: non-distended GI Palp: No abdominal tenderness and No Guarding due to palpation present (GI) Auscultation: normal bowel sounds Urinary Catheter: Urinary Catheter: patent and draining and urine clear Objective Data Vital Signs Vital Signs: Vital Signs - 24 hr 07/01/25 12:00 07/01/25 12:11 07/01/25 14:00 Temperature 97.1 F L Pulse Rate 70 66 Respiratory Rate 18 Blood Pressure 118/60 123/44 L Pulse Oximetry 100 Oxygen Delivery 07/01/25 16:00 07/01/25 17:59 07/01/25 20:00 Temperature Pulse Rate 63 Respiratory Rate Blood Pressure 118/52 L Pulse Oximetry Oxygen Delivery Room Air 07/01/25 20:00 07/01/25 21:39 07/02/25 00:00 Temperature 98.3 F Pulse Rate 67 63 63 Respiratory Rate 18 Blood Pressure 110/52 L Pulse Oximetry 100 Oxygen Delivery 07/02/25 04:00 07/02/25 05:48 Temperature 97.7 F Pulse Rate 57 L 67 Respiratory Rate 16 Blood Pressure 108/50 L Pulse Oximetry 100 Oxygen Delivery Intake/Output Intake/Output: Intake & Output 06/29/25 06/30/25 07/01/25 07/02/25 23:59 23:59 23:59 23:59 Intake Total 240 1448 1070 558 Output Total 1550 3520 2800 900 [facility] -1310 -2072 -1730 -342 Meds/Results Medications: Active Medications Generic Name Dose Route Start Last Admin Trade Name Freq PRN Reason Stop Dose Admin Acetaminophen 650 mg 06/26/25 19:39 07/02/25 06:24 Acetaminophen 325 Mg Tablet PO 650 mg Q4H PRN Administration Mild Pain (1-3) or Fever Apixaban 5 mg 06/27/25 02:15 07/01/25 08:14 Apixaban 5 Mg Tablet PO 5 mg On Hold: 07/01/25 15:16 Q12HR YUNIOR Administration Dextrose 12.5 gm 06/26/25 21:20 Dextrose 50% 25 Gm/50 Ml Syringe IV PUSH PRN PRN Hypoglycemia Protocol Furosemide 80 mg 06/30/25 17:00 07/02/25 08:52 Furosemide Inj 40 Mg/4 Ml Vial IV PUSH 80 mg BID YUNIOR Administration Glucose 15 gm 06/26/25 21:20 Glucose Oral Gel 15 Gm Of Glucse In 37.5 Gm Tube PO PRN PRN Hypoglycemia Protocol Dextrose 1,000 mls @ 100 mls/hr 06/26/25 21:20 Dextrose 5% 1,000 Ml IVPB PRN PRN Hypoglycemia Protocol Insulin Aspart 2 - 5 units 06/27/25 08:00 07/02/25 09:02 Insulin Aspart (*Bkc) 100 Units/Ml SUB-Q 2 units TIDWM YUNIOR Administration Protocol Insulin Aspart 1 - 2 units 06/27/25 21:00 07/01/25 21:36 Insulin Aspart (*Bkc) 100 Units/Ml SUB-Q 1 units HS YUNIOR Administration Protocol Melatonin 3 mg 06/27/25 02:15 07/01/25 21:36 Melatonin 3 Mg Tablet PO 3 mg HS YUNIOR Administration Pantoprazole Sodium 40 mg 06/27/25 09:00 07/02/25 08:51 Pantoprazole 40 Mg Tablet PO 40 mg QAM YUNIOR Administration Polyethylene Glycol 17 gm 06/29/25 17:00 07/02/25 08:48 Polyethylene Glycol 3350 17 Gm Powd.Pack PO 17 gm BID YUNIOR Administration Polysaccharide Iron Complex 150 mg 06/27/25 08:00 07/02/25 08:51 Polysaccharide Iron Complex 150 Mg Capsule PO 150 mg DAILY@0800 YUNIOR Administration Ranolazine 500 mg 06/27/25 02:20 07/02/25 08:51 Ranolazine 500 Mg Tab.Er.12h PO 500 mg Q12HR YUNIOR Administration Senna 8.6 mg 06/29/25 10:02 Sennosides 8.6 Mg Tablet PO BID PRN Constipation Senna 8.6 mg 07/01/25 21:00 07/01/25 21:36 Sennosides 8.6 Mg Tablet PO 8.6 mg HS YUNIOR Administration Sodium Chloride 1 gm 06/27/25 02:15 07/02/25 08:51 Sodium Chloride 1 Gm Tablet PO 1 gm BID YUNIOR Administration Tamsulosin HCl 0.4 mg 06/27/25 18:00 07/01/25 17:56 Tamsulosin Hcl 0.4 Mg Capsule PO 0.4 mg QPM YUNIOR Administration Radiology Results: ITS Impressions Chest X-Ray 06/26/25 17:49 Impression: Mild CHF Renal Ultrasound 06/27/25 12:21 IMPRESSION: 1. Normal right kidney and suboptimally visualized but normal-appearing left kidney, both with no hydronephrosis. 2. Small amount of ascites in the pelvis. Abdomen X-Ray 06/28/25 14:47 IMPRESSION: 1. No acute findings. 2. Volume of stool not significantly increased. Labs Labs: Laboratory Results - last 24 hr 06/28/25 06/29/25 06/29/25 14:45 06:35 15:04 WBC RBC Hgb Hct MCV MCH MCHC RDW Plt Count MPV Immature Gran % (Auto) Neut % (Auto) Lymph % (Auto) Stephenson % (Auto) Eos % (Auto) Baso % (Auto) Lymph # (Auto) Stephenson # (Auto) Eos # (Auto) Baso # (Auto) Abs Immat Gran (auto) Absolute Neuts (auto) Absolute Nucleated RBC Nucleated RBC % PT INR Sodium Potassium Chloride Carbon Dioxide Anion Gap BUN Creatinine Estim Creat Clear Calc Estimated GFR Glucose POC Capillary Glucose Calcium Phosphorus Magnesium Albumin Urine Total Protein 49.8 Urine Albumin (PEP) 46.2 U Oynrc-2-Tzzmiohe 3.5 U Uhibd-2-Awzqtuvx 8.9 U Beta Globulin 16.0 U Gamma Globulin 25.5 U Random M-Chris (%) 6.6 H Urine PEP Note Comment IgG 1566 IgA 444 H IgM 31 KOBE Interpretation Comment Urine Immunofixation Comment: Blood Type Antibody Screen 07/01/25 07/01/25 07/01/25 12:24 16:47 16:54 WBC 3.5 L RBC 2.57 L Hgb 8.3 L Hct 25.4 L MCV 98.8 MCH 32.3 MCHC 32.7 RDW 15.3 H Plt Count 117 L MPV 9.7 Immature Gran % (Auto) 1.1 H Neut % (Auto) 76.8 H Lymph % (Auto) 7.9 L Stephenson % (Auto) 12.2 H Eos % (Auto) 1.7 Baso % (Auto) 0.3 Lymph # (Auto) 0.28 L Stephenson # (Auto) 0.4 Eos # (Auto) 0.1 Baso # (Auto) 0.0 Abs Immat Gran (auto) 0.04 H Absolute Neuts (auto) 2.7 Absolute Nucleated RBC 0.000 Nucleated RBC % 0.0 PT INR Sodium Potassium Chloride Carbon Dioxide Anion Gap BUN Creatinine Estim Creat Clear Calc Estimated GFR Glucose POC Capillary Glucose 211 H 233 H Calcium Phosphorus Magnesium Albumin Urine Total Protein Urine Albumin (PEP) U Gvzde-4-Ihwzzdtk U Syday-2-Umzehruf U Beta Globulin U Gamma Globulin U Random M-Chris (%) Urine PEP Note IgG IgA IgM KOBE Interpretation Urine Immunofixation Blood Type A Negative Antibody Screen Negative 07/01/25 07/02/25 07/02/25 21:02 06:31 08:40 WBC 2.8 L RBC 2.55 L Hgb 8.3 L Hct 25.8 L MCV 101.2 H MCH 32.5 MCHC 32.2 RDW 15.3 H Plt Count 110 L MPV 9.6 Immature Gran % (Auto) 0.4 Neut % (Auto) 74.8 H Lymph % (Auto) 9.9 L Stephenson % (Auto) 11.7 H Eos % (Auto) 2.5 Baso % (Auto) 0.7 Lymph # (Auto) 0.28 L Stephenson # (Auto) 0.3 Eos # (Auto) 0.1 Baso # (Auto) 0.0 Abs Immat Gran (auto) 0.01 Absolute Neuts (auto) 2.1 Absolute Nucleated RBC 0.000 Nucleated RBC % 0.0 PT 19.1 H D INR 1.6 Sodium 133 L Potassium 4.0 Chloride 98 Carbon Dioxide 31 H Anion Gap 4 BUN 86 H Creatinine 1.56 H Estim Creat Clear Calc 50 Estimated GFR 43 L Glucose 206 H POC Capillary Glucose 264 H 223 H Calcium 8.8 Phosphorus 3.0 Magnesium 2.2 Albumin 3.1 L Urine Total Protein Urine Albumin (PEP) U Ufkcr-7-Tlbpygcn U Tzsai-2-Gpjmcoim U Beta Globulin U Gamma Globulin U Random M-Chris (%) Urine PEP Note IgG IgA IgM KOBE Interpretation Urine Immunofixation Blood Type Antibody Screen
--- NOTE | 2025-07-02 11:17 | PM.IMPN ---
Progress Note: A&P Assessment and Plan (1) Hypertension: Qualifiers: Hypertension type: essential hypertension Qualified Code(s): I10 - Essential (primary) hypertension Code(s): I10 - Essential (primary) hypertension Status: Chronic (2) Acute exacerbation of CHF (congestive heart failure): Qualifiers: Heart failure type: diastolic Qualified Code(s): I50.33 - Acute on chronic diastolic (congestive) heart failure Code(s): I50.9 - Heart failure, unspecified Status: Acute (3) Atrial fibrillation: Qualifiers: Atrial fibrillation type: persistent (not longstanding) Qualified Code(s): I48.19 - Other persistent atrial fibrillation Code(s): I48.91 - Unspecified atrial fibrillation Status: Chronic (4) Hyponatremia: Code(s): E87.1 - Hypo-osmolality and hyponatremia Status: Acute (5) Morbid (severe) obesity due to excess calories: Code(s): E66.01 - Morbid (severe) obesity due to excess calories Status: Acute (6) AALIYAH (acute kidney injury): Code(s): N17.9 - Acute kidney failure, unspecified Status: Acute (7) Stage 3 chronic kidney disease: Code(s): N18.30 - Chronic kidney disease, stage 3 unspecified Status: Chronic (8) Acute hyperkalemia: Code(s): E87.5 - Hyperkalemia Status: Acute Plan 79-year-old male with a PMH CHF with grade 2 diastolic dysfunction, pulmonary hypertension, CAD status post CABG in 2018, paroxysmal atrial fibrillation, first-degree AV block, obesity, left bundle branch block, hyper and hypokalemia, chronic hyponatremia, history of renal cell carcinoma, history of prostate cancer, chronic pancytopenia, chronic debility, CKD stage 3, fracture of left inferior pubic ramus and left acetabulum fracture in 06/2025, 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 Acute SOB: Acute chf/volume overload Currently on room air Continue with IV Lasix 80 BID fluid restriction Strict I&O's Daily weight Compression stocking Aaliyah I on pre-existing CKD stage 3: Renal ultrasound unremarkable Potassium levels better Follow kidney function, improving History of chronic hyponatremia continue salt tablets Renal consult Urinary retention Simmons placed for urinary retention Hematuria resolving Plan to remove simmons Hematuria Urology consulted, appreciate recommendations Clots in catheter this AM, irrigated. Urine still red, likely clearing up Could be due to irri History of atrial fibrillation with slow ventricular response: Continue with tele monitoring No beta-blockers Hold Eliquis for hematuria History of diabetes mellitus: Blood glucose checked t.i.d. a.c. and HS Continue with sliding scale insulin Add mealtime insulin 2 units TID with meals Lantus 10 units x1 Recent hemoglobin 6.1 Constipation: 06/28 KUB no acute findings Code status: Full DVT prophylaxis: Eliquis P.T./OT Disposition: Pending improvement Time Spent With Patient Time: 57 minutes Subjective Date/time seen: 07/02/25 11:17 Interval history: Feeling fatigued. Creatinine improving with IV diuresis. Creatinine 1.56. Still very edematous WBC 2.8 Blood sugars above goal, increasing insulin Says he need two days notice to discharge so patient has been notified that discharge will be either tomorrow or friday pending labs Review of Systems Review of Systems: All systems reviewed & are unremarkable except as noted in HPI and below Exam Narrative: General appearance: Well-developed Skin: 4+ edema bilaterally, compression stocking on Head: Normocephalic, nontraumatic Eyes: Clear conjunctiva ENT: Dry oral cavity and lips Neck: Supple, nontender Chest and respiratory: Airway patent, no respiratory distress,basilar rales bilaterally Heart: Bradycardia Abdomen: Soft, nontender, no organomegaly, quiet bowel sounds Vascular: Normal peripheral pulses, normal capillary refill. 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 Simmons with red urine Objective Data Vital Signs Vital Signs: Vital Signs - 24 hr 07/01/25 12:00 07/01/25 12:11 07/01/25 14:00 Temperature 97.1 F L Pulse Rate 70 66 Respiratory Rate 18 Blood Pressure 118/60 123/44 L Pulse Oximetry 100 Oxygen Delivery 07/01/25 16:00 07/01/25 17:59 07/01/25 20:00 Temperature Pulse Rate 63 Respiratory Rate Blood Pressure 118/52 L Pulse Oximetry Oxygen Delivery Room Air 07/01/25 20:00 07/01/25 21:39 07/02/25 00:00 Temperature 98.3 F Pulse Rate 67 63 63 Respiratory Rate 18 Blood Pressure 110/52 L Pulse Oximetry 100 Oxygen Delivery 07/02/25 04:00 07/02/25 05:48 Temperature 97.7 F Pulse Rate 57 L 67 Respiratory Rate 16 Blood Pressure 108/50 L Pulse Oximetry 100 Oxygen Delivery Intake/Output Intake/Output: Intake & Output 06/29/25 06/30/25 07/01/25 07/02/25 23:59 23:59 23:59 23:59 Intake Total 240 1448 1070 558 Output Total 1550 3520 2800 900 [facility] [place] [phone] Meds/Results Medications: Active Medications Generic Name Dose Route Start Last Admin Trade Name Freq PRN Reason Stop Dose Admin Acetaminophen 650 mg 06/26/25 19:39 07/02/25 06:24 Acetaminophen 325 Mg Tablet PO 650 mg Q4H PRN Administration Mild Pain (1-3) or Fever Apixaban 5 mg 06/27/25 02:15 07/01/25 08:14 Apixaban 5 Mg Tablet PO 5 mg On Hold: 07/01/25 15:16 Q12HR YUNIOR Administration Dextrose 12.5 gm 06/26/25 21:20 Dextrose 50% 25 Gm/50 Ml Syringe IV PUSH PRN PRN Hypoglycemia Protocol Furosemide 80 mg 06/30/25 17:00 07/02/25 08:52 Furosemide Inj 40 Mg/4 Ml Vial IV PUSH 80 mg BID YUNIOR Administration Glucose 15 gm 06/26/25 21:20 Glucose Oral Gel 15 Gm Of Glucse In 37.5 Gm Tube PO PRN PRN Hypoglycemia Protocol Dextrose 1,000 mls @ 100 mls/hr 06/26/25 21:20 Dextrose 5% 1,000 Ml IVPB PRN PRN Hypoglycemia Protocol Insulin Aspart 2 - 5 units 06/27/25 08:00 07/02/25 09:02 Insulin Aspart (*Bkc) 100 Units/Ml SUB-Q 2 units TIDWM YUNIOR Administration Protocol Insulin Aspart 1 - 2 units 06/27/25 21:00 07/01/25 21:36 Insulin Aspart (*Bkc) 100 Units/Ml SUB-Q 1 units HS YUNIOR Administration Protocol Melatonin 3 mg 06/27/25 02:15 07/01/25 21:36 Melatonin 3 Mg Tablet PO 3 mg HS YUNIOR Administration Pantoprazole Sodium 40 mg 06/27/25 09:00 07/02/25 08:51 Pantoprazole 40 Mg Tablet PO 40 mg QAM YUNIOR Administration Polyethylene Glycol 17 gm 06/29/25 17:00 07/02/25 08:48 Polyethylene Glycol 3350 17 Gm Powd.Pack PO 17 gm BID YUNIOR Administration Polysaccharide Iron Complex 150 mg 06/27/25 08:00 07/02/25 08:51 Polysaccharide Iron Complex 150 Mg Capsule PO 150 mg DAILY@0800 YUNIOR Administration Ranolazine 500 mg 06/27/25 02:20 07/02/25 08:51 Ranolazine 500 Mg Tab.Er.12h PO 500 mg Q12HR YUNIOR Administration Senna 8.6 mg 06/29/25 10:02 Sennosides 8.6 Mg Tablet PO BID PRN Constipation Senna 8.6 mg 07/01/25 21:00 07/01/25 21:36 Sennosides 8.6 Mg Tablet PO 8.6 mg HS YUNIOR Administration Sodium Chloride 1 gm 06/27/25 02:15 07/02/25 08:51 Sodium Chloride 1 Gm Tablet PO 1 gm BID YUNIOR Administration Tamsulosin HCl 0.4 mg 06/27/25 18:00 07/01/25 17:56 Tamsulosin Hcl 0.4 Mg Capsule PO 0.4 mg QPM YUNIOR Administration Radiology Results: ITS Impressions Chest X-Ray 06/26/25 17:49 Impression: Mild CHF Renal Ultrasound 06/27/25 12:21 IMPRESSION: 1. Normal right kidney and suboptimally visualized but normal-appearing left kidney, both with no hydronephrosis. 2. Small amount of ascites in the pelvis. Abdomen X-Ray 06/28/25 14:47 IMPRESSION: 1. No acute findings. 2. Volume of stool not significantly increased. Labs Labs: Laboratory Results - last 24 hr 06/28/25 06/29/25 06/29/25 14:45 06:35 15:04 WBC RBC Hgb Hct MCV MCH MCHC RDW Plt Count MPV Immature Gran % (Auto) Neut % (Auto) Lymph % (Auto) [place] % (Auto) Eos % (Auto) Baso % (Auto) Lymph # (Auto) [place] # (Auto) Eos # (Auto) Baso # (Auto) Abs Immat Gran (auto) Absolute Neuts (auto) Absolute Nucleated RBC Nucleated RBC % PT INR Sodium Potassium Chloride Carbon Dioxide Anion Gap BUN Creatinine Estim Creat Clear Calc Estimated GFR Glucose POC Capillary Glucose Calcium Phosphorus Magnesium Albumin Urine Total Protein 49.8 Urine Albumin (PEP) 46.2 U Bryzq-8-Svwtwzyu 3.5 U Sqdwo-1-Oglotnnl 8.9 U Beta Globulin 16.0 U Gamma Globulin 25.5 U Random M-Chris (%) 6.6 H Urine PEP Note Comment IgG 1566 IgA 444 H IgM 31 KOBE Interpretation Comment Urine Immunofixation Comment: Blood Type Antibody Screen 07/01/25 07/01/25 07/01/25 12:24 16:47 16:54 WBC 3.5 L RBC 2.57 L Hgb 8.3 L Hct 25.4 L MCV 98.8 MCH 32.3 MCHC 32.7 RDW 15.3 H Plt Count 117 L MPV 9.7 Immature Gran % (Auto) 1.1 H Neut % (Auto) 76.8 H Lymph % (Auto) 7.9 L [place] % (Auto) 12.2 H Eos % (Auto) 1.7 Baso % (Auto) 0.3 Lymph # (Auto) 0.28 L [place] # (Auto) 0.4 Eos # (Auto) 0.1 Baso # (Auto) 0.0 Abs Immat Gran (auto) 0.04 H Absolute Neuts (auto) 2.7 Absolute Nucleated RBC 0.000 Nucleated RBC % 0.0 PT INR Sodium Potassium Chloride Carbon Dioxide Anion Gap BUN Creatinine Estim Creat Clear Calc Estimated GFR Glucose POC Capillary Glucose 211 H 233 H Calcium Phosphorus Magnesium Albumin Urine Total Protein Urine Albumin (PEP) U Dbatk-4-Bfulwiyo U Aakqn-0-Taytolss U Beta Globulin U Gamma Globulin U Random M-Chris (%) Urine PEP Note IgG IgA IgM KOBE Interpretation Urine Immunofixation Blood Type A Negative Antibody Screen Negative 07/01/25 07/02/25 07/02/25 21:02 06:31 08:40 WBC 2.8 L RBC 2.55 L Hgb 8.3 L Hct 25.8 L MCV 101.2 H MCH 32.5 MCHC 32.2 RDW 15.3 H Plt Count 110 L MPV 9.6 Immature Gran % (Auto) 0.4 Neut % (Auto) 74.8 H Lymph % (Auto) 9.9 L [place] % (Auto) 11.7 H Eos % (Auto) 2.5 Baso % (Auto) 0.7 Lymph # (Auto) 0.28 L [place] # (Auto) 0.3 Eos # (Auto) 0.1 Baso # (Auto) 0.0 Abs Immat Gran (auto) 0.01 Absolute Neuts (auto) 2.1 Absolute Nucleated RBC 0.000 Nucleated RBC % 0.0 PT 19.1 H D INR 1.6 Sodium 133 L Potassium 4.0 Chloride 98 Carbon Dioxide 31 H Anion Gap 4 BUN 86 H Creatinine 1.56 H Estim Creat Clear Calc 50 Estimated GFR 43 L Glucose 206 H POC Capillary Glucose 264 H 223 H Calcium 8.8 Phosphorus 3.0 Magnesium 2.2 Albumin 3.1 L Urine Total Protein Urine Albumin (PEP) U Qcqcc-8-[place] U Hkgrn-8-Zlckuofx U Beta Globulin U Gamma Globulin U Random M-Chris (%) Urine PEP Note IgG IgA IgM KOBE Interpretation Urine Immunofixation Blood Type Antibody Screen Quality VTE Prophylaxis VTE prophylaxis: pharmacologic ordered Hospitalist MIPS Advance Care Plan I have confirmed that the patient's Advanced Care Plan is present, code status is documented, or surrogate decision maker is listed in patient medical record.: Yes Medication Reconciliation I have utilized all available resources to obtain, update and review the patients current medications (includes all prescriptions, OTC, herbals, cannabis, and nutritional supplements).: Yes
[2025-07-02] MEDS: TAMSULOSIN HCL 0.4 MG CAPSULE PO (17:55)
[2025-07-02] MEDS: INSULIN GLARGINE (*BKC) 100 UNITS/ML 10 UNITS SUB-Q (17:55)
[2025-07-02] MEDS: SENNOSIDES 8.6 MG TABLET PO (21:36)
[2025-07-02] MEDS: MELATONIN 3 MG TABLET PO (21:36)
[2025-07-03] VITALS (9 sets, daily range): BP systolic 109–125; BP diastolic 48–53; PULSE 61–81; RESP 16–20; TEMP 36.2–36.4; O2SAT 100
[2025-07-03] MEDS: ACETAMINOPHEN 325 MG TABLET 650 MG PO (02:34)
[2025-07-03 06:40] LABS: Hematocrit 25.6 % (42.0-52.0); Hemoglobin 8.3 g/dL (14.0-18.0); Immature Granulocyte Percent A 0.4 % (0-0.5); Lymphocytes Absolute Auto 0.29 K/mm3 (0.9-3.2); Mean Corpuscular HGB Conc 32.4 g/dl (32-36); Mean Corpuscular Hemoglobin 32.7 pg (26-34); Mean Corpuscular Volume 100.8 fl (80-100); Nucleated Red Blood Cells Absolute Auto 0.000 K/mm3 (0.0-0.012); Nucleated Red Blood Cells Perc 0.0 % (0.0-0.2); Platelet Count Result 101 k/mm3 (150-375); Red Blood Count 2.54 M/mm3 (4.6-6.20); White Blood Count 2.8 K/mm3 (4.5-10.0)
[2025-07-03 07:03] LABS: Albumin Level 3.2 g/dL (3.5-5.1); Blood Urea Nitrogen 84 mg/dL (9-20); Calcium 9.0 mg/dL (8.4-10.2); Carbon Dioxide 33 mmol/L (22-30); Estimated CRCL calculation 53 ml/min; Estimated Glomerular Filt Rate 46; Glucose 195 mg/dL (65-110); Magnesium 2.2 mg/dL (1.6-2.3); Potassium 3.9 mmol/L (3.4-5.0); Sodium 135 mmol/L (137-145)
[2025-07-03 07:44] LABS: Anion Gap 3 mmol/L (4-12); Chloride 99 mmol/L (98-107)
[2025-07-03] MEDS: SODIUM CHLORIDE 1 GM TABLET PO (08:30)
[2025-07-03] MEDS: PANTOPRAZOLE 40 MG TABLET PO (08:31)
[2025-07-03] MEDS: INSULIN ASPART (*BKC) 100 UNITS/ML SUB-Q ×6 (08:31→20:59)
[2025-07-03] MEDS: FUROSEMIDE INJ 40 MG/4 ML VIAL 80 MG IV PUSH ×2 (08:31→18:05)
[2025-07-03] MEDS: RANOLAZINE 500 MG TAB.ER.12H PO ×2 (08:31→20:43)
--- NOTE | 2025-07-03 09:23 | P.PNIM_ITS ---
Progress Note: A&P Assessment and Plan (1) Hypertension: Qualifiers: Hypertension type: essential hypertension Qualified Code(s): I10 - Essential (primary) hypertension Code(s): I10 - Essential (primary) hypertension Status: Chronic (2) Acute exacerbation of CHF (congestive heart failure): Qualifiers: Heart failure type: diastolic Qualified Code(s): I50.33 - Acute on chronic diastolic (congestive) heart failure Code(s): I50.9 - Heart failure, unspecified Status: Acute (3) Atrial fibrillation: Qualifiers: Atrial fibrillation type: persistent (not longstanding) Qualified Code(s): I48.19 - Other persistent atrial fibrillation Code(s): I48.91 - Unspecified atrial fibrillation Status: Chronic (4) Hyponatremia: Code(s): E87.1 - Hypo-osmolality and hyponatremia Status: Acute (5) Morbid (severe) obesity due to excess calories: Code(s): E66.01 - Morbid (severe) obesity due to excess calories Status: Acute (6) JESSIKA (acute kidney injury): Code(s): N17.9 - Acute kidney failure, unspecified Status: Acute (7) Stage 3 chronic kidney disease: Code(s): N18.30 - Chronic kidney disease, stage 3 unspecified Status: Chronic (8) Acute hyperkalemia: Code(s): E87.5 - Hyperkalemia Status: Acute Plan 79-year-old male with a PMH CHF with grade 2 diastolic dysfunction, pulmonary hypertension, CAD status post CABG in 2018, paroxysmal atrial fibrillation, first-degree AV block, obesity, left bundle branch block, hyper and hypokalemia, chronic hyponatremia, history of renal cell carcinoma, history of prostate cancer, chronic pancytopenia, chronic debility, CKD stage 3, fracture of left inferior pubic ramus and left acetabulum fracture in 06/2025, 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 Acute SOB: Acute chf/volume overload Currently on room air Continue with IV Lasix 80 BID fluid restriction Strict I&O's Daily weight Compression stocking Jessika pre-existing CKD stage 3: Renal ultrasound unremarkable Potassium levels better Follow kidney function, improving History of chronic hyponatremia continue salt tablets, changed from BID to daily Renal consulted Urinary retention Simmons placed for urinary retention Hematuria resolving Simmons Dc'tanika. Void trial Hematuria Urology consulted, appreciate recommendations Clots in catheter 07/01-07/02, resolved. Could be due to irritation Held apixaban DC'd catheter 07/03. Void trial today History of atrial fibrillation with slow ventricular response: Continue with tele monitoring No beta-blockers Hold Eliquis for hematuria History of diabetes mellitus: Blood glucose checked t.i.d. a.c. and HS Continue with sliding scale insulin Add mealtime insulin 2<4 units TID with meals Lantus 10 units 07/02. Increase to 13 units today Recent hemoglobin 6.1 Constipation: 06/28 KUB no acute findings Code status: Full DVT prophylaxis: Eliquis P.T./OT Disposition: [place] [facility] bed Time Spent With Patient Time: 57 minutes Subjective Date/time seen: 07/03/25 09:23 Interval history: Creatinine continues to improve, down to 1.47 Void trial today, simmons removed Blood sugars improving IV access replaced. Swelling improving with IV diuresis Review of Systems Review of Systems: All systems reviewed & are unremarkable except as noted in HPI and below Exam Narrative: General appearance: Well-developed Skin: 4+ edema bilaterally, compression stocking on Head: Normocephalic, nontraumatic Eyes: Clear conjunctiva ENT: Dry oral cavity and lips Neck: Supple, nontender Chest and respiratory: Airway patent, no respiratory distress,basilar rales bilaterally Heart: Bradycardia Abdomen: Soft, nontender, no organomegaly, quiet bowel sounds Vascular: Normal peripheral pulses, normal capillary refill. 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 Simmons removed Objective Data Vital Signs Vital Signs: Vital Signs - 24 hr 07/02/25 12:00 07/02/25 14:00 07/02/25 16:00 Temperature 98.8 F Pulse Rate 71 68 76 Respiratory Rate 16 Blood Pressure 107/50 L Pulse Oximetry 100 Oxygen Delivery 07/02/25 20:00 07/02/25 20:00 07/02/25 23:07 Temperature 97.9 F Pulse Rate 69 67 Respiratory Rate 18 Blood Pressure 113/43 L Pulse Oximetry 100 Oxygen Delivery Room Air 07/03/25 00:00 07/03/25 04:00 07/03/25 06:00 Temperature 97.5 F L Pulse Rate 81 61 63 Respiratory Rate 20 Blood Pressure 109/53 L Pulse Oximetry 100 Oxygen Delivery Intake/Output Intake/Output: Intake & Output 06/30/25 07/01/25 07/02/25 07/03/25 23:59 23:59 23:59 23:59 Intake Total 1448 1070 1038 240 Output Total 3520 2800 0183 600 [facility] -[phone] Meds/Results Medications: Active Medications Generic Name Dose Route Start Last Admin Trade Name Freq PRN Reason Stop Dose Admin Acetaminophen 650 mg 06/26/25 19:39 07/03/25 02:34 Acetaminophen 325 Mg Tablet PO 650 mg Q4H PRN Administration Mild Pain (1-3) or Fever Apixaban 5 mg 06/27/25 02:15 07/01/25 08:14 Apixaban 5 Mg Tablet PO 5 mg On Hold: 07/01/25 15:16 Q12HR YUNIOR Administration Dextrose 12.5 gm 06/26/25 21:20 Dextrose 50% 25 Gm/50 Ml Syringe IV PUSH PRN PRN Hypoglycemia Protocol Furosemide 80 mg 06/30/25 17:00 07/03/25 08:31 Furosemide Inj 40 Mg/4 Ml Vial IV PUSH 80 mg BID YUNIOR Administration Glucose 15 gm 06/26/25 21:20 Glucose Oral Gel 15 Gm Of Glucse In 37.5 Gm Tube PO PRN PRN Hypoglycemia Protocol Dextrose 1,000 mls @ 100 mls/hr 06/26/25 21:20 Dextrose 5% 1,000 Ml IVPB PRN PRN Hypoglycemia Protocol Insulin Aspart 2 - 5 units 06/27/25 08:00 07/03/25 08:29 Insulin Aspart (*Bkc) 100 Units/Ml SUB-Q Not Given TIDWM YUNIOR Protocol Insulin Aspart 1 - 2 units 06/27/25 21:00 07/02/25 21:34 Insulin Aspart (*Bkc) 100 Units/Ml SUB-Q 1 units HS YUNIOR Administration Protocol Insulin Aspart 2 units 07/02/25 17:00 07/03/25 08:31 Insulin Aspart (*Bkc) 100 Units/Ml SUB-Q 2 units TIDWM YUNIOR Administration Melatonin 3 mg 06/27/25 02:15 07/02/25 21:36 Melatonin 3 Mg Tablet PO 3 mg HS YUNIOR Administration Pantoprazole Sodium 40 mg 06/27/25 09:00 07/03/25 08:31 Pantoprazole 40 Mg Tablet PO 40 mg QAM YUNIOR Administration Polyethylene Glycol 17 gm 06/29/25 17:00 07/03/25 08:31 Polyethylene Glycol 3350 17 Gm Powd.Pack PO 17 gm BID YUNIOR Administration Polysaccharide Iron Complex 150 mg 06/27/25 08:00 07/03/25 08:31 Polysaccharide Iron Complex 150 Mg Capsule PO 150 mg DAILY@0800 YUNIOR Administration Ranolazine 500 mg 06/27/25 02:20 07/03/25 08:31 Ranolazine 500 Mg Tab.Er.12h PO 500 mg Q12HR YUNIOR Administration Senna 8.6 mg 06/29/25 10:02 Sennosides 8.6 Mg Tablet PO BID PRN Constipation Senna 8.6 mg 07/01/25 21:00 07/02/25 21:36 Sennosides 8.6 Mg Tablet PO 8.6 mg HS YUNIOR Administration Sodium Chloride 1 gm 06/27/25 02:15 07/03/25 08:30 Sodium Chloride 1 Gm Tablet PO 1 gm BID YUNIOR Administration Tamsulosin HCl 0.4 mg 06/27/25 18:00 07/02/25 17:55 Tamsulosin Hcl 0.4 Mg Capsule PO 0.4 mg QPM YUNIOR Administration Radiology Results: ITS Impressions Chest X-Ray 06/26/25 17:49 Impression: Mild CHF Renal Ultrasound 06/27/25 12:21 IMPRESSION: 1. Normal right kidney and suboptimally visualized but normal-appearing left kidney, both with no hydronephrosis. 2. Small amount of ascites in the pelvis. Abdomen X-Ray 06/28/25 14:47 IMPRESSION: 1. No acute findings. 2. Volume of stool not significantly increased. Labs Labs: Laboratory Results - last 24 hr 07/02/25 07/02/25 07/02/25 11:55 17:40 20:09 WBC RBC Hgb Hct MCV MCH MCHC RDW Plt Count MPV Immature Gran % (Auto) Neut % (Auto) Lymph % (Auto) [place] % (Auto) Eos % (Auto) Baso % (Auto) Lymph # (Auto) [place] # (Auto) Eos # (Auto) Baso # (Auto) Abs Immat Gran (auto) Absolute Neuts (auto) Absolute Nucleated RBC Nucleated RBC % Sodium Potassium Chloride Carbon Dioxide Anion Gap BUN Creatinine Estim Creat Clear Calc Estimated GFR Glucose POC Capillary Glucose 224 H 281 H 297 H Calcium Phosphorus Magnesium Albumin 07/03/25 07/03/25 06:26 07:40 WBC 2.8 L RBC 2.54 L Hgb 8.3 L Hct 25.6 L MCV 100.8 H MCH 32.7 MCHC 32.4 RDW 15.4 H Plt Count 101 L MPV 9.8 Immature Gran % (Auto) 0.4 Neut % (Auto) 73.5 H Lymph % (Auto) 10.2 L [place] % (Auto) 12.4 H Eos % (Auto) 2.8 Baso % (Auto) 0.7 Lymph # (Auto) 0.29 L [place] # (Auto) 0.4 Eos # (Auto) 0.1 Baso # (Auto) 0.0 Abs Immat Gran (auto) 0.01 Absolute Neuts (auto) 2.1 Absolute Nucleated RBC 0.000 Nucleated RBC % 0.0 Sodium 135 L Potassium 3.9 Chloride 99 Carbon Dioxide 33 H Anion Gap 3 L BUN 84 H Creatinine 1.47 H Estim Creat Clear Calc 53 Estimated GFR 46 L Glucose 195 H POC Capillary Glucose 185 H Calcium 9.0 Phosphorus 2.8 Magnesium 2.2 Albumin 3.2 L Quality VTE Prophylaxis VTE prophylaxis: mechanical ordered Hospitalist [facility] Advance Care Plan I have confirmed that the patient's Advanced Care Plan is present, code status is documented, or surrogate decision maker is listed in patient medical record.: Yes Medication Reconciliation The patient is not eligible for med reconciliation; the patient is in a emergent medical situation where delaying treatment would jeopardize the patients health.: Yes
--- NOTE | 2025-07-03 11:02 | P.PNNP_ITS ---
Progress Note: A&P Assessment and Plan (1) Acute kidney injury: Code(s): N17.9 - Acute kidney failure, unspecified Status: Acute Assessment and Plan: * improving (if not back to baseline) * as noted on admission - creatinine of 2.96mg/dL * etiology not clear -- suspect: * CHF exacerbation * variation of cardio-renal syndrome (diminished ECF) * renal venous hypertension * element of intravascular volume depletion (despite clear evidence of overload) * relative anemia * relative hypotension * other(?) * evaluation noted to date * renal u/s without obstruction * urine electrolytes prerenal (by FeUrea) * urine eosinophils 0.01 * moderate proteinuria * CPK low * improvement noted with diuresis: * possible variation of nephrosarca relieved by diuresis * alternatively, he could have a component of renal venous hypertension (also relieved by diuretics) * follow trend of repeat labs and UOP (2) Stage 3 chronic kidney disease: Code(s): N18.30 - Chronic kidney disease, stage 3 unspecified Status: Chronic Assessment and Plan: * baseline creatinine runs around 1.2 - 1.6mg/dl for the last few years * this causes this to fluctuate between CKD stage 3A and 3B * presumably due to diabetes, hypertension, vascular disease (CAD + CHF + hyperlipidemia), MARIANNA, obesity, and age-related disease (3) Acute exacerbation of CHF (congestive heart failure): Qualifiers: Heart failure type: diastolic Qualified Code(s): I50.33 - Acute on chronic diastolic (congestive) heart failure Code(s): I50.9 - Heart failure, unspecified Status: Acute Assessment and Plan: * slow improvement * based on evidence to date: * significant LE edema/swelling * bibasilar crackles on respiratory exam * CXR with mild CHF * elevated proBNP * recent Echo (on 04/15/25) noted: * left ventricular systolic function is normal, estimated at 55 - 60% * left ventricular diastolic function is grade II diastolic * moderate aortic valve calcification * mild aortic valve stenosis * mild mitral valve regurgitation * moderate to severe tricuspid valve regurgitation * severe pulmonary hypertension, estimated pulmonary arterial systolic pressure is 72 mmHg * mild pulmonic regurgitation * follow daily weights * almost 6L negative since admission... * ongoing diuresis * switch to oral diuretics at discharge * rising CO2 suggestive of contraction alkalosis... * monitor I/Os (4) Anasarca: Code(s): R60.1 - Generalized edema Status: Acute Assessment and Plan: * significant lower extremity edema noted * suspect a chronic component to LE edema * likely due to pulmonary hypertension and tricuspid regurgitation as noted by last Echo * on IV diuretic therapy * transition to oral diuretics on discharge * follow I/Os and daily weights * continue fluid restriction (5) Atrial fibrillation: Qualifiers: Atrial fibrillation type: persistent (not longstanding) Qualified Code(s): I48.19 - Other persistent atrial fibrillation Code(s): I48.91 - Unspecified atrial fibrillation Status: Chronic Assessment and Plan: * known history * rate control strategy * on anticoagulation (6) Hyponatremia: Code(s): E87.1 - Hypo-osmolality and hyponatremia Status: Acute Assessment and Plan: * stable if not improving * acute on chronic * sodium has been normal at times but seems to average ~ 130 -136mmol/L in the last few years * suspect acute drop due to volume overload/hypervolemia * on diuretics * on fluid restriction * evaluation to date noted: * TSH good * cortisol okay * SPEP without M-spike (immunofixation negative as well) * UPEP with M-spike but urine immunofixation reports presence of monoclonal protein is unclear at this time * serum/urine osmolality pending * already on salt tabs (prior to admission) (7) Generalized weakness: Code(s): R53.1 - Weakness Status: Acute Assessment and Plan: * presumably due to previous falls, orthopedic injuries, recent hospitalization, and deconditioning * s/p stay at [facility] with discharge on 06/20 * PT/OT as tolerated * need placement again(?) * was just recently discharged from [facility] (on 06/20) (8) Diabetes mellitus with neuropathy: Qualifiers: Diabetes mellitus correction insulin use: with correction use Diabetes mellitus type: type 2 Qualified Code(s): E11.40 - Type 2 diabetes mellitus with diabetic neuropathy, unspecified; Z79.4 - half-way (current) use of insulin Code(s): E11.40 - Type 2 diabetes mellitus with diabetic neuropathy, unspecified Status: Chronic Assessment and Plan: * follow accu-cheks * glycemic control per hospitalist Not much else to add -- will continue to follow from a distance. L Subjective Date/time seen: 07/03/25 11:02 Interval history: Follow-up for acute kidney injury/acute renal failure on chronic kidney disease. Renal function/creatinine better if not back to baseline with good urine output noted with ongoing IV diuretic therapy as well as improvement in LE swelling/edema; voiding trial today (simmons catheter removed earlier this AM); no apparent distress noted when seen; no othe issues/events overnight or earlier this morning. Exam 2 Narrative: General: elderly but WD/WN male in NAD Heart: normal S1 and S2; no rub Lungs: coarse and decreased at bases Abdomen: soft, nontender, nondistended, positive bowel sounds Extremities: no cyanosis or clubbing; 1 - 2+ edema Skin: warm and dry Objective Data Vital Signs Vital Signs: Vital Signs Temp Pulse Resp BP Pulse Ox O2 Del Method 07/03/25 08:00 62 07/03/25 06:00 97.5 F L 63 20 109/53 L 100 07/03/25 04:00 61 07/03/25 00:00 81 07/02/25 23:07 97.9 F 67 18 113/43 L 100 07/02/25 20:00 69 07/02/25 20:00 Room Air 07/02/25 16:00 76 Intake/Output Intake/Output: Intake & Output 06/30/25 07/01/25 07/02/25 07/03/25 23:59 23:59 23:59 23:59 Intake Total 1448 1070 1038 360 Output Total 3520 2800 3125 900 Balance -2072 -1730 -2087 -540 Meds/Results Medications: Active Medications Generic Name Dose Route Start Last Admin Trade Name Freq PRN Reason Stop Dose Admin Acetaminophen 650 mg 06/26/25 19:39 07/03/25 02:34 Acetaminophen 325 Mg Tablet PO 650 mg Q4H PRN Administration Mild Pain (1-3) or Fever Apixaban 5 mg 06/27/25 02:15 07/01/25 08:14 Apixaban 5 Mg Tablet PO 5 mg On Hold: 07/01/25 15:16 Q12HR YUNIOR Administration Dextrose 12.5 gm 06/26/25 21:20 Dextrose 50% 25 Gm/50 Ml Syringe IV PUSH PRN PRN Hypoglycemia Protocol Furosemide 80 mg 06/30/25 17:00 07/03/25 08:31 Furosemide Inj 40 Mg/4 Ml Vial IV PUSH 80 mg BID YUNIOR Administration Glucose 15 gm 06/26/25 21:20 Glucose Oral Gel 15 Gm Of Glucse In 37.5 Gm Tube PO PRN PRN Hypoglycemia Protocol Dextrose 1,000 mls @ 100 mls/hr 06/26/25 21:20 Dextrose 5% 1,000 Ml IVPB PRN PRN Hypoglycemia Protocol Insulin Aspart 2 - 5 units 06/27/25 08:00 07/03/25 11:52 Insulin Aspart (*Bkc) 100 Units/Ml SUB-Q 3 units TIDWM YUNIOR Administration Protocol Insulin Aspart 1 - 2 units 06/27/25 21:00 07/02/25 21:34 Insulin Aspart (*Bkc) 100 Units/Ml SUB-Q 1 units HS YUNIOR Administration Protocol Insulin Aspart 4 units 07/03/25 12:00 07/03/25 11:52 Insulin Aspart (*Bkc) 100 Units/Ml SUB-Q 4 units TIDWM YUNIOR Administration Insulin Glargine 13 units 07/03/25 10:35 07/03/25 11:51 Insulin Glargine (*Bkc) 100 Units/Ml SUB-Q 13 units DAILY YUNIOR Administration Melatonin 3 mg 06/27/25 02:15 07/02/25 21:36 Melatonin 3 Mg Tablet PO 3 mg HS YUNIOR Administration Pantoprazole Sodium 40 mg 06/27/25 09:00 07/03/25 08:31 Pantoprazole 40 Mg Tablet PO 40 mg QAM YUNIOR Administration Polyethylene Glycol 17 gm 06/29/25 17:00 07/03/25 08:31 Polyethylene Glycol 3350 17 Gm Powd.Pack PO 17 gm BID YUNIOR Administration Polysaccharide Iron Complex 150 mg 06/27/25 08:00 07/03/25 08:31 Polysaccharide Iron Complex 150 Mg Capsule PO 150 mg DAILY@0800 YUNIOR Administration Ranolazine 500 mg 06/27/25 02:20 07/03/25 08:31 Ranolazine 500 Mg Tab.Er.12h PO 500 mg Q12HR YUNIOR Administration Senna 8.6 mg 06/29/25 10:02 Sennosides 8.6 Mg Tablet PO BID PRN Constipation Senna 8.6 mg 07/01/25 21:00 07/02/25 21:36 Sennosides 8.6 Mg Tablet PO 8.6 mg HS YUNIOR Administration Sodium Chloride 1 gm 07/04/25 09:00 Sodium Chloride 1 Gm Tablet PO DAILY [facility] Tamsulosin HCl 0.4 mg 06/27/25 18:00 07/02/25 17:55 Tamsulosin Hcl 0.4 Mg Capsule PO 0.4 mg QPM YUNIOR Administration Radiology Results: ITS Impressions Chest X-Ray 06/26/25 17:49 Impression: Mild CHF Renal Ultrasound 06/27/25 12:21 IMPRESSION: 1. Normal right kidney and suboptimally visualized but normal-appearing left kidney, both with no hydronephrosis. 2. Small amount of ascites in the pelvis. Abdomen X-Ray 06/28/25 14:47 IMPRESSION: 1. No acute findings. 2. Volume of stool not significantly increased. Labs Labs: Laboratory Tests 07/03/25 06:26 07/03/25 06:26 Calcium 9.0 Phosphorus 2.8 Magnesium 2.2 Albumin 3.2 L
--- NOTE | 2025-07-03 11:02 | PM.PNNEP ---
Progress Note: A&P Assessment and Plan (1) Acute kidney injury: Code(s): N17.9 - Acute kidney failure, unspecified Status: Acute Assessment and Plan: improving (if not back to baseline) as noted on admission - creatinine of 2.96mg/dL etiology not clear -- suspect: CHF exacerbation variation of cardio-renal syndrome (diminished ECF) renal venous hypertension element of intravascular volume depletion (despite clear evidence of overload) relative anemia relative hypotension other(?) evaluation noted to date renal u/s without obstruction urine electrolytes prerenal (by FeUrea) urine eosinophils 0.01 moderate proteinuria CPK low improvement noted with diuresis: possible variation of nephrosarca relieved by diuresis alternatively, he could have a component of renal venous hypertension (also relieved by diuretics) follow trend of repeat labs and UOP (2) Stage 3 chronic kidney disease: Code(s): N18.30 - Chronic kidney disease, stage 3 unspecified Status: Chronic Assessment and Plan: baseline creatinine runs around 1.2 - 1.6mg/dl for the last few years this causes this to fluctuate between CKD stage 3A and 3B presumably due to diabetes, hypertension, vascular disease (CAD + CHF + hyperlipidemia), MARIANNA, obesity, and age-related disease (3) Acute exacerbation of CHF (congestive heart failure): Qualifiers: Heart failure type: diastolic Qualified Code(s): I50.33 - Acute on chronic diastolic (congestive) heart failure Code(s): I50.9 - Heart failure, unspecified Status: Acute Assessment and Plan: slow improvement based on evidence to date: significant LE edema/swelling bibasilar crackles on respiratory exam CXR with mild CHF elevated proBNP recent Echo (on 04/15/25) noted: left ventricular systolic function is normal, estimated at 55 - 60% left ventricular diastolic function is grade II diastolic moderate aortic valve calcification mild aortic valve stenosis mild mitral valve regurgitation moderate to severe tricuspid valve regurgitation severe pulmonary hypertension, estimated pulmonary arterial systolic pressure is 72 mmHg mild pulmonic regurgitation follow daily weights almost 6L negative since admission... ongoing diuresis switch to oral diuretics at discharge rising CO2 suggestive of contraction alkalosis... monitor I/Os (4) Anasarca: Code(s): R60.1 - Generalized edema Status: Acute Assessment and Plan: significant lower extremity edema noted suspect a chronic component to LE edema likely due to pulmonary hypertension and tricuspid regurgitation as noted by last Echo on IV diuretic therapy transition to oral diuretics on discharge follow I/Os and daily weights continue fluid restriction (5) Atrial fibrillation: Qualifiers: Atrial fibrillation type: persistent (not longstanding) Qualified Code(s): I48.19 - Other persistent atrial fibrillation Code(s): I48.91 - Unspecified atrial fibrillation Status: Chronic Assessment and Plan: known history rate control strategy on anticoagulation (6) Hyponatremia: Code(s): E87.1 - Hypo-osmolality and hyponatremia Status: Acute Assessment and Plan: stable if not improving acute on chronic sodium has been normal at times but seems to average ~ 130 -136mmol/L in the last few years suspect acute drop due to volume overload/hypervolemia on diuretics on fluid restriction evaluation to date noted: TSH good cortisol okay SPEP without M-spike (immunofixation negative as well) UPEP with M-spike but urine immunofixation reports presence of monoclonal protein is unclear at this time serum/urine osmolality pending already on salt tabs (prior to admission) (7) Generalized weakness: Code(s): R53.1 - Weakness Status: Acute Assessment and Plan: presumably due to previous falls, orthopedic injuries, recent hospitalization, and deconditioning s/p stay at [facility] with discharge on 06/20 PT/OT as tolerated need placement again(?) was just recently discharged from [facility] (on 06/20) (8) Diabetes mellitus with neuropathy: Qualifiers: 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 Subjective Date/time seen: 07/03/25 11:02 Interval history: Follow-up for acute kidney injury/acute renal failure on chronic kidney disease. Renal function/creatinine better if not back to baseline with good urine output noted with ongoing IV diuretic therapy as well as improvement in LE swelling/edema; voiding trial today (simmons catheter removed earlier this AM); no apparent distress noted when seen; no othe issues/events overnight or earlier this morning. Exam Narrative: General: elderly but WD/WN male in NAD Heart: normal S1 and S2; no rub Lungs: coarse and decreased at bases Abdomen: soft, nontender, nondistended, positive bowel sounds Extremities: no cyanosis or clubbing; 1 - 2+ edema Skin: warm and dry Objective Data Vital Signs Vital Signs: Vital Signs Temp Pulse Resp BP Pulse Ox O2 Del Method 07/03/25 08:00 62 07/03/25 06:00 97.5 F L 63 20 109/53 L 100 07/03/25 04:00 61 07/03/25 00:00 81 07/02/25 23:07 97.9 F 67 18 113/43 L 100 07/02/25 20:00 69 07/02/25 20:00 Room Air 07/02/25 16:00 76 Intake/Output Intake/Output: Intake & Output 06/30/25 07/01/25 07/02/25 07/03/25 23:59 23:59 23:59 23:59 Intake Total 1448 1070 1038 360 Output Total 3520 2800 3125 900 Balance -2072 -1730 -2087 -540 Meds/Results Medications: Active Medications Generic Name Dose Route Start Last Admin Trade Name Freq PRN Reason Stop Dose Admin Acetaminophen 650 mg 06/26/25 19:39 07/03/25 02:34 Acetaminophen 325 Mg Tablet PO 650 mg Q4H PRN Administration Mild Pain (1-3) or Fever Apixaban 5 mg 06/27/25 02:15 07/01/25 08:14 Apixaban 5 Mg Tablet PO 5 mg On Hold: 07/01/25 15:16 Q12HR YUNIOR Administration Dextrose 12.5 gm 06/26/25 21:20 Dextrose 50% 25 Gm/50 Ml Syringe IV PUSH PRN PRN Hypoglycemia Protocol Furosemide 80 mg 06/30/25 17:00 07/03/25 08:31 Furosemide Inj 40 Mg/4 Ml Vial IV PUSH 80 mg BID YUNIOR Administration Glucose 15 gm 06/26/25 21:20 Glucose Oral Gel 15 Gm Of Glucse In 37.5 Gm Tube PO PRN PRN Hypoglycemia Protocol Dextrose 1,000 mls @ 100 mls/hr 06/26/25 21:20 Dextrose 5% 1,000 Ml IVPB PRN PRN Hypoglycemia Protocol Insulin Aspart 2 - 5 units 06/27/25 08:00 07/03/25 11:52 Insulin Aspart (*Bkc) 100 Units/Ml SUB-Q 3 units TIDWM YUNIOR Administration Protocol Insulin Aspart 1 - 2 units 06/27/25 21:00 07/02/25 21:34 Insulin Aspart (*Bkc) 100 Units/Ml SUB-Q 1 units HS YUNIOR Administration Protocol Insulin Aspart 4 units 07/03/25 12:00 07/03/25 11:52 Insulin Aspart (*Bkc) 100 Units/Ml SUB-Q 4 units TIDWM YUNIOR Administration Insulin Glargine 13 units 07/03/25 10:35 07/03/25 11:51 Insulin Glargine (*Bkc) 100 Units/Ml SUB-Q 13 units DAILY YUNIOR Administration Melatonin 3 mg 06/27/25 02:15 07/02/25 21:36 Melatonin 3 Mg Tablet PO 3 mg HS YUNIOR Administration Pantoprazole Sodium 40 mg 06/27/25 09:00 07/03/25 08:31 Pantoprazole 40 Mg Tablet PO 40 mg QAM YUNIOR Administration Polyethylene Glycol 17 gm 06/29/25 17:00 07/03/25 08:31 Polyethylene Glycol 3350 17 Gm Powd.Pack PO 17 gm BID YUNIOR Administration Polysaccharide Iron Complex 150 mg 06/27/25 08:00 07/03/25 08:31 Polysaccharide Iron Complex 150 Mg Capsule PO 150 mg DAILY@0800 YUNIOR Administration Ranolazine 500 mg 06/27/25 02:20 07/03/25 08:31 Ranolazine 500 Mg Tab.Er.12h PO 500 mg Q12HR YUNIOR Administration Senna 8.6 mg 06/29/25 10:02 Sennosides 8.6 Mg Tablet PO BID PRN Constipation Senna 8.6 mg 07/01/25 21:00 07/02/25 21:36 Sennosides 8.6 Mg Tablet PO 8.6 mg HS YUNIOR Administration Sodium Chloride 1 gm 07/04/25 09:00 Sodium Chloride 1 Gm Tablet PO DAILY YUNIOR Tamsulosin HCl 0.4 mg 06/27/25 18:00 07/02/25 17:55 Tamsulosin Hcl 0.4 Mg Capsule PO 0.4 mg QPM YUNIOR Administration Radiology Results: ITS Impressions Chest X-Ray 06/26/25 17:49 Impression: Mild CHF Renal Ultrasound 06/27/25 12:21 IMPRESSION: 1. Normal right kidney and suboptimally visualized but normal-appearing left kidney, both with no hydronephrosis. 2. Small amount of ascites in the pelvis. Abdomen X-Ray 06/28/25 14:47 IMPRESSION: 1. No acute findings. 2. Volume of stool not significantly increased. Labs Labs: Laboratory Tests 07/03/25 06:26 07/03/25 06:26 Calcium 9.0 Phosphorus 2.8 Magnesium 2.2 Albumin 3.2 L
[2025-07-03] MEDS: INSULIN GLARGINE (*BKC) 100 UNITS/ML 13 UNITS SUB-Q (11:51)
--- NOTE | 2025-07-03 13:31 | P.DS_ITS ---
DS: Admitting Diagnosis Discharge Date 07/03/2025 DS: Summary Hospital Course Reason for hospitalization: Copied from [facility] 06/26: This is a pleasant 79-year-old male with a PMH CHF with grade 2 diastolic dysfunction, pulmonary hypertension, CAD status post CABG in 2018, paroxysmal atrial fibrillation, first-degree AV block, obesity, left bundle branch block, hyper and hypokalemia, chronic hyponatremia, history of renal cell carcinoma, history of prostate cancer, chronic pancytopenia, chronic debility, CKD stage 3, fracture of left inferior pubic ramus and left acetabulum fracture in 06/2025, 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 The patient presents with shortness of breath from home. He was recently discharged from [facility] for the above-stated left inferior pubic ramus fracture and acetabulum fracture on the left, no surgical intervention, conservative therapy and he was then [facility] on [facility]. He reports his shortness of breath started spontaneously around noon on 06/26/2025 the day of admission. Was lying around not really doing anything. He denies cough, chest pain, fever, sick contacts, recent travel, abdominal pain, diarrhea. He cannot tell me if he has gained weight he does not track it, he cannot tell me if he has more swelling in his legs because he does not look at them. He is obese. He reports he takes his medications regularly. He is worried about his potassium because he had a very low potassium prior, he is worried about his strength and wants to go back to rehab. He also reports the past few days he has been urinating very little. In the ER he was started on fluids but then these were quickly discontinued when the ER physician noticed he had pulmonary edema. He was given Tylenol 1000 mg p.o. x1. He is in atrial fibrillation with a slow response, saturating 97% on room air. He rest comfortably reports he still feels like blah because his breathing is not right. His laboratory evaluation reveals chronic pancytopenia however stable, INR 2.6, ABG with a pH 7.444, pCO2 36, PO2 88, bicarb 24.2 on room air. His sodium is 127 which is around his usual, potassium 5.1 just slightly elevated, BUN 99 and serum creatinine 2.96 with which is much higher than his baseline. BNP 2900. This is around his baseline. Urinalysis is normal, no cast, no blood, no wbc's. A chest x-ray reports mild CHF. I did review this myself and agree. 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 Acute SOB: Acute chf/volume overload Currently on room air Continue with IV Lasix 80 BID fluid restriction Strict I&O's Daily weight Compression stocking Oren I on pre-existing CKD stage 3: Renal ultrasound unremarkable Potassium levels better Follow kidney function, improving History of chronic hyponatremia continue salt tablets Renal consult Urinary retention Simmons placed for urinary retention Hematuria resolving Plan to remove simmons Hematuria Urology consulted, appreciate recommendations Clots in catheter this AM, irrigated. Urine still red, likely clearing up Could be due to irri History of atrial fibrillation with slow ventricular response: Continue with tele monitoring No beta-blockers Hold Eliquis for hematuria History of diabetes mellitus: Blood glucose checked t.i.d. a.c. and HS Continue with sliding scale insulin Add mealtime insulin 2 units TID with meals Lantus 10 units x1 Recent hemoglobin 6.1 Constipation: 06/28 KUB no acute findings Code status: Full DVT prophylaxis: Eliquis P.T./OT Disposition: Pending improvement Time Spent with Patient Time attestation: Total time spent providing and/or coordinating discharge services: DS: Data Data Completed and Pending Labs on day of discharge: Labs from last 24 hours 07/03/25 07/03/25 07/02/25 07:40 06:26 20:09 WBC 2.8 L RBC 2.54 L Hgb 8.3 L Hct 25.6 L MCV 100.8 H MCH 32.7 MCHC 32.4 RDW 15.4 H Plt Count 101 L MPV 9.8 Immature Gran % (Auto) 0.4 Neut % (Auto) 73.5 H Lymph % (Auto) 10.2 L [place] % (Auto) 12.4 H Eos % (Auto) 2.8 Baso % (Auto) 0.7 Lymph # (Auto) 0.29 L [place] # (Auto) 0.4 Eos # (Auto) 0.1 Baso # (Auto) 0.0 Abs Immat Gran (auto) 0.01 Absolute Neuts (auto) 2.1 Absolute Nucleated RBC 0.000 Nucleated RBC % 0.0 Sodium 135 L Potassium 3.9 Chloride 99 Carbon Dioxide 33 H Anion Gap 3 L BUN 84 H Creatinine 1.47 H Estim Creat Clear Calc 53 Estimated GFR 46 L Glucose 195 H POC Capillary Glucose 185 H 297 H Calcium 9.0 Phosphorus 2.8 Magnesium 2.2 Albumin 3.2 L 07/02/25 07/02/25 17:40 11:55 WBC RBC Hgb Hct MCV MCH MCHC RDW Plt Count MPV Immature Gran % (Auto) Neut % (Auto) Lymph % (Auto) [place] % (Auto) Eos % (Auto) Baso % (Auto) Lymph # (Auto) [place] # (Auto) Eos # (Auto) Baso # (Auto) Abs Immat Gran (auto) Absolute Neuts (auto) Absolute Nucleated RBC Nucleated RBC % Sodium Potassium Chloride Carbon Dioxide Anion Gap BUN Creatinine Estim Creat Clear Calc Estimated GFR Glucose POC Capillary Glucose 281 H 224 H Calcium Phosphorus Magnesium Albumin Preliminary micro results at discharge 06/26/25 18:50 Blood Culture - Preliminary Blood 06/26/25 18:50 Blood Culture - Preliminary Blood Discharge Plan Discharge Attending physician on discharge: Marycarmen Sherman Consulting providers: Faustino Hope; Marycarmen Sherman; Filiberto Castano Discharging Clinician: Marycarmen Sherman Patient Disposition: Home with Home Health Service Discharge Instructions: Per Care Coordination, patient to discharge with [employer] [facility] ( [phone]) for PT/OT and alf services. Please fax discharge instructions and medication sheets to [phone]. Patient Instructions: Antibiotic Form, Apixaban (By mouth), Heart Failure (DC) Patient Language: Hungarian Stand Alone Forms: General Discharge Information Follow-up/Referrals: Randy Borrero MD [Primary Care Provider, Family Practice] - 2 Weeks Discharge Medications: No Action Repatha SureClick 140 mg/mL pen injector 140 mg subcut [id number] Rx Instructions: 1ST AND 15TH OF MONTH polyethylene glycol 3350 [Miralax] 17 gram Powder In Packet 17 g PO QAM PRN (Reason: constipation) insulin glargine [Lantus U-100 Insulin] 100 unit/mL Solution 25 unit subcut Q12HR Qty: 10 0RF acetaminophen [Acetaminophen Extra Strength] 500 mg tablet 1,000 mg PO Q6H carvedilol 12.5 mg tablet 12.5 mg PO Q12H insulin aspart U-100 [Novolog FlexPen U-100 Insulin] 100 unit/mL (3 mL) insulin pen 1 sliding scale dose SUBCUT TID PRN (Reason: hyperglycemia) Rx Instructions: Pt injects 8-10 units if blood sugar is reading 200-220. isosorbide mononitrate 30 mg tablet extended release 24 hr 30 mg PO QAM metolazone 2.5 mg tablet 2.5 mg PO QAM Rx Instructions: Take at least 90 minutes prior to taking furosemide dose. spironolactone 25 mg tablet 25 mg PO QAM polysaccharide iron complex [Poly-Iron] 150 mg iron capsule 150 mg PO DAILY Qty: 90 1RF nitroglycerin 0.4 mg tablet, sublingual See Rx Instructions .ROUTE .COMPLEX Qty: 100 0RF Dose Instruction: DISSOLVE 1 TABLET UNDER THE TONGUE EVERY 5 MINUTES NEEDED FOR CHEST PAIN. TO BE TAKEN NO MORE THAN THREE TIMES DAILY Rx Instructions: DISSOLVE 1 TABLET UNDER THE TONGUE EVERY 5 MINUTES NEEDED FOR CHEST PAIN. TO BE TAKEN NO MORE THAN THREE TIMES DAILY (DME) FreeStyle [place] 3 Sensor Device See Rx Instructions .Route Qty: 1 5RF Rx Instructions: As directed tamsulosin 0.4 mg Capsule 0.4 mg PO QPM Qty: 30 0RF furosemide 20 mg Tablet 60 mg PO BIDWM 15 Days Qty: 90 0RF Eliquis 5 mg Tablet 5 mg PO Q12HR Qty: 60 0RF sodium chloride 1,000 mg tablet,soluble 1,000 mg PO BID Qty: 60 0RF melatonin 3 mg Tablet 3 mg PO HS Qty: 0 0RF pantoprazole 40 mg tablet,delayed release (DR/EC) 40 mg PO QAM Qty: 30 0RF ranolazine 500 mg tablet extended release 12 hr 500 mg PO Q12H Qty: 60 0RF Date of admission: 06/27/25 15:21 Primary Care Provider: Randy Borrero Admitting Provider: Tatum Wheeler Attending physician on admission: Tatum Wheeler Condition: Guarded Prognosis Hospitalist MIPS Heart Failure (Exclusion) Patient has history of Heart Transplant or Left Ventricular Assistive Device?: No IF YES, STOP HERE Heart Failure (Qualifier) Patient has current or prior documentation of LVEF less than or equal to 40%, or mod/servere depressed LVSF?: No IF NO, STOP HERE
[2025-07-03] MEDS: TAMSULOSIN HCL 0.4 MG CAPSULE PO (18:05)
[2025-07-03] MEDS: SENNOSIDES 8.6 MG TABLET PO (20:43)
[2025-07-03] MEDS: MELATONIN 3 MG TABLET PO (20:43)
[2025-07-04] VITALS (9 sets, daily range): BP systolic 110–122; BP diastolic 44–60; PULSE 64–76; RESP 16–20; TEMP 36.3–36.5; O2SAT 98–100
[2025-07-04 06:38] LABS: Hematocrit 25.4 % (42.0-52.0); Hemoglobin 8.0 g/dL (14.0-18.0); Immature Granulocyte Percent A 0.7 % (0-0.5); Immature Platelet Fraction Pct 1.9 % (0.9-11.2); Lymphocytes Absolute Auto 0.28 K/mm3 (0.9-3.2); Mean Corpuscular HGB Conc 31.5 g/dl (32-36); Mean Corpuscular Hemoglobin 31.9 pg (26-34); Mean Corpuscular Volume 101.2 fl (80-100); Nucleated Red Blood Cells Absolute Auto 0.000 K/mm3 (0.0-0.012); Nucleated Red Blood Cells Perc 0.0 % (0.0-0.2); Platelet Count Result 101 k/mm3 (150-375); Red Blood Count 2.51 M/mm3 (4.6-6.20); White Blood Count 2.8 K/mm3 (4.5-10.0)
[2025-07-04 07:09] LABS: Albumin Level 3.0 g/dL (3.5-5.1); Anion Gap 5 mmol/L (4-12); Blood Urea Nitrogen 75 mg/dL (9-20); Calcium 8.8 mg/dL (8.4-10.2); Carbon Dioxide 34 mmol/L (22-30); Chloride 99 mmol/L (98-107); Estimated CRCL calculation 54 ml/min; Estimated Glomerular Filt Rate 48; Glucose 225 mg/dL (65-110); Magnesium 2.1 mg/dL (1.6-2.3); Potassium 4.0 mmol/L (3.4-5.0); Sodium 138 mmol/L (137-145)
[2025-07-04] MEDS: PANTOPRAZOLE 40 MG TABLET PO (08:29)
[2025-07-04] MEDS: SODIUM CHLORIDE 1 GM TABLET PO (08:29)
[2025-07-04] MEDS: FUROSEMIDE INJ 40 MG/4 ML VIAL 80 MG IV PUSH ×2 (08:29→17:07)
[2025-07-04] MEDS: RANOLAZINE 500 MG TAB.ER.12H PO ×2 (08:29→20:03)
[2025-07-04] MEDS: INSULIN ASPART (*BKC) 100 UNITS/ML SUB-Q ×6 (08:32→22:21)
[2025-07-04] MEDS: INSULIN GLARGINE (*BKC) 100 UNITS/ML 13 UNITS SUB-Q (08:33)
[2025-07-04 08:56] LABS: Iron 64 ug/dL (49-181)
[2025-07-04 09:05] LABS: Percent Iron Saturation 18 % (20-50)
[2025-07-04 09:38] LABS: Ferritin 96.30 ng/mL (11.1-264)
[2025-07-04] MEDS: ACETAMINOPHEN 325 MG TABLET 650 MG PO (10:28)
--- NOTE | 2025-07-04 13:57 | WPDUROPN2 ---
Progress Note: A&P Assessment and Plan (1) Urinary retention: Code(s): R33.9 - Retention of urine, unspecified Status: Acute (2) Hematuria: Qualifiers: Hematuria type: gross Qualified Code(s): R31.0 - Gross hematuria Code(s): R31.9 - Hematuria, unspecified Status: Acute Plan Pt is a 79 year old M on Eliquis with Hx of RCC, prostate cancer, BPH presenting with acute urinary retention s/p Valenzuela catheter placement with associated gross hematuria now resolved and s/p successful catheter removal and void trial 07/03/2025. - S/p Valenzuela catheter removal; currently voiding without issue - Creatinine normalized - Continue tamsulosin 0.4 mg QD - Continue daily bowel regimen to minimize constipation - Recommend scrotal support with jockstrap to minimize penoscrotal edema - Pt to follow up outpatient for continued management of prostate cancer, RCC. Does have Hx of hematuria and possible UTI (no culture) that was not previously worked up; consider CTU and cysto on outpatient basis. Urology to follow peripherally, please call with further questions Subjective Subjective Date/Time Seen: 07/04/25 13:57 Interval history: NAEO; pt resting comfortably in bed. States he has been voiding without issue since his Valenzuela catheter was removed. Exam Const: General: comfortable and no acute distress Resp: Effort & Inspection: normal respiratory effort : Other: Significant penile and scrotal edema Skin: General skin exam: normal color Neuro: Speech: normal speech Extrem: General: edema Objective Data Vital Signs Vital Signs: Vital Signs - 24 hr 07/03/25 14:00 07/03/25 16:00 07/03/25 20:05 Temperature 36.2 C L Pulse Rate 71 68 71 Respiratory Rate 18 Blood Pressure 125/50 L Pulse Oximetry 100 Oxygen Delivery 07/03/25 20:47 07/04/25 00:00 07/04/25 04:00 Temperature 36.4 C Pulse Rate 75 67 64 Respiratory Rate 16 Blood Pressure 120/48 L Pulse Oximetry 100 Oxygen Delivery 07/04/25 05:35 07/04/25 08:00 07/04/25 08:00 Temperature 36.3 C L Pulse Rate 65 68 Respiratory Rate 16 Blood Pressure 122/44 L Pulse Oximetry 98 98 Oxygen Delivery Room Air 07/04/25 12:00 Temperature Pulse Rate 68 Respiratory Rate Blood Pressure Pulse Oximetry Oxygen Delivery Intake/Output Intake/Output: Intake & Output 07/01/25 07/02/25 07/03/25 07/04/25 23:59 23:59 23:59 23:59 Intake Total 1070 1038 940 390 Output Total 2800 9328 3130 598 [facility] -[phone] Meds/Results Medications: Active Medications Generic Name Dose Route Start Last Admin Trade Name Freq PRN Reason Stop Dose Admin Acetaminophen 650 mg 06/26/25 19:39 07/04/25 10:28 Acetaminophen 325 Mg Tablet PO 650 mg Q4H PRN Administration Mild Pain (1-3) or Fever Apixaban 5 mg 06/27/25 02:15 07/01/25 08:14 Apixaban 5 Mg Tablet PO 5 mg On Hold: 07/01/25 15:16 Q12HR YUNIOR Administration Dextrose 12.5 gm 06/26/25 21:20 Dextrose 50% 25 Gm/50 Ml Syringe IV PUSH PRN PRN Hypoglycemia Protocol Furosemide 80 mg 06/30/25 17:00 07/04/25 08:29 Furosemide Inj 40 Mg/4 Ml Vial IV PUSH 80 mg BID YUNIOR Administration Glucose 15 gm 06/26/25 21:20 Glucose Oral Gel 15 Gm Of Glucse In 37.5 Gm Tube PO PRN PRN Hypoglycemia Protocol Dextrose 1,000 mls @ 100 mls/hr 06/26/25 21:20 Dextrose 5% 1,000 Ml IVPB PRN PRN Hypoglycemia Protocol Insulin Aspart 2 - 5 units 06/27/25 08:00 07/04/25 11:43 Insulin Aspart (*Bkc) 100 Units/Ml SUB-Q 3 units TIDWM YUNIOR Administration Protocol Insulin Aspart 1 - 2 units 06/27/25 21:00 07/03/25 20:59 Insulin Aspart (*Bkc) 100 Units/Ml SUB-Q 1 units HS YUNIOR Administration Protocol Insulin Aspart 4 units 07/03/25 12:00 07/04/25 11:44 Insulin Aspart (*Bkc) 100 Units/Ml SUB-Q 4 units TIDWM YUNIOR Administration Insulin Glargine 13 units 07/03/25 10:35 07/04/25 08:33 Insulin Glargine (*Bkc) 100 Units/Ml SUB-Q 13 units DAILY YUNIOR Administration Melatonin 3 mg 06/27/25 02:15 07/03/25 20:43 Melatonin 3 Mg Tablet PO 3 mg HS YUNIOR Administration Pantoprazole Sodium 40 mg 06/27/25 09:00 07/04/25 08:29 Pantoprazole 40 Mg Tablet PO 40 mg QAM YUNIOR Administration Polyethylene Glycol 17 gm 06/29/25 17:00 07/04/25 08:30 Polyethylene Glycol 3350 17 Gm Powd.Pack PO 17 gm BID YUNIOR Administration Polysaccharide Iron Complex 150 mg 06/27/25 08:00 07/04/25 08:29 Polysaccharide Iron Complex 150 Mg Capsule PO 150 mg DAILY@0800 YUNIOR Administration Ranolazine 500 mg 06/27/25 02:20 07/04/25 08:29 Ranolazine 500 Mg Tab.Er.12h PO 500 mg Q12HR YUNIOR Administration Senna 8.6 mg 06/29/25 10:02 Sennosides 8.6 Mg Tablet PO BID PRN Constipation Senna 8.6 mg 07/01/25 21:00 07/03/25 20:43 Sennosides 8.6 Mg Tablet PO 8.6 mg HS YUNIOR Administration Sodium Chloride 1 gm 07/04/25 09:00 07/04/25 08:29 Sodium Chloride 1 Gm Tablet PO 1 gm DAILY YUNIOR Administration Tamsulosin HCl 0.4 mg 06/27/25 18:00 07/03/25 18:05 Tamsulosin Hcl 0.4 Mg Capsule PO 0.4 mg QPM YUNIOR Administration Radiology Results: ITS Impressions Chest X-Ray 06/26/25 17:49 Impression: Mild CHF Renal Ultrasound 06/27/25 12:21 IMPRESSION: 1. Normal right kidney and suboptimally visualized but normal-appearing left kidney, both with no hydronephrosis. 2. Small amount of ascites in the pelvis. Abdomen X-Ray 06/28/25 14:47 IMPRESSION: 1. No acute findings. 2. Volume of stool not significantly increased. Labs Labs: Laboratory Results - last 24 hr 07/01/25 07/01/25 07/03/25 07:46 11:46 16:36 WBC RBC Hgb Hct MCV MCH MCHC RDW Plt Count MPV Immature Gran % (Auto) Neut % (Auto) Lymph % (Auto) [place] % (Auto) Eos % (Auto) Baso % (Auto) Lymph # (Auto) [place] # (Auto) Eos # (Auto) Baso # (Auto) Abs Immat Gran (auto) Absolute Neuts (auto) Absolute Nucleated RBC Nucleated RBC % % Immature Plt Fraction Sodium Potassium Chloride Carbon Dioxide Anion Gap BUN Creatinine Estim Creat Clear Calc Estimated GFR Glucose POC Capillary Glucose 195 H 243 H 292 H Calcium Phosphorus Magnesium Iron TIBC % Saturation Ferritin Albumin 07/03/25 07/04/25 07/04/25 20:51 06:18 08:03 WBC 2.8 L RBC 2.51 L Hgb 8.0 L Hct 25.4 L MCV 101.2 H MCH 31.9 MCHC 31.5 L RDW 15.5 H Plt Count 101 L MPV 9.7 Immature Gran % (Auto) 0.7 H Neut % (Auto) 71.7 Lymph % (Auto) 9.9 L [place] % (Auto) 14.5 H Eos % (Auto) 2.8 Baso % (Auto) 0.4 Lymph # (Auto) 0.28 L [place] # (Auto) 0.4 Eos # (Auto) 0.1 Baso # (Auto) 0.0 Abs Immat Gran (auto) 0.02 Absolute Neuts (auto) 2.0 Absolute Nucleated RBC 0.000 Nucleated RBC % 0.0 % Immature Plt Fraction 1.9 Sodium 138 Potassium 4.0 Chloride 99 Carbon Dioxide 34 H Anion Gap 5 BUN 75 H Creatinine 1.43 H Estim Creat Clear Calc 54 Estimated GFR 48 L Glucose 225 H POC Capillary Glucose 271 H 194 H Calcium 8.8 Phosphorus 2.7 Magnesium 2.1 Iron 64 TIBC 363 % Saturation 18 L Ferritin 96.30 Albumin 3.0 L 07/04/25 11:12 WBC RBC Hgb Hct MCV MCH MCHC RDW Plt Count MPV Immature Gran % (Auto) Neut % (Auto) Lymph % (Auto) [place] % (Auto) Eos % (Auto) Baso % (Auto) Lymph # (Auto) [place] # (Auto) Eos # (Auto) Baso # (Auto) Abs Immat Gran (auto) Absolute Neuts (auto) Absolute Nucleated RBC Nucleated RBC % % Immature Plt Fraction Sodium Potassium Chloride Carbon Dioxide Anion Gap BUN Creatinine Estim Creat Clear Calc Estimated GFR Glucose POC Capillary Glucose 290 H Calcium Phosphorus Magnesium Iron TIBC % Saturation Ferritin Albumin
--- NOTE | 2025-07-04 14:04 | P.PNIM_ITS ---
Progress Note: A&P Assessment and Plan (1) Hypertension: Qualifiers: Hypertension type: essential hypertension Qualified Code(s): I10 - Essential (primary) hypertension Code(s): I10 - Essential (primary) hypertension Status: Chronic (2) Acute exacerbation of CHF (congestive heart failure): Qualifiers: Heart failure type: diastolic Qualified Code(s): I50.33 - Acute on chronic diastolic (congestive) heart failure Code(s): I50.9 - Heart failure, unspecified Status: Acute (3) Atrial fibrillation: Qualifiers: Atrial fibrillation type: persistent (not longstanding) Qualified Code(s): I48.19 - Other persistent atrial fibrillation Code(s): I48.91 - Unspecified atrial fibrillation Status: Chronic (4) Hyponatremia: Code(s): E87.1 - Hypo-osmolality and hyponatremia Status: Acute (5) Morbid (severe) obesity due to excess calories: Code(s): E66.01 - Morbid (severe) obesity due to excess calories Status: Acute (6) JESSIKA (acute kidney injury): Code(s): N17.9 - Acute kidney failure, unspecified Status: Acute (7) Stage 3 chronic kidney disease: Code(s): N18.30 - Chronic kidney disease, stage 3 unspecified Status: Chronic (8) Acute hyperkalemia: Code(s): E87.5 - Hyperkalemia Status: Acute Plan 1.Mild CHF exacerbation Continue with IV Lasix 80 BID fluid restriction 1500 mL,Strict I&O's, Daily weight, sodium less than 2 g a day Compression stocking Nephrology is following appreciate rec 2. Jessika pre-existing CKD stage 3: Likely secondary to cardiorenal Renal ultrasound unremarkable Follow kidney function, improving History of chronic hyponatremia continue salt tablets, changed from BID to daily Renal consulted 3.Urinary retention Valenzuela placed for urinary retention Hematuria resolving Valenzuela Dc'd. Void trial 4.Hematuria Urology consulted, appreciate recommendations Clots in catheter 07/01-07/02, resolved. Could be due to irritation Held apixaban DC'd catheter 07/03. Void trial today 5.History of atrial fibrillation with slow ventricular response: Continue with tele monitoring No beta-blockers Hold Eliquis for hematuria 6.History of diabetes mellitus: Blood glucose checked t.i.d. a.c. and HS Continue with sliding scale insulin Add mealtime insulin 2<4 units TID with meals Lantus 10 units 07/02. Increase to 13 units today Recent hemoglobin 6.1 7. Constipation: 06/28 KUB no acute findings Code status: Full DVT prophylaxis: Eliquis P.T./OT Disposition: [place] Swing bed Time Spent With Patient Time: 35 minutes Subjective Date/time seen: 07/04/25 14:04 Interval history: In room air. was able to ambulate in the hallway about 100 beats. He then complained shortness of breath. By far, this is his longest mobility. He is still in IV diuresis. Exam Narrative: APPEARANCE: No acute distress, obese EYES: EOMI HEENT: Normocephalic, atraumatic, OMM RESPIRATORY: No respiratory distress Clear to auscultation bilaterally with no rhonchi wheezing or rales. CARDIOVASCULAR: RRR, S1 and S2 without murmurs rubs or gallops. ABDOMINAL: Soft, nontender, nondistended, no rebound or guarding MUSCULOSKELETAl: Normal range of motion. Bilateral lower extremity 3 + pitting edema NEURO: Awake and alert. Following commands, speech normal, no focal deficits SKIN:: Warm, dry. No rashes lesions or abrasions PSYCHIATRIC: Normal affect/mood, Objective Data Vital Signs Vital Signs: Vital Signs - 24 hr 07/03/25 16:00 07/03/25 20:05 07/03/25 20:47 Temperature 36.4 C Pulse Rate 68 71 75 Respiratory Rate 16 Blood Pressure 120/48 L Pulse Oximetry 100 Oxygen Delivery 07/04/25 00:00 07/04/25 04:00 07/04/25 05:35 Temperature 36.3 C L Pulse Rate 67 64 65 Respiratory Rate 16 Blood Pressure 122/44 L Pulse Oximetry 98 Oxygen Delivery 07/04/25 08:00 07/04/25 08:00 07/04/25 12:00 Temperature Pulse Rate 68 68 Respiratory Rate Blood Pressure Pulse Oximetry 98 Oxygen Delivery Room Air Intake/Output Intake/Output: Intake & Output 07/01/25 07/02/25 07/03/25 07/04/25 23:59 23:59 23:59 23:59 Intake Total 1070 1038 940 390 Output Total 7203 9390 6003 472 [facility] [phone] Meds/Results Medications: Active Medications Generic Name Dose Route Start Last Admin Trade Name Freq PRN Reason Stop Dose Admin Acetaminophen 650 mg 06/26/25 19:39 07/04/25 10:28 Acetaminophen 325 Mg Tablet PO 650 mg Q4H PRN Administration Mild Pain (1-3) or Fever Apixaban 5 mg 06/27/25 02:15 07/01/25 08:14 Apixaban 5 Mg Tablet PO 5 mg On Hold: 07/01/25 15:16 Q12HR YUNIOR Administration Dextrose 12.5 gm 06/26/25 21:20 Dextrose 50% 25 Gm/50 Ml Syringe IV PUSH PRN PRN Hypoglycemia Protocol Furosemide 80 mg 06/30/25 17:00 07/04/25 08:29 Furosemide Inj 40 Mg/4 Ml Vial IV PUSH 80 mg BID YUNIOR Administration Glucose 15 gm 06/26/25 21:20 Glucose Oral Gel 15 Gm Of Glucse In 37.5 Gm Tube PO PRN PRN Hypoglycemia Protocol Dextrose 1,000 mls @ 100 mls/hr 06/26/25 21:20 Dextrose 5% 1,000 Ml IVPB PRN PRN Hypoglycemia Protocol Insulin Aspart 2 - 5 units 06/27/25 08:00 07/04/25 11:43 Insulin Aspart (*Bkc) 100 Units/Ml SUB-Q 3 units TIDWM YUNIOR Administration Protocol Insulin Aspart 1 - 2 units 06/27/25 21:00 07/03/25 20:59 Insulin Aspart (*Bkc) 100 Units/Ml SUB-Q 1 units HS YUNIOR Administration Protocol Insulin Aspart 4 units 07/03/25 12:00 07/04/25 11:44 Insulin Aspart (*Bkc) 100 Units/Ml SUB-Q 4 units TIDWM YUNIOR Administration Insulin Glargine 13 units 07/03/25 10:35 07/04/25 08:33 Insulin Glargine (*Bkc) 100 Units/Ml SUB-Q 13 units DAILY YUNIOR Administration Melatonin 3 mg 06/27/25 02:15 07/03/25 20:43 Melatonin 3 Mg Tablet PO 3 mg HS YUNIOR Administration Pantoprazole Sodium 40 mg 06/27/25 09:00 07/04/25 08:29 Pantoprazole 40 Mg Tablet PO 40 mg QAM YUNIOR Administration Polyethylene Glycol 17 gm 06/29/25 17:00 07/04/25 08:30 Polyethylene Glycol 3350 17 Gm Powd.Pack PO 17 gm BID YUNIOR Administration Polysaccharide Iron Complex 150 mg 06/27/25 08:00 07/04/25 08:29 Polysaccharide Iron Complex 150 Mg Capsule PO 150 mg DAILY@0800 YUNIOR Administration Ranolazine 500 mg 06/27/25 02:20 07/04/25 08:29 Ranolazine 500 Mg Tab.Er.12h PO 500 mg Q12HR YUNIOR Administration Senna 8.6 mg 06/29/25 10:02 Sennosides 8.6 Mg Tablet PO BID PRN Constipation Senna 8.6 mg 07/01/25 21:00 07/03/25 20:43 Sennosides 8.6 Mg Tablet PO 8.6 mg HS YUNIOR Administration Sodium Chloride 1 gm 07/04/25 09:00 07/04/25 08:29 Sodium Chloride 1 Gm Tablet PO 1 gm DAILY YUNIOR Administration Tamsulosin HCl 0.4 mg 06/27/25 18:00 07/03/25 18:05 Tamsulosin Hcl 0.4 Mg Capsule PO 0.4 mg QPM YUNIOR Administration Radiology Results: ITS Impressions Chest X-Ray 06/26/25 17:49 Impression: Mild CHF Renal Ultrasound 06/27/25 12:21 IMPRESSION: 1. Normal right kidney and suboptimally visualized but normal-appearing left kidney, both with no hydronephrosis. 2. Small amount of ascites in the pelvis. Abdomen X-Ray 06/28/25 14:47 IMPRESSION: 1. No acute findings. 2. Volume of stool not significantly increased. Labs Labs: Laboratory Results - last 24 hr 07/01/25 07/01/25 07/03/25 07:46 11:46 16:36 WBC RBC Hgb Hct MCV MCH MCHC RDW Plt Count MPV Immature Gran % (Auto) Neut % (Auto) Lymph % (Auto) [place] % (Auto) Eos % (Auto) Baso % (Auto) Lymph # (Auto) [place] # (Auto) Eos # (Auto) Baso # (Auto) Abs Immat Gran (auto) Absolute Neuts (auto) Absolute Nucleated RBC Nucleated RBC % % Immature Plt Fraction Sodium Potassium Chloride Carbon Dioxide Anion Gap BUN Creatinine Estim Creat Clear Calc Estimated GFR Glucose POC Capillary Glucose 195 H 243 H 292 H Calcium Phosphorus Magnesium Iron TIBC % Saturation Ferritin Albumin 07/03/25 07/04/25 07/04/25 20:51 06:18 08:03 WBC 2.8 L RBC 2.51 L Hgb 8.0 L Hct 25.4 L MCV 101.2 H MCH 31.9 MCHC 31.5 L RDW 15.5 H Plt Count 101 L MPV 9.7 Immature Gran % (Auto) 0.7 H Neut % (Auto) 71.7 Lymph % (Auto) 9.9 L [place] % (Auto) 14.5 H Eos % (Auto) 2.8 Baso % (Auto) 0.4 Lymph # (Auto) 0.28 L [place] # (Auto) 0.4 Eos # (Auto) 0.1 Baso # (Auto) 0.0 Abs Immat Gran (auto) 0.02 Absolute Neuts (auto) 2.0 Absolute Nucleated RBC 0.000 Nucleated RBC % 0.0 % Immature Plt Fraction 1.9 Sodium 138 Potassium 4.0 Chloride 99 Carbon Dioxide 34 H Anion Gap 5 BUN 75 H Creatinine 1.43 H Estim Creat Clear Calc 54 Estimated GFR 48 L Glucose 225 H POC Capillary Glucose 271 H 194 H Calcium 8.8 Phosphorus 2.7 Magnesium 2.1 Iron 64 TIBC 363 % Saturation 18 L Ferritin 96.30 Albumin 3.0 L 07/04/25 11:12 WBC RBC Hgb Hct MCV MCH MCHC RDW Plt Count MPV Immature Gran % (Auto) Neut % (Auto) Lymph % (Auto) [place] % (Auto) Eos % (Auto) Baso % (Auto) Lymph # (Auto) [place] # (Auto) Eos # (Auto) Baso # (Auto) Abs Immat Gran (auto) Absolute Neuts (auto) Absolute Nucleated RBC Nucleated RBC % % Immature Plt Fraction Sodium Potassium Chloride Carbon Dioxide Anion Gap BUN Creatinine Estim Creat Clear Calc Estimated GFR Glucose POC Capillary Glucose 290 H Calcium Phosphorus Magnesium Iron TIBC % Saturation Ferritin Albumin Quality VTE Prophylaxis VTE prophylaxis: mechanical ordered
[2025-07-04] MEDS: TAMSULOSIN HCL 0.4 MG CAPSULE PO (17:07)
[2025-07-04] MEDS: SENNOSIDES 8.6 MG TABLET PO (20:03)
[2025-07-04] MEDS: MELATONIN 3 MG TABLET PO (20:03)
[2025-07-05] VITALS: PULSE 64
[2025-07-05 04:00] VITALS: PULSE 66
[2025-07-05 06:00] VITALS: BP 121/66; PULSE 72; RESP 20; TEMP 36.7; O2SAT 100
[2025-07-05 06:15] LABS: Hematocrit 26.3 % (42.0-52.0); Hemoglobin 8.4 g/dL (14.0-18.0); Immature Granulocyte Percent A 0.4 % (0-0.5); Immature Platelet Fraction Pct 2.3 % (0.9-11.2); Lymphocytes Absolute Auto 0.35 K/mm3 (0.9-3.2); Mean Corpuscular HGB Conc 31.9 g/dl (32-36); Mean Corpuscular Hemoglobin 32.4 pg (26-34); Mean Corpuscular Volume 101.5 fl (80-100); Nucleated Red Blood Cells Absolute Auto 0.000 K/mm3 (0.0-0.012); Nucleated Red Blood Cells Perc 0.0 % (0.0-0.2); Platelet Count Result 106 k/mm3 (150-375); Red Blood Count 2.59 M/mm3 (4.6-6.20); White Blood Count 2.8 K/mm3 (4.5-10.0)
[2025-07-05 06:36] LABS: Albumin Level 3.4 g/dL (3.5-5.1); Anion Gap 5 mmol/L (4-12); Blood Urea Nitrogen 73 mg/dL (9-20); Calcium 9.0 mg/dL (8.4-10.2); Carbon Dioxide 35 mmol/L (22-30); Chloride 99 mmol/L (98-107); Estimated CRCL calculation 56 ml/min; Estimated Glomerular Filt Rate 51; Glucose 214 mg/dL (65-110); Magnesium 2.0 mg/dL (1.6-2.3); Potassium 4.0 mmol/L (3.4-5.0); Sodium 139 mmol/L (137-145)
[2025-07-05] MEDS: RANOLAZINE 500 MG TAB.ER.12H PO (07:46)
[2025-07-05] MEDS: FUROSEMIDE INJ 40 MG/4 ML VIAL 80 MG IV PUSH (07:47)
[2025-07-05] MEDS: SODIUM CHLORIDE 1 GM TABLET PO (07:47)
[2025-07-05] MEDS: PANTOPRAZOLE 40 MG TABLET PO (07:47)
[2025-07-05] MEDS: INSULIN GLARGINE (*BKC) 100 UNITS/ML 13 UNITS SUB-Q (07:49)
[2025-07-05] MEDS: INSULIN ASPART (*BKC) 100 UNITS/ML SUB-Q ×3 (07:52→11:55)
[2025-07-05 08:00] VITALS: PULSE 68; O2SAT 100
--- NOTE | 2025-07-05 11:09 | WNDPHOTO ---
PHOTO ONLY - See Nursing Notes and/ or assessments for documentation.
--- NOTE | 2025-07-05 12:53 | P.DS_ITS ---
DS: Admitting Diagnosis Discharge Date 07/05/25 Admitting Diagnosis SOB DS: Discharge Diagnosis Discharge Diagnosis (1) Acute kidney injury: Code(s): N17.9 - Acute kidney failure, unspecified Status: Acute (2) Acute exacerbation of CHF (congestive heart failure): Qualifiers: Heart failure type: diastolic Qualified Code(s): I50.33 - Acute on chronic diastolic (congestive) heart failure Code(s): I50.9 - Heart failure, unspecified Status: Acute DS: Summary Hospital Course Hospital Course: Reason for Admission Acute shortness of breath, acute on chronic congestive heart failure (CHF) exacerbation, acute kidney injury (AALIYAH) on chronic kidney disease (CKD), urinary retention with gross hematuria, and generalized weakness. 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 Presented from home with acute onset shortness of breath and decreased urine output. He had been recently discharged from acute rehab following his orthopedic injuries. Denied chest pain, cough, fever, or GI symptoms. Noted to have significant lower extremity edema and was found to be in atrial fibrillation with slow ventricular response. Initial Evaluation: * Vitals: Hemodynamically stable, saturating well on room air. * Labs: * WBC 2.8, Hgb 8.3, Plt 128 * Na 127 (chronic), K 5.1, BUN 99, Cr 2.96 (baseline 1.2?1.6), BNP 2900 * ABG: pH 7.44, pCO2 36, pO2 88 * UA: Negative for infection * Imaging: CXR with mild CHF; renal US unremarkable. * EKG: Atrial fibrillation, slow response, no acute ischemia. Hospital Course: * CHF Exacerbation:?Managed with IV diuresis (Lasix), fluid restriction, strict I/O, daily weights, and compression stockings. Notable improvement in volume status and symptoms. * AALIYAH on CKD:?Multifactorial etiology (cardiorenal syndrome, renal venous hypertension, possible intravascular depletion). Renal function improved with diuresis; nephrology followed. * Atrial Fibrillation:?Rate control strategy, anticoagulation (Eliquis) held temporarily due to hematuria, then resumed. * Urinary Retention & Hematuria:?Developed acute urinary retention (>600 mL) on admission, managed with Valenzuela catheter. Gross hematuria attributed to catheter trauma and anticoagulation. Urology consulted; urine cleared, catheter removed after successful voiding trial. Creatinine normalized. * Hyponatremia:?Chronic, with acute on chronic drop likely due to volume overload. Managed with fluid restriction and salt tablets. * Generalized Weakness/Deconditioning:?PT/OT involved; patient improved mobility during stay. * Diabetes Mellitus:?Managed with sliding scale insulin, mealtime insulin, and Lantus. Glycemic control maintained. * Other:?Chronic pancytopenia monitored, no acute issues. Bowel regimen for constipation. Scrotal support recommended for penoscrotal edema. 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) * Chronic pancytopenia (D61.818) * History of renal cell carcinoma (Z85.528) * History of prostate cancer (Z85.46) * BPH with LUTS (N40.1) * Chronic debility, deconditioning (R53.1) * Recent left inferior pubic ramus and acetabulum fractures (S32.501A, S32.402A) Discharge Medications * Tamsulosin 0.4 mg PO daily * Continue home antihypertensives as tolerated * Bumex 2mg bid , dose per nephrology/cardiology * Salt tablets, 1 tab daily * Insulin regimen as per endocrinology/hospitalist * Eliquis (apixaban) for atrial fibrillation, resume if no further hematuria * Bowel regimen (docusate, senna) * Scrotal support (jockstrap) for penoscrotal edema * Other home medications as reconciled Discharge Condition * Ambulating with assistance, voiding spontaneously, urine clear, euvolemic, stable renal function, no acute distress. Discharge Instructions * Diet:?Heart-healthy, diabetic, sodium restriction <2g/day, fluid restriction 1.5L/day. * Activity:?Ambulate with assistance, fall precautions, continue PT/OT as outpatient. * Wound/Edema Care:?Continue compression stockings, scrotal support. * Follow-up: * Primary Care:?Within 1 week * Nephrology:?As scheduled * Urology:?Outpatient follow-up for BPH, history of hematuria, and prior malignancies; consider CT urogram and cystoscopy as outpatient * Cardiology:?For CHF and atrial fibrillation management * Endocrinology/Diabetes:?For ongoing glycemic management * Monitor:?Daily weights, blood pressure, blood glucose, signs of fluid overload or dehydration, hematuria, or urinary retention. * When to Seek Care:?Worsening shortness of breath, chest pain, palpitations, decreased urine output, gross hematuria, confusion, or any new concerning symptoms. Summary Mr. Guzman was admitted with acute decompensated heart failure and AALIYAH on CKD, complicated by urinary retention and hematuria. He responded well to diuresis and supportive care, with resolution of hematuria and normalization of renal function. He is stable for discharge with close outpatient follow-up. Time Spent with Patient Time attestation: Total time spent providing and/or coordinating discharge services: DS: Data Data Completed and Pending Labs on day of discharge: Labs from last 24 hours 07/05/25 07/05/25 07/05/25 11:17 07:30 06:00 WBC 2.8 L RBC 2.59 L Hgb 8.4 L Hct 26.3 L MCV 101.5 H MCH 32.4 MCHC 31.9 L RDW 15.6 H Plt Count 106 L MPV 9.9 Immature Gran % (Auto) 0.4 Neut % (Auto) 71.5 Lymph % (Auto) 12.3 L [place] % (Auto) 11.6 H Eos % (Auto) 3.5 Baso % (Auto) 0.7 Lymph # (Auto) 0.35 L [place] # (Auto) 0.3 Eos # (Auto) 0.1 Baso # (Auto) 0.0 Abs Immat Gran (auto) 0.01 Absolute Neuts (auto) 2.0 Absolute Nucleated RBC 0.000 Nucleated RBC % 0.0 % Immature Plt Fraction 2.3 Sodium 139 Potassium 4.0 Chloride 99 Carbon Dioxide 35 H Anion Gap 5 BUN 73 H Creatinine 1.35 H Estim Creat Clear Calc 56 Estimated GFR 51 L Glucose 214 H POC Capillary Glucose 230 H 200 H Calcium 9.0 Phosphorus 2.7 Magnesium 2.0 Albumin 3.4 L 07/04/25 07/04/25 22:02 17:07 WBC RBC Hgb Hct MCV MCH MCHC RDW Plt Count MPV Immature Gran % (Auto) Neut % (Auto) Lymph % (Auto) [place] % (Auto) Eos % (Auto) Baso % (Auto) Lymph # (Auto) [place] # (Auto) Eos # (Auto) Baso # (Auto) Abs Immat Gran (auto) Absolute Neuts (auto) Absolute Nucleated RBC Nucleated RBC % % Immature Plt Fraction Sodium Potassium Chloride Carbon Dioxide Anion Gap BUN Creatinine Estim Creat Clear Calc Estimated GFR Glucose POC Capillary Glucose 264 H 250 H Calcium Phosphorus Magnesium Albumin Discharge Plan Discharge Attending physician on discharge: Marycarmen Sherman Consulting providers: Faustino Hope; Marycarmen Sherman; Filiberto Castano; Patricia Cabral Discharging Clinician: Marycarmen Sherman Patient Disposition: Hospital Swing Bed Patient Instructions: Antibiotic Form, Apixaban (By mouth), Heart Failure (DC) Patient Language: Occitan Stand Alone Forms: General Discharge Information Follow-up/Referrals: Randy Borrero MD [Primary Care Provider, [facility]] - 2 Weeks Discharge Medications: New bumetanide 2 mg tablet 2 mg PO BID 30 Days Qty: 60 1RF Continued Repatha SureClick 140 mg/mL pen injector 140 mg subcut [id number] Rx Instructions: 1ST AND 15TH OF MONTH polyethylene glycol 3350 [Miralax] 17 gram Powder In Packet 17 g PO QAM PRN (Reason: constipation) insulin glargine [Lantus U-100 Insulin] 100 unit/mL Solution 25 unit subcut Q12HR Qty: 10 0RF acetaminophen [Acetaminophen Extra Strength] 500 mg tablet 1,000 mg PO Q6H carvedilol 12.5 mg tablet 12.5 mg PO Q12H insulin aspart U-100 [Novolog FlexPen U-100 Insulin] 100 unit/mL (3 mL) insulin pen 1 sliding scale dose SUBCUT TID PRN (Reason: hyperglycemia) Rx Instructions: Pt injects 8-10 units if blood sugar is reading 200-220. isosorbide mononitrate 30 mg tablet extended release 24 hr 30 mg PO QAM metolazone 2.5 mg tablet 2.5 mg PO QAM Rx Instructions: Take at least 90 minutes prior to taking furosemide dose. spironolactone 25 mg tablet 25 mg PO QAM polysaccharide iron complex [Poly-Iron] 150 mg iron capsule 150 mg PO DAILY Qty: 90 1RF nitroglycerin 0.4 mg tablet, sublingual See Rx Instructions .ROUTE .COMPLEX Qty: 100 0RF Dose Instruction: DISSOLVE 1 TABLET UNDER THE TONGUE EVERY 5 MINUTES NEEDED FOR CHEST PAIN. TO BE TAKEN NO MORE THAN THREE TIMES DAILY Rx Instructions: DISSOLVE 1 TABLET UNDER THE TONGUE EVERY 5 MINUTES NEEDED FOR CHEST PAIN. TO BE TAKEN NO MORE THAN THREE TIMES DAILY (DME) Scifiniti [place] 3 Sensor Device See Rx Instructions .Route Qty: 1 5RF Rx Instructions: As directed tamsulosin 0.4 mg Capsule 0.4 mg PO QPM Qty: 30 0RF Eliquis 5 mg Tablet 5 mg PO Q12HR Qty: 60 0RF sodium chloride 1,000 mg tablet,soluble 1,000 mg PO BID Qty: 60 0RF melatonin 3 mg Tablet 3 mg PO HS Qty: 0 0RF pantoprazole 40 mg tablet,delayed release (DR/EC) 40 mg PO QAM Qty: 30 0RF ranolazine 500 mg tablet extended release 12 hr 500 mg PO Q12H Qty: 60 0RF Discontinued furosemide 20 mg Tablet 60 mg PO BIDWM 15 Days Qty: 90 0RF Date of admission: 06/27/25 15:21 Primary Care Provider: Randy Borrero Admitting Provider: Tatum Wheeler Attending physician on admission: Tatum Wheeler Condition: Guarded Prognosis
[2025-07-05 14:00] VITALS: BP 102/45; PULSE 73; RESP 20; TEMP 36.3; O2SAT 100
[2025-07-06 13:08] LABS: Osmolality, Serum 296 mOsmol/kg (280-301)
[2025-07-10 23:08] LABS: Osmolality, Urine 368 mOsmol/kg (.)
--- OUTSIDE RECORDS SUMMARY | 2025-08-18 19:00 | XMS_ITS | Clinical Summary ---
Author Organization Unknown Care Team Providers Care Brain Picker Name Role Phone MC SAIDA CAREY Unavailable Devin ADAMS RN, NEELIMA Unavailable Unavailabl e ROMAN SHOOTER'S HELPER, [place] Unavailable Unavailable MELINA OT, AYAKA Unavailable Unavailable UBALDO PT, MAGI Unavailable Unavailable ALEJO METALLURGY LABORATORY TECHNICIAN, FATUMA Unavailable Unavailabl e LUPCHO TARYN/REIS, MIKE Unavailable Unavaila ble Payers Payer Name Policy Type Policy Number Effective Date Expira tion Date MEDICARE[facility] [place] [id number] Problems Condition Name Condition Details Condition Category [...] 06-21 00:00: 00 ATHSCL HEART DISEASE OF [place] CORONARY ARTERY W/O ANG PCTRS Active 06-21 [...] TO EXCESS CALORIES Active 06-21 00:00: 00 [employer] WORK[employer] (CURRENT) USE OF ANTIBIOTICS Active 06-21 00:00: 00 [facility] (CURRENT) USE OF INSULIN Active 06-21 00:00: 00 [facility] (CURRENT) USE OF ANTICOAGULAN TS Active 06-21 [...] 04-25 00:00: 00 05-11 00:00 :00 No [id number] Per instruc tions Per instructio ns (route: subcutaneo us) Med Classific ation: Endocrine Novolog FlexPen U-100 Insulin aspart 100 unit/mL (3 mL) subcutaneou s 04-11 00:00: 00 05-11 00:00 :00 No [id number] Per instruc tions THREE TIMES DAILY PER DAY Per instructio ns THREE TIMES DAILY PER DAY ([facility] Med Classific ation: Endocrine acetaminoph en 325 mg tablet 05-11 00:00: 00 Yes [id number] PAIN 2 tablet EVERY 6 HOURS 2 tablet EVERY 6 HOURS (route: oral) Med Classific ation: Analgesic , Anti-infl ammatory or Antipyret ic Eliquis 5 mg tablet 05-11 00:00: 00 Yes [id number] A-FIB 1 tablet 2 TIMES DAILY 1 tablet 2 TIMES DAILY (route: oral) Med Classific ation: Hematolog ical Agents furosemide 40 mg tablet 05-11 00:00: 00 05-26 23:59 :00 No [id number] EDEMA 1 tablet DAILY 1 tablet DAILY (route: oral) Med Classific ation: Cardiovas cular Therapy Agents insulin aspart (U-100) 100 unit/mL (3 mL) [facility] pen 05-11 00:00: 00 06-21 00:00 :00 No [id number] DM 20 unit 3 TIMES DAILY 20 unit 3 TIMES DAILY ([facility] Med Classific ation: Endocrine melatonin 3 mg tablet 05-11 00:00: 00 Yes [id number] INSOMNIA 1 tablet BEDTIME 1 tablet BEDTIME (route: oral) Med Classific ation: Central Nervous System Agents Miralax 17 gram/dose oral powder 05-11 00:00: 00 06-21 00:00 :00 No [id number] CONSTIPATIO N 17 gram DAILY 17 gram DAILY (route: oral) Med Classific ation: Gastroint estinal Therapy Agents nitroglycer in 0.4 mg sublingual tablet 05-11 00:00: 00 Yes [id number] CHEST PAIN 1 tablet DIRECTED 1 tablet DIRECTED (route: sublingual ) Med Classific ation: Cardiovas cular Therapy Agents pantoprazol e 40 mg tablet,dale yed release 05-11 00:00: 00 Yes [id number] GERD 1 tablet DAILY 1 tablet DAILY (route: oral) Med Classific ation: Gastroint estinal Therapy Agents Poly-Iron 150 mg iron capsule 05-11 00:00: 00 Yes [id number] SUPPLEMENT 1 capsule DAILY 1 capsule DAILY (route: oral) Med Classific ation: Electroly te Balance-N utritiona l Products ranolazine ER 500 mg tablet,exte nded release,12 hr 05-11 00:00: 00 Yes [id number] ANGINA 1 tablet 2 TIMES DAILY 1 tablet 2 TIMES DAILY (route: oral) Med Classific ation: Cardiovas cular Therapy Agents Repatha SureClick 140 mg/mL subcutane s pen injector 05-11 00:00: 00 06-21 00:00 :00 No [id number] HEART HEALTH 140 mg MONTHLY 140 mg MONTHLY (route: subcutaneo us) Med Classific ation: Cardiovas cular Therapy Agents sennosides 8.6 mg-docusate sodium 50 mg tablet 05-11 00:00: 00 06-21 00:00 :00 No [id number] CONSTIPATIO N 1 tablet 2 TIMES DAILY 1 tablet 2 TIMES DAILY (route: oral) Med Classific ation: Gastroint estinal Therapy Agents sodium chloride 1,000 mg soluble tablet 05-11 00:00: 00 Yes [id number] HYPONATREMI A 1 tablet 2 TIMES DAILY 1 tablet 2 TIMES DAILY (route: miscellane ous) Med Classific ation: Electroly te Balance-N utritiona l Products metolazone 2.5 mg tablet 05-16 00:00: 00 05-19 23:59 :00 No [id number] INCREASED EDEMA 1 tablet DAILY 1 tablet DAILY (route: oral) Med Classific ation: Cardiovas cular Therapy Agents furosemide 40 mg tablet 05-13 00:00: 00 05-17 23:59 :00 No [id number] FLUID OVERLOAD 1 tablet 2 TIMES DAILY 1 tablet 2 TIMES DAILY (route: oral) Alternate Route: BY MOUTH. Med Classific ation: Cardiovas cular Therapy Agents furosemide 40 mg tablet 05-26 00:00: 00 06-21 00:00 :00 No [id number] DIURETIC 1 tablet 2 TIMES DAILY 1 tablet 2 TIMES DAILY (route: oral) Med Classific ation: Cardiovas cular Therapy Agents metolazone 2.5 mg tablet 05-26 00:00: 00 06-21 00:00 :00 No [id number] DIURETIC 1 tablet DAILY 1 tablet DAILY (route: oral) Med Classific ation: Cardiovas cular Therapy Agents trazodone 50 mg tablet 05-26 00:00: 00 06-21 00:00 :00 No [id number] SLEEP AID 1 tablet BEDTIME 1 tablet BEDTIME (route: oral) Med Classific ation: Central Nervous System Agents Vital Signs Vital Name Observation Time Observation Value Commen ts Temperature 2025-06-24 11:53:00.000 97.9 [degF] Temperature 2025-06-23 14:24:00.000 96.9 [degF] Temperature 2025-06-21 20:12:00.000 97.4 [degF] BMI (%) 2025-06-21 12:52:01.000 38 kg/m2 Height 2025-06-21 12:51:41.000 73 [in_us] Pulse 2025-06-24 11:53:00.000 67 /min Pulse 2025-06-23 14:24:00.000 55 /min Pulse 2025-06-21 20:12:00.000 64 /min O2 Saturation (%) 2025-06-24 11:53:00.000 97 % O2 Saturation (%) 2025-06-23 14:24:00.000 98 % O2 Saturation (%) 2025-06-21 20:12:00.000 97 % Respirations 2025-06-24 11:53:00.000 18 /min Respirations 2025-06-23 14:24:00.000 18 /min Respirations 2025-06-21 20:12:00.000 16 /min Weight (lbs) 2025-06-24 11:53:00.000 303 [lb_av] Weight (lbs) 2025-06-21 12:52:01.000 289 [lb_av] Systolic Blood Pressure 2025-06-24 11:53:00.000 118 mm [Hg] Systolic Blood Pressure 2025-06-23 14:24:00.000 98 mm[ Hg] Systolic Blood Pressure 2025-06-21 20:12:00.000 102 mm [Hg] Diastolic Blood Pressure 2025-06-24 11:53:00.000 68 mm [Hg] Diastolic Blood Pressure 2025-06-23 14:24:00.000 52 mm [Hg] Diastolic Blood Pressure 2025-06-21 20:12:00.000 60 mm [Hg] Plan of Treatment Planned Activity Planned Date Details Comments Future Scheduled Test RN TO OBSE RVE, ASSESS, EVALUATE, AND DEVELOP AN INDIVIDUALIZED PLAN OF CARE. AGENCY MAY ACCEPT ORDERS FROM CONSULTING PHYSICIANS RN TO OBSERVE AND ASSESS, SHOOTER'S HELPER/BOAT DISPATCHER TO OBSERVE FOR RISK FOR FALLS AND INSTRUCT IN FALL PREVENTION, HOME SAFETY, MEDICATION MANAGEMENT, INFECTION PREVENTION, AND NUTRITION MANAGEMENT. RN/SHOOTER'S HELPER/BOAT DISPATCHER NURSE MAY PERFORM O2 SATURATION LEVEL ON ADMISSION AND PRN FOR 1 VISIT FOR RN TO ASSESS/SHOOTER'S HELPER TO OBSERVE PATIENT, WITH NOTIFICATION TO THE PHYSICIAN IF SATURATION IS 90% IN THE ABSENCE OF MORE SPECIFIC PARAMETERS FROM THE PHYSICIAN. AGENCY MAY PERFORM A RESUMPTION OF CARE VISIT FOLLOWING ANY HOSPITAL ADMISSION. RN/SHOOTER'S HELPER/BOAT DISPATCHER TO MONITOR CO-MORBID CONDITIONS LISTED ON THE PLAN OF CARE AND ANY NEW CONDITIONS THAT PRESENT THEMSELVES DURING THIS EPISODE TO IDENTIFY CHANGES AND INTERVENE TO MINIMIZE COMPLICATIONS. [code = RN TO OBSERVE, ASSESS, EVALUATE, AND DEVELOP AN INDIVIDUALIZED PLAN OF CARE. AGENCY MAY ACCEPT ORDERS FROM CONSULTING PHYSICIANS RN TO OBSERVE AND ASSESS, SHOOTER'S HELPER/BOAT DISPATCHER TO OBSERVE FOR RISK FOR FALLS AND INSTRUCT IN FALL PREVENTION, HOME SAFETY, MEDICATION MANAGEMENT, INFECTION PREVENTION, AND NUTRITION MANAGEMENT. RN/SHOOTER'S HELPER/BOAT DISPATCHER NURSE MAY PERFORM O2 SATURATION LEVEL ON ADMISSION AND PRN FOR 1 VISIT FOR RN TO ASSESS/SHOOTER'S HELPER TO OBSERVE PATIENT, WITH NOTIFICATION TO THE PHYSICIAN IF SATURATION IS 90% IN THE ABSENCE OF MORE SPECIFIC PARAMETERS FROM THE PHYSICIAN. AGENCY MAY PERFORM A RESUMPTION OF CARE VISIT FOLLOWING ANY HOSPITAL ADMISSION. RN/SHOOTER'S HELPER/BOAT DISPATCHER TO MONITOR CO-MORBID CONDITIONS LISTED ON THE PLAN OF CARE AND ANY NEW CONDITIONS THAT PRESENT THEMSELVES DURING THIS EPISODE TO IDENTIFY CHANGES AND INTERVENE TO MINIMIZE COMPLICATIONS.] Future Scheduled Test MEDICATION MANAGEMENT; RN/SHOOTER'S HELPER/BOAT DISPATCHER TO REVIEW MEDICATIONS FOR INTERACTIONS, EFFECTIVENESS OF DRUG THERAPY, AND SIGNS/SYMPTOMS OF ADVERSE REACTIONS. MAY INSTRUCT AND REINFORCE MEDICATION TEACHING RELATED TO THE USE OF MEDICATIONS, DOSAGE, FREQUENCY, PURPOSE, SIDE EFFECTS, AND TO REPORT COMPLICATIONS. [code = MEDICATION MANAGEMENT; RN/SHOOTER'S HELPER/BOAT DISPATCHER TO REVIEW MEDICATIONS FOR INTERACTIONS, EFFECTIVENESS OF DRUG THERAPY, AND SIGNS/SYMPTOMS OF ADVERSE REACTIONS. MAY INSTRUCT AND REINFORCE MEDICATION TEACHING RELATED TO THE USE OF MEDICATIONS, DOSAGE, FREQUENCY, PURPOSE, SIDE EFFECTS, AND TO REPORT COMPLICATIONS.] Future Scheduled Test RISK FOR H OSPITALIZATION; RN TO ASSESS/TEACH, BOAT DISPATCHER/SHOOTER'S HELPER TO OBSERVE/TEACH PATIENT/CAREGIVER ON RISK FOR HOSPITALIZATION/EMERGENCY ROOM VISITS, TEACH SIGNS AND SYMPTOMS THAT PUT PATIENT AT RISK, WHEN TO NOTIFY NURSE/PHYSICIAN OF COMPLICATIONS/DECLINE, AND WHEN TO CALL 911. [code = RISK FOR HOSPITALIZATION; RN TO ASSESS/TEACH, BOAT DISPATCHER/SHOOTER'S HELPER TO OBSERVE/TEACH PATIENT/CAREGIVER ON RISK FOR HOSPITALIZATION/EMERGENCY ROOM VISITS, TEACH SIGNS AND SYMPTOMS THAT PUT PATIENT AT RISK, WHEN TO NOTIFY NURSE/PHYSICIAN OF COMPLICATIONS/DECLINE, AND WHEN TO CALL 911.] Future Scheduled Test CARDIOVASC ULAR SYSTEM; RN TO ASSESS/TEACH, SHOOTER'S HELPER/BOAT DISPATCHER TO OBSERVE/TEACH RELATED TO ALTERED CARDIOVASCULAR STATUS TO MINIMIZE COMPLICATIONS AND REDUCE HOSPITALIZATION. [code = CARDIOVASCULAR SYSTEM; RN TO ASSESS/TEACH, SHOOTER'S HELPER/BOAT DISPATCHER TO OBSERVE/TEACH RELATED TO ALTERED CARDIOVASCULAR STATUS TO MINIMIZE COMPLICATIONS AND REDUCE HOSPITALIZATION.] Future Scheduled Test HEART FAIL URE; RN TO ASSESS/TEACH, SHOOTER'S HELPER/BOAT DISPATCHER TO OBSERVE/TEACH CARDIOPULMONARY SYSTEM TO IDENTIFY SIGNS [...] [code = HEART FAILURE; RN TO ASSESS/TEACH, SHOOTER'S HELPER/BOAT DISPATCHER TO OBSERVE/TEACH CARDIOPULMONARY SYSTEM TO IDENTIFY SIGNS [...] ON MANAGEMENT; RN TO ASSESS AND TEACH, SHOOTER'S HELPER/BOAT DISPATCHER TO OBSERVE AND TEACH WARNING SIGNS AND SYMPTOMS TO AVOID HOSPITALIZATION. [code = HYPERTENSION MANAGEMENT; RN TO ASSESS AND TEACH, SHOOTER'S HELPER/BOAT DISPATCHER TO OBSERVE AND TEACH WARNING SIGNS AND SYMPTOMS TO AVOID HOSPITALIZATION.] Future Scheduled Test ARRHYTHMIA MANAGEMENT; RN TO ASSESS AND TEACH, SHOOTER'S HELPER/BOAT DISPATCHER TO OBSERVE AND TEACH WARNING SIGNS AND SYMPTOMS TO AVOID HOSPITALIZATION. [code = ARRHYTHMIA MANAGEMENT; RN TO ASSESS AND TEACH, SHOOTER'S HELPER/BOAT DISPATCHER TO OBSERVE AND TEACH WARNING SIGNS AND SYMPTOMS TO AVOID HOSPITALIZATION.] Future Scheduled Test PAIN MANAG EMENT; RN TO ASSESS AND TEACH, BOAT DISPATCHER/SHOOTER'S HELPER TO OBSERVE AND TEACH AND PROVIDE EDUCATION ON PAIN MANAGEMENT TECHNIQUES. [code = PAIN MANAGEMENT; RN TO ASSESS AND TEACH, BOAT DISPATCHER/SHOOTER'S HELPER TO OBSERVE AND TEACH AND PROVIDE EDUCATION ON PAIN MANAGEMENT TECHNIQUES.] Future Scheduled Test GENITOURIN DELANEY MANAGEMENT; RN TO ASSESS AND TEACH, SHOOTER'S HELPER/BOAT DISPATCHER TO OBSERVE AND TEACH RELATED TO ALTERED GENITOURINARY STATUS TO MINIMIZE COMPLICATIONS AND REDUCE HOSPITALIZATION. [code = GENITOURINARY MANAGEMENT; RN TO ASSESS AND TEACH, SHOOTER'S HELPER/BOAT DISPATCHER TO OBSERVE AND TEACH RELATED TO ALTERED GENITOURINARY STATUS TO MINIMIZE COMPLICATIONS AND REDUCE HOSPITALIZATION.] Future Scheduled Test URINARY IN CONTINENCE MANAGEMENT; RN TO ASSESS AND TEACH, SHOOTER'S HELPER/LVNTO OBSERVE AND TEACH MANAGEMENT OF URINARY INCONTINENCE. TEACH/INSTRUCT ON PREVENTING INFECTION AND SKIN BREAKDOWN. RN/SHOOTER'S HELPER/BOAT DISPATCHER MAY INSTRUCT IN BLADDER TRAINING PROGRAM INDICATED. [code = URINARY INCONTINENCE MANAGEMENT; RN TO ASSESS AND TEACH, SHOOTER'S HELPER/LVNTO OBSERVE AND TEACH MANAGEMENT OF URINARY INCONTINENCE. TEACH/INSTRUCT ON PREVENTING INFECTION AND SKIN BREAKDOWN. RN/SHOOTER'S HELPER/BOAT DISPATCHER MAY INSTRUCT IN BLADDER TRAINING PROGRAM INDICATED.] Future Scheduled Test URINARY TR ACT INFECTION MANAGEMENT; RN/BOAT DISPATCHER/SHOOTER'S HELPER TO PROVIDE SKILLED TEACHING AND SELF- CARE MANAGEMENT RELATED TO UTI TO MINIMIZE COMPLICATIONS AND REDUCE THE RISK OF HOSPITALIZATION. [code = URINARY TRACT INFECTION MANAGEMENT; RN/BOAT DISPATCHER/SHOOTER'S HELPER TO PROVIDE SKILLED TEACHING AND SELF- CARE MANAGEMENT RELATED TO UTI TO MINIMIZE COMPLICATIONS AND REDUCE THE RISK OF HOSPITALIZATION.] Future Scheduled Test FALL REDUC TION MANAGEMENT; RN TO ASSESS AND OBSERVE, SHOOTER'S HELPER/BOAT DISPATCHER TO OBSERVE FALL RISK FACTORS AND EDUCATE PATIENT/CAREGIVER ON STRATEGIES TO MINIMIZE THE RISK OF FALLING. [code = FALL REDUCTION MANAGEMENT; RN TO ASSESS AND OBSERVE, SHOOTER'S HELPER/BOAT DISPATCHER TO OBSERVE FALL RISK FACTORS AND EDUCATE [...] Scheduled Test PRN VISITS ; NUMBER OF RN/SHOOTER'S HELPER/BOAT DISPATCHER VISITS: 1 RN/SHOOTER'S HELPER/BOAT DISPATCHER TO PERFORM: 1 VISIT FOR THE FOLLOWING REASONS: WOUND COMPLICATIONS [code = PRN VISITS; NUMBER OF RN/SHOOTER'S HELPER/BOAT DISPATCHER VISITS: 1 RN/SHOOTER'S HELPER/BOAT DISPATCHER TO PERFORM: 1 VISIT FOR THE FOLLOWING REASONS: WOUND COMPLICATIONS] Future Scheduled Test DIABETES M ANAGEMENT; RN TO ASSESS AND TEACH, BOAT DISPATCHER/SHOOTER'S HELPER TO OBSERVE AND TEACH INSTRUCTIONS OF DIABETIC CARE TO INCLUDE: DIET DIABETIC SKIN CARE, SIGNS AND SYMPTOMS OF HYPO/HYPERGLYCEMIA, PROPER ADMINISTRATION OF DIABETIC MEDICATION. RN/BOAT DISPATCHER/SHOOTER'S HELPER TO INSTRUCT ON DIABETIC FOOT CARE AND MONITOR FOR SKIN LESIONS ON LOWER EXTREMITIES. BLOOD GLUCOSE TESTING 4X DAILY FREQ. RN TO ASSESS AND TEACH, BOAT DISPATCHER/SHOOTER'S HELPER TO OBSERVE AND TEACH PATIENT/CAREGIVER ABILITY TO PERFORM AND RECORD BLOOD GLUCOSE TESTING ORDERED AND TO REPORT ABNORMAL FINDINGS TO PHYSICIAN. RN/BOAT DISPATCHER/SHOOTER'S HELPER MAY PERFORM BLOOD GLUCOSE TEST NEEDED. RN/BOAT DISPATCHER/SHOOTER'S HELPER TO REPORT TO PHYSICIAN BLOOD GLUCOSE READINGS GREATER THAN 300 OR LESS THAN 70 RN/BOAT DISPATCHER/SHOOTER'S HELPER TO INSTRUCT PATIENT ON IMPORTANCE OF HGBA1C MONITORING, KIDNEY FUNCTION TEST, EYE AND FOOT EXAMS. [code = DIABETES MANAGEMENT; RN TO ASSESS AND TEACH, BOAT DISPATCHER/SHOOTER'S HELPER TO OBSERVE AND TEACH INSTRUCTIONS OF DIABETIC CARE TO INCLUDE: DIET DIABETIC SKIN CARE, SIGNS AND SYMPTOMS OF HYPO/HYPERGLYCEMIA, PROPER ADMINISTRATION OF DIABETIC MEDICATION. RN/BOAT DISPATCHER/SHOOTER'S HELPER TO INSTRUCT ON DIABETIC FOOT CARE AND MONITOR FOR SKIN LESIONS ON LOWER EXTREMITIES. BLOOD GLUCOSE TESTING 4X DAILY FREQ. RN TO ASSESS AND TEACH, BOAT DISPATCHER/SHOOTER'S HELPER TO OBSERVE AND TEACH PATIENT/CAREGIVER ABILITY TO PERFORM AND RECORD BLOOD GLUCOSE TESTING ORDERED AND TO REPORT ABNORMAL FINDINGS TO PHYSICIAN. RN/BOAT DISPATCHER/SHOOTER'S HELPER MAY PERFORM BLOOD GLUCOSE TEST NEEDED. RN/BOAT DISPATCHER/SHOOTER'S HELPER TO REPORT TO PHYSICIAN BLOOD GLUCOSE READINGS GREATER THAN 300 OR LESS THAN 70 RN/BOAT DISPATCHER/SHOOTER'S HELPER TO INSTRUCT PATIENT ON IMPORTANCE OF HGBA1C MONITORING, KIDNEY FUNCTION TEST, EYE AND FOOT EXAMS.] Future Scheduled Test RN/SHOOTER'S HELPER/BOAT DISPATCHER TO PERFORM/TEACH PATIENT/CAREGIVER WOUND CARE TO COCYX [...] GAUZE COVER WITH FOAM DRESSING [code = RN/SHOOTER'S HELPER/BOAT DISPATCHER TO PERFORM/TEACH PATIENT/CAREGIVER WOUND CARE TO COCYX [...] N MANAGEMENT; RN TO ASSESS AND TEACH/ SHOOTER'S HELPER /BOAT DISPATCHER TO OBSERVE AND TEACH WARNING SIGNS AND SYMPTOMS TO AVOID HOSPITALIZATION. [code = HYPOTENSION MANAGEMENT; RN TO ASSESS AND TEACH/ SHOOTER'S HELPER /BOAT DISPATCHER TO OBSERVE AND TEACH WARNING SIGNS AND SYMPTOMS TO AVOID HOSPITALIZATION.] Future Scheduled Test CANCER MAN AGEMENT; RN TO ASSESS AND TEACH, BOAT DISPATCHER/SHOOTER'S HELPER TO OBSERVE AND TEACH AND PROVIDE EDUCATION ON CANCER. [code = CANCER MANAGEMENT; RN TO ASSESS AND TEACH, BOAT DISPATCHER/SHOOTER'S HELPER TO OBSERVE AND TEACH AND PROVIDE EDUCATION ON CANCER.] Future Scheduled Test AGENCY MAY PERFORM A RESUMPTION OF CARE VISIT FOLLOWING ANY HOSPITAL ADMISSION. PT TO EVALUATE, OBSERVE / ASSESS, AND MONITOR, METALLURGY LABORATORY TECHNICIAN TO OBSERVE AND MONITOR, PROVIDE SKILLED THERAPEUTIC INTERVENTION, ACTIVITY, EDUCATION, AND TRAINING TO ADDRESS; PT/METALLURGY LABORATORY TECHNICIAN TO PROVIDE GAIT TRAINING FOR IMPROVED MOBILITY AND /OR TO NORMALIZE GAIT PATTERN NEUROMUSCULAR RE-EDUCATION / BALANCE / POSTURAL CONTROL (PT) THERAPEUTIC EXERCISES AND ESTABLISHING A HOME EXERCISE PROGRAM (PT/METALLURGY LABORATORY TECHNICIAN) SIT TO/FROM STAND TRANSFERS (PT/METALLURGY LABORATORY TECHNICIAN) PT / METALLURGY LABORATORY TECHNICIAN TO MONITOR FOR HYPO/HYPERGLYCEMIA AND CONDUCT ROUTINE FOOT INSPECTIONS. RECORD PATIENT REPORTED BLOOD SUGAR LEVELS AND NOTIFY PHYSICIAN AND/OR THE RN CLINICAL ROLLOUT MANAGER FOR PHYSICIAN NOTIFICATION IF BLOOD SUGAR LEVELS ARE OUTSIDE ORDERED PARAMETERS. TEACH PATIENT/CAREGIVER ON DAILY FOOT INSPECTIONS PT TO ASSESS / METALLURGY LABORATORY TECHNICIAN TO MONITOR FOR HEART FAILURE EXACERBATION AND RECORD PATIENT REPORTED WEIGHT, AND NOTIFY THE PHYSICIAN AND/OR THE RN CLINICAL ROLLOUT MANAGER FOR PHYSICIAN NOTIFICATION OF HF EXACERBATION (2LB WEIGHT GAIN IN 1 DAY, 5LBS IN A WEEK OR 5 LBS OVER BASELINE; INCREASED SOB, EDEMA, NEEDING MORE PILLOWS AT NIGHT, CRACKLES IN BASIS OF THE LUNGS OR PMI SHIFT) PT TO ASSESS / METALLURGY LABORATORY TECHNICIAN TO MONITOR CARDIO/RESPIRATORY SYSTEM; AND NOTIFY THE PHYSICIAN AND/OR THE RN CLINICAL ROLLOUT MANAGER FOR PHYSICIAN NOTIFICATION FOR EARLY SIGNS AND SYMPTOMS OF EXACERBATION OR DETERIORATION. PT/METALLURGY LABORATORY TECHNICIAN TO IDENTIFY FALL RISK FACTORS; EDUCATE THE PATIENT/CAREGIVER ON WAYS TO REDUCE FALL RISK FACTORS AND ESTABLISH HOME EXERCISE PROGRAM TO MINIMIZE FALL RISK. MAY TEACH THE PATIENT FLOOR RECOVERY WHEN CLINICALLY APPROPRIATE [code = AGENCY MAY PERFORM A RESUMPTION OF CARE VISIT FOLLOWING ANY HOSPITAL ADMISSION. PT TO EVALUATE, OBSERVE / ASSESS, AND MONITOR, METALLURGY LABORATORY TECHNICIAN TO OBSERVE AND MONITOR, PROVIDE SKILLED THERAPEUTIC INTERVENTION, ACTIVITY, EDUCATION, AND TRAINING TO ADDRESS; PT/METALLURGY LABORATORY TECHNICIAN TO PROVIDE GAIT TRAINING FOR IMPROVED MOBILITY AND /OR TO NORMALIZE GAIT PATTERN NEUROMUSCULAR RE-EDUCATION / BALANCE / POSTURAL CONTROL (PT) THERAPEUTIC EXERCISES AND ESTABLISHING A HOME EXERCISE PROGRAM (PT/METALLURGY LABORATORY TECHNICIAN) SIT TO/FROM STAND TRANSFERS (PT/METALLURGY LABORATORY TECHNICIAN) PT / METALLURGY LABORATORY TECHNICIAN TO MONITOR FOR HYPO/HYPERGLYCEMIA AND CONDUCT ROUTINE FOOT INSPECTIONS. RECORD PATIENT REPORTED BLOOD SUGAR LEVELS AND NOTIFY PHYSICIAN AND/OR THE RN CLINICAL ROLLOUT MANAGER FOR PHYSICIAN NOTIFICATION IF BLOOD SUGAR LEVELS ARE OUTSIDE ORDERED PARAMETERS. TEACH PATIENT/CAREGIVER ON DAILY FOOT INSPECTIONS PT TO ASSESS / METALLURGY LABORATORY TECHNICIAN TO MONITOR FOR HEART FAILURE EXACERBATION AND RECORD PATIENT REPORTED WEIGHT, AND NOTIFY THE PHYSICIAN AND/OR THE RN CLINICAL ROLLOUT MANAGER FOR PHYSICIAN NOTIFICATION OF HF EXACERBATION (2LB WEIGHT GAIN IN 1 DAY, 5LBS IN A WEEK OR 5 LBS OVER BASELINE; INCREASED SOB, EDEMA, NEEDING MORE PILLOWS AT NIGHT, CRACKLES IN BASIS OF THE LUNGS OR PMI SHIFT) PT TO ASSESS / METALLURGY LABORATORY TECHNICIAN TO MONITOR CARDIO/RESPIRATORY SYSTEM; AND NOTIFY THE PHYSICIAN AND/OR THE RN CLINICAL ROLLOUT MANAGER FOR PHYSICIAN NOTIFICATION FOR EARLY SIGNS AND SYMPTOMS OF EXACERBATION OR DETERIORATION. PT/METALLURGY LABORATORY TECHNICIAN TO IDENTIFY FALL RISK FACTORS; EDUCATE THE [...] RISK EVIDENCED BY IMPROVED TINETTI SCORE FROM TO IN 5 WEEKS ... PT LTG: PATIENT [...] WITH IMPLEMENTATION OF HEP WITHIN 3 WEEKS Progress Notes Progress Notes <paragraph>[Visit Date: 2024 by MAGI CONNER PT]:</paragraph><paragraph>PROVIDED CARE: PATIENT IS A 79-YEAR-OLD MALE WHO WAS RECENTLY HOSPITALIZED AFTER A FALL WITH A LEFT ACETABULAR AND PELVIC RAMI FRACTURE. HE HAS A PAST MEDICAL HISTORY OF A RECENT RIGHT HIP FRACTURE WITH REPLACEMENT AFTER A FALL. HE ALSO HAS A PAST MEDICAL HISTORY SIGNIFICANT FOR HYPERTENSION DIABETES AFIB AND CHF. PATIENT LIVES ALONE ON THE MAIN LEVEL OF A 2 LEVEL HOME. HE HAS A RAMP TO ENTER FROM THE [place]. PATIENT WAS INDEPENDENT WITH USE OF A SINGLE POINT CANE PRIOR TO HIS FIRST FALL. PATIENT'S CHILDREN ASSIST ABLE BUT LIVE OUT OF TOWN.</paragraph><paragraph></paragraph><paragraph>CURRENT LEVEL OF FUNCTION: BILATERAL LOWER EXTREMITY STRENGTH GROSSLY 4/5. PATIENT TRANSITION FROM [id number] WITH CONTACT GUARD ASSIST AND WIDE BASE OF SUPPORT. PATIENT AMBULATES WITH A FRONT WHEEL WALKER AND CONTACT GUARD ASSIST WITH DECREASED FOOT CLEARANCE AND STEP LENGTH BILATERALLY. HE IS INDEPENDENT WITH BED MOBILITY. HE SCORED 14/28 ON THE TINETTI GAIT AND BALANCE ASSESSMENT. PATIENT WILL BENEFIT FROM SHORT-TERM PHYSICAL THERAPY TO ADDRESS DEFICITS RELATED TO BALANCE AND GAIT AND STRENGTH</paragraph> <paragraph>[Visit Date: 2024 by ELÍAS SUGGS OT]:</paragraph><paragraph>PATIENT IS A 79 YEAR OLD MALE WHO LIVES BY HIMSELF IN A ONE STORY HOME WITH RAMP. PATIENT WAS REFERRED TO SKILLED OT SERVICES DUE TO RECENT HOSPITALIZATION RELATED TO L PELVIC FX FROM A FALL. PAST MEDICAL HISTORY INCLUDES RIGHT HIP FRACTURE WITH REPLACEMENT AFTER A FALL, HYPERTENSION DIABETES, AFIB AND CHF. PATIENT ALSO REPORTS HE HAS LYPHEDEMA.THESE WERE VERIFIED THROUGH MEDICAL RECORDS. VITAL SIGNS WITHIN NORMAL LIMITS AND PAIN REPORTED AT 0/ 10. PATIENT WAS AGREEABLE WITH OCCUPATIONAL THERAPY SERVICES AND INTERVENTIONS WILL INCLUDE HOME EXERCISE PROGRAM, SAFETY EDUCATION, ADL RETRAINING, FALL PREVENTION EDUCATION AT HOME.</paragraph><paragraph></paragraph><paragraph>PATIENT IS CONSIDERED HOMEBOUND DUE TO RECENT HOSPITALIZATION DUE TO L PELVIC FX THEREFORE LEAVING THE HOUSE CAUSES A TAXING EFFORT, COGNITIVE DEFICITS PRESENT, NEEDS CAREGIVER ASSISTANCE AND USE OF WALKER, EXHAUSTION AND FATIGUE, AND ASSISTANCE WITH TRANSFERS, PAIN IS OCCASIONALLY PRESENT AND AFFECTS ACTIVITY, POSING A RISK FOR SAFETY.</paragraph><paragraph></paragraph><paragraph>OT POC IS DIRECTLY RELATED TO DECLINE IN STRENGTH AND SAFETY FROM RECENT HOSPITALIZATION DX L PELVIS FX AND OTHER COMORBIDITIES AFFECTING ACTIVITY TOLERANCE, FALL RISK AND ADL INDEPENDENCE. PATIENT IS CURRENTLY SHOWING A DECLINE IN PRIOR LEVEL OF FUNCTION WARRANTING THE SKILLED NEED FOR OT.</paragraph><paragraph></paragraph><paragraph>PROVIDED CARE:</paragraph><paragraph></paragraph><paragraph>PATIENT WAS SEEN FOR SKILLED OT EVALUATION TO ESTABLISH PLAN OF CARE. PATIENT DEMONSTRATED FUNCTIONAL MOBILITY WITH MIN ASSISTANCE AND MINIMAL CUES FOR OBSTACLE NEGOTIATION AND SAFETY. PATIENT USES A WHEELED WALKER FOR AMBULATION. PATIENT DEMONSTRATES 3-/5 GROSS MMT ON BOTH UPPER EXTREMITIES. PATIENT IS MODIFIED INDEPENDENT WITH FEEDING, GROOMING, UPPER BODY AND MIN A WITH LOWER BODY DRESSING, MOD I WITH TOILETING, AND NEEDS MIN ASSISTANCE WITH BATHING AND MIN A WITH FUNCTIONAL TRANSFERS FOR SAFETY. PATIENT REPORTS HE HAS A LOT OF FEAR OF FALLING, AND IS [facility]EDUL[facility]. PATIENT'S BATHROOM IS EQUIPPED WITH A WALK IN SHOWER FEATURE WITH GRAB BARS, HAND HELD SHOWER AND SHOWER CHAIR. MODIFIED KIRK INDEX SCORE IS 91/100. CHAIR RISE TEST AT 2 STANDS IN 30 SECONDS, REPORTS SOB AND NELLY AT 12/20 WITH MINIMAL EXERTION. PATIENT ALSO HAS A COMPRESSION PUMP REPORTS HE DOES COMPRESSIONS FOR HIS LEGS 2X A DAY. MODIFIED FUNCTIONAL REACH SCORE AT 4 INCHES. PATIENT WAS EDUCATED ON FALL PREVENTION AND ENERGY CONSERVATION TECHNIQUES, ADL RETRAINING AND SAFETY WITH USE OF ASSISTIVE DEVICE. RECOMMENDED ASSISTIVE DEVICE GIVE AND INITIATED HOME EXERCISE PROGRAM FOCUSING ON FLEXIBILITY, RANGE OF MOTION AND STRENGTH. PATIENT RESPONDED WELL WITH GOOD UNDERSTANDING.</paragraph><paragraph></paragraph><paragraph>PATIENT WILL BENEFIT FROM SKILLED OT SERVICES TO ADDRESS RECENT DECLINE IN STRENGTH, ACTIVITY TOLERANCE, SAFETY AT HOME, ADL DEFICITS, SAFETY AT HOME, EDUCATION FOR FALL PREVENTION, ENERGY CONSERVATION, HOME EXERCISE PROGRAM TO RETURN TO HIGH LEVEL OF INDEPENDENCE AND SAFETY AND PREVENT REHOSPITALIZATION. THIS IS DEPENDENT ON PHYSICIAN APPROVAL AND TEAM DISCUSSION.</paragraph> Encounters Start Date/Time End Date/Time Encounter Type Admission Type Attending [facility] Care Department Encounter ID Discharge Date Discharge Status Discharge Condition Discharge Reason Percent Goals Met 2025-06-21 00:00:00 2025-08-19 00:00:00 Outpatient NEELIMA MONDRAGON [facility] [id number] 100.00
== END 2025-07-05 15:04 | disposition swing bed (61) | DRG 291 ==
LOC: ANHED 19:15 → ANHIMU 20:48 → ANH3MEDSUR 06-28 23:47
PROVIDERS: Emergency Medicine; Internal Medicine; Internal Medicine Nephrology; Nurse Practitioner Acute Care; Student in an Organized Health Care Education/Training Program; Admitting Provider General Practice; Emergency Provider Emergency Medicine; PCP Family Medicine; Visit Provider Internal Medicine
DX: I13.0 Hypertensive heart and chronic kidney disease with heart failure and stage 1 through stage 4 chronic kidney disease, or unspecified chronic kidney disease (principal); I50.33 Acute on chronic diastolic (congestive) heart failure; E87.1 Hypo-osmolality and hyponatremia; I48.20 Chronic atrial fibrillation, unspecified; N17.9 Acute kidney failure, unspecified; D61.818 Other pancytopenia; Z68.41 Body mass index [BMI] 40.0-44.9, adult; N18.30 Chronic kidney disease, stage 3 unspecified; I25.118 Atherosclerotic heart disease of native coronary artery with other forms of angina pectoris; I27.20 Pulmonary hypertension, unspecified; I36.1 Nonrheumatic tricuspid (valve) insufficiency; I67.2 Cerebral atherosclerosis; E87.5 Hyperkalemia; E11.22 Type 2 diabetes mellitus with diabetic chronic kidney disease; E11.40 Type 2 diabetes mellitus with diabetic neuropathy, unspecified; E78.5 Hyperlipidemia, unspecified; E66.01 Morbid (severe) obesity due to excess calories; K21.9 Gastro-esophageal reflux disease without esophagitis; K74.60 Unspecified cirrhosis of liver; N40.1 Benign prostatic hyperplasia with lower urinary tract symptoms; R33.8 Other retention of urine; R31.0 Gross hematuria; R29.6 Repeated falls; Z20.822 Contact with and (suspected) exposure to COVID-19; M17.9 Osteoarthritis of knee, unspecified; G47.33 Obstructive sleep apnea (adult) (pediatric); S32.592D Other specified fracture of left pubis, subsequent encounter for fracture with routine healing; S32.402D Unspecified fracture of left acetabulum, subsequent encounter for fracture with routine healing; Z79.4 Long term (current) use of insulin; Z79.01 Long term (current) use of anticoagulants; I25.2 Old myocardial infarction; Z85.528 Personal history of other malignant neoplasm of kidney; Z85.46 Personal history of malignant neoplasm of prostate; Z95.5 Presence of coronary angioplasty implant and graft; Z95.1 Presence of aortocoronary bypass graft
CPT/HCPCS: 36415; 36600; 71046; 74018; 76770; 80048; 80053; 80069; 81001; 82533; 82550; 82570; 82728; 82784; 82805; 82948; 83540; 83550; 83605; 83735; 83880; 83930; 83935; 84155; 84156; 84165; 84166; 84300; 84443; 84484; 84540; 85018; 85025; 85055; 85610; 85730; 85999; 86140; 86334; 86335; 86850; 86900; 86901; 87040; 87637; 93005; 96361; 96374; 96376; 97110; 97116; 97162; 97166; 97530; 97535; 99212; 99285; A9270; G0378; G0463; J1815; J1938; J7030

== ENCOUNTER 2025-07-05 15:38 | Inpatient (IN) | payer MEDICARE, SELFPAY ==
--- NOTE | ~2025-07-05 | CT_ITS ---
EXAMINATION: CT abdomen pelvis wo con DATE: 07/08/2025 11:03 INDICATION: Gross hematuria. Pelvic pain. TECHNIQUE: Computed tomography (CT) of the abdomen and pelvis was performed without intravenous contrast. Automated exposure control and iterative reconstruction technique were employed. The dose-length product was 1607.64 mGy-cm. COMPARISON: 12/20/2022 FINDINGS: Cardiomegaly. Atherosclerotic coronary artery calcifications. Median sternotomy wires and changes of prior coronary artery bypass grafting. Aortic valve calcific location. No pericardial effusion. Small bilateral posterior layering pleural effusions with dependent atelectasis in bilateral lower lobes. Eventration of the left hemidiaphragm. Mild right gynecomastia. Subtle liver surface nodularity consistent with cirrhosis. Gallbladder, spleen, pancreas and bilateral adrenal glands are normal. 4.4 cm right renal cyst. Mild bilateral hydronephrosis. No evident urolithiasis. High attenuation material surrounding a Valenzuela catheter bulb within the bladder which could represent clot or neoplasm. Metallic densities in the prostate which could represent surgical clips related to prior prostatectomy, brachial therapy seeds or fiducials markers. Bowels including the appendix are normal. No pathologically enlarged abdominal or pelvic lymphadenopathy. There is diffuse body wall edema and additional perirectal edema in the deep pelvis. Small amount of perihepatic ascites. No intraperitoneal abscess or free intraperitoneal gas. There is extensive calcified atherosclerosis of the normal caliber aorta and many of the other arteries. Moderate lumbar and lower thoracic spondylosis. Bipolar type right hip hemiarthroplasty. 8.3 x 4.4 x 3.8 cm fluid collection along the recent surgical wound lateral to the right greater trochanter which could represent a postoperative hematoma/stroma or abscess in the appropriate clinical setting. IMPRESSION: 1. Mild bilateral hydronephrosis without evident obstructing urolithiasis. This likely related to bladder outlet obstruction with soft tissue density other mass and/or clot in the bladder surrounding the bulb and distal tip of a Valenzuela catheter. 2. Small bilateral pleural effusions, small amount of perihepatic ascites and extensive body wall and perirectal soft tissue edema which could relate to congestive heart failure and/or cirrhosis. 3. Cardiomegaly. 4. 8.3 x 4.4 x 3.8 cm fluid collection along a subcutaneous surgical scar overlying the right greater trochanter most likely postoperative hematoma/stroma related to recent bipolar type right hip hemiarthroplasty placement although differential would include abscess in the appropriate clinical setting. Reviewed, dictated and finalized at location A. IMPRESSION: 1. Mild bilateral hydronephrosis without evident obstructing urolithiasis. This likely related to bladder outlet obstruction with soft tissue density other ma ss and/or clot in the bladder surrounding the bulb and distal tip of a Valenzuela ca theter. 2. Small bilateral pleural effusions, small amount of perihepatic ascites and e xtensive body wall and perirectal soft tissue edema which could relate to conge stive heart failure and/or cirrhosis. 3. Cardiomegaly. 4. 8.3 x 4.4 x 3.8 cm fluid collection along a subcutaneous surgical scar overl trey the right greater trochanter most likely postoperative hematoma/stroma rel ated to recent bipolar type right hip hemiarthroplasty placement although diffe samara would include abscess in the appropriate clinical setting.
--- OUTSIDE RECORDS SUMMARY | 2025-07-05 15:48 | XMS_ITS | Clinical Summary ---
Author Organization [facility] Address [address] [place] [address] Care Team Providers Care General Surgeon Name Role Phone Leonila Chapa MD Primary Care Provider [phone] Social History Tobacco Use Types Packs/Day Years [...] patient's age to complete this topic Insurance BLUE CROSS BLUE SHIELD MEDICARE Care Teams General Surgeon Relationship Specialty Start Date End Date Leonila Chapa MD [address] [facility] [address] [place] [address] PCP - General FAMILY PRACTICE 06/22/24
--- OUTSIDE RECORDS SUMMARY | 2025-07-05 15:48 | XMS_ITS | Encounter Summary ---
Author Organization [facility] Address [address] [place] [address] Care Team Providers Care Taxation Inspector Name Role Phone Leonila Chapa MD Primary Care Provider Chinmay Shannon DPM Unavailable [phone] Zach Ojeda Unavailable [phone] Yahaira Westfall MD Unavailable [phone] Encounter Details Date Type Department Care Team (Late st Contact Info) Description 05/16/2018 Orders Only [facility] [address] [place] [id number] Scanning, Provider Social History Tobacco Use Types Packs/Day Years Used Date Smoking Tobacco: Never Smokeless Tobacco: Never Alcohol Use Standard Drinks/Week Comments Yes 2 (1 standard drink = 0.6 oz pur e alcohol) seldom Sex and Gender Information Value Date Recorded Sex Assigned at Not on file 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 Gender Identity Not on file Sexual Orientation [...] COVID: Suspected 10/14/2023 10/14/2023 10/14/2023 3:53 AM 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[employer]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 [employer]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 documented as of this encounter Care Teams Taxation Inspector Relationship Specialty Start Date End Date Leonila Chapa MD [address] [place] [address] [address] [place] [address] PCP - General Family Medicine 12/29/17 Chinmay Shannon DPM [address] [place] [address] Referring Physician Foot and Ankle Surg 08/26/22 Zach Ojeda PA [address] [facility] [facility] [address] [facility] [place] [address] Orthopedic Surgery 12/06/22 Yahaira Westfall MD [address] [place] [address] Consulting Physician Internal Medicine 05/20/23 documented as of this encounter
--- OUTSIDE RECORDS SUMMARY | 2025-07-05 15:48 | XMS_ITS | Encounter Summary ---
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 Gender Identity Not on file Sexual Orientation [...] COVID: Suspected 10/14/2023 10/14/2023 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
--- OUTSIDE RECORDS SUMMARY | 2025-07-05 15:48 | XMS_ITS | Clinical Summary ---
Author Organization [facility] Address [address] [facility] [place] [address] Care Team Providers Care Visual Coordinator Name Role Phone Leonila Chapa MD Primary Care Provider + Source Comments [facility],non-owned Affiliates and Associated Physician Practices is amultiple site organization consisting of ambulatory clinics and hospital sitesin [place], [place], [place] and [place]. This disclosure is being madepursuant to the Care Everywhere program and may not contain all information available regarding this patient. 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
--- OUTSIDE RECORDS SUMMARY | 2025-07-05 15:48 | XMS_ITS | Encounter Summary ---
Author Organization [facility] Healthcare Address [address] [place] [address] Care Team Providers Care Horse Riding Coach Or Instructor Name Role Phone Leonila Chapa MD Primary Care Provider Chinmay ShannonM Unavailable [phone] Zach Ojeda Unavailable [phone] Yahaira Westfall MD Unavailable [phone] Encounter Details Date Type Department Care Team (Late st Contact Info) Description 05/21/2021 Telephone [facility] - Interventional Radiology [address] [place] [address] Cristina Guzman RN Social History Tobacco Use Types Packs/Day Years Used Date Smoking Tobacco: Never Smokeless Tobacco: Never Alcohol Use Standard Drinks/Week Comments Yes 2 (1 standard drink = 0.6 oz pur e alcohol) seldom Sex and Gender Information Value Date Recorded Sex Assigned at Not on file Legal Sex Male 7:32 PM COMMUNICATIONS SPECIALIST Gender Identity Not on file Sexual Orientation Not on file documented as of this encounter Plan of Treatment Not on file documented as of this encounter Visit Diagnoses Not on filedocumented in this encounter Additional Health Concerns Infection Onset Date Last Indicated Resolved Time COVID: Suspected 03/16/2022 03/16/2022 03/16/2022 5:28 PM CDT COVID: Suspected 10/14/2023 10/14/2023 10/14/2023 3:53 AM COMMUNICATIONS SPECIALIST documented as of this encounter Care Teams Horse Riding Coach Or Instructor Relationship Specialty Start Date End Date Leonila Chapa MD [address] [facility] [address] [place] [address] PCP - General Family Medicine 12/29/17 Chinmay Shannon, SILVA [address] [place] [address] Referring Physician Foot and Ankle Surg 08/26/22 Zach Ojeda PA [address] [facility] [place] [address] Orthopedic Surgery 12/06/22 Yahaira Westfall MD [address] [place] [address] Consulting Physician Internal Medicine 05/20/23 documented as of this encounter
--- OUTSIDE RECORDS SUMMARY | 2025-07-05 15:48 | XMS_ITS | Encounter Summary ---
Author Organization [facility] Healthcare Address [address] [place] [address] Care Team Providers Care Hop Picker Name Role Phone Leonila Chapa MD Primary Care Provider Chinmay ShannonM Unavailable [phone] Zach Ojeda Unavailable [phone] Yahaira Westfall MD Unavailable [phone] Encounter Details Date Type Department Care Team (Late st Contact Info) Description 05/29/2021 Telephone [facility] - Interventional Radiology [address] [place] [address] Cristina Guzman RN Social History Tobacco Use Types Packs/Day Years Used Date Smoking Tobacco: Never Smokeless Tobacco: Never Alcohol Use Standard Drinks/Week Comments Yes 2 (1 standard drink = 0.6 oz pur e alcohol) seldom Sex and Gender Information Value Date Recorded Sex Assigned at Not on file Legal Sex Male 7:32 PM SHOE CASER Gender Identity Not on file Sexual Orientation Not on file documented as of this encounter Plan of Treatment Not on file documented as of this encounter Visit Diagnoses Not on filedocumented in this encounter Additional Health Concerns Infection Onset Date Last Indicated Resolved Time COVID: Suspected 03/16/2022 03/16/2022 03/16/2022 5:28 PM CDT COVID: Suspected 10/14/2023 10/14/2023 10/14/2023 3:53 AM SHOE CASER documented as of this encounter Care Teams Hop Picker Relationship Specialty Start Date End Date Leonila Chapa MD [address] [facility] [address] [place] [address] PCP - General Family Medicine 12/29/17 Chinmay Shannon, SILVA [address] [place] [address] Referring Physician Foot and Ankle Surg 08/26/22 Zach Ojeda PA [address] [facility] [facility] [address] [facility] [place] [address] Orthopedic Surgery 12/06/22 Yahaira Westfall MD [address] [facility] [place] [address] Consulting Physician Internal Medicine 05/20/23 documented as of this encounter
--- OUTSIDE RECORDS SUMMARY | 2025-07-05 15:48 | XMS_ITS | Clinical Summary ---
Author Organization [facility] [address] Address [address] [place] [address] Care Team Providers Care Structural Steel Worker Name Role Phone Leonila Chapa MD Primary Care Provider Chinmay Shannon DPM Unavailable [phone] Zach Ojeda Unavailable Yahaira Westfall MD Unavailable [phone] Allergies Active Allergy Reactions Criticality Noted Date Comments Atorvastatin Other (See comments) Low Reaction: Penicillins Anaphylaxis High 03/19/2013 Dcwpefk-Edd-Idl Reductase Inhibitors Muscle pain Medium 01/20/2018 Atorvastatin [...] 12 hr tabletIndicatio ns:Coronary artery disease of [place] artery of [place] heart with stable angina pectoris TAKE 1 [...] 10/15/2023 Assessment & Plan (10/15/2023 4:30 PM EDGE BEADER): Newly noted, unclear etiology. Patient reports symptoms [...] 10/14/2023 Assessment & Plan (10/15/2023 4:23 PM EDGE BEADER): Mechanical as per history. Less likely orthostatic (though has history of 2-3 poor intake and AALIYAH), much less likely neurogenic or cardiogenic. HCT, c-spine CT, XR pelvis & L humerus without fracture and without intracranial bleed -Monitor L orbit hematoma, patient denies visual changes or headache. -PT/OT recommending home with HH AALIYAH (acute kidney injury) 10/14/2023 Assessment & Plan (10/15/2023 4:23 PM EDGE BEADER): Likely pre-renal in the setting of 2-3 days of N/V, and then poor intake after fall -Monitor off spironolactone and Lasix, instructed to resume 10/17 with slowly improving AALIYAH Nausea 10/14/2023 Assessment & Plan (10/15/2023 4:24 PM EDGE BEADER): Nausea/vomiting x2-3 days. Non bloody non bilious. Unclear etiology but more likely viral gastroenteritis. Resolved and patient tolerating diet. Leg swelling 10/14/2023 Assessment & Plan (10/15/2023 4:26 PM EDGE BEADER): Bilateral, L>R, chronic. Intermittent gets worse. He [...] 10/14/2023 Assessment & Plan (10/14/2023 11:06 AM EDGE BEADER): Outpatient f/u A-fib 10/14/2023 Assessment & Plan (10/14/2023 11:08 AM EDGE BEADER): Chronic, continuing the home Eliquis. Based on PT and risk of repeat falls, may need risks/benefits couselling Follow-up examination 10/14/2023 Assessment & Plan (10/15/2023 4:28 PM EDGE BEADER): CT 10/14/23 incidentally noted a Serpiginous tubular [...] 10/14/2023 Assessment & Plan (10/15/2023 4:28 PM EDGE BEADER): CABG in 2018. BNP around prior baseline, [...] (08/14/2022): Added automatically from request for surgery [id number] Pre-op evaluation 06/26/2022 Demand ischemia of myocardium [...] 12/29/2017 Assessment & Plan (10/15/2023 4:22 PM EDGE BEADER): Uses long acting 25u BID + SSI [...] Type Department Care Team Description 06/23/2025 Telephone [facility] Cardiology [address] [place] [address] Mimi Conde NP 06/23/2025 Telephone [place] [address] [place] [address] Juwan Brown MD 06/13/2025 Orders Only [address] [phone] Yonathan Vences MD 05/24/[address] [phone] Juwan Brown MD 05/23/2025 Results Follow-Up [address] [phone] Mimi Conde NP Basic metabolic panel 05/20/[address] [phone] Juwan Brown MD 05/13/2025 2:00 PM CDT Office Visit [address] [address] Mimi Conde NP Chronic diastolic heart failure (HCC) (Primary Dx); Edema, lower extremity; Paroxysmal atrial fibrillation (HCC); Chronic anticoagulation; Coronary artery disease of [place] artery of [place] heart with stable angina pectoris 05/10/[address] [address] Juwan Brown MD 04/13/2025 Orders Only [facility] Health Information Management [address] [place] [address] Scanning, Provider 04/07/[address] [phone] Juwan Brown MD from Last 3 Months [...] on file Legal Sex Male 7:32 PM EDGE BEADER Gender Identity Not on file Sexual Orientation Not on file Obstetrics History Last Filed Vital Signs Vital Sign Reading Time Taken Comments Blood Pressure 110/64 05/13/2025 2:08 PM CDT Pulse 86 05/13/2025 2:08 PM CDT Temperature 36.2 C (97.2 F) 10/15/2023 3:35 PM EDGE BEADER Respiratory Rate 18 10/15/2023 8:00 AM EDGE BEADER Oxygen Saturation 97% 05/13/2025 2:08 PM CDT [...] Screening Discontinued Medical Devices Implanted Type Area Economic Analyst Device Identifier Shelf Expiration Date Model / Serial / Lot Daig [employer]ael[employer] [id number] Angio-Seal Vip Bondek-Plus 6fr .035in 70cm Hemostatic Latex Free - [id number] Implanted:Qty: 1 on 01/06/2019 by Sanjiv Starkey MD at [facility] Right: Groin [employer] 08/05/2019 [id number] / / [id number] [employer] Misael Angio-Seal Vip 6fr Closere Device [id number] - [id number] Implanted:Qty: 1 on 08/07/2022 by Sanjiv Starkey MD at [facility] 03/05/2023 [id number] / / [id number] [employer] Cement Bone Simplex Gentamicin High Viscosity 40gm 6195-1-001 - [id number] Implanted:Qty: 1 on 12/03/2022 by Thuan Servin MD at [facility] Left: Knee [employer] 05/05/2024 [id number] / / [id number] [employer] Attune Cruciate Retain Cementless Knee Left 9 Component Femoral [id number] - [id number] Implanted:Qty: 1 on 12/03/2022 by Thuan Servin MD at [facility] Left: Knee [employer] 06/05/2031 [id number] / / [id number] [employer] Attune 41mm Cemented Medialize Knee Dome Patellar Aox Sterile [id number] - [id number] Implanted:Qty: 1 on 12/03/2022 by Thuan Servin MD at [facility] Left: Knee [employer] 03/05/2027 [id number] / / [id number] [employer] Attune 10mm Cruciate Retaining Fix Bearing Knee 9 Insert Tibial [id number] - [id number] Implanted:Qty: 1 on 12/03/2022 by Thuan Servin MD at [facility] Left: Knee [employer] 08/05/2027 [id number] / / [id number] 1506-21-010 Attune Tibial Base Affixium Fixed Bearing Size 10 Implanted:Qty: 1 on 12/03/2022 by Thuan Servin MD at [facility] Left: Knee [employer] [id number] 09/04/2032 [id number] / N/A / [id number] Procedures Procedure Name Priority Date/Time Associated Diagnosis Comments CARDIOLOGY DOCUMENT SCAN Routine 06/01/2025 4:41 PM CDT BASIC METABOLIC PANEL Routine 05/21/2025 7:17 AM CDT Chronic diastolic heart failure (HCC) CARDIOLOGY DOCUMENT SCAN 04/13/2025 LIPID PANEL Routine 12/06/2024 1:28 PM EDGE BEADER HEMOGLOBIN A1C STAT 10/14/2023 2:19 AM EDGE BEADER COLONOSCOPY 09/24/2023 2:16 PM EDGE BEADER from Last 3 Months or Most Recently [...] CDT FASTING:NO FASTING: NO us Mimi Conde VP ANCILLARY LAB BLOOD ORDERABLES Martha l Result [facility] [address] [phone] * Cardiology Document Scan (04/13/2025) Anatomical Region Laterality Modality Other Provider Scanning CV CARDIAC SERVICES PROCEDURES Final Result * (ABNORMAL) Lipid panel (12/06/2024 1:28 PM EDGE BEADER) SCRIBED Cholesterol, Total 107 30 - 199 mg/dL [facility] SCRIBED Triglycerides 75 <=149 mg/dL [facility] SCRIBED HDL 37(A) >=40 mg/dL [facility] SCRIBED LDL 54 <=129 mg/dL [facility] Scribed Non-HDL Cholesterol 70 NONE mg/dL [facility] SCRIBED Total Cholesterol/HDL Ratio 107 NONE [facility] Blood Historical Provider LAB BLOOD ORDERABLES Edit ed Result - Final [facility] * (ABNORMAL) Hemoglobin A1c (10/14/2023 2:19 AM EDGE BEADER) Hgb A1C 6.4(H) 4.0 - 5.6 % [facility] Estimated Average Glucose 137 mg/dL [facility] Comment: The ADA recommends reporting an estimated Average Glucose (eAG) with all Hemoglobin A1c results using the equation derived from a study of 507 normal and diabetic adults. Minority populations were underrepresented and children were not included. (Diabetes Care 2020; 43(S1): S66-S76). The eAG is not equivalent to a fasting glucose. Blood 10/14/2023 2:19 AM EDGE BEADER 10/14/2023 2:28 AM EDGE BEADER Maribell Basilio MD LAB BLOOD ORDERABLES Final Result [facility] Department [place] [address] * COLONOSCOPY (09/24/2023 2:16 PM EDGE BEADER) Anatomical Region Laterality Modality Other Narrative Procedure Note Alli Ervin MD - 09/24/2023 2:16 PM [facility] Patient Name: Lopez Guzman Procedure Date: 09/24/2023 2:16 PM Date of : 1945 Admit Type: Outpatient Age: 77 Gender: Male Attending MD: Alli Ervin M.D. Room: [facility] ENDOSCOPY ROOM 9 Note Status: Finalized Procedure: [...] scope was passed under direct vision.The CF [id number] endoscope was introduced through the anus and advanced to the cecum, identified by appendiceal orifice and ileocecal valve. The colonoscopy was performed without difficulty. The patient tolerated the procedure well. The qualityof the bowel preparation was evaluated using the BBPS ([place] Bowel Preparation Scale) with scores of:Right Colon [...] On: 09/24/2023 2:16 PM Recognized by the [employer] Society for G[employer]intestinal Endoscopy for promoting quality in endoscopy Alli Ervin MD ENDOSCOPY PROCEDURES Final Result from Last 3 Months or Most Recently Relevant to Health Maintenance Insurance [place] MEDICARE [place] [facility] OTHER Address: [address] [place] [address] [facility] MEDICARE MEDICARE MEDICARE [employer] MEDICARE SUPPLEMENT Advance Directives For more information, please contact: [phone] Documents on File Type Date Recorded Patient Yarn Rewinder Expl anation Power of Fur Puller 08/15/2021 7:19 AM * Full Code (Latest [...] Butler Daughter Health Care Agent Care Teams Structural Steel Worker Relationship Specialty Start Date End Date Leonila Chapa MD [address] [facility] [address] [place] [address] PCP - General Family Medicine 12/29/17 Chinmay Shannon DPM [address] [place] [address] Referring Physician Foot and Ankle Surg 08/26/22 Zach Ojeda PA [address] [facility] [address] [address] [place] [address] Orthopedic Surgery 12/06/22 Yahaira Westfall MD [address] [place] [address] Consulting Physician Internal Medicine 05/20/23
--- OUTSIDE RECORDS SUMMARY | 2025-07-05 15:48 | XMS_ITS | Encounter Summary ---
Author Organization [facility] Healthcare Address [address] [place] [address] Care Team Providers Care Dyeing Machine Feeder Name Role Phone Leonila Chapa MD Primary Care Provider Chinmay ShannonM Unavailable [phone] Zach Ojeda Unavailable [phone] Yahaira Westfall MD Unavailable [phone] Encounter Details Date Type Department Care Team (Late st Contact Info) Description 06/29/2021 Telephone [facility] - Interventional Radiology [address] [place] [address] Cristina Guzman RN Social History Tobacco Use Types Packs/Day Years Used Date Smoking Tobacco: Never Smokeless Tobacco: Never Alcohol Use Standard Drinks/Week Comments Yes 2 (1 standard drink = 0.6 oz pur e alcohol) seldom Sex and Gender Information Value Date Recorded Sex Assigned at Not on file Legal Sex Male 7:32 PM COMMERCIAL INSTRUCTOR SUPERVISOR Gender Identity Not on file Sexual Orientation Not on file documented as of this encounter Plan of Treatment Not on file documented as of this encounter Visit Diagnoses Not on filedocumented in this encounter Additional Health Concerns Infection Onset Date Last Indicated Resolved Time COVID: Suspected 03/16/2022 03/16/2022 03/16/2022 5:28 PM CDT COVID: Suspected 10/14/2023 10/14/2023 10/14/2023 3:53 AM COMMERCIAL INSTRUCTOR SUPERVISOR documented as of this encounter Care Teams Dyeing Machine Feeder Relationship Specialty Start Date End Date Leonila Chapa MD [address] [facility] [address] [place] [address] PCP - General Family Medicine 12/29/17 Chinmay Shannon, SILVA [address] [place] [address] Referring Physician Foot and Ankle Surg 08/26/22 Zach Ojeda PA [address] [facility] [address] [facility] [place] [address] Orthopedic Surgery 12/06/22 Yahaira Westfall MD [address] [facility] [place] [address] Consulting Physician Internal Medicine 05/20/23 documented as of this encounter
--- OUTSIDE RECORDS SUMMARY | 2025-07-05 15:48 | XMS_ITS | Clinical Summary ---
Author Organization [facility] Address [address] [place] [address] Phone Care Team Providers Care Senior Living Advisor Name Role Phone Leonila Chapa MD Primary Care Provider [phone] Social History Tobacco Use Types Packs/Day Years Used Date Smoking Tobacco: Never Assessed Sex and Gender Information Value Date Recorded Sex Assigned at Not on file Legal Sex Male 3:05 AM CLEARING HAND Gender Identity Not on file Sexual Orientation Not on file Plan of Treatment Health Maintenance Due Date Last Done Comments Hepatitis C Virus (HCV) Screening 1945 Pneumococcal Immunization (50+ years) (1 of 1 - PCV) 12/09/1995 Zoster Immunization (1 of 2) 12/09/1995 Medicare Initial AWV [id number] 12/05/2011 Respiratory Syncytial Virus (RSV) Immunization (Adult) (1 [...] age to complete this topic Insurance MEDICARE [facility] Care Teams Senior Living Advisor Relationship Specialty Start Date End Date Leonila Chapa MD [address] [facility] [address] [place] [address] PCP - General Family Medicine 10/15/23
--- OUTSIDE RECORDS SUMMARY | 2025-07-05 15:48 | XMS_ITS | Encounter Summary ---
Author Organization [facility] Healthcare Address [address] [place] [address] Care Team Providers Care Bracelet And Brooch Maker Name Role Phone Leonila Chapa MD Primary Care Provider Chinmay Shannon DPM Unavailable [phone] Zach Ojeda Unavailable [phone] Yahaira Westfall MD Unavailable [phone] Encounter Details Date Type Department Care Team (Late st Contact Info) Description 04/13/2025 Orders Only [facility] Health Information Management [address] [place] [address] Scanning, Provider Social History Tobacco Use [...] on file Legal Sex Male 7:32 PM PLUMBING MANAGER Gender Identity Not on file Sexual Orientation [...] on filedocumented in this encounter Care Teams Bracelet And Brooch Maker Relationship Specialty Start Date End Date Leonila Chapa MD [address] [id number] PCP - General Family Medicine 12/29/17 Chinmay Shannon DPM [address] [place] [address] Referring Physician Foot and Ankle Surg 08/26/22 Zach Ojeda PA [address] [facility] [address] [place] [address] Orthopedic Surgery 12/06/22 Yahaira Westfall MD [address] [facility] [place] [address] Consulting Physician Internal Medicine 05/20/23 documented as of this encounter
--- OUTSIDE RECORDS SUMMARY | 2025-07-05 15:48 | XMS_ITS | Encounter Summary ---
Author Organization [facility] Healthcare Address [address] [place] [address] Care Team Providers Care Endocrinology Nurse Name Role Phone Leonila Chapa MD Primary Care Provider Chinmay Shannon DPM Unavailable [phone] Zach Ojeda Unavailable [phone] Yahaira Westfall MD Unavailable [phone] Encounter Details Date Type Department Care Team (Late st Contact Info) Description 06/28/2021 Telephone [facility] - Interventional Radiology [address] [place] [address] Cristina Guzman RN Social History Tobacco Use Types Packs/Day Years Used Date Smoking Tobacco: Never Smokeless Tobacco: Never Alcohol Use Standard Drinks/Week Comments Yes 2 (1 standard drink = 0.6 oz pur e alcohol) seldom Sex and Gender Information Value Date Recorded Sex Assigned at Not on file Legal Sex Male 7:32 PM [employer]LOBAL CHIEF [employer]PERIENCE OFFICER Gender Identity Not on file Sexual Orientation Not on file documented as of this encounter Plan of Treatment Not on file documented as of this encounter Results * COVID-19 Coronavirus RNA Nasopharyngeal (06/29/2021 2:00 PM CDT) COVID-19 RNA Not Detected [facility] Comment: Interpretive Data Synonyms for this test include: PCR and NAAT. Testing performed by the [facility] Molecular Infectious Disease Laboratory. The 2019-Novel [...] on November 09, 2020. Testing performed by: [facility], [address] [place] [address], [id number] First COVID-19 test? Unknown [facility] Comment:Testing performed by : [facility], [address] [place] [address], [id number] Employeed in healthcare? No [facility] Comment:Testing performed by : [facility], [address] [place] [address], [id number] status? No [facility] Comment:Testing performed by : [facility], [address] [place] [address], [id number] Group care resident? No [facility] Comment:Testing performed by : [facility], [address] [place] [address], [id number] Hospitalized? No [facility] Comment:Testing performed by : [facility], [address] [place] [address], [id number] Is patient in ICU? No [facility] Comment:Testing performed by : [facility], [address] [place] [address], [id number] Symptomatic as defined by CDC? No [facility] Comment:Testing performed by : [address], [address] Nasopharyngeal 06/29/2021 2: 00 PM CDT 06/29/2021 4:51 PM CDT Brianna [facility] - 06/29/2021 9:35 PM CDT What is the reason for testing?->Screening prior to scheduled procedure or surgery (batch) Nestor Whittington MD LAB MICROBIOLOGY - GENERA L ORDERABLES Final Result Performing Organization Address [facility]/ZIP Co de Phone Number [facility] [address] Department [place] [address] * Protime-INR (06/29/2021 12:12 PM CDT) Pathologist [facility] PT 12.4 9.5 - 13.6 sec [facility] INR 1.1 0.9 - 1.2 [facility] Comment: Interpretive data Oral anticoagulant therapeutic [...] ORDERABLES Martha l Result Performing Organization Address [facility] Co de Phone Number [facility] [address] Department [place] [address] * (ABNORMAL) CBC with auto differential (06/29/2021 12:12 PM CDT) Pathologist [facility] WBC 3.8 3.8 - 9.9 K/cumm [facility] Hgb 10.8(L) 13.0 - 17.5 g/dL [facility] Hct 34.0(L) 38.9 - 50.3 % [facility] Plt 154 150 - 400 K/cumm [facility] MPV 9.2 9.1 - 12.3 fL [facility] RBC 3.47(L) 4.30 - 5.80 M/cumm [facility] MCV 98.0(H) 81.3 - 96.4 fL [facility] MCH 31.1 27.1 - 33.3 pg [facility] MCHC 31.8(L) 32.3 - 35.7 g/dL [facility] RDW CV 14.2 11.1 - 14.9 % [facility] RDW SD 50.5(H) 35.7 - 48.1 fL [facility] NRBC abs 0.00 0.00 - 0.01 K/cumm [facility] Blood 06/29/2021 12:1 2 PM CDT 06/29/2021 12:12 PM CDT us Nestor Whittington MD LAB BLOOD ORDERABLES Martha l Result [facility] [address] Department [place] [address] * (ABNORMAL) Basic metabolic panel (06/29/2021 12:12 PM CDT) Sodium 142 135 - 145 mmol/L [facility] Potassium, pl 4.2 3.3 - 4.9 mmol/L [facility] Chloride 102 97 - 110 mmol/L [facility] CO2 35(H) 22 - 32 mmol/L [facility] Anion gap 5 2 - 15 mmol/L [facility] BUN 18 8 - 25 mg/dL [facility] Creatinine 1.13 0.80 - 1.30 mg/dL [facility] Glucose 145 70 - 199 mg/dL [facility] Comment: Interpretive Data Fasting glucose >/= [...] 2017. Calcium 9.1 8.5 - 10.3 mg/dL [facility] Blood 06/29/2021 12:1 2 PM CDT 06/29/2021 12:12 PM CDT Nestor Whittington MD LAB BLOOD ORDERABLES Martha l Result [facility] [address] Department [place] [address] documented in this encounter Visit Diagnoses Diagnosis Right renal mass- Primary Unspecified disorder of kidney and ureter Right renal mass Unspecified disorder of kidney and ureter documented in this encounter Additional Health Concerns Infection Onset Date Last Indicated Resolved Time COVID: Suspected 03/16/2022 03/16/2022 03/16/2022 5:28 PM CDT COVID: Suspected 10/14/2023 10/14/2023 10/14/2023 3:53 AM [employer] OFFICER documented as of this encounter Care Teams Endocrinology Nurse Relationship Specialty Start Date End Date Leonila Chapa MD [address] [address] PCP - General Family Medicine 12/29/17 Chinmay Shannon DPM [address] [place] [address] Referring Physician Foot and Ankle Surg 08/26/22 Zach Ojeda PA [address] [place] [address] Orthopedic Surgery 12/06/22 Yahaira Westfall MD [address] [place] [address] Consulting Physician Internal Medicine 05/20/23 documented as of this encounter
--- OUTSIDE RECORDS SUMMARY | 2025-07-05 15:48 | XMS_ITS ---
Author Organization [facility] [address] Address [address] [place] [address] Care Team Providers Care Manufacturing Lead Name Role Phone Leonila Chapa MD Primary Care Provider Chinmay Shannon DPM Unavailable [phone] Zach Ojeda Unavailable Yahaira Westfall MD Unavailable [phone] Active Problems Problem Noted Date Diagnosed Date Pancytopenia 10/15/2023 Assessment & Plan (10/15/2023 4:30 PM ROLL DOUGH DIVIDER): Newly noted, unclear etiology. Patient reports symptoms [...] 10/14/2023 Assessment & Plan (10/15/2023 4:23 PM ROLL DOUGH DIVIDER): Mechanical as per history. Less likely orthostatic (though has history of 2-3 poor intake and AALIYAH), much less likely neurogenic or cardiogenic. HCT, c-spine CT, XR pelvis & L humerus without fracture and without intracranial bleed -Monitor L orbit hematoma, patient denies visual changes or headache. -PT/OT recommending home with HH AALIYAH (acute kidney injury) 10/14/2023 Assessment & Plan (10/15/2023 4:23 PM ROLL DOUGH DIVIDER): Likely pre-renal in the setting of 2-3 days of N/V, and then poor intake after fall -Monitor off spironolactone and Lasix, instructed to resume 10/17 with slowly improving AALIYAH Nausea 10/14/2023 Assessment & Plan (10/15/2023 4:24 PM ROLL DOUGH DIVIDER): Nausea/vomiting x2-3 days. Non bloody non bilious. Unclear etiology but more likely viral gastroenteritis. Resolved and patient tolerating diet. Leg swelling 10/14/2023 Assessment & Plan (10/15/2023 4:26 PM ROLL DOUGH DIVIDER): Bilateral, L>R, chronic. Intermittent gets worse. He [...] 10/14/2023 Assessment & Plan (10/14/2023 11:06 AM ROLL DOUGH DIVIDER): Outpatient f/u A-fib 10/14/2023 Assessment & Plan (10/14/2023 11:08 AM ROLL DOUGH DIVIDER): Chronic, continuing the home Eliquis. Based on PT and risk of repeat falls, may need risks/benefits couselling Follow-up examination 10/14/2023 Assessment & Plan (10/15/2023 4:28 PM ROLL DOUGH DIVIDER): CT 10/14/23 incidentally noted a Serpiginous tubular [...] 10/14/2023 Assessment & Plan (10/15/2023 4:28 PM ROLL DOUGH DIVIDER): CABG in 2018. BNP around prior baseline, [...] (08/14/2022): Added automatically from request for surgery [id number] Pre-op evaluation 06/26/2022 Demand ischemia of myocardium [...] 12/29/2017 Assessment & Plan (10/15/2023 4:22 PM ROLL DOUGH DIVIDER): Uses long acting 25u BID + SSI [...]
[2025-07-05 16:00] VITALS: BMI 37.5
--- NOTE | 2025-07-05 16:00 | ADMGEN ---
This patient, Lopez Guzman, was admitted to 2nd Floor Room 208-1 as a skilled swing bed. Patient/family oriented to hospital policies and general routines including ID bracelet, bed and alarms, visiting hours, pain management, procedures, bathroom and other care routines, personal items, smoking policy, room service/diet, and visiting hours. Information on how to activate the Rapid Response Team has been discussed. Patient/Family are encouraged to report perceived risks to care and to ask questions if they do not understand what they are told or what they should do.
[2025-07-05 16:10] VITALS: O2SAT 100
[2025-07-05 18:02] VITALS: O2SAT 100
[2025-07-05] MEDS: SODIUM CHLORIDE 1 GM TABLET PO (18:33)
[2025-07-05] MEDS: ACETAMINOPHEN 325 MG TABLET 650 MG PO (18:33)
[2025-07-05] MEDS: TAMSULOSIN HCL 0.4 MG CAPSULE PO (18:34)
[2025-07-05] MEDS: BUMETANIDE 1 MG TABLET 2 MG PO (18:34)
[2025-07-05] MEDS: INSULIN HUMAN LISPRO (*BKC) 1,000 UNITS/10 ML VIAL 2 UNITS SUB-Q (18:35)
[2025-07-05] MEDS: MELATONIN 3 MG TABLET PO (20:12)
[2025-07-05] MEDS: APIXABAN 2.5 MG TABLET 5 MG PO (20:12)
[2025-07-05 20:13] VITALS: PULSE 72
[2025-07-05] MEDS: RANOLAZINE 500 MG TAB.ER.12H PO (20:13)
[2025-07-05] MEDS: INSULIN GLARGINE (*BKC) 1,000 UNITS/10 ML VIAL 25 UNITS SUB-Q (20:14)
[2025-07-06] VITALS (7 sets, daily range): BP systolic 105–118; BP diastolic 48–53; PULSE 55–72; RESP 16–18; TEMP 36.1–36.8; O2SAT 99
--- NOTE | 2025-07-06 07:30 | PM.IMHP ---
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 Patient was hospitalized and discharged to a rehab facility after his recent fractures. Patient was discharged from the rehab facility to home and again presented to the ER on 06/26/2025 with complaints of shortness of breath and decreased urine output. Patient was hospitalized at [facility] from 06/26/2025 to 07/05/2025. Patient was admitted with acute decompensated heart failure and AALIYAH on CKD. Patient was treated with diuresis and supportive care. Patient developed urinary retention with hematuria, urology was consulted, and hematuria resolved prior to admission. Patient's fluid status was improving and his kidney function was close to baseline prior to discharge. Nephrology and urology were both consulted during the admission. Patient was discharged to [facility] for continued rehab. Review of Systems Review of Systems: All systems reviewed & are unremarkable except as noted in HPI and below PMFSH Past Medical History Medical History Hypotension Atrial fibrillation Cirrhosis Pulmonary hypertension Tricuspid regurgitation severe Hyponatremia Acute exacerbation of CHF (congestive heart failure) History of renal cell carcinoma History of prostate cancer Skin tear of right lower leg without complication Pre-ulcerative corn or callous Kidney mass Pancreatic mass Nausea & vomiting Anemia Acquired deformity of left thigh Preoperative clearance Foot lesion Cellulitis Elsa tropicalis infection Fall Bronchitis Elevated carbon dioxide level Alkaline phosphatase elevation Prostate cancer screening Body mass index (BMI) of 40.1 to 44.9 in adult Degenerative joint disease of knee Renal malignant neoplasm Prostate CA Intracranial atherosclerosis Eczema Hypertensive urgency Non-STEMI (non-ST elevated myocardial infarction) Most recent non-STEMI 12/11/2018 Obstructive sleep apnea Intolerant to CPAP Prostate cancer Renal cell carcinoma Elevated PSA, between 10 and less than 20 ng/ml Vertigo Morbid (severe) obesity due to excess calories Abnormality of gait CAD (coronary artery disease) Multivessel coronary artery disease with stents to the proximal and distal LAD, mid right coronary artery July 2014 with prior catheterization performed [facility] January 2018 had severe diffuse 3 vessel coronary artery disease with multiple stenoses of about 70% and mid to distal LAD between previously placed proximal and distal stents, 50-70% diffuse stenosis of the circumflex with a proximal stenosis of: To and total occlusion of a the marginal branch and diffuse distal right coronary artery disease with occluded RPDA referred for CABG DM neuropathy with neurologic complication GERD (gastroesophageal reflux disease) Dyslipidemia Hypertension Surgical History Surgical History History of right hip hemiarthroplasty Status post open reduction with internal fixation of fracture Of left leg at age 21 Stented coronary artery Hx of tonsillectomy S/P CABG (coronary artery bypass graft) (04/2018) YESENIA to LAD, vein graft to OM, radial graft to RPDA, RCA was diffusely diseased and not a great target for bypass, LAD was also diffusely diseased Family History Family History Father Family history of heart disease in male family member before age 55 Acute myocardial infarction Hypertension Mother Family history of heart disease in male family member before age 55 Acute myocardial infarction Emphysema of lung Asthma Sibling Family history of heart disease in male family member before age 55 Acute myocardial infarction Hypertension Polycystic kidney disease Sibling Family history of heart disease in male family member before age 55 Acute myocardial infarction Breast cancer Sibling Emphysema of lung Cerebrovascular accident Son Acute myocardial infarction Social History Social History Social History: He is and lives alone. He has an adult son and a daughter. 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 He is a lifelong nonsmoker and does not drink alcohol. Code status: Full code (he would not want to be on long-term life support or have a tracheostomy or PEG tube.) Surrogate decision maker: Adjacent (son) Smoking status: Never smoker Second hand tobacco smoke exposure: Yes Alcohol intake: never Substance use: never Substance use type: does not use Do You Feel Safe in your Home?: Yes Lack of Transportation: No Lack of Food: Never True Current Housing: I Have Housing Concerned About Future Housing: No Difficulty Paying Gas/Electric Bills: YES Difficulty Paying for Meds: No Currently Unemployed: No Education: Master's Degree or Higher Difficulty w/ Childcare or Family Care: No Living arrangements: alone Occupation/Education: retired Gender identity (if verbalized by the patient): Male Sexual Orientation (if Verbalized by the Patient): Straight or Heterosexual Spiritual care concerns: No Meds Home Medications and Allergies Home Medications ?Medication ?Instructions ?Recorded ?Confirmed ?Type evolocumab 140 mg/mL subcutaneous 140 mg subcut A2AFMEM 05/07/21 07/05/25 History pen injector (Aman Ryder) polysaccharide iron complex 150 mg 150 mg PO DAILY #90 caps 11/22/24 07/05/25 Rx iron capsule (Poly-Iron) nitroglycerin 0.4 mg sublingual See Rx Instructions .Route 04/07/25 07/06/25 Rx tablet .COMPLEX #100 tabs melatonin 3 mg tablet 3 mg PO HS #0 tabs 05/06/25 07/05/25 Rx pantoprazole 40 mg tablet,delayed 40 mg PO QAM #30 tabs 05/06/25 07/05/25 Rx release ranolazine 500 mg tablet,extended 500 mg PO Q12H #60 tabs 05/06/25 07/05/25 Rx release,12 hr blood-glucose sensor (FreeStyle #1 ea 06/01/25 07/05/25 Rx [place] 3 Sensor device) polyethylene glycol 3350 17 gram 17 g PO QAM PRN constipation 06/01/25 07/05/25 History oral powder packet (Miralax) insulin glargine 100 unit/mL 25 unit (0.25 mL) subcut Q12HR #10 06/06/25 07/05/25 Rx subcutaneous solution (Lantus mL U-100 Insulin) apixaban 5 mg tablet (Eliquis) 5 mg PO Q12HR #60 tabs 06/19/25 07/05/25 Rx tamsulosin 0.4 mg capsule 0.4 mg PO QPM #30 caps 06/19/25 07/05/25 Rx sodium chloride 1,000 mg soluble 1,000 mg PO BID #60 tabs 06/23/25 07/05/25 Rx tablet acetaminophen 500 mg tablet 1,000 mg PO Q6H 06/26/25 07/05/25 History (Acetaminophen Extra Strength) carvedilol 12.5 mg tablet 12.5 mg PO Q12H 06/26/25 07/05/25 History insulin aspart U-100 100 unit/mL 1 sliding scale dose subcut TID 06/26/25 07/05/25 History (3 mL) subcutaneous pen (Novolog PRN hyperglycemia FlexPen U-100 Insulin aspart) Held on 07/05/25. Instructions: Order Change isosorbide mononitrate 30 mg 30 mg PO QAM 06/26/25 07/05/25 History tablet,extended release 24 hr metolazone 2.5 mg tablet 2.5 mg PO QAM 06/26/25 07/05/25 History spironolactone 25 mg tablet 25 mg PO QAM 06/26/25 07/05/25 History bumetanide 2 mg tablet 2 mg PO BID 30 days #60 tabs 07/05/25 07/05/25 Rx Allergies Allergy/AdvReac Type Severity Reaction Status Date / Time Penicillins Allergy Severe Anaphylaxis Verified 06/26/25 22:23 adhesive tape Allergy Mild rash Verified 06/26/25 22:23 liraglutide Allergy Unknown Hives / Verified 06/26/25 22:23 Red Face Hrghpdk-JMP-YfI Reductase AdvReac Unknown Muscle Verified 06/26/25 22:23 Inhibitor (Lvdwspw-Yun-Bxs Spasms Reductase Inhibitor) Vital Signs Vital Signs - 24 hr 07/05/25 16:10 07/05/25 18:02 07/05/25 20:13 Temperature Pulse Rate 72 Respiratory Rate Blood Pressure Pulse Oximetry 100 100 Oxygen Delivery Room Air Room Air 07/06/25 00:00 Temperature 98.3 F Pulse Rate 72 Respiratory Rate 16 Blood Pressure 118/53 L Pulse Oximetry 99 Oxygen Delivery Room Air Exam Const: General: comfortable and no acute distress HENMT: Mouth: Yes moist mucous membranes Eyes: General: appearance normal, both eyes and all related structures Sclera: sclerae normal Pupils: Equal, round and reactive pupils present Neck: Neck: supple Resp: Effort & Inspection: normal respiratory effort Auscultation: clear to auscultation bilaterally Cardio: Rate: regular rate Rhythm: regular rhythm GI: GI Palp: Yes Soft to palpation Auscultation: normal bowel sounds Skin: General skin exam: normal color and no rashes or lesions noted Neuro: Speech: normal speech Motor exam (neuro): 5/5 motor strength present throughout Sensory Exam: normal sensation Extrem: General: edema Other: pitting edema to BLE, scrotal edema Psych: Mental Status: mental status grossly normal Affect: normal affect Assessment and Plan Assessment and plan (1) Acute exacerbation of CHF (congestive heart failure): Qualifiers: Heart failure type: diastolic Qualified Code(s): I50.33 - Acute on chronic diastolic (congestive) heart failure Code(s): I50.9 - Heart failure, unspecified Status: Acute Assessment and Plan: s/p IV diuresis patients home furosemide stopped patient started on PO Bumex 2 mg BID continue home metolazone continue home spironolactone low sodium diet monitor daily weights PT/OT, rehab (2) AALIYAH (acute kidney injury): Code(s): N17.9 - Acute kidney failure, unspecified Status: Acute Assessment and Plan: on admission 06/26/25 BUN 99 Cr 2.96 on discharge 04/04/25 BUN 73, Cr 1.35 patient reports known chronic kidney disesase avoid additional nephrotoxins as able follow up with nephrology as outpatient monitor kidney function (3) Urinary retention: Code(s): R33.9 - Retention of urine, unspecified Status: Acute Assessment and Plan: patient status post simmons catheter placement in the hospital with hematuria. Patient was seen by urology. hematuria resolved, simmons catheter was succesfully removed. continue tamsulosin monitor for urinary rentention (4) Hematuria: Qualifiers: Hematuria type: gross Qualified Code(s): R31.0 - Gross hematuria Code(s): R31.9 - Hematuria, unspecified Status: Acute Assessment and Plan: see above (5) Generalized weakness: Code(s): R53.1 - Weakness Status: Acute Assessment and Plan: admitted for rehab PT/OT (6) Anasarca: Code(s): R60.1 - Generalized edema Status: Acute Assessment and Plan: continue diuresis monitor daily weights (7) Acetabular fracture: Code(s): S32.409A - Unspecified fracture of unspecified acetabulum, initial encounter for closed fracture Status: Acute Assessment and Plan: diagnosed 06/01/25 after a fall managed conservatively PT/OT (8) Closed fracture of left inferior pubic ramus: Code(s): S32.592A - Other specified fracture of left pubis, initial encounter for closed fracture Status: Acute Assessment and Plan: diagnosed 06/01/25 after a fall managed conservatively PT/OT (9) Pancytopenia: Code(s): D61.818 - Other pancytopenia Status: Acute Assessment and Plan: chronic per patients chart monitor labs (10) Atrial fibrillation: Qualifiers: Atrial fibrillation type: persistent (not longstanding) Qualified Code(s): I48.19 - Other persistent atrial fibrillation Code(s): I48.91 - Unspecified atrial fibrillation Status: Chronic Assessment and Plan: appears rate controlled continue home carvedilol continue home Eliquis for anticoagulation monitor for signs of bleeding (11) Insulin dependent type 2 diabetes mellitus: Code(s): E11.9 - Type 2 diabetes mellitus without complications; Z79.4 - bus person (current) use of insulin Status: Chronic Assessment and Plan: accu checks avoid hypoglycemia continue insulin glargine 25 units BID continue SSI TID with meals monitor blood sugars and adjust as needed (12) Hypertension: Qualifiers: Hypertension type: primary hypertension Qualified Code(s): I10 - Essential (primary) hypertension Code(s): I10 - Essential (primary) hypertension Status: Acute Assessment and Plan: blood pressure appears stable continue home carvedilol continue home spironolactone continue home lisinopril monitor BP and adjust medications as needed. Quality VTE Prophylaxis VTE prophylaxis: pharmacologic ordered
--- OUTSIDE RECORDS SUMMARY | 2025-07-06 07:31 | XMS_ITS | Encounter Summary ---
Author Organization [facility] Healthcare Address [address] [place] [address] Care Team Providers Care Optometry Doctor Name Role Phone Leonila Chapa MD Primary Care Provider Chinmay Shannon DPM Unavailable [phone] Zach Ojeda Unavailable [phone] Yahaira Westfall MD Unavailable [phone] Encounter Details Date Type Department Care Team (Late st Contact Info) Description 08/31/2023 Orders Only [facility] Health Information Management [address] [place] [id number] Scanning, Provider Social History Tobacco Use Types [...] a drink containing alcohol? Monthly or less 08/25/2023 Q2: How many drinks containi ng alcohol do you have on a typical day when you are drinking? 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 Gender Identity Not on file Sexual Orientation Not on file documented as of this encounter Plan of Treatment Not on file documented as of this encounter Procedures Procedure Name Priority Date/Time Associated Diagnosis Comments SCAN - LABS 08/31/2023 documented in this encounter Results * SCAN - LABS (08/31/2023) us Provider Scanning Final Result documented in this encounter Visit Diagnoses Not on filedocumented in this encounter Additional Health Concerns Infection Onset Date Last Indicated Resolved Time COVID: Suspected 10/14/2023 10/14/2023 10/14/2023 3:53 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
--- OUTSIDE RECORDS SUMMARY | 2025-07-06 07:32 | XMS_ITS | Clinical Summary ---
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
--- OUTSIDE RECORDS SUMMARY | 2025-07-06 07:32 | XMS_ITS ---
Author Organization [facility] [address] Address [address] [place] [address] Care Team Providers Care Last Trimmer Name Role Phone Leonila Chapa MD Primary Care Provider Chinmay Shannon DPM Unavailable [phone] Zach Ojeda Unavailable [phone] Yahaira Westfall MD Unavailable Active Problems Problem Noted Date Diagnosed Date Pancytopenia 10/15/2023 Assessment & Plan (10/15/2023 4:30 PM DISABILITY COUNSELOR): Newly noted, unclear etiology. Patient reports symptoms [...] 10/14/2023 Assessment & Plan (10/15/2023 4:23 PM DISABILITY COUNSELOR): Mechanical as per history. Less likely orthostatic (though has history of 2-3 poor intake and AALIYAH), much less likely neurogenic or cardiogenic. HCT, c-spine CT, XR pelvis & L humerus without fracture and without intracranial bleed -Monitor L orbit hematoma, patient denies visual changes or headache. -PT/OT recommending home with HH AALIYAH (acute kidney injury) 10/14/2023 Assessment & Plan (10/15/2023 4:23 PM DISABILITY COUNSELOR): Likely pre-renal in the setting of 2-3 days of N/V, and then poor intake after fall -Monitor off spironolactone and Lasix, instructed to resume 10/17 with slowly improving AALIYAH Nausea 10/14/2023 Assessment & Plan (10/15/2023 4:24 PM DISABILITY COUNSELOR): Nausea/vomiting x2-3 days. Non bloody non bilious. Unclear etiology but more likely viral gastroenteritis. Resolved and patient tolerating diet. Leg swelling 10/14/2023 Assessment & Plan (10/15/2023 4:26 PM DISABILITY COUNSELOR): Bilateral, L>R, chronic. Intermittent gets worse. He [...] 10/14/2023 Assessment & Plan (10/14/2023 11:06 AM DISABILITY COUNSELOR): Outpatient f/u A-fib 10/14/2023 Assessment & Plan (10/14/2023 11:08 AM DISABILITY COUNSELOR): Chronic, continuing the home Eliquis. Based on PT and risk of repeat falls, may need risks/benefits couselling Follow-up examination 10/14/2023 Assessment & Plan (10/15/2023 4:28 PM DISABILITY COUNSELOR): CT 10/14/23 incidentally noted a Serpiginous tubular [...] 10/14/2023 Assessment & Plan (10/15/2023 4:28 PM DISABILITY COUNSELOR): CABG in 2018. BNP around prior baseline, [...] (08/14/2022): Added automatically from request for surgery [id number] Pre-op evaluation 06/26/2022 Demand ischemia of myocardium [...] 12/29/2017 Assessment & Plan (10/15/2023 4:22 PM DISABILITY COUNSELOR): Uses long acting 25u BID + SSI [...]
--- OUTSIDE RECORDS SUMMARY | 2025-07-06 07:32 | XMS_ITS | Encounter Summary ---
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 Gender Identity Not on file Sexual Orientation [...] COVID: Suspected 10/14/2023 10/14/2023 10/14/2023 3:53 AM BUTCHER APPRENTICE documented as of this encounter Care Teams Shelver Relationship Specialty Start Date End Date Leonila Chapa MD [address] [facility] [address] [place] [address] PCP - General Family Medicine 12/29/17 Chinmay Shannon DPM [address] [place] [address] Referring Physician Foot and Ankle Surg 08/26/22 Zach Ojeda PA [address] [facility] [place] [address] Orthopedic Surgery 12/06/22 Yahaira Westfall MD [address] [facility] [place] [address] Consulting Physician Internal Medicine 05/20/23 documented as of this encounter
--- OUTSIDE RECORDS SUMMARY | 2025-07-06 07:32 | XMS_ITS | Clinical Summary ---
Author Organization [facility] Address [address] [facility] [place] [address] Care Team Providers Care Drafter Mechanical Name Role Phone Leonila Chapa MD Primary Care Provider + Source Comments [facility],non-owned Affiliates and Associated Physician Practices is amultiple site organization consisting of ambulatory clinics and hospital sitesin [place], [place], [place] and [place]. This disclosure is being madepursuant to the Care Everywhere program and may not contain all information available regarding this patient. 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
--- OUTSIDE RECORDS SUMMARY | 2025-07-06 07:32 | XMS_ITS | Clinical Summary ---
Author Organization [facility] Address [address] [place] [address] Care Team Providers Care Drawing Kiln Supervisor Name Role Phone Leonila Chapa MD Primary Care Provider [phone] Social History Tobacco Use Types Packs/Day Years [...] BLUE CROSS BLUE SHIELD MEDICARE Care Teams Drawing Kiln Supervisor Relationship Specialty Start Date End Date Leonila Chapa MD [address] [facility] [address] [place] [address] PCP - General FAMILY PRACTICE 06/22/24
--- OUTSIDE RECORDS SUMMARY | 2025-07-06 07:32 | XMS_ITS | Encounter Summary ---
Author Organization [facility] Healthcare Address [address] [place] [address] Care Team Providers Care Shuttle Buggy Operator Name Role Phone Leonila Chapa MD Primary Care Provider Chinmay ShannonM Unavailable [phone] Zach Ojeda Unavailable [phone] Yahaira Westfall MD Unavailable [phone] Encounter Details Date Type Department Care Team (Late st Contact Info) Description 06/29/2021 Telephone [facility] - Interventional Radiology [address] [place] [address] Cristina Guzman RN Social History Tobacco Use Types Packs/Day Years Used Date Smoking Tobacco: Never Smokeless Tobacco: Never Alcohol Use Standard Drinks/Week Comments Yes 2 (1 standard drink = 0.6 oz pur e alcohol) seldom Sex and Gender Information Value Date Recorded Sex Assigned at Not on file 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 Gender Identity Not on file Sexual Orientation Not on file documented as of this encounter Plan of Treatment Not on file documented as of this encounter Visit Diagnoses Not on filedocumented in this encounter Additional Health Concerns Infection Onset Date Last Indicated Resolved Time COVID: Suspected 03/16/2022 03/16/2022 03/16/2022 5:28 PM CDT COVID: Suspected 10/14/2023 10/14/2023 10/14/2023 3:53 AM PROFESSOR OF APOLOGETICS documented as of this encounter Care Teams Shuttle Buggy Operator Relationship Specialty Start Date End Date Leonila Chapa MD [address] [facility] [address] [place] [address] PCP - General Family Medicine 12/29/17 Chinmay Shannon, SILVA [address] [place] [address] Referring Physician Foot and Ankle Surg 08/26/22 Zach Ojeda PA [address] [facility] [address] [facility] [place] [address] Orthopedic Surgery 12/06/22 Yahaira Westfall MD [address] [facility] [place] [address] Consulting Physician Internal Medicine 05/20/23 documented as of this encounter
--- OUTSIDE RECORDS SUMMARY | 2025-07-06 07:32 | XMS_ITS | Encounter Summary ---
Author Organization [facility] Healthcare Address [address] [place] [address] Care Team Providers Care Assistant Corporation Counsel Name Role Phone Leonila Chapa MD Primary Care Provider Chinmay ShannonM Unavailable [phone] Zach Ojeda Unavailable [phone] Yahaira Westfall MD Unavailable [phone] Encounter Details Date Type Department Care Team (Late st Contact Info) Description 05/21/2021 Telephone [facility] - Interventional Radiology [address] [place] [address] Cristina Guzman RN Social History Tobacco Use Types Packs/Day Years Used Date Smoking Tobacco: Never Smokeless Tobacco: Never Alcohol Use Standard Drinks/Week Comments Yes 2 (1 standard drink = 0.6 oz pur e alcohol) seldom Sex and Gender Information Value Date Recorded Sex Assigned at Not on file Legal 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 Male 7:32 PM CARPENTER SHIP Gender Identity Not on file Sexual Orientation Not on file documented as of this encounter Plan of Treatment Not on file documented as of this encounter Visit Diagnoses Not on filedocumented in this encounter Additional Health Concerns Infection Onset Date Last Indicated Resolved Time COVID: Suspected 03/16/2022 03/16/2022 03/16/2022 5:28 PM CDT COVID: Suspected 10/14/2023 10/14/2023 10/14/2023 3:53 AM CARPENTER SHIP documented as of this encounter Care Teams Assistant Corporation Counsel Relationship Specialty Start Date End Date Leonila Chapa MD [address] [facility] [address] [place] [address] PCP - General Family Medicine 12/29/17 Chinmay Shannon, SILVA [address] [place] [address] Referring Physician Foot and Ankle Surg 08/26/22 Zach Ojeda PA [address] [facility] [address] [facility] [place] [address] Orthopedic Surgery 12/06/22 Yahaira Westfall MD [address] [facility] [place] [place] [address] Consulting Physician Internal Medicine 05/20/23 documented as of this encounter
--- OUTSIDE RECORDS SUMMARY | 2025-07-06 07:32 | XMS_ITS | Encounter Summary ---
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
--- OUTSIDE RECORDS SUMMARY | 2025-07-06 07:32 | XMS_ITS | Clinical Summary ---
Author Organization [facility] [address] [place] [address] Care Team Providers Care Jacket Changer Name Role Phone Leonila Chapa MD Primary Care Provider Chinmay Shannon DPM Unavailable [phone] Zach Ojeda Unavailable Yahaira Westfall MD Unavailable [phone] Allergies Active Allergy Reactions Criticality Noted Date Comments Atorvastatin Other (See comments) Low Reaction: Penicillins Anaphylaxis High 03/19/2013 Lmycxjd-Blq-Xjo Reductase Inhibitors Muscle pain Medium 01/20/2018 Atorvastatin [...] 12 hr tabletIndicatio ns: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 Patient reports symptoms [...] 10/14/2023 Assessment & Plan (10/15/2023 4:23 PM ENERGY DIRECTOR): Mechanical as per history. Less likely orthostatic (though has history of 2-3 poor intake and AALIYAH), much less likely neurogenic or cardiogenic. HCT, c-spine CT, XR pelvis & L humerus without fracture and without intracranial bleed -Monitor L orbit hematoma, patient denies visual changes or headache. -PT/OT recommending home with HH AALIYAH (acute kidney injury) 10/14/2023 Assessment & Plan (10/15/2023 4:23 PM ENERGY DIRECTOR): Likely pre-renal in the setting of 2-3 days of N/V, and then poor intake after fall -Monitor off spironolactone and Lasix, instructed to resume 10/17 with slowly improving AALIYAH Nausea 10/14/2023 Assessment & Plan (10/15/2023 4:24 PM ENERGY DIRECTOR): Nausea/vomiting x2-3 days. Non bloody non bilious. Unclear etiology but more likely viral gastroenteritis. Resolved and patient tolerating diet. Leg swelling 10/14/2023 Assessment & Plan (10/15/2023 4:26 PM ENERGY DIRECTOR): Bilateral, L>R, chronic. Intermittent gets worse. He [...] 10/14/2023 Assessment & Plan (10/14/2023 11:06 AM ENERGY DIRECTOR): Outpatient f/u A-fib 10/14/2023 Assessment & Plan (10/14/2023 11:08 AM ENERGY DIRECTOR): Chronic, continuing the home Eliquis. Based on PT and risk of repeat falls, may need risks/benefits couselling Follow-up examination 10/14/2023 Assessment & Plan (10/15/2023 4:28 PM ENERGY DIRECTOR): CT 10/14/23 incidentally noted a Serpiginous tubular [...] 10/14/2023 Assessment & Plan (10/15/2023 4:28 PM ENERGY DIRECTOR): CABG in 2018. BNP around prior baseline, [...] (08/14/2022): Added automatically from request for surgery [id number] Pre-op evaluation 06/26/2022 Demand ischemia of myocardium [...] 12/29/2017 Assessment & Plan (10/15/2023 4:22 PM ENERGY DIRECTOR): Uses long acting 25u BID + SSI [...] Type Department Care Team Description 06/23/2025 Telephone [facility] Cardiology [address] [place] [address] Mimi Conde NP 06/23/2025 Telephone [place] [address] [place] [phone] Juwan Brown MD 06/13/2025 Orders Only [address] [phone] Yonathan Vences MD 05/24/[address] [phone] Juwan Brown MD 05/23/2025 Results Follow-Up [address] [phone] Mimi Conde NP Basic metabolic panel 05/20/[address] [phone] Juwan Brown MD 05/13/2025 2:00 PM CDT Office Visit [address] [phone] Mimi Conde NP Chronic diastolic heart failure (HCC) (Primary Dx); Edema, lower extremity; Paroxysmal atrial fibrillation (HCC); Chronic anticoagulation; 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 05/10/[address] [phone] Juwan Brown MD 04/13/2025 Orders Only [facility] Health Information Management [address] [place] [address] Scanning, Provider 04/07/[address] [phone] Juwan Brown MD from Last 3 Months [...] on file Legal Sex Male 7:32 PM ENERGY DIRECTOR Gender Identity Not on file Sexual Orientation Not on file Obstetrics History Last Filed Vital Signs Vital Sign Reading Time Taken Comments Blood Pressure 110/64 05/13/2025 2:08 PM CDT Pulse 86 05/13/2025 2:08 PM CDT Temperature 36.2 C (97.2 F) 10/15/2023 3:35 PM ENERGY DIRECTOR Respiratory Rate 18 10/15/2023 8:00 AM ENERGY DIRECTOR Oxygen Saturation 97% 05/13/2025 2:08 PM CDT [...] Screening Discontinued Medical Devices Implanted Type Area Auto Adjudication Specialist Device Identifier Shelf Expiration Date Model / Serial / Lot Daig [employer]ael[employer] [id number] Angio-Seal Vip Bondek-Plus 6fr .035in 70cm Hemostatic Latex Free - [id number] Implanted:Qty: 1 on 01/06/2019 by Sanjiv Starkey MD at [facility] Collagen Right: Groin [employer] 08/05/2019 [id number] / / [id number] [employer] Misael Angio-Seal Vip 6fr Closere Device [id number] - [id number] Implanted:Qty: 1 on 08/07/2022 by Sanjiv Starkey MD at [facility] 03/05/2023 [id number] / / [id number] [employer] Cement Bone Simplex Gentamicin High Viscosity 40gm 6195-1-001 - [id number] Implanted:Qty: 1 on 12/03/2022 by Thuan Servin MD at [facility] Left: Knee [employer] 05/05/2024 [id number] / / [id number] [employer] Attune Cruciate Retain Cementless Knee Left 9 Component Femoral [id number] - [id number] Implanted:Qty: 1 on 12/03/2022 by Thuan Servin MD at [facility] Left: Knee [employer] 06/05/2031 [id number] / / [id number] [employer] Attune 41mm Cemented Medialize Knee Dome Patellar Aox Sterile [id number] - [id number] Implanted:Qty: 1 on 12/03/2022 by Thuan Servin MD at [facility] Left: Knee [employer] 03/05/2027 [id number] / / [id number] [employer] Attune 10mm Cruciate Retaining Fix Bearing Knee 9 Insert Tibial [id number] - [id number] Implanted:Qty: 1 on 12/03/2022 by Thuan Servin MD at [facility] Left: Knee [employer] 08/05/2027 [id number] / / [id number] Attune Tibial Base Affixium Fixed Bearing Size 10 Implanted:Qty: 1 on 12/03/2022 by Thuan Servin MD at [facility] Left: Knee [employer] [id number] 09/04/2032 [id number] / N/A / [id number] Procedures Procedure Name Priority Date/Time Associated Diagnosis Comments CARDIOLOGY DOCUMENT SCAN Routine 06/01/2025 4:41 PM CDT BASIC METABOLIC PANEL Routine 05/21/2025 7:17 AM CDT Chronic diastolic heart failure (HCC) CARDIOLOGY DOCUMENT SCAN 04/13/2025 LIPID PANEL Routine 12/06/2024 1:28 PM ENERGY DIRECTOR HEMOGLOBIN A1C STAT 10/14/2023 2:19 AM ENERGY DIRECTOR COLONOSCOPY 09/24/2023 2:16 PM ENERGY DIRECTOR from Last 3 Months or Most Recently [...] CDT FASTING:NO FASTING: NO us Mimi Conde LASER ENGINEER LAB BLOOD ORDERABLES Martha l Result [facility] [address] [address] [phone] * Cardiology Document Scan (04/13/2025) Anatomical Region Laterality Modality Other Provider Scanning CV CARDIAC SERVICES PROCEDURES Final Result * (ABNORMAL) Lipid panel (12/06/2024 1:28 PM ENERGY DIRECTOR) SCRIBED Cholesterol, Total 107 30 - 199 mg/dL [facility] SCRIBED Triglycerides 75 <=149 mg/dL [facility] SCRIBED HDL 37(A) >=40 mg/dL [facility] SCRIBED LDL 54 <=129 mg/dL [facility] Scribed Non-HDL Cholesterol 70 NONE mg/dL [facility] SCRIBED Total Cholesterol/HDL Ratio 107 NONE [facility] Blood Historical Provider LAB BLOOD ORDERABLES Edit ed Result - Final [facility] * (ABNORMAL) Hemoglobin A1c (10/14/2023 2:19 AM ENERGY DIRECTOR) Hgb A1C 6.4(H) 4.0 - 5.6 % [facility] Estimated Average Glucose 137 mg/dL [facility] Comment: The ADA recommends reporting an estimated Average Glucose (eAG) with all Hemoglobin A1c results using the equation derived from a study of 507 normal and diabetic adults. Minority populations were underrepresented and children were not included. (Diabetes Care 2020; 43(S1): S66-S76). The eAG is not equivalent to a fasting glucose. Blood 10/14/2023 2:19 AM ENERGY DIRECTOR 10/14/2023 2:28 AM ENERGY DIRECTOR Maribell Basilio MD LAB BLOOD ORDERABLES Final Result [facility] Department [place] [address] * COLONOSCOPY (09/24/2023 2:16 PM ENERGY DIRECTOR) Anatomical Region Laterality Modality Other Narrative Procedure Note Alli Ervin MD - 09/24/2023 2:16 PM [facility] Patient Name: Lopez Guzman Procedure Date: 09/24/2023 2:16 PM Date of : 1945 Admit Type: Outpatient Age: 77 Gender: Male Attending MD: Alli Ervin M.D. Room: [facility] ENDOSCOPY ROOM 9 Note [...] scope was passed under direct vision.The CF [id number] endoscope was introduced through the anus and advanced to the cecum, identified by appendiceal orifice and ileocecal valve. The colonoscopy was performed without difficulty. The patient tolerated the procedure well. The qualityof the bowel preparation was evaluated using the BBPS (Offerman Bowel Preparation Scale) with scores of:Right Colon [...] On: 09/24/2023 2:16 PM Recognized by the [place] Society for Gastrointestinal Endoscopy for promoting quality in endoscopy Alli Ervin MD ENDOSCOPY PROCEDURES Final Result from Last 3 Months or Most Recently Relevant to Health Maintenance Insurance [place] MEDICARE [place] [facility] OTHER Address: [address] [place] [address] [facility] MEDICARE MEDICARE MEDICARE [employer] MEDICARE SUPPLEMENT Advance Directives For more information, please contact: [phone] Documents on File Type Date Recorded Patient Core Shaper Top Expl anation Power of Glove Parts Cutter 08/15/2021 7:19 AM * Full Code (Latest [...] Butler Daughter Health Care Agent Care Teams Jacket Changer Relationship Specialty Start Date End Date Leonila Chapa MD [address] [facility] [address] [place] [address] PCP - General Family Medicine 12/29/17 Chinmay Shannon DPM [address] [place] [address] Referring Physician Foot and Ankle Surg 08/26/22 Zach Ojeda PA [address] [facility] [address] [place] [address] Orthopedic Surgery 12/06/22 Yahaira Westfall MD 1 [facility] [place] [address] Consulting Physician Internal Medicine 05/20/23
--- OUTSIDE RECORDS SUMMARY | 2025-07-06 07:32 | XMS_ITS | Encounter Summary ---
Author Organization [facility] Healthcare Address [address] [place] [address] Care Team Providers Care Distribution Center Associate Name Role Phone Leonila Chapa MD Primary Care Provider Chinmay Shannon DPM Unavailable [phone] Zach Ojeda Unavailable [phone] Yahaira Westfall MD Unavailable [phone] Encounter Details Date Type Department Care Team (Late st Contact Info) Description 06/28/2021 Telephone [facility] - Interventional Radiology [address] [place] [address] Cristina Guzman RN Social History Tobacco Use Types Packs/Day Years Used Date Smoking Tobacco: Never Smokeless Tobacco: Never Alcohol Use Standard Drinks/Week Comments Yes 2 (1 standard drink = 0.6 oz pur e alcohol) seldom Sex and Gender Information Value Date Recorded Sex Assigned at Not on file 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 Testing performed by the [facility] Molecular Infectious Disease Laboratory. The 2019-Novel Coronavirus [...] November 09, 2020. Testing performed by: [facility], [address] [place] [address], [id number] First COVID-19 test? Unknown [facility] Comment:Testing performed by : [facility], [address] [place] [address], [address] Employeed in healthcare? No [facility] Comment:Testing performed by : [facility], [address] [place] [address], [id number] status? No [facility] Comment:Testing performed by : [facility], [address] [place] [address], [address] Group care resident? No [facility] Comment:Testing performed by : [facility], [address] [place] [address], [address] Hospitalized? No [facility] Comment:Testing performed by : [facility], [address] [place] [address], [address] Is patient in ICU? No [facility] Comment:Testing performed by : [facility], [address] [place] [address], [address] Symptomatic as defined by CDC? No [facility] Comment:Testing performed by : [address], [address] Nasopharyngeal 06/29/2021 2: 00 PM CDT 06/29/2021 4:51 PM CDT Brianna [facility] - 06/29/2021 9:35 PM CDT What is the reason for testing?->Screening prior to scheduled procedure or surgery (batch) Nestor Whittington MD LAB MICROBIOLOGY - GENERA L ORDERABLES Final Result Performing Organization Address [facility]/ZIP Co de Phone Number [facility] [address] Department [place] [address] * Protime-INR (06/29/2021 12:12 PM CDT) Pathologist [facility] PT 12.4 9.5 - 13.6 sec [facility] INR 1.1 0.9 - 1.2 [facility] Comment: Interpretive data Oral anticoagulant [...] ORDERABLES Martha l Result Performing Organization Address [facility] Co de Phone Number [facility] [address] Department [place] [address] * (ABNORMAL) CBC with auto differential (06/29/2021 12:12 PM CDT) Pathologist [facility] WBC 3.8 3.8 - 9.9 K/cumm [facility] Hgb 10.8(L) 13.0 - 17.5 g/dL [facility] Hct 34.0(L) 38.9 - 50.3 % [facility] Plt 154 150 - 400 K/cumm [facility] MPV 9.2 9.1 - 12.3 fL [facility] RBC 3.47(L) 4.30 - 5.80 M/cumm [facility] MCV 98.0(H) 81.3 - 96.4 fL [facility] MCH 31.1 27.1 - 33.3 pg [facility] MCHC 31.8(L) 32.3 - 35.7 g/dL [facility] RDW CV 14.2 11.1 - 14.9 % [facility] RDW SD 50.5(H) 35.7 - 48.1 fL [facility] NRBC abs 0.00 0.00 - 0.01 K/cumm [facility] Blood 06/29/2021 12:1 2 PM CDT 06/29/2021 12:12 PM CDT us Nestor Whittington MD LAB BLOOD ORDERABLES Martha l Result [facility] [address] Department [place] [address] * (ABNORMAL) Basic metabolic panel (06/29/2021 12:12 PM CDT) Sodium 142 135 - 145 mmol/L [facility] Potassium, pl 4.2 3.3 - 4.9 mmol/L [facility] Chloride 102 97 - 110 mmol/L [facility] CO2 35(H) 22 - 32 mmol/L [facility] Anion gap 5 2 - 15 mmol/L [facility] BUN 18 8 - 25 mg/dL [facility] Creatinine 1.13 0.80 - 1.30 mg/dL [facility] Glucose 145 70 - 199 mg/dL [facility] Comment: Interpretive Data Fasting glucose [...] 2017. Calcium 9.1 8.5 - 10.3 mg/dL [facility] Blood 06/29/2021 12:1 2 PM CDT 06/29/2021 12:12 PM CDT Nestor Whittington MD LAB BLOOD ORDERABLES Martha l Result [facility] [address] Department [place] [address] documented in this encounter Visit Diagnoses Diagnosis Right renal mass- Primary Unspecified disorder of kidney and ureter Right renal mass Unspecified disorder of kidney and ureter documented in this encounter Additional Health Concerns Infection Onset Date Last Indicated Resolved Time COVID: Suspected 03/16/2022 03/16/2022 03/16/2022 5:28 PM CDT COVID: Suspected 10/14/2023 10/14/2023 10/14/2023 3:53 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
--- OUTSIDE RECORDS SUMMARY | 2025-07-06 07:32 | XMS_ITS | Encounter Summary ---
Author Organization [facility] Healthcare Address [address] [place] [address] Care Team Providers Care Vp Global Marketing Solutions Name Role Phone Leonila Chapa MD Primary Care Provider Chinmay Shannon DPM Unavailable [phone] Zach Ojeda Unavailable Yahaira Westfall MD Unavailable [phone] Encounter Details Date Type Department Care Team (Late st Contact Info) Description 05/16/2018 Orders Only [facility] Health Information Management [address] [place] [address] Scanning, Provider Social History Tobacco Use Types Packs/Day Years Used Date Smoking Tobacco: Never Smokeless Tobacco: Never Alcohol Use Standard Drinks/Week Comments Yes 2 (1 standard drink = 0.6 oz pur e alcohol) seldom Sex and Gender Information Value Date Recorded Sex Assigned at Not on file 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 Gender Identity Not on file Sexual Orientation [...] COVID: Suspected 10/14/2023 10/14/2023 10/14/2023 3:53 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 documented as of this encounter Care Teams Vp Global Marketing Solutions Relationship Specialty Start Date End Date Leonila Chapa MD [address] [place] [address] [address] [place] [address] PCP - General Family Medicine 12/29/17 Chinmay Shannon DPM [address] [place] [address] Referring Physician Foot and Ankle Surg 08/26/22 Zach Ojeda PA [address] [facility] [address] [facility] [place] [address] Orthopedic Surgery 12/06/22 Yahaira Westfall MD [address] [facility] [place] [address] Consulting Physician Internal Medicine 05/20/23 documented as of this encounter
--- OUTSIDE RECORDS SUMMARY | 2025-07-06 07:33 | XMS_ITS | Encounter Summary ---
Author Organization [facility] Healthcare Address [address] [place] [address] Care Team Providers Care Forestry Biology Specialist Name Role Phone Leonila Chapa MD Primary Care Provider Chinmay ShannonM Unavailable [phone] Zach Ojeda Unavailable [phone] Yahaira Westfall MD Unavailable [phone] Encounter Details Date Type Department Care Team (Late st Contact Info) Description 05/29/2021 Telephone [facility] - Interventional Radiology [address] [place] [address] Cristina Guzman RN Social History Tobacco Use Types Packs/Day Years Used Date Smoking Tobacco: Never Smokeless Tobacco: Never Alcohol Use Standard Drinks/Week Comments Yes 2 (1 standard drink = 0.6 oz pur e alcohol) seldom Sex and Gender Information Value Date Recorded Sex Assigned at Not on file 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 Gender Identity Not on file Sexual Orientation Not on file documented as of this encounter Plan of Treatment Not on file documented as of this encounter Visit Diagnoses Not on filedocumented in this encounter Additional Health Concerns Infection Onset Date Last Indicated Resolved Time COVID: Suspected 03/16/2022 03/16/2022 03/16/2022 5:28 PM CDT COVID: Suspected 10/14/2023 10/14/2023 10/14/2023 3:53 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 [address] [place] [address] PCP - General Family Medicine 12/29/17 Chinmay Shannon, SILVA [address] [place] [address] Referring Physician Foot and Ankle Surg 08/26/22 Zach Ojeda PA [address] [facility] [address] [facility] [place] [address] Orthopedic Surgery 12/06/22 Yahaira Westfall MD [address] [facility] [place] [address] Consulting Physician Internal Medicine 05/20/23 documented as of this encounter
[2025-07-06] MEDS: APIXABAN 2.5 MG TABLET 5 MG PO ×2 (09:20→20:32)
[2025-07-06] MEDS: BUMETANIDE 1 MG TABLET 2 MG PO ×2 (09:20→17:18)
[2025-07-06] MEDS: ISOSORBIDE MONONITRATE 30 MG TAB.ER.24H PO (09:22)
[2025-07-06] MEDS: SPIRONOLACTONE 25 MG TABLET PO (09:23)
[2025-07-06] MEDS: PANTOPRAZOLE 40 MG TABLET PO (09:23)
[2025-07-06] MEDS: SODIUM CHLORIDE 1 GM TABLET PO ×2 (09:23→17:18)
[2025-07-06] MEDS: RANOLAZINE 500 MG TAB.ER.12H PO ×2 (09:23→20:38)
[2025-07-06] MEDS: INSULIN GLARGINE (*BKC) 1,000 UNITS/10 ML VIAL 25 UNITS SUB-Q ×2 (09:30→20:38)
[2025-07-06] MEDS: INSULIN HUMAN LISPRO (*BKC) 1,000 UNITS/10 ML VIAL SUB-Q (12:08)
[2025-07-06] MEDS: ACETAMINOPHEN 325 MG TABLET 650 MG PO (13:45)
--- NOTE | 2025-07-06 15:55 | PC.NURSE ---
Patient request compression stocking be taken off at this time.
--- NOTE | 2025-07-06 17:02 | PC.NURSE ---
Therapy walked patient in hallway, per therapist pt informs he didn't feel right, she took his BP 95/30 HR60 after she sat him in the chair. After 5 minutes, VS reevaluated BP 105/52, HR 53. Patient informs he is felling better, skin within normal color for him, O2 sats 99% RA.
[2025-07-06] MEDS: TAMSULOSIN HCL 0.4 MG CAPSULE PO (17:18)
[2025-07-06] MEDS: MELATONIN 3 MG TABLET PO (20:32)
[2025-07-06] MEDS: ONDANSETRON HCL ODT 4 MG TABLET PO (20:32)
[2025-07-07] VITALS: BP 107/45; PULSE 55; RESP 16; TEMP 36.2; O2SAT 99
--- NOTE | 2025-07-07 | CONSULT_PTH ---
PATIENT: Lopez Guzman LOC: [facility] U#:[id number] AGE/SX: 79/M ROOM: 208S RE07/05/[address]: Ervin Haas MD : 1945 BED: 1 DIS: 07/08/2025 SPEC #: [id number] RECD: 07/07/25 07:09 STATUS: MAURA RESeferino #: [id number] FELISHA: 07/07/25 00:[address]: Eamon Haas DEPT: [facility] Consult RECD BY: Megan Koo MLT, ([facility]) ENTERED: 07/07/25 07:09 SP TYPE: Consult OTHR DR: Randy Borrero MD Tissues: A - Peripheral Smear Procedures: Hematology Consult
[2025-07-07] MEDS: ACETAMINOPHEN 325 MG TABLET 650 MG PO (04:28)
[2025-07-07 05:39] LABS: Hematocrit 23.1 % (37.0-46.0); Hemoglobin 7.5 g/dL (12.4-15.3); Immature Platelet Fraction Pct 2.3 % (1.0-7.0); Mean Corpuscular HGB Conc 32.5 g/dL (32-36); Mean Corpuscular Hemoglobin 32.1 pg (27.0-31.0); Mean Corpuscular Volume 98.7 fL (78.0-102.0); Platelet Count Result 90 K/mm3 (150-420); Red Blood Count 2.34 M/mm3 (4.70-6.10); White Blood Count 2.5 K/mm3 (4.8-10.8)
[2025-07-07 05:49] LABS: Alanine Aminotransferase 21 U/L (6-50); Albumin Level 2.8 g/dL (3.5-5.1); Alkaline Phosphatase 189 U/L (38-126); Anion Gap 6 mmol/L (4-12); Aspartate Amino Transferase 38 U/L (17-59); Bilirubin,Total 0.9 mg/dL (0.2-1.3); Blood Urea Nitrogen 72 mg/dL (9-20); Calcium 8.9 mg/dL (8.4-10.2); Carbon Dioxide 35 mmol/L (22-30); Chloride 96 mmol/L (98-107); Estimated CRCL calculation 43 ml/min; Estimated Glomerular Filt Rate 38; Glucose 75 mg/dL (65-110); Osmolality Calculated 304 mOsm/kg (285-295); Potassium 4.1 mmol/L (3.4-5.0); Sodium 137 mmol/L (137-145); Total Protein 5.6 g/dL (6.3-8.2)
[2025-07-07 06:19] LABS: Band Neutrophils Percent 0 % (0-6); Eosinophils Absolute Manual 0.05 K/mm3 (0.02-0.50); Eosinophils Percent Manual 2 % (1-6); Lymphocytes Absolute Manual 0.47 K/mm3 (1.1-4.5); Lymphocytes Percent Manual 19 % (18-44); Monocytes Absolute Manual 0.20 K/mm3 (0.1-0.90); Monocytes Percent Manual 8 % (3-9); Neutrophils Absolute Manual 1.77 K/mm3 (1.3-6.7); Neutrophils Percent Manual 71 % (46-73); Total Cells Counted 100
[2025-07-07 08:00] VITALS: BP 107/36; PULSE 53; RESP 18; TEMP 35.8; O2SAT 99
[2025-07-07] MEDS: APIXABAN 2.5 MG TABLET 5 MG PO ×2 (08:45→20:26)
[2025-07-07] MEDS: PANTOPRAZOLE 40 MG TABLET PO (08:45)
[2025-07-07] MEDS: ISOSORBIDE MONONITRATE 30 MG TAB.ER.24H PO (08:45)
[2025-07-07] MEDS: SODIUM CHLORIDE 1 GM TABLET PO ×2 (08:45→17:58)
[2025-07-07] MEDS: SPIRONOLACTONE 25 MG TABLET PO (08:45)
[2025-07-07] MEDS: BUMETANIDE 1 MG TABLET 2 MG PO ×2 (08:45→17:58)
[2025-07-07] MEDS: RANOLAZINE 500 MG TAB.ER.12H PO ×2 (08:46→20:25)
[2025-07-07] MEDS: INSULIN GLARGINE (*BKC) 1,000 UNITS/10 ML VIAL 25 UNITS SUB-Q ×2 (08:46→20:28)
[2025-07-07 08:47] VITALS: PULSE 53
[2025-07-07 10:14] LABS: Add Urine Microscopic? YES; Appearance Urine Cloudy (Clear); Glucose Urine UA Negative (Negative); Leukocyte Esterase Ur 3+ LEU/UL (Negative); Nitrate Urine Positive (Negative); Specific Grav Ur 1.010 (1.010-1.020)
--- NOTE | 2025-07-07 10:30 | PC.NURSE ---
Straight Cath for U/A and culture collected and taken to lab. Patient tolerated well. 80ml of pink tinged urine expelled into specimen cup and 50mls into urinal. Await results.
[2025-07-07] MEDS: CEFDINIR 300 MG CAPSULE PO ×2 (14:06→20:25)
[2025-07-07 16:00] VITALS: BP 110/53; PULSE 62; RESP 20; TEMP 36.1; O2SAT 96
[2025-07-07] MEDS: TAMSULOSIN HCL 0.4 MG CAPSULE PO (18:23)
[2025-07-07 20:25] VITALS: PULSE 62
[2025-07-07] MEDS: MELATONIN 3 MG TABLET PO (20:27)
--- NOTE | 2025-07-07 23:10 | PC.NURSE ---
Pt retaining urine, bladder scan done and pt retaining 577ml of urine, pt then voided about 200ml urine and post bladder scan shows he is still retaining 395 mg of urine. Senior Devops Engineer notified and called INFORMATICS COORDINATOR.
[2025-07-08] VITALS: BP 124/51; PULSE 60; RESP 18; TEMP 36.3; O2SAT 98
[2025-07-08] MEDS: ONDANSETRON HCL ODT 4 MG TABLET PO (01:33)
[2025-07-08] MEDS: ACETAMINOPHEN 325 MG TABLET 650 MG PO ×2 (01:33→11:58)
--- NOTE | 2025-07-08 02:58 | PC.NURSE ---
hematuria and clots persist to urinary catheter, clogging drainage bag. Catheter flushed with 60mL sterile water, with bloody return. Able to drain 750mL from drainage bag at this time.
--- NOTE | 2025-07-08 03:29 | PC.NURSE ---
Pt c/o feeling full in his bladder and discomfort. Bladder scan showing residulat of about 131 ml urine his bladder, clots and hematuria noted in simmons cath.
--- NOTE | 2025-07-08 05:31 | PC.NURSE ---
Pt is on his call leary several times stating he fels his bladder is blocked again. Upon assessment noted blood w/ clots in catheter, catheter manipulated and moved to help urine start to flow again. Noted bright red hematuria in simmons cath.
[2025-07-08 05:32] LABS: Hematocrit 24.7 % (37.0-46.0); Hemoglobin 8.0 g/dL (12.4-15.3); Immature Platelet Fraction Pct 2.2 % (1.0-7.0); Mean Corpuscular HGB Conc 32.4 g/dL (32-36); Mean Corpuscular Hemoglobin 31.9 pg (27.0-31.0); Mean Corpuscular Volume 98.4 fL (78.0-102.0); Platelet Count Result 97 K/mm3 (150-420); Red Blood Count 2.51 M/mm3 (4.70-6.10); White Blood Count 3.0 K/mm3 (4.8-10.8)
[2025-07-08 05:40] LABS: Alanine Aminotransferase 25 U/L (6-50); Albumin Level 3.2 g/dL (3.5-5.1); Alkaline Phosphatase 220 U/L (38-126); Anion Gap 7 mmol/L (4-12); Aspartate Amino Transferase 44 U/L (17-59); Bilirubin,Total 1.2 mg/dL (0.2-1.3); Blood Urea Nitrogen 72 mg/dL (9-20); Calcium 9.0 mg/dL (8.4-10.2); Carbon Dioxide 33 mmol/L (22-30); Chloride 94 mmol/L (98-107); Estimated CRCL calculation 41 ml/min; Estimated Glomerular Filt Rate 35; Glucose 174 mg/dL (65-110); Osmolality Calculated 303 mOsm/kg (285-295); Potassium 4.0 mmol/L (3.4-5.0); Sodium 134 mmol/L (137-145); Total Protein 6.8 g/dL (6.3-8.2)
[2025-07-08 05:51] LABS: Band Neutrophils Percent 1 % (0-6); Basophils Absolute Manual 0.03 K/mm3 (0-0.1); Basophils Percent Manual 1 % (0-1); Eosinophils Absolute Manual 0.09 K/mm3 (0.02-0.50); Eosinophils Percent Manual 3 % (1-6); Lymphocytes Absolute Manual 0.48 K/mm3 (1.1-4.5); Lymphocytes Percent Manual 16 % (18-44); Metamyelocytes Percent 1 %; Monocytes Absolute Manual 0.30 K/mm3 (0.1-0.90); Monocytes Percent Manual 10 % (3-9); Neutrophils Absolute Manual 2.07 K/mm3 (1.3-6.7); Neutrophils Percent Manual 68 % (46-73)
[2025-07-08 08:00] VITALS: BP 132/57; PULSE 57; RESP 18; TEMP 35.8; O2SAT 98
[2025-07-08] MEDS: INSULIN GLARGINE (*BKC) 1,000 UNITS/10 ML VIAL 25 UNITS SUB-Q (08:18)
[2025-07-08] MEDS: CEFDINIR 300 MG CAPSULE PO (08:19)
[2025-07-08 08:20] VITALS: PULSE 57
[2025-07-08] MEDS: PANTOPRAZOLE 40 MG TABLET PO (08:20)
[2025-07-08] MEDS: SPIRONOLACTONE 25 MG TABLET PO (08:20)
[2025-07-08] MEDS: SODIUM CHLORIDE 1 GM TABLET PO ×2 (08:20→16:52)
[2025-07-08] MEDS: BUMETANIDE 1 MG TABLET 2 MG PO ×2 (08:20→16:52)
[2025-07-08] MEDS: ISOSORBIDE MONONITRATE 30 MG TAB.ER.24H PO (08:20)
[2025-07-08] MEDS: RANOLAZINE 500 MG TAB.ER.12H PO (08:20)
[2025-07-08 12:22] LABS: Hematocrit 23.6 % (37.0-46.0); Hemoglobin 7.8 g/dL (12.4-15.3); Immature Platelet Fraction Pct 2.3 % (1.0-7.0); Mean Corpuscular HGB Conc 33.1 g/dL (32-36); Mean Corpuscular Hemoglobin 32.2 pg (27.0-31.0); Mean Corpuscular Volume 97.5 fL (78.0-102.0); Platelet Count Result 95 K/mm3 (150-420); Red Blood Count 2.42 M/mm3 (4.70-6.10); White Blood Count 3.9 K/mm3 (4.8-10.8)
--- NOTE | 2025-07-08 14:18 | PC.NURSE ---
1135 Bedside bladder irrigation. 1800cc sterile water in with 1860 out. Red gross blood with clots expelled from bladder. Patient tolerated well.
--- NOTE | 2025-07-08 14:25 | PC.NURSE ---
1330 CBI started, Urine dark pink draining freely into drainage bag.
[2025-07-08 16:00] VITALS: BP 104/65; PULSE 57; RESP 16; TEMP 36.9; O2SAT 96
[2025-07-08 16:30] LABS: Hematocrit 22.4 % (37.0-46.0); Hemoglobin 7.4 g/dL (12.4-15.3); Immature Platelet Fraction Pct 2.0 % (1.0-7.0); Mean Corpuscular HGB Conc 33.0 g/dL (32-36); Mean Corpuscular Hemoglobin 32.3 pg (27.0-31.0); Mean Corpuscular Volume 97.8 fL (78.0-102.0); Platelet Count Result 93 K/mm3 (150-420); Red Blood Count 2.29 M/mm3 (4.70-6.10); White Blood Count 3.8 K/mm3 (4.8-10.8)
[2025-07-08] MEDS: HYDROcodone/acetaminophen (*CRX) 5-325 MG TABLET 1 TAB PO (16:51)
[2025-07-08] MEDS: TAMSULOSIN HCL 0.4 MG CAPSULE PO (16:53)
[2025-07-08] MEDS: INSULIN HUMAN LISPRO (*BKC) 1,000 UNITS/10 ML VIAL SUB-Q (16:55)
--- NOTE | 2025-07-08 17:00 | PM.IMPN ---
Subjective Date/time seen: 07/08/25 17:00 Objective Data Vital Signs Vital Signs: Vital Signs - 24 hr 07/07/25 20:25 07/08/25 00:00 07/08/25 08:00 Temperature 97.4 F L 96.4 F L Pulse Rate 62 60 57 L Respiratory Rate 18 18 Blood Pressure 124/51 L 132/57 L Pulse Oximetry 98 98 Oxygen Delivery Room Air Room Air 07/08/25 08:20 07/08/25 16:00 Temperature 98.5 F Pulse Rate 57 L 57 L Respiratory Rate 16 Blood Pressure 104/65 Pulse Oximetry 96 Oxygen Delivery Room Air Intake/Output Intake/Output: Intake & Output 07/05/25 07/06/25 07/07/25 07/08/25 23:59 23:59 23:59 23:59 Intake Total 720 1720 1750 6980 Output Total 350 1075 1710 8850 Balance 370 645 40 -1870 Meds/Results Medications: Active Medications Generic Name Dose Route Start Last Admin Trade Name Freq PRN Reason Stop Dose Admin Acetaminophen 650 mg 07/05/25 18:02 07/08/25 11:58 Acetaminophen 325 Mg Tablet PO 650 mg Q6H PRN Administration Mild Pain (1-3) or Fever Hydrocodone Bitart/Acetaminophen 1 tab 07/08/25 16:35 07/08/25 16:51 Hydrocodone/Acetaminophen (*Crx) 5-325 Mg Tablet PO 1 tab Q6H PRN Administration Pain Rated 4-6 Apixaban 5 mg 07/05/25 21:00 07/07/25 20:26 Apixaban 2.5 Mg Tablet PO 5 mg On Hold: 07/08/25 03:32 Q12HR YUNIOR Administration Comment: D/T hematuria Bumetanide 2 mg 07/05/25 18:15 07/08/25 16:52 Bumetanide 1 Mg Tablet PO 2 mg BID YUNIOR Administration Carvedilol 3.125 mg 07/07/25 21:00 07/08/25 08:20 Carvedilol 3.125 Mg Tablet PO 3.125 mg Q12HR YUNIOR Administration Cefdinir 300 mg 07/07/25 14:05 07/08/25 08:19 Cefdinir 300 Mg Capsule PO 300 mg Q12HR YUNIOR Administration Dextrose 12.5 gm 07/05/25 18:02 Dextrose 50% 25 Gm/50 Ml Syringe IV PUSH PRN PRN Hypoglycemia Protocol Glucagon 1 mg 07/05/25 18:02 Glucagon For Inj 1 Mg Vial IM PRN PRN Hypoglycemia Protocol Glucose 15 gm 07/05/25 18:02 Glucose Oral Gel 15 Gm Of Glucse In 37.5 Gm Tube PO PRN PRN Hypoglycemia Protocol Dextrose 1,000 mls @ 100 mls/hr 07/05/25 18:02 Dextrose 5% 1,000 Ml IVPB PRN PRN Hypoglycemia Protocol Insulin Glargine 25 units 07/05/25 21:00 07/08/25 08:18 Insulin Glargine (*Bkc) 1,000 Units/10 Ml Vial SUB-Q 25 units Q12HR YUNIOR Administration Insulin Human Lispro 2 - 5 units 07/06/25 08:00 07/08/25 16:55 Insulin Human Lispro (*Bkc) 1,000 Units/10 Ml Vial SUB-Q 2 units TIDWM YUNIOR Administration Protocol Isosorbide Mononitrate 30 mg 07/06/25 09:00 07/08/25 08:20 Isosorbide Mononitrate 30 Mg Tab.Er.24h PO 30 mg QAM YUNIOR Administration Melatonin 3 mg 07/05/25 21:00 07/07/25 20:27 Melatonin 3 Mg Tablet PO 3 mg HS YUNIOR Administration Metolazone 2.5 mg 07/06/25 09:00 07/08/25 08:19 Metolazone 2.5 Mg Tablet PO 2.5 mg QAM YUNIOR Administration Nitroglycerin 0.4 mg 07/05/25 18:00 Nitroglycerin Sl 0.4 Mg Tablet SUBLINGUAL Q5MIN PRN Angina Ondansetron HCl 4 mg 07/05/25 18:02 07/08/25 01:33 Ondansetron Hcl Odt 4 Mg Tablet PO 4 mg Q6H PRN Administration Nausea And Vomiting Pantoprazole Sodium 40 mg 07/06/25 09:00 07/08/25 08:20 Pantoprazole 40 Mg Tablet PO 40 mg QAM YUNIOR Administration Polyethylene Glycol 17 gm 07/05/25 18:00 Polyethylene Glycol 3350 17 Gm Powd.Pack PO QAM PRN Constipation Polysaccharide Iron Complex 150 mg 07/08/25 06:30 07/08/25 06:25 Polysaccharide Iron Complex 150 Mg Capsule PO 150 mg DAILY@0630 YUNIOR Administration Ranolazine 500 mg 07/05/25 21:00 07/08/25 08:20 Ranolazine 500 Mg Tab.Er.12h PO 500 mg Q12H YUNIOR Administration Sodium Chloride 1 gm 07/05/25 18:20 07/08/25 16:52 Sodium Chloride 1 Gm Tablet PO 1 gm BID YUNIOR Administration Spironolactone 25 mg 07/06/25 09:00 07/08/25 08:20 Spironolactone 25 Mg Tablet PO 25 mg QAM YUNIOR Administration Tamsulosin HCl 0.4 mg 07/05/25 18:00 07/08/25 16:53 Tamsulosin Hcl 0.4 Mg Capsule PO 0.4 mg QPM YUNIOR Administration Radiology Results: ITS Impressions Abdomen/Pelvis CT 07/08/25 11:46 IMPRESSION: 1. Mild bilateral hydronephrosis without evident obstructing urolithiasis. This likely related to bladder outlet obstruction with soft tissue density other mass and/or clot in the bladder surrounding the bulb and distal tip of a Valenzuela catheter. 2. Small bilateral pleural effusions, small amount of perihepatic ascites and extensive body wall and perirectal soft tissue edema which could relate to congestive heart failure and/or cirrhosis. 3. Cardiomegaly. 4. 8.3 x 4.4 x 3.8 cm fluid collection along a subcutaneous surgical scar overlying the right greater trochanter most likely postoperative hematoma/stroma related to recent bipolar type right hip hemiarthroplasty placement although differential would include abscess in the appropriate clinical setting. Labs Labs: Laboratory Results - last 24 hr 07/07/25 07/07/25 07/08/25 16:38 20:24 05:17 WBC 3.0 L RBC 2.51 L Hgb 8.0 L Hct 24.7 L MCV 98.4 MCH 31.9 H MCHC 32.4 RDW 15.0 H Plt Count 97 L MPV 10.6 Immature Gran % (Auto) Not Reportable Neut % (Auto) Not Reportable Lymph % (Auto) Not Reportable [place] % (Auto) Not Reportable Eos % (Auto) Not Reportable Baso % (Auto) Not Reportable Lymph # (Auto) Not Reportable [place] # (Auto) Not Reportable Eos # (Auto) Not Reportable Baso # (Auto) Not Reportable Abs Immat Gran (auto) Not Reportable Absolute Neuts (auto) Not Reportable Absolute Nucleated RBC Not Reportable Neutrophils % (Manual) 68 Band Neutrophils % 1 Lymphocytes % (Manual) 16 L Monocytes % (Manual) 10 H Eosinophils % (Manual) 3 Basophils % (Manual) 1 Metamyelocytes % 1 Nucleated RBC % Not Reportable Abs Neuts (Manual) 2.07 Abs Lymphs (Manual) 0.48 L Abs Monocytes (Manual) 0.30 Absolute Eos (Manual) 0.09 Abs Basophils (Manual) 0.03 Platelet Estimate Slightly decreased % Immature Plt Fraction 2.2 Schistocytes Not Reportable Sodium 134 L Potassium 4.0 Chloride 94 L Carbon Dioxide 33 H Anion Gap 7 BUN 72 H Creatinine 1.86 H Estim Creat Clear Calc 41 Estimated GFR 35 L Glucose 174 H POC Capillary Glucose 150 H 223 H Calculated Osmolality 303 H Calcium 9.0 Total Bilirubin 1.2 AST 44 ALT 25 Alkaline Phosphatase 220 H Total Protein 6.8 Albumin 3.2 L 07/08/25 07/08/25 07/08/25 07:57 11:36 12:15 WBC 3.9 L RBC 2.42 L Hgb 7.8 L Hct 23.6 L MCV 97.5 MCH 32.2 H MCHC 33.1 RDW 15.1 H Plt Count 95 L MPV 9.9 Immature Gran % (Auto) Neut % (Auto) Lymph % (Auto) [place] % (Auto) Eos % (Auto) Baso % (Auto) Lymph # (Auto) [place] # (Auto) Eos # (Auto) Baso # (Auto) Abs Immat Gran (auto) Absolute Neuts (auto) Absolute Nucleated RBC Neutrophils % (Manual) Band Neutrophils % Lymphocytes % (Manual) Monocytes % (Manual) Eosinophils % (Manual) Basophils % (Manual) Metamyelocytes % Nucleated RBC % Abs Neuts (Manual) Abs Lymphs (Manual) Abs Monocytes (Manual) Absolute Eos (Manual) Abs Basophils (Manual) Platelet Estimate % Immature Plt Fraction 2.3 Schistocytes Sodium Potassium Chloride Carbon Dioxide Anion Gap BUN Creatinine Estim Creat Clear Calc Estimated GFR Glucose POC Capillary Glucose 157 H 179 H Calculated Osmolality Calcium Total Bilirubin AST ALT Alkaline Phosphatase Total Protein Albumin 07/08/25 07/08/25 16:23 16:32 WBC 3.8 L RBC 2.29 L Hgb 7.4 L Hct 22.4 L MCV 97.8 MCH 32.3 H MCHC 33.0 RDW 14.9 H Plt Count 93 L MPV 10.2 Immature Gran % (Auto) Neut % (Auto) Lymph % (Auto) [place] % (Auto) Eos % (Auto) Baso % (Auto) Lymph # (Auto) [place] # (Auto) Eos # (Auto) Baso # (Auto) Abs Immat Gran (auto) Absolute Neuts (auto) Absolute Nucleated RBC Neutrophils % (Manual) Band Neutrophils % Lymphocytes % (Manual) Monocytes % (Manual) Eosinophils % (Manual) Basophils % (Manual) Metamyelocytes % Nucleated RBC % Abs Neuts (Manual) Abs Lymphs (Manual) Abs Monocytes (Manual) Absolute Eos (Manual) Abs Basophils (Manual) Platelet Estimate % Immature Plt Fraction 2.0 Schistocytes Sodium Potassium Chloride Carbon Dioxide Anion Gap BUN Creatinine Estim Creat Clear Calc Estimated GFR Glucose POC Capillary Glucose 218 H Calculated Osmolality Calcium Total Bilirubin AST ALT Alkaline Phosphatase Total Protein Albumin
--- NOTE | 2025-07-08 18:20 | PM.DS ---
DS: Admitting Diagnosis Discharge Date 07/08/2025 Admitting Diagnosis acute on chronic diastolic heart failure DS: Discharge Diagnosis Discharge Diagnosis (1) Acute exacerbation of CHF (congestive heart failure): Qualifiers: Heart failure type: diastolic Qualified Code(s): I50.33 - Acute on chronic diastolic (congestive) heart failure Code(s): I50.9 - Heart failure, unspecified Status: Acute Assessment and Plan: s/p IV diuresis patients home furosemide stopped patient started on PO Bumex 2 mg BID continue home metolazone continue home spironolactone low sodium diet monitor daily weights PT/OT, rehab (2) AALIYAH (acute kidney injury): Code(s): N17.9 - Acute kidney failure, unspecified Status: Acute Assessment and Plan: on admission 06/26/25 BUN 99 Cr 2.96 on discharge 04/04/25 BUN 73, Cr 1.35 patient reports known chronic kidney disesase avoid additional nephrotoxins as able follow up with nephrology as outpatient monitor kidney function todays labs BUN 72 Cr 1.86 (3) Urinary retention: Code(s): R33.9 - Retention of urine, unspecified Status: Acute Assessment and Plan: patient status post simmons catheter placement in the hospital with hematuria. Patient was seen by urology. hematuria resolved, simmons catheter was succesfully removed. continue tamsulosin Nursing reported patient was retaining urine last night, order given to place simmons catheter. Patient with large amount of blood clots when catheter was placed and nurse changed it to a larger size and reported it was draining. Orders given for nursing to flush catheter every 4 hours. (4) Hematuria: Qualifiers: Hematuria type: gross Qualified Code(s): R31.0 - Gross hematuria Code(s): R31.9 - Hematuria, unspecified Status: Acute Assessment and Plan: Patient with new gross hematuria starting 10/2 at night (5) Generalized weakness: Code(s): R53.1 - Weakness Status: Acute Assessment and Plan: admitted for rehab PT/OT (6) Anasarca: Code(s): R60.1 - Generalized edema Status: Acute Assessment and Plan: continue diuresis monitor daily weights (7) Acetabular fracture: Code(s): S32.409A - Unspecified fracture of unspecified acetabulum, initial encounter for closed fracture Status: Acute Assessment and Plan: diagnosed 8/27/25 after a fall managed conservatively PT/OT (8) Closed fracture of left inferior pubic ramus: Code(s): S32.592A - Other specified fracture of left pubis, initial encounter for closed fracture Status: Acute Assessment and Plan: diagnosed 06/01/25 after a fall managed conservatively PT/OT (9) Pancytopenia: Code(s): D61.818 - Other pancytopenia Status: Acute Assessment and Plan: chronic per patients chart monitor labs (10) Atrial fibrillation: Qualifiers: Atrial fibrillation type: persistent (not longstanding) Qualified Code(s): I48.19 - Other persistent atrial fibrillation Code(s): I48.91 - Unspecified atrial fibrillation Status: Chronic Assessment and Plan: appears rate controlled continue home carvedilol was on Eliquis for anticoagulation, stopped again on 07/07 due to gross hematuria (11) Insulin dependent type 2 diabetes mellitus: Code(s): E11.9 - Type 2 diabetes mellitus without complications; Z79.4 - assisted (current) use of insulin Status: Chronic Assessment and Plan: accu checks avoid hypoglycemia continue insulin glargine 25 units BID continue SSI TID with meals monitor blood sugars and adjust as needed (12) Hypertension: Qualifiers: Hypertension type: primary hypertension Qualified Code(s): I10 - Essential (primary) hypertension Code(s): I10 - Essential (primary) hypertension Status: Acute Assessment and Plan: blood pressure appears stable continue home carvedilol continue home spironolactone continue home lisinopril monitor BP and adjust medications as needed. DS: Summary Hospital Course Reason for hospitalization: rehab Hospital Course: [facility] a hospitalization at [facility] for CHF exacerbation and AALIYAH on CKD. Patient's hospitalization was complicated by urinary retention and gross hematuria. Patient was seen by Nephrology and Urology. Patients hematuria had resolved and patient had catheter removed and passed voiding trials prior to discharge. Patient was admitted here on 07/05/2025. On 07/07/2025 patient with complaints of dysuria overnight and UA was obtained. UA was positive for nitrates, 3+ leukocyte esterase, and > 75 wbc's. Urine culture is pending. Patient was started on PO Cefdinir 300 mg BID. Overnight last night nursing reported that patient was retaining urine with a bladder scan in the 500s. Orders given to place simmons catheter. Nursing reported patient had a large amount of blood clots and catheter was exchanged for a larger size. Orders given to flush simmons catheter every 6 hours. CBC was done at 0500 and Hgb was stable. Bed requested at [facility] for transfer. No beds available. I reached out to urology at [facility] and spoke with the BREWING TECHNICIAN. CT of abdomen and pelvis obtained. BREWING TECHNICIAN advised to place [address] simmons catheter and flush until no more blood clots can be removed. Patient to then be hooked up to CBI and titrate until fluid is light pink in color. Patients simmons catheter was irrigated until no more clots were obtained. Patient was placed on CBI. Requests were made to [facility] and [facility] to transfer patient to a higher level of care with urology consulted. Patient accepted at [facility] and [facility]. Patient discharging to [facility] with accepting physician Dr. Murdock with urology. Time Spent with Patient Time attestation: Total time spent providing and/or coordinating discharge services: 60 Minutes Exam Const: General: comfortable and no acute distress HENMT: Mouth: Yes moist mucous membranes Eyes: General: appearance normal, both eyes and all related structures Sclera: sclerae normal Pupils: Equal, round and reactive pupils present Neck: Neck: supple Resp: Effort & Inspection: normal respiratory effort Auscultation: clear to auscultation bilaterally Cardio: Rate: regular rate Rhythm: regular rhythm GI: Auscultation: normal bowel sounds Skin: General skin exam: normal color and no rashes or lesions noted Neuro: Cranial nerves: Yes Equal, round and reactive pupils present Speech: normal speech Motor exam (neuro): 5/5 motor strength present throughout Sensory Exam: normal sensation Extrem: General: edema Other: pitting edema to BLE, scrotal edema Psych: Mental Status: mental status grossly normal Affect: normal affect DS: Data Data Completed and Pending Labs on day of discharge: Labs from last 24 hours 07/08/25 07/08/25 07/08/25 16:32 16:23 12:15 WBC 3.8 L 3.9 L RBC 2.29 L 2.42 L Hgb 7.4 L 7.8 L Hct 22.4 L 23.6 L MCV 97.8 97.5 MCH 32.3 H 32.2 H MCHC 33.0 33.1 RDW 14.9 H 15.1 H Plt Count 93 L 95 L MPV 10.2 9.9 Immature Gran % (Auto) Neut % (Auto) Lymph % (Auto) [place] % (Auto) Eos % (Auto) Baso % (Auto) Lymph # (Auto) [place] # (Auto) Eos # (Auto) Baso # (Auto) Abs Immat Gran (auto) Absolute Neuts (auto) Absolute Nucleated RBC Neutrophils % (Manual) Band Neutrophils % Lymphocytes % (Manual) Monocytes % (Manual) Eosinophils % (Manual) Basophils % (Manual) Metamyelocytes % Nucleated RBC % Abs Neuts (Manual) Abs Lymphs (Manual) Abs Monocytes (Manual) Absolute Eos (Manual) Abs Basophils (Manual) Platelet Estimate % Immature Plt Fraction 2.0 2.3 Schistocytes Sodium Potassium Chloride Carbon Dioxide Anion Gap BUN Creatinine Estim Creat Clear Calc Estimated GFR Glucose POC Capillary Glucose 218 H Calculated Osmolality Calcium Total Bilirubin AST ALT Alkaline Phosphatase Total Protein Albumin 07/08/25 07/08/25 07/08/25 11:36 07:57 05:17 WBC 3.0 L RBC 2.51 L Hgb 8.0 L Hct 24.7 L MCV 98.4 MCH 31.9 H MCHC 32.4 RDW 15.0 H Plt Count 97 L MPV 10.6 Immature Gran % (Auto) Not Reportable Neut % (Auto) Not Reportable Lymph % (Auto) Not Reportable [place] % (Auto) Not Reportable Eos % (Auto) Not Reportable Baso % (Auto) Not Reportable Lymph # (Auto) Not Reportable [place] # (Auto) Not Reportable Eos # (Auto) Not Reportable Baso # (Auto) Not Reportable Abs Immat Gran (auto) Not Reportable Absolute Neuts (auto) Not Reportable Absolute Nucleated RBC Not Reportable Neutrophils % (Manual) 68 Band Neutrophils % 1 Lymphocytes % (Manual) 16 L Monocytes % (Manual) 10 H Eosinophils % (Manual) 3 Basophils % (Manual) 1 Metamyelocytes % 1 Nucleated RBC % Not Reportable Abs Neuts (Manual) 2.07 Abs Lymphs (Manual) 0.48 L Abs Monocytes (Manual) 0.30 Absolute Eos (Manual) 0.09 Abs Basophils (Manual) 0.03 Platelet Estimate Slightly decreased % Immature Plt Fraction 2.2 Schistocytes Not Reportable Sodium 134 L Potassium 4.0 Chloride 94 L Carbon Dioxide 33 H Anion Gap 7 BUN 72 H Creatinine 1.86 H Estim Creat Clear Calc 41 Estimated GFR 35 L Glucose 174 H POC Capillary Glucose 179 H 157 H Calculated Osmolality 303 H Calcium 9.0 Total Bilirubin 1.2 AST 44 ALT 25 Alkaline Phosphatase 220 H Total Protein 6.8 Albumin 3.2 L 07/07/25 07/07/25 20:24 16:38 WBC RBC Hgb Hct MCV MCH MCHC RDW Plt Count MPV Immature Gran % (Auto) Neut % (Auto) Lymph % (Auto) [place] % (Auto) Eos % (Auto) Baso % (Auto) Lymph # (Auto) [place] # (Auto) Eos # (Auto) Baso # (Auto) Abs Immat Gran (auto) Absolute Neuts (auto) Absolute Nucleated RBC Neutrophils % (Manual) Band Neutrophils % Lymphocytes % (Manual) Monocytes % (Manual) Eosinophils % (Manual) Basophils % (Manual) Metamyelocytes % Nucleated RBC % Abs Neuts (Manual) Abs Lymphs (Manual) Abs Monocytes (Manual) Absolute Eos (Manual) Abs Basophils (Manual) Platelet Estimate % Immature Plt Fraction Schistocytes Sodium Potassium Chloride Carbon Dioxide Anion Gap BUN Creatinine Estim Creat Clear Calc Estimated GFR Glucose POC Capillary Glucose 223 H 150 H Calculated Osmolality Calcium Total Bilirubin AST ALT Alkaline Phosphatase Total Protein Albumin Discharge Plan Discharge Attending physician on discharge: Eamon Haas Discharging Clinician: Darlene Chandler Patient Disposition: Other Activity: as tolerated Diet: heart healthy Discharge Instructions: Patient transferring to [facility] due to gross hematuria. Continue CBI. Eliquis on hold due to hematuria. Patient Instructions: Antibiotic Form, Apixaban (By mouth), Heart Failure (DC) Patient Language: E[place]re[place] Stand Alone Forms: General Discharge Information Discharge Medications: New ondansetron 4 mg Tablet,Disintegrating 4 mg PO Q6H PRN (Reason: Nausea And Vomiting) Qty: 20 0RF cefdinir 300 mg Capsule 300 mg PO Q12HR Qty: 12 0RF acetaminophen 325 mg Tablet 650 mg PO Q6H PRN (Reason: Mild Pain (1-3) Or Fever) Qty: 30 0RF carvedilol [Coreg] 3.125 mg Tablet 3.125 mg PO Q12HR Qty: 60 0RF Continued Repatha SureClick 140 mg/mL pen injector 140 mg subcut [id number] Rx Instructions: 1ST AND 15TH OF MONTH polyethylene glycol 3350 [Miralax] 17 gram Powder In Packet 17 g PO QAM PRN (Reason: constipation) insulin glargine [Lantus U-100 Insulin] 100 unit/mL Solution 25 unit subcut Q12HR Qty: 10 0RF insulin aspart U-100 [Novolog FlexPen U-100 Insulin] 100 unit/mL (3 mL) insulin pen 1 sliding scale dose SUBCUT TID PRN (Reason: hyperglycemia) Rx Instructions: Pt injects 8-10 units if blood sugar is reading 200-220. isosorbide mononitrate 30 mg tablet extended release 24 hr 30 mg PO QAM metolazone 2.5 mg tablet 2.5 mg PO QAM Rx Instructions: Take at least 90 minutes prior to taking furosemide dose. spironolactone 25 mg tablet 25 mg PO QAM bumetanide 2 mg tablet 2 mg PO BID 30 Days Qty: 60 1RF polysaccharide iron complex [Poly-Iron] 150 mg iron capsule 150 mg PO DAILY Qty: 90 1RF nitroglycerin 0.4 mg tablet, sublingual See Rx Instructions .ROUTE .COMPLEX Qty: 100 0RF Dose Instruction: DISSOLVE 1 TABLET UNDER THE TONGUE EVERY 5 MINUTES NEEDED FOR CHEST PAIN. TO BE TAKEN NO MORE THAN THREE TIMES DAILY Rx Instructions: DISSOLVE 1 TABLET UNDER THE TONGUE EVERY 5 MINUTES NEEDED FOR CHEST PAIN. TO BE TAKEN NO MORE THAN THREE TIMES DAILY (DME) FreeStyle [place] 3 Sensor Device See Rx Instructions .Route Qty: 1 5RF Rx Instructions: As directed tamsulosin 0.4 mg Capsule 0.4 mg PO QPM Qty: 30 0RF sodium chloride 1,000 mg tablet,soluble 1,000 mg PO BID Qty: 60 0RF melatonin 3 mg Tablet 3 mg PO HS Qty: 0 0RF pantoprazole 40 mg tablet,delayed release (DR/EC) 40 mg PO QAM Qty: 30 0RF ranolazine 500 mg tablet extended release 12 hr 500 mg PO Q12H Qty: 60 0RF Discontinued acetaminophen [Acetaminophen Extra Strength] 500 mg tablet 1,000 mg PO Q6H carvedilol 12.5 mg tablet 12.5 mg PO Q12H Eliquis 5 mg Tablet 5 mg PO Q12HR Qty: 60 0RF Date of admission: 07/05/25 15:38 Primary Care Provider: Randy Borrero Admitting Provider: Eamon Haas Attending physician on admission: Eamon Haas Condition: Stable
--- NOTE | 2025-07-08 19:02 | PC.NURSE ---
1630 Gave report to Nan CESPEDES and [facility] in [facility].
--- OUTSIDE RECORDS SUMMARY | 2025-08-18 19:00 | XMS_ITS | Clinical Summary ---
Author Organization Unknown Care Team Providers Care Waste And Batting Waste Chopper Name Role Phone MC SAIDA CAREY Unavailable Devin ADAMS RN, NEELIMA Unavailable Unavailabl e ROMAN MERCHANT MARINER, [place] Unavailable Unavailable MELINA OT, AYAKA Unavailable Unavailable UBALDO PT, MAGI Unavailable Unavailable ALEJO FITTER TACKER, FATUMA Unavailable Unavailabl e LUPCHO CHANGE ANALYST/REIS, MIKE Unavailable Unavaila ble Payers Payer Name Policy Type Policy Number Effective Date Expira tion Date MEDICARE.[email or web address] [id number] Problems Condition Name Condition Details Condition Category Status Onset Date Resolution Date Last Treatment Date Treating Clinician Comments OTH FRACTURE OF LEFT PUBIS, SUBS FOR FX W ROUTN HEAL Active 06-21 00:00: 00 UNSP FRACTURE OF LEFT ACETABULUM, SUBS FOR FX W ROUTN HEAL Active 06-21 00:00: 00 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 KDNY Active 06-21 00:00: 00 ACUTE ON CHRONIC DIASTOLIC (CONGESTIVE) HEART FAILURE Active 06-21 00:00: 00 TYPE 2 DIABETES MELLITUS W DIABETIC CHRONIC KIDNEY DISEASE Active 06-21 00:00: 00 CHRONIC KIDNEY DISEASE, UNSPECIFIED Active 06-21 00:00: 00 ANEMIA IN CHRONIC KIDNEY DISEASE Active 06-21 00:00: 00 UNSPECIFIED ATRIAL FIBRILLATION Active 06-21 00:00: 00 UNSPECIFIED ATRIOVENTRIC ULAR BLOCK Active 06-21 00:00: 00 LEFT BUNDLE-BRANC H BLOCK, UNSPECIFIED Active 06-21 00:00: 00 TYPE 2 DIABETES MELLITUS WITH DIABETIC NEUROPATHY, UNSP Active 06-21 00:00: 00 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 Active 06-21 00:00: 00 PULMONARY HYPERTENSION , UNSPECIFIED Active 06-21 00:00: 00 ATHSCL HEART DISEASE OF [place] CORONARY ARTERY W/O ANG PCTRS Active 06-21 00:00: 00 RHEUMATIC TRICUSPID INSUFFICIENC Y Active 06-21 00:00: 00 OBSTRUCTIVE SLEEP APNEA (ADULT) (PEDIATRIC) Active 06-21 00:00: 00 UNSPECIFIED CIRRHOSIS OF LIVER Active 06-21 00:00: 00 UNILATERAL PRIMARY OSTEOARTHRIT IS, UNSPECIFIED KNEE Active 06-21 00:00: 00 GASTRO-ESOPH AGEAL REFLUX DISEASE WITHOUT ESOPHAGITIS Active 06-21 00:00: 00 UNEQUAL LIMB LENGTH (ACQUIRED), LEFT FEMUR Active 06-21 00:00: 00 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 Active 06-21 00:00: 00 CUSTODIAL (CURRENT) USE OF ANTIBIOTICS Active 06-21 00:00: 00 DROP WIRE HANGER (CURRENT) USE OF INSULIN Active 06-21 00:00: 00 DROP WIRE HANGER (CURRENT) USE OF ANTICOAGULAN TS Active 06-21 00:00: 00 PRESENCE OF RIGHT ARTIFICIAL HIP JOINT Active 06-21 00:00: 00 Allergies, Adverse Reactions, Alerts Allergy Name Allergy Type Status Severity Reaction(s) Onset Date Inactive Date Treating Clinician Comments PCN (PENICILLIN V POTASSIUM) Propensity to adverse reactions Active 06-21 12:50: 46 HMG-COA REDUCTASE INHIBITORS Propensity to adverse reactions Active 06-21 12:50: 58 Medications Ordered Medication Name Filled Medication Name Start Date Stop Date Current Medication? Ordering Clinician Indication Dosage Frequency Signature (SIG) Comments Components Lantus Solostar U-100 Insulin 100 unit/mL (3 mL) subcutaneou s pen 04-25 00:00: 00 05-11 00:00 :00 No [id number] Per instruc tions Per instructio ns (route: subcutaneo us) Med Classific ation: Endocrine Novolog FlexPen U-100 Insulin aspart 100 unit/mL (3 mL) subcutaneou s 04-11 00:00: 00 05-11 00:00 :00 No [id number] Per instruc tions THREE TIMES DAILY PER DAY Per instructio ns THREE TIMES DAILY PER DAY ([facility] Med Classific ation: Endocrine acetaminoph en 325 mg tablet 05-11 00:00: 00 Yes [id number] PAIN 2 tablet EVERY 6 HOURS 2 tablet EVERY 6 HOURS (route: oral) Med Classific ation: Analgesic , Anti-infl ammatory or Antipyret ic Eliquis 5 mg tablet 05-11 00:00: 00 Yes [id number] A-FIB 1 tablet 2 TIMES DAILY 1 tablet 2 TIMES DAILY (route: oral) Med Classific ation: Hematolog ical Agents furosemide 40 mg tablet 05-11 00:00: 00 05-26 23:59 :00 No [id number] EDEMA 1 tablet DAILY 1 tablet DAILY (route: oral) Med Classific ation: Cardiovas cular Therapy Agents insulin aspart (U-100) 100 unit/mL (3 mL) [facility] 05-11 00:00: 00 06-21 00:00 :00 No [id number] DM 20 unit 3 TIMES DAILY 20 unit 3 TIMES DAILY ([facility] Med Classific ation: Endocrine melatonin 3 mg tablet 05-11 00:00: 00 Yes [id number] INSOMNIA 1 tablet BEDTIME 1 tablet BEDTIME (route: oral) Med Classific ation: Central Nervous System Agents Miralax 17 gram/dose oral powder 05-11 00:00: 00 06-21 00:00 :00 No [id number] CONSTIPATIO N 17 gram DAILY 17 gram DAILY (route: oral) Med Classific ation: Gastroint estinal Therapy Agents nitroglycer in 0.4 mg sublingual tablet 05-11 00:00: 00 Yes [id number] CHEST PAIN 1 tablet DIRECTED 1 tablet DIRECTED (route: sublingual ) Med Classific ation: Cardiovas cular Therapy Agents pantoprazol e 40 mg tablet,dale yed release 05-11 00:00: 00 Yes [id number] GERD 1 tablet DAILY 1 tablet DAILY (route: oral) Med Classific ation: Gastroint estinal Therapy Agents Poly-Iron 150 mg iron capsule 05-11 00:00: 00 Yes [id number] SUPPLEMENT 1 capsule DAILY 1 capsule DAILY (route: oral) Med Classific ation: Electroly te Balance-N utritiona l Products ranolazine ER 500 mg tablet,exte nded release,12 hr 05-11 00:00: 00 Yes [id number] ANGINA 1 tablet 2 TIMES DAILY 1 tablet 2 TIMES DAILY (route: oral) Med Classific ation: Cardiovas cular Therapy Agents Repatha SureClick 140 mg/mL subcutane s pen injector 05-11 00:00: 00 06-21 00:00 :00 No [id number] HEART HEALTH 140 mg MONTHLY 140 mg MONTHLY (route: subcutaneo us) Med Classific ation: Cardiovas cular Therapy Agents sennosides 8.6 mg-docusate sodium 50 mg tablet 05-11 00:00: 00 06-21 00:00 :00 No [id number] CONSTIPATIO N 1 tablet 2 TIMES DAILY 1 tablet 2 TIMES DAILY (route: oral) Med Classific ation: Gastroint estinal Therapy Agents sodium chloride 1,000 mg soluble tablet 05-11 00:00: 00 Yes [id number] HYPONATREMI A 1 tablet 2 TIMES DAILY 1 tablet 2 TIMES DAILY (route: miscellane ous) Med Classific ation: Electroly te Balance-N utritiona l Products metolazone 2.5 mg tablet 05-16 00:00: 00 05-19 23:59 :00 No [id number] INCREASED EDEMA 1 tablet DAILY 1 tablet DAILY (route: oral) Med Classific ation: Cardiovas cular Therapy Agents furosemide 40 mg tablet 05-13 00:00: 00 05-17 23:59 :00 No [id number] FLUID OVERLOAD 1 tablet 2 TIMES DAILY 1 tablet 2 TIMES DAILY (route: oral) Alternate Route: BY MOUTH. Med Classific ation: Cardiovas cular Therapy Agents furosemide 40 mg tablet 05-26 00:00: 00 06-21 00:00 :00 No [id number] DIURETIC 1 tablet 2 TIMES DAILY 1 tablet 2 TIMES DAILY (route: oral) Med Classific ation: Cardiovas cular Therapy Agents metolazone 2.5 mg tablet 05-26 00:00: 00 06-21 00:00 :00 No [id number] DIURETIC 1 tablet DAILY 1 tablet DAILY (route: oral) Med Classific ation: Cardiovas cular Therapy Agents trazodone 50 mg tablet 05-26 00:00: 00 06-21 00:00 :00 No [id number] SLEEP AID 1 tablet BEDTIME 1 tablet BEDTIME (route: oral) Med Classific ation: Central Nervous System Agents Vital Signs Vital Name Observation Time Observation Value Commen ts Temperature 2025-06-24 11:53:00.000 97.9 [degF] Temperature 2025-06-24 11:43:00.000 97.9 [degF] Temperature 2025-06-23 14:24:00.000 96.9 [degF] Temperature 2025-06-21 20:12:00.000 97.4 [degF] BMI (%) 2025-06-21 12:52:01.000 38 kg/m2 Height 2025-06-21 12:51:41.000 73 [in_us] Pulse 2025-06-24 11:53:00.000 67 /min Pulse 2025-06-24 11:43:00.000 67 /min Pulse 2025-06-23 14:24:00.000 55 /min Pulse 2025-06-21 20:12:00.000 64 /min O2 Saturation (%) 2025-06-24 11:53:00.000 97 % O2 Saturation (%) 2025-06-24 11:43:00.000 97 % O2 Saturation (%) 2025-06-23 14:24:00.000 98 % O2 Saturation (%) 2025-06-21 20:12:00.000 97 % Respirations 2025-06-24 11:53:00.000 18 /min Respirations 2025-06-24 11:43:00.000 18 /min Respirations 2025-06-23 14:24:00.000 18 /min Respirations 2025-06-21 20:12:00.000 16 /min Weight (lbs) 2025-06-24 11:53:00.000 303 [lb_av] Weight (lbs) 2025-06-21 12:52:01.000 289 [lb_av] Systolic Blood Pressure 2025-06-24 11:53:00.000 118 mm [Hg] Systolic Blood Pressure 2025-06-24 11:43:00.000 118 mm [Hg] Systolic Blood Pressure 2025-06-23 14:24:00.000 98 mm[ Hg] Systolic Blood Pressure 2025-06-21 20:12:00.000 102 mm [Hg] Diastolic Blood Pressure 2025-06-24 11:53:00.000 68 mm [Hg] Diastolic Blood Pressure 2025-06-24 11:43:00.000 68 mm [Hg] Diastolic Blood Pressure 2025-06-23 14:24:00.000 52 mm [Hg] Diastolic Blood Pressure 2025-06-21 20:12:00.000 60 mm [Hg] Plan of Treatment Planned Activity Planned Date Details Comments Future Scheduled Test RN TO OBSE RVE, ASSESS, EVALUATE, AND DEVELOP AN INDIVIDUALIZED PLAN OF CARE. AGENCY MAY ACCEPT ORDERS FROM CONSULTING PHYSICIANS RN TO OBSERVE AND ASSESS, MERCHANT MARINER/EXPLOSIVE OPERATOR TO OBSERVE FOR RISK FOR FALLS AND INSTRUCT IN FALL PREVENTION, HOME SAFETY, MEDICATION MANAGEMENT, INFECTION PREVENTION, AND NUTRITION MANAGEMENT. RN/MERCHANT MARINER/EXPLOSIVE OPERATOR NURSE MAY PERFORM O2 SATURATION LEVEL ON ADMISSION AND PRN FOR 1 VISIT FOR RN TO ASSESS/MERCHANT MARINER TO OBSERVE PATIENT, WITH NOTIFICATION TO THE PHYSICIAN IF SATURATION IS 90% IN THE ABSENCE OF MORE SPECIFIC PARAMETERS FROM THE PHYSICIAN. AGENCY MAY PERFORM A RESUMPTION OF CARE VISIT FOLLOWING ANY HOSPITAL ADMISSION. RN/MERCHANT MARINER/EXPLOSIVE OPERATOR TO MONITOR CO-MORBID CONDITIONS LISTED ON THE PLAN OF CARE AND ANY NEW CONDITIONS THAT PRESENT THEMSELVES DURING THIS EPISODE TO IDENTIFY CHANGES AND INTERVENE TO MINIMIZE COMPLICATIONS. [code = RN TO OBSERVE, ASSESS, EVALUATE, AND DEVELOP AN INDIVIDUALIZED PLAN OF CARE. AGENCY MAY ACCEPT ORDERS FROM CONSULTING PHYSICIANS RN TO OBSERVE AND ASSESS, MERCHANT MARINER/EXPLOSIVE OPERATOR TO OBSERVE FOR RISK FOR FALLS AND INSTRUCT IN FALL PREVENTION, HOME SAFETY, MEDICATION MANAGEMENT, INFECTION PREVENTION, AND NUTRITION MANAGEMENT. RN/MERCHANT MARINER/EXPLOSIVE OPERATOR NURSE MAY PERFORM O2 SATURATION LEVEL ON ADMISSION AND PRN FOR 1 VISIT FOR RN TO ASSESS/MERCHANT MARINER TO OBSERVE PATIENT, WITH NOTIFICATION TO THE PHYSICIAN IF SATURATION IS 90% IN THE ABSENCE OF MORE SPECIFIC PARAMETERS FROM THE PHYSICIAN. AGENCY MAY PERFORM A RESUMPTION OF CARE VISIT FOLLOWING ANY HOSPITAL ADMISSION. RN/MERCHANT MARINER/EXPLOSIVE OPERATOR TO MONITOR CO-MORBID CONDITIONS LISTED ON THE PLAN OF CARE AND ANY NEW CONDITIONS THAT PRESENT THEMSELVES DURING THIS EPISODE TO IDENTIFY CHANGES AND INTERVENE TO MINIMIZE COMPLICATIONS.] Future Scheduled Test MEDICATION MANAGEMENT; RN/MERCHANT MARINER/EXPLOSIVE OPERATOR TO REVIEW MEDICATIONS FOR INTERACTIONS, EFFECTIVENESS OF DRUG THERAPY, AND SIGNS/SYMPTOMS OF ADVERSE REACTIONS. MAY INSTRUCT AND REINFORCE MEDICATION TEACHING RELATED TO THE USE OF MEDICATIONS, DOSAGE, FREQUENCY, PURPOSE, SIDE EFFECTS, AND TO REPORT COMPLICATIONS. [code = MEDICATION MANAGEMENT; RN/MERCHANT MARINER/EXPLOSIVE OPERATOR TO REVIEW MEDICATIONS FOR INTERACTIONS, EFFECTIVENESS OF DRUG THERAPY, AND SIGNS/SYMPTOMS OF ADVERSE REACTIONS. MAY INSTRUCT AND REINFORCE MEDICATION TEACHING RELATED TO THE USE OF MEDICATIONS, DOSAGE, FREQUENCY, PURPOSE, SIDE EFFECTS, AND TO REPORT COMPLICATIONS.] Future Scheduled Test RISK FOR H OSPITALIZATION; RN TO ASSESS/TEACH, EXPLOSIVE OPERATOR/MERCHANT MARINER TO OBSERVE/TEACH PATIENT/CAREGIVER ON RISK FOR HOSPITALIZATION/EMERGENCY ROOM VISITS, TEACH SIGNS AND SYMPTOMS THAT PUT PATIENT AT RISK, WHEN TO NOTIFY NURSE/PHYSICIAN OF COMPLICATIONS/DECLINE, AND WHEN TO CALL 911. [code = RISK FOR HOSPITALIZATION; RN TO ASSESS/TEACH, EXPLOSIVE OPERATOR/MERCHANT MARINER TO OBSERVE/TEACH PATIENT/CAREGIVER ON RISK FOR HOSPITALIZATION/EMERGENCY ROOM VISITS, TEACH SIGNS AND SYMPTOMS THAT PUT PATIENT AT RISK, WHEN TO NOTIFY NURSE/PHYSICIAN OF COMPLICATIONS/DECLINE, AND WHEN TO CALL 911.] Future Scheduled Test CARDIOVASC ULAR SYSTEM; RN TO ASSESS/TEACH, MERCHANT MARINER/EXPLOSIVE OPERATOR TO OBSERVE/TEACH RELATED TO ALTERED CARDIOVASCULAR STATUS TO MINIMIZE COMPLICATIONS AND REDUCE HOSPITALIZATION. [code = CARDIOVASCULAR SYSTEM; RN TO ASSESS/TEACH, MERCHANT MARINER/EXPLOSIVE OPERATOR TO OBSERVE/TEACH RELATED TO ALTERED CARDIOVASCULAR STATUS TO MINIMIZE COMPLICATIONS AND REDUCE HOSPITALIZATION.] Future Scheduled Test HEART FAIL URE; RN TO ASSESS/TEACH, MERCHANT MARINER/EXPLOSIVE OPERATOR TO OBSERVE/TEACH CARDIOPULMONARY SYSTEM TO IDENTIFY SIGNS OF DECOMPENSATION AND INTERVENE TO MINIMIZE THE SEVERITY OF FLUID OVERLOAD. OBSERVE PATIENT ABILITY TO MONITOR AND RECORD DAILY WEIGHTS AND VITAL SIGNS, INCLUDING PULSE AND BLOOD PRESSURE; RECORD PATIENT REPORTED WEIGHT, OR WEIGH PATIENT NEEDED. REPORT INCREASED EDEMA OR WEIGHT GAIN OF >2 LBS IN 1 DAY OR >5 LBS IN 1 WEEK OR 5LBS OR MORE OVER TARGET WEIGHT. MAY MEASURE ABDOMINAL GIRTH IF UNABLE TO WEIGH. SCALES AND BP MONITOR TO BE PROVIDED IF NEEDED. [code = HEART FAILURE; RN TO ASSESS/TEACH, MERCHANT MARINER/EXPLOSIVE OPERATOR TO OBSERVE/TEACH CARDIOPULMONARY SYSTEM TO IDENTIFY SIGNS OF DECOMPENSATION AND INTERVENE TO MINIMIZE THE SEVERITY OF FLUID OVERLOAD. OBSERVE PATIENT ABILITY TO MONITOR AND RECORD DAILY WEIGHTS AND VITAL SIGNS, INCLUDING PULSE AND BLOOD PRESSURE; RECORD PATIENT REPORTED WEIGHT, OR WEIGH PATIENT NEEDED. REPORT INCREASED EDEMA OR WEIGHT GAIN OF >2 LBS IN 1 DAY OR >5 LBS IN 1 WEEK OR 5LBS OR MORE OVER TARGET WEIGHT. MAY MEASURE ABDOMINAL GIRTH IF UNABLE TO WEIGH. SCALES AND BP MONITOR TO BE PROVIDED IF NEEDED.] Future Scheduled Test HYPERTENSI ON MANAGEMENT; RN TO ASSESS AND TEACH, MERCHANT MARINER/EXPLOSIVE OPERATOR TO OBSERVE AND TEACH WARNING SIGNS AND SYMPTOMS TO AVOID HOSPITALIZATION. [code = HYPERTENSION MANAGEMENT; RN TO ASSESS AND TEACH, MERCHANT MARINER/EXPLOSIVE OPERATOR TO OBSERVE AND TEACH WARNING SIGNS AND SYMPTOMS TO AVOID HOSPITALIZATION.] Future Scheduled Test ARRHYTHMIA MANAGEMENT; RN TO ASSESS AND TEACH, MERCHANT MARINER/EXPLOSIVE OPERATOR TO OBSERVE AND TEACH WARNING SIGNS AND SYMPTOMS TO AVOID HOSPITALIZATION. [code = ARRHYTHMIA MANAGEMENT; RN TO ASSESS AND TEACH, MERCHANT MARINER/EXPLOSIVE OPERATOR TO OBSERVE AND TEACH WARNING SIGNS AND SYMPTOMS TO AVOID HOSPITALIZATION.] Future Scheduled Test PAIN MANAG EMENT; RN TO ASSESS AND TEACH, EXPLOSIVE OPERATOR/MERCHANT MARINER TO OBSERVE AND TEACH AND PROVIDE EDUCATION ON PAIN MANAGEMENT TECHNIQUES. [code = PAIN MANAGEMENT; RN TO ASSESS AND TEACH, EXPLOSIVE OPERATOR/MERCHANT MARINER TO OBSERVE AND TEACH AND PROVIDE EDUCATION ON PAIN MANAGEMENT TECHNIQUES.] Future Scheduled Test GENITOURIN DELANEY MANAGEMENT; RN TO ASSESS AND TEACH, MERCHANT MARINER/EXPLOSIVE OPERATOR TO OBSERVE AND TEACH RELATED TO ALTERED GENITOURINARY STATUS TO MINIMIZE COMPLICATIONS AND REDUCE HOSPITALIZATION. [code = GENITOURINARY MANAGEMENT; RN TO ASSESS AND TEACH, MERCHANT MARINER/EXPLOSIVE OPERATOR TO OBSERVE AND TEACH RELATED TO ALTERED GENITOURINARY STATUS TO MINIMIZE COMPLICATIONS AND REDUCE HOSPITALIZATION.] Future Scheduled Test URINARY IN CONTINENCE MANAGEMENT; RN TO ASSESS AND TEACH, MERCHANT MARINER/LVNTO OBSERVE AND TEACH MANAGEMENT OF URINARY INCONTINENCE. TEACH/INSTRUCT ON PREVENTING INFECTION AND SKIN BREAKDOWN. RN/MERCHANT MARINER/EXPLOSIVE OPERATOR MAY INSTRUCT IN BLADDER TRAINING PROGRAM INDICATED. [code = URINARY INCONTINENCE MANAGEMENT; RN TO ASSESS AND TEACH, MERCHANT MARINER/LVNTO OBSERVE AND TEACH MANAGEMENT OF URINARY INCONTINENCE. TEACH/INSTRUCT ON PREVENTING INFECTION AND SKIN BREAKDOWN. RN/MERCHANT MARINER/EXPLOSIVE OPERATOR MAY INSTRUCT IN BLADDER TRAINING PROGRAM INDICATED.] Future Scheduled Test URINARY TR ACT INFECTION MANAGEMENT; RN/EXPLOSIVE OPERATOR/MERCHANT MARINER TO PROVIDE SKILLED TEACHING AND SELF- CARE MANAGEMENT RELATED TO UTI TO MINIMIZE COMPLICATIONS AND REDUCE THE RISK OF HOSPITALIZATION. [code = URINARY TRACT INFECTION MANAGEMENT; RN/EXPLOSIVE OPERATOR/MERCHANT MARINER TO PROVIDE SKILLED TEACHING AND SELF- CARE MANAGEMENT RELATED TO UTI TO MINIMIZE COMPLICATIONS AND REDUCE THE RISK OF HOSPITALIZATION.] Future Scheduled Test FALL REDUC TION MANAGEMENT; RN TO ASSESS AND OBSERVE, MERCHANT MARINER/EXPLOSIVE OPERATOR TO OBSERVE FALL RISK FACTORS AND EDUCATE PATIENT/CAREGIVER ON STRATEGIES TO MINIMIZE THE RISK OF FALLING. [code = FALL REDUCTION MANAGEMENT; RN TO ASSESS AND OBSERVE, MERCHANT MARINER/EXPLOSIVE OPERATOR TO OBSERVE FALL RISK FACTORS AND EDUCATE PATIENT/CAREGIVER ON STRATEGIES TO MINIMIZE THE RISK OF FALLING.] Future Scheduled Test PHYSICAL T HERAPIST TO EVALUATE FOR STRENGTHENING REGAIN FUNCTION EXERCISE PLANS IMPROVING MOBILITY AND BALANCE ... [code = PHYSICAL THERAPIST TO EVALUATE FOR STRENGTHENING REGAIN FUNCTION EXERCISE PLANS IMPROVING MOBILITY AND BALANCE ...] Future Scheduled Test OCCUPATION AL THERAPIST TO EVALUATE FOR RESTORING INDEPENDENCE AND FUNCTION IN DAILY LIFE THROUGH STRATEGIES AND ADAPTIVE EQUIPMENT ... [code = OCCUPATIONAL THERAPIST TO EVALUATE FOR RESTORING INDEPENDENCE AND FUNCTION IN DAILY LIFE THROUGH STRATEGIES AND ADAPTIVE EQUIPMENT ...] Future Scheduled Test PRN VISITS ; NUMBER OF RN/MERCHANT MARINER/EXPLOSIVE OPERATOR VISITS: 1 RN/MERCHANT MARINER/EXPLOSIVE OPERATOR TO PERFORM: 1 VISIT FOR THE FOLLOWING REASONS: WOUND COMPLICATIONS [code = PRN VISITS; NUMBER OF RN/MERCHANT MARINER/EXPLOSIVE OPERATOR VISITS: 1 RN/MERCHANT MARINER/EXPLOSIVE OPERATOR TO PERFORM: 1 VISIT FOR THE FOLLOWING REASONS: WOUND COMPLICATIONS] Future Scheduled Test DIABETES M ANAGEMENT; RN TO ASSESS AND TEACH, EXPLOSIVE OPERATOR/MERCHANT MARINER TO OBSERVE AND TEACH INSTRUCTIONS OF DIABETIC CARE TO INCLUDE: DIET DIABETIC SKIN CARE, SIGNS AND SYMPTOMS OF HYPO/HYPERGLYCEMIA, PROPER ADMINISTRATION OF DIABETIC MEDICATION. RN/EXPLOSIVE OPERATOR/MERCHANT MARINER TO INSTRUCT ON DIABETIC FOOT CARE AND MONITOR FOR SKIN LESIONS ON LOWER EXTREMITIES. BLOOD GLUCOSE TESTING 4X DAILY FREQ. RN TO ASSESS AND TEACH, EXPLOSIVE OPERATOR/MERCHANT MARINER TO OBSERVE AND TEACH PATIENT/CAREGIVER ABILITY TO PERFORM AND RECORD BLOOD GLUCOSE TESTING ORDERED AND TO REPORT ABNORMAL FINDINGS TO PHYSICIAN. RN/EXPLOSIVE OPERATOR/MERCHANT MARINER MAY PERFORM BLOOD GLUCOSE TEST NEEDED. RN/EXPLOSIVE OPERATOR/MERCHANT MARINER TO REPORT TO PHYSICIAN BLOOD GLUCOSE READINGS GREATER THAN 300 OR LESS THAN 70 RN/EXPLOSIVE OPERATOR/MERCHANT MARINER TO INSTRUCT PATIENT ON IMPORTANCE OF HGBA1C MONITORING, KIDNEY FUNCTION TEST, EYE AND FOOT EXAMS. [code = DIABETES MANAGEMENT; RN TO ASSESS AND TEACH, EXPLOSIVE OPERATOR/MERCHANT MARINER TO OBSERVE AND TEACH INSTRUCTIONS OF DIABETIC CARE TO INCLUDE: DIET DIABETIC SKIN CARE, SIGNS AND SYMPTOMS OF HYPO/HYPERGLYCEMIA, PROPER ADMINISTRATION OF DIABETIC MEDICATION. RN/EXPLOSIVE OPERATOR/MERCHANT MARINER TO INSTRUCT ON DIABETIC FOOT CARE AND MONITOR FOR SKIN LESIONS ON LOWER EXTREMITIES. BLOOD GLUCOSE TESTING 4X DAILY FREQ. RN TO ASSESS AND TEACH, EXPLOSIVE OPERATOR/MERCHANT MARINER TO OBSERVE AND TEACH PATIENT/CAREGIVER ABILITY TO PERFORM AND RECORD BLOOD GLUCOSE TESTING ORDERED AND TO REPORT ABNORMAL FINDINGS TO PHYSICIAN. RN/EXPLOSIVE OPERATOR/MERCHANT MARINER MAY PERFORM BLOOD GLUCOSE TEST NEEDED. RN/EXPLOSIVE OPERATOR/MERCHANT MARINER TO REPORT TO PHYSICIAN BLOOD GLUCOSE READINGS GREATER THAN 300 OR LESS THAN 70 RN/EXPLOSIVE OPERATOR/MERCHANT MARINER TO INSTRUCT PATIENT ON IMPORTANCE OF HGBA1C MONITORING, KIDNEY FUNCTION TEST, EYE AND FOOT EXAMS.] Future Scheduled Test RN/MERCHANT MARINER/EXPLOSIVE OPERATOR TO PERFORM/TEACH PATIENT/CAREGIVER WOUND CARE TO COCYX AND BLISTER TO RIGHT HIP IRRIGATE/CLEANSE WOUND CLEANSER APPLY MEDI HONEY MAY APPLY SKIN BARRIER TO PERIWOUND PRN TO PREVENT MACERATION AND PROTECT PERIWOUND COVER WITH 2X2, SECURE WITH FOAM DRSG. CHANGE DRESSING EVERY 3 DAYS AND PRN FOR SOILED OR DISLODGED BLISTER CLEANSE WITH WOUND CLEANSER BARRIER CREAM TO BED 2X2 GAUZE COVER WITH FOAM DRESSING [code = RN/MERCHANT MARINER/EXPLOSIVE OPERATOR TO PERFORM/TEACH PATIENT/CAREGIVER WOUND CARE TO COCYX AND BLISTER TO RIGHT HIP IRRIGATE/CLEANSE WOUND CLEANSER APPLY MEDI HONEY MAY APPLY SKIN BARRIER TO PERIWOUND PRN TO PREVENT MACERATION AND PROTECT PERIWOUND COVER WITH 2X2, SECURE WITH FOAM DRSG. CHANGE DRESSING EVERY 3 DAYS AND PRN FOR SOILED OR DISLODGED BLISTER CLEANSE WITH WOUND CLEANSER BARRIER CREAM TO BED 2X2 GAUZE COVER WITH FOAM DRESSING] Future Scheduled Test HYPOTENSIO N MANAGEMENT; RN TO ASSESS AND TEACH/ MERCHANT MARINER /EXPLOSIVE OPERATOR TO OBSERVE AND TEACH WARNING SIGNS AND SYMPTOMS TO AVOID HOSPITALIZATION. [code = HYPOTENSION MANAGEMENT; RN TO ASSESS AND TEACH/ MERCHANT MARINER /EXPLOSIVE OPERATOR TO OBSERVE AND TEACH WARNING SIGNS AND SYMPTOMS TO AVOID HOSPITALIZATION.] Future Scheduled Test CANCER MAN AGEMENT; RN TO ASSESS AND TEACH, EXPLOSIVE OPERATOR/MERCHANT MARINER TO OBSERVE AND TEACH AND PROVIDE EDUCATION ON CANCER. [code = CANCER MANAGEMENT; RN TO ASSESS AND TEACH, EXPLOSIVE OPERATOR/MERCHANT MARINER TO OBSERVE AND TEACH AND PROVIDE EDUCATION ON CANCER.] Future Scheduled Test AGENCY MAY PERFORM A RESUMPTION OF CARE VISIT FOLLOWING ANY HOSPITAL ADMISSION. PT TO EVALUATE, OBSERVE / ASSESS, AND MONITOR, FITTER TACKER TO OBSERVE AND MONITOR, PROVIDE SKILLED THERAPEUTIC INTERVENTION, ACTIVITY, EDUCATION, AND TRAINING TO ADDRESS; PT/FITTER TACKER TO PROVIDE GAIT TRAINING FOR IMPROVED MOBILITY AND /OR TO NORMALIZE GAIT PATTERN NEUROMUSCULAR RE-EDUCATION / BALANCE / POSTURAL CONTROL (PT) THERAPEUTIC EXERCISES AND ESTABLISHING A HOME EXERCISE PROGRAM (PT/FITTER TACKER) SIT TO/FROM STAND TRANSFERS (PT/FITTER TACKER) PT / FITTER TACKER TO MONITOR FOR HYPO/HYPERGLYCEMIA AND CONDUCT ROUTINE FOOT INSPECTIONS. RECORD PATIENT REPORTED BLOOD SUGAR LEVELS AND NOTIFY PHYSICIAN AND/OR THE RN CLINICAL HUB CUTTER FOR PHYSICIAN NOTIFICATION IF BLOOD SUGAR LEVELS ARE OUTSIDE ORDERED PARAMETERS. TEACH PATIENT/CAREGIVER ON DAILY FOOT INSPECTIONS PT TO ASSESS / FITTER TACKER TO MONITOR FOR HEART FAILURE EXACERBATION AND RECORD PATIENT REPORTED WEIGHT, AND NOTIFY THE PHYSICIAN AND/OR THE RN CLINICAL HUB CUTTER FOR PHYSICIAN NOTIFICATION OF HF EXACERBATION (2LB WEIGHT GAIN IN 1 DAY, 5LBS IN A WEEK OR 5 LBS OVER BASELINE; INCREASED SOB, EDEMA, NEEDING MORE PILLOWS AT NIGHT, CRACKLES IN BASIS OF THE LUNGS OR PMI SHIFT) PT TO ASSESS / FITTER TACKER TO MONITOR CARDIO/RESPIRATORY SYSTEM; AND NOTIFY THE PHYSICIAN AND/OR THE RN CLINICAL HUB CUTTER FOR PHYSICIAN NOTIFICATION FOR EARLY SIGNS AND SYMPTOMS OF EXACERBATION OR DETERIORATION. PT/FITTER TACKER TO IDENTIFY FALL RISK FACTORS; EDUCATE THE PATIENT/CAREGIVER ON WAYS TO REDUCE FALL RISK FACTORS AND ESTABLISH HOME EXERCISE PROGRAM TO MINIMIZE FALL RISK. MAY TEACH THE PATIENT FLOOR RECOVERY WHEN CLINICALLY APPROPRIATE [code = AGENCY MAY PERFORM A RESUMPTION OF CARE VISIT FOLLOWING ANY HOSPITAL ADMISSION. PT TO EVALUATE, OBSERVE / ASSESS, AND MONITOR, FITTER TACKER TO OBSERVE AND MONITOR, PROVIDE SKILLED THERAPEUTIC INTERVENTION, ACTIVITY, EDUCATION, AND TRAINING TO ADDRESS; PT/FITTER TACKER TO PROVIDE GAIT TRAINING FOR IMPROVED MOBILITY AND /OR TO NORMALIZE GAIT PATTERN NEUROMUSCULAR RE-EDUCATION / BALANCE / POSTURAL CONTROL (PT) THERAPEUTIC EXERCISES AND ESTABLISHING A HOME EXERCISE PROGRAM (PT/FITTER TACKER) SIT TO/FROM STAND TRANSFERS (PT/FITTER TACKER) PT / FITTER TACKER TO MONITOR FOR HYPO/HYPERGLYCEMIA AND CONDUCT ROUTINE FOOT INSPECTIONS. RECORD PATIENT REPORTED BLOOD SUGAR LEVELS AND NOTIFY PHYSICIAN AND/OR THE RN CLINICAL HUB CUTTER FOR PHYSICIAN NOTIFICATION IF BLOOD SUGAR LEVELS ARE OUTSIDE ORDERED PARAMETERS. TEACH PATIENT/CAREGIVER ON DAILY FOOT INSPECTIONS PT TO ASSESS / FITTER TACKER TO MONITOR FOR HEART FAILURE EXACERBATION AND RECORD PATIENT REPORTED WEIGHT, AND NOTIFY THE PHYSICIAN AND/OR THE RN CLINICAL HUB CUTTER FOR PHYSICIAN NOTIFICATION OF HF EXACERBATION (2LB WEIGHT GAIN IN 1 DAY, 5LBS IN A WEEK OR 5 LBS OVER BASELINE; INCREASED SOB, EDEMA, NEEDING MORE PILLOWS AT NIGHT, CRACKLES IN BASIS OF THE LUNGS OR PMI SHIFT) PT TO ASSESS / FITTER TACKER TO MONITOR CARDIO/RESPIRATORY SYSTEM; AND NOTIFY THE PHYSICIAN AND/OR THE RN CLINICAL HUB CUTTER FOR PHYSICIAN NOTIFICATION FOR EARLY SIGNS AND SYMPTOMS OF EXACERBATION OR DETERIORATION. PT/FITTER TACKER TO IDENTIFY FALL RISK FACTORS; EDUCATE THE PATIENT/CAREGIVER ON WAYS TO REDUCE FALL RISK FACTORS AND ESTABLISH HOME EXERCISE PROGRAM TO MINIMIZE FALL RISK. MAY TEACH THE PATIENT FLOOR RECOVERY WHEN CLINICALLY APPROPRIATE] Goal Patient Goal - LIVE BY [employer] Goal Provider Goal - A PLAN OF CARE WILL BE ESTABLISHED THAT MEETS THE PATIENT S NEEDS. PATIENT WILL DEMONSTRATE OXYGEN SATURATION WITHIN NORMAL LIMITS OR PATIENT S OPTIMAL LEVEL ESTABLISHED BY THE PHYSICIAN THROUGHOUT [...] TAKE MEDICATIONS PRESCRIBED WITHOUT ADVERSE EFFECTS BY EOE Goal Provider Goal - PATIENT/CAREGIVER WILL VERBALIZE UNDERSTANDING OF SIGNS AND SYMPTOMS THAT PUT THE PATIENT AT RISK FOR HOSPITALIZATION /EMERGENCY ROOM VISITS, WHEN TO NOTIFY NURSE/PHYSICIAN OF COMPLICATIONS/DECLINE AND WHEN TO CALL 911. Goal Provider Goal - PATIENT / CAREGIVER WILL VERBALIZE/DEMONSTRATE UNDERSTANDING OF MEASURES TO MANAGE ALTERED CARDIOVASCULAR STATUS BY EOE. Goal Provider Goal - PATIENT / CAREGIVER WILL VERBALIZE/DEMONSTRATE AN ABILITY TO ADHERE TO SELF-MANAGEMENT OF HF TO MINIMIZE COMPLICATIONS AND AVOID HOSPITALIZATION BY [...] DEMONSTRATE UNDERSTANDING OF PAIN CONTROL MEASURES BY EOE Goal Provider Goal - PATIENT / CAREGIVER WILL VERBALIZE/DEMONSTRATE UNDERSTANDING OF MEASURES TO MANAGE ALTERED GENITOURINARY STATUS BY END OF EPISODE. Goal Provider Goal - PATIENT/CAREGIVER WILL VERBALIZE/DEMONSTRATE UNDERSTANDING OF CARE AND MANAGEMENT OF URINARY INCONTINENCE BY EOE. Goal Provider Goal - PATIENT/CAREGIVER WILL VERBALIZE/DEMONSTRATE UNDERSTANDING OF CARE AND MANAGEMENT OF URINARY TRACT INFECTION BY EOE. Goal Provider Goal - PATIENT/CAREGIVER WILL VERBALIZE/DEMONSTRATE UNDERSTANDING OF FALL RISK FACTORS AND IMPLEMENT STRATEGIES TO MINIMIZE FALL RISK. PATIENT/CAREGIVER WILL VERBALIZE/DEMONSTRATE AN ABILITY TO ADHERE TO FALL REDUCTION SELF-MANAGEMENT AND LIFE-STYLE CHANGES BY EOE Goal Provider Goal - Goal Provider Goal - Goal Provider Goal - Goal Provider Goal - PATIENT / CAREGIVER WILL VERBALIZE / DEMONSTRATE AN ABILITY TO ADHERE TO SELF-MANAGEMENT OF DIABETES MANAGEMENT BY EOE Goal Provider Goal - PATIENT / CAREGIVER WILL VERBALIZE/DEMONSTRATE ABILITY TO PERFORM WOUND CARE. WOUND STATUS WILL IMPROVE EVIDENCED BY A DECREASE IN SIZE, DRAINAGE, ABSENCE OF INFECTION, AND DECREASED PAIN BY Goal Provider Goal - PATIENT/CAREGIVER WILL VERBALIZE/DEMONSTRATE ABILITY TO ADHERE TO SELF-MANAGEMENT OF HYPOTENSION TO MINIMIZE COMPLICATIONS AND AVOID HOSPITALIZATION BY THE END OF EPISODE. Goal Provider Goal - PATIENT / CAREGIVER WILL VERBALIZE/DEMONSTRATE UNDERSTANDING OF MEASURES TO MINIMIZE COMPLICATIONS AND REDUCE HOSPITALIZATION RELATED TO CANCER BY END OF EPISODE. Goal Provider Goal - PT LTG: PATIENT WILL DEMONSTRATE IMPROVED SAFE FUNCTIONAL MOBILITY BY IMPROVED AMBULATION FROM CONTACT GUARD ASSIST WITH FRONT WHEELED WALKER FOR 60 FEET TO INDEPENDENT WITH FRONT WHEELED WALKER 150 FEET IN ORDER TO RETURN TO COMMUNITY LEVEL ACTIVITIES IN 5 WEEKS ... PT LTG: PATIENT WILL DEMONSTRATE REDUCED FALL RISK EVIDENCED BY IMPROVED TINETTI SCORE FROM 14/28TO 18/28 IN 5 WEEKS ... PT LTG: PATIENT WILL DEMONSTRATE INCREASED STRENGTH OF BILATERAL LOWER EXTREMITIES FROM 4/5 TO 5/5 IN 5 WEEKS PT STG: PATIENT WILL DEMONSTRATE IMPROVED ABILITY TO PERFORM SIT TO/FROM STAND TRANSFERS TO REDUCE THE RISK OF SKIN BREAKDOWN AND REDUCE FALL RISK FROM CONTACT GUARD ASSIST WITH MULTIPLE ATTEMPTS TO INDEPENDENT AND SINGLE ATTEMPT IN 3 WEEKS ... PATIENT S BLOOD SUGAR WILL REMAIN WELL CONTROLLED WITH SELF-MANAGEMENT THROUGHOUT EPISODE OF CARE. PT GOAL: PATIENT S HEART FAILURE WILL REMAIN WELL CONTROLLED THROUGHOUT EPISODE OF CARE. PT LTG: PATIENT WILL NOT EXPERIENCE CARDIAC OR RESPIRATORY COMPLICATIONS THROUGHOUT THE EPISODE OF CARE. PT LTG: PATIENT/CAREGIVER WILL DEMONSTRATE ADHERENCE TO FALL REDUCTION SELF-MANAGEMENT AND REDUCING FALL RISK FACTORS TO MINIMIZE FALL RISK BY END OF EPISODE PT LTG: PATIENT WILL BE INDEPENDENT WITH IMPLEMENTATION OF HEP WITHIN 3 WEEKS Encounters Start Date/Time End Date/Time Encounter Type Admission Type Attending [facility] Facility Care Department Encounter ID Discharge Date Discharge Status Discharge Condition Discharge Reason Percent Goals Met 2025-06-21 00:00:00 2025-08-19 00:00:00 Outpatient NEELIMA MONDRAGON [facility] [id number]
--- OUTSIDE RECORDS SUMMARY | 2025-08-18 19:00 | XMS_ITS | Clinical Summary ---
Author Organization Unknown Care Team Providers Care Admitting Supervisor Name Role Phone MC SAIDA CAREY Unavailable Devin ADAMS RN, NEELIMA Unavailable Unavailabl e ROMAN INFECTION PREVENTION COORDINATOR, [place] Unavailable Unavailable MELINA OT, AYAKA Unavailable Unavailable UBALDO PT, MAGI Unavailable Unavailable ALEJO EXPRESSIVE ART THERAPIST, FATUMA Unavailable Unavailabl e LUPCHO LACQUER SIZER/REIS, MIKE Unavailable Unavaila ble Payers Payer Name Policy Type Policy Number Effective Date Expira tion Date MEDICARE.[place] [id number] Problems Condition Name Condition Details Condition Category [...] 06-21 00:00: 00 ATHSCL HEART DISEASE OF [place] CORONARY ARTERY W/O ANG PCTRS Active 06-21 [...] TO EXCESS CALORIES Active 06-21 00:00: 00 LONGTERM (CURRENT) USE OF ANTIBIOTICS Active 06-21 00:00: 00 SOUND PRINTER (CURRENT) USE OF INSULIN Active 06-21 00:00: 00 SOUND PRINTER (CURRENT) USE OF ANTICOAGULAN TS Active 06-21 [...] 04-25 00:00: 00 05-11 00:00 :00 No [id number] Per instruc tions Per instructio ns (route: subcutaneo us) Med Classific ation: Endocrine Novolog FlexPen U-100 Insulin aspart 100 unit/mL (3 mL) subcutaneou s 04-11 00:00: 00 05-11 00:00 :00 No [id number] Per instruc tions THREE TIMES DAILY PER DAY Per instructio ns THREE TIMES DAILY PER DAY ([facility] Med Classific ation: Endocrine acetaminoph en 325 mg tablet 05-11 00:00: 00 Yes [id number] PAIN 2 tablet EVERY 6 HOURS 2 tablet EVERY 6 HOURS (route: oral) Med Classific ation: Analgesic , Anti-infl ammatory or Antipyret ic Eliquis 5 mg tablet 05-11 00:00: 00 Yes [id number] A-FIB 1 tablet 2 TIMES DAILY 1 tablet 2 TIMES DAILY (route: oral) Med Classific ation: Hematolog ical Agents furosemide 40 mg tablet 05-11 00:00: 00 05-26 23:59 :00 No [id number] EDEMA 1 tablet DAILY 1 tablet DAILY (route: oral) Med Classific ation: Cardiovas cular Therapy Agents insulin aspart (U-100) 100 unit/mL (3 mL) [facility] 05-11 00:00: 00 06-21 00:00 :00 No [id number] DM 20 unit 3 TIMES DAILY 20 unit 3 TIMES DAILY ([facility] Med Classific ation: Endocrine melatonin 3 mg tablet 05-11 00:00: 00 Yes [id number] INSOMNIA 1 tablet BEDTIME 1 tablet BEDTIME (route: oral) Med Classific ation: Central Nervous System Agents Miralax 17 gram/dose oral powder 05-11 00:00: 00 06-21 00:00 :00 No [id number] CONSTIPATIO N 17 gram DAILY 17 gram DAILY (route: oral) Med Classific ation: Gastroint estinal Therapy Agents nitroglycer in 0.4 mg sublingual tablet 05-11 00:00: 00 Yes [id number] CHEST PAIN 1 tablet DIRECTED 1 tablet DIRECTED (route: sublingual ) Med Classific ation: Cardiovas cular Therapy Agents pantoprazol e 40 mg tablet,dale yed release 05-11 00:00: 00 Yes [id number] GERD 1 tablet DAILY 1 tablet DAILY (route: oral) Med Classific ation: Gastroint estinal Therapy Agents Poly-Iron 150 mg iron capsule 05-11 00:00: 00 Yes [id number] SUPPLEMENT 1 capsule DAILY 1 capsule DAILY (route: oral) Med Classific ation: Electroly te Balance-N utritiona l Products ranolazine ER 500 mg tablet,exte nded release,12 hr 05-11 00:00: 00 Yes [id number] ANGINA 1 tablet 2 TIMES DAILY 1 tablet 2 TIMES DAILY (route: oral) Med Classific ation: Cardiovas cular Therapy Agents Repatha SureClick 140 mg/mL subcutane s pen injector 05-11 00:00: 00 06-21 00:00 :00 No [id number] HEART HEALTH 140 mg MONTHLY 140 mg MONTHLY (route: subcutaneo us) Med Classific ation: Cardiovas cular Therapy Agents sennosides 8.6 mg-docusate sodium 50 mg tablet 05-11 00:00: 00 06-21 00:00 :00 No [id number] CONSTIPATIO N 1 tablet 2 TIMES DAILY 1 tablet 2 TIMES DAILY (route: oral) Med Classific ation: Gastroint estinal Therapy Agents sodium chloride 1,000 mg soluble tablet 05-11 00:00: 00 Yes [id number] HYPONATREMI A 1 tablet 2 TIMES DAILY 1 tablet 2 TIMES DAILY (route: miscellane ous) Med Classific ation: Electroly te Balance-N utritiona l Products metolazone 2.5 mg tablet 05-16 00:00: 00 05-19 23:59 :00 No [id number] INCREASED EDEMA 1 tablet DAILY 1 tablet DAILY (route: oral) Med Classific ation: Cardiovas cular Therapy Agents furosemide 40 mg tablet 05-13 00:00: 00 05-17 23:59 :00 No [id number] FLUID OVERLOAD 1 tablet 2 TIMES DAILY 1 tablet 2 TIMES DAILY (route: oral) Alternate Route: BY MOUTH. Med Classific ation: Cardiovas cular Therapy Agents furosemide 40 mg tablet 05-26 00:00: 00 06-21 00:00 :00 No [id number] DIURETIC 1 tablet 2 TIMES DAILY 1 tablet 2 TIMES DAILY (route: oral) Med Classific ation: Cardiovas cular Therapy Agents metolazone 2.5 mg tablet 05-26 00:00: 00 06-21 00:00 :00 No [id number] DIURETIC 1 tablet DAILY 1 tablet DAILY (route: oral) Med Classific ation: Cardiovas cular Therapy Agents trazodone 50 mg tablet 05-26 00:00: 00 06-21 00:00 :00 No [id number] SLEEP AID 1 tablet BEDTIME 1 tablet [...] CONSULTING PHYSICIANS RN TO OBSERVE AND ASSESS, INFECTION PREVENTION COORDINATOR/RETAIL MERCHANDISING SPECIALIST TO OBSERVE FOR RISK FOR FALLS AND INSTRUCT IN FALL PREVENTION, HOME SAFETY, MEDICATION MANAGEMENT, INFECTION PREVENTION, AND NUTRITION MANAGEMENT. RN/INFECTION PREVENTION COORDINATOR/RETAIL MERCHANDISING SPECIALIST NURSE MAY PERFORM O2 SATURATION LEVEL ON ADMISSION AND PRN FOR 1 VISIT FOR RN TO ASSESS/INFECTION PREVENTION COORDINATOR TO OBSERVE PATIENT, WITH NOTIFICATION TO THE PHYSICIAN IF SATURATION IS 90% IN THE ABSENCE OF MORE SPECIFIC PARAMETERS FROM THE PHYSICIAN. AGENCY MAY PERFORM A RESUMPTION OF CARE VISIT FOLLOWING ANY HOSPITAL ADMISSION. RN/INFECTION PREVENTION COORDINATOR/RETAIL MERCHANDISING SPECIALIST TO MONITOR CO-MORBID CONDITIONS LISTED ON THE PLAN OF CARE AND ANY NEW CONDITIONS THAT PRESENT THEMSELVES DURING THIS EPISODE TO IDENTIFY CHANGES AND INTERVENE TO MINIMIZE COMPLICATIONS. [code = RN TO OBSERVE, ASSESS, EVALUATE, AND DEVELOP AN INDIVIDUALIZED PLAN OF CARE. AGENCY MAY ACCEPT ORDERS FROM CONSULTING PHYSICIANS RN TO OBSERVE AND ASSESS, INFECTION PREVENTION COORDINATOR/RETAIL MERCHANDISING SPECIALIST TO OBSERVE FOR RISK FOR FALLS AND INSTRUCT IN FALL PREVENTION, HOME SAFETY, MEDICATION MANAGEMENT, INFECTION PREVENTION, AND NUTRITION MANAGEMENT. RN/INFECTION PREVENTION COORDINATOR/RETAIL MERCHANDISING SPECIALIST NURSE MAY PERFORM O2 SATURATION LEVEL ON ADMISSION AND PRN FOR 1 VISIT FOR RN TO ASSESS/INFECTION PREVENTION COORDINATOR TO OBSERVE PATIENT, WITH NOTIFICATION TO THE PHYSICIAN IF SATURATION IS 90% IN THE ABSENCE OF MORE SPECIFIC PARAMETERS FROM THE PHYSICIAN. AGENCY MAY PERFORM A RESUMPTION OF CARE VISIT FOLLOWING ANY HOSPITAL ADMISSION. RN/INFECTION PREVENTION COORDINATOR/RETAIL MERCHANDISING SPECIALIST TO MONITOR CO-MORBID CONDITIONS LISTED ON THE PLAN OF CARE AND ANY NEW CONDITIONS THAT PRESENT THEMSELVES DURING THIS EPISODE TO IDENTIFY CHANGES AND INTERVENE TO MINIMIZE COMPLICATIONS.] Future Scheduled Test MEDICATION MANAGEMENT; RN/INFECTION PREVENTION COORDINATOR/RETAIL MERCHANDISING SPECIALIST TO REVIEW MEDICATIONS FOR INTERACTIONS, EFFECTIVENESS OF DRUG THERAPY, AND SIGNS/SYMPTOMS OF ADVERSE REACTIONS. MAY INSTRUCT AND REINFORCE MEDICATION TEACHING RELATED TO THE USE OF MEDICATIONS, DOSAGE, FREQUENCY, PURPOSE, SIDE EFFECTS, AND TO REPORT COMPLICATIONS. [code = MEDICATION MANAGEMENT; RN/INFECTION PREVENTION COORDINATOR/RETAIL MERCHANDISING SPECIALIST TO REVIEW MEDICATIONS FOR INTERACTIONS, EFFECTIVENESS OF DRUG THERAPY, AND SIGNS/SYMPTOMS OF ADVERSE REACTIONS. MAY INSTRUCT AND REINFORCE MEDICATION TEACHING RELATED TO THE USE OF MEDICATIONS, DOSAGE, FREQUENCY, PURPOSE, SIDE EFFECTS, AND TO REPORT COMPLICATIONS.] Future Scheduled Test RISK FOR H OSPITALIZATION; RN TO ASSESS/TEACH, RETAIL MERCHANDISING SPECIALIST/INFECTION PREVENTION COORDINATOR TO OBSERVE/TEACH PATIENT/CAREGIVER ON RISK FOR HOSPITALIZATION/EMERGENCY ROOM VISITS, TEACH SIGNS AND SYMPTOMS THAT PUT PATIENT AT RISK, WHEN TO NOTIFY NURSE/PHYSICIAN OF COMPLICATIONS/DECLINE, AND WHEN TO CALL 911. [code = RISK FOR HOSPITALIZATION; RN TO ASSESS/TEACH, RETAIL MERCHANDISING SPECIALIST/INFECTION PREVENTION COORDINATOR TO OBSERVE/TEACH PATIENT/CAREGIVER ON RISK FOR HOSPITALIZATION/EMERGENCY ROOM VISITS, TEACH SIGNS AND SYMPTOMS THAT PUT PATIENT AT RISK, WHEN TO NOTIFY NURSE/PHYSICIAN OF COMPLICATIONS/DECLINE, AND WHEN TO CALL 911.] Future Scheduled Test CARDIOVASC ULAR SYSTEM; RN TO ASSESS/TEACH, INFECTION PREVENTION COORDINATOR/RETAIL MERCHANDISING SPECIALIST TO OBSERVE/TEACH RELATED TO ALTERED CARDIOVASCULAR STATUS TO MINIMIZE COMPLICATIONS AND REDUCE HOSPITALIZATION. [code = CARDIOVASCULAR SYSTEM; RN TO ASSESS/TEACH, INFECTION PREVENTION COORDINATOR/RETAIL MERCHANDISING SPECIALIST TO OBSERVE/TEACH RELATED TO ALTERED CARDIOVASCULAR STATUS TO MINIMIZE COMPLICATIONS AND REDUCE HOSPITALIZATION.] Future Scheduled Test HEART FAIL URE; RN TO ASSESS/TEACH, INFECTION PREVENTION COORDINATOR/RETAIL MERCHANDISING SPECIALIST TO OBSERVE/TEACH CARDIOPULMONARY SYSTEM TO IDENTIFY SIGNS [...] [code = HEART FAILURE; RN TO ASSESS/TEACH, INFECTION PREVENTION COORDINATOR/RETAIL MERCHANDISING SPECIALIST TO OBSERVE/TEACH CARDIOPULMONARY SYSTEM TO IDENTIFY SIGNS [...] ON MANAGEMENT; RN TO ASSESS AND TEACH, INFECTION PREVENTION COORDINATOR/RETAIL MERCHANDISING SPECIALIST TO OBSERVE AND TEACH WARNING SIGNS AND SYMPTOMS TO AVOID HOSPITALIZATION. [code = HYPERTENSION MANAGEMENT; RN TO ASSESS AND TEACH, INFECTION PREVENTION COORDINATOR/RETAIL MERCHANDISING SPECIALIST TO OBSERVE AND TEACH WARNING SIGNS AND SYMPTOMS TO AVOID HOSPITALIZATION.] Future Scheduled Test ARRHYTHMIA MANAGEMENT; RN TO ASSESS AND TEACH, INFECTION PREVENTION COORDINATOR/RETAIL MERCHANDISING SPECIALIST TO OBSERVE AND TEACH WARNING SIGNS AND SYMPTOMS TO AVOID HOSPITALIZATION. [code = ARRHYTHMIA MANAGEMENT; RN TO ASSESS AND TEACH, INFECTION PREVENTION COORDINATOR/RETAIL MERCHANDISING SPECIALIST TO OBSERVE AND TEACH WARNING SIGNS AND SYMPTOMS TO AVOID HOSPITALIZATION.] Future Scheduled Test PAIN MANAG EMENT; RN TO ASSESS AND TEACH, RETAIL MERCHANDISING SPECIALIST/INFECTION PREVENTION COORDINATOR TO OBSERVE AND TEACH AND PROVIDE EDUCATION ON PAIN MANAGEMENT TECHNIQUES. [code = PAIN MANAGEMENT; RN TO ASSESS AND TEACH, RETAIL MERCHANDISING SPECIALIST/INFECTION PREVENTION COORDINATOR TO OBSERVE AND TEACH AND PROVIDE EDUCATION ON PAIN MANAGEMENT TECHNIQUES.] Future Scheduled Test GENITOURIN DELANEY MANAGEMENT; RN TO ASSESS AND TEACH, INFECTION PREVENTION COORDINATOR/RETAIL MERCHANDISING SPECIALIST TO OBSERVE AND TEACH RELATED TO ALTERED GENITOURINARY STATUS TO MINIMIZE COMPLICATIONS AND REDUCE HOSPITALIZATION. [code = GENITOURINARY MANAGEMENT; RN TO ASSESS AND TEACH, INFECTION PREVENTION COORDINATOR/RETAIL MERCHANDISING SPECIALIST TO OBSERVE AND TEACH RELATED TO ALTERED GENITOURINARY STATUS TO MINIMIZE COMPLICATIONS AND REDUCE HOSPITALIZATION.] Future Scheduled Test URINARY IN CONTINENCE MANAGEMENT; RN TO ASSESS AND TEACH, INFECTION PREVENTION COORDINATOR/LVNTO OBSERVE AND TEACH MANAGEMENT OF URINARY INCONTINENCE. TEACH/INSTRUCT ON PREVENTING INFECTION AND SKIN BREAKDOWN. RN/INFECTION PREVENTION COORDINATOR/RETAIL MERCHANDISING SPECIALIST MAY INSTRUCT IN BLADDER TRAINING PROGRAM INDICATED. [code = URINARY INCONTINENCE MANAGEMENT; RN TO ASSESS AND TEACH, INFECTION PREVENTION COORDINATOR/LVNTO OBSERVE AND TEACH MANAGEMENT OF URINARY INCONTINENCE. TEACH/INSTRUCT ON PREVENTING INFECTION AND SKIN BREAKDOWN. RN/INFECTION PREVENTION COORDINATOR/RETAIL MERCHANDISING SPECIALIST MAY INSTRUCT IN BLADDER TRAINING PROGRAM INDICATED.] Future Scheduled Test URINARY TR ACT INFECTION MANAGEMENT; RN/RETAIL MERCHANDISING SPECIALIST/INFECTION PREVENTION COORDINATOR TO PROVIDE SKILLED TEACHING AND SELF- CARE MANAGEMENT RELATED TO UTI TO MINIMIZE COMPLICATIONS AND REDUCE THE RISK OF HOSPITALIZATION. [code = URINARY TRACT INFECTION MANAGEMENT; RN/RETAIL MERCHANDISING SPECIALIST/INFECTION PREVENTION COORDINATOR TO PROVIDE SKILLED TEACHING AND SELF- CARE MANAGEMENT RELATED TO UTI TO MINIMIZE COMPLICATIONS AND REDUCE THE RISK OF HOSPITALIZATION.] Future Scheduled Test FALL REDUC TION MANAGEMENT; RN TO ASSESS AND OBSERVE, INFECTION PREVENTION COORDINATOR/RETAIL MERCHANDISING SPECIALIST TO OBSERVE FALL RISK FACTORS AND EDUCATE PATIENT/CAREGIVER ON STRATEGIES TO MINIMIZE THE RISK OF FALLING. [code = FALL REDUCTION MANAGEMENT; RN TO ASSESS AND OBSERVE, INFECTION PREVENTION COORDINATOR/RETAIL MERCHANDISING SPECIALIST TO OBSERVE FALL RISK FACTORS AND EDUCATE [...] Scheduled Test PRN VISITS ; NUMBER OF RN/INFECTION PREVENTION COORDINATOR/RETAIL MERCHANDISING SPECIALIST VISITS: 1 RN/INFECTION PREVENTION COORDINATOR/RETAIL MERCHANDISING SPECIALIST TO PERFORM: 1 VISIT FOR THE FOLLOWING REASONS: WOUND COMPLICATIONS [code = PRN VISITS; NUMBER OF RN/INFECTION PREVENTION COORDINATOR/RETAIL MERCHANDISING SPECIALIST VISITS: 1 RN/INFECTION PREVENTION COORDINATOR/RETAIL MERCHANDISING SPECIALIST TO PERFORM: 1 VISIT FOR THE FOLLOWING REASONS: WOUND COMPLICATIONS] Future Scheduled Test DIABETES M ANAGEMENT; RN TO ASSESS AND TEACH, RETAIL MERCHANDISING SPECIALIST/INFECTION PREVENTION COORDINATOR TO OBSERVE AND TEACH INSTRUCTIONS OF DIABETIC CARE TO INCLUDE: DIET DIABETIC SKIN CARE, SIGNS AND SYMPTOMS OF HYPO/HYPERGLYCEMIA, PROPER ADMINISTRATION OF DIABETIC MEDICATION. RN/RETAIL MERCHANDISING SPECIALIST/INFECTION PREVENTION COORDINATOR TO INSTRUCT ON DIABETIC FOOT CARE AND MONITOR FOR SKIN LESIONS ON LOWER EXTREMITIES. BLOOD GLUCOSE TESTING 4X DAILY FREQ. RN TO ASSESS AND TEACH, RETAIL MERCHANDISING SPECIALIST/INFECTION PREVENTION COORDINATOR TO OBSERVE AND TEACH PATIENT/CAREGIVER ABILITY TO PERFORM AND RECORD BLOOD GLUCOSE TESTING ORDERED AND TO REPORT ABNORMAL FINDINGS TO PHYSICIAN. RN/RETAIL MERCHANDISING SPECIALIST/INFECTION PREVENTION COORDINATOR MAY PERFORM BLOOD GLUCOSE TEST NEEDED. RN/RETAIL MERCHANDISING SPECIALIST/INFECTION PREVENTION COORDINATOR TO REPORT TO PHYSICIAN BLOOD GLUCOSE READINGS GREATER THAN 300 OR LESS THAN 70 RN/RETAIL MERCHANDISING SPECIALIST/INFECTION PREVENTION COORDINATOR TO INSTRUCT PATIENT ON IMPORTANCE OF HGBA1C MONITORING, KIDNEY FUNCTION TEST, EYE AND FOOT EXAMS. [code = DIABETES MANAGEMENT; RN TO ASSESS AND TEACH, RETAIL MERCHANDISING SPECIALIST/INFECTION PREVENTION COORDINATOR TO OBSERVE AND TEACH INSTRUCTIONS OF DIABETIC CARE TO INCLUDE: DIET DIABETIC SKIN CARE, SIGNS AND SYMPTOMS OF HYPO/HYPERGLYCEMIA, PROPER ADMINISTRATION OF DIABETIC MEDICATION. RN/RETAIL MERCHANDISING SPECIALIST/INFECTION PREVENTION COORDINATOR TO INSTRUCT ON DIABETIC FOOT CARE AND MONITOR FOR SKIN LESIONS ON LOWER EXTREMITIES. BLOOD GLUCOSE TESTING 4X DAILY FREQ. RN TO ASSESS AND TEACH, RETAIL MERCHANDISING SPECIALIST/INFECTION PREVENTION COORDINATOR TO OBSERVE AND TEACH PATIENT/CAREGIVER ABILITY TO PERFORM AND RECORD BLOOD GLUCOSE TESTING ORDERED AND TO REPORT ABNORMAL FINDINGS TO PHYSICIAN. RN/RETAIL MERCHANDISING SPECIALIST/INFECTION PREVENTION COORDINATOR MAY PERFORM BLOOD GLUCOSE TEST NEEDED. RN/RETAIL MERCHANDISING SPECIALIST/INFECTION PREVENTION COORDINATOR TO REPORT TO PHYSICIAN BLOOD GLUCOSE READINGS GREATER THAN 300 OR LESS THAN 70 RN/RETAIL MERCHANDISING SPECIALIST/INFECTION PREVENTION COORDINATOR TO INSTRUCT PATIENT ON IMPORTANCE OF HGBA1C MONITORING, KIDNEY FUNCTION TEST, EYE AND FOOT EXAMS.] Future Scheduled Test RN/INFECTION PREVENTION COORDINATOR/RETAIL MERCHANDISING SPECIALIST TO PERFORM/TEACH PATIENT/CAREGIVER WOUND CARE TO COCYX [...] GAUZE COVER WITH FOAM DRESSING [code = RN/INFECTION PREVENTION COORDINATOR/RETAIL MERCHANDISING SPECIALIST TO PERFORM/TEACH PATIENT/CAREGIVER WOUND CARE TO COCYX [...] N MANAGEMENT; RN TO ASSESS AND TEACH/ INFECTION PREVENTION COORDINATOR /RETAIL MERCHANDISING SPECIALIST TO OBSERVE AND TEACH WARNING SIGNS AND SYMPTOMS TO AVOID HOSPITALIZATION. [code = HYPOTENSION MANAGEMENT; RN TO ASSESS AND TEACH/ INFECTION PREVENTION COORDINATOR /RETAIL MERCHANDISING SPECIALIST TO OBSERVE AND TEACH WARNING SIGNS AND SYMPTOMS TO AVOID HOSPITALIZATION.] Future Scheduled Test CANCER MAN AGEMENT; RN TO ASSESS AND TEACH, RETAIL MERCHANDISING SPECIALIST/INFECTION PREVENTION COORDINATOR TO OBSERVE AND TEACH AND PROVIDE EDUCATION ON CANCER. [code = CANCER MANAGEMENT; RN TO ASSESS AND TEACH, RETAIL MERCHANDISING SPECIALIST/INFECTION PREVENTION COORDINATOR TO OBSERVE AND TEACH AND PROVIDE EDUCATION ON CANCER.] Future Scheduled Test AGENCY MAY PERFORM A RESUMPTION OF CARE VISIT FOLLOWING ANY HOSPITAL ADMISSION. PT TO EVALUATE, OBSERVE / ASSESS, AND MONITOR, EXPRESSIVE ART THERAPIST TO OBSERVE AND MONITOR, PROVIDE SKILLED THERAPEUTIC INTERVENTION, ACTIVITY, EDUCATION, AND TRAINING TO ADDRESS; PT/EXPRESSIVE ART THERAPIST TO PROVIDE GAIT TRAINING FOR IMPROVED MOBILITY AND /OR TO NORMALIZE GAIT PATTERN NEUROMUSCULAR RE-EDUCATION / BALANCE / POSTURAL CONTROL (PT) THERAPEUTIC EXERCISES AND ESTABLISHING A HOME EXERCISE PROGRAM (PT/EXPRESSIVE ART THERAPIST) SIT TO/FROM STAND TRANSFERS (PT/EXPRESSIVE ART THERAPIST) PT / EXPRESSIVE ART THERAPIST TO MONITOR FOR HYPO/HYPERGLYCEMIA AND CONDUCT ROUTINE FOOT INSPECTIONS. RECORD PATIENT REPORTED BLOOD SUGAR LEVELS AND NOTIFY PHYSICIAN AND/OR THE RN CLINICAL COMPATIBILITY TEST ENGINEER FOR PHYSICIAN NOTIFICATION IF BLOOD SUGAR LEVELS ARE OUTSIDE ORDERED PARAMETERS. TEACH PATIENT/CAREGIVER ON DAILY FOOT INSPECTIONS PT TO ASSESS / EXPRESSIVE ART THERAPIST TO MONITOR FOR HEART FAILURE EXACERBATION AND RECORD PATIENT REPORTED WEIGHT, AND NOTIFY THE PHYSICIAN AND/OR THE RN CLINICAL COMPATIBILITY TEST ENGINEER FOR PHYSICIAN NOTIFICATION OF HF EXACERBATION (2LB WEIGHT GAIN IN 1 DAY, 5LBS IN A WEEK OR 5 LBS OVER BASELINE; INCREASED SOB, EDEMA, NEEDING MORE PILLOWS AT NIGHT, CRACKLES IN BASIS OF THE LUNGS OR PMI SHIFT) PT TO ASSESS / EXPRESSIVE ART THERAPIST TO MONITOR CARDIO/RESPIRATORY SYSTEM; AND NOTIFY THE PHYSICIAN AND/OR THE RN CLINICAL COMPATIBILITY TEST ENGINEER FOR PHYSICIAN NOTIFICATION FOR EARLY SIGNS AND SYMPTOMS OF EXACERBATION OR DETERIORATION. PT/EXPRESSIVE ART THERAPIST TO IDENTIFY FALL RISK FACTORS; EDUCATE THE PATIENT/CAREGIVER ON WAYS TO REDUCE FALL RISK FACTORS AND ESTABLISH HOME EXERCISE PROGRAM TO MINIMIZE FALL RISK. MAY TEACH THE PATIENT FLOOR RECOVERY WHEN CLINICALLY APPROPRIATE [code = AGENCY MAY PERFORM A RESUMPTION OF CARE VISIT FOLLOWING ANY HOSPITAL ADMISSION. PT TO EVALUATE, OBSERVE / ASSESS, AND MONITOR, EXPRESSIVE ART THERAPIST TO OBSERVE AND MONITOR, PROVIDE SKILLED THERAPEUTIC INTERVENTION, ACTIVITY, EDUCATION, AND TRAINING TO ADDRESS; PT/EXPRESSIVE ART THERAPIST TO PROVIDE GAIT TRAINING FOR IMPROVED MOBILITY AND /OR TO NORMALIZE GAIT PATTERN NEUROMUSCULAR RE-EDUCATION / BALANCE / POSTURAL CONTROL (PT) THERAPEUTIC EXERCISES AND ESTABLISHING A HOME EXERCISE PROGRAM (PT/EXPRESSIVE ART THERAPIST) SIT TO/FROM STAND TRANSFERS (PT/EXPRESSIVE ART THERAPIST) PT / EXPRESSIVE ART THERAPIST TO MONITOR FOR HYPO/HYPERGLYCEMIA AND CONDUCT ROUTINE FOOT INSPECTIONS. RECORD PATIENT REPORTED BLOOD SUGAR LEVELS AND NOTIFY PHYSICIAN AND/OR THE RN CLINICAL COMPATIBILITY TEST ENGINEER FOR PHYSICIAN NOTIFICATION IF BLOOD SUGAR LEVELS ARE OUTSIDE ORDERED PARAMETERS. TEACH PATIENT/CAREGIVER ON DAILY FOOT INSPECTIONS PT TO ASSESS / EXPRESSIVE ART THERAPIST TO MONITOR FOR HEART FAILURE EXACERBATION AND RECORD PATIENT REPORTED WEIGHT, AND NOTIFY THE PHYSICIAN AND/OR THE RN CLINICAL COMPATIBILITY TEST ENGINEER FOR PHYSICIAN NOTIFICATION OF HF EXACERBATION (2LB WEIGHT GAIN IN 1 DAY, 5LBS IN A WEEK OR 5 LBS OVER BASELINE; INCREASED SOB, EDEMA, NEEDING MORE PILLOWS AT NIGHT, CRACKLES IN BASIS OF THE LUNGS OR PMI SHIFT) PT TO ASSESS / EXPRESSIVE ART THERAPIST TO MONITOR CARDIO/RESPIRATORY SYSTEM; AND NOTIFY THE PHYSICIAN AND/OR THE RN CLINICAL COMPATIBILITY TEST ENGINEER FOR PHYSICIAN NOTIFICATION FOR EARLY SIGNS AND SYMPTOMS OF EXACERBATION OR DETERIORATION. PT/EXPRESSIVE ART THERAPIST TO IDENTIFY FALL RISK FACTORS; EDUCATE THE [...] End Date/Time Encounter Type Admission Type Attending [facility] Care Department Encounter ID Discharge Date Discharge Status Discharge Condition Discharge Reason Percent Goals Met 2025-06-21 00:00:00 2025-08-19 00:00:00 Outpatient NEELIMA MONDRAGON [facility] [id number]
--- OUTSIDE RECORDS SUMMARY | 2025-08-18 19:00 | XMS_ITS | Clinical Summary ---
Author Organization Unknown Care Team Providers Care Studio Operator Name Role Phone MC SAIDA CAREY Unavailable Devin ADAMS RN, NEELIMA Unavailable Unavailabl e [employer] JUROR, [place] Unavailable Unavailable MELINA OT, AYAKA Unavailable Unavailable UBALDO PT, MAGI Unavailable Unavailable [employer] DIRECTOR, FATUMA Unavailable Unavailabl e LUPCHO TARYN/REIS, MIKE Unavailable Unavaila ble Payers Payer Name Policy Type Policy Number Effective Date Expira tion Date MEDICARE.[email or web address] [id number] Problems Condition Name Condition Details Condition Category [...] 06-21 00:00: 00 A[address]SCL [address] 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 06-21 [...] TO EXCESS CALORIES Active 06-21 00:00: 00 EKG MANAGER (CURRENT) USE OF ANTIBIOTICS Active 06-21 00:00: 00 GROUP HOME (CURRENT) USE OF INSULIN Active 06-21 00:00: 00 GROUP HOME (CURRENT) USE OF ANTICOAGULAN TS Active 06-21 [...] 04-25 00:00: 00 05-11 00:00 :00 No [id number] Per instruc tions Per instructio ns (route: subcutaneo us) Med Classific ation: Endocrine Novolog FlexPen U-100 Insulin aspart 100 unit/mL (3 mL) subcutaneou s 04-11 00:00: 00 05-11 00:00 :00 No [id number] Per instruc tions THREE TIMES DAILY PER DAY Per instructio ns THREE TIMES DAILY PER DAY ([facility] Med Classific ation: Endocrine acetaminoph en 325 mg tablet 05-11 00:00: 00 Yes [id number] PAIN 2 tablet EVERY 6 HOURS 2 tablet EVERY 6 HOURS (route: oral) Med Classific ation: Analgesic , Anti-infl ammatory or Antipyret ic Eliquis 5 mg tablet 05-11 00:00: 00 Yes [id number] A-FIB 1 tablet 2 TIMES DAILY 1 tablet 2 TIMES DAILY (route: oral) Med Classific ation: Hematolog ical Agents furosemide 40 mg tablet 05-11 00:00: 00 05-26 23:59 :00 No [id number] EDEMA 1 tablet DAILY 1 tablet DAILY (route: oral) Med Classific ation: Cardiovas cular Therapy Agents insulin aspart (U-100) 100 unit/mL (3 mL) [facility] pen 05-11 00:00: 00 06-21 00:00 :00 No [id number] DM 20 unit 3 TIMES DAILY 20 unit 3 TIMES DAILY [facility] Med Classific ation: Endocrine melatonin 3 mg tablet 05-11 00:00: 00 Yes [id number] INSOMNIA 1 tablet BEDTIME 1 tablet BEDTIME (route: oral) Med Classific ation: Central Nervous System Agents Miralax 17 gram/dose oral powder 05-11 00:00: 00 06-21 00:00 :00 No [id number] CONSTIPATIO N 17 gram DAILY 17 gram DAILY (route: oral) Med Classific ation: Gastroint estinal Therapy Agents nitroglycer in 0.4 mg sublingual tablet 05-11 00:00: 00 Yes [id number] CHEST PAIN 1 tablet DIRECTED 1 tablet DIRECTED (route: sublingual ) Med Classific ation: Cardiovas cular Therapy Agents pantoprazol e 40 mg tablet,dale yed release 05-11 00:00: 00 Yes [id number] GERD 1 tablet DAILY 1 tablet DAILY (route: oral) Med Classific ation: Gastroint estinal Therapy Agents Poly-Iron 150 mg iron capsule 05-11 00:00: 00 Yes [id number] SUPPLEMENT 1 capsule DAILY 1 capsule DAILY (route: oral) Med Classific ation: Electroly te Balance-N utritiona l Products ranolazine ER 500 mg tablet,exte nded release,12 hr 05-11 00:00: 00 Yes [id number] ANGINA 1 tablet 2 TIMES DAILY 1 tablet 2 TIMES DAILY (route: oral) Med Classific ation: Cardiovas cular Therapy Agents Repatha SureClick 140 mg/mL subcutane s pen injector 05-11 00:00: 00 06-21 00:00 :00 No [id number] HEART HEALTH 140 mg MONTHLY 140 mg MONTHLY (route: subcutaneo us) Med Classific ation: Cardiovas cular Therapy Agents sennosides 8.6 mg-docusate sodium 50 mg tablet 05-11 00:00: 00 06-21 00:00 :00 No [id number] CONSTIPATIO N 1 tablet 2 TIMES DAILY 1 tablet 2 TIMES DAILY (route: oral) Med Classific ation: Gastroint estinal Therapy Agents sodium chloride 1,000 mg soluble tablet 05-11 00:00: 00 Yes [id number] HYPONATREMI A 1 tablet 2 TIMES DAILY 1 tablet 2 TIMES DAILY (route: miscellane ous) Med Classific ation: Electroly te Balance-N utritiona l Products metolazone 2.5 mg tablet 05-16 00:00: 00 05-19 23:59 :00 No [id number] INCREASED EDEMA 1 tablet DAILY 1 tablet DAILY (route: oral) Med Classific ation: Cardiovas cular Therapy Agents furosemide 40 mg tablet 05-13 00:00: 00 05-17 23:59 :00 No [id number] FLUID OVERLOAD 1 tablet 2 TIMES DAILY 1 tablet 2 TIMES DAILY (route: oral) Alternate Route: BY MOUTH. Med Classific ation: Cardiovas cular Therapy Agents furosemide 40 mg tablet 05-26 00:00: 00 06-21 00:00 :00 No [id number] DIURETIC 1 tablet 2 TIMES DAILY 1 tablet 2 TIMES DAILY (route: oral) Med Classific ation: Cardiovas cular Therapy Agents metolazone 2.5 mg tablet 05-26 00:00: 00 06-21 00:00 :00 No [id number] DIURETIC 1 tablet DAILY 1 tablet DAILY (route: oral) Med Classific ation: Cardiovas cular Therapy Agents trazodone 50 mg tablet 05-26 00:00: 00 06-21 00:00 :00 No [id number] SLEEP AID 1 tablet BEDTIME 1 tablet [...] CONSULTING PHYSICIANS RN TO OBSERVE AND ASSESS, CORONER'S JUROR/ADMINISTRATIVE SUPPORT MANAGER TO OBSERVE FOR RISK FOR FALLS AND INSTRUCT IN FALL PREVENTION, HOME SAFETY, MEDICATION MANAGEMENT, INFECTION PREVENTION, AND NUTRITION MANAGEMENT. RN/CORONER'S JUROR/ADMINISTRATIVE SUPPORT MANAGER NURSE MAY PERFORM O2 SATURATION LEVEL ON ADMISSION AND PRN FOR 1 VISIT FOR RN TO ASSESS/CORONER'S JUROR TO OBSERVE PATIENT, WITH NOTIFICATION TO THE PHYSICIAN IF SATURATION IS 90% IN THE ABSENCE OF MORE SPECIFIC PARAMETERS FROM THE PHYSICIAN. AGENCY MAY PERFORM A RESUMPTION OF CARE VISIT FOLLOWING ANY HOSPITAL ADMISSION. RN/CORONER'S JUROR/ADMINISTRATIVE SUPPORT MANAGER TO MONITOR CO-MORBID CONDITIONS LISTED ON THE PLAN OF CARE AND ANY NEW CONDITIONS THAT PRESENT THEMSELVES DURING THIS EPISODE TO IDENTIFY CHANGES AND INTERVENE TO MINIMIZE COMPLICATIONS. [code = RN TO OBSERVE, ASSESS, EVALUATE, AND DEVELOP AN INDIVIDUALIZED PLAN OF CARE. AGENCY MAY ACCEPT ORDERS FROM CONSULTING PHYSICIANS RN TO OBSERVE AND ASSESS, CORONER'S JUROR/ADMINISTRATIVE SUPPORT MANAGER TO OBSERVE FOR RISK FOR FALLS AND INSTRUCT IN FALL PREVENTION, HOME SAFETY, MEDICATION MANAGEMENT, INFECTION PREVENTION, AND NUTRITION MANAGEMENT. RN/CORONER'S JUROR/ADMINISTRATIVE SUPPORT MANAGER NURSE MAY PERFORM O2 SATURATION LEVEL ON ADMISSION AND PRN FOR 1 VISIT FOR RN TO ASSESS/CORONER'S JUROR TO OBSERVE PATIENT, WITH NOTIFICATION TO THE PHYSICIAN IF SATURATION IS 90% IN THE ABSENCE OF MORE SPECIFIC PARAMETERS FROM THE PHYSICIAN. AGENCY MAY PERFORM A RESUMPTION OF CARE VISIT FOLLOWING ANY HOSPITAL ADMISSION. RN/CORONER'S JUROR/ADMINISTRATIVE SUPPORT MANAGER TO MONITOR CO-MORBID CONDITIONS LISTED ON THE PLAN OF CARE AND ANY NEW CONDITIONS THAT PRESENT THEMSELVES DURING THIS EPISODE TO IDENTIFY CHANGES AND INTERVENE TO MINIMIZE COMPLICATIONS.] Future Scheduled Test MEDICATION MANAGEMENT; RN/CORONER'S JUROR/ADMINISTRATIVE SUPPORT MANAGER TO REVIEW MEDICATIONS FOR INTERACTIONS, EFFECTIVENESS OF DRUG THERAPY, AND SIGNS/SYMPTOMS OF ADVERSE REACTIONS. MAY INSTRUCT AND REINFORCE MEDICATION TEACHING RELATED TO THE USE OF MEDICATIONS, DOSAGE, FREQUENCY, PURPOSE, SIDE EFFECTS, AND TO REPORT COMPLICATIONS. [code = MEDICATION MANAGEMENT; RN/CORONER'S JUROR/ADMINISTRATIVE SUPPORT MANAGER TO REVIEW MEDICATIONS FOR INTERACTIONS, EFFECTIVENESS OF DRUG THERAPY, AND SIGNS/SYMPTOMS OF ADVERSE REACTIONS. MAY INSTRUCT AND REINFORCE MEDICATION TEACHING RELATED TO THE USE OF MEDICATIONS, DOSAGE, FREQUENCY, PURPOSE, SIDE EFFECTS, AND TO REPORT COMPLICATIONS.] Future Scheduled Test RISK FOR H OSPITALIZATION; RN TO ASSESS/TEACH, ADMINISTRATIVE SUPPORT MANAGER/CORONER'S JUROR TO OBSERVE/TEACH PATIENT/CAREGIVER ON RISK FOR HOSPITALIZATION/EMERGENCY ROOM VISITS, TEACH SIGNS AND SYMPTOMS THAT PUT PATIENT AT RISK, WHEN TO NOTIFY NURSE/PHYSICIAN OF COMPLICATIONS/DECLINE, AND WHEN TO CALL 911. [code = RISK FOR HOSPITALIZATION; RN TO ASSESS/TEACH, ADMINISTRATIVE SUPPORT MANAGER/CORONER'S JUROR TO OBSERVE/TEACH PATIENT/CAREGIVER ON RISK FOR HOSPITALIZATION/EMERGENCY ROOM VISITS, TEACH SIGNS AND SYMPTOMS THAT PUT PATIENT AT RISK, WHEN TO NOTIFY NURSE/PHYSICIAN OF COMPLICATIONS/DECLINE, AND WHEN TO CALL 911.] Future Scheduled Test CARDIOVASC ULAR SYSTEM; RN TO ASSESS/TEACH, CORONER'S JUROR/ADMINISTRATIVE SUPPORT MANAGER TO OBSERVE/TEACH RELATED TO ALTERED CARDIOVASCULAR STATUS TO MINIMIZE COMPLICATIONS AND REDUCE HOSPITALIZATION. [code = CARDIOVASCULAR SYSTEM; RN TO ASSESS/TEACH, CORONER'S JUROR/ADMINISTRATIVE SUPPORT MANAGER TO OBSERVE/TEACH RELATED TO ALTERED CARDIOVASCULAR STATUS TO MINIMIZE COMPLICATIONS AND REDUCE HOSPITALIZATION.] Future Scheduled Test HEART FAIL URE; RN TO ASSESS/TEACH, CORONER'S JUROR/ADMINISTRATIVE SUPPORT MANAGER TO OBSERVE/TEACH CARDIOPULMONARY SYSTEM TO IDENTIFY SIGNS [...] [code = HEART FAILURE; RN TO ASSESS/TEACH, CORONER'S JUROR/ADMINISTRATIVE SUPPORT MANAGER TO OBSERVE/TEACH CARDIOPULMONARY SYSTEM TO IDENTIFY SIGNS [...] ON MANAGEMENT; RN TO ASSESS AND TEACH, CORONER'S JUROR/ADMINISTRATIVE SUPPORT MANAGER TO OBSERVE AND TEACH WARNING SIGNS AND SYMPTOMS TO AVOID HOSPITALIZATION. [code = HYPERTENSION MANAGEMENT; RN TO ASSESS AND TEACH, CORONER'S JUROR/ADMINISTRATIVE SUPPORT MANAGER TO OBSERVE AND TEACH WARNING SIGNS AND SYMPTOMS TO AVOID HOSPITALIZATION.] Future Scheduled Test ARRHYTHMIA MANAGEMENT; RN TO ASSESS AND TEACH, CORONER'S JUROR/ADMINISTRATIVE SUPPORT MANAGER TO OBSERVE AND TEACH WARNING SIGNS AND SYMPTOMS TO AVOID HOSPITALIZATION. [code = ARRHYTHMIA MANAGEMENT; RN TO ASSESS AND TEACH, CORONER'S JUROR/ADMINISTRATIVE SUPPORT MANAGER TO OBSERVE AND TEACH WARNING SIGNS AND SYMPTOMS TO AVOID HOSPITALIZATION.] Future Scheduled Test PAIN MANAG EMENT; RN TO ASSESS AND TEACH, ADMINISTRATIVE SUPPORT MANAGER/CORONER'S JUROR TO OBSERVE AND TEACH AND PROVIDE EDUCATION ON PAIN MANAGEMENT TECHNIQUES. [code = PAIN MANAGEMENT; RN TO ASSESS AND TEACH, ADMINISTRATIVE SUPPORT MANAGER/CORONER'S JUROR TO OBSERVE AND TEACH AND PROVIDE EDUCATION ON PAIN MANAGEMENT TECHNIQUES.] Future Scheduled Test GENITOURIN DELANEY MANAGEMENT; RN TO ASSESS AND TEACH, CORONER'S JUROR/ADMINISTRATIVE SUPPORT MANAGER TO OBSERVE AND TEACH RELATED TO ALTERED GENITOURINARY STATUS TO MINIMIZE COMPLICATIONS AND REDUCE HOSPITALIZATION. [code = GENITOURINARY MANAGEMENT; RN TO ASSESS AND TEACH, CORONER'S JUROR/ADMINISTRATIVE SUPPORT MANAGER TO OBSERVE AND TEACH RELATED TO ALTERED GENITOURINARY STATUS TO MINIMIZE COMPLICATIONS AND REDUCE HOSPITALIZATION.] Future Scheduled Test URINARY IN CONTINENCE MANAGEMENT; RN TO ASSESS AND TEACH, CORONER'S JUROR/LVNTO OBSERVE AND TEACH MANAGEMENT OF URINARY INCONTINENCE. TEACH/INSTRUCT ON PREVENTING INFECTION AND SKIN BREAKDOWN. RN/CORONER'S JUROR/ADMINISTRATIVE SUPPORT MANAGER MAY INSTRUCT IN BLADDER TRAINING PROGRAM INDICATED. [code = URINARY INCONTINENCE MANAGEMENT; RN TO ASSESS AND TEACH, CORONER'S JUROR/LVNTO OBSERVE AND TEACH MANAGEMENT OF URINARY INCONTINENCE. TEACH/INSTRUCT ON PREVENTING INFECTION AND SKIN BREAKDOWN. RN/CORONER'S JUROR/ADMINISTRATIVE SUPPORT MANAGER MAY INSTRUCT IN BLADDER TRAINING PROGRAM INDICATED.] Future Scheduled Test URINARY TR ACT INFECTION MANAGEMENT; RN/ADMINISTRATIVE SUPPORT MANAGER/CORONER'S JUROR TO PROVIDE SKILLED TEACHING AND SELF- CARE MANAGEMENT RELATED TO UTI TO MINIMIZE COMPLICATIONS AND REDUCE THE RISK OF HOSPITALIZATION. [code = URINARY TRACT INFECTION MANAGEMENT; RN/ADMINISTRATIVE SUPPORT MANAGER/CORONER'S JUROR TO PROVIDE SKILLED TEACHING AND SELF- CARE MANAGEMENT RELATED TO UTI TO MINIMIZE COMPLICATIONS AND REDUCE THE RISK OF HOSPITALIZATION.] Future Scheduled Test FALL REDUC TION MANAGEMENT; RN TO ASSESS AND OBSERVE, CORONER'S JUROR/ADMINISTRATIVE SUPPORT MANAGER TO OBSERVE FALL RISK FACTORS AND EDUCATE PATIENT/CAREGIVER ON STRATEGIES TO MINIMIZE THE RISK OF FALLING. [code = FALL REDUCTION MANAGEMENT; RN TO ASSESS AND OBSERVE, CORONER'S JUROR/ADMINISTRATIVE SUPPORT MANAGER TO OBSERVE FALL RISK FACTORS AND EDUCATE [...] Scheduled Test PRN VISITS ; NUMBER OF RN/CORONER'S JUROR/ADMINISTRATIVE SUPPORT MANAGER VISITS: 1 RN/CORONER'S JUROR/ADMINISTRATIVE SUPPORT MANAGER TO PERFORM: 1 VISIT FOR THE FOLLOWING REASONS: WOUND COMPLICATIONS [code = PRN VISITS; NUMBER OF RN/CORONER'S JUROR/ADMINISTRATIVE SUPPORT MANAGER VISITS: 1 RN/CORONER'S JUROR/ADMINISTRATIVE SUPPORT MANAGER TO PERFORM: 1 VISIT FOR THE FOLLOWING REASONS: WOUND COMPLICATIONS] Future Scheduled Test DIABETES M ANAGEMENT; RN TO ASSESS AND TEACH, ADMINISTRATIVE SUPPORT MANAGER/CORONER'S JUROR TO OBSERVE AND TEACH INSTRUCTIONS OF DIABETIC CARE TO INCLUDE: DIET DIABETIC SKIN CARE, SIGNS AND SYMPTOMS OF HYPO/HYPERGLYCEMIA, PROPER ADMINISTRATION OF DIABETIC MEDICATION. RN/ADMINISTRATIVE SUPPORT MANAGER/CORONER'S JUROR TO INSTRUCT ON DIABETIC FOOT CARE AND MONITOR FOR SKIN LESIONS ON LOWER EXTREMITIES. BLOOD GLUCOSE TESTING 4X DAILY FREQ. RN TO ASSESS AND TEACH, ADMINISTRATIVE SUPPORT MANAGER/CORONER'S JUROR TO OBSERVE AND TEACH PATIENT/CAREGIVER ABILITY TO PERFORM AND RECORD BLOOD GLUCOSE TESTING ORDERED AND TO REPORT ABNORMAL FINDINGS TO PHYSICIAN. RN/ADMINISTRATIVE SUPPORT MANAGER/CORONER'S JUROR MAY PERFORM BLOOD GLUCOSE TEST NEEDED. RN/ADMINISTRATIVE SUPPORT MANAGER/CORONER'S JUROR TO REPORT TO PHYSICIAN BLOOD GLUCOSE READINGS GREATER THAN 300 OR LESS THAN 70 RN/ADMINISTRATIVE SUPPORT MANAGER/CORONER'S JUROR TO INSTRUCT PATIENT ON IMPORTANCE OF HGBA1C MONITORING, KIDNEY FUNCTION TEST, EYE AND FOOT EXAMS. [code = DIABETES MANAGEMENT; RN TO ASSESS AND TEACH, ADMINISTRATIVE SUPPORT MANAGER/CORONER'S JUROR TO OBSERVE AND TEACH INSTRUCTIONS OF DIABETIC CARE TO INCLUDE: DIET DIABETIC SKIN CARE, SIGNS AND SYMPTOMS OF HYPO/HYPERGLYCEMIA, PROPER ADMINISTRATION OF DIABETIC MEDICATION. RN/ADMINISTRATIVE SUPPORT MANAGER/CORONER'S JUROR TO INSTRUCT ON DIABETIC FOOT CARE AND MONITOR FOR SKIN LESIONS ON LOWER EXTREMITIES. BLOOD GLUCOSE TESTING 4X DAILY FREQ. RN TO ASSESS AND TEACH, ADMINISTRATIVE SUPPORT MANAGER/CORONER'S JUROR TO OBSERVE AND TEACH PATIENT/CAREGIVER ABILITY TO PERFORM AND RECORD BLOOD GLUCOSE TESTING ORDERED AND TO REPORT ABNORMAL FINDINGS TO PHYSICIAN. RN/ADMINISTRATIVE SUPPORT MANAGER/CORONER'S JUROR MAY PERFORM BLOOD GLUCOSE TEST NEEDED. RN/ADMINISTRATIVE SUPPORT MANAGER/CORONER'S JUROR TO REPORT TO PHYSICIAN BLOOD GLUCOSE READINGS GREATER THAN 300 OR LESS THAN 70 RN/ADMINISTRATIVE SUPPORT MANAGER/CORONER'S JUROR TO INSTRUCT PATIENT ON IMPORTANCE OF HGBA1C MONITORING, KIDNEY FUNCTION TEST, EYE AND FOOT EXAMS.] Future Scheduled Test RN/CORONER'S JUROR/ADMINISTRATIVE SUPPORT MANAGER TO PERFORM/TEACH PATIENT/CAREGIVER WOUND CARE TO COCYX [...] GAUZE COVER WITH FOAM DRESSING [code = RN/CORONER'S JUROR/ADMINISTRATIVE SUPPORT MANAGER TO PERFORM/TEACH PATIENT/CAREGIVER WOUND CARE TO COCYX [...] N MANAGEMENT; RN TO ASSESS AND TEACH/ CORONER'S JUROR /ADMINISTRATIVE SUPPORT MANAGER TO OBSERVE AND TEACH WARNING SIGNS AND SYMPTOMS TO AVOID HOSPITALIZATION. [code = HYPOTENSION MANAGEMENT; RN TO ASSESS AND TEACH/ CORONER'S JUROR /ADMINISTRATIVE SUPPORT MANAGER TO OBSERVE AND TEACH WARNING SIGNS AND SYMPTOMS TO AVOID HOSPITALIZATION.] Future Scheduled Test CANCER MAN AGEMENT; RN TO ASSESS AND TEACH, ADMINISTRATIVE SUPPORT MANAGER/CORONER'S JUROR TO OBSERVE AND TEACH AND PROVIDE EDUCATION ON CANCER. [code = CANCER MANAGEMENT; RN TO ASSESS AND TEACH, ADMINISTRATIVE SUPPORT MANAGER/CORONER'S JUROR TO OBSERVE AND TEACH AND PROVIDE EDUCATION ON CANCER.] Future Scheduled Test AGENCY MAY PERFORM A RESUMPTION OF CARE VISIT FOLLOWING ANY HOSPITAL ADMISSION. PT TO EVALUATE, OBSERVE / ASSESS, AND MONITOR, HIGH SCHOOL MUSIC DIRECTOR TO OBSERVE AND MONITOR, PROVIDE SKILLED THERAPEUTIC INTERVENTION, ACTIVITY, EDUCATION, AND TRAINING TO ADDRESS; PT/HIGH SCHOOL MUSIC DIRECTOR TO PROVIDE GAIT TRAINING FOR IMPROVED MOBILITY AND /OR TO NORMALIZE GAIT PATTERN NEUROMUSCULAR RE-EDUCATION / BALANCE / POSTURAL CONTROL (PT) THERAPEUTIC EXERCISES AND ESTABLISHING A HOME EXERCISE PROGRAM (PT/HIGH SCHOOL MUSIC DIRECTOR) SIT TO/FROM STAND TRANSFERS (PT/HIGH SCHOOL MUSIC DIRECTOR) PT / HIGH SCHOOL MUSIC DIRECTOR TO MONITOR FOR HYPO/HYPERGLYCEMIA AND CONDUCT ROUTINE FOOT INSPECTIONS. RECORD PATIENT REPORTED BLOOD SUGAR LEVELS AND NOTIFY PHYSICIAN AND/OR THE RN CLINICAL HOMICIDE SQUAD COMMANDING OFFICER FOR PHYSICIAN NOTIFICATION IF BLOOD SUGAR LEVELS ARE OUTSIDE ORDERED PARAMETERS. TEACH PATIENT/CAREGIVER ON DAILY FOOT INSPECTIONS PT TO ASSESS / HIGH SCHOOL MUSIC DIRECTOR TO MONITOR FOR HEART FAILURE EXACERBATION AND RECORD PATIENT REPORTED WEIGHT, AND NOTIFY THE PHYSICIAN AND/OR THE RN CLINICAL HOMICIDE SQUAD COMMANDING OFFICER FOR PHYSICIAN NOTIFICATION OF HF EXACERBATION (2LB WEIGHT GAIN IN 1 DAY, 5LBS IN A WEEK OR 5 LBS OVER BASELINE; INCREASED SOB, EDEMA, NEEDING MORE PILLOWS AT NIGHT, CRACKLES IN BASIS OF THE LUNGS OR PMI SHIFT) PT TO ASSESS / HIGH SCHOOL MUSIC DIRECTOR TO MONITOR CARDIO/RESPIRATORY SYSTEM; AND NOTIFY THE PHYSICIAN AND/OR THE RN CLINICAL HOMICIDE SQUAD COMMANDING OFFICER FOR PHYSICIAN NOTIFICATION FOR EARLY SIGNS AND SYMPTOMS OF EXACERBATION OR DETERIORATION. PT/HIGH SCHOOL MUSIC DIRECTOR TO IDENTIFY FALL RISK FACTORS; EDUCATE THE PATIENT/CAREGIVER ON WAYS TO REDUCE FALL RISK FACTORS AND ESTABLISH HOME EXERCISE PROGRAM TO MINIMIZE FALL RISK. MAY TEACH THE PATIENT FLOOR RECOVERY WHEN CLINICALLY APPROPRIATE [code = AGENCY MAY PERFORM A RESUMPTION OF CARE VISIT FOLLOWING ANY HOSPITAL ADMISSION. PT TO EVALUATE, OBSERVE / ASSESS, AND MONITOR, HIGH SCHOOL MUSIC DIRECTOR TO OBSERVE AND MONITOR, PROVIDE SKILLED THERAPEUTIC INTERVENTION, ACTIVITY, EDUCATION, AND TRAINING TO ADDRESS; PT/HIGH SCHOOL MUSIC DIRECTOR TO PROVIDE GAIT TRAINING FOR IMPROVED MOBILITY AND /OR TO NORMALIZE GAIT PATTERN NEUROMUSCULAR RE-EDUCATION / BALANCE / POSTURAL CONTROL (PT) THERAPEUTIC EXERCISES AND ESTABLISHING A HOME EXERCISE PROGRAM (PT/HIGH SCHOOL MUSIC DIRECTOR) SIT TO/FROM STAND TRANSFERS (PT/HIGH SCHOOL MUSIC DIRECTOR) PT / HIGH SCHOOL MUSIC DIRECTOR TO MONITOR FOR HYPO/HYPERGLYCEMIA AND CONDUCT ROUTINE FOOT INSPECTIONS. RECORD PATIENT REPORTED BLOOD SUGAR LEVELS AND NOTIFY PHYSICIAN AND/OR THE RN CLINICAL HOMICIDE SQUAD COMMANDING OFFICER FOR PHYSICIAN NOTIFICATION IF BLOOD SUGAR LEVELS ARE OUTSIDE ORDERED PARAMETERS. TEACH PATIENT/CAREGIVER ON DAILY FOOT INSPECTIONS PT TO ASSESS / HIGH SCHOOL MUSIC DIRECTOR TO MONITOR FOR HEART FAILURE EXACERBATION AND RECORD PATIENT REPORTED WEIGHT, AND NOTIFY THE PHYSICIAN AND/OR THE RN CLINICAL HOMICIDE SQUAD COMMANDING OFFICER FOR PHYSICIAN NOTIFICATION OF HF EXACERBATION (2LB WEIGHT GAIN IN 1 DAY, 5LBS IN A WEEK OR 5 LBS OVER BASELINE; INCREASED SOB, EDEMA, NEEDING MORE PILLOWS AT NIGHT, CRACKLES IN BASIS OF THE LUNGS OR PMI SHIFT) PT TO ASSESS / HIGH SCHOOL MUSIC DIRECTOR TO MONITOR CARDIO/RESPIRATORY SYSTEM; AND NOTIFY THE PHYSICIAN AND/OR THE RN CLINICAL HOMICIDE SQUAD COMMANDING OFFICER FOR PHYSICIAN NOTIFICATION FOR EARLY SIGNS AND SYMPTOMS OF EXACERBATION OR DETERIORATION. PT/HIGH SCHOOL MUSIC DIRECTOR TO IDENTIFY FALL RISK FACTORS; EDUCATE THE [...] End Date/Time Encounter Type Admission Type Attending [facility] Facility Care Department Encounter ID Discharge Date Discharge Status Discharge Condition Discharge Reason Percent Goals Met 2025-06-21 00:00:00 2025-08-19 00:00:00 Outpatient NEELIMA MONDRAGON [facility] [id number]
== END 2025-07-08 21:30 | disposition short-term general hospital (02) | DRG 291 ==
PROVIDERS: Nurse Practitioner Adult Health; Admitting Provider Internal Medicine; PCP Family Medicine; Visit Provider Internal Medicine
DX: I13.0 Hypertensive heart and chronic kidney disease with heart failure and stage 1 through stage 4 chronic kidney disease, or unspecified chronic kidney disease (principal); I50.33 Acute on chronic diastolic (congestive) heart failure; D61.818 Other pancytopenia; E87.1 Hypo-osmolality and hyponatremia; N17.9 Acute kidney failure, unspecified; Z68.41 Body mass index [BMI] 40.0-44.9, adult; I48.19 Other persistent atrial fibrillation; S32.592D Other specified fracture of left pubis, subsequent encounter for fracture with routine healing; S32.402D Unspecified fracture of left acetabulum, subsequent encounter for fracture with routine healing; R53.1 Weakness; E11.22 Type 2 diabetes mellitus with diabetic chronic kidney disease; E11.42 Type 2 diabetes mellitus with diabetic polyneuropathy; E66.01 Morbid (severe) obesity due to excess calories; E78.5 Hyperlipidemia, unspecified; G47.33 Obstructive sleep apnea (adult) (pediatric); I44.0 Atrioventricular block, first degree; I27.20 Pulmonary hypertension, unspecified; I25.2 Old myocardial infarction; I07.1 Rheumatic tricuspid insufficiency; I25.10 Atherosclerotic heart disease of native coronary artery without angina pectoris; N18.30 Chronic kidney disease, stage 3 unspecified; R31.0 Gross hematuria; R30.0 Dysuria; R33.9 Retention of urine, unspecified; Z95.1 Presence of aortocoronary bypass graft; Z79.4 Long term (current) use of insulin; Z85.46 Personal history of malignant neoplasm of prostate; Z85.528 Personal history of other malignant neoplasm of kidney; Z95.5 Presence of coronary angioplasty implant and graft; Z96.641 Presence of right artificial hip joint
CPT/HCPCS: 36415; 74176; 80053; 81001; 82948; 85025; 85027; 85055; 87086; 87186; 97110; 97165; 97530; 97535; A9270; J1815